=== PATIENT | female | born 1955 | race Caucasian/White ===

== ENCOUNTER 2017-06-09 11:34 | Emergency (ER) | payer MEDICARE, OTHER ==
--- NOTE | 2017-06-09 12:08 | UC ---
Back Pain HPI - HPI Summary HPI Summary: 62 YEAR OLD FEMALE PRESENTS WITH COMPLAINS OF LEFT LOWER BACK PAIN AFTER RIDING IN A TRUCK. - History of Current Complaint Chief Complaint: UCBackPain Stated Complaint: LOWER BACK PAIN Time Seen by Provider: 06/09/17 12:04 Hx Obtained From: Patient Onset/Duration: Lasting Days Severity Initially: Moderate Severity Currently: Moderate Pain Scale Used: 0-10 Numeric - 6 - Allergies/Home Medications Allergies/Adverse Reactions: Allergies Allergy/AdvReac Type Severity Reaction Status Date / Time Albuterol Allergy racing Verified 06/09/17 11:55 herat and lock jaw Codeine Allergy Nausea And Verified 06/09/17 11:54 Vomiting Sulfamethoxazole Allergy Nausea Verified 06/09/17 11:54 w/Trimethoprim [From Bactrim] Home Medications: Home Medications Canagliflozin (NF) [Invokana (NF)] 100 mg PO BID 06/09/17 [History Confirmed 09/25] Insulin Glargine [Toujeo Solostar] 50 units SUBCUT DAILY 06/09/17 [History Confirmed 06/09/17] PMH/Surg Hx/FS Hx/Imm Hx Previously Healthy: Yes - Surgical History Surgical History: Yes Surgery Procedure, Year, and Place: CHOLECYSTECTOMY, JAMES, SCAR TISSUE REMOVAL - Family History Known Family History: Positive: Diabetes - Social History Alcohol Use: None Substance Use Type: None Smoking Status (MU): Never Smoked Tobacco - Immunization History Most Recent Influenza Vaccination: 2016 Most Recent Tetanus Shot: unk Most Recent Pneumonia Vaccination: 2016 Review of Systems Constitutional: Negative Skin: Negative Eyes: Negative ENT: Negative Respiratory: Negative Cardiovascular: Negative Gastrointestinal: Negative Genitourinary: Negative Motor: Negative Neurovascular: Negative Musculoskeletal: Other: - LOW BACK PAIN Neurological: Negative Psychological: Negative Is Patient Immunocompromised?: No All Other Systems Reviewed And Are Negative: No Physical Exam Triage Information Reviewed: Yes Vital Signs Reviewed: Yes Eye Exam: Normal ENT Exam: Normal Dental Exam: Normal Neck exam: Normal Neck: Positive: 1 Respiratory Exam: Normal Cardiovascular Exam: Normal Abdominal Exam: Normal Musculoskeletal: Positive: Other: - LOW BACK PAIN LEFT SIDED Neurological Exam: Normal Psychological Exam: Normal Skin Exam: Normal Back Pain Course/Dx - Differential Dx/Diagnosis Provider Diagnoses: LEFT SIDED LOWER BACK PAIN Discharge - Discharge Plan Condition: Stable Disposition: HOME Prescriptions: Methocarbamol TAB* [Robaxin 500 MG TAB*] 500 mg PO TID PRN #30 tab PRN Reason: Spasms - Back Patient Education Materials: Sacroiliitis (ED) Referrals: Long Calderón MD [Primary Care Provider] -
[2017-06-09 12:16] VITALS: BP 113/68
== END 2017-06-09 12:10 | disposition home or self-care (01) ==
LOC: UCEAST 11:34
DX: M54.5 Low back pain (principal); Z88.6 Allergy status to analgesic agent; Z88.2 Allergy status to sulfonamides; Z79.4 Long term (current) use of insulin
CPT/HCPCS: 99212; G0463

== ENCOUNTER 2018-03-12 00:10 | Emergency (ER) | payer MEDICARE, OTHER ==
--- OUTSIDE RECORDS SUMMARY | 2018-03-12 00:25 | XMS REPORT ---
:1955 External Reference #:[id number] Author Organization [employer] Address [address] [place] [address] Phone [phone] Care Team Providers Name Role Phone Long Calderón MD Primary Care Physician Unavailable Payers Type Date Identification Numbers Payment Provider Subscriber Medicare Primary Effective: Policy Number: Medicare Ayanna Marquezn 1997 [id number] PayID: [id number] [address] [place] [address] [facility] Policy Number: [id number] [facility] Ayanna Marquezn Group Number: [id number] [address] PayID: [id number] [place] [address] [facility] Effective: Policy Number: [facility] Bari Marquezcris HOGAN 2008 [id number] Expires: 2015 Group Number: [id number] [address] PayID: [id number] [place] [address] Problems Date Description Provider Status Onset: 12/05/2012 Granulomatosis with polyangiitis Ricardo Thompson M.D. Active Onset: 12/05/2012 Chronic pain syndrome Ricardo Thompson M.D. Active Onset: 05/05/2013 Spinal stenosis of lumbar region Ricardo Thompson M.D. 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 Active Onset: 06/22/2013 Cardiac pacemaker in situ Gin Alvarado M.D. Active Onset: 06/22/2013 Difficulty breathing Gin Alvarado M.D. Active Onset: 06/22/2013 Chest pain Gin Alvarado M.D. Active Onset: 06/22/2013 Eruption Gin Alvarado M.D. Active Onset: 07/22/2015 Chronic atrial fibrillation Gin Alvarado M.D. Active Onset: 07/22/2015 Obstructive sleep apnea syndrome Gin Alvarado M.D. Active Onset: 03/02/2016 Complete atrioventricular block Gin Alvarado M.D. Active Onset: 09/20/2016 Burn of foot Charles Bosch M.D. Active Onset: 09/20/2016 Varicose veins of lower extremity Charles Bosch M.D. Active Family History Date Family Member(s) Problem(s) Comments General Coronary Artery Disease (CAD) Brother 45 yo [place], Mother hx CAD, DM General No Current Problems Social History Type Date Description Comments Marital Status Lives With Alone Occupation Disabled Cigarette Use Never Smoked Cigarettes ETOH Use Denies alcohol use Smoking Patient has never smoked Recreational Drug Use Denies Drug Use Daily Caffeine Does Not Consume Caffeine Exercise Type/Frequency Exercises regularly weights with upper body and leg exercises in chair every other day. walking in mobile home durieng bad weather. General Hx Text Allergies, Adverse Reactions, Alerts Date Description Reaction Status Severity Comments 04/02/2011 Bactrim active 04/02/2011 Codeine active 04/02/2011 Albuterol active 04/02/2011 Hydrocodone active 06/19/2013 Sulfa Antibiotics active 06/19/2013 Metformin Diarrhea active 07/22/2015 Lyrica "spacey" active per patient Medications Medication Date Status Form Strength Qnty SIG Indications Ordering Provider Prednisone 02/25 Active Tablets 1mg 1000t take 4 M31.30 abs tabs every Yoko, other day M.D. alternatin g with 5mg every other day Compression 02/25 Active Misc 2unit please use Lennox Stockings /2017 s daily as Yoko, needed for M.D. leg/foot swelling Folic Acid 12/25 Active Tablets 1mg 90tab take one M31.30 s capsule/ta Yoko, blet daily M.D. by mouth Compression 05/07 Active Misc 2unit please use M31.30 s daily as Yoko, needed for M.D. edema/ venous stasis changes Lisinopril 04/13 Active Tablets 5mg 30tab 1 po q bid Gin antonio Alvarado M.D. Furosemide 11/17 Active Tablets 40 1 daily ( taken Pili Thompson along with Potassium) Atenolol Active Tablets 25mg 180ta 1 tab by Gin / bs mouth Iola, twice a M.D. day Buspirone HCL Active Tablets 10mg 60tab 2 tabs po Unknown /0000 s hs Warfarin Sodium Active Tablets 4mg 1 tablet Shallish, alternate MD Long days 09/10 tablet as directed Klor-Con M20 Active Tablets ER 20Meq 30tab 2 tablet Unknown /0000 s po daily ( taken along with Furosemide ) Gabapentin Active Capsules 300mg 1 cap po Pesesky, bid Geno neuropathy M., N.P. Humalog Active Solution 100Unit/M before Pesesky, L meals on Geno sliding M., N.P. scale Invokana Active Tablets 300mg 1 by mouth Unknown 0000 every day Tylenol Active Tablets 325mg take 1-2 Unknown 0000 as needed every 4 hours Victoza Active Solution 18mg/3ML inject 1.2 Unknown 0000 Pen-Inject mg daily in the morning Methotrexate 12/25 Hx Tablets 2.5mg 14tab take 3 M3.30 s capsules/t Yoko, - ablets by M.D. 02/25 mouth once weekly Prednisone 10/11 Hx Tablets 5mg 1 by mouth M31.30 every day Yoko, - M.D. 02/25 [id number] 05/28 Hx Chewtabs 1mg 90uni take one R20.8 ts capsule/ta Yoko, - blet daily M.D. 08/11 sublingual ly Prednisone 05/28 Hx Tablets 1mg 180ta take 5 mg M31.30 bs daily Yoko, - M.D. 10/11 Losartan 10/05 Hx Tablets 25mg 90tab 1 po qd 786.2 Gin Lexx Crook M.D. 04/13 Neurontin 05/25 Hx Capsules 300mg 60cap 1 po bid Lexx Lui M.D. 10/04 Lisinopril 07/01 Hx Tablets 5mg 30tab 1 po qd 786.2 Gin Lexx Crook M.D. 10/05 Carvedilol 06/18 Hx Tablets 12.5mg 60tab 1 po bid Gin Lexx Crook M.D. 12/05 Prednisone 04/02 Hx Tablets 1mg 120ta 5 po qd renato Thompson M.D. - 07/21 Prednisone 11/17 Hx Tablets 5mg 30tab 1 by mouth s every day Pili Thompson - 04/02 Atenolol 11/17 Hx Tablets 25mg 1 three times a Pili Thompson - day 04/02 Premarin 11/17 Hx Tablets 0.9mg 1 every day(liza Thompson M.D. - t no 04/01 longer on) Lisinopril 11/17 Hx Tablets 2.5mg 180ta every day renato Thompson M.D. - 04/01 Omeprazole 11/[address] 20mg bid ( Stop taking per Pili Thompson - patient ) 04/01 Klor-Con M20 11/17 Hx Tablets ER 20Meq every day Pili Thompson - 07/21 Metoclopramide 11/17 Hx Tablets 10mg 1/2 prn Pili Thompson - 12/05 Warfarin Sodium 11/17 Hx Tablets 4mg Pili Thompson - 01/20 Humulin N 11/17 Hx Suspension 100Unit/M L Pili Thompson - 01/21 Magnesium Oxide 11/17 Hx Tablets 400mg Ricardo Pili Thompson - 04/01 Cyclobenzaprine 11/17 Hx Tablets 5mg 60tab 1 p.o bid antonio Thompson M.D. - 06/22 Metformin HCL Hx Tablets 500mg 60tab 1 po qd Unknown /0000 s - 09/09 Colcrys Hx Tablets 0.6mg 20tab take 2 Unknown /0000 s tabs first - now, and 06/22 then 1 tab /2012 one hour after the 2, and then one tab daily until symptoms resolve Victoza Hx Sopn 18mg/3ML 3pens inject 1.8 Unknown /0000 mg sc once - per day ( 07/[address]Christi steffen Rodriguez,[facility] MOUNTERRosales bailon)(no longer taking) Prednisone Hx Tablets 5mg 1 tablet M31.30 Shallish, /0000 po daily MD Long - Am 05/28 Novolin N 00 Hx Suspension 100Unit/M 38 in am, Unknown /0000 L 38 in p.m. - 07/15 Invokana Hx Tablets 100mg take 1 tab Shallish, /0000 in am MD Long - 11/26 Toujeo Solostar Hx Solution 300Unit/M 66 units Shallish, /0000 Pen-Inject L daily Am MD Long - (if BS 12/25 200,takes humalog) Methocarbamol Hx Tablets 500mg 1 three Unknown /0000 times a - day as 07/10 Vital Signs Date Vital Result Comment 02/25/2018 Height 67.50 inches 5'7.50" Weight 227.00 lb Heart Rate 82 /min BP Systolic 122 mmHg BP Diastolic 82 mmHg Pain Level 0 O2 % BldC Oximetry 97 % BMI (Body Mass Index) 35.0 kg/m2 12/25/2017 Height 67.50 inches 5'7.50" Weight 239.00 lb Heart Rate 68 /min BP Systolic Sitting 122 mmHg BP Diastolic Sitting 84 mmHg Respiratory Rate 14 /min Pain Level 0 BMI (Body Mass Index) 36.9 kg/m2 12/02/2017 Height 67.50 inches 5'7.50" Weight 244.00 lb Heart Rate 71 /min full minute apical BP Systolic Sitting 105 mmHg BP Diastolic Sitting 73 mmHg Respiratory Rate 16 /min Pain Level 3 O2 % BldC Oximetry 99 % ra BMI (Body Mass Index) 37.6 kg/m2 10/11/2017 Height 67.50 inches 5'7.50" Weight 242.00 lb w/ shoes Heart Rate 58 /min hard to palpate, unable to ausculatate at chest. BP Systolic Sitting 104 mmHg lue large cuff BP Diastolic Sitting 68 mmHg lue large cuff Respiratory Rate 22 /min BMI (Body Mass Index) 37.3 kg/m2 Ejection Fraction 55-60% echo 07/08/17 07/23/2017 Height 67.50 inches 5'7.50" Weight 233.50 lb with shoes Heart Rate 64 /min BP Systolic Sitting 112 mmHg Rue reg cuff BP Diastolic Sitting 76 mmHg Rue reg cuff BP Systolic Standing 114 mmHg Rue reg cuff BP Diastolic Standing 68 mmHg Rue reg cuff Respiratory Rate 18 /min BMI (Body Mass Index) 36.0 kg/m2 Ejection Fraction 55-60% 07/08/2017-echo 07/16/2017 Height 67.50 inches 5'7.50" Weight 237.75 lb with shoes Heart Rate 62 /min BP Systolic Sitting 94 mmHg Rue reg cuff BP Diastolic Sitting 70 mmHg Rue reg cuff BP Systolic Standing 100 mmHg Rue reg cuff BP Diastolic Standing 70 mmHg Rue reg cuff Respiratory Rate 16 /min O2 % BldC Oximetry 99 % at room air HR flucuate 60-41 bpms BMI (Body Mass Index) 36.7 kg/m2 Ejection Fraction 55-60% date 07/08/17 ECHO 06/11/2017 Height 67.50 inches 5'7.50" Weight 235.00 lb no shoes Heart Rate 64 /min BP Systolic Sitting 112 mmHg Rue reg cuff BP Diastolic Sitting 70 mmHg Rue reg cuff BP Systolic Standing 116 mmHg Rue reg cuff BP Diastolic Standing 74 mmHg Rue reg cuff Respiratory Rate 17 /min BMI (Body Mass Index) 36.3 kg/m2 Ejection Fraction 55-60% 02/13/2016-echo 10/17/2016 Height 67.50 inches 5'7.50" Weight 231.00 lb without shoes Heart Rate 62 /min BP Systolic Sitting 100 mmHg Lue lg cuff BP Diastolic Sitting 70 mmHg Lue lg cuff BP Systolic Standing 108 mmHg Lue lg cuff BP Diastolic Standing 70 mmHg Lue lg cuff Respiratory Rate 17 /min BMI (Body Mass Index) 35.6 kg/m2 09/20/2016 Height 66.25 inches 5'6.25" Weight 233.00 lb w/ shoes Heart Rate 70 /min irreg BP Systolic Sitting 120 mmHg Rue, reg cuff BP Diastolic Sitting 76 mmHg Rue, reg cuff Respiratory Rate 16 /min BMI (Body Mass Index) 37.3 kg/m2 Ejection Fraction 55-60% as of 02/13/16 echo 05/28/2016 Height 66.25 inches 5'6.25" Weight 235.00 lb Heart Rate 68 /min BP Systolic Sitting 114 mmHg BP Diastolic Sitting 70 mmHg Respiratory Rate 14 /min Body Temperature 97.7 F Pain Level 0 BMI (Body Mass Index) 37.6 kg/m2 05/07/2016 Height 66.25 inches 5'6.25" Weight 235.38 lb Heart Rate 72 /min BP Systolic Sitting 100 mmHg BP Diastolic Sitting 70 mmHg Respiratory Rate 14 /min Body Temperature 97.3 F Pain Level 0 BMI (Body Mass Index) 37.7 kg/m2 04/02/2016 Height 66.25 inches 5'6.25" Weight 233.00 lb with lite shoes Heart Rate 60 /min BP Systolic Sitting 100 mmHg Ra reg cuff BP Diastolic Sitting 64 mmHg Ra reg cuff BP Systolic Standing 108 mmHg Ra reg cuff BP Diastolic Standing 70 mmHg Ra reg cuff Respiratory Rate 16 /min BMI (Body Mass Index) 37.3 kg/m2 Ejection Fraction 55-60% date 02/13/16 ECHO 03/02/2016 Height 66.25 inches 5'6.25" Weight 231.00 lb with light shoes Heart Rate 70 /min BP Systolic Sitting 100 mmHg Ra lg cuff BP Diastolic Sitting 70 mmHg Ra lg cuff BP Systolic Standing 110 mmHg Ra lg cuff BP Diastolic Standing 70 mmHg Ra lg cuff Respiratory Rate 15 /min BMI (Body Mass Index) 37.0 kg/m2 Ejection Fraction 55-60% date 02/13/16 ECHO 07/22/2015 Height 66.25 inches 5'6.25" Weight 240.00 lb with shoes Heart Rate 62 /min BP Systolic Sitting 110 mmHg LA lg cuff BP Diastolic Sitting 70 mmHg LA lg cuff BP Systolic Standing 104 mmHg LA lg cuff BP Diastolic Standing 70 mmHg LA lg cuff Respiratory Rate 16 /min BMI (Body Mass Index) 38.4 kg/m2 Ejection Fraction 55-60% date 12/17/12 ECHO 01/21/2015 Height 66.25 inches 5'6.25" Weight 239.31 lb with shoes Heart Rate 62 /min BP Systolic Sitting 124 mmHg LA lg cuff BP Diastolic Sitting 80 mmHg LA lg cuff BP Systolic Standing 126 mmHg LA lg cuff BP Diastolic Standing 80 mmHg LA lg cuff Respiratory Rate 16 /min BMI (Body Mass Index) 38.3 kg/m2 Ejection Fraction 50-55% date 12/17/12 06/01/2014 Height 66.25 inches 5'6.25" Weight 250.00 lb with shoes Heart Rate 62 /min BP Systolic Sitting 116 mmHg LA, Lg cuff BP Diastolic Sitting 78 mmHg LA, Lg cuff BP Systolic Standing 114 mmHg LA BP Diastolic Standing 72 mmHg LA Respiratory Rate 16 /min BMI (Body Mass Index) 40.0 kg/m2 04/14/2014 Height 66.25 inches 5'6.25" Weight 245.00 lb Heart Rate 64 /min BP Systolic Sitting 126 mmHg BP Diastolic Sitting 70 mmHg Respiratory Rate 16 /min BMI (Body Mass Index) 39.2 kg/m2 10/05/2013 Height 66.25 inches 5'6.25" Weight 239.00 lb no shoes Heart Rate 66 /min BP Systolic Sitting 134 mmHg Rt arm, Lg cuff BP Diastolic Sitting 80 mmHg Rt arm, Lg cuff BP Systolic Standing 130 mmHg BP Diastolic Standing 80 mmHg Respiratory Rate 18 /min BMI (Body Mass Index) 38.3 kg/m2 06/22/2013 Height 66 inches 5'6" Weight 227.00 lb Heart Rate 65 /min BP Systolic Sitting 116 mmHg Rt arm, Lrg cuff BP Diastolic Sitting 70 mmHg Rt arm, Lrg cuff BP Systolic Standing 114 mmHg BP Diastolic Standing 74 mmHg Respiratory Rate 16 /min BMI (Body Mass Index) 36.6 kg/m2 05/25/2013 Height 67 inches 5'7" Weight 235.00 lb Heart Rate 64 /min BP Systolic 139 mmHg BP Diastolic 73 mmHg BMI (Body Mass Index) 36.8 kg/m2 05/05/2013 Height 242 inches 20'2" Weight 243.00 lb Heart Rate 68 /min BP Systolic Sitting 110 mmHg BP Diastolic Sitting 70 mmHg BMI (Body Mass Index) 2.9 kg/m2 04/01/2013 Height 242 inches 20'2" Weight 258.00 lb Heart Rate 84 /min BP Systolic Sitting 122 mmHg BP Diastolic Sitting 70 mmHg BMI (Body Mass Index) 3.1 kg/m2 12/05/2012 Height 242 inches Weight 65.00 lb Heart Rate 68 /min BP Systolic Sitting 121 mmHg BP Diastolic Sitting 64 mmHg BMI (Body Mass Index) 0.8 kg/m2 08/20/2012 Weight 245.00 lb Heart Rate 70 /min BP Systolic 130 mmHg BP Diastolic 70 mmHg Respiratory Rate 18 /min 04/02/2011 Height 67 inches 5'7" Weight 238.00 lb Heart Rate 78 /min BP Systolic 100 mmHg BP Diastolic 70 mmHg BMI (Body Mass Index) 37.3 kg/m2 11/17/2010 Height 67 inches 5'7" Weight 244.00 lb BMI (Body Mass Index) 38.2 kg/m2 Results Test Date Test Result H/L Range Note Protein Electrophoresis 01/15/2018 Total Protein(Pep) 7.4 g/dL 6.3 - 7.9 Albumin 2.9 g/dL 3.4-4.7 Alpha-1 Globulin 0.2 g/dL 0.1-0.3 Alpha-2 Globulin 1.4 g/dL 0.6-1.0 Beta Globulin 1.0 g/dL 0.7-1.2 Gamma Globulin 1.9 g/dL 0.6-1.6 Albumin/Globulin Ratio 0.63 Impression See Comment 1 Laboratory test finding 01/15/2018 C Reactive Protein 4.50 mg/L < 5.00 2 Erythrocyte Sed Rate 56 mm/Hr High 0-30 3 Myeloperoxidase AB <0.2 U 4 Proteinase 3 0.3 U 5 Comp Metabolic Panel 01/15/2018 Sodium 141 mmol/L 139-145 Potassium 3.9 mmol/L 3.5-5.0 Chloride 107 mmol/L 101-111 Co2 Carbon Dioxide 25 mmol/L 22-32 Anion Gap 9 mmol/L 2-11 Glucose 191 mg/dL High 70-100 Blood Urea Nitrogen 16 mg/dL 6-24 Creatinine 0.70 mg/dL 0.51-0.95 BUN/Creatinine Ratio 22.9 High 8-20 Calcium 9.3 mg/dL 8.6-10.3 Total Protein 7.1 g/dL 6.4-8.9 Albumin 3.5 g/dL 3.2-5.2 Globulin 3.6 g/dL 2-4 Albumin/Globulin Ratio 1.0 1-3 Total Bilirubin 0.40 mg/dL 0.2-1.0 Alkaline Phosphatase 65 U/L 34-104 Alt 15 U/L 7-52 Ast 26 U/L 13-39 Egfr Non- 84.5 >60 Egfr 108.7 >60 6 CBC Auto Diff 01/15/2018 White Blood Count 7.7 10^3/uL 3.5-10.8 Red Blood Count 4.53 10^6/uL 4.0-5.4 Hemoglobin 12.9 g/dL 12.0-16.0 Hematocrit 39 % 35-47 Mean Corpuscular Volume 86 fL 80-97 Mean Corpuscular Hemoglobin 29 pg 27-31 Mean Corpuscular HGB Conc 33 g/dL 31-36 Red Cell Distribution Width 14 % 10.5-15 Platelet Count 348 10^3/uL 150-450 Mean Platelet Volume 8.1 um3 7.4-10.4 Abs Neutrophils 3.8 10^3/uL 1.5-7.7 Abs Lymphocytes 3.1 10^3/uL 1.0-4.8 Abs Monocytes 0.6 10^3/uL 0-0.8 Abs Eosinophils 0.1 10^3/uL 0-0.6 Abs Basophils 0 10^3/uL 0-0.2 Abs Nucleated RBC 0 10^3/uL Granulocyte % 50.1 % 38-83 Lymphocyte % 40.4 % 25-47 Monocyte % 7.8 % High 0-7 Eosinophil % 1.2 % 0-6 Basophil % 0.5 % 0-2 Nucleated Red Blood Cells % 0.1 Urine Culture And Sensitivities 12/10/2017 Urine Culture SEE RESULT BELOW 7 Urinalysis Profile 12/10/2017 Urine Color Yellow Urine Appearance Clear Urine Specific Cunningham 1.023 1.010-1.030 Urine pH 5.0 5-9 Urine Urobilinogen Negative Negative Urine Ketones Negative Negative Urine Protein Negative Negative Urine Leukocytes Trace Negative Urine Blood Negative Negative Urine Nitrite Negative Negative Urine Bilirubin Negative Negative Urine Glucose 3+(>=500 mg/dL) Negative Urine White Blood Cell Trace(0-5/hpf) Absent Urine Red Blood Cell Trace(0-2/hpf) Absent Urine Bacteria Absent Absent Urine Squamous Epithelial Cell Present Absent Comp Metabolic Panel 12/10/2017 Sodium 139 mmol/L 139-145 Potassium 4.5 mmol/L 3.5-5.0 Chloride 103 mmol/L 101-111 Co2 Carbon Dioxide 26 mmol/L 22-32 Anion Gap 10 mmol/L 2-11 Glucose 249 mg/dL High 70-100 Blood Urea Nitrogen 30 mg/dL High 6-24 Creatinine 0.90 mg/dL 0.51-0.95 BUN/Creatinine Ratio 33.3 High 8-20 Calcium 9.6 mg/dL 8.6-10.3 Total Protein 7.1 g/dL 6.4-8.9 Albumin 3.7 g/dL 3.2-5.2 Globulin 3.4 g/dL 2-4 Albumin/Globulin Ratio 1.1 1-3 Total Bilirubin 0.40 mg/dL 0.2-1.0 Alkaline Phosphatase 68 U/L 34-104 Alt 19 U/L 7-52 Ast 26 U/L 13-39 Egfr Non- 63.4 >60 Egfr 81.6 >60 8 Laboratory test finding 12/10/2017 Creatine Kinase(CK) 78 U/L 10-223 TSH (Thyroid Stim Horm) 2.10 mcIU/mL 0.34-5.60 C Reactive Protein 11.27 mg/L High < 5.00 9 CBC Auto Diff 12/10/2017 White Blood Count 7.5 10^3/uL 3.5-10.8 Red Blood Count 4.62 10^6/uL 4.0-5.4 Hemoglobin 13.3 g/dL 12.0-16.0 Hematocrit 40 % 35-47 Mean Corpuscular Volume 86 fL 80-97 Mean Corpuscular Hemoglobin 29 pg 27-31 Mean Corpuscular HGB Conc 33 g/dL 31-36 Red Cell Distribution Width 15 % 10.5-15 Platelet Count 278 10^3/uL 150-450 Mean Platelet Volume 8.3 um3 7.4-10.4 Abs Neutrophils 3.9 10^3/uL 1.5-7.7 Abs Lymphocytes 2.7 10^3/uL 1.0-4.8 Abs Monocytes 0.6 10^3/uL 0-0.8 Abs Eosinophils 0.1 10^3/uL 0-0.6 Abs Basophils 0.1 10^3/uL 0-0.2 Abs Nucleated RBC 0 10^3/uL Granulocyte % 52.3 % 38-83 Lymphocyte % 36.3 % 25-47 Monocyte % 8.7 % High 0-7 Eosinophil % 1.7 % 0-6 Basophil % 1.0 % 0-2 Nucleated Red Blood Cells % 0.2 Laboratory test finding 12/10/2017 Erythrocyte Sed Rate 55 mm/Hr High 0- 30 Anca AB Ser If 12/10/2017 C-Anca Negative Negative P-Anca Positive Negative 10 Laboratory test finding 12/10/2017 Anti Double Stranded Dna <12.3 IU/mL 11 AB CBC Auto Diff 07/25/2017 White Blood Count 8.9 10^3/uL 3.5-10.8 Red Blood Count 4.99 10^6/uL 4.0-5.4 Hemoglobin 14.3 g/dL 12.0-16.0 Hematocrit 43 % 35-47 Mean Corpuscular Volume 87 fL 80-97 Mean Corpuscular Hemoglobin 29 pg 27-31 Mean Corpuscular HGB Conc 33 g/dL 31-36 Red Cell Distribution Width 14 % 10.5-15 Platelet Count 310 10^3/uL 150-450 Mean Platelet Volume 8 um3 7.4-10.4 Abs Neutrophils 5.8 10^3/uL 1.5-7.7 Abs Lymphocytes 2.4 10^3/uL 1.0-4.8 Abs Monocytes 0.5 10^3/uL 0-0.8 Abs Eosinophils 0.2 10^3/uL 0-0.6 Abs Basophils 0.1 10^3/uL 0-0.2 Abs Nucleated RBC 0 10^3/uL Granulocyte % 65.1 % 38-83 Lymphocyte % 26.4 % 25-47 Monocyte % 5.5 % 1-9 Eosinophil % 1.9 % 0-6 Basophil % 1.1 % 0-2 Nucleated Red Blood Cells % 0 Laboratory test finding 07/25/2017 B-Type Natriuretic 153 pg/mL High 12 Peptide BNP Basic Metabolic Panel 07/25/2017 Sodium 139 mmol/L 133-145 Potassium 4.9 mmol/L 3.5-5.0 Chloride 104 mmol/L 101-111 Co2 Carbon Dioxide 28 mmol/L 22-32 Anion Gap 7 mmol/L 2-11 Glucose 151 mg/dL High 70-100 Blood Urea Nitrogen 23 mg/dL 6-24 Creatinine 0.69 mg/dL 0.51-0.95 BUN/Creatinine Ratio 33.3 High 8-20 Calcium 10.1 mg/dL 8.6-10.3 Egfr Non- 86.2 >60 Egfr 110.9 >60 13 Laboratory test finding 07/25/2017 Magnesium 2.0 mg/dL 1.9-2.7 Laboratory test finding 07/23/2017 B-Type Natriuretic Peptide <pending> BNP Laboratory test finding 07/23/2017 Magnesium <pending> TSH (Thyroid Stim Horm) <pending> Laboratory test 07/10/2017 Surgical Pathology SEE RESULT BELOW 14 finding Laboratory test 07/10/2017 Point of Care 173 mg/dL High 70-100 15 finding Glucose Laboratory test 10/29/2016 Apligraf SEE RESULTS BELO 16, 17 finding <SEE NOTE> Laboratory test 05/07/2016 C Reactive Protein 4.41 mg/L < 5.00 18 finding Erythrocyte Sed Rate 39 mm/Hr High 0-30 Urine Culture And 05/07/2016 Urine Culture SEE RESULT BELOW 19 Sensitivities Anca AB Ser If 05/07/2016 C-Anca Negative Negative P-Anca Positive Negative 20 Comp Metabolic Panel 05/07/2016 Sodium 136 mmol/L 133-145 Potassium 4.4 mmol/L 3.5-5.0 Chloride 102 mmol/L 101-111 Co2 Carbon Dioxide 25 mmol/L 22-32 Anion Gap 9 mmol/L 2-11 Glucose 300 mg/dL High 70-100 Blood Urea Nitrogen 25 mg/dL High 6-24 Creatinine 0.70 mg/dL 0.51-0.95 BUN/Creatinine Ratio 35.7 High 8-20 Calcium 9.6 mg/dL 8.6-10.3 Total Protein 7.6 g/dL 6.4-8.9 Albumin 3.9 g/dL 3.2-5.2 Globulin 3.7 g/dL 2-4 Albumin/Globulin Ratio 1.1 1-3 Total Bilirubin 0.70 mg/dL 0.2-1.0 Alkaline Phosphatase 48 U/L 34-104 Alt 30 U/L 7-52 Ast 44 U/L High 13-39 Egfr Non- 85.1 >60 Egfr 109.4 >60 21 CBC Auto Diff 05/07/2016 White Blood Count 7.8 10^3/uL 3.5-10.8 Red Blood Count 4.59 10^6/uL 4.0-5.4 Hemoglobin 13.2 g/dL 12.0-16.0 Hematocrit 40 % 35-47 Mean Corpuscular Volume 87 fL 80-97 Mean Corpuscular Hemoglobin 29 pg 27-31 Mean Corpuscular HGB Conc 33 g/dL 31-36 Red Cell Distribution Width 14 % 10.5-15 Platelet Count 282 10^3/uL 150-450 Mean Platelet Volume 9 um3 7.4-10.4 Abs Neutrophils 4.5 10^3/uL 1.5-7.7 Abs Lymphocytes 2.5 10^3/uL 1.0-4.8 Abs Monocytes 0.7 10^3/uL 0-0.8 Abs Eosinophils 0.1 10^3/uL 0-0.6 Abs Basophils 0.1 10^3/uL 0-0.2 Abs Nucleated RBC 0.01 10^3/uL Granulocyte % 57.0 % 38-83 Lymphocyte % 31.7 % 25-47 Monocyte % 8.6 % 1-9 Eosinophil % 1.7 % 0-6 Basophil % 1.0 % 0-2 Nucleated Red Blood Cells % 0.2 Laboratory test finding 05/07/2016 Creatine Kinase(CK) 97 U/L 10-223 Free Cortisol Serum 0.11 g/dL 22 Vitamin B12 And Folate Serum 05/07/2016 Vitamin B12 222 pg/mL 180-914 23 Folic Acid (Folate) > 20.00 ng/mL >3.99 Vitamin D 1,25 And Vitamin 05/07/2016 Vitamin D, 1,25 Dihydroxy 46 pg/mL 18-78 24 D,2 Urinalysis Profile 05/07/2016 Urine Color Yellow Urine Appearance Cloudy Urine Specific Cunningham 1.023 1.010-1.030 Urine pH 5.0 5-9 Urine Urobilinogen Negative Negative Urine Ketones Negative Negative Urine Protein Negative Negative Urine Leukocytes 3+ Negative Urine Blood Negative Negative Urine Nitrite Negative Negative Urine Bilirubin Negative Negative Urine Glucose 3+(>=500 mg/dL) Negative Urine White Blood Cell Trace(0-5/hpf) Absent Urine Red Blood Cell Trace(0-2/hpf) Absent Urine Bacteria Absent Absent Urine Squamous Epithelial Cell Present Absent Order 03/02/2016 EKG <pending> Urinalysis 04/02/2013 Urine Color Yellow Urine Appearance Clear Urine Specific Cunningham 1.031 High 1.010-1.030 Urine Esterase Negative Negative Urine Nitrate Negative Negative Urine Urobilinogen Negative E.U./dL Negative Urine Protein Trace mg/dL Negative Urine pH 6.0 5-9 Urine Blood Trace Negative Urine Ketones 1+ mg/dL Negative Urine Bilirubin Negative Negative Urine Glucose Negative mg/dL Negative Neutrophil Cytoplasmic AB 04/02/2013 C-Anca Negative Negative P Anca Negative Negative Anca Reviewed By MD Ajit Jacobs <SEE NOTE> 25 Urine Microscopic 04/02/2013 Urine WBC 1+ (<10 /hpf) None Seen Urine RBC 1+ (<3 /hpf) None Seen Urine Mucus Present /lpf Absent Urine Epithelial Cells 2+ Squamous /hpf None Seen Bacteria Urine 1+ None Seen Anca Panel For Vasculitis 04/02/2013 Myeloperoxidase AB <0.2 U 26 Proteinase 3 AB <0.2 U 27 CBC With Manual Diff 04/02/2013 White Blood Count 7.2 10^3/uL 4.8-10.8 Red Blood Count 4.17 10^6/uL 4.0-5.4 Hemoglobin 12.2 g/dL 12.0-16.0 Hematocrit 37 % 35-47 Mean Corpuscular Volume 89 fL 80-97 Mean Corpuscular Hemoglobin 29 pg 27-31 Mean Corpuscular HGB Conc 33 g/dL 31-36 Red Cell Distribution Width 14 % 10.5-15 Platelet Count 248 10^3/uL 150-450 Mean Platelet Volume 9 um3 7.4-10.4 Abs Neutrophils 3.9 10^3/uL 1.5-7.7 Abs Lymphocytes 2.5 10^3/uL 1.0-4.8 Abs Monocytes 0.6 10^3/uL 0-0.8 Abs Eosinophils 0.1 10^3/uL 0-0.6 Abs Basophils 0.1 10^3/uL 0-0.2 Abs Nucleated RBC 0.01 10^3/uL Neutrophil % 54 % 38-83 Lymphocytes % 42 % 25-47 Monocytes % 4 % 0-13 RBC Morphology Normal Normal Comp Metabolic Panel 04/02/2013 Sodium 139 mmol/L 133-145 Potassium 4.0 mmol/L 3.5-5.0 Chloride 104 mmol/L 101-111 Co2 Carbon Dioxide 27.0 mmol/L 22-32 Anion Gap 8.0 mmol/L 2-11 Glucose 211 mg/dL High 70-100 Blood Urea Nitrogen 17 mg/dL 6-24 Creatinine 0.60 mg/dL 0.50-1.40 BUN/Creatinine Ratio 28.3 High 8-20 Calcium 9.2 mg/dL 8.1-9.9 Total Protein 6.6 g/dL 6.2-8.1 Albumin 3.2 g/dL Low 3.6-5.4 Globulin 3.4 g/dL 2-4 Albumin/Globulin Ratio 0.9 Low 1-3 Total Bilirubin 0.9 mg/dL 0.4-1.5 Alkaline Phosphatase 48 U/L 30-110 Alt 18 U/L 14-54 Ast 44 U/L High 12-42 Egfr Non- 102.7 >60 Egfr 132.1 >60 28 Laboratory test finding 04/02/2013 C Reactive Protein 1.3 mg/dL High Less than 0.5 Erythrocyte Sed Rate 48 mm/Hr High 0-30 Urinalysis 01/05/2013 Urine Color Yellow Urine Appearance Clear Urine Specific Cunningham 1.023 1.010-1.030 Urine Esterase Trace Negative Urine Nitrate Negative Negative Urine Urobilinogen Negative E.U./dL Negative Urine Protein Negative mg/dL Negative Urine pH 5.5 5-9 Urine Blood Negative Negative Urine Ketones Negative mg/dL Negative Urine Bilirubin Negative Negative Urine Glucose Trace mg/dL Negative Comp Metabolic Panel 01/05/2013 Sodium 138 mmol/L 133-145 Potassium 4.2 mmol/L 3.5-5.0 Chloride 101 mmol/L 101-111 Co2 Carbon Dioxide 29.0 mmol/L 22-32 Anion Gap 8.0 mmol/L 2-11 Glucose 213 mg/dL High 70-100 Blood Urea Nitrogen 11 mg/dL 6-24 Creatinine 0.70 mg/dL 0.50-1.40 BUN/Creatinine Ratio 15.7 8-20 Calcium 9.2 mg/dL 8.1-9.9 Total Protein 7.0 g/dL 6.2-8.1 Albumin 3.4 g/dL Low 3.6-5.4 Globulin 3.6 g/dL 2-4 Albumin/Globulin Ratio 0.9 Low 1-3 Total Bilirubin 0.7 mg/dL 0.4-1.5 Alkaline Phosphatase 50 U/L 30-110 Alt 21 U/L 14-54 Ast 48 U/L High 12-42 Egfr Non- 86.2 >60 Egfr 110.9 >60 29 Neutrophil Cytoplasmic AB 01/05/2013 C-Anca Negative Negative P Anca Negative Negative Anca Reviewed By MD Ajit Jacobs <SEE NOTE> 30 Laboratory test finding 01/05/2013 Erythrocyte Sed Rate 48 mm/Hr High 0- 30 C Reactive Protein 1.2 mg/dL High Less than 0.5 CBC With Manual Diff 01/05/2013 White Blood Count 9.3 10^3/uL 4.8-10.8 Red Blood Count 4.36 10^6/uL 4.0-5.4 Hemoglobin 12.8 g/dL 12.0-16.0 Hematocrit 40 % 35-47 Mean Corpuscular Volume 91 fL 80-97 Mean Corpuscular Hemoglobin 29 pg 27-31 Mean Corpuscular HGB Conc 32 g/dL 31-36 Red Cell Distribution Width 16 % High 10.5-15 Platelet Count 261 10^3/uL 150-450 Mean Platelet Volume 9 um3 7.4-10.4 Abs Neutrophils 5.4 10^3/uL 1.5-7.7 Abs Lymphocytes 2.9 10^3/uL 1.0-4.8 Abs Monocytes 0.8 10^3/uL 0-0.8 Abs Eosinophils 0.1 10^3/uL 0-0.6 Abs Basophils 0.1 10^3/uL 0-0.2 Abs Nucleated RBC 0 10^3/uL Neutrophil % 60 % 38-83 Lymphocytes % 35 % 25-47 Monocytes % 3 % 0-13 Eosinophils % 1 % 0-6 Basophil % 1 % 0-2 [place] Cells 1+ Laboratory test finding 01/05/2013 Creatine Kinase 65 U/L 0-200 TSH (Thyroid Stimulating Horm) 1.30 miu/mL 0.34-5.60 Free T4 1.09 ng/mL 0.61-1.24 Vitamin B12 227 pg/mL 180-914 Urine Microscopic 01/05/2013 Urine WBC 1+ (<10 /hpf) None Seen Urine RBC None Seen None Seen Urine Mucus Present /lpf Absent Urine Epithelial Cells 3+ Squamous /hpf None Seen Bacteria Urine 2+ None Seen Basic Metabolic Panel 06/16/2012 Sodium 136 mmol/L 133-145 Potassium 4.3 mmol/L 3.5-5.0 Chloride 99 mmol/L Low 101-111 Co2 Carbon Dioxide 29.0 mmol/L 22-32 Anion Gap 8.0 mmol/L 2-11 Glucose 203 mg/dL High 70-100 Blood Urea Nitrogen 18 mg/dL 6-24 Creatinine 0.60 mg/dL 0.50-1.40 BUN/Creatinine Ratio 30.0 High 8-20 Calcium 9.2 mg/dL 8.1-9.9 Egfr Non- 103.0 >60 Egfr 132.5 >60 31 Laboratory test finding 06/16/2012 B Type Natriuretic 153.0 pg/mL High 0- 100 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 The National Kidney Disease Education Program (NKDEP) does not endorse the use of the MDRD equation for patients that are not between the ages of 18 and 70, are , have extremes of body size, muscle mass, or nutritional status, or are non- or non-. According to the National Kidney Foundation, irrespective of diagnosis, the stage of the disease is based on the level of kidney function: Stage Description GFR(mL/min/1.73 m(2)) 1 Kidney damage with normal or decreased GFR 90 2 Kidney damage with mild decrease in GFR 60-89 3 Moderate decrease in GFR 30-59 4 Severe decrease in GFR 15-29 5 Kidney failure <15 (or dialysis) 7 SEE RESULT BELOW Name: AYANNA MOHAMUD : [address]: Lennox Babcock MD Acct: [id number] Unit: [id number] AGE: 62 Location: LAB Re12/10/17 SEX: F Status: REG REF SPEC: [id number] [place]HEL[place]: 12/10/17-[address]: Lennox Babcock MD REQ: [id number] RECD: 12/10/17 STATUS: COMP _ SOURCE: URINE SPDESC: ORDERED: Urine Culture Procedure Result Reported Site Urine Culture Final 12/11/17- 1338 ML Organism 1 AEROCOCCUS URINAE [place] Count 75-100,000 (Many) CFU/ML Aerococcus isolates are too fastidious for routine susceptibility studies. Aerococcus are usually susceptible to penicillin, amoxicillin, piperacillin, cefipime, rifampin and vancomycin. Moderate to good activity occurs with the quinolones, tetracyclines and erythromycin. (Koneman's Color Mcalester and Textbook of Diagnostic Microbiology 6th Ed. 2006, p. 705-6.) * - [facility] . END OF REPORT DEPARTMENT OF PATHOLOGY, [address] [place] [address] Ajit Lamb M.D. Director [facility] # [id number] 8 Because ethnic data is not always readily available, this report includes an eGFR for both -Americans and non- Americans. The National Kidney Disease Education Program (NKDEP) does not endorse the use of the MDRD equation for patients that are not between the ages of 18 and 70, are , have extremes of body size, muscle mass, or nutritional status, or are non- or non-. According to the National Kidney Foundation, irrespective of diagnosis, the stage of the disease is based on the level of kidney function: Stage Description GFR(mL/min/1.73 m(2)) 1 Kidney damage with normal or decreased GFR 90 2 Kidney damage with mild decrease in GFR 60-89 3 Moderate decrease in GFR 30-59 4 Severe decrease in GFR 15-29 5 Kidney failure <15 (or dialysis) 9 Acute inflammation: >10.00 10 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 Suggest further testing for anti-myeloperoxidase (anti-MPO) antibodies, if clinically indicated. ADDITIONAL INFORMATION This test was developed and its performance characteristics determined by [facility] in a manner consistent with CLIA requirements. This test has not been cleared or approved by the U.S. Food and Drug Administration. Test Performed by: [facility] - [place] [id number] 11 REFERENCE VALUE <30.0 (Negative) Test Performed by: [facility] - [address] [address] 12 >100 to <200 pg/mL: likely compensated congestive heart failure (CHF) 200 to 400 pg/mL: likely moderate CHF >400 pg/mL: likely moderate to severe CHF 13 Because ethnic data is not always readily available, this report includes an eGFR for both -Americans and non- Americans. The National Kidney Disease Education Program (NKDEP) does not endorse the use of the MDRD equation for patients that are not between the ages of 18 and 70, are , have extremes of body size, muscle mass, or nutritional status, or are non- or non-. According to the National Kidney Foundation, irrespective of diagnosis, the stage of the disease is based on the level of kidney function: Stage Description GFR(mL/min/1.73 m(2)) 1 Kidney damage with normal or decreased GFR 90 2 Kidney damage with mild decrease in GFR 60-89 3 Moderate decrease in GFR 30-59 4 Severe decrease in GFR 15-29 5 Kidney failure <15 (or dialysis) 14 SEE RESULT BELOW Name: CADEAYANNA : [address]: Gin Alvarado MD Acct: [id number] Unit: [id number] AGE: 62 Location: [facility] Re07/10/17 SEX: F Status: REG REF SPEC: [id number] CHEL[place]: 07/10/17-[address]: Gin Alvarado MD REQ: [id number] RECD: 07/10/17 STATUS: SOUT _ ORDERED: LEVEL 1 FINAL DIAGNOSIS Pacemaker generator, removal: Foreign body (pacemaker generator) (Gross diagnosis). PRE-OPERATIVE DIAGNOSIS Pacemaker generator end of life GROSS DESCRIPTION The specimen is received fresh with no source identified and a requisition labeled, Pacemaker Generator, and consists of a 5.0 x 4.5 x 0.7 cm silver metallic medical record administrator. The following inscription is identified: [employer] MRI SureScan SN [id number] OAE-DDDR CH. Per established hospital medical staff protocol, no tissue is submitted. Gross only. Signed (signature on file) Briseyda Conley MD 11/23 0828 END OF REPORT * ML=Testing performed at Main Lab DEPARTMENT OF PATHOLOGY, [address] [place] [address] Ajit Lamb M.D. Director [facility] # [id number] Principal Biostatistician: [id number] FU 17 SEE RESULTS BELOW [id number] APLIGRAF TRANSFUSED 10/30/16 0930 18 Acute inflammation: >10.00 19 SEE RESULT BELOW Name: AYANNA MOHAMUD : [address]: Lennox Babcock MD Acct: [id number] Unit: [id number] AGE: 61 Location: LAB Re05/07/16 SEX: F Status: REG REF SPEC: [id number] [place]: 05/07/16-1250 [facility] DR: Lennox Babcock MD REQ: [id number] RECD: 05/07/16-3224 STATUS: COMP _ SOURCE: URINE SPDESC: ORDERED: Urine Culture Procedure Result Reported Site Urine Culture Final 05/08/16- 1618 ML No growth of clinically significant organisms * ML - MAIN LAB ([facility]) . END OF REPORT * ML=Testing performed at Main Lab DEPARTMENT OF PATHOLOGY, [address] [place] [address] Ajit Lamb M.D. Director [facility] # [id number] 20 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 Suggest further testing for anti-myeloperoxidase (anti-MPO) antibodies, if clinically indicated. Test Performed by: [place] [address] Nurse Special: Jaspreet Sanchez II, M.D., Ph.D. 21 Because ethnic data is not always readily available, this report includes an eGFR for both -Americans and non- Americans. The National Kidney Disease Education Program (NKDEP) does not endorse the use of the MDRD equation for patients that are not between the ages of 18 and 70, are , have extremes of body size, muscle mass, or nutritional status, or are non- or non-. According to the National Kidney Foundation, irrespective of diagnosis, the stage of the disease is based on the level of kidney function: Stage Description GFR(mL/min/1.73 m(2)) 1 Kidney damage with normal or decreased GFR 90 2 Kidney damage with mild decrease in GFR 60-89 3 Moderate decrease in GFR 30-59 4 Severe decrease in GFR 15-29 5 Kidney failure <15 (or dialysis) 22 Adult Reference Ranges for Cortisol, Free, LC/MS/MS: 8:00 - 10:00 AM 0.07-0.93 mcg/dL 4:00 - 6:00 PM 0.04-0.45 mcg/dL 10:00 - 11:00 PM 0.04-0.35 mcg/dL This test was developed and its analytical performance characteristics have been determined by [facility] [place]. It has not been cleared or approved by FDA. This assay has been validated pursuant to the CLIA regulations and is used for clinical purposes. Test Performed by: [facility] [address] [place] [address] 23 Normal Range 180 to 914 Indeterminate Range 145 to 180 Deficient Range <145 24 Test Performed by: [place] [address] Nurse Special: Jaspreet Sanchez II, M.D., Ph.D. 25 Ajit Lamb 26 -- REFERENCE VALUE -- <0.4 (Negative) 27 -- REFERENCE VALUE -- <0.4 (Negative) Test Performed by: [place] [address] Nurse Special: Brandon Perez III, M.D. 28 Because ethnic data is not always readily available, this report includes an eGFR for both -Americans and non- Americans. The National Kidney Disease Education Program (NKDEP) does not endorse the use of the MDRD equation for patients that are not between the ages of 18 and 70, are , have extremes of body size, muscle mass, or nutritional status, or are non- or non-. According to the National Kidney Foundation, irrespective of diagnosis, the stage of the disease is based on the level of kidney function: Stage Description GFR(mL/min/1.73 m(2)) 1 Kidney damage with normal or decreased GFR 90 2 Kidney damage with mild decrease in GFR 60-89 3 Moderate decrease in GFR 30-59 4 Severe decrease in GFR 15-29 5 Kidney failure <15 (or dialysis) 29 Because ethnic data is not always readily available, this report includes an eGFR for both -Americans and non- Americans. The National Kidney Disease Education Program (NKDEP) does not endorse the use of the MDRD equation for patients that are not between the ages of 18 and 70, are , have extremes of body size, muscle mass, or nutritional status, or are non- or non-. According to the National Kidney Foundation, irrespective of diagnosis, the stage of the disease is based on the level of kidney function: Stage Description GFR(mL/min/1.73 m(2)) 1 Kidney damage with normal or decreased GFR 90 2 Kidney damage with mild decrease in GFR 60-89 3 Moderate decrease in GFR 30-59 4 Severe decrease in GFR 15-29 5 Kidney failure <15 (or dialysis) 30 Ajit Lamb 31 Because ethnic data is not always readily available, this report includes an eGFR for both -Americans and non- Americans. The National Kidney Disease Education Program (NKDEP) does not endorse the use of the MDRD equation for patients that are not between the ages of 18 and 70, are , have extremes of body size, muscle mass, or nutritional status, or are non- or non-. According to the National Kidney Foundation, irrespective of diagnosis, the stage of the disease is based on the level of kidney function: Stage Description GFR(mL/min/1.73 m(2)) 1 Kidney damage with normal or decreased GFR 90 2 Kidney damage with mild decrease in GFR 60-89 3 Moderate decrease in GFR 30-59 4 Severe decrease in GFR 15-29 5 Kidney failure <15 (or dialysis) Procedures Date CPT Code Description Status 11/26/2017 83849 Pace Maker Eval W/Iterative Adjment Dual Lead Completed 11/26/2017 13496 Pace Maker Eval W/Iterative Adjment Dual Lead Completed 10/21/2017 45685 Pace Maker Eval W/Iterative Adjment Dual Lead Completed 10/21/2017 82902 Pace Maker Eval W/Iterative Adjment Dual Lead Completed 10/11/2017 09732 EKG Tracing & Interpretation Completed 08/29/2017 23956 Pace Maker Eval W/Iterative Adjment Dual Lead Completed 08/29/2017 01845 Pace Maker Eval W/Iterative Adjment Dual Lead Completed 07/23/2017 95064 Pace Maker Eval W/Iterative Adjment Dual Lead Completed 07/23/2017 33138 Pace Maker Eval W/Iterative Adjment Dual Lead Completed 07/16/2017 57463 Pace Maker Eval W/Iterative Adjment Dual Lead Completed 07/16/2017 02932 Pace Maker Eval W/Iterative Adjment Dual Lead Completed 07/10/2017 05388 Removal With Replacement Dual Lead System Pulse Completed Generator 07/08/2017 90273 EKG, Interpretation Only Completed 07/08/2017 76346 Stress Test Supervsn W/Out I/R Completed 07/08/2017 04168 Treadmill Interp/Report Only Completed 07/08/2017 10405 ECHO Transthorasic Realtime 2D W Doppler & Color Flow Completed Hosp 07/03/2017 06444 Pace Maker Eval W/Iterative Adjment Dual Lead Completed 07/03/2017 58753 Pace Maker Eval W/Iterative Adjment Dual Lead Completed 05/10/2017 33832 Pace Maker Eval W/Iterative Adjment Dual Lead Completed 04/09/2017 89062 Pace Maker Eval W/Iterative Adjment Dual Lead Completed 01/15/2017 07979 Interrogation Device Eval In Person W/ Completed Analysis,Single,Dual,Mul 11/13/2016 22888 Removal Devitalization Tissue Wound Less Than Equal 20 Completed Square CM 10/30/2016 00941 Application Skin Graft Face,Scalp,Eyelids,Mouth, Neck Completed Up To 100CM 10/23/2016 63821 Burn Treatment W/O Anes Small Completed 10/17/2016 71885 Pace Maker Eval W/Iterative Adjment Dual Lead Completed 10/16/2016 71088 Burn Treatment W/O Anes Small Completed 10/09/2016 13040 Burn Treatment W/O Anes Small Completed 09/25/2016 55116 Burn Treatment W/O Anes Small Completed 09/19/2016 37284 Debridement Skin,& sq Tissue Completed 03/09/2016 57682 Interrogation Device Eval In Person W/ Completed Analysis,Single,Dual,Mul 03/02/2016 68822 Interrogation Device Eval In Person W/ Completed Analysis,Single,Dual,Mul 02/13/2016 44325 ECHO Transthoracic, Real-Time 2D With Doppler And Color Completed Flow 02/13/2016 27533 Pace Maker Eval W/Iterative Adjment Dual Lead Completed 07/14/2015 99170 Pace Maker Eval W/Iterative Adjment Dual Lead Completed 12/23/2014 35696 Mobile Cardiovascular Telemetry Over 24 HR Up To 30 Completed Days 12/14/2014 72191 Pace Maker Eval W/Iterative Adjment Dual Lead Completed 06/01/2014 57553 Interrogation Device Eval In Person W/DR Completed Analysis,Single,Dual,Mul 03/24/2014 94462 Pace Maker Eval W/Iterative Adjment Dual Lead Completed 08/21/2013 28227 Pace Maker Eval W/Iterative Adjment Dual Lead Completed 06/25/2013 72877 Pace Maker Eval W/Iterative Adjustment Single Lead Completed 06/22/2013 98736 Pace Maker Eval W/Iterative Adjment Dual Lead Completed 05/25/2013 76201 Rad Exam; Foot Comp Completed 05/25/2013 96654 Rad Exam; Ankle Comp Completed 05/04/2013 94690 Pace Maker Eval W/Iterative Adjment Dual Lead Completed 12/17/2012 58753 ECHO Transthoracic, Real-Time 2D With Doppler And Color Completed Flow 10/02/2012 23850 Nerve Conduction 05-06 Studies Completed 10/02/2012 88104 Needle Electromyography Complete, Five Or More Muscles Completed Studied 07/14/2012 41958 Pace Maker Eval W/Iterative Adjment Dual Lead Completed 06/27/2012 98827 EKG Tracing & Interpretation Completed Encounters Type Date Location Provider CPT E/M Dx Office Visit 12/25/2017 [facility] Lennox Babcock M.D. 68573 M31.30 4:20p Of [facility] Z79.52 E13.42 R53.1 Office Visit 12/02/2017 3:20p [facility] Lennox Babcock 73194 M31.30 Of Jerry Arriaza.Sabiha Z79.52 E13.42 R53.1 Office Visit 10/11/2017 11:20a [facility] Gin Alvarado M.D. 89725 I48.2 [facility] AT [facility] Z95.0 R06.02 I44.2 Office Visit 07/23/2017 1:30p [facility] Of [facility] JOSÉ Hackett 50088 I48.2 R06.02 Z95.0 Office Visit 07/16/2017 3:00p [facility] Of [facility] JOSÉ Hackett 06968 Z95.0 I48.2 R06.02 Office Visit 07/08/2017 3:04p [facility] Of Jesus Toscano, 22273 R07.9 [facility] Pili R06.02 Z95.0 Office Visit 07/08/2017 7:34[facility] [place] [address] I48.2 Assoc,pc Hospitalists Pili E11.9 R07.9 Z95.0 Office Visit 06/11/2017 9:00a [facility] Gin Alvarado M.D. 56801 I48.2 [facility] Z95.0 Office Visit 11/27/2016 10:36a [facility] [place] Elena, 43424 E11.621 AT [facility] M.DAlyssa L97.512 Office Visit 11/06/2016 4:18p [facility] [place] Elena, 66281 E11.621 AT [facility] M.DAlyssa T25.321A L97.512 X19.xxxA Office Visit 10/17/2016 10:00a [facility] Of [facility] JOSÉ Hackett 57749 Z95.0 I48.2 R42 Office Visit 09/20/2016 1:30p [facility] Chalres Bosch, 98713 T25.021A Medicine Of [facility] Pili I83.93 Office Visit 09/12/2016 10:00a [place] [address] E11.621 AT [facility] T25.321A L97.512 Office Visit 09/06/2016 2:13p [facility], Maegan Nathaniel, 18409 E11.42 Hospitalists Pili L03.115 T25.021A Office Visit 09/06/2016 7:00a [facility] Leandro De Santiago, 27120 T25.121D Of [facility] Pili X19.xxxD T25.121D L03.115 E11.40 X19.xxxD E11.40 Office Visit 05/28/2016 9:20a [facility] Lennox Babcock 32896 M31.30 Of Jerry Alejandre Z79.52 R53.1 R20.8 Office Visit 05/07/2016 11:00a [facility] Lennox Babcock 47034 M31.30 Of Jerry Alejandre Z79.52 R53.1 R20.8 Z79.4 E11.42 Office Visit 04/02/2016 10:30a [facility] JOSÉ Hackett 31502RFX Z95.0 I48.2 R06.02 Office Visit 03/02/2016 9:45a [facility] Of Gin Alvarado M.D. 41474 I48.2 Mainframe Systems Engineer Z95.0 I44.2 R06.02 M25.511 M31.30 Office Visit 07/22/2015 10:30a [facility] Of Gin Alvarado M.D. 78502 Z95.0 Mainframe Systems Engineer I48.2 R06.02 R61 G47.33 Office Visit 01/21/2015 11:00a [facility] Of Gin Alvarado M.D. 16683 780.4 Mainframe Systems Engineer V45.01 427.31 Office Visit 06/01/2014 11:15a [facility] Of Gin Alvarado M.D. 57022 427.31 Mainframe Systems Engineer V45.01 786.59 Office Visit 04/14/2014 9:00a [facility] Of Gin Alvarado M.D. 96725 427.31 Mainframe Systems Engineer V45.01 786.59 Office Visit 10/05/2013 8:45a [facility] Of Gin Alvarado M.D. 73601 427.31 Mainframe Systems Engineer V45.01 446.4 786.2 Office Visit 06/22/2013 10:15a [facility] Of Gin Alvarado M.D. 08061 427.31 Mainframe Systems Engineer V45.01 786.09 786.59 782.1 Office Visit 05/25/2013 11:00a [facility] Of Walter Farooq, 68011 250.60 [facility] Pili 719.47 713.5 Office Visit 05/05/2013 11:40a [facility] Ricardo Thompson M.D. 53255 446.4 Of Mainframe Systems Engineer 338.4 724.02 250.60 Office Visit 04/01/2013 2:00p [facility] Of JOS Reid 69658 446.4 Mainframe Systems Engineer 338.4 V58.69 354.0 250.60 453.6 Office Visit 01/01/2013 11:30a [facility] Lizette Prado M.D. 10094 250.60 Services Of Mainframe Systems Engineer 357.2 724.02 728.87 Office Visit 12/05/2012 2:20p [facility] Ricardo Thompson M.D. 49441 446.4 Of Mainframe Systems Engineer 338.4 Office Visit 12/02/2012 10:45a [facility] Of Gin Alvarado M.D. 06903 786.09 [facility] 786.59 787.02 401.9 Office Visit 10/02/2012 1:00p [facility] Kadie Prado M.D. 39913 250.60 Services Of [facility] 357.2 724.02 446.4 Office Visit 08/20/2012 9:00a [facility] Kadie Prado M.D. 52873 356.9 Services Of Mainframe Systems Engineer 724.02 Office Visit 08/06/2012 9:45a [facility] Of Gin Alvarado M.D. 70473 427.31 [facility] 786.09 Office Visit 06/27/2012 12:00p [facility] Of Gin Alvarado M.D. 80547 427.31 Mainframe Systems Engineer AT [facility] 786.05 Office Visit 08/10/2011 8:45a [facility] [place] 51987 354.0 Of Brayden Rolon M.D. Office Visit 04/16/2011 10:30a [facility] [place] 64064 354.0 Of Brayden Rolon M.D. Office Visit 04/02/2011 10:00a [facility] Ricardo Thompson M.D. 15142 446.4 Of [facility] 580.81 786.2 Office Visit 11/17/2010 10:00a [facility] Ricardo Thompson M.D. 22526 090.0 Of [facility] 583.9 V58.69 Office Visit 09/14/2009 12:15a [facility] Sol Fishman, 37537 427.31 Assoc, Hospitalists [facility] Office Visit 06/05/2009 2:15a [facility] Chelo Hernadez, 86528 530.81 [facility]oc, [facility] 786.50 790.99 427.31 Office Visit 06/04/2009 12:45a [facility] Lewis Nguyen, 29655 786.50 Assoc, Hospitalists [facility] Hospitalist 530.10 446.4 Plan of Care Future Appointment(s):05/28/2018 8:20 am - Lennox Yoko, M.D. at [facility] Of [facility]02/25/2018 - Lennox Babcock M.D.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New Medication:Prednisone 1 mgZ79.52 flat ironer (current ) use of systemic zcchzgeuQ21.42 Oth diabetes mellitus with diabetic polyneuropathyComments:I discussed with the patient that people with neuropathy do not always feel pain when there is a wound or injury on the foot. As a result , daily foot care is necessary to monitor for changes in the skin (such as cracks or wounds), which can increase the risk of infection. Also I advised: Avoid activities that can injure the feet Some activities increase the risk of foot injury and are not recommended, including walking barefoot, using a heating pad or hot water bottle on the feet, and stepping intothe bathtub before testing the temperature with the hand.Use care when trimming the nails Trim thetoe nails along the shape of the toe (rounded, not straight across) and file the nails to remove anysharp edges (figure 1). Never cut (or allow a manicurist to cut) the cuticles. Do not pop blisters, try to free ingrown toenails, or otherwise break the skin on the feet. See a healthcare provider or solar sales manager for even minor procedures.Wash and check the feet daily Use lukewarm water and mild soap to clean the feet. Gently pat feet dry and apply a moisturizing cream or lotion.Check the entire surface of both feet for skin breaks, blisters, swelling, or redness, including between and underneath the toes where damage may be hidden. Use a mirror or ask a family member or caregiver to help if it is difficult to see the entire foot. The patient expressed understanding.R53.1 WeaknessNew Therapy:Physical TherapyComments:I discussed with the patient that studies show that strong hip and quadriceps muscle reduce pain andimprove function. Specifically, I advised patient to sit up straight in a chair, and to slightly kick the left foot back a few inches underneath the chair, keeping toes on the floor for support. Lift the right foot off the floor, keeping the knee bent at a 90-degree angle. Hold your right leg in the air for five seconds, and then slowly lower it back to the ground. Repeat 10 times. Alternate to the left leg and repeat 10 times. 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
[2018-03-12] MEDS ORDERED: Clindamycin CAP* 150 MG PO ONE (03:23)
--- NOTE | 2018-03-12 03:25 | ED ---
Laceration/Wound HPI - HPI Summary HPI Summary: Complains of laceration to right great toe after stubbing it on carpet. History of DM with decreased sensation in bilateral feet. No anti-coag. Last tetanus shot one year ago. Bleeding controlled - History of Current Complaint Stated Complaint: BIG TOE LAC Time Seen by Provider: 03/12/18 01:00 Hx Obtained From: Patient Aggravating: Movement Current Severity: None Pain Intensity: 0 Pain Scale Used: 0-10 Numeric Associated Signs & Symptoms: Negative - Additional Pertinent History Primary Care Physician: [id number] - Allergy/Home Medications Allergies/Adverse Reactions: Allergies Allergy/AdvReac Type Severity Reaction Status Date / Time MS Albuterol [Albuterol] Allergy racing Verified 03/12/18 00:19 herat and lock jaw MS Codeine [Codeine] Allergy Nausea And Verified 03/12/18 00:19 Vomiting MS Hydrocodone [Hydrocodone] Allergy GI Upset Verified 03/12/18 00:19 MS Metformin [Metformin] Allergy Nausea Verified 03/12/18 00:19 MS Pregabalin [From Lyrica] Allergy Altered Verified 03/12/18 00:19 Mental Status MS Sulfa Antibiotics Allergy Nausea Verified 03/12/18 00:19 [Sulfa Antibiotics] MS Sulfamethoxazole Allergy Nausea Verified 03/12/18 00:19 w/Trimethoprim [From Bactrim] PMH/Surg Hx/FS Hx/Imm Hx Endocrine/Hematology History: Reports: Hx Anticoagulant Therapy, Hx Diabetes Cardiovascular History: Reports: Hx Angina, Hx Embolism, Hx Hypercholesterolemia , Hx Hypertension, Hx Pacemaker/ICD - put in 2010 Denies: Hx Coronary Artery Disease, Hx Myocardial Infarction, Hx Valvular Heart Disease Respiratory History: Reports: Other Respiratory Problems/Disorders - wegeners granulomatosis Denies: Hx Asthma, Hx Chronic Obstructive Pulmonary Disease (COPD) GI History: Reports: Hx Gall Bladder Disease, Hx Gastroesophageal Reflux Disease Musculoskeletal History: Reports: Hx Arthritis, Hx Back Problems Sensory History: Reports: Hx Contacts or Glasses Denies: Hx Cataracts, Hx Hearing Aid, Hx Hearing Problem, Other Sensory Impairments Opthamlomology History: Reports: Hx Contacts or Glasses Denies: Hx Cataracts, Other Sensory Impairments Psychiatric History: Reports: Hx Anxiety, Hx Depression - Cancer History Cancer Type, 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 - Surgical History Surgery Procedure, Year, and Place: CHOLECYSTECTOMY, JAMES, SCAR TISSUE REMOVAL - Immunization History Date of Influenza Vaccine: 07/04/2017 Infectious Disease History: No Infectious Disease History: Reports: Hx Shingles Denies: Hx Clostridium Difficile, Hx Hepatitis, Hx Human Immunodeficiency Virus (HIV), Hx of Known/Suspected MRSA, Hx Tuberculosis, Hx Known/Suspected VRE , Hx Known/Suspected VRSA, History Other Infectious Disease, Traveled Outside the [place] in Last 30 Days - Family History Known Family History: Positive: Diabetes - Social History Alcohol Use: None Hx Substance Use: No Substance Use Type: Reports: None Hx Tobacco Use: No Smoking Status (MU): Never Smoked Tobacco Have You Smoked in the Last Year: No Review of Systems Constitutional: Negative Eyes: Negative ENT: Negative Cardiovascular: Negative Respiratory: Negative Gastrointestinal: Negative Genitourinary: Negative Musculoskeletal: Other Skin: Negative Neurological: Negative Psychological: Normal All Other Systems Reviewed And Are Negative: Yes Physical Exam - Summary Physical Exam Summary: Laceration on dorsal surface at base of great right toe extending medially. Patient has history of DM related dysfunction and bilateral feet. States she cannot flex or extend at baseline on toes of right foot. Sensation intact distal to laceration. Triage Information Reviewed: Yes Vital Signs On Initial Exam: Initial Vitals Temp Pulse Resp BP Pulse Ox 98.4 F 66 20 125/74 96 03/12/18 00:10 03/12/18 00:03/12/18 00:03/12/18 00:03/12/18 00:10 Vital Signs Reviewed: Yes Appearance: Positive: Well-Appearing Skin: Positive: Warm Head/Face: Positive: Normal Head/Face Inspection Eyes: Positive: Normal Neck: Positive: Supple Respiratory/Lung Sounds: Positive: Clear to Auscultation Cardiovascular: Positive: Normal Abdomen Description: Positive: Nontender Musculoskeletal: Positive: Normal Neurological: Positive: Normal Psychiatric: Positive: Normal AVPU Assessment: Alert - [place] Coma Scale Best Eye Response: 4 - Spontaneous Best Motor Response: 6 - Obeys Commands Best Verbal Response: 5 - Oriented Coma Scale Total: 15 Procedures - Laceration/Wound Repair 1 Location: lower extremity Description: Linear Anesthesia: Digital, 1.0% Length, Depth and Shape: 5cm x 1cm Betadine Prep?: No - hibiclens Laceration/Wound Explored: clean Debridement: minimal Number of Sutures: 5 - 4.0 ethilon Layer Closure?: No Diagnostics - Vital Signs Vital Signs Temp Pulse Resp BP Pulse Ox 03/12/18 00:10 98.4 F 66 20 125/74 96 - Laboratory Lab Statement: Any lab studies that have been ordered have been reviewed, and results considered in the medical decision making process. Laceration Repair Course/Dx - Course Course Of Treatment: Complains of laceration to right great toe after stubbing it on carpet. History of DM with decreased sensation in bilateral feet. No anti-coag. Last tetanus shot one year ago. Bleeding controlled. Laceration on dorsal surface at base of great right toe extending medially. Patient has history of DM related dysfunction and bilateral feet. States she cannot flex or extend at baseline on toes of right foot. Sensation intact distal to laceration. 5 sutures widely spaced as laceration is over joint of the great toe. X-ray negative for fracture. Rx for clindamycin 300 MG by mouth 3 times a day 10 days. Follow-up with primary care. - Clinical Impression Provider Diagnoses: Laceration Discharge - Sign-Out/Discharge Documenting (check all that apply): Discharge/Admit/Transfer - Discharge Plan Condition: Stable Disposition: HOME Prescriptions: Clindamycin Cap(NF) [Clindamycin Cap 300 mg Cap(NF)] 300 mg PO TID 10 Days #30 cap Patient Education Materials: Care For Your Stitches (ED), Laceration (ED) Referrals: Long Calderón MD [Primary Care Provider] - Additional Instructions: Keep wound clean. Wash with warm running water and soap. Do not submerge underwater as in swimming. Keep toe protected when not washing. Sutures out in 10 days. Take antibiotics as directed. Follow-up with primary care. Return to the ED for any new or worsening symptoms - Billing Disposition and Condition Condition: STABLE Disposition: Home
[2018-03-12 04:20] VITALS: BP 108/68
--- NOTE | 2018-03-12 07:32 | RAD ---
INDICATION: Right great toe laceration COMPARISON: None TECHNIQUE: AP, lateral, and oblique views were obtained. FINDINGS: There is laceration about the great toe near the interphalangeal joint. There is no foreign body. There is underlying osteoarthritic change with a mild hallux valgus deformity. IMPRESSION: LACERATION. NO FRACTURE OR FOREIGN BODY.
== END 2018-03-12 03:36 | disposition home or self-care (01) ==
LOC: ED 00:10
DX: S91.111A Laceration without foreign body of right great toe without damage to nail, initial encounter (principal); E13.69 Other specified diabetes mellitus with other specified complication; R20.8 Other disturbances of skin sensation; W22.8XXA Striking against or struck by other objects, initial encounter; Y92.9 Unspecified place or not applicable; E78.00 Pure hypercholesterolemia, unspecified; Z79.01 Long term (current) use of anticoagulants; I10 Essential (primary) hypertension; Z95.810 Presence of automatic (implantable) cardiac defibrillator; K21.9 Gastro-esophageal reflux disease without esophagitis; M31.30 Wegener's granulomatosis without renal involvement
CPT/HCPCS: 12002; 99282

== ENCOUNTER 2018-03-16 12:29 | Emergency (ER) | payer MEDICARE, OTHER ==
[2018-03-16 13:19] LABS: ABS Basophils 0.1 10^3/ul (0-0.2); ABS Eosinophils 0.1 10^3/ul (0-0.6); ABS Lymphocytes 2.4 10^3/ul (1.0-4.8); ABS Monocytes 0.7 10^3/ul (0-0.8); ABS Neutrophils 4.3 10^3/ul (1.5-7.7); ABS Nucleated RBC 0 10^3/ul; Eosinophil % 1.3 % (0-6); Hematocrit 43 % (35-47); Hemoglobin 14.5 g/dl (12.0-16.0); Lymphocyte % 31.8 % (25-47); Mean Corpuscular HGB Conc 34 g/dl (31-36); Mean Corpuscular Hemoglobin 30 pg (27-31); Mean Corpuscular Volume 88 fL (80-97); Mean Platelet Volume 8.3 um3 (7.4-10.4); Nucleated Red Blood Cells % 0.1; Platelet Count 298 10^3/ul (150-450); Red Blood Count 4.85 10^6/ul (4.00-5.40); Red Cell Distribution Width 15 % (10.5-15); White Blood Count 7.6 10^3/ul (3.5-10.8)
[2018-03-16 13:33] LABS: EGFR Non-African American 70.4 (>60)
--- NOTE | 2018-03-16 13:49 | RAD ---
INDICATION: Right great toe infection. COMPARISON: Comparison is made with a prior study from March 12, 2018. TECHNIQUE: 3 views of the right great toe were obtained. FINDINGS: There is diffuse soft tissue swelling. There is an oblique fracture through the medial base of the distal phalanx which is nondisplaced. No erosive change or periosteal reaction is seen. There is mild osteoarthritic change in the metatarsophalangeal and interphalangeal joints. IMPRESSION: 1. NONDISPLACED FRACTURE AT THE BASE OF THE DISTAL PHALANX. 2. NO SPECIFIC EVIDENCE FOR OSTEOMYELITIS. IF THERE IS A HIGH CLINICAL INDEX OF SUSPICION FOR OSTEOMYELITIS RECOMMEND A THREE-PHASE BONE SCAN OR MRI OF THE FOOT WITHOUT CONTRAST.
[2018-03-16] MEDS ORDERED: Amoxicillin/Clavulanate TAB* 875 MG PO ONE (14:32)
[2018-03-16 14:55] VITALS: BP 117/74
--- NOTE | 2018-03-16 15:28 | ED ---
Lower Extremity - HPI Summary HPI Summary: Pt. is a 63 y.o female who presents to the ER for re-examination of right foot injury that occurred 4 days ago. Pt. struck her right great toe 4 days ago and sustained a laceration. She was seen in the ER that day and xray and sutures placed. She was placed on Clindamycin. Pt. states that she stopped clindamycin yesterday because it was upsetting her stomach. She presents to the ER today because toe has become red and more painful x 1 day. Denies fever/chills, vomiting. Is a diabetic. Symptoms are mild-moderate in severity. Walking and touching foot makes symptoms worse. Rest makes symptoms better. - History of Current Complaint Chief Complaint: EDExtremityLower Stated Complaint: RT TOE POSS INFECTION-SENT F/[facility] Time Seen by Provider: 03/16/18 12:49 Hx Obtained From: Patient, Family/Video Journalist Pain Intensity: 4 Pain Scale Used: 0-10 Numeric - Allergies/Home Medications Allergies/Adverse Reactions: Allergies Allergy/AdvReac Type Severity Reaction Status Date / Time MS Albuterol [Albuterol] Allergy racing Verified 03/12/18 00:19 herat and lock jaw MS Codeine [Codeine] Allergy Nausea And Verified 03/12/18 00:19 Vomiting MS Hydrocodone [Hydrocodone] Allergy GI Upset Verified 03/12/18 00:19 MS Metformin [Metformin] Allergy Nausea Verified 03/12/18 00:19 MS Pregabalin [From Lyrica] Allergy Altered Verified 03/12/18 00:19 Mental Status MS Sulfa Antibiotics Allergy Nausea Verified 03/12/18 00:19 [Sulfa Antibiotics] MS Sulfamethoxazole Allergy Nausea Verified 03/12/18 00:19 w/Trimethoprim [From Bactrim] PMH/Surg Hx/FS Hx/Imm Hx Previously Healthy: Yes Endocrine/Hematology History: Reports: Hx Anticoagulant Therapy, Hx Diabetes Cardiovascular History: Reports: Hx Angina, Hx Embolism, Hx Hypercholesterolemia , Hx Hypertension, Hx Pacemaker/ICD - put in 2010 Denies: Hx Coronary Artery Disease, Hx Myocardial Infarction, Hx Valvular Heart Disease Respiratory History: Reports: Other Respiratory Problems/Disorders - wegeners granulomatosis Denies: Hx Asthma, Hx Chronic Obstructive Pulmonary Disease (COPD) GI History: Reports: Hx Gall Bladder Disease, Hx Gastroesophageal Reflux Disease Musculoskeletal History: Reports: Hx Arthritis, Hx Back Problems Sensory History: Reports: Hx Contacts or Glasses Denies: Hx Cataracts, Hx Hearing Aid, Hx Hearing Problem, Other Sensory Impairments Opthamlomology History: Reports: Hx Contacts or Glasses Denies: Hx Cataracts, Other Sensory Impairments Psychiatric History: Reports: Hx Anxiety, Hx Depression - Cancer History Cancer Type, 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 - Surgical History Surgery Procedure, Year, and Place: CHOLECYSTECTOMY, JAMES, SCAR TISSUE REMOVAL - Immunization History Date of Influenza Vaccine: 07/04/2017 Infectious Disease History: No Infectious Disease History: Reports: Hx Shingles Denies: Hx Clostridium Difficile, Hx Hepatitis, Hx Human Immunodeficiency Virus (HIV), Hx of Known/Suspected MRSA, Hx Tuberculosis, Hx Known/Suspected VRE , Hx Known/Suspected VRSA, History Other Infectious Disease, Traveled Outside the [place] in Last 30 Days - Family History Known Family History: Positive: Diabetes - Social History Alcohol Use: None Hx Substance Use: No Substance Use Type: Reports: None Hx Tobacco Use: No Smoking Status (MU): Never Smoked Tobacco Have You Smoked in the Last Year: No Review of Systems Constitutional: Negative Negative: Fever, Chills Negative: Vomiting, Nausea Positive: Other - Redness and pain to right great toe All Other Systems Reviewed And Are Negative: Yes Physical Exam Triage Information Reviewed: Yes Vital Signs On Initial Exam: Initial Vitals Temp Pulse Resp BP Pulse Ox 97.5 F 82 17 121/71 99 03/16/18 12:32 03/16/18 12:32 03/16/18 12:32 03/16/18 12:32 03/16/18 12:32 Vital Signs Reviewed: Yes Appearance: Positive: Well-Appearing - Pt. lying in bed in NAD. Daughter present. Skin: Positive: Warm, Dry Head/Face: Positive: Normal Head/Face Inspection Eyes: Positive: Normal Neck: Positive: Supple Musculoskeletal: Positive: Other - Sutures noted to a healing laceration to the distal right great toe. No drainage from wound. Erythema and ecchymosis noted distally of the wound. Erythema does not extend to foot. No lymphangitis. Neurological: Positive: Normal, CN Intact II-III Psychiatric: Positive: Affect/Mood Appropriate Diagnostics - Vital Signs Vital Signs Temp Pulse Resp BP Pulse Ox 03/16/18 14:54 97.4 F 61 17 117/74 98 03/16/18 12:32 97.5 F 82 17 121/71 99 - Laboratory Lab Results: Lab Results 03/16/18 03/16/18 03/16/18 Range/Units 13:07 13:08 13:08 WBC 7.6 (3.5-10.8) 10^3/ul RBC 4.85 (4.00-5.40) 10^6/ul Hgb 14.5 (12.0-16.0) g/dl Hct 43 (35-47) % MCV 88 (80-97) fL MCH 30 (27-31) pg MCHC 34 (31-36) g/dl RDW 15 (10.5-15) % Plt Count 298 (150-450) 10^3/ul MPV 8.3 (7.4-10.4) um3 Neut % (Auto) 57.1 (38-83) % Lymph % (Auto) 31.8 (25-47) % Powell % (Auto) 8.9 H (0-7) % Eos % (Auto) 1.3 (0-6) % Baso % (Auto) 0.9 (0-2) % Absolute Neuts (auto) 4.3 (1.5-7.7) 10^3/ul Absolute Lymphs (auto) 2.4 (1.0-4.8) 10^3/ul Absolute Monos (auto) 0.7 (0-0.8) 10^3/ul Absolute Eos (auto) 0.1 (0-0.6) 10^3/ul Absolute Basos (auto) 0.1 (0-0.2) 10^3/ul Absolute Nucleated RBC 0 10^3/ul Nucleated RBC % 0.1 Sodium 138 (135-145) mmol/L Potassium 3.8 (3.5-5.0) mmol/L Chloride 100 L (101-111) mmol/L Carbon Dioxide 28 (22-32) mmol/L Anion Gap 10 (2-11) mmol/L BUN 18 (6-24) mg/dL Creatinine 0.82 (0.51-0.95) mg/dL Est GFR ( Amer) 85.2 (>60) Est GFR (Non-Af Amer) 70.4 (>60) BUN/Creatinine Ratio 22.0 H (8-20) Glucose 203 H (70-100) mg/dL Lactic Acid 1.8 (0.5-2.0) mmol/L Calcium 9.6 (8.6-10.3) mg/dL Result Diagrams: 03/16/18 13:08 03/16/18 13:07 Lab Statement: Any lab studies that have been ordered have been reviewed, and results considered in the medical decision making process. Lower Extremity Course/Dx - Course Course Of Treatment: Pt. presenting for redness and increased pain to sutured wound and toe. She is afebrile. Redness is fairily minimal and is localized to the distal toe. No purulent drainage from sutured wound. Labs were ordered in triage and are unremarkable other than elevate glucose. Repeat foot xray today shows a nondisplaced fracture at the base of the distal first phalanx. Case discussed with Dr. Hobbs who recommends leaving sutures in place and switching antix to augmentiin. Results and plan discussed with pt. and daughter. Post op shoe placed for comfort. Advised to d/c clindamycin. To elevate and ice intermittently. Continue wound care and suture removal as directed. To call her boat tester tomorrow for a close f.u apt. Pt. will return to ER for fever, increased pain, redness, swelling, N/V, or if concerned. Pt. and daughter understand and agree with plan. - Diagnoses Differential Diagnosis/HQI/PQRI: Positive: Cellulitis, Contusion, Fracture ( Closed), Sprain Provider Diagnoses: Toe fracture, Cellulitis Discharge - Sign-Out/Discharge Documenting (check all that apply): Discharge/Admit/Transfer - Discharge Plan Condition: Good Disposition: HOME Prescriptions: Amoxicillin/Clavulanate TAB* [Augmentin TAB 875*] 875 mg PO BID #20 tab Patient Education Materials: Toe Fracture (ED), Cellulitis (ED) Referrals: Long Calderón MD [Primary Care Provider] - Maximo Patel DPM [Doctor of Podiatric Medicine] - Additional Instructions: Call your boat tester tomorrow to schedule a close follow up appointment Suture removal as directed Stop Clindamycin Take Augmentin as directed Elevate and ice foot Tylenol for pain as directed Return to ER for increased redness, swelling, pain, fever, or if concerned - Billing Disposition and Condition Condition: GOOD Disposition: Home
== END 2018-03-16 14:54 | disposition home or self-care (01) ==
LOC: ED 12:29
DX: S92.401D Displaced unspecified fracture of right great toe, subsequent encounter for fracture with routine healing (principal); W22.8XXD Striking against or struck by other objects, subsequent encounter; Z79.01 Long term (current) use of anticoagulants; E11.9 Type 2 diabetes mellitus without complications; I10 Essential (primary) hypertension; Z87.19 Personal history of other diseases of the digestive system
CPT/HCPCS: 36415; 80048; 83605; 85025; 87040; 99281; A9270-GY

== ENCOUNTER 2018-05-27 18:01 | Emergency (ER) | payer MEDICARE, OTHER ==
[2018-05-27] MEDS ORDERED: Tetan/Diph/Pertus SYR(Tdap)* 0.5 ML SYR(BOOSTRIX) use SYR IM ONE (18:55)
[2018-05-27] MEDS ORDERED: ceFAZolin 1 GM in Dextrose (*) 1 GM/50 ML BAG IVPB ONE (18:55)
[2018-05-27] MEDS ORDERED: Lidocaine 1%* 5 ML VIAL INJ ONE (18:55)
--- NOTE | 2018-05-27 19:13 | ED ---
Lower Extremity - HPI Summary HPI Summary: 63-year-old female presents with left toe laceration today. She states that she stubbed her toe earlier today in the afternoon. She admits to her neuropathy so she did feel it. She states that this happened on the other foot couple weeks ago. She has been blind the wound clinic for the other foot is infected. She does not currently on antibiotics. She does not know when her last tetanus was. He states the area continues to bleed. She has no pain. States she had an [facility] which showed that she had fractured to the area so she was sent here. She is diabetic. - History of Current Complaint Chief Complaint: EDExtremityLower Stated Complaint: LT BIG TOE INJURY Time Seen by Provider: 05/27/18 18:43 Pain Intensity: 0 - Allergies/Home Medications Allergies/Adverse Reactions: Allergies Allergy/AdvReac Type Severity Reaction Status Date / Time MS Albuterol [Albuterol] Allergy racing Verified 03/12/18 00:19 herat and lock jaw MS Codeine [Codeine] Allergy Nausea And Verified 03/12/18 00:19 Vomiting MS Hydrocodone [Hydrocodone] Allergy GI Upset Verified 03/12/18 00:19 MS Metformin [Metformin] Allergy Nausea Verified 03/12/18 00:19 MS Pregabalin [From Lyrica] Allergy Altered Verified 03/12/18 00:19 Mental Status MS Sulfa Antibiotics Allergy Nausea Verified 03/12/18 00:19 [Sulfa Antibiotics] MS Sulfamethoxazole Allergy Nausea Verified 03/12/18 00:19 w/Trimethoprim [From Bactrim] PMH/Surg Hx/FS Hx/Imm Hx Endocrine/Hematology History: Reports: Hx Anticoagulant Therapy, Hx Diabetes Cardiovascular History: Reports: Hx Angina, Hx Embolism, Hx Hypercholesterolemia , Hx Hypertension, Hx Pacemaker/ICD - put in 2010 Denies: Hx Coronary Artery Disease, Hx Myocardial Infarction, Hx Valvular Heart Disease Respiratory History: Reports: Other Respiratory Problems/Disorders - wegeners granulomatosis Denies: Hx Asthma, Hx Chronic Obstructive Pulmonary Disease (COPD) GI History: Reports: Hx Gall Bladder Disease, Hx Gastroesophageal Reflux Disease Musculoskeletal History: Reports: Hx Arthritis, Hx Back Problems Sensory History: Reports: Hx Contacts or Glasses Denies: Hx Cataracts, Hx Hearing Aid, Hx Hearing Problem, Other Sensory Impairments Opthamlomology History: Reports: Hx Contacts or Glasses Denies: Hx Cataracts, Other Sensory Impairments Psychiatric History: Reports: Hx Anxiety, Hx Depression - Cancer History Cancer Type, 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 - Surgical History Surgery Procedure, Year, and Place: CHOLECYSTECTOMY, JAMES, SCAR TISSUE REMOVAL - Immunization History Date of Influenza Vaccine: 07/04/2017 Infectious Disease History: No Infectious Disease History: Reports: Hx Shingles Denies: Hx Clostridium Difficile, Hx Hepatitis, Hx Human Immunodeficiency Virus (HIV), Hx of Known/Suspected MRSA, Hx Tuberculosis, Hx Known/Suspected VRE , Hx Known/Suspected VRSA, History Other Infectious Disease, Traveled Outside the [place] in Last 30 Days - Family History Known Family History: Positive: Diabetes - Social History Alcohol Use: None Hx Substance Use: No Substance Use Type: Reports: None Hx Tobacco Use: No Smoking Status (MU): Never Smoked Tobacco Have You Smoked in the Last Year: No Review of Systems Negative: Fever Negative: Chest Pain Negative: Shortness Of Breath Positive: Other - laceration left great toe All Other Systems Reviewed And Are Negative: Yes Physical Exam Triage Information Reviewed: Yes Vital Signs On Initial Exam: Initial Vitals Temp Pulse Resp BP Pulse Ox 97.8 F 69 18 119/66 100 05/27/18 18:11 05/27/18 18:11 05/27/18 18:11 05/27/18 18:11 05/27/18 18:11 Vital Signs Reviewed: Yes Appearance: Positive: Well-Appearing Skin: Positive: Warm, Dry, Other - 3cm by 1/2cm laceration of left great toe through nailbed Head/Face: Positive: Normal Head/Face Inspection Eyes: Positive: Normal, Conjunctiva Clear ENT: Positive: Pharynx normal Respiratory/Lung Sounds: Positive: Clear to Auscultation, Breath Sounds Present Cardiovascular: Positive: Normal, RRR Musculoskeletal: Positive: Limited @ - distal phalanx left thumb, Other - no sensation at baseline, good pulses Neurological: Positive: Normal Psychiatric: Positive: Normal Procedures - Laceration/Wound Repair 1 Location: Other - left great toe Description: Linear Anesthesia: Digital, 1.0% Length, Depth and Shape: 3cm by 1/4cm Irrigated w/ Saline (ccs): 500 Laceration/Wound Explored: no foreign body removed Closure: Single Layer Suture Type: Prolene, Chromic Number of Sutures: 8 - 3 absorable in nailbed, 5 nonabsorable Layer Closure?: No Sterile Dressing Applied?: Yes - telfa, coband, post op shoe Diagnostics - Vital Signs Vital Signs Temp Pulse Resp BP Pulse Ox 05/27/18 18:11 97.8 F 69 18 119/66 100 - Laboratory Lab Statement: Any lab studies that have been ordered have been reviewed, and results considered in the medical decision making process. - Radiology toe Xray Interpretation: Positive (See Comments) - distal phalanx fracture Radiology Interpretation Completed By: ED Physician Lower Extremity Course/Dx - Course Course Of Treatment: 63-year-old female presents with left toe laceration today. She states that she stubbed her toe earlier today in the afternoon. She admits to her neuropathy so she did feel it. She states that this happened on the other foot couple weeks ago. She has been blind the wound clinic for the other foot is infected. She does not currently on antibiotics. She does not know when her last tetanus was. He states the area continues to bleed. She has no pain. States she had an [facility] which showed that she had fractured to the area so she was sent here. She is diabetic. On exam has a 3 cm laceration below Nalbandian left great toe. Capillary refill less than 2 seconds no sensation in baseline. X-ray shows a pressure of the distal phalanx. Cleaned extensively and a dose of Ancef. placed 8 sutures with three absorbable in the nailbed. Gave postop shoe to keep on aera. Told to Follow- Up with Podiatry or Orthopedic. To Follow-Up with the wound Clinic about the Laceration. patient Patient on Keflex. Patient Understands Agrees with Plan. - Diagnoses Differential Diagnosis/HQI/PQRI: Positive: Contusion, Fracture (Open), Other - laceration Provider Diagnoses: Laceration of left great toe, Open fracture of distal phalanx Discharge - Sign-Out/Discharge Documenting (check all that apply): Patient Departure - Discharge Plan Condition: Good Disposition: HOME Prescriptions: Cephalexin CAP* [Keflex CAP*] 500 mg PO TID #29 cap Patient Education Materials: Care For Your Stitches (ED), Toe Fracture (ED) Referrals: Long Calderón MD [Primary Care Provider] - Walter Doll MD [Medical Doctor] - Additional Instructions: Keep area in shoe, change dressing once a day Keep area clean and dry for 24 hours Take Tylenol or ibuprofen for pain every 6 hours Return to ED or primary for suture removal in 10 days Follow up with ortho or podiatry take keflex three times a day for 10 days Return to ED if develop signs of infection such as fever, spreading redness, or pus formation - Billing Disposition and Condition Condition: GOOD Disposition: Home
[2018-05-27 20:45] VITALS: BP 103/59
--- NOTE | 2018-05-28 07:36 | RAD ---
INDICATION: Left great toe injury TECHNIQUE: 3 views of the left great toe were obtained. FINDINGS: There is a horizontally oriented fracture at the proximal pole of the left great toe distal phalanx. The patient appears to be status post amputation of most of the left second toe. Remaining visualized bones are otherwise intact and appropriately aligned. Incidentally noted is coarse atherosclerotic calcification of the arteries overlying the medial forefoot. IMPRESSION: 1. Nondisplaced horizontally oriented fracture of the proximal metaphysis of the left great toe distal phalanx. 2. Incidentally noted is calcified vasculopathy of the left foot. Please correlate to signs or symptoms of lower extremity arterial insufficiency. R0
== END 2018-05-27 20:44 | disposition home or self-care (01) ==
LOC: ED 18:01
DX: S92.912B Unspecified fracture of left toe(s), initial encounter for open fracture (principal); S01.512A Laceration without foreign body of oral cavity, initial encounter; W22.8XXA Striking against or struck by other objects, initial encounter; Y92.9 Unspecified place or not applicable; E11.9 Type 2 diabetes mellitus without complications; Z79.01 Long term (current) use of anticoagulants
CPT/HCPCS: 90715; 99282; J0690

== ENCOUNTER 2018-10-17 18:11 | Emergency (ER) | payer MEDICARE, OTHER ==
--- NOTE | 2018-10-17 20:33 | ED ---
Lower Extremity - HPI Summary HPI Summary: This patient is a 63 year old female presenting to [facility] accompanied by daughter with a chief complaint of toe injury since 2 hours ago. Patient states that she stubbed her left big toe and broke it. In the ED, patient's left first toe presents with a wide laceration. Patient states that she is a diabetic and has neuropathy, which is why she cannot feel anything on her left foot. The pain is rated 0/10 in severity. Symptoms aggravated by nothing. Symptoms alleviated by nothing. Patient denies any other medical complaints at this time. - History of Current Complaint Chief Complaint: EDExtremityLower Stated Complaint: LEFT FOOT INJURY Time Seen by Provider: 10/17/18 20:26 Hx Obtained From: Patient Mechanism Of Injury: Blunt Trauma Onset/Duration: Still Present Severity Currently: Moderate Pain Intensity: 0 Pain Scale Used: 0-10 Numeric Timing: Constant Location: Is Discrete @ - left first toe Associated Signs And Symptoms: Negative: Fever Aggravating Factor(s): Nothing Alleviating Factor(s): Nothing - Allergies/Home Medications Allergies/Adverse Reactions: Allergies Allergy/AdvReac Type Severity Reaction Status Date / Time albuterol Allergy See Comment Verified 10/17/18 20:41 codeine Allergy GI Upset Verified 10/17/18 20:41 hydrocodone Allergy GI Upset Verified 10/17/18 20:41 metformin Allergy Nausea Verified 10/17/18 20:41 pregabalin [From Lyrica] Allergy Altered Verified 10/17/18 20:41 Mental Status Sulfa (Sulfonamide Allergy Nausea Verified 10/17/18 20:41 Antibiotics) sulfamethoxazole Allergy Nausea Verified 10/17/18 20:41 [From Bactrim] trimethoprim [From Bactrim] Allergy Nausea Verified 10/17/18 20:41 Home Medications: Home Medications Insulin NPH Hum/Reg Insulin Hm [Humulin 70/30 Kwikpen] 30 units SUBCUT DAILY 04/27 [History Confirmed 10/17/18] Victoza 3-Rodolfo 1.8 units SUBCUT DAILY 10/17/18 [History Confirmed 10/17/18] PMH/Surg Hx/FS Hx/Imm Hx Previously Healthy: No Endocrine/Hematology History: Reports: Hx Anticoagulant Therapy, Hx Diabetes Cardiovascular History: Reports: Hx Angina, Hx Embolism, Hx Hypercholesterolemia , Hx Hypertension, Hx Pacemaker/ICD - put in 2010 Denies: Hx Coronary Artery Disease, Hx Myocardial Infarction, Hx Valvular Heart Disease Respiratory History: Reports: Other Respiratory Problems/Disorders - wegeners granulomatosis Denies: Hx Asthma, Hx Chronic Obstructive Pulmonary Disease (COPD) GI History: Reports: Hx Gall Bladder Disease, Hx Gastroesophageal Reflux Disease Musculoskeletal History: Reports: Hx Arthritis, Hx Back Problems Sensory History: Reports: Hx Contacts or Glasses Denies: Hx Cataracts, Hx Hearing Aid, Hx Hearing Problem, Other Sensory Impairments Opthamlomology History: Reports: Hx Contacts or Glasses Denies: Hx Cataracts, Other Sensory Impairments Psychiatric History: Reports: Hx Anxiety, Hx Depression - Cancer History Cancer Type, 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 - Surgical History Surgery Procedure, Year, and Place: CHOLECYSTECTOMY, JAMES, SCAR TISSUE REMOVAL - Immunization History Date of Influenza Vaccine: 07/04/2017 Infectious Disease History: No Infectious Disease History: Reports: Hx Shingles Denies: Hx Clostridium Difficile, Hx Hepatitis, Hx Human Immunodeficiency Virus (HIV), Hx of Known/Suspected MRSA, Hx Tuberculosis, Hx Known/Suspected VRE , Hx Known/Suspected VRSA, History Other Infectious Disease, Traveled Outside the [place] in Last 30 Days - Family History Known Family History: Positive: Diabetes - Social History Occupation: Retired Alcohol Use: None Hx Substance Use: No Substance Use Type: Reports: None Hx Tobacco Use: No Smoking Status (MU): Never Smoked Tobacco Have You Smoked in the Last Year: No Review of Systems Negative: Fever Positive: Other - laceration to left first toe, Neurological: Other - neuropathy All Other Systems Reviewed And Are Negative: Yes Physical Exam - Summary Physical Exam Summary: VITAL SIGNS: Reviewed. GENERAL: Patient is a well-developed and nourished female who is lying comfortable in the stretcher. Patient is not in any acute respiratory distress. HEAD AND FACE: No signs of trauma. No ecchymosis, hematomas or skull depressions. No sinus tenderness. EYES: PERRLA, EOMI x 2, No injected conjunctiva, no nystagmus. EARS: Hearing grossly intact. Ear canals and tympanic membranes are within normal limits. MOUTH: Oropharynx within normal limits. NECK: Supple, trachea is midline, no adenopathy, no JVD, no carotid bruit, no c- spine tenderness, neck with full ROM. CHEST: Symmetric, no tenderness at palpation LUNGS: Clear to auscultation bilaterally. No wheezing or crackles. CVS: Regular rate and rhythm, S1 and S2 present, no murmurs or gallops appreciated. ABDOMEN: Soft, non-tender. No signs of distention. No rebound no guarding, and no masses palpated. Bowel sounds are normal. EXTREMITIES: 3cm laceration transversal over the distal left first toe just proximal to the nail fold. Left 2nd toe amputated NEURO: Alert and oriented x 3. Speech is normal and follows commands. Anesthesia of the left foot due to hx of neuropathy SKIN: Dry and warm Triage Information Reviewed: Yes Vital Signs On Initial Exam: Initial Vitals Temp Pulse Resp BP Pulse Ox 97.8 F 63 18 132/83 96 10/17/18 18:22 10/17/18 18:22 10/17/18 18:22 10/17/18 18:22 10/17/18 18:22 Vital Signs Reviewed: Yes Procedures - Splinting Left Lower Extremity Location: Left 1st toe Splint: volar - Laceration/Wound Repair 1 Location: lower extremity - left 1st toe Description: Linear Length, Depth and Shape: 3cm laceration transversal over the distal left first toe just proximal to the nail fold Betadine Prep?: No Irrigated w/ Saline (ccs): 200 Laceration/Wound Explored: clean Closure: Single Layer Suture Type: Prolene Number of Sutures: 6 Sterile Dressing Applied?: Yes Diagnostics - Vital Signs Vital Signs Temp Pulse Resp BP Pulse Ox 10/17/18 18:22 97.8 F 63 18 132/83 96 - Laboratory Lab Statement: Any lab studies that have been ordered have been reviewed, and results considered in the medical decision making process. - Radiology Foot XR Radiology Interpretation Completed By: ED Physician Summary of Radiographic Findings: Foot XR reveals Nondisplaced fracture of the proximal first distal phalanx. Lower Extremity Course/Dx - Course Course Of Treatment: This patient is a 63 year old female presenting to [facility] accompanied by daughter with a chief complaint of toe injury since 2 hours ago. Patient states that she stubbed her left big toe and broke it. Foot XR reveals Nondisplaced fracture of the proximal first distal phalanx. Laceration repaired. Volar splint was applied. We were not able to do body taping because she had her second toe amputated. In the ED course the patient was given Keflex. The pt is hemodynamically stable, alert and oriented x3. Patient will be discharged with a dx of open fracture of the first toe, laceration of the first toe, neuropathy. Patient is advised to follow up with Orthopedist and Wound Care on Saturday. The patient is agreeable with this plan. - Diagnoses Provider Diagnoses: Open fracture of toe, Laceration of toe of left foot, Neuropathy Discharge - Sign-Out/Discharge Documenting (check all that apply): Patient Departure Patient Received Moderate/Deep Sedation with Procedure: No - Discharge Plan Condition: Stable Disposition: HOME Patient Education Materials: Toe Fracture (ED) Referrals: Long Calderón MD [Primary Care Provider] - 2 Days Zain Hewitt MD [Medical Doctor] - 10/20/18 Additional Instructions: Return to the ED after any new or worsening symptoms. - Attestation Statements Document Initiated by Renuibe: Yes Documenting Scribe: Joana Kohli Provider For Whom Scribe is Documenting (Include Credential): Albin Herrera MD Scribe Attestation: Joana Durham scribed for Albin Herrera MD on 10/17/18 at 2212. Status of Scribe Document: Ready
[2018-10-17] MEDS ORDERED: Cephalexin CAP* 500 MG PO ONE (20:41)
[2018-10-17 21:37] VITALS: BP 118/67
== END 2018-10-17 23:10 | disposition home or self-care (01) ==
LOC: ED 18:11
DX: S92.402B Displaced unspecified fracture of left great toe, initial encounter for open fracture (principal); W22.8XXA Striking against or struck by other objects, initial encounter; Y92.9 Unspecified place or not applicable; Z88.2 Allergy status to sulfonamides; Z79.01 Long term (current) use of anticoagulants; I10 Essential (primary) hypertension; E11.9 Type 2 diabetes mellitus without complications; Z95.0 Presence of cardiac pacemaker
CPT/HCPCS: 12002; 99282; A9270-GY

== ENCOUNTER 2018-11-27 14:31 | Emergency (ER) | payer MEDICARE, OTHER ==
--- OUTSIDE RECORDS SUMMARY | 2018-11-27 14:51 | XMS REPORT | Continuity of Care Document ---
:1955 External Reference #:[id number] Author Name Fransisca Coto Care Team Providers Name Role Phone Long Calderón MD Primary Care Physician Unavailable Payers Date Identification Numbers Payment Provider Subscriber Policy Number: [id number] Medicare Ayanna Mohamud PayID: [id number] [address] [place] [address] Effective: 1997 Policy Number: [id number] Medicare Ayanna Mohamud Expires: 2018 PayID: [id number] [address] [place] [address] Policy Number: [id number] [facility] Ayanna Marquezn Group Number: [id number] [address] PayID: [id number] MYA Hodge [id number] Effective: 2008 Policy Number: [id number] [facility] Bari Mohamud Expires: 2015 Group Number: [id number] [address] PayID: [id number] MYA Hodge [id number] Advance Directives Description No Information Available Problems Date Description Provider Status Onset: 12/05/2012 Granulomatosis with polyangiitis Ricardo Thompson M.D. Active Onset: 12/05/2012 Chronic pain syndrome Ricardo Thompson M.D. Active Onset: 05/05/2013 Spinal stenosis of lumbar region Ricardo Thompson M.D. Active Onset: 05/05/2013 Nervous system disorder due to Ricardo Thompson M.D. Active diabetes mellitus Onset: [...] of lower extremity Charles Bosch M.D. Active Onset: 06/02/2018 Open fracture of phalanx of foot Jemal Condon MD Active Family History Date Family Member(s) Observation Comments General Coronary Artery Disease (CAD) Brother 45 yo [place], Mother hx CAD, DM General No Current Problems Social History Type Date Description Comments Sex Unknown Marital Status Lives With Alone Occupation Disabled Tobacco Use Start: Unknown Never Smoked Cigarettes Smoking Status Reviewed: 11/04/18 Never Smoked Cigarettes ETOH Use Denies alcohol use Tobacco Use Start: Unknown Patient has never smoked Recreational Drug Use Denies Drug Use Exercise Type/Frequency Exercises regularly weights with upper body and leg exercises in chair every other day. walking in mobile home durieng bad weather. Allergies, Adverse Reactions, Alerts Date Description Reaction Status Severity Comments 04/02/2011 Bactrim Active 04/02/2011 Codeine Active 04/02/2011 Albuterol Active 04/02/2011 Hydrocodone Active 06/19/2013 Sulfa Antibiotics Active 06/19/2013 Metformin Diarrhea Active 07/22/2015 Lyrica "spacey" Active per patient Medications Medication Date Status Form Strength Qnty SIG Indications Ordering Provider Prednisone 02/25 Active Tablets 1mg 1000t take 5 mg M31.30 /2017 abs daily or Yoko, as M.D. directed Compression 02/25 Active Misc 2unit please use Lennox Stockings /2017 s daily as Yoko, needed for M.D. leg/foot swelling Compression 05/07 Active Misc 2unit please use M31.30 Lennox Stockings /2015 s daily as Yoko, needed for M.D. edema/ venous stasis changes Lisinopril 04/13 Active Tablets 5mg 30tab 1 po q bid antonio Alvarado M.D. Furosemide 11/17 Active Tablets 40 1 daily ( taken Pili Thompson along with Potassium) Atenolol Active Tablets 25mg 180ta 1 tab by Gin bs mouth [place], twice a M.D. day Buspirone HCL Active Tablets 10mg 60tab 2 tabs po Unknown s hs Warfarin Sodium Active Tablets 4mg 1 tablet Shallish, alternate LnogMD emeli days 09/10 tablet as directed Klor-Con M20 Active Tablets ER 20Meq 30tab 1 tablet s po daily Gabapentin Active Capsules 300mg 1 cap po [place], daily Geno M., N.P. Humalog Active Solution 100Unit/M before [place], L meals on Geno sliding M., N.P. scale Invokana Active Tablets 300mg 1 by mouth Unknown every day Tylenol Active Tablets 325mg take 1-2 as needed every 4 hours Victoza Active Solution 18mg/3ML inject 1.2 Pen-Inject mg daily in the morning Keflex 10/27 Hx Capsules 500mg 28cap 1 by mouth S92.422D s 4 times a Roseanna, - day for 7 Cephalexin 07/21 Hx Tablets 250mg 30tab 1 tab S92.412B s every six Roseanna, - hours 07/31 Keflex 06/05 Hx Capsules 500mg 20cap 1 tab by Jemal s mouth four Roseanna, - times a Methotrexate 12/25 Hx Tablets 2.5mg 14tab take 3 M310.08 s capsules/t Yoko, - ablets by Pili 02/25 mouth weekly Folic Acid 12/25 Hx Tablets 1mg 90tab take one M31.30 s capsule/ta Yoko, - blet daily M.D. 04/17 by mouth Prednisone 10/11 Hx Tablets 5mg 1 by mouth M31.30 every day Lexx Babcock M.D. 02/25 [id number] 05/28 Hx Chewtabs 1mg 90uni take one R20.8 ts capsule/ta Yoko, - blet daily M.D. 08/11 sublingual ly Prednisone 05/28 Hx Tablets 1mg 180ta take 5 mg M31.30 bs daily Lexx Babcock M.D. 10/11 Losartan 10/05 Hx Tablets 25mg 90tab 1 po qd 786.2 Gin Lexx Crook M.D. 04/13 Neurontin 05/25 Hx Capsules 300mg 60cap 1 po bid Lexx Lui M.D. 10/04 Lisinopril 07/01 Hx Tablets 5mg 30tab 1 po qd 786.2 Gin Lexx Crook M.D. 10/05 Carvedilol 06/18 Hx Tablets 12.5mg 60tab 1 po bid Lexx Crook M.D. 12/05 Prednisone 04/02 Hx Tablets 1mg 120ta 5 po qd renato Thompson M.D. - 07/21 Prednisone 11/17 Hx Tablets 5mg 30tab 1 by mouth s every day Pili Thompson - 04/02 Atenolol 11/17 Hx Tablets 25mg 1 three times a Pili Thompson - day 04/02 Premarin 11/17 Hx Tablets 0.9mg 1 every day(liza Thompson M.D. - t no 04/01 longer on Lisinopril 11/17 Hx Tablets 2.5mg 180ta every day renato Thompson M.D. - 04/01 Omeprazole 11/[address] 20mg bid ( Stop taking per Pili Thompson - patient ) 04/01 Klor-Con M20 11/17 Hx Tablets ER 20Meq every day Pili Thompson - 07/21 Metoclopramide 11/17 Hx Tablets 10mg 1/2 prn Ricardo Pili Thompson - 12/05 Warfarin Sodium 11/17 Hx Tablets 4mg Pili Thompson - 01/20 Humulin N 11/17 Hx Suspension 100Unit/M L Pili Thompson - 01/21 Magnesium Oxide 11/17 Hx Tablets 400mg Ricardo 400 Pili Thompson - 04/01 Cyclobenzaprine 11/17 Hx Tablets 5mg 60tab 1 p.o bid Ricardo s Pili Thompson - 06/22 Metformin HCL Hx Tablets 500mg [...] per day ( 07/[address]Christi steffen Rodriguez,[facility])(no longer taking) Prednisone Hx Tablets 5mg 1 tablet M31.30 Shallish, /0000 po daily MD Long - Am 05/28 Novolin N Hx Suspension 100Unit/M 38 in am, Unknown [...] /0000 times a - day as 07/10 Immunizations Description No Information Available Vital Signs Date Vital Result Comment 11/04/2018 12:56pm Height 67 inches 5'7" Weight 210.00 lb BP Systolic 122 mmHg BP Diastolic 70 mmHg Respiratory Rate 20 /min Body Temperature 97.5 F Pain Level 0 BMI (Body Mass Index) 32.9 kg/m2 10/27/2018 11:31am Height 67 inches 5'7" Weight 210.00 lb BP Systolic 114 mmHg BP Diastolic 68 mmHg Body Temperature 97.7 F BMI (Body Mass Index) 32.9 kg/m2 10/20/2018 1:20pm Height 67.5 inches 5'7.50" Weight 210.00 lb Heart Rate 86 /min BP Systolic Sitting 128 mmHg BP Diastolic Sitting 84 mmHg BMI (Body Mass Index) 32.4 kg/m2 07/21/2018 11:00am Height 67.5 inches 5'7.50" Weight 212.00 lb BP Systolic 124 mmHg BP Diastolic 76 mmHg Respiratory Rate 18 /min Pain Level 0 BMI (Body Mass Index) 32.7 kg/m2 07/18/2018 10:27am Height 67.50 inches 5'7.50" Weight 214.00 lb Heart Rate 74 /min BP Systolic Sitting 112 mmHg Lue reg cuff BP Diastolic Sitting 74 mmHg Lue reg cuff BP Systolic Standing 118 mmHg Lue BP Diastolic Standing 74 mmHg Lue Respiratory Rate 16 /min BMI (Body Mass Index) 33.0 kg/m2 Ejection Fraction 55-60% as of 07/08/17 echo 06/16/2018 1:13pm Height 67.50 inches 5'7.50" Weight 212.00 lb Heart Rate 90 /min BP Systolic 128 mmHg BP Diastolic 64 mmHg Respiratory Rate 18 /min Body Temperature 97.7 F Pain Level 0 BMI (Body Mass Index) 32.7 kg/m2 06/09/2018 12:55pm Height 67.50 inches 5'7.50" Weight 217.00 lb Heart Rate 76 /min Respiratory Rate 16 /min Body Temperature 96.5 F Pain Level 0 BMI (Body Mass Index) 33.5 kg/m2 06/04/2018 1:06pm Heart Rate 80 /min Respiratory Rate 12 /min Body Temperature 97.5 F Pain Level 2 06/02/2018 1:16pm Height 67.50 inches 5'7.50" Weight 217.00 lb Heart Rate 60 /min Respiratory Rate 16 /min Body Temperature 95.8 F Pain Level 0 BMI (Body Mass Index) 33.5 kg/m2 02/25/2018 8:50am Height 67.50 inches 5'7.50" Weight 227.00 lb Heart Rate 82 /min BP Systolic 122 mmHg BP Diastolic 82 mmHg Pain Level 0 O2 % BldC Oximetry 97 % BMI (Body Mass Index) 35.0 kg/m2 12/25/2017 4:54pm Height 67.50 inches 5'7.50" Weight 239.00 lb Heart Rate 68 /min BP Systolic Sitting 122 mmHg BP Diastolic Sitting 84 mmHg Respiratory Rate 14 /min Pain Level 0 BMI (Body Mass Index) 36.9 kg/m2 12/02/2017 3:34pm Height 67.50 inches 5'7.50" Weight 244.00 lb Heart Rate 71 /min full minute apical BP Systolic Sitting 105 mmHg BP Diastolic Sitting 73 mmHg Respiratory Rate 16 /min Pain Level 3 O2 % BldC Oximetry 99 % ra BMI (Body Mass Index) 37.6 kg/m2 10/11/2017 11:13am Height 67.50 inches 5'7.50" Weight 242.00 lb w/ shoes Heart Rate 58 /min hard to palpate, unable to ausculatate at chest. BP Systolic Sitting 104 mmHg lue large cuff BP Diastolic Sitting 68 mmHg lue large cuff Respiratory Rate 22 /min BMI (Body Mass Index) 37.3 kg/m2 Ejection Fraction 55-60% echo 07/08/17 07/23/2017 1:11pm Height 67.50 inches 5'7.50" Weight 233.50 lb with shoes Heart Rate 64 /min BP Systolic Sitting 112 mmHg Rue reg cuff BP Diastolic Sitting 76 mmHg Rue reg cuff BP Systolic Standing 114 mmHg Rue reg cuff BP Diastolic Standing 68 mmHg Rue reg cuff Respiratory Rate 18 /min BMI (Body Mass Index) 36.0 kg/m2 Ejection Fraction 55-60% 07/08/2017-echo 07/16/2017 2:41pm Height 67.50 inches 5'7.50" Weight 237.75 lb [...] Ejection Fraction 55-60% date 07/08/17 ECHO 06/11/2017 9:09am Height 67.50 inches 5'7.50" Weight 235.00 lb no shoes Heart Rate 64 /min BP Systolic Sitting 112 mmHg Rue reg cuff BP Diastolic Sitting 70 mmHg Rue reg cuff BP Systolic Standing 116 mmHg Rue reg cuff BP Diastolic Standing 74 mmHg Rue reg cuff Respiratory Rate 17 /min BMI (Body Mass Index) 36.3 kg/m2 Ejection Fraction 55-60% 02/13/2016-echo 10/17/2016 9:42am Height 67.50 inches 5'7.50" Weight 231.00 lb without shoes Heart Rate 62 /min BP Systolic Sitting 100 mmHg Lue lg cuff BP Diastolic Sitting 70 mmHg Lue lg cuff BP Systolic Standing 108 mmHg Lue lg cuff BP Diastolic Standing 70 mmHg Lue lg cuff Respiratory Rate 17 /min BMI (Body Mass Index) 35.6 kg/m2 09/20/2016 12:50pm Height 66.25 inches 5'6.25" Weight 233.00 lb w/ shoes Heart Rate 70 /min irreg BP Systolic Sitting 120 mmHg Rue, reg cuff BP Diastolic Sitting 76 mmHg Rue, reg cuff Respiratory Rate 16 /min BMI (Body Mass Index) 37.3 kg/m2 Ejection Fraction 55-60% as of 02/13/16 echo 05/28/2016 9:26am Height 66.25 inches 5'6.25" Weight 235.00 lb Heart Rate 68 /min BP Systolic Sitting 114 mmHg BP Diastolic Sitting 70 mmHg Respiratory Rate 14 /min Body Temperature 97.7 F Pain Level 0 BMI (Body Mass Index) 37.6 kg/m2 05/07/2016 11:14am Height 66.25 inches 5'6.25" Weight 235.38 lb Heart Rate 72 /min BP Systolic Sitting 100 mmHg BP Diastolic Sitting 70 mmHg Respiratory Rate 14 /min Body Temperature 97.3 F Pain Level 0 BMI (Body Mass Index) 37.7 kg/m2 04/02/2016 10:12am Height 66.25 inches 5'6.25" Weight 233.00 lb with lite shoes Heart Rate 60 /min BP Systolic Sitting 100 mmHg Ra reg cuff BP Diastolic Sitting 64 mmHg Ra reg cuff BP Systolic Standing 108 mmHg Ra reg cuff BP Diastolic Standing 70 mmHg Ra reg cuff Respiratory Rate 16 /min BMI (Body Mass Index) 37.3 kg/m2 Ejection Fraction 55-60% date 02/13/16 ECHO 03/02/2016 9:33am Height 66.25 inches 5'6.25" Weight 231.00 lb with light shoes Heart Rate 70 /min BP Systolic Sitting 100 mmHg Ra lg cuff BP Diastolic Sitting 70 mmHg Ra lg cuff BP Systolic Standing 110 mmHg Ra lg cuff BP Diastolic Standing 70 mmHg Ra lg cuff Respiratory Rate 15 /min BMI (Body Mass Index) 37.0 kg/m2 Ejection Fraction 55-60% date 02/13/16 ECHO 07/22/2015 10:50am Height 66.25 inches 5'6.25" Weight 240.00 lb with shoes Heart Rate 62 /min BP Systolic Sitting 110 mmHg LA lg cuff BP Diastolic Sitting 70 mmHg LA lg cuff BP Systolic Standing 104 mmHg LA lg cuff BP Diastolic Standing 70 mmHg LA lg cuff Respiratory Rate 16 /min BMI (Body Mass Index) 38.4 kg/m2 Ejection Fraction 55-60% date 12/17/12 ECHO 01/21/2015 11:01am Height 66.25 inches 5'6.25" Weight 239.31 lb with shoes Heart Rate 62 /min BP Systolic Sitting 124 mmHg LA lg cuff BP Diastolic Sitting 80 mmHg LA lg cuff BP Systolic Standing 126 mmHg LA lg cuff BP Diastolic Standing 80 mmHg LA lg cuff Respiratory Rate 16 /min BMI (Body Mass Index) 38.3 kg/m2 Ejection Fraction 50-55% date 12/17/12 06/01/2014 11:10am Height 66.25 inches 5'6.25" Weight 250.00 lb with shoes Heart Rate 62 /min BP Systolic Sitting 116 mmHg LA, Lg cuff BP Diastolic Sitting 78 mmHg LA, Lg cuff BP Systolic Standing 114 mmHg LA BP Diastolic Standing 72 mmHg LA Respiratory Rate 16 /min BMI (Body Mass Index) 40.0 kg/m2 04/14/2014 9:02am Height 66.25 inches 5'6.25" Weight 245.00 lb Heart Rate 64 /min BP Systolic Sitting 126 mmHg BP Diastolic Sitting 70 mmHg Respiratory Rate 16 /min BMI (Body Mass Index) 39.2 kg/m2 10/05/2013 8:59am Height 66.25 inches 5'6.25" Weight 239.00 lb no shoes Heart Rate 66 /min BP Systolic Sitting 134 mmHg Rt arm, Lg cuff BP Diastolic Sitting 80 mmHg Rt arm, Lg cuff BP Systolic Standing 130 mmHg BP Diastolic Standing 80 mmHg Respiratory Rate 18 /min BMI (Body Mass Index) 38.3 kg/m2 06/22/2013 10:27am Height 66 inches 5'6" Weight 227.00 lb Heart Rate 65 /min BP Systolic Sitting 116 mmHg Rt arm, Lrg cuff BP Diastolic Sitting 70 mmHg Rt arm, Lrg cuff BP Systolic Standing 114 mmHg BP Diastolic Standing 74 mmHg Respiratory Rate 16 /min BMI (Body Mass Index) 36.6 kg/m2 05/25/2013 11:30am Height 67 inches 5'7" Weight 235.00 lb Heart Rate 64 /min BP Systolic 139 mmHg BP Diastolic 73 mmHg BMI (Body Mass Index) 36.8 kg/m2 05/05/2013 11:41am Height 242 inches 20'2" Weight 243.00 lb Heart Rate 68 /min BP Systolic Sitting 110 mmHg BP Diastolic Sitting 70 mmHg BMI (Body Mass Index) 2.9 kg/m2 04/01/2013 2:10pm Height 242 inches 20'2" Weight 258.00 lb Heart Rate 84 /min BP Systolic Sitting 122 mmHg BP Diastolic Sitting 70 mmHg BMI (Body Mass Index) 3.1 kg/m2 12/05/2012 2:26pm Height 242 inches Weight 65.00 lb Heart Rate 68 /min BP Systolic Sitting 121 mmHg BP Diastolic Sitting 64 mmHg BMI (Body Mass Index) 0.8 kg/m2 08/20/2012 9:09am Weight 245.00 lb Heart Rate 70 /min BP Systolic 130 mmHg BP Diastolic 70 mmHg Respiratory Rate 18 /min 04/02/2011 10:01am Height 67 inches 5'7" Weight 238.00 lb Heart Rate 78 /min BP Systolic 100 mmHg BP Diastolic 70 mmHg BMI (Body Mass Index) 37.3 kg/m2 11/17/2010 9:57am Height 67 inches 5'7" Weight 244.00 lb BMI (Body Mass Index) 38.2 kg/m2 Results Test Date Facility Test Result H/L Range Note Laboratory test 01/15/2018 [facility] C Reactive 4.50 mg/L N < 5.00 [address] [place] [address] [phone] Erythrocyte Sed Rate 56 mm/Hr High 0-30 2 Myeloperoxidase AB <0.2 U 3 Proteinase 3 0.3 U 4 CBC Auto Diff 01/15/2018 [facility] White Blood 7.7 10^3/uL N 3.5-10.[address] [place] [address] [phone] Red Blood Count 4.53 10^6/uL N 4.0-5.4 Hemoglobin 12.9 g/dL N 12.0-16.0 Hematocrit 39 % N 35-47 Mean Corpuscular Volume 86 fL N 80-97 Mean Corpuscular Hemoglobin 29 pg N 27-31 Mean Corpuscular HGB Conc 33 g/dL N 31-36 Red Cell Distribution Width 14 % N 10.5-15 Platelet Count 348 10^3/uL N 150-450 Mean Platelet Volume 8.1 um3 N 7.4-10.4 Abs Neutrophils 3.8 10^3/uL N 1.5-7.7 Abs Lymphocytes 3.1 10^3/uL N 1.0-4.8 Abs Monocytes 0.6 10^3/uL N 0-0.8 Abs Eosinophils 0.1 10^3/uL N 0-0.6 Abs Basophils 0 10^3/uL N 0-0.2 Abs Nucleated RBC 0 10^3/uL Granulocyte % 50.1 % N 38-83 Lymphocyte % 40.4 % N 25-47 Monocyte % 7.8 % High 0-7 Eosinophil % 1.2 % N 0-6 Basophil % 0.5 % N 0-2 Nucleated Red Blood Cells % 0.1 Comp Metabolic Panel 01/15/2018 [facility] Sodium 141 mmol/L N 139-[address] [place] [address] [phone] Potassium 3.9 mmol/L N 3.5-5.0 Chloride 107 mmol/L N 101-111 Co2 Carbon Dioxide 25 mmol/L N 22-32 Anion Gap 9 mmol/L N 2-11 Glucose 191 mg/dL High 70-100 Blood Urea Nitrogen 16 mg/dL N 6-24 Creatinine 0.70 mg/dL N 0.51-0.95 BUN/Creatinine Ratio 22.9 High 8-20 Calcium 9.3 mg/dL N 8.6-10.3 Total Protein 7.1 g/dL N 6.4-8.9 Albumin 3.5 g/dL N 3.2-5.2 Globulin 3.6 g/dL N 2-4 Albumin/Globulin Ratio 1.0 N 1-3 Total Bilirubin 0.40 mg/dL N 0.2-1.0 Alkaline Phosphatase 65 U/L N 34-104 Alt 15 U/L N 7-52 Ast 26 U/L N 13-39 Egfr Non- 84.5 >60 Egfr 108.7 >60 5 Protein 01/15/2018 [facility] Total 7.4 g/dL 6.3 - Electrophoresis [address] Protein(Pep) 7.9 [place], [place] [id number] [phone] Albumin 2.9 g/dL Abnormal 3.4-4.7 Alpha-1 Globulin 0.2 g/dL 0.1-0.3 Alpha-2 Globulin 1.4 g/dL Abnormal 0.6-1.0 Beta Globulin 1.0 g/dL 0.7-1.2 Gamma Globulin 1.9 g/dL Abnormal 0.6-1.6 Albumin/Globulin Ratio 0.63 Impression See Comment 6 Comp Metabolic Panel 12/10/2017 [facility] Sodium 139 mmol/L N 139-[address] [place] [address] [phone] Potassium 4.5 mmol/L N 3.5-5.0 Chloride 103 mmol/L N 101-111 Co2 Carbon Dioxide 26 mmol/L N 22-32 Anion Gap 10 mmol/L N 2-11 Glucose 249 mg/dL High 70-100 Blood Urea Nitrogen 30 mg/dL High 6-24 Creatinine 0.90 mg/dL N 0.51-0.95 BUN/Creatinine Ratio 33.3 High 8-20 Calcium 9.6 mg/dL N 8.6-10.3 Total Protein 7.1 g/dL N 6.4-8.9 Albumin 3.7 g/dL N 3.2-5.2 Globulin 3.4 g/dL N 2-4 Albumin/Globulin Ratio 1.1 N 1-3 Total Bilirubin 0.40 mg/dL N 0.2-1.0 Alkaline Phosphatase 68 U/L N 34-104 Alt 19 U/L N 7-52 Ast 26 U/L N 13-39 Egfr Non- 63.4 >60 Egfr 81.6 >60 7 Laboratory test 12/10/2017 [facility] Creatine 78 U/L N 10- [address] Kinase(CK) [place] [address] [phone] TSH (Thyroid Stim Horm) 2.10 mcIU/mL N 0.34-5.60 C Reactive Protein 11.27 mg/L High < 5.00 8 Urine Culture And 12/10/2017 [facility] Urine Culture SEE RESULT [address] [place] [address] [phone] CBC Auto Diff 12/10/2017 [facility] White Blood 7.5 10^3/uL N 3.5-[address] Count .8 [place] [address] [phone] Red Blood Count 4.62 10^6/uL N 4.0-5.4 Hemoglobin 13.3 g/dL N 12.0-16.0 Hematocrit 40 % N 35-47 Mean Corpuscular Volume 86 fL N 80-97 Mean Corpuscular Hemoglobin 29 pg N 27-31 Mean Corpuscular HGB Conc 33 g/dL N 31-36 Red Cell Distribution Width 15 % N 10.5-15 Platelet Count 278 10^3/uL N 150-450 Mean Platelet Volume 8.3 um3 N 7.4-10.4 Abs Neutrophils 3.9 10^3/uL N 1.5-7.7 Abs Lymphocytes 2.7 10^3/uL N 1.0-4.8 Abs Monocytes 0.6 10^3/uL N 0-0.8 Abs Eosinophils 0.1 10^3/uL N 0-0.6 Abs Basophils 0.1 10^3/uL N 0-0.2 Abs Nucleated RBC 0 10^3/uL Granulocyte % 52.3 % N 38-83 Lymphocyte % 36.3 % N 25-47 Monocyte % 8.7 % High 0-7 Eosinophil % 1.7 % N 0-6 Basophil % 1.0 % N 0-2 Nucleated Red Blood Cells % 0.2 Laboratory test 12/10/2017 [facility] Erythrocyte Sed 55 mm/Hr High 0-[address] [place] [address] [phone] Anca AB Ser If 12/10/2017 [facility] C-Anca Negative Negative [address] [place] [address] [phone] P-Anca Positive Abnormal Negative 10 Laboratory test 12/10/2017 [facility] Anti Double <12.3 IU/mL [address] [place] [address] [phone] Urinalysis Profile 12/10/2017 [facility] Urine Color Yellow [address] [place] [address] [phone] Urine Appearance Clear Urine Specific [place] 1.023 N 1.010-1.030 Urine pH 5.0 N 5-9 Urine Urobilinogen Negative Negative Urine Ketones Negative Negative Urine Protein Negative Negative Urine Leukocytes Trace Abnormal Negative Urine Blood Negative Negative Urine Nitrite Negative Negative Urine Bilirubin Negative Negative Urine Glucose 3+(>=500 mg/dL) Abnormal Negative Urine White Blood Cell Trace(0-5/hpf) Absent Urine Red Blood Cell Trace(0-2/hpf) Absent Urine Bacteria Absent Absent Urine Squamous Epithelial Cell Present Abnormal Absent Laboratory test 07/25/2017 [facility] Magnesium 2.0 mg/dL N 1.9-2.7 finding [address] [place] [address] [phone] Basic Metabolic 07/25/2017 [facility] Sodium 139 mmol/L N 133- 145 Panel [address] [place] [address] [phone] Potassium 4.9 mmol/L N 3.5-5.0 Chloride 104 mmol/L N 101-111 Co2 Carbon Dioxide 28 mmol/L N 22-32 Anion Gap 7 mmol/L N 2-11 Glucose 151 mg/dL High 70-100 Blood Urea Nitrogen 23 mg/dL N 6-24 Creatinine 0.69 mg/dL N 0.51-0.95 BUN/Creatinine Ratio 33.3 High 8-20 Calcium 10.1 mg/dL N 8.6-10.3 Egfr Non- 86.2 >60 Egfr 110.9 >60 12 Laboratory test 07/25/2017 [facility] B-Type 153 pg/mL High 13 finding [address] [facility] [place] [address] Peptide BNP [phone] CBC Auto Diff 07/25/2017 [facility] White Blood 8.9 N 3.5-[address] Count 10^3/uL 0.8 [place] [address] [phone] Red Blood Count 4.99 10^6/uL N 4.0-5.4 Hemoglobin 14.3 g/dL N 12.0-16.0 Hematocrit 43 % N 35-47 Mean Corpuscular Volume 87 fL N 80-97 Mean Corpuscular Hemoglobin 29 pg N 27-31 Mean Corpuscular HGB Conc 33 g/dL N 31-36 Red Cell Distribution Width 14 % N 10.5-15 Platelet Count 310 10^3/uL N 150-450 Mean Platelet Volume 8 um3 N 7.4-10.4 Abs Neutrophils 5.8 10^3/uL N 1.5-7.7 Abs Lymphocytes 2.4 10^3/uL N 1.0-4.8 Abs Monocytes 0.5 10^3/uL N 0-0.8 Abs Eosinophils 0.2 10^3/uL N 0-0.6 Abs Basophils 0.1 10^3/uL N 0-0.2 Abs Nucleated RBC 0 10^3/uL Granulocyte % 65.1 % N 38-83 Lymphocyte % 26.4 % N 25-47 Monocyte % 5.5 % N 1-9 Eosinophil % 1.9 % N 0-6 Basophil % 1.1 % N 0-2 Nucleated Red Blood Cells % 0 Laboratory test 07/23/2017 [facility] B-Type Natriuretic < pending> finding [address] [place] [address] [phone] Laboratory test 07/23/2017 [facility] Magnesium <pending> finding [address] [place] [address] [phone] TSH (Thyroid Stim Horm) <pending> Laboratory test 07/10/2017 [facility] Surgical SEE RESULT [address] [place] [address] [phone] Laboratory test 07/10/2017 [facility] Point of Care 173 mg/dL High 70-1 [address] Glucose 00 [place] [address] [phone] Laboratory test 10/29/2016 [facility] Apligraf SEE RESULTS 16, [address] BELO <[place] [address] NOTE> [phone] Laboratory test 05/07/2016 [facility] C Reactive 4.41 mg/L N < [address] Protein 5.00 [place] [address] [phone] Erythrocyte Sed Rate 39 mm/Hr High 0-30 Anca AB Ser If 05/07/2016 [facility] C-Anca Negative N Negative [address] [place] [address] [phone] P-Anca Positive N Negative 19 Comp Metabolic Panel 05/07/2016 [facility] Sodium 136 mmol/L N 133-145 [address] [place] [address] [phone] Potassium 4.4 mmol/L N 3.5-5.0 Chloride 102 mmol/L N 101-111 Co2 Carbon Dioxide 25 mmol/L N 22-32 Anion Gap 9 mmol/L N 2-11 Glucose 300 mg/dL High 70-100 Blood Urea Nitrogen 25 mg/dL High 6-24 Creatinine 0.70 mg/dL N 0.51-0.95 BUN/Creatinine Ratio 35.7 High 8-20 Calcium 9.6 mg/dL N 8.6-10.3 Total Protein 7.6 g/dL N 6.4-8.9 Albumin 3.9 g/dL N 3.2-5.2 Globulin 3.7 g/dL N 2-4 Albumin/Globulin Ratio 1.1 N 1-3 Total Bilirubin 0.70 mg/dL N 0.2-1.0 Alkaline Phosphatase 48 U/L N 34-104 Alt 30 U/L N 7-52 Ast 44 U/L High 13-39 Egfr Non- 85.1 N >60 Egfr 109.4 N >60 20 CBC Auto Diff 05/07/2016 [facility] White Blood 7.8 10^3/uL N 3.5-10.[address] [place] [address] [phone] Red Blood Count 4.59 10^6/uL N 4.0-5.4 Hemoglobin 13.2 g/dL N 12.0-16.0 Hematocrit 40 % N 35-47 Mean Corpuscular Volume 87 fL N 80-97 Mean Corpuscular Hemoglobin 29 pg N 27-31 Mean Corpuscular HGB Conc 33 g/dL N 31-36 Red Cell Distribution Width 14 % N 10.5-15 Platelet Count 282 10^3/uL N 150-450 Mean Platelet Volume 9 um3 N 7.4-10.4 Abs Neutrophils 4.5 10^3/uL N 1.5-7.7 Abs Lymphocytes 2.5 10^3/uL N 1.0-4.8 Abs Monocytes 0.7 10^3/uL N 0-0.8 Abs Eosinophils 0.1 10^3/uL N 0-0.6 Abs Basophils 0.1 10^3/uL N 0-0.2 Abs Nucleated RBC 0.01 10^3/uL N Granulocyte % 57.0 % N 38-83 Lymphocyte % 31.7 % N 25-47 Monocyte % 8.6 % N 1-9 Eosinophil % 1.7 % N 0-6 Basophil % 1.0 % N 0-2 Nucleated Red Blood Cells % 0.2 N Laboratory test 05/07/2016 [facility] Creatine 97 U/L N 10- [address] Kinase(CK) [place] [address] [phone] Free Cortisol Serum 0.11 g/dL N 21 Vitamin B12 And 05/07/2016 [facility] Vitamin B12 222 pg/mL N 180-914 22 Folate Serum [address] [place] [address] [phone] Folic Acid (Folate) > 20.00 ng/mL N >3.99 Urine Culture And 05/07/2016 [facility] Urine Culture SEE RESULT [address] [place] [address] [phone] Urinalysis Profile 05/07/2016 [facility] Urine Color Yellow N [address] [place] [address] [phone] Urine Appearance Cloudy N Urine Specific [place] 1.023 N 1.010-1.030 Urine pH 5.0 N 5-9 Urine Urobilinogen Negative N Negative Urine Ketones Negative N Negative Urine Protein Negative N Negative Urine Leukocytes 3+ Abnormal Negative Urine Blood Negative N Negative Urine Nitrite Negative N Negative Urine Bilirubin Negative N Negative Urine Glucose 3+(>=500 mg/dL) Abnormal Negative Urine White Blood Cell Trace(0-5/hpf) N Absent Urine Red Blood Cell Trace(0-2/hpf) N Absent Urine Bacteria Absent N Absent Urine Squamous Epithelial Cell Present Abnormal Absent Vitamin D 1,25 05/07/2016 [facility] Vitamin D, 46 pg/mL N 18- 78 24 And Vitamin D,[address] 1,25 [place] [address] [phone] Order 03/02/2016 [facility] EKG <pending> [address] [place] [address] [phone] Neutrophil 04/02/2013 [facility] C-Anca Negative Negative Cytoplasmic AB [address] [place] [address] [phone] P Anca Negative Negative Anca Reviewed By MD Ajit Jacobs <SEE NOTE> 25 Anca Panel For 04/02/2013 [facility] Myeloperoxidase AB <0.2 U [address] [place] [address] [phone] Proteinase 3 AB <0.2 U 27 CBC With 04/02/2013 [facility] White Blood 7.2 10^3/uL 4.8- 10.[address] [place] [address] [phone] Red Blood Count 4.17 10^6/uL 4.0-5.4 Hemoglobin [...] Morphology Normal Normal Comp Metabolic Panel 04/02/2013 [facility] Sodium 139 mmol/L 133-[address] [place] [address] [phone] Potassium 4.0 mmol/L 3.5-5.0 Chloride 104 mmol/L [...] >60 Egfr 132.1 >60 28 Laboratory test 04/02/2013 [facility] C Reactive 1.3 mg/dL High Less than finding [address] Protein 0.5 [place] [address] [phone] Erythrocyte Sed Rate 48 mm/Hr High 0-30 Urinalysis 04/02/2013 [facility] Urine Color Yellow [address] [place] [address] [phone] Urine Appearance Clear Urine Specific [place] 1.031 High 1.010-1.030 Urine Esterase Negative Negative Urine Nitrate Negative Negative Urine Urobilinogen Negative E.U./dL Negative Urine Protein Trace mg/dL Abnormal Negative Urine pH 6.0 5-9 Urine Blood Trace Abnormal Negative Urine Ketones 1+ mg/dL Abnormal Negative Urine Bilirubin Negative Negative Urine Glucose Negative mg/dL Negative Urine Microscopic 04/02/2013 [facility] Urine WBC 1+ (<10 None Seen [address] /hpf) [place] [address] [phone] Urine RBC 1+ (<3 /hpf) None Seen Urine Mucus Present /lpf Absent Urine Epithelial Cells 2+ Squamous /hpf None Seen Bacteria Urine 1+ None Seen Urine Microscopic 01/05/2013 [facility] Urine WBC 1+ (<10 None Seen [address] /hpf) [place] [address] [phone] Urine RBC None Seen None Seen Urine Mucus Present /lpf Absent Urine Epithelial Cells 3+ Squamous /hpf None Seen Bacteria Urine 2+ None Seen Laboratory test 01/05/2013 [facility] Creatine Kinase 65 U/L 0-[address] [place] [address] [phone] TSH (Thyroid Stimulating Horm) 1.30 miu/mL 0.34-5.60 Free T4 1.09 ng/mL 0.61-1.24 Vitamin B12 227 pg/mL 180-914 Urinalysis 01/05/2013 [facility] Urine Color Yellow [address] [place] [address] [phone] Urine Appearance Clear Urine Specific [place] 1.023 1.010-1.030 Urine Esterase Trace Abnormal Negative Urine Nitrate Negative Negative Urine Urobilinogen Negative E.U./dL Negative Urine Protein Negative mg/dL Negative Urine pH 5.5 5-9 Urine Blood Negative Negative Urine Ketones Negative mg/dL Negative Urine Bilirubin Negative Negative Urine Glucose Trace mg/dL Abnormal Negative Comp Metabolic Panel 01/05/2013 [facility] Sodium 138 mmol/L 133-145 [place] [address] [phone] Potassium 4.2 mmol/L 3.5-5.0 Chloride 101 mmol/L [...] >60 Egfr 110.9 >60 29 Neutrophil Cytoplasmic 01/05/2013 [facility] C-Anca Negative Negative AB [address] [place] [address] [phone] P Anca Negative Negative Anca Reviewed By MD Ajit Jacobs <SEE NOTE> 30 Laboratory test 01/05/2013 [facility] Erythrocyte Sed 48 mm/Hr High 0-30 finding [address] [place] [address] [phone] C Reactive Protein 1.2 mg/dL High Less than 0.5 CBC With 01/05/2013 [facility] White Blood 9.3 10^3/uL 4.8- 10.8 Manual Diff [address] [place] [address] [phone] Red Blood Count 4.36 10^6/uL 4.0-5.4 Hemoglobin [...] % 0-6 Basophil % 1 % 0-2 Ashley Cells 1+ Laboratory test 06/16/2012 [facility] B Type 153.0 High 0-[address] Natriuretic pg/[place] [address] Peptide [phone] Basic Metabolic 06/16/2012 [facility] Sodium 136 133-[address] mmol/L [place], [place] [address] [phone] Potassium 4.3 mmol/L 3.5-5.0 Chloride 99 mmol/L Low 101-111 Co2 Carbon Dioxide 29.0 mmol/L 22-32 Anion Gap 8.0 mmol/L 2-11 Glucose 203 mg/dL High 70-100 Blood Urea Nitrogen 18 mg/dL 6-24 Creatinine 0.60 mg/dL 0.50-1.40 BUN/Creatinine Ratio 30.0 High 8-20 Calcium 9.2 mg/dL 8.1-9.9 Egfr Non- 103.0 >60 Egfr 132.5 >60 31 1 Acute inflammation: >10.00 2 Please check labs 1 week before follow up 3 REFERENCE VALUE <0.4 (Negative) Test Performed by: [facility] [address] [place] [address] 4 REFERENCE VALUE <0.4 (Negative) Test Performed by: [address] [address] 5 Because ethnic data is not always readily [...] 15-29 5 Kidney failure <15 (or dialysis) 6 RESULT: Polyclonal hypergammaglobulinemia Test Performed by: [address] [address] 7 Because ethnic data is not always readily [...] 15-29 5 Kidney failure <15 (or dialysis) 8 Acute inflammation: >10.00 9 SEE RESULT BELOW Name: AYANNA MOHAMUD : [address]: Lennox Babcock MD Acct: [id number] Unit: [id number] AGE: 62 Location: LAB Re12/10/17 SEX: F Status: REG REF SPEC: [id number] [place]: 12/10/17-[address] [facility] [address]: Lennox Babcock MD REQ: [id number] RECD: 12/10/17 STATUS: COMP _ SOURCE: URINE SPDESC: ORDERED: Urine Culture Procedure Result Reported Site Urine Culture Final 12/11/17- 1338 ML Organism 1 AEROCOCCUS URINAE [place] Count 75-100,000 (Many) CFU/ML Aerococcus isolates are too fastidious for routine susceptibility studies. Aerococcus are usually susceptible to penicillin, amoxicillin, piperacillin, cefipime, rifampin and vancomycin. Moderate to good activity occurs with the quinolones, tetracyclines and erythromycin. (Melecio's Color [place] and Textbook of Diagnostic Microbiology 6th Ed. 2006, p. 705-6.) * - Main Lab . END OF REPORT DEPARTMENT OF PATHOLOGY, [address] [place] [address] Ajit Lamb M.D. Director [facility] # [id number] 10 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 Suggest further testing for anti-myeloperoxidase (anti-MPO) antibodies, if clinically indicated. ADDITIONAL INFORMATION This test was developed and its performance characteristics determined by [facility] in a manner consistent with CLIA requirements. This test has not been cleared or approved by the U.S. Food and Drug Administration. Test Performed by: [facility] - [address] [address] 11 REFERENCE VALUE <30.0 (Negative) Test Performed by: [address] [address] 12 Because ethnic data is not always readily [...] 15-29 5 Kidney failure <15 (or dialysis) 13 >100 to <200 pg/mL: likely compensated congestive heart failure (CHF) 200 to 400 pg/mL: likely moderate CHF >400 pg/mL: likely moderate to severe CHF 14 SEE RESULT BELOW Name: AYANNA MOHAMUD : [address]: Gin Alvarado MD Acct: [id number] Unit: [id number] AGE: 62 Location: [facility] Re07/10/17 SEX: F Status: REG REF SPEC: [id number] [place]: 07/10/[address] [facility] [address]: Gin Alvarado MD REQ: [id number] RECD: 07/10/174 STATUS: SOUT _ ORDERED: LEVEL 1 FINAL DIAGNOSIS Pacemaker generator, removal: Foreign body (pacemaker generator) (Gross diagnosis). PRE-OPERATIVE DIAGNOSIS Pacemaker generator end of life GROSS DESCRIPTION The specimen is received fresh with no source identified and a requisition labeled, Pacemaker Generator, and consists of a 5.0 x 4.5 x 0.7 cm silver metallic medical reviewer. The following inscription is identified: Profind Revo MRI SureScan SN [id number] OAE-DDDR CH. Per established hospital medical staff protocol, no tissue is submitted. Gross only. Signed (signature on file) Briseyda Conley MD 11/23 0828 END OF REPORT * ML=Testing performed at Main Lab DEPARTMENT OF PATHOLOGY, [address] [place] [address] Ajit Lamb M.D. Director [facility] # [id number] 15 Religion Teacher: [id number] FU 17 SEE RESULTS BELOW [id number] APLIGRAF TRANSFUSED 10/30/16 0930 18 Acute inflammation: >10.00 19 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 Suggest further testing for anti-myeloperoxidase (anti-MPO) antibodies, if clinically indicated. Test Performed by: [place] [address] Grinding Mill Operator: Jaspreet Sanchez II, M.D., Ph.D. 20 Because ethnic data is not always readily [...] 15-29 5 Kidney failure <15 (or dialysis) 21 Adult Reference Ranges for Cortisol, Free, LC/MS/MS: 8:00 - 10:00 AM 0.07-0.93 mcg/dL 4:00 - 6:00 PM 0.04-0.45 mcg/dL 10:00 - 11:00 PM 0.04-0.35 mcg/dL This test was developed and its analytical performance characteristics have been determined by [facility]. It has not been cleared or approved by FDA. This assay has been validated pursuant to the CLIA regulations and is used for clinical purposes. Test Performed by: [facility] [address] [facility] [place] [address] 22 Normal Range 180 to 914 Indeterminate Range 145 to 180 Deficient Range <145 23 SEE RESULT BELOW Name: AYANNA MOHAMUD : [address]: Lennox Babcock MD Acct: [id number] Unit: [id number] AGE: 61 Location: LAB Re05/07/16 SEX: F Status: REG REF SPEC: [id number] [place]: 05/07/16-[address]: Lennox Babcock MD REQ: [id number] RECD: 05/07/16-1303 STATUS: COMP _ SOURCE: URINE SPDESC: ORDERED: Urine Culture Procedure Result Reported Site Urine Culture Final 05/08/16- 1618 ML No growth of clinically significant organisms * ML - MAIN LAB ([facility]) . END OF REPORT * ML=Testing performed at Main Lab DEPARTMENT OF PATHOLOGY, [address] [place] [address] Ajit Lamb M.D. Director [facility] # [id number] 24 Test Performed by: [facility] [place] [id number] [employer] Operator: Jaspreet Sanchez II, M.D., Ph.D. 25 Ajit Lamb 26 -- REFERENCE VALUE -- <0.4 (Negative) 27 -- REFERENCE VALUE -- <0.4 (Negative) Test Performed by: [facility] [address] [place] [address] Grinding Mill Operator: Brandon Perez III, M.D. 28 Because ethnic [...] Kidney failure <15 (or dialysis) Procedures Date Code Description Status 07/18/2018 09159 EKG Tracing & Interpretation Completed 07/10/2018 54658 Removal Devitalization Tissue Wound Less Than Equal 20 Completed Square CM 06/19/2018 14808 Application Skin Substitute Graft Trunk,Arms Lets Up To Completed 100 SQ CM 06/12/2018 07852 Pace Maker Eval W/Iterative Adjment Dual Lead Completed 06/12/2018 86188 Pace Maker Eval W/Iterative Adjment Dual Lead Completed 06/05/2018 70338 Removal Devitalization Tissue Wound Less Than Equal 20 Completed Square CM 05/29/2018 16022 Removal Devitalization Tissue Wound Less Than Equal 20 Completed Square CM 05/15/2018 21843 Removal Devitalization Tissue Wound Less Than Equal 20 Completed Square CM 04/29/2018 38231 Removal Devitalization Tissue Wound Less Than Equal 20 Completed Square CM 04/22/2018 14621 Removal Devitalization Tissue Wound Less Than Equal 20 Completed Square CM 04/15/2018 33284 Removal Devitalization Tissue Wound Less Than Equal 20 Completed Square CM 11/26/2017 37492 Pace Maker Eval W/Iterative Adjment Dual Lead Completed 11/26/2017 55271 Pace Maker Eval W/Iterative Adjment Dual Lead Completed 10/21/2017 36084 Pace Maker Eval W/Iterative Adjment Dual Lead Completed 10/21/2017 78361 Pace Maker Eval W/Iterative Adjment Dual Lead Completed 10/11/2017 46479 EKG Tracing & Interpretation Completed 08/29/2017 72702 Pace Maker Eval W/Iterative Adjment Dual Lead Completed 08/29/2017 52711 Pace Maker Eval W/Iterative Adjment Dual Lead Completed 07/23/2017 38975 Pace Maker Eval W/Iterative Adjment Dual Lead Completed 07/23/2017 68352 Pace Maker Eval W/Iterative Adjment Dual Lead Completed 07/16/2017 87072 Pace Maker Eval W/Iterative Adjment Dual Lead Completed 07/16/2017 90030 Pace Maker Eval W/Iterative Adjment Dual Lead Completed 07/10/2017 17463 Removal With Replacement Dual Lead System Pulse Generator Completed 07/08/2017 48312 ECHO Transthorasic Realtime 2D W Doppler & Color Flow Hosp Completed 07/08/2017 39363 Treadmill Interp/Report Only Completed 07/08/2017 36285 Stress Test Supervsn W/Out I/R Completed 07/08/2017 48556 EKG, Interpretation Only Completed 07/03/2017 81072 Pace Maker Eval W/Iterative Adjment Dual Lead Completed 07/03/2017 62748 Pace Maker Eval W/Iterative Adjment Dual Lead Completed 05/10/2017 75642 Pace Maker Eval W/Iterative Adjment Dual Lead Completed 04/09/2017 93351 Pace Maker Eval W/Iterative Adjment Dual Lead Completed 01/15/2017 48629 Interrogation Device Eval In Person W/DR Completed Analysis,Single,Dual,Mul 11/13/2016 39426 Removal Devitalization Tissue Wound Less Than Equal 20 Completed Square CM 10/30/2016 46346 Application Skin Graft Face,Scalp,Eyelids,Mouth, Neck Up Completed To 100CM 10/23/2016 13965 Burn Treatment W/O Anes Small Completed 10/17/2016 22543 Pace Maker Eval W/Iterative Adjment Dual Lead Completed 10/16/2016 20558 Burn Treatment W/O Anes Small Completed 10/09/2016 96280 Burn Treatment W/O Anes Small Completed 09/25/2016 60265 Burn Treatment W/O Anes Small Completed 09/19/2016 89894 Debridement Skin,& sq Tissue Completed 03/09/2016 74761 Interrogation Device Eval In Person W/DR Completed Analysis,Single,Dual,Mul 03/02/2016 99373 Interrogation Device Eval In Person W/DR Completed Analysis,Single,Dual,Mul 02/13/2016 81386 ECHO Transthoracic, Real-Time 2D With Doppler And Color Completed Flow 02/13/2016 59273 Pace Maker Eval W/Iterative Adjment Dual Lead Completed 07/14/2015 03161 Pace Maker Eval W/Iterative Adjment Dual Lead Completed 12/23/2014 91949 Mobile Cardiovascular Telemetry Over 24 HR Up To 30 Days Completed 12/14/2014 08064 Pace Maker Eval W/Iterative Adjment Dual Lead Completed 06/01/2014 48200 Interrogation Device Eval In Person W/ Completed Analysis,Single,Dual,Mul 03/24/2014 48196 Pace Maker Eval W/Iterative Adjment Dual Lead Completed 08/21/2013 03486 Pace Maker Eval W/Iterative Adjment Dual Lead Completed 06/25/2013 37807 Pace Maker Eval W/Iterative Adjustment Single Lead Completed 06/22/2013 74524 Pace Maker Eval W/Iterative Adjment Dual Lead Completed 05/25/2013 57088 Rad Exam; Foot Comp Completed 05/25/2013 57764 Rad Exam; Ankle Comp Completed 05/04/2013 74502 Pace Maker Eval W/Iterative Adjment Dual Lead Completed 12/17/2012 88813 ECHO Transthoracic, Real-Time 2D With Doppler And Color Completed Flow 10/02/2012 60554 Nerve Conduction 05-06 Studies Completed 10/02/2012 63396 Needle Electromyography Complete, Five Or More Muscles Completed Studied 07/14/2012 90781 Pace Maker Eval W/Iterative Adjment Dual Lead Completed 06/27/2012 45778 EKG Tracing & Interpretation Completed Encounters Type Date Location Provider Dx Diagnosis Office Visit 07/24/2018 [facility] [place] Elena, E11.622 Type 2 diabetes 11:00a AT [facility] MMajor mellitus with other skin ulcer L97.821 Non-prs chr ulcer oth prt l low leg limited to brkdwn skin E11.40 Type 2 diabetes mellitus with diabetic neuropathy, unsp I10 Essential (primary) hypertension Office Visit 07/21/2018 11:00a Orthopedic Jemal Condon, Z79.4 halfway Services Of (current) use of C.M.A. insulin E11.40 Type 2 diabetes mellitus with diabetic neuropathy, unsp S92.422D Disp fx of dist phalanx of l great toe, 7thD S90.421A Blister (nonthermal), right great toe, initial encounter L53.9 Erythematous condition, unspecified Office Visit 07/18/2018 10:40a [facility] Gin Alvarado, I48.2 Chronic atrial Of V/[place] Signal Officer AT [facility] MMajor fibrillation I44.2 Atrioventricular block, complete Z95.0 Presence of cardiac pacemaker E11.8 Type 2 diabetes mellitus with unspecified complications C88.0 Waldenstrom macroglobulinemia Office Visit 07/03/2018 11:00a Wound Care [place] Jonas L97.821 Non-prs chr Center AT [facility] Pili Elena ulcer oth prt l low leg limited to brkdwn skin E11.622 Type 2 diabetes mellitus with other skin ulcer E11.621 Type 2 diabetes mellitus with foot ulcer E11.40 Type 2 diabetes mellitus with diabetic neuropathy, unsp Office Visit 06/16/2018 1:30p Linda Condon, S92.425D Nondisp fx of Services Of dist phalanx of C.M.A. l great toe, 7thD Office Visit 06/09/2018 1:00p Linda Condon, W18.49xA Oth slipping, Services Of tripping and C.M.A. stumbling w/o falling, init S92.425B Nondisp fx of dist phalanx of l great toe, init for opn fx Office Visit 06/04/2018 1:15p Linda Condon, S92.425B Nondisp fx of Services Of dist phalanx C.M.A. of l great toe, init for opn fx W18.49xA Oth slipping, tripping and stumbling w/o falling, init Office Visit 06/02/2018 1:00p Linda Condon S92.412B Disp fx of Services Of prox phalanx C.M.A. of left great toe, init for opn fx Office Visit 04/15/2018 8:00a W[facility] [place] BlancaAlyssa E11.621 Type 2 AT [facility] Pili Elena diabetes mellitus with foot ulcer E11.622 Type 2 diabetes mellitus with other skin ulcer L97.511 Non-prs chronic ulcer oth prt r foot limited to brkdwn skin L97.821 Non-prs chr ulcer oth prt l low leg limited to brkdwn skin Office Visit 02/25/2018 Rheumatology Lennox M31.30 Erickson's 8:40a Services Of Jerry Babcock M.D. granulomatosis without renal involvement Z79.52 adjunct faculty for medical terminology (current) use of systemic steroids E13.42 Oth diabetes mellitus with diabetic polyneuropathy R53.1 Weakness I83.891 Varicose veins of r low extrem with other complications Office Visit 12/25/2017 Rheumatology Lennox Stokes1.30 [facility]kson's 4:20p Services Of Jerry Babcock M.D. granulomatosis without renal involvement Z79.52 adjunct faculty for medical terminology (current) use of systemic steroids E13.42 Oth diabetes mellitus with diabetic polyneuropathy R53.1 Weakness Office Visit 12/02/2017 Rheumatology Lennox Stkoes1.30 Erickson's 3:20p Services Of Jerry Babcock M.D. granulomatosis without renal involvement Z79.52 adjunct faculty for medical terminology (current) use of systemic steroids E13.42 Oth diabetes mellitus with diabetic polyneuropathy R53.1 Weakness Office Visit 10/11/2017 11:20a [facility] Gin Alvarado I48.2 Chronic atrial Of [facility] AT [facility] MAlyssaD. fibrillation Z95.0 Presence of cardiac pacemaker R06.02 Shortness of breath I44.2 Atrioventricular block, complete Office Visit 07/23/2017 1:30p [facility] Renata Cano I48.2 Chronic atrial Of [facility] [place] fibrillation R06.02 Shortness of breath Z95.0 Presence of cardiac pacemaker Office Visit 07/16/2017 3:00p [facility] JOSÉ Hackett Z95.0 Presence of Of [facility] cardiac pacemaker I48.2 Chronic atrial fibrillation R06.02 Shortness of breath Office Visit 07/08/2017 3:04p [facility] Jesus Landis R07.9 Chest pain, Of Jerry Toscano M.D. unspecified R06.02 Shortness of breath Z95.0 Presence of cardiac pacemaker Office Visit 07/08/2017 [facility] Nikolai Kirk I48.2 Chronic atrial 7:34a sarah Tim II, M.D. fibrillation Hospitalists E11.9 Type 2 diabetes mellitus without complications R07.9 Chest pain, unspecified Z95.0 Presence of cardiac pacemaker Office Visit 06/11/2017 9:00a [facility] Gin Alvarado, I48.2 Chronic atrial Of Jerry Alejandre fibrillation Z95.0 Presence of cardiac pacemaker Office Visit 11/27/2016 10:36a Wound Care [place] Jonas E11.621 Type 2 diabetes Center AT [facility] Pili Elena mellitus with foot ulcer L97.512 Non-prs chronic ulcer oth prt right foot w fat layer exposed Office Visit 11/06/2016 4:18p Wound Care Tapan Jonas E11.621 Type 2 diabetes Center AT [facility] Pili Elena mellitus with foot ulcer T25.321A Burn of third degree of right foot, initial encounter L97.512 Non-prs chronic ulcer oth prt right foot w fat layer exposed X19.xxxA Contact with other heat and hot substances, init encntr Office Visit 10/17/2016 10:00a [facility] JOSÉ Hackett Z95.0 Presence of Of [facility] cardiac pacemaker I48.2 Chronic atrial fibrillation R42 Dizziness and giddiness Office Visit 09/20/2016 1:30p [facility] Charles Palomino T25.021A Burn of Medicine Of [facility] Pili Bosch unspecified degree of right foot, initial encounter I83.93 Asymptomatic varicose veins of bilateral lower extremities Office Visit 09/12/2016 10:00a Wound Care Catarino Cazares E11.621 Type 2 diabetes Center AT [facility] MD Marlene mellitus with foot ulcer T25.321A Burn of third degree of right foot, initial encounter L97.512 Non-prs chronic ulcer oth prt right foot w fat layer exposed Office Visit 09/06/2016 [facility] Maegan E11.42 Type 2 diabetes 2:13p sarah Tim M.D. mellitus with Hospitalists diabetic polyneuropathy L03.115 Cellulitis of right lower limb T25.021A Burn of unspecified degree of right foot, initial encounter Office Visit 09/06/2016 7:00a Surgical Leandro Smith T25.121D Burn of first [facility] Of Jerry De Santiago M.D. degree of right foot, subsequent encounter X19.xxxD Contact with other heat and hot substances, subs encntr T25.121D Burn of first degree of right foot, subsequent encounter L03.115 Cellulitis of right lower limb E11.40 Type 2 diabetes mellitus with diabetic neuropathy, unsp X19.xxxD Contact with other heat and hot substances, subs encntr E11.40 Type 2 diabetes mellitus with diabetic neuropathy, unsp Office Visit 05/28/2016 Rheumatology Lennox M31.30 [facility]on's 9:20a Services Of Jerry Babcock M.D. granulomatosis without renal involvement Z79.52 halfway (current) use of systemic steroids R53.1 Weakness R20.8 Other disturbances of skin sensation Office Visit 05/07/2016 Rheumatology Lennox M31.30 [facility] 11:00a Services Of Jerry Babcock M.D. granulomatosis without renal involvement Z79.52 adjunct faculty for medical terminology (current) use of systemic steroids R53.1 Weakness R20.8 Other disturbances of skin sensation Z79.4 halfway (current) use of insulin E11.42 Type 2 diabetes mellitus with diabetic polyneuropathy Office Visit 04/02/2016 10:30a [facility] JOSÉ Hackett Z95.0 Presence of Of [facility] cardiac pacemaker I48.2 Chronic atrial fibrillation R06.02 Shortness of breath Office Visit 03/02/2016 9:45a [facility] Gin Alvarado I48.2 Chronic atrial Of Jerry M.DAlyssa fibrillation Z95.0 Presence of cardiac pacemaker I44.2 Atrioventricular block, complete R06.02 Shortness of breath M25.511 Pain in right shoulder 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 Office Visit 07/22/2015 10:30a [facility] Gin Alvarado Z95.0 Presence of Of V[employer] Signal Officer M.D. cardiac pacemaker I48.2 Chronic atrial fibrillation R06.02 Shortness of breath R61 Generalized hyperhidrosis G47.33 Obstructive sleep apnea (adult) (pediatric) Office Visit 01/21/2015 11:00a [facility] Gin Alvarado, 780.4 Dizziness & Of V/[employer] Signal Officer M.D. Giddiness V45.01 Cardiac Pacemaker In Situ Postsurgical 427.31 Atrial Fibrillation Office Visit 06/01/2014 11:15a [place] Gin Alvarado, 427.31 Atrial Cardiology Of M.D. Fibrillation [facility] V45.01 Cardiac Pacemaker In Situ Postsurgical 786.59 Pain Chest Other Office Visit 04/14/2014 9:00a [place] Gin Alvarado 427.31 Atrial Cardiology Of M.D. Fibrillation [facility] V45.01 Cardiac Pacemaker In Situ Postsurgical 786.59 Pain Chest Other Office Visit 10/05/2013 8:45a [place] Gin Alvarado 427.31 Atrial Cardiology Of M.D. Fibrillation [facility] V45.01 Cardiac Pacemaker In Situ Postsurgical 446.4 [place] Granulomatosis 786.2 Cough Office Visit 06/22/2013 10:15a [place] Alvarado, 427.31 Atrial Cardiology Of M.D. Fibrillation [facility] V45.01 Cardiac Pacemaker In Situ Postsurgical 786.09 Dyspnea & Respiratory Abnormalities Other 786.59 Pain Chest Other 782.1 Rash & Other Nonspec Skin Eruption Office Visit 05/25/2013 Orthopedic Walter 250.60 Diabetes W/ 11:00a Services Of Pili Farooq Neurological C.M.A. Manifestations Type II Controlled 719.47 Pain Joint Ankle & Foot 713.5 Arthropathy W/ Neurological Disorders Office Visit 05/05/2013 Rheumatology Ricardo Thompson, 446.4 [place] 11:40a Services Of [facility] Pili Granulomatosis 338.4 Chronic Pain Syndrome 724.02 Spinal Stenosis, Lumbar Region, W/O Neurogenic Claudication 250.60 Diabetes W/ Neurological Manifestations Type II Controlled Office Visit 04/01/2013 Rheumatology Zsofia 446.4 [place] 2:00p Services Of [facility] JOS Blakely Granulomatosis 338.4 Chronic Pain Syndrome V58.69 Medications Correction (Current) Use Encounter 354.0 Carpal Tunnel Syndrome 250.60 Diabetes W/ Neurological Manifestations Type II Controlled 453.6 Venous Embolism&Thrombosis,Superficial Vessels Lower Extremi Office Visit 01/01/2013 Fidel Prado, 250.60 Diabetes W/ 11:30a Neurologic Pili Neurological Services Of [facility] Manifestations Type II Controlled 357.2 Polyneuropathy In Diabetes 724.02 Spinal Stenosis, Lumbar Region, W/O Neurogenic Claudication 728.87 Muscle Weakness Generalized Office Visit 12/05/2012 Rheumatology Ricardo Thompson, 446.4 [place] 2:20p Services Of Jerry Alejandre Granulomatosis 338.4 Chronic Pain Syndrome Office Visit 12/02/2012 Mauro Alvarado, 786.09 Dyspnea & 10:45a Cardiology Of M.D. Respiratory V/Stol Landing Signal Officer Abnormalities Other 786.59 Pain Chest Other 787.02 Nausea Alone 401.9 Hypertension Unspec Office Visit 10/02/2012 [place] Kadie Prado, 250.60 Diabetes W/ 1:00p Neurologic M.D. Neurological Services Of [facility] Manifestations Type II Controlled 357.2 Polyneuropathy In Diabetes 724.02 Spinal Stenosis, Lumbar Region, W/O Neurogenic Claudication 446.4 We[place]ers Granulomatosis Office Visit 08/20/2012 9:00a [place] Neurologic Kadie Prado, 356.9 Neuropathy Services Of V/Stol Landing Signal Officer Pili Peripheral Hereditary Idiopathic Unspec 724.02 Spinal Stenosis, Lumbar Region, W/O Neurogenic Claudication Office Visit 08/06/2012 9:45a Mauro Alvarado, 427.31 Atrial Cardiology Of M.D. Fibrillation [facility] 786.09 Dyspnea & Respiratory Abnormalities Other Office Visit 06/27/2012 12:00p Mauro Alvarado 427.31 Atrial Cardiology Of M.D. Fibrillation V/Stol Landing Signal Officer AT [facility] [place] 786.05 Shortness Of Breath Office 08/10/2011 Orthopedic Pricilla 354.0 Carpal Tunnel Visit 8:45a Services Of Pili Rolon Syndrome C.M.A. Office 04/16/2011 Orthopedic [place] 354.0 Carpal Tunnel Visit 10:30a Services Of Pili Rolon Syndrome C.M.A. 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 Fibrillation Hospitalists Office Visit 06/05/2009 [facility] Chelo 530.81 Esophageal Reflux 2:15a sarah Tim M.D. Hospitalists 786.50 Pain Chest Unspec 790.99 Blood Examination Other Nonspecific Findings 427.31 Atrial Fibrillation Office Visit 06/04/2009 12:45a [facility] Lewis Landis 786.50 Pain Chest Assoc,sarah Nguyen M.D. Unspec Hospitalists Hospitalist 530.10 Esophagitis Unspec 446.4 [place] Granulomatosis Plan of Treatment Future Appointment(s):12/02/2018 10:45 am - Jemal Condon MD at [facility] M..12/10/2018 6:00 am - Remote Device Checks at [place] [facility]11/04/2018 - Jemal Condon, MDS92.422D Displaced fracture of distal phalanx of left great toe, subsNew Xrays:Toe Left Great, Ordered: Follow up:Follow Up: 4 weeks
[2018-11-27] MEDS ORDERED: ceFAZolin 1 GM ADVAN(*) 1 GM in NS 0.9% 50 ML* 50 ML IVPB ONE (15:53)
--- NOTE | 2018-11-27 16:12 | ED ---
Lower Extremity - HPI Summary HPI Summary: Patient is a 63-year-old female who presents emergency department for injury to her right great toe that occurred just prior to arrival. Patient notes she has a history of diabetes and peripheral neuropathy. Patient states she tripped walking today and injured right great toe. Patient denies head injury, loss of consciousness, lightheadedness, dizziness. Patient states that she had laceration injury to same to a few years ago. Patient states she is currently following with Dr. Lyons ortho., for a similar injury on her left foot. Patient states that her distal great toe is "hanging off" which patient states this happened before. Symptoms are moderate in severity. No current modifying factors.. - History of Current Complaint Chief Complaint: EDExtremityLower Stated Complaint: RIGHT TOE INJURY PER PT Time Seen by Provider: 11/27/18 14:44 Hx Obtained From: Patient Pain Intensity: 0 - Allergies/Home Medications Allergies/Adverse Reactions: Allergies Allergy/AdvReac Type Severity Reaction Status Date / Time albuterol Allergy See Comment Verified 11/27/18 14:34 codeine Allergy GI Upset Verified 11/27/18 14:34 hydrocodone Allergy GI Upset Verified 11/27/18 14:34 metformin Allergy Nausea Verified 11/27/18 14:34 pregabalin [From Lyrica] Allergy Altered Verified 11/27/18 14:34 Mental Status Sulfa (Sulfonamide Allergy Nausea Verified 11/27/18 14:34 Antibiotics) sulfamethoxazole Allergy Nausea Verified 11/27/18 14:34 [From Bactrim] trimethoprim [From Bactrim] Allergy Nausea Verified 11/27/18 14:34 PMH/Surg Hx/FS Hx/Imm Hx Previously Healthy: Yes Endocrine/Hematology History: Reports: Hx Anticoagulant Therapy, Hx Diabetes Cardiovascular History: Reports: Hx Angina, Hx Embolism, Hx Hypercholesterolemia , Hx Hypertension, Hx Pacemaker/ICD - put in 2010 Denies: Hx Coronary Artery Disease, Hx Myocardial Infarction, Hx Valvular Heart Disease Respiratory History: Reports: Other Respiratory Problems/Disorders - wegeners granulomatosis Denies: Hx Asthma, Hx Chronic Obstructive Pulmonary Disease (COPD) GI History: Reports: Hx Gall Bladder Disease, Hx Gastroesophageal Reflux Disease Musculoskeletal History: Reports: Hx Arthritis, Hx Back Problems Sensory History: Reports: Hx Contacts or Glasses Denies: Hx Cataracts, Hx Hearing Aid, Hx Hearing Problem, Other Sensory Impairments Opthamlomology History: Reports: Hx Contacts or Glasses Denies: Hx Cataracts, Other Sensory Impairments Psychiatric History: Reports: Hx Anxiety, Hx Depression - Cancer History Cancer Type, 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 - Surgical History Surgery Procedure, Year, and Place: CHOLECYSTECTOMY, JAMES, SCAR TISSUE REMOVAL - Immunization History Date of Tetanus Vaccine: 2017 Date of Influenza Vaccine: 07/04/2017 Infectious Disease History: No Infectious Disease History: Reports: Hx Shingles Denies: Hx Clostridium Difficile, Hx Hepatitis, Hx Human Immunodeficiency Virus (HIV), Hx of Known/Suspected MRSA, Hx Tuberculosis, Hx Known/Suspected VRE , Hx Known/Suspected VRSA, History Other Infectious Disease, Traveled Outside the [place] in Last 30 Days - Family History Known Family History: Positive: Diabetes, Non-Contributory - Social History Occupation: Employed Full-time, Retired Alcohol Use: None Hx Substance Use: No Substance Use Type: Reports: None Hx Tobacco Use: No Smoking Status (MU): Never Smoked Tobacco Have You Smoked in the Last Year: No Review of Systems Positive: Other - injury right great toe All Other Systems Reviewed And Are Negative: Yes Physical Exam Triage Information Reviewed: Yes Vital Signs On Initial Exam: Initial Vitals Temp Pulse Resp BP Pulse Ox 98 F 79 18 115/78 97 11/27/18 14:34 11/27/18 14:34 11/27/18 14:34 11/27/18 14:34 11/27/18 14:34 Vital Signs Reviewed: Yes Appearance: Positive: Well-Appearing - Pt. sitting in chair in NAD. Daughter present. Skin: Positive: Warm, Dry Head/Face: Positive: Normal Head/Face Inspection Eyes: Positive: Normal, EOMI Neck: Positive: Supple Musculoskeletal: Positive: Other - 2 cm transverse laceration noted over the PIP joint of right great toe with bone exposed. Neurological: Positive: Normal, CN Intact II-III Psychiatric: Positive: Affect/Mood Appropriate Procedures - Laceration/Wound Repair 1 Location: lower extremity Description: Linear Length, Depth and Shape: 2cm Betadine Prep?: Yes Laceration/Wound Explored: clean Closure: Single Layer Suture Type: Nylon Number of Sutures: 4 Layer Closure?: No Sterile Dressing Applied?: Yes Diagnostics - Vital Signs Vital Signs Temp Pulse Resp BP Pulse Ox 11/27/18 14:34 98 F 79 18 115/78 97 - Laboratory Lab Statement: Any lab studies that have been ordered have been reviewed, and results considered in the medical decision making process. Lower Extremity Course/Dx - Course Course Of Treatment: Pt. presenting for likely open fracture of right great digit of foot. Pt. given a dose of IV ancef. Wound soaked in betadine. Foot xray read per radiolgoy: IMPRESSION: Medial angulation of the distal phalanx of the right great toe with suggestion. of a fracture at the proximal end of the right first toe distal phalanx. Wound was extensively irrigated and cleaned. Toe was reduced and loosely closed. Post op shoe placed. Advised pt. to call Dr. Lyons's office tomorrow for an apt. tomorrow. Keflex rx. To return to ER for fever, redness, swelling. Pt. and daughter understand and agree with plan. - Diagnoses Differential Diagnosis/HQI/PQRI: Positive: Dislocation, Sprain, Strain Provider Diagnoses: Open toe fracture, Open dislocation of toe joint Discharge - Sign-Out/Discharge Documenting (check all that apply): Patient Departure Patient Received Moderate/Deep Sedation with Procedure: No - Discharge Plan Condition: Improved Disposition: HOME Prescriptions: Cephalexin CAP* [Keflex CAP*] 500 mg PO QID 10 Days #40 cap Patient Education Materials: Care For Your Stitches (ED), Toe Fracture (ED) Referrals: Jemal Condon MD [Medical Doctor] - Additional Instructions: Call Dr. Lyons's office tomorrow morning for an appointment tomorrow Keep wound clean and dry Take antibiotics as directed Return to ER for fever, redness, swelling or drainage from wound - Billing Disposition and Condition Condition: IMPROVED Disposition: Home
[2018-11-27 17:33] VITALS: BP 108/63
== END 2018-11-27 17:32 | disposition home or self-care (01) ==
LOC: ED 14:31
DX: S92.401B Displaced unspecified fracture of right great toe, initial encounter for open fracture (principal); S93.104A Unspecified dislocation of right toe(s), initial encounter; W01.0XXA Fall on same level from slipping, tripping and stumbling without subsequent striking against object, initial encounter; Y92.9 Unspecified place or not applicable; Z88.2 Allergy status to sulfonamides; Z79.01 Long term (current) use of anticoagulants; E11.9 Type 2 diabetes mellitus without complications; Z88.6 Allergy status to analgesic agent; K21.9 Gastro-esophageal reflux disease without esophagitis
CPT/HCPCS: 12001; 96365; 99283; J0690

== ENCOUNTER 2018-11-29 19:54 | Inpatient (IN) | payer MEDICARE, OTHER ==
--- NOTE | 2018-11-29 20:48 | ED ---
Lower Extremity - HPI Summary HPI Summary: This patient is a 63 year old F presenting to [facility] from Urgent Care accompanied by family with a chief complaint of a red, swollen, and draining right great toe wound since this afternoon. Patient reports a recent injury to the right toe on 11/27/18 resulting in an open fracture of the distal phalanx. Patient denies pain due to neuropathy secondary to DM. Denies fever. Patient has been taking Keflex at home. - History of Current Complaint Chief Complaint: EDExtremityLower Stated Complaint: WELL NOW THINKS BONE IS INFECTED PER PT Time Seen by Provider: 11/29/18 20:42 Hx Obtained From: Patient Mechanism Of Injury: Other - previous fracture Onset/Duration: Hours Pain Intensity: 0 Pain Scale Used: 0-10 Numeric Timing: Lasting Hours Location: Is Discrete @ - right great toe Associated Signs And Symptoms: Positive: Swelling, Redness Alleviating Factor(s): Nothing Related History: Other - recent injury, neuropathy, DM, at home abx - Allergies/Home Medications Allergies/Adverse Reactions: Allergies Allergy/AdvReac Type Severity Reaction Status Date / Time albuterol Allergy See Comment Verified 11/29/18 20:00 codeine Allergy GI Upset Verified 11/29/18 20:00 hydrocodone Allergy GI Upset Verified 11/29/18 20:00 metformin Allergy Nausea Verified 11/29/18 20:00 pregabalin [From Lyrica] Allergy Altered Verified 11/29/18 20:00 Mental Status Sulfa (Sulfonamide Allergy Nausea Verified 11/29/18 20:00 Antibiotics) sulfamethoxazole Allergy Nausea Verified 11/29/18 20:00 [From Bactrim] trimethoprim [From Bactrim] Allergy Nausea Verified 11/29/18 20:00 PMH/Surg Hx/FS Hx/Imm Hx Endocrine/Hematology History: Reports: Hx Anticoagulant Therapy, Hx Diabetes Cardiovascular History: Reports: Hx Angina, Hx Embolism, Hx Hypercholesterolemia , Hx Hypertension, Hx Pacemaker/ICD - put in 2010 Denies: Hx Coronary Artery Disease, Hx Myocardial Infarction, Hx Valvular Heart Disease Respiratory History: Reports: Other Respiratory Problems/Disorders - wegeners granulomatosis Denies: Hx Asthma, Hx Chronic Obstructive Pulmonary Disease (COPD) GI History: Reports: Hx Gall Bladder Disease, Hx Gastroesophageal Reflux Disease Musculoskeletal History: Reports: Hx Arthritis, Hx Back Problems Sensory History: Reports: Hx Contacts or Glasses Denies: Hx Cataracts, Hx Hearing Aid, Hx Hearing Problem, Other Sensory Impairments Opthamlomology History: Reports: Hx Contacts or Glasses Denies: Hx Cataracts, Other Sensory Impairments Psychiatric History: Reports: Hx Anxiety, Hx Depression - Cancer History Cancer Type, 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 - Surgical History Surgery Procedure, Year, and Place: CHOLECYSTECTOMY, JAMES, SCAR TISSUE REMOVAL - Immunization History Date of Tetanus Vaccine: 2017 Date of Influenza Vaccine: 07/04/2017 Infectious Disease History: Yes Infectious Disease History: Reports: Hx Shingles Denies: Hx Clostridium Difficile, Hx Hepatitis, Hx Human Immunodeficiency Virus (HIV), Hx of Known/Suspected MRSA, Hx Tuberculosis, Hx Known/Suspected VRE , Hx Known/Suspected VRSA, History Other Infectious Disease, Traveled Outside the [place] in Last 30 Days - Family History Known Family History: Positive: Diabetes - Social History Alcohol Use: None Hx Substance Use: No Substance Use Type: Reports: None Hx Tobacco Use: No Smoking Status (MU): Never Smoked Tobacco Have You Smoked in the Last Year: No Review of Systems Negative: Fever Positive: Other - redness and swelling at wound great R toe All Other Systems Reviewed And Are Negative: Yes Physical Exam - Summary Physical Exam Summary: Appearance: Well-appearing, Well-nourished, lying in bed comfortably Skin: Warm, dry, no obvious rash Eyes: sclera anicteric, no conjunctival pallor ENT: mucous membranes moist, pharynx appears normal Neck: Supple, nontender Respiratory: Clear to auscultation, no signs of respiratory distress Cardiovascular: Normal S1, S2. No murmurs. Normal distal pulses in tibial and radial bilaterally. Abdomen: Soft, nontender, normal active bowel sounds present Musculoskeletal: Strength/ROM Intact Right great toe diffusely erythematous and warm. Suture line looks clean and dry but patient family states its been draining Neurological: A&Ox3, awake and alert, mentation is normal, speech is fluent and appropriate Psychiatric: affect is normal, does not appear anxious or depressed Triage Information Reviewed: Yes Vital Signs On Initial Exam: Initial Vitals Temp Pulse Resp BP Pulse Ox 98.4 F 76 16 118/82 96 11/29/18 19:57 11/29/18 19:57 11/29/18 19:57 11/29/18 19:57 11/29/18 19:57 Vital Signs Reviewed: Yes Diagnostics - Vital Signs Vital Signs Temp Pulse Resp BP Pulse Ox 11/29/18 19:57 98.4 F 76 16 118/82 96 - Laboratory Result Diagrams: 11/29/18 20:47 11/29/18 20:47 Lab Statement: Any lab studies that have been ordered have been reviewed, and results considered in the medical decision making process. - Radiology R Toe XR Radiology Interpretation Completed By: ED Physician Summary of Radiographic Findings: No definite fracture. Lower Extremity Course/Dx - Course Course Of Treatment: 63 year old F presenting with a red, swollen, and draining right great toe wound since this afternoon. Patient reports a recent injury to the right toe on 11/27/18 resulting in an open fracture of the distal phalanx and has been taking oral abx for the past three days. Great right toe is diffusely erythematous and warm. Suture line looks clean and dry but patient family states its been draining Bloodwork obatined revealing: blood glucose 213 , RBC 5.04, Hct 43, BUN/creatinine 22.2, C-Reactive 13.04, Globulin 4.2. No definite fracture of the great right toe; previous reports of fracture reviewed. Case discussed with Dr. Constantino, ortho, who recommends suture removal and coverage to allow for drainage. Sutures are removed and wound is covered with dressing. Case discussed with shyla Mary, who agrees to admission. - Diagnoses Provider Diagnoses: Osteomyelitis of toe of right foot - Physician Notifications Discussed Care Of Patient With: Mya Constantino - orthopedics Time Discussed With Above Provider: 20:56 Instructed by Provider To: Other - remove sutures to allow for draining and cover. Patient is admitted by Dr. Nguyen, hospitalist. Discharge - Sign-Out/Discharge Documenting (check all that apply): Patient Departure - admit Patient Received Moderate/Deep Sedation with Procedure: No - Discharge Plan Condition: Fair Disposition: ADMITTED TO [facility] Referrals: Long Calderón MD [Primary Care Provider] - - Billing Disposition and Condition Condition: FAIR Disposition: Admitted to [facility] - Attestation Statements Document Initiated by Scribe: Yes Documenting Scribe: Sera Mitchell Provider For Whom Scribe is Documenting (Include Credential): Leonardo Portillo MD Scribe Attestation: Sera Durham, scribed for Leonardo Portillo MD on 11/29/18 at 2332. Scribe Documentation Reviewed: Yes Provider Attestation: The documentation as recorded by the scribe, Sera Mitchell accurately reflects the service I personally performed and the decisions made by me, Leonardo Portillo MD Status of Scribe Document: Viewed
[2018-11-29 20:53] LABS: ABS Basophils 0.1 10^3/ul (0-0.2); ABS Eosinophils 0.1 10^3/ul (0-0.6); ABS Lymphocytes 3.5 10^3/ul (1.0-4.8); ABS Monocytes 0.7 10^3/ul (0-0.8); ABS Neutrophils 4.7 10^3/ul (1.5-7.7); ABS Nucleated RBC 0 10^3/ul; Eosinophil % 1.3 %; Hematocrit 43 % (33-41); Hemoglobin 14.1 g/dL (12.0-16.0); Lymphocyte % 38.4 %; Mean Corpuscular HGB Conc 33 g/dL (31-36); Mean Corpuscular Hemoglobin 28 pg (27-31); Mean Corpuscular Volume 85 fL (80-97); Mean Platelet Volume 7.6 fL (7.4-10.4); Nucleated Red Blood Cells % 0.1; Platelet Count 301 10^3/uL (150-450); Red Blood Count 5.04 10^6 /uL (3.70-4.87); Red Cell Distribution Width 15 % (10.5-15); White Blood Count 9.1 10^3/uL (3.5-10.8)
[2018-11-29 21:10] LABS: BUN/Creatinine Ratio 22.2 (8-20); C Reactive Protein 13.04 mg/L (<8.01); Calcium 9.7 mg/dL (8.6-10.3); EGFR African American 86.4 (>60); EGFR Non-African American 71.4 (>60); Globulin 4.2 g/dL (2-4); Potassium 3.8 mmol/L (3.5-5.0); Total Bilirubin 0.5 mg/dL (0.2-1.0); Total Protein 8.2 g/dL (6.4-8.9)
[2018-11-29 22:13] LABS: Urine Appearance Clear; Urine Bacteria Absent (Absent); Urine Bilirubin Negative (Negative); Urine Blood 1+ (Negative); Urine Color Straw; Urine Glucose 3+(>=500 mg/dL) (Negative); Urine Ketones Negative (Negative); Urine Nitrite Negative (Negative); Urine Protein Negative (Negative); Urine Red Blood Cell Trace(0-2/hpf) (Absent); Urine Specific Gravity 1.008 (1.010-1.030); Urine Urobilinogen Negative (Negative); Urine White Blood Cell Absent (Absent)
--- NOTE | 2018-11-29 23:26 | ADMNOTE ---
Subjective Date of Service: 11/29/18 Interval History: HISTORY AND PHYSICAL PCP: Kaitlynn CC: RT great toe drainage HPI: Patient is 63 year old woman with history of type 2 diabetes, and peripheral neuropathy. Two days ago she tripped while walking with her walker, and had open fracture of RT great toe. She was seen in the ER, had the fracture reduced and the wound closed. She saw Dr. Lyons for follow-up. This morning the toe looked to be healing well, but this evening purulent drainage was noted. She returned to the ER for evaluation. The patient had a similar injury to the LT great toe about 2 months ago, and continues to see Dr. Lyons for follow-up of that also. 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, 2 children, daughter Timo is HCP, never smoker, no alcohol/drug use Past Medical History: Findings - pacemaker for tachy/arron, type 2 diabetes w/ gastroparesis and peripheral neuropathy, atrial fibrillation s/p ablation, h/o PE, hypertension, granulomatous polyangiitis, CHF; PSH: pacemaker and generator change, cholecystectomy, hysterectomy, L 2nd toe amp, AV node ablation Review of Systems - Measurements Intake and Output: Intake and Output Last 24 Hours 11/27/18 11/28/18 11/29/18 11/30/18 06:59 06:59 06:59 06:59 Weight 97.069 kg - Review of Systems Constitutional Symptoms: Negative: Fever Dermatology: Positive: Normal HEENT: Positive: Normal Eyes: Positive: Normal Thyroid: Positive: Normal Pulmonary: Positive: Normal Cardiology: Positive: Normal Gastroenterology: Positive: Normal Genital - Urinary: Positive: Normal Genitourinay - Female: Positive: Menopause Musculoskeletal: Negative: Joint Pain Endocrinology: Positive: Diabetes Mellitus Neurology: Positive: Numbness\Paresthesiae Psychiatry: Positive: Normal Objective Active Medications: Home Medications: Atenolol (Tenormin Tab*) 25 mg PO BID CLAUDIA Buspirone HCl (Buspar Tab*) 20 mg PO QPM CLAUDIA Canagliflozin (Invokana (Nf)) 300 mg PO DAILY CLAUDIA Furosemide (Lasix Tab*) 40 mg PO DAILY CLAUDIA Gabapentin (Neurontin Cap(*)) 300 mg PO TID CLAUDIA Keflex 500 mg PO QID Insulin Glargine (Toujeo Solostar Pen (Nf)) 42 unit SUBCUT BEDTIME CLAUDIA Lisinopril (Prinivil Tab*) 5 mg PO BID CLAUDIA Non-Formulary Medication (Victoza 3-Rodolfo) 1.8 units SUBCUT DAILY CLAUDIA Potassium Chloride (Klor Con Er Tab*) 40 meq PO DAILY CLAUDIA Prednisone (Deltasone Tab*) 5 mg PO DAILY CLAUDIA Warfarin Sodium (Coumadin Tab(*)) 2 mg PO EVERY OTHER DAY CLAUDIA; Protocol Warfarin Sodium (Coumadin Tab(*)) 4 mg PO EVERY OTHER DAY CLAUDIA; Protocol Vital Signs - 8 hr 11/29/18 19:57 Temperature 36.9 C Pulse Rate 76 Respiratory 16 Rate Blood Pressure 118/82 (mmHg) O2 Sat by Pulse 96 Oximetry Oxygen Devices in Use Now: None Appearance: alert, no distress Eyes: No Scleral Icterus Ears/Nose/Mouth/Throat: NL Teeth, Lips, Gums Neck: NL Appearance and Movements; NL JVP Respiratory: Symmetrical Chest Expansion and Respiratory Effort, Clear to Auscultation Cardiovascular: NL Sounds; No Murmurs; No JVD, RRR Abdominal: NL Sounds; No Tenderness; No Distention Lymphatic: No Cervical Adenopathy Extremities: No Edema Skin: - - RT great toe w/ 2 cm laceration dorsal, open, LT great toe erythematous, no open areas, LT 2nd toe amputated Neurological: Alert and Oriented x 3 Lines/Tubes/Other Access: Clean, Dry and Intact Peripheral IV Result Diagrams: 11/29/18 20:47 11/29/18 20:47 Diagnostic Imaging: RT great toe: fracture distal phalanx, proximal, lateral Assess/Plan/Problems-Billing Assessment: 63 year old w/ open fracture and contiguous infection of RT great toe, distal phalanx, who failed outpatient treatment - Patient Problems (1) Open fracture of right great toe with delayed healing Current Visit: Yes Status: Acute Priority: High Code(s): S92.401G - DISPLACED UNSP FX RIGHT GREAT TOE, SUBS FOR FX W DELAY HEAL SNOMED Code(s): 126713471 Comment: -Patient has not responded well to outpatient management, now requires admission for IV antibiotics and surgical consultation. -Started on IV cefazolin. -Dr. Constantino aware, she will ask Dr. Lyons to consult. -Patient is as risk of toe amputation if infection not controlled. (2) Type 2 diabetes mellitus with neurologic complication, with long-term current use of insulin Current Visit: Yes Status: Acute Priority: Medium Code(s): E11.49 - TYPE 2 DIABETES W OTH DIABETIC NEUROLOGICAL COMPLICATION; Z79.4 - RETIREMENT (CURRENT ) USE OF INSULIN SNOMED Code(s): 43598150 Comment: -Diabetes will require continued present doses of insulin, with sliding scale coverage. -Will check A1c for overall control. (3) Wegeners granulomatosis Current Visit: Yes Status: Acute Priority: Medium Code(s): M31.30 - LEANN'S GRANULOMATOSIS WITHOUT RENAL INVOLVEMENT SNOMED Code(s): 560001750 Comment: -Patient is immunosuppressed and may have poor wound healing due to steroid use and underlying disease. (4) History of pulmonary embolism Current Visit: Yes Status: Acute Priority: Low Code(s): Z86.711 - PERSONAL HISTORY OF PULMONARY EMBOLISM SNOMED Code(s): 312114530 Comment: -Will have SCDs and continued warfarin for DVT/PE prophylaxis Status and Disposition: inpatient
[2018-11-30] MEDS ORDERED: busPIRone TAB* 10 MG PO SCH (01:30)
[2018-11-30] MEDS: busPIRone TAB* 10 MG PO SCH ×2 (01:36→23:11)
[2018-11-30] MEDS: Atenolol TAB* 25 MG PO SCH ×3 (01:37→23:10)
[2018-11-30] MEDS: Gabapentin CAP(*) 300 MG PO SCH ×4 (01:37→23:10)
[2018-11-30] MEDS: Lisinopril TAB* 5 MG PO SCH ×3 (01:37→23:10)
[2018-11-30] MEDS: ceFAZolin 1 GM in Dextrose (*) 1 GM/50 ML BAG IVPB SCH ×2 (01:55→07:56)
[2018-11-30 05:41] LABS: INR 1.99 (0.77-1.02)
[2018-11-30] MEDS ORDERED: Vancomycin(*) 1,500 MG in NS 0.9% 250 ML* 250 ML IVPB ONE (08:30)
[2018-11-30] MEDS ORDERED: PAK SUBCUT SCH (09:00)
[2018-11-30] MEDS ORDERED: VICTOZA SUBCUT SCH (09:00)
[2018-11-30] MEDS ORDERED: CANAGLIFLOZIN 100 MG PO SCH (09:00)
[2018-11-30] MEDS ORDERED: Furosemide TAB* 40 MG PO SCH (09:00)
[2018-11-30] MEDS: Potassium Chlor TAB* 20 MEQ TAB.ER PO SCH (09:25)
[2018-11-30] MEDS: predniSONE TAB* 5 MG PO SCH (09:25)
[2018-11-30] MEDS: Acetaminophen TAB* 325 MG PO PRN (09:25)
[2018-11-30] MEDS: Cefepime 1 GM in Dextrose(*) 1 GM/50 ML BAG IV SCH ×2 (09:25→20:01)
--- NOTE | 2018-11-30 09:53 | PN ---
Subjective Date of Service: 11/30/18 Interval History: HOSPITALIST PROGRESS NOTE Patient seen and examined at bedside. Care reviewed and d/w Dori Sauceda RN. She offers no complaints at this time. Denies pain, but has no sensation on her feet. Family History: Unchanged from Admission Social History: Unchanged from Admission Past Medical History: Unchanged from Admission Objective Active Medications: Acetaminophen (Tylenol Tab*) 650 mg PO Q6H PRN PRN Reason: pain/fever Last Admin: 11/30/18 09:25 Dose: 650 mg Atenolol (Tenormin Tab*) 25 mg PO 0900,2300 [facility] Last Admin: 11/30/18 09:33 Dose: 25 mg Buspirone HCl (Buspar Tab*) 20 mg PO 2300 [facility] Last Admin: 11/30/18 01:36 Dose: 20 mg Canagliflozin (Invokana (Nf)) 300 mg PO DAILY [facility] Last Admin: 11/30/18 09:28 Dose: Not Given Furosemide (Lasix Tab*) 40 mg PO DAILY [facility] Last Admin: 11/30/18 09:24 Dose: 40 mg Gabapentin (Neurontin Cap(*)) 300 mg PO 0900,1400,2300 [facility] Last Admin: 11/30/18 09:27 Dose: Not Given Cefepime HCl (Maxipime 1 Gm In Dextrose Duplex (*)) 1 gm in 50 mls @ 100 mls/ hr IV Q12H [facility] Last Admin: 11/30/18 09:25 Dose: 100 mls/hr Vancomycin HCl 1,500 mg/ (Sodium Chloride) 250 mls @ 166.667 mls/hr IVPB ONCE ONE Stop: 11/30/18 09:59 Vancomycin HCl / Sodium (Chloride) 250 mls @ 166.667 mls/hr IVPB .CONTINUE PROTOCOL [facility]; Protocol Insulin Glargine (Lantus(*)) 33.6 units SUBCUT BEDTIME [facility] Lisinopril (Prinivil Tab*) 5 mg PO 0900,2300 [facility] Last Admin: 11/30/18 09:32 Dose: 5 mg (Victoza 3-Rodolfo 1.8 (Mg)) 0 units SUBCUT DAILY [facility] Last Admin: 11/30/18 09:29 Dose: Not Given Potassium Chloride (Klor Con Er Tab*) 40 meq PO DAILY [facility] Last Admin: 11/30/18 09:25 Dose: 40 meq Prednisone (Deltasone Tab*) 5 mg PO DAILY [facility] Last Admin: 11/30/18 09:25 Dose: 5 mg Warfarin Sodium (Coumadin Tab(*)) 2 mg PO EVERY OTHER DAY@1700 [facility]; Protocol Warfarin Sodium (Coumadin Tab(*)) 4 mg PO EVERY OTHER DAY@1700 [facility]; Protocol Vital Signs - 8 hr 11/30/18 11/30/18 11/30/18 03:16 03:20 05:50 Temperature 98.1 F Pulse Rate 72 63 Respiratory 18 18 Rate Blood Pressure 94/48 111/66 (mmHg) O2 Sat by Pulse 96 97 Oximetry 11/30/18 07:47 Temperature 97.7 F Pulse Rate 62 Respiratory 14 Rate Blood Pressure 94/51 (mmHg) O2 Sat by Pulse 98 Oximetry Oxygen Devices in Use Now: None Appearance: Elderly lady lying in bed in NAD. Eyes: No Scleral Icterus Ears/Nose/Mouth/Throat: Mucous Membranes Moist Neck: Trachea Midline Respiratory: Symmetrical Chest Expansion and Respiratory Effort, Clear to Auscultation Cardiovascular: RRR - Normal S1 and S2 Extremities: - - Right hallux CDI with no erythema spreading to dorsum of the foot. Old burn scar on the dorsum. Neurological: Alert and Oriented x 3, NL Muscle Strength and Tone Result Diagrams: 11/29/18 20:47 11/29/18 20:47 Diagnostic Imaging: RT great toe: fracture distal phalanx, proximal, lateral Assess/Plan/Problems-Billing Assessment: 63 yo F with PMH of type 2 DM with diabetic gastroparesis and peripheral neuropathy, tachy arron syndrome s/p pacer, Afib s/p ablation, PE, HTN, granulomatous polyangiitis, diastolic CHF, who presented to ED after a fall with right hallux open fracture, now with infection. - Patient Problems (1) Open fracture of right great toe with delayed healing Comment: - Patient has not responded well to outpatient management, now requires admission for IV antibiotics and surgical consultation. - Will broaden antibiotic coverage with Vanco/Cefepime for now. - Awaiting Ortho evaluation. (2) Type 2 diabetes mellitus with neurologic complication, with long-term current use of insulin Comment: - Continue FS ACHS, long acting insulin and Lispro SS. (3) Wegeners granulomatosis Comment: - Continue prednisone. (4) History of pulmonary embolism Comment: - Continue Warfarin. (5) Afib Comment: - Continue Atenolol and Warfarin. (6) Diastolic CHF Comment: - Last EF 55-60% in 06/25. - Stable. - Continue Atenolol and Furosemide. (7) DVT prophylaxis Comment: - Warfarin. (8) Full code status Status and Disposition: Inpatient.
[2018-11-30] MEDS ORDERED: Vancomycin per Pharmacy* NOTE FOLLOW UP PRN (13:37)
[2018-11-30] MEDS ORDERED: Dextrose 50% Syringe 50 ML* 25 GM/50 ML SYRINGE IV PUSH PRN (13:57)
--- NOTE | 2018-11-30 14:16 | CONS ---
ORTHOPEDIC CONSULT NOTE: DATE OF CONSULT: 11/30/18 Thank you for this orthopedic consultation. CHIEF COMPLAINT: Right great toe pain and drainage. HISTORY OF PRESENT ILLNESS: Ms. Leon is a 63-year-old diabetic female with peripheral neuropathy. On 11/27/18, she tripped and developed an open distal phalanx fracture of the right great toe with a laceration dorsally. She had the wound washed and closed in the emergency room. She saw Dr. Condon for a followup and was told that everything was healing well. On 11/29/18, she developed purulent drainage and increased erythema in the great toe. She came to the emergency room and was admitted for infection. She has been on IV cefazolin and does believe that the erythema and drainage have significantly improved. The emergency room doctor removed the sutures that were there. The patient reports she has poor sensation in that toe, therefore minimal pain. PAST MEDICAL HISTORY: Erickson's granulomatosis, history of pulmonary embolism, blood clots, diabetes with peripheral neuropathy, recent open right great toe fracture, hypertension, atrial fibrillation, as well as tachy-arron syndrome. PAST SURGICAL HISTORY: Pacemaker placement for tachy-arron syndrome, ablation for AFib, cholecystectomy, hysterectomy, left second toe amp, AV node ablation. HOME MEDICATIONS: 1. Atenolol 25 mg p.o. b.i.d. 2. Buspirone 20 mg p.o. q.p.m. 3. Invokana 300 mg p.o. daily. 4. Lasix 40 mg p.o. daily. 5. Gabapentin 300 mg p.o. t.i.d. 6. Keflex 500 mg p.o. q.i.d. 7. Insulin pen 42 units subcutaneously at bedtime. 8. Lisinopril 5 mg p.o. b.i.d. 9. Potassium chloride 40 mEq p.o. daily. 10. Prednisone 5 mg p.o. daily. 11. Coumadin 2 or 4 mg every other day. ALLERGIES: No known drug allergies. FAMILY HISTORY: Maternal, diabetes, heart disease, COPD; paternal, COPD. 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 She has 2 children. Her daughter, Meagan, is her healthcare proxy. She is . No tobacco, alcohol, or recreational drug use. Normally ambulates independently. REVIEW OF SYSTEMS: 14 systems reviewed with the patient today. Positive for right great toe laceration and drainage. Right great toe erythema. Negative for fevers, chills, chest pain, shortness of breath. Otherwise, the patient reports review of systems is negative or not relevant. PHYSICAL EXAM: General: The patient is a well-nourished female, in no apparent distress. Alert and oriented x3. Pleasant mood and appropriate affect. Vitals: Temperature 97.7, heart rate 62, blood pressure 94/51. HEENT: Atraumatic and normocephalic. Pupils equal and reactive to light. Chest: Unlabored breathing. Right Lower Extremity: The patient's skin has an open wound along the dorsal right great toe. This appears to be a skin tear along the dorsal great toe. There is no obvious drainage at this time. No obvious purulence from the MCP joint distally. There is erythema of the right great toe with some swelling. She has decreased sensation here, decreased sensation densely in a stocking distribution. 1+ DP pulse palpable. She can dorsiflex and plantarflex. EHL and FHL are intact. Otherwise, no open wounds or palpable lymph nodes along the lower extremity. DIAGNOSTIC STUDIES/LAB DATA: Radiographs: Multiple x-rays are reviewed, which show no obvious osteomyelitis. A small lateral fracture along the proximal phalanx of the great toe. Labs: White blood cell is 9.1, hematocrit is 43, platelets 301. INR is 1.99. Sodium 137, potassium 3.8, BUN and creatinine 18 and 0.81, glucose 213, C- reactive protein 13, alk phos 55. Urine positive for hyaline cast, glucose, blood. ASSESSMENT AND PLAN: Ms. Leon is a 63-year-old female with diabetes and peripheral neuropathy. Three days ago, she fractured the right great toe proximal phalanx and had a laceration in this region. The wound was closed and she did develop erythema with some purulent drainage. She has been admitted for under 24 hours. She feels the IV antibiotics have helped her significantly. At this time, I would not recommend any surgical intervention. She should continue the IV antibiotic for another 24 to 48 hours in my opinion. I have course deferred to the hospitalist group. I will alert Dr. Condon as this is his patient. Dr. Condon or Dr. Farooq, one of our foot and ankle specialists, will follow up on the patient tomorrow. Otherwise, she can follow up in clinic with Dr. Condon. She should have dressing changes as needed. I would recommend the postop shoe on at all times because this will hold the toe up and reapproximate the skin edges of the laceration. She can be weightbearing as tolerated. [id number]/[facility] #: [id number] EDGAR
[2018-11-30] MEDS ORDERED: Loperamide CAP* 2 MG PO PRN (15:40)
[2018-11-30] MEDS ORDERED: Warfarin TAB(*) 4 MG PO SCH (17:00)
[2018-11-30] MEDS: Insulin LISPRO* 1 UNITS UNIT SUBCUT SCH ×2 (17:28→21:14)
[2018-11-30] MEDS: Vancomycin(*) 1,000 MG in NS 0.9% 250 ML* 250 ML IVPB SCH (17:30)
[2018-11-30] MEDS: Insulin GLARGINE(*) 1 UNITS UNIT SUBCUT SCH (21:14)
[2018-12-01] MEDS: Vancomycin(*) 1,000 MG in NS 0.9% 250 ML* 250 ML IVPB SCH ×3 (02:29→21:57)
[2018-12-01] MEDS: Acetaminophen TAB* 325 MG PO PRN (02:32)
[2018-12-01 05:47] LABS: INR 1.54 (0.77-1.02)
[2018-12-01] MEDS: Insulin LISPRO* 1 UNITS UNIT SUBCUT SCH ×4 (08:48→21:06)
[2018-12-01] MEDS: Potassium Chlor TAB* 20 MEQ TAB.ER PO SCH ×2 (08:49→08:55)
[2018-12-01] MEDS: Furosemide TAB* 40 MG PO SCH (08:50)
[2018-12-01] MEDS: Lisinopril TAB* 5 MG PO SCH ×2 (08:50→23:11)
[2018-12-01] MEDS: predniSONE TAB* 5 MG PO SCH (08:50)
[2018-12-01] MEDS: Atenolol TAB* 25 MG PO SCH ×2 (08:50→23:10)
[2018-12-01] MEDS: Cefepime 1 GM in Dextrose(*) 1 GM/50 ML BAG IV SCH ×2 (08:52→20:42)
[2018-12-01] MEDS ORDERED: PTO - Liraglutide (NF) 18 MG/3 ML SUBCUT SCH (09:00)
[2018-12-01] MEDS: Gabapentin CAP(*) 300 MG PO SCH ×3 (09:02→23:20)
[2018-12-01] MEDS ORDERED: Vancomycin Trough Check NOTE FOLLOW UP ONE (09:30)
--- NOTE | 2018-12-01 13:19 | PN ---
PROGRESS NOTE: DATE OF SERVICE: 12/01/18 Ayanna is a very pleasant 63-year-old lady with some type 2 diabetes and peripheral neuropathy. She has had trouble with both big toes. She had an open fracture of the left, which has not been healing. It has been closed and noninfected, followed by my colleague. And 4 days ago she stubbed her right toe , had an open injury through the IP joint and was seen in the emergency room with an irrigation and closure. Then 2 days ago, she re-presented to the ER with some purulence and the stitches evidently were removed. She has been in the hospital for 48 hours and some IV antibiotics. Ayanna has family history, social history, medication history well outlined in the chart. She is comfortable in bed, no significant pain. She does not appear to be in any distress. She is afebrile. CRP has been non-impressive. The foot itself is warm with some decreased sensation generally. She has a transverse laceration at the IP joint, right great toe. There is no purulent drainage. No erythema. It is somewhat unstable; if I flex through this wound, it would open. Stitches have been removed. I am going to apply a Betadine dressing to this wound and I would think that we should observe it for another day or 2 before deciding whether she needs to have further surgical intervention. 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 [id number]/[facility] #: [id number] EDGAR
--- NOTE | 2018-12-01 14:09 | CONS ---
CONSULTATION REPORT: DATE OF ADMISSION: 11/29/18 DATE OF CONSULTATION: 12/01/18 PRIMARY CARE PROVIDER: Dr. Long Calderón. CONSULTING SERVICE: Infectious Disease. ATTENDING PROVIDER: Dr. Juan David Reynoso * (dictated by Tennille Hermosillo NP). REASON FOR CONSULTATION: Open toe fracture with infection. IMPRESSION: 1. Open right first toe fracture with associated cellulitis at the site of the open toe fracture. There is erythema. She has been afebrile. No leukocytosis on admitting labs. She was on cephalexin outpatient and since being hospitalized has been on cefepime and vancomycin. There does not really appear to be anything to culture at this time. Orthopedics has seen the patient in consultation with plans for one of the foot specialists to see the patient later today to determine if this requires surgery or not. She had her last tetanus shot on 05/27/18. 2. Recurrent fractures. This is the third time the patient has fractured toe. She is on chronic steroids, putting her at risk for decreased bone density and osteoporosis. 3. Erickson granulomatosis, on chronic steroid therapy. 4. Diabetes mellitus with peripheral neuropathy and gastroparesis. Hemoglobin A1c 9.1. 5. Hypertension. 6. Up to date tetanus vaccine. PLAN/RECOMMENDATIONS: Continue cefepime and vancomycin at this time for gram- negative and gram-positive coverage. We will hold off on anaerobic coverage for now. Vancomycin trough should be 10 to 15. Continue to follow labs. When she is discharged, Dr. Babcock or Dr. Calderón should consider working her up for possible osteoporosis in the setting of multiple fractures. HISTORY OF PRESENT ILLNESS: Ms. Leon is a 63-year-old female with past medical history significant for Erickson granulomatosis; PE; DVT; diabetes mellitus with gastroparesis; peripheral neuropathy; hypertension; atrial fibrillation; tachybrady syndrome, status post pacemaker placement, who states that while ambulating with her walker, she tripped resulting in an open fracture of her right great toe. She was seen in the emergency room on 11/27/18, when she had the fracture reduced and loosely closed and placed in a postop shoe. It was recommended that she call Dr. Condon's office for an appointment and she was placed on Keflex. She saw Dr. Condon in followup and the wound was felt to be healing well, but in the evening she developed purulent drainage and returned to emergency room for further evaluation. It is to note that she has previously fractured her left toe and previously fractured the right first toe in the past. Due to concern for failure of outpatient antibiotics, she was admitted to the hospital by hospitalist service. She denies fevers, chills, fatigue, shortness of breath, joint pain, muscle pain, rash, diarrhea, constipation, urinary symptoms such as urgency, frequency, dysuria. She denies recent travel. PAST MEDICAL HISTORY: 1. Erickson granulomatosis. 2. Pulmonary embolism. 3. DVT. 4. Diabetes mellitus with neuropathy and gastroparesis. 5. Hypertension. 6. Atrial fibrillation. 7. Tachybrady syndrome. PAST SURGICAL HISTORY: 1. Status post pacemaker insertion. 2. Status post cholecystectomy. 3. Status post hysterectomy. 4. Status post left second toe amputation. 5. Status post AV node ablation. MEDICATIONS: Home medications include: 1. Atenolol 25 mg by mouth twice daily. 2. Furosemide 40 mg by mouth daily. 3. Cephalexin 500 mg by mouth 4 times daily. 4. Invokana 300 mg by mouth daily. 5. Gabapentin 300 mg by mouth 3 times daily. 6. Toujeo SoloStar insulin 42 units subcutaneously at bedtime. 7. Lisinopril 5 mg by mouth twice daily. 8. Regular insulin 1 unit subcutaneously daily as per the sliding scale as needed. 9. Warfarin 2 mg by mouth every other day. 10. Victoza 1.8 units subcutaneously. 11. Potassium chloride 40 mEq by mouth daily. 12. Bupropion 20 mg by mouth every evening. 13. Warfarin 4 mg by mouth every other day. 14. Prednisone 5 mg by mouth daily. Hospital medications: 1. Acetaminophen 650 mg by mouth every 6 hours as needed for fever or pain. 2. Atenolol 25 mg by mouth twice daily. 3. Bupropion 20 mg by mouth daily. 4. Cefepime 1 g IV every 12 hours. 5. Dextrose 12.5 g IV push for fingersticks less than 60 as needed. 6. Furosemide 40 mg by mouth daily. 7. Gabapentin 300 mg by mouth 3 times daily. 8. Lantus insulin 33.6 units subcutaneously at bedtime. 9. Lispro sliding scale subcutaneously with meals and at bedtime. 10. Lisinopril 5 mg by mouth twice daily. 11. Loperamide 2 mg by mouth as needed for loose stools. 12. Potassium chloride 40 mEq by mouth daily. 13. Prednisone 5 mg by mouth daily. 14. Vancomycin 1000 mg IV every 8 hours. 15. Warfarin 2 mg by mouth every other day. 16. Warfarin 4 mg by mouth every other day. ALLERGIES: Albuterol, Lyrica, codeine, hydrocodone, metformin, and Bactrim cause nausea. FAMILY HISTORY: Mother and father with history of coronary artery disease. Father passed at age 44 from an AK. Mother with a history of diabetes mellitus. No family history of cancer. SOCIAL HISTORY: Denies alcohol, tobacco, or recreational drug use. REVIEW OF SYSTEMS: I performed a 10-point review of systems. All the pertinent positives and negatives are mentioned in the history of present illness. The remaining review of systems are negative. PHYSICAL EXAMINATION: Vital Signs: Temperature 97.4, heart rate 60, respiratory rate 16, O2 sat 97% on room air, blood pressure 116/69. General Appearance: Alert, pleasant, appears to be in no acute distress. Head: Normocephalic, atraumatic. ENT: Pupils equal, reactive to light. Extraocular movements are intact. Mucous membranes intact. Neck: Supple. No lymphadenopathy noted. Neurological: Cranial nerves II through XII are grossly intact. Cardiac: Regular rate and rhythm. S1, S2 present. No murmurs, rubs, or gallops heard. Respiratory: No accessory muscle use. Lungs are clear to auscultation bilateral. Abdomen: Bowel sounds present. Abdomen soft, nontender, nondistended. Extremities: No lower extremity edema. DP, PT pulses are 1+ and symmetric. Musculoskeletal: No clubbing or cyanosis noted. Exhibits good strength in all extremities. Psychological: Calm and cooperative. Skin: The right great toe has erythema at approximately 2 cm laceration without drainage at this time. DIAGNOSTIC STUDIES/LABORATORY DATA: From 11/29/18, sodium 137, potassium 3.8, chloride 101, CO2 26, BUN 18, creatinine 0.81, glucose 213. White blood cell count 9.1, hemoglobin 14.1, hematocrit 43, platelet count 301. Hemoglobin A1c 9.1. CRP 13.04. Please see impression and recommendations outlined above. Thank you for asking us to see Ms. Leon in consultation. We will continue to follow along. Plan has been discussed with Dr. Maegan Rosa with the hospital medicine team. TIME SPENT: Time spent for this consultation was approximately 45 minutes, greater than half of that was spent with the patient discussing medications, past medical history, the events leading to her arrival today, and performing a physical examination. The case has been discussed with the attending, Dr. Reynoso, who agrees with the plan of care. Reviewed by TENNILLE HERMOSILLO, JOS-C 12/02/182011 [id number]/[facility] #: [id number] Seen, examined, discussed with Deidra Hermosillo CATERING DRIVER I agree with her full note above. Impression/Recommendations: 1. Right toe fracture, open, complicated by cellulitis, continue vancomycin goal trough 10-15. Orthopedics evaluation pending. 2. Diabetes with neuropathy 3. Chronic corticosteroid use with multiple fractures, along with foot imaging suggests decreased bone density MTDD
--- NOTE | 2018-12-01 16:25 | PN ---
Subjective Date of Service: 12/01/18 Interval History: HOSPITALIST PROGRESS NOTE Patient seen and examined at bedside. Care reviewed and d/w Dori Sauceda RN. She feels better today. Toe erythema is much improved, no drainage. Family History: Unchanged from Admission Social History: Unchanged from Admission Past Medical History: Unchanged from Admission Objective Active Medications: Acetaminophen (Tylenol Tab*) 650 mg PO Q6H PRN PRN Reason: pain/fever Last Admin: 12/01/18 02:32 Dose: 650 mg Atenolol (Tenormin Tab*) 25 mg PO 0900,2300 [facility] Last Admin: 12/01/18 08:50 Dose: 25 mg Buspirone HCl (Buspar Tab*) 20 mg PO 2300 [facility] Last Admin: 11/30/18 23:11 Dose: 20 mg Dextrose (D50w Syringe 50 Ml*) 12.5 gm IV PUSH .FOR FS < 60 - SS PRN PRN Reason: FS < 60 Furosemide (Lasix Tab*) 40 mg PO DAILY [facility] Last Admin: 12/01/18 08:50 Dose: 40 mg Gabapentin (Neurontin Cap(*)) 300 mg PO 0900,1400,2300 [facility] Last Admin: 12/01/18 14:29 Dose: 300 mg Cefepime HCl (Maxipime 1 Gm In Dextrose Duplex (*)) 1 gm in 50 mls @ 100 mls/ hr IV Q12H [facility] Last Admin: 12/01/18 08:52 Dose: 100 mls/hr Vancomycin HCl 1,000 mg/ (Sodium Chloride) 250 mls @ 166.667 mls/hr IVPB Q12H [facility] Insulin Glargine (Lantus(*)) 33.6 units SUBCUT BEDTIME [facility] Last Admin: 11/30/18 21:14 Dose: 33 units Insulin Human Lispro (Humalog*) 0 units SUBCUT ACHS [facility]; Protocol Last Admin: 12/01/18 12:43 Dose: 4 units Lisinopril (Prinivil Tab*) 5 mg PO 0900,2300 [facility] Last Admin: 12/01/18 08:50 Dose: 5 mg Loperamide HCl (Imodium Cap*) 2 mg PO .SEE DIRECTIONS PRN PRN Reason: DIARRHEA Pharmacy Consult (Vancomycin Per Pharmacy*) 1 note FOLLOW UP . PRN PRN Reason: PER PROTOCOL Pharmacy Profile Note (Vancomycin Trough Check) 1 note FOLLOW UP ONCE ONE Stop: 12/03/18 09:31 Potassium Chloride (Klor Con Er Tab*) 40 meq PO DAILY [facility] Last Admin: 12/01/18 08:55 Dose: Not Given Prednisone (Deltasone Tab*) 5 mg PO DAILY [facility] Last Admin: 12/01/18 08:50 Dose: 5 mg Warfarin Sodium (Coumadin Tab(*)) 2 mg PO EVERY OTHER DAY@1700 [facility]; Protocol Warfarin Sodium (Coumadin Tab(*)) 4 mg PO EVERY OTHER DAY@1700 [facility]; Protocol Last Admin: 11/30/18 17:28 Dose: 4 mg Vital Signs - 8 hr 12/01/18 12/01/18 12/01/18 09:02 11:40 12:38 Temperature 97.2 F Pulse Rate 61 Respiratory 16 16 16 Rate Blood Pressure 100/56 (mmHg) O2 Sat by Pulse 100 Oximetry 12/01/18 14:29 Temperature Pulse Rate Respiratory 16 Rate Blood Pressure (mmHg) O2 Sat by Pulse Oximetry Oxygen Devices in Use Now: None Appearance: Pleasant lady sitting up in bed in NAD. Eyes: No Scleral Icterus Ears/Nose/Mouth/Throat: Mucous Membranes Moist Neck: Trachea Midline Extremities: - - Right hallux erythema is much improved, no discharge Neurological: Alert and Oriented x 3, NL Muscle Strength and Tone Result Diagrams: 11/29/18 20:47 11/29/18 20:47 Diagnostic Imaging: RT great toe: fracture distal phalanx, proximal, lateral Assess/Plan/Problems-Billing Assessment: 63 yo F with PMH of type 2 DM with diabetic gastroparesis and peripheral neuropathy, tachy arron syndrome s/p pacer, Afib s/p ablation, PE, HTN, granulomatous polyangiitis, diastolic CHF, who presented to ED after a fall with right hallux open fracture, now with infection. - Patient Problems (1) Open fracture of right great toe with delayed healing Comment: - Responding well. - Continue Vanco/Cefepime for 24h more. - Ortho evaluation appreciated - no plan for surgery at this time. (2) Type 2 diabetes mellitus with neurologic complication, with long-term current use of insulin Comment: - Continue FS ACHS, long acting insulin and Lispro SS. (3) Wegeners granulomatosis Comment: - Continue prednisone. (4) History of pulmonary embolism Comment: - Continue Warfarin. (5) Afib Comment: - Continue Atenolol and Warfarin. (6) Diastolic CHF Comment: - Last EF 55-60% in 06/25. - Stable. - Continue Atenolol and Furosemide. (7) DVT prophylaxis Comment: - Warfarin. - One dose Lovenox tonight as INR is subtherapeutic. (8) Full code status Status and Disposition: Inpatient.
[2018-12-01] MEDS ORDERED: Enoxaparin(*) 40 MG/0.4 ML SYR SUBCUT ONE (17:00)
[2018-12-01] MEDS ORDERED: Warfarin TAB(*) 2 MG PO SCH (17:00)
[2018-12-01] MEDS: Warfarin TAB(*) 5 MG PO SCH (17:30)
[2018-12-01] MEDS: Insulin GLARGINE(*) 1 UNITS UNIT SUBCUT SCH (21:06)
[2018-12-01] MEDS: busPIRone TAB* 10 MG PO SCH (23:21)
[2018-12-02] MEDS: Acetaminophen TAB* 325 MG PO PRN ×2 (05:34→18:32)
[2018-12-02 05:47] LABS: INR 1.66 (0.77-1.02)
--- NOTE | 2018-12-02 08:55 | PN ---
Subjective Date of Service: 12/02/18 Interval History: HOSPITALIST PROGRESS NOTE Patient seen and examined at bedside. Care reviewed and d/w Lois Castro RN. She offers no new complaints. Family History: Unchanged from Admission Social History: Unchanged from Admission Past Medical History: Unchanged from Admission Objective Active Medications: Acetaminophen (Tylenol Tab*) 650 mg PO Q6H PRN PRN Reason: pain/fever Last Admin: 12/02/18 05:34 Dose: 650 mg Atenolol (Tenormin Tab*) 25 mg PO 0900,2300 [facility] Last Admin: 12/01/18 23:10 Dose: Not Given Buspirone HCl (Buspar Tab*) 20 mg PO 2300 [facility] Last Admin: 12/01/18 23:21 Dose: 20 mg Dextrose (D50w Syringe 50 Ml*) 12.5 gm IV PUSH .FOR FS < 60 - SS PRN PRN Reason: FS < 60 Furosemide (Lasix Tab*) 40 mg PO DAILY [facility] Last Admin: 12/01/18 08:50 Dose: 40 mg Gabapentin (Neurontin Cap(*)) 300 mg PO 0900,1400,2300 [facility] Last Admin: 12/01/18 23:20 Dose: 300 mg Cefepime HCl (Maxipime 1 Gm In Dextrose Duplex (*)) 1 gm in 50 mls @ 100 mls/ hr IV Q12H [facility] Last Admin: 12/01/18 20:42 Dose: 100 mls/hr Vancomycin HCl 1,000 mg/ (Sodium Chloride) 250 mls @ 166.667 mls/hr IVPB Q12H [facility] Last Admin: 12/01/18 21:57 Dose: 166.667 mls/hr Insulin Glargine (Lantus(*)) 33.6 units SUBCUT BEDTIME [facility] Last Admin: 12/01/18 21:06 Dose: 33 units Insulin Human Lispro (Humalog*) 0 units SUBCUT ACHS CLAUD[facility]; Protocol Last Admin: 12/01/18 21:06 Dose: 3 units Lisinopril (Prinivil Tab*) 5 mg PO 0900,2300 [facility] Last Admin: 12/01/18 23:11 Dose: Not Given Loperamide HCl (Imodium Cap*) 2 mg PO .SEE DIRECTIONS PRN PRN Reason: DIARRHEA Pharmacy Consult (Vancomycin Per Pharmacy*) 1 note FOLLOW UP . PRN PRN Reason: PER PROTOCOL Pharmacy Profile Note (Vancomycin Trough Check) 1 note FOLLOW UP ONCE ONE Stop: 12/03/18 09:31 Potassium Chloride (Klor Con Er Tab*) 40 meq PO DAILY [facility] Last Admin: 12/01/18 08:55 Dose: Not Given Prednisone (Deltasone Tab*) 5 mg PO DAILY [facility] Last Admin: 12/01/18 08:50 Dose: 5 mg Warfarin Sodium (Coumadin Tab(*)) 5 mg PO DAILY@1700 [facility]; Protocol Last Admin: 12/01/18 17:30 Dose: 5 mg Vital Signs - 8 hr 12/02/18 12/02/18 12/02/18 01:30 03:01 08:00 Temperature 97.4 F Pulse Rate 63 Respiratory 16 16 16 Rate Blood Pressure 109/71 (mmHg) O2 Sat by Pulse 97 Oximetry Oxygen Devices in Use Now: None Appearance: Pleasant lady sitting up in a recliner in NAD. Eyes: No Scleral Icterus Ears/Nose/Mouth/Throat: Mucous Membranes Moist Neck: Trachea Midline Extremities: - - CDI to right foot Neurological: Alert and Oriented x 3, NL Muscle Strength and Tone Result Diagrams: 11/29/18 20:47 11/29/18 20:47 Assess/Plan/Problems-Billing Assessment: 63 yo F with PMH of type 2 DM with diabetic gastroparesis and peripheral neuropathy, tachy arron syndrome s/p pacer, Afib s/p ablation, PE, HTN, granulomatous polyangiitis, diastolic CHF, who presented to ED after a fall with right hallux open fracture, now with infection. - Patient Problems (1) Open fracture of right great toe with delayed healing Comment: - Responding well. - Continue Vanco/Cefepime. - Ortho still deciding about surgical plan - may or may not need wash out depending on Ortho opinion. - Will need her probable osteoporosis addressed as outpatient by her PCP or Rheum. (2) Type 2 diabetes mellitus with neurologic complication, with long-term current use of insulin Comment: - Continue FS ACHS, long acting insulin and Lispro SS. Patient has her Invokana and Victoza - will resume. - A1c 9.1%. (3) Wegeners granulomatosis Comment: - Continue prednisone. (4) History of pulmonary embolism Comment: - Continue Warfarin. (5) Afib Comment: - Continue Atenolol and Warfarin. (6) Diastolic CHF Comment: - Last EF 55-60% in 06/25. - Stable. - Continue Atenolol and Furosemide. (7) DVT prophylaxis Comment: - Warfarin. - Lovenox until INR is subtherapeutic. (8) Full code status Status and Disposition: Inpatient.
[2018-12-02] MEDS: Furosemide TAB* 40 MG PO SCH (09:19)
[2018-12-02] MEDS: Lisinopril TAB* 5 MG PO SCH ×2 (09:19→23:47)
[2018-12-02] MEDS: Atenolol TAB* 25 MG PO SCH ×2 (09:19→23:47)
[2018-12-02] MEDS: Insulin LISPRO* 1 UNITS UNIT SUBCUT SCH ×4 (09:56→21:39)
[2018-12-02] MEDS: predniSONE TAB* 5 MG PO SCH (09:59)
[2018-12-02] MEDS: Gabapentin CAP(*) 300 MG PO SCH ×3 (10:01→23:45)
[2018-12-02] MEDS: Potassium Chlor TAB* 20 MEQ TAB.ER PO SCH (10:02)
[2018-12-02] MEDS ORDERED: Dextrose 50% Syringe 50 ML* 25 GM/50 ML SYRINGE IV PUSH PRN (10:22)
[2018-12-02] MEDS: Cefepime 1 GM in Dextrose(*) 1 GM/50 ML BAG IV SCH ×2 (11:16→20:51)
[2018-12-02] MEDS ORDERED: Insulin LISPRO* 1 UNITS UNIT SUBCUT SCH (11:30)
[2018-12-02] MEDS: Vancomycin(*) 1,000 MG in NS 0.9% 250 ML* 250 ML IVPB SCH ×2 (12:14→21:43)
[2018-12-02] MEDS: LIRAGLUTIDE 18 MG/3 ML SUBCUT SCH (13:22)
[2018-12-02] MEDS: CANAGLIFLOZIN 300 MG PO SCH (13:24)
[2018-12-02] MEDS: Warfarin TAB(*) 5 MG PO SCH (17:03)
--- NOTE | 2018-12-02 19:50 | PN ---
Progress Note - Progress Note Date of Service: 12/02/18 SOAP: Subjective: Pt. reports she thinks her great toe is improving. Objective: Vital Signs: Temp Pulse Resp BP Pulse Ox 98.2 F 60 16 101/55 96 12/02/18 15:29 12/02/18 15:29 12/02/18 17:21 12/02/18 15:29 12/02/18 15:29 Laboratory Results - last 24 hr 12/01/18 12/02/18 12/02/18 20:47 05:32 07:47 INR (Anticoag Therapy) 1.66 H POC Glucose (mg/dL) 278 H 189 H 12/02/18 12/02/18 11:21 17:04 INR (Anticoag Therapy) POC Glucose (mg/dL) 264 H 178 H L great toe - dorsal wound healing, min ss drainage. erythema and swelling mildly improved. Assessment: 63 yo diabetic neuropathy, infected L great toe with question of open fracture. Plan: IV abx Minimal improvement, although I do not see any fluid collection to wash out. Will discuss with Dr. Lyons.
[2018-12-02] MEDS: Enoxaparin(*) 40 MG/0.4 ML SYR SUBCUT SCH (20:51)
[2018-12-02] MEDS: Insulin GLARGINE(*) 1 UNITS UNIT SUBCUT SCH (21:37)
[2018-12-02] MEDS: busPIRone TAB* 10 MG PO SCH (23:45)
[2018-12-03] MEDS: Acetaminophen TAB* 325 MG PO PRN ×3 (00:49→22:20)
[2018-12-03 05:46] LABS: ABS Basophils 0.1 10^3/ul (0-0.2); ABS Eosinophils 0.1 10^3/ul (0-0.6); ABS Lymphocytes 2.9 10^3/ul (1.0-4.8); ABS Monocytes 0.7 10^3/ul (0-0.8); ABS Neutrophils 2.9 10^3/ul (1.5-7.7); ABS Nucleated RBC 0 10^3/ul; Eosinophil % 2.2 %; Hematocrit 36 % (33-41); Hemoglobin 12.1 g/dL (12.0-16.0); Lymphocyte % 43.2 %; Mean Corpuscular HGB Conc 34 g/dL (31-36); Mean Corpuscular Hemoglobin 29 pg (27-31); Mean Corpuscular Volume 85 fL (80-97); Mean Platelet Volume 7.5 fL (7.4-10.4); Nucleated Red Blood Cells % 0.1; Platelet Count 254 10^3/uL (150-450); Red Blood Count 4.22 10^6 /uL (3.70-4.87); Red Cell Distribution Width 16 % (10.5-15); White Blood Count 6.7 10^3/uL (3.5-10.8)
[2018-12-03 05:50] LABS: INR 2.04 (0.77-1.02)
[2018-12-03 06:07] LABS: BUN/Creatinine Ratio 31.9 (8-20); Calcium 8.9 mg/dL (8.6-10.3); EGFR Non-African American 85.9 (>60); Potassium 3.8 mmol/L (3.5-5.0)
[2018-12-03] MEDS: Lisinopril TAB* 5 MG PO SCH ×3 (07:55→23:40)
[2018-12-03] MEDS: Furosemide TAB* 40 MG PO SCH (07:55)
[2018-12-03] MEDS: Atenolol TAB* 25 MG PO SCH ×3 (07:55→23:39)
[2018-12-03] MEDS: Cefepime 1 GM in Dextrose(*) 1 GM/50 ML BAG IV SCH (08:41)
[2018-12-03] MEDS: Insulin LISPRO* 1 UNITS UNIT SUBCUT SCH ×4 (09:21→22:21)
[2018-12-03] MEDS: LIRAGLUTIDE 18 MG/3 ML SUBCUT SCH (09:22)
[2018-12-03] MEDS: CANAGLIFLOZIN 300 MG PO SCH (09:22)
[2018-12-03] MEDS: predniSONE TAB* 5 MG PO SCH (09:22)
[2018-12-03] MEDS: Potassium Chlor TAB* 20 MEQ TAB.ER PO SCH (09:24)
[2018-12-03] MEDS ORDERED: Vancomycin Trough Check NOTE FOLLOW UP ONE (09:30)
[2018-12-03] MEDS: Gabapentin CAP(*) 300 MG PO SCH ×3 (09:35→23:39)
[2018-12-03] MEDS: Vancomycin(*) 1,000 MG in NS 0.9% 250 ML* 250 ML IVPB SCH (10:21)
--- NOTE | 2018-12-03 12:13 | PN ---
Subjective Date of Service: 12/03/18 Interval History: Received call from RN that patient needs bowel medication and she has not had a BM recently. Discussed patient with JOSÉ Will who states patient is okay for discharge from ortho standpoint with a follow up in one week with Dr Cardenas. He is familiar with patient. MELANIE Abreu states dressing was changed this morning by Dr Bansal. Order given to give beta johnson and jolanta now as beta johnson has been held for several days and BP is now 130s Denies pain. Family History: Unchanged from Admission Social History: Unchanged from Admission Past Medical History: Unchanged from Admission Objective Active Medications: Acetaminophen (Tylenol Tab*) 650 mg PO Q6H PRN PRN Reason: pain/fever Last Admin: 12/03/18 07:00 Dose: 650 mg Atenolol (Tenormin Tab*) 25 mg PO 0900,2300 REPLACED BY [facility] Last Admin: 12/03/18 07:55 Dose: Not Given Buspirone HCl (Buspar Tab*) 20 mg PO 2300 REPLACED BY [facility] Last Admin: 12/02/18 23:45 Dose: 20 mg Canagliflozin (Invokana (Nf)) 300 mg PO DAILY REPLACED BY [facility] Last Admin: 12/03/18 09:22 Dose: 300 mg Dextrose (D50w Syringe 50 Ml*) 12.5 gm IV PUSH .FOR FS < 60 - SS PRN PRN Reason: FS < 60 Enoxaparin Sodium (Lovenox(*)) 40 mg SUBCUT BEDTIME REPLACED BY [facility] Last Admin: 12/02/18 20:51 Dose: 40 mg Furosemide (Lasix Tab*) 40 mg PO DAILY REPLACED BY [facility] Last Admin: 12/03/18 07:55 Dose: Not Given Gabapentin (Neurontin Cap(*)) 300 mg PO 0900,1400,2300 REPLACED BY [facility] Last Admin: 12/03/18 09:35 Dose: 300 mg Heparin Sodium (Porcine) (Heparin Flush Picc/Ml/Cvc(*)) 1 - 3 ml FLUSH 0600, 1800 [facility]; Protocol Last Admin: 12/03/18 05:15 Dose: 1 ml Cefepime HCl (Maxipime 1 Gm In Dextrose Duplex (*)) 1 gm in 50 mls @ 100 mls/ hr IV Q12H REPLACED BY [facility] Last Admin: 12/03/18 08:41 Dose: 100 mls/hr Vancomycin HCl 1,000 mg/ (Sodium Chloride) 250 mls @ 166.667 mls/hr IVPB Q12H REPLACED BY [facility] Last Admin: 12/03/18 10:21 Dose: 166.667 mls/hr Insulin Glargine (Lantus(*)) 33.6 units SUBCUT BEDTIME REPLACED BY [facility] Last Admin: 12/02/18 21:37 Dose: 33 units Insulin Human Lispro (Humalog*) 0 units SUBCUT ACHS REPLACED BY [facility]; Protocol Last Admin: 12/03/18 09:21 Dose: 1 units Liraglutide (Victoza (Nf)) 1.8 mg SUBCUT DAILY REPLACED BY [facility] Last Admin: 12/03/18 09:22 Dose: 1.8 mg Lisinopril (Prinivil Tab*) 5 mg PO 0900,2300 REPLACED BY [facility] Last Admin: 12/03/18 07:55 Dose: Not Given Loperamide HCl (Imodium Cap*) 2 mg PO .SEE DIRECTIONS PRN PRN Reason: DIARRHEA Pharmacy Consult (Vancomycin Per Pharmacy*) 1 note FOLLOW UP . PRN PRN Reason: PER PROTOCOL Pharmacy Profile Note (Vancomycin Trough Check) 1 note FOLLOW UP 929 ONE Stop: 12/05/18 09:31 Potassium Chloride (Klor Con Er Tab*) 40 meq PO DAILY REPLACED BY [facility] Last Admin: 12/03/18 09:24 Dose: Not Given Prednisone (Deltasone Tab*) 5 mg PO DAILY REPLACED BY [facility] Last Admin: 12/03/18 09:22 Dose: 5 mg Warfarin Sodium (Coumadin Tab(*)) 5 mg PO DAILY@1700 REPLACED BY [facility]; Protocol Last Admin: 12/02/18 17:03 Dose: 5 mg Vital Signs - 8 hr 12/03/18 12/03/18 12/03/18 07:00 07:15 08:45 Temperature 97.7 F 97.7 F Pulse Rate 62 62 Respiratory 16 16 16 Rate Blood Pressure 108/63 108/63 (mmHg) O2 Sat by Pulse 99 99 Oximetry 12/03/18 12/03/18 09:35 11:34 Temperature 97.5 F Pulse Rate 68 Respiratory 16 16 Rate Blood Pressure 131/61 (mmHg) O2 Sat by Pulse Oximetry Oxygen Devices in Use Now: None Appearance: Comfortable, NAD Eyes: No Scleral Icterus Ears/Nose/Mouth/Throat: Clear Oropharnyx, Mucous Membranes Moist Neck: NL Appearance and Movements; NL JVP Respiratory: Symmetrical Chest Expansion and Respiratory Effort, Clear to Auscultation Cardiovascular: NL Sounds; No Murmurs; No JVD, RRR, No Edema Abdominal: NL Sounds; No Tenderness; No Distention Lymphatic: No Cervical Adenopathy Extremities: No Clubbing, Cyanosis Skin: - - Dressing to right LE CDI Neurological: Alert and Oriented x 3, NL Muscle Strength and Tone Nutrition: Taking PO's Result Diagrams: 12/03/18 05:32 12/03/18 05:32 Additional Lab and Data: Laboratory Results - last 24 hr 12/02/18 12/03/18 12/03/18 20:58 05:32 05:32 WBC 6.7 RBC 4.22 Hgb 12.1 Hct 36 MCV 85 MCH 29 MCHC 34 RDW 16 H Plt Count 254 MPV 7.5 Neut % (Auto) 43.0 Lymph % (Auto) 43.2 [place] % (Auto) 10.6 Eos % (Auto) 2.2 Baso % (Auto) 1.0 Absolute Neuts (auto) 2.9 Absolute Lymphs (auto) 2.9 Absolute Monos (auto) 0.7 Absolute Eos (auto) 0.1 Absolute Basos (auto) 0.1 Absolute Nucleated RBC 0 Nucleated RBC % 0.1 INR (Anticoag Therapy) 2.04 H Sodium Potassium Chloride Carbon Dioxide Anion Gap BUN Creatinine Est GFR ( Amer) Est GFR (Non-Af Amer) BUN/Creatinine Ratio Glucose POC Glucose (mg/dL) 230 H Calcium Vancomycin Trough 12/03/18 12/03/18 12/03/18 05:32 09:30 11:44 WBC RBC Hgb Hct MCV MCH MCHC RDW Plt Count MPV Neut % (Auto) Lymph % (Auto) [place] % (Auto) Eos % (Auto) Baso % (Auto) Absolute Neuts (auto) Absolute Lymphs (auto) Absolute Monos (auto) Absolute Eos (auto) Absolute Basos (auto) Absolute Nucleated RBC Nucleated RBC % INR (Anticoag Therapy) Sodium 139 Potassium 3.8 Chloride 105 Carbon Dioxide 27 Anion Gap 7 BUN 22 Creatinine 0.69 Est GFR ( Amer) 104.0 Est GFR (Non-Af Amer) 85.9 BUN/Creatinine Ratio 31.9 H Glucose 172 H POC Glucose (mg/dL) 145 H Calcium 8.9 Vancomycin Trough 16.3 12/03/18 16:27 WBC RBC Hgb Hct MCV MCH MCHC RDW Plt Count MPV Neut % (Auto) Lymph % (Auto) [place] % (Auto) Eos % (Auto) Baso % (Auto) Absolute Neuts (auto) Absolute Lymphs (auto) Absolute Monos (auto) Absolute Eos (auto) Absolute Basos (auto) Absolute Nucleated RBC Nucleated RBC % INR (Anticoag Therapy) Sodium Potassium Chloride Carbon Dioxide Anion Gap BUN Creatinine Est GFR ( Amer) Est GFR (Non-Af Amer) BUN/Creatinine Ratio Glucose POC Glucose (mg/dL) 223 H Calcium Vancomycin Trough Microbiology and Other Data: . Diagnostic Imaging: RT great toe: fracture distal phalanx, proximal, lateral Assess/Plan/Problems-Billing Assessment: 63 yo F with PMH of type 2 DM with diabetic gastroparesis and peripheral neuropathy, tachy arron syndrome s/p pacer, Afib s/p ablation, PE, HTN, granulomatous polyangiitis, diastolic CHF, who presented to ED after a fall with right hallux open fracture, now with infection. - Patient Problems (1) Open fracture of right great toe with delayed healing Comment: - Responding well. - Has been on Vanco/Cefepime. Will transition to Doxycycline PO in prep for d/ c. Will need 2 wk course of abx and follow up with Dr Reynoso as outpatient - Ortho states she is ready for discharge. Plan follow up in one week with Dr Lyons. - Will need her probable osteoporosis addressed as outpatient by her PCP or Rheum. (2) Afib Comment: - Continue Atenolol and Warfarin. (3) Diastolic CHF Comment: - Last EF 55-60% in 06/25. - Stable. - Continue Atenolol and Furosemide. (4) History of pulmonary embolism Comment: - Continue Warfarin. (5) Type 2 diabetes mellitus with neurologic complication, with long-term current use of insulin Comment: - Continue FS ACHS, long acting insulin and Lispro SS. Patient has her Invokana and Victoza - will resume. - A1c 9.1%. (6) Wegeners granulomatosis Comment: - Continue prednisone. (7) DVT prophylaxis Comment: - Warfarin. - Lovenox until INR is subtherapeutic. (8) Full code status Status and Disposition: Inpatient. Attending: Sapna Montez
[2018-12-03] MEDS ORDERED: Senna TAB PO PRN (12:18)
[2018-12-03] MEDS: Docusate CAP* 100 MG PO SCH ×2 (13:34→22:06)
--- NOTE | 2018-12-03 15:58 | PN ---
Progress Note - Progress Note Date of Service: 12/03/18 SOAP: Subjective: []Pt seen at bedside. Denies fever or chills. She lacks sensation in her feet, so she has no pain to report. Objective: General: Well appearing, NAD L great toe - there is a healing wound on the dorsum of her left great toe with mild erythema and without drainage. Assessment: 63 yo diabetic neuropathy, infected L great toe with question of open fracture. Plan: IV abx, transition to doxycycline tomorrow Seen by Dr Zamora today as well, confirms DC to home tomorrow and F/U with him next week Vital Signs Temp 98.2 F 12/03/18 15:17 Pulse 59 12/03/18 15:17 Resp 16 12/03/18 15:17 BP 104/54 12/03/18 15:17 Pulse Ox 96 12/03/18 15:17 Intake & Output 12/02/18 12/03/18 12/03/18 18:59 06:59 18:59 Intake Total 925 1250 1140 Output Total 850 1450 500 Balance 75 -200 640 Intake: IV Fluids 290 ABX - VANCOMYCIN 270 ns 20 IVPB 385 560 ABX - CEFEPIME 105 ABX - VANCOMYCIN 280 560 Oral 540 960 580 Output: Urine 850 1450 500 Laboratory Last Values WBC 6.7 10^3/uL (3.5-10.8) 12/03/18 05:32 RBC 4.22 10^6 /uL (3.70-4.87) 12/03/18 05:32 Hgb 12.1 g/dL (12.0-16.0) 12/03/18 05:32 Hct 36 % (33-41) 12/03/18 05:32 MCV 85 fL (80-97) 12/03/18 05:32 MCH 29 pg (27-31) 12/03/18 05:32 MCHC 34 g/dL (31-36) 12/03/18 05:32 RDW 16 % (10.5-15) H 12/03/18 05:32 Plt Count 254 10^3/uL (150-450) 12/03/18 05:32 MPV 7.5 fL (7.4-10.4) 12/03/18 05:32 Neut % (Auto) 43.0 % 12/03/18 05:32 Lymph % (Auto) 43.2 % 12/03/18 05:32 [place] % (Auto) 10.6 % 12/03/18 05:32 Eos % (Auto) 2.2 % 12/03/18 05:32 Baso % (Auto) 1.0 % 12/03/18 05:32 Absolute Neuts (auto) 2.9 10^3/ul (1.5-7.7) 12/03/18 05:32 Absolute Lymphs (auto) 2.9 10^3/ul (1.0-4.8) 12/03/18 05:32 Absolute Monos (auto) 0.7 10^3/ul (0-0.8) 12/03/18 05:32 Absolute Eos (auto) 0.1 10^3/ul (0-0.6) 12/03/18 05:32 Absolute Basos (auto) 0.1 10^3/ul (0-0.2) 12/03/18 05:32 Absolute Nucleated RBC 0 10^3/ul 12/03/18 05:32 Nucleated RBC % 0.1 12/03/18 05:32 INR (Anticoag Therapy) 2.04 (0.77-1.02) H 12/03/18 05:32 Sodium 139 mmol/L (135-145) 12/03/18 05:32 Potassium 3.8 mmol/L (3.5-5.0) 12/03/18 05:32 Chloride 105 mmol/L (101-111) 12/03/18 05:32 Carbon Dioxide 27 mmol/L (22-32) 12/03/18 05:32 Anion Gap 7 mmol/L (2-11) 12/03/18 05:32 BUN 22 mg/dL (6-24) 12/03/18 05:32 Creatinine 0.69 mg/dL (0.51-0.95) 12/03/18 05:32 Est GFR ( Amer) 104.0 (>60) 12/03/18 05:32 Est GFR (Non-Af Amer) 85.9 (>60) 12/03/18 05:32 BUN/Creatinine Ratio 31.9 (8-20) H 12/03/18 05:32 Glucose 172 mg/dL (70-100) H 12/03/18 05:32 POC Glucose (mg/dL) 145 mg/dL (70-100) H 12/03/18 11:44 Hemoglobin A1c 9.1 % (4.0-5.6) H 11/30/18 05:19 Lactic Acid 1.9 mmol/L (0.5-2.0) 11/29/18 20:47 Calcium 8.9 mg/dL (8.6-10.3) 12/03/18 05:32 Total Bilirubin 0.50 mg/dL (0.2-1.0) 11/29/18 20:47 AST 25 U/L (13-39) 11/29/18 20:47 ALT 17 U/L (7-52) 11/29/18 20:47 Alkaline Phosphatase 55 U/L (34-104) 11/29/18 20:47 C-Reactive Protein 13.04 mg/L (<8.01) H 11/29/18 20:47 Total Protein 8.2 g/dL (6.4-8.9) 11/29/18 20:47 Albumin 4.0 g/dL (3.2-5.2) 11/29/18 20:47 Globulin 4.2 g/dL (2-4) H 11/29/18 20:47 Albumin/Globulin Ratio 1.0 (1-3) 11/29/18 20:47 Urine Color Straw 11/29/18 22:02 Urine Appearance Clear 11/29/18 22:02 Urine pH 5.0 (5-9) 11/29/18 22:02 Ur Specific [place] 1.008 (1.010-1.030) L 11/29/18 22:02 Urine Protein Negative (Negative) 11/29/18 22:02 Urine Ketones Negative (Negative) 11/29/18 22:02 Urine Blood 1+ (Negative) A 11/29/18 22:02 Urine Nitrate Negative (Negative) 11/29/18 22:02 Urine Bilirubin Negative (Negative) 11/29/18 22:02 Urine Urobilinogen Negative (Negative) 11/29/18 22:02 Ur Leukocyte Esterase Negative (Negative) 11/29/18 22:02 Urine WBC (Auto) Absent (Absent) 11/29/18 22:02 Urine RBC (Auto) Trace(0-2/hpf) (Absent) 11/29/18 22:02 Urine Bacteria Absent (Absent) 11/29/18 22:02 Hyaline Casts Present (Absent) A 11/29/18 22:02 Urine Glucose 3+(>=500 mg/dl) (Negative) A 11/29/18 22:02 Vancomycin Trough 16.3 mcg/mL 12/03/18 09:30
[2018-12-03] MEDS ORDERED: Warfarin TAB(*) 2 MG PO ONE (17:00)
[2018-12-03] MEDS ORDERED: Magnesium Hydroxide LIQ* 30 ML UDC PO PRN (17:55)
[2018-12-03] MEDS: Enoxaparin(*) 40 MG/0.4 ML SYR SUBCUT SCH (22:06)
[2018-12-03] MEDS: DOXYcycline CAP(*) 100 MG PO SCH (22:06)
[2018-12-03] MEDS: Insulin GLARGINE(*) 1 UNITS UNIT SUBCUT SCH (22:20)
[2018-12-03] MEDS: busPIRone TAB* 10 MG PO SCH (23:39)
[2018-12-04 05:27] LABS: Hematocrit 36 % (33-41); Mean Platelet Volume 7.6 fL (7.4-10.4); Platelet Count 258 10^3/uL (150-450)
[2018-12-04 05:35] LABS: INR 2.26 (0.77-1.02)
[2018-12-04 07:38] VITALS: BP 103/59
[2018-12-04] MEDS: Insulin LISPRO* 1 UNITS UNIT SUBCUT SCH ×2 (08:27→11:41)
[2018-12-04] MEDS: Furosemide TAB* 40 MG PO SCH (08:34)
[2018-12-04] MEDS: Docusate CAP* 100 MG PO SCH (08:34)
[2018-12-04] MEDS: DOXYcycline CAP(*) 100 MG PO SCH (08:34)
[2018-12-04] MEDS: Acetaminophen TAB* 325 MG PO PRN (08:34)
[2018-12-04] MEDS: Potassium Chlor TAB* 20 MEQ TAB.ER PO SCH (08:34)
[2018-12-04] MEDS: predniSONE TAB* 5 MG PO SCH (08:34)
[2018-12-04] MEDS: LIRAGLUTIDE 18 MG/3 ML SUBCUT SCH (08:36)
[2018-12-04] MEDS: CANAGLIFLOZIN 300 MG PO SCH (08:36)
[2018-12-04] MEDS: Atenolol TAB* 25 MG PO SCH (08:50)
[2018-12-04] MEDS: Lisinopril TAB* 5 MG PO SCH (08:50)
[2018-12-04] MEDS: Gabapentin CAP(*) 300 MG PO SCH (08:52)
--- NOTE | 2018-12-04 14:18 | DS ---
CC: Dr. Calderón. * DISCHARGE SUMMARY: DATE OF ADMISSION: 11/29/18 DATE OF DISCHARGE: 12/04/18 PRIMARY CARE PROVIDER: Dr. Calderón. PROVIDERS IN CONSULTATION: Dr. Condon and Dr. Juan David Reynoso. ATTENDING PHYSICIAN: Dr. Fishman * (dictated by Alison Padilla NP) PRIMARY DIAGNOSIS: Open fracture of right grate toe with delayed healing. SECONDARY DIAGNOSES: 1. Type 2 diabetes. 2. Erickson's granulomatosis. 3. History of pulmonary embolism. 4. Pacemaker for tachy-arron. 5. Gastroparesis. 6. Peripheral neuropathy. 7. Atrial fibrillation, status post ablation. 8. Congestive heart failure. CONSULTATION ON HOSPITAL: 1. Dr. Condon, Orthopedics. 2. Dr. Juan David Reynoso, Infectious Diseases. PROCEDURES WHILE IN THE HOSPITAL: No procedures. STUDIES WHILE IN THE HOSPITAL: Right toe x-ray: Impression: Soft tissue swelling. The previously identified fracture is still present in the lateral aspect of the proximal phalanx of the first digit. DISCHARGE MEDICATIONS: Continued home medications: 1. Coumadin 2 mg every other day. 2. Coumadin 4 mg every other day. 3. Atenolol 25 mg p.o. b.i.d. 4. Lasix 40 mg p.o. daily. 5. Invokana 300 mg p.o. daily. 6. Gabapentin 300 mg t.i.d. 7. Toujeo SoloStar pen 42 units subcu at bedtime. 8. Lisinopril 5 mg p.o. b.i.d. 9. Regular insulin sliding scale. 10. Victoza 1.8 units subcu daily. 11. Potassium 40 mEq p.o. daily. 12. BuSpar 20 mg p.o. q.p.m. 13. Prednisone 5 mg daily. New home medications: 1. Doxycycline 100 mg p.o. b.i.d. x14 days Discontinued home medications: 1. Keflex 500 mg p.o. q.i.d. HISTORY OF PRESENT ILLNESS/HOSPITAL COURSE: Ms. Leon, a 60-year-old woman with a past medical history significant for type 2 diabetes and peripheral neuropathy. She presented to the emergency room on 11/29/18 after reporting that she tripped 2 days ago while walking with her walker and had an open fracture of her right greater toe. Please see history and physical dictated by Dr. Lewis Nguyen for further details of the events leading up to her presentation in the emergency department. But in short, while in the emergency department the patient's fracture was reduced and wound was closed. She saw Dr. Condon in followup. On the morning of 11/29/18, she noticed purulent drainage, therefore presented to the emergency department. While in the emergency department, it was determined that patient required admission and she did not respond to outpatient management. The patient was admitted for IV antibiotics and surgical consult. The patient was seen by Dr. Condon and Dr. Constantino in consultation. Dr. Condon is familiar with patient as he saw her as an outpatient. It was determined that the patient could be treated with antibiotics and planned for surgery at a later date. While admitted, the patient was also consulted by Dr. Reynoso from Infectious Diseases, given recurrent infection and failure of outpatient treatment. The patient was initially started on vancomycin and cefepime. At the request of Dr. Reynoso, patient was transitioned to doxycycline p.o. before discharge. The patient should continue 2 weeks of antibiotics and to follow up with Dr. Condon. In addition, given patient's history of AFib and pulmonary embolism, the patient was bridged with Lovenox until INR was therapeutic . Ms. Leon is stable for discharge home. REVIEW OF SYSTEMS: The patient denies pain in lower extremities. The patient denies calf pain, cramping, and weakness. The patient reports numbness in bilateral feet, which is baseline for her due to neuropathy. The patient denies chest pain, shortness of breath, palpitations, nausea, vomiting, diarrhea , fever, chills. A 14-point review of systems was completed and all others were negative. PHYSICAL EXAMINATION: General: Ms. Leon is a 63-year-old female who is sitting in bed, appears in no acute distress, appears stated age. Vital Signs: Temp 97.5, HR 60, RR 18, O2 saturation 98%, BP 103/59. HEENT: EOMS intact. PERRLA. Oral mucosa is moist without lesion. Posterior pharynx is clear. Neck : Supple. No lymphadenopathy. Respiratory: Lungs are clear to auscultation. Good aeration. No wheezes, rales, or rhonchi. Cardiac: S1 and S2 present. Regular rate and rhythm. No murmurs, rubs, or gallops. Abdomen: Soft and nontender. Bowel sounds x4. Extremities: No clubbing or cyanosis. No edema. No pain or deformities. Skin: The patient's right great toe was unwrapped and visualized by this proposal lead writer. Scant amount of edema. No redness. No drainage. The patient reports it appears "much better" than from admission. Remainder of the skin is clean, dry, and intact. Neuro: No focal deficits or weakness. Neuro exam is grossly intact. LABORATORY DATA: WBC 6.7, hemoglobin 12.1, hematocrit 36, platelet 254. Sodium 139, potassium 3.8, chloride 104, carbon dioxide 27, BUN 22, creatinine 0.69, glucose of 172. DISCHARGE PLAN/FOLLOWUP: 1. Open fracture of right grate toe with delayed healing: As mentioned above, the patient's right great toe is responding well to antibiotics and has improved. The patient will continue doxycycline p.o. b.i.d. for 14 days per recommendation of Dr. Reynoso. The patient does not need to follow up with the Dr. Reynoso as an outpatient. The patient needs to follow up with Ortho in 1 week. At the time, Dr. Condon will assess for improvement and plan surgery accordingly. 2. Probable osteoporosis: There was some concern for osteoporosis. I will encourage patient to follow up with her primary care provider or her brake adjuster for further workup of this. 3. AFib: The patient should continue her atenolol and warfarin. The patient should have her INR checked in the next 3 days given she is on antibiotics. 4. Systolic heart failure: Stable. The patient to continue atenolol and furosemide. 5. History of pulmonary embolism: The patient should continue her warfarin. As mentioned above, the patient to have her INR checked in 3 days given she will be on antibiotics. 6. Type 2 diabetes: The patient should continue her home medication as same. A1c was 9.1%. The patient to follow up with her primary care. 7. Erickson's granulomatosis: The patient should continue her prednisone. As mentioned above, given her long-term prednisone use, the patient should follow up with her primary care brake adjuster regarding osteoporosis screening. 8. Pacemaker for tachy-arron: The patient should follow up with her associate professor of law as recommended. The patient should continue her metoprolol and warfarin. 9. Hypertension: The patient should continue her medications as same. 10. Followup: As mentioned above, the patient should follow up with Dr. Condon in 1 week. The patient should also follow up with her primary care provider early next week for followup and INR check. 11. Education: The patient was educated on signs and symptoms of new and worsening condition and when to call her primary care provider and/or present to the emergency department. The patient started understanding. This is a summarized report of a complex medical history and hospital stay. For further details, please see the entire medical record. TIME SPENT: Approximately 60 minutes was spent on this discharge, greater than half the time was spent face to face with the patient discussing discharge plans and instructions. PLAN: This plan was also discussed with my attending, Dr. Fishman, who agrees with my plan. ALISON PADILLA, JOSHUA [id number]/CPS #: [id number] EDGAR
[2018-12-05] MEDS ORDERED: Vancomycin Trough Check NOTE FOLLOW UP ONE (09:30)
== END 2018-12-04 11:43 | disposition home or self-care (01) | DRG 563 ==
LOC: ED 19:54 → SSU 22:59
PROVIDERS: ADMIT Internal Medicine; ATTEND Internal Medicine
PROC: 05HY33Z Insertion of Infusion Device into Upper Vein, Percutaneous Approach (ICD-10-PCS; principal; 2018-12-02)
DX: S92.411B Displaced fracture of proximal phalanx of right great toe, initial encounter for open fracture (principal); M31.30 Wegener's granulomatosis without renal involvement; I50.30 Unspecified diastolic (congestive) heart failure; M30.0 Polyarteritis nodosa; E11.42 Type 2 diabetes mellitus with diabetic polyneuropathy; E11.43 Type 2 diabetes mellitus with diabetic autonomic (poly)neuropathy; I49.5 Sick sinus syndrome; I11.0 Hypertensive heart disease with heart failure; K31.84 Gastroparesis; I48.91 Unspecified atrial fibrillation; L03.031 Cellulitis of right toe; M81.0 Age-related osteoporosis without current pathological fracture; W18.09XA Striking against other object with subsequent fall, initial encounter; X58.XXXD Exposure to other specified factors, subsequent encounter; Z95.0 Presence of cardiac pacemaker; Y92.009 Unspecified place in unspecified non-institutional (private) residence as the place of occurrence of the external cause; Z86.711 Personal history of pulmonary embolism; Z83.3 Family history of diabetes mellitus; Z82.49 Family history of ischemic heart disease and other diseases of the circulatory system; Z82.5 Family history of asthma and other chronic lower respiratory diseases; Z79.01 Long term (current) use of anticoagulants; Z79.4 Long term (current) use of insulin; Z79.52 Long term (current) use of systemic steroids; Z79.899 Other long term (current) drug therapy; S92.402G Displaced unspecified fracture of left great toe, subsequent encounter for fracture with delayed healing; Z87.81 Personal history of (healed) traumatic fracture
CPT/HCPCS: 36415; 80048; 80053; 80202; 81003; 81015; 83036; 83605; 85014; 85018; 85025; 85049; 85610; 86140; 99284; A9270-GY; J0690; J0692; J1650; J3370; J7512

== ENCOUNTER 2019-01-15 08:50 | Day surgery (SDC) | payer MEDICARE, OTHER ==
[~2019-01-15 08:50] MED LIST: Buffered Lidocaine 1% SYRIN* 1 ML/SYRINGE INTRADERM ONE; ceFAZolin 2 GM PREMIX in ORs 2 GM/50 ML BAG IVPB ONE
[2019-01-15] MEDS: Lactated Ringers 1000 ML Bag* 1,000 ML IV SCH ×2 (09:49→13:04)
[2019-01-15 10:03] LABS: INR 2.61 (0.82-1.09)
[2019-01-15] MEDS ORDERED: Propofol* 10 MG/ML 20 ML BTL ONE ×2 (10:36→10:40)
[2019-01-15] MEDS ORDERED: Lidocaine 2% PF * 5 ML VIAL ONE (10:37)
[2019-01-15] MEDS ORDERED: Neostigmine Methylsulfate* 1 MG/ML 10 ML VIAL (1 mg/ml) ONE (10:43)
[2019-01-15] MEDS ORDERED: Glycopyrrolate IV* 0.2 MG/ML 1 ML VIAL ONE (10:43)
[2019-01-15] MEDS ORDERED: Bupivacaine 0.5%* 50 ML VIAL ONE (11:23)
[2019-01-15] MEDS ORDERED: Metoclopramide IV* 5 MG/ML 2 ML VIAL ONE (11:24)
[2019-01-15] MEDS ORDERED: Ondansetron INJ* 2 MG/ML VIAL ONE (11:24)
[2019-01-15] MEDS ORDERED: Midazolam* 1 MG/ML 2 ML VIAL (2 MG) ONE (11:24)
[2019-01-15] MEDS ORDERED: Phenylephrine 10 MG/ML VIAL* 1 ML VIAL ONE (12:01)
[2019-01-15] MEDS ORDERED: Acetaminophen TAB* 325 MG PO PRN (12:15)
[2019-01-15] MEDS ORDERED: Naloxone* 0.4 MG/ML 1 ML VIAL IV PRN (12:15)
[2019-01-15] MEDS ORDERED: fentaNYL* 50 MCG/ML 2 ML VIAL (100 MCG VIAL) IV PRN (12:15)
[2019-01-15] MEDS ORDERED: oxyCODONE TAB* 5 MG TAB PO PRN (12:15)
[2019-01-15] MEDS ORDERED: DiMENhydriNATE IV* 50 MG/ML VIAL IV PUSH PRN (12:15)
[2019-01-15] MEDS ORDERED: Phenylephrine 40 MCG/ML SYRINGE ONE (12:47)
[2019-01-15] MEDS ORDERED: Acetaminophen IV 1GM/100ML * 100 ML ONE (13:06)
--- NOTE | 2019-01-15 13:08 | OP ---
Operative Report - Blank - Operative Report Date of Operation: 01/15/19 Note: PATIENT: Ayanna Leon DATE OF : 1955 DATE OF SURGERY: 01/15/2019 SURGEON: Jemal Condon MD CNA PCT: JOSÉ Izquierdo, whos assistance was necessary for positioning, retraction, help with instrumentation, and closure. ANESTHESIOLOGIST: Dr. Fall PREOPERATIVE DIAGNOSIS: Right hallux recurrent injuries and flexion deformity at the IP joint. Right knee mass, likely ganglion cyst. POSTOPERATIVE DIAGNOSIS: Right hallux recurrent injuries and flexion deformity at the IP joint. Right knee ganglion cyst. OPERATION: 1. 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 Right knee ganglion cyst excision. ANESTHESIA: MAC IMPLANTS: none TOURNIQUET TIME: Less than 1 hour with a well-padded thigh tourniquet at 250 mmHg SPECIMENS: Toe to pathology. Ganglion cyst to pathology. ESTIMATED BLOOD LOSS: minimal COMPLICATIONS: none STATUS: Stable from the operating room to the recovery room and then home. INDICATIONS FOR PROCEDURE: Ayanna has had persistent problems with her right hallux. She has severe neuropathy and continues to get injuries to the right hallux, with lacerations, infection, and a persistent IP joint flexion deformity. She feels she has failed extensive nonoperative treatment. We had discussed an IP fusion versus partial hallux amputation. Additionally, she has a painful mass in her right knee, which is likely a ganglion cyst. Both operative and nonoperative treatment alternatives were reviewed. Further, the nature and risks of surgery were reviewed in careful detail. Our discussions regarding the risks of surgery included, but were not limited to, infection, wound problems, nerve injury, neuroma, RSD, persistent symptoms, blood clot, failure of the surgery, need for further amputation or surgery, recurrence of the mass, and even the remote chance of catastrophic complication, including loss of limb. DESCRIPTION OF PROCEDURE: The patient was seen in the preoperative holding unit and informed written consent was obtained. The appropriate extremity was marked. The patient was then brought to the operating room and carefully positioned on the operating room table. Anesthesia was induced. All bony prominences were padded with great care. A chlorhexidine based pre-scrub was performed followed by a chloraprep prep and drape in standard sterile fashion. A surgical safety pause was then conducted in which we confirmed the appropriate patient, extremity, planned procedure, availability of equipment, indication and administration of prophylactic antibiotics, and DVT prophylaxis in the form of a compression boot on the non-surgical extremity. I began with an exsanguination of the limb and inflated tourniquet. I then made an incision to remove the distal aspect of the right great toe. I maintained enough soft-tissue length for closure. The phalanges were dissected out and the toe was amputated at the level of the IP joint. The toe was then sent to pathology. We then irrigated copiously. We closed with 3-0 monocryl and then 3-0 nylon. I then turned my attention to the right knee. In any longitudinal incision overlying the medial knee cyst. It was along the pes anserinus tendons. I carefully dissected down, and use electrocautery for hemostasis. The carefully dissected out the cyst and amputated at its stalk. I used electrocautery at the stalk. The cyst was then sent to pathology. It measured approximately 5cm in diameter. Hemostasis was obtained, and the wound was copiously irrigated. It was closed in a layered fashion with 3-0 Monocryl and 3-0 nylon. A sterile compression dressing was then applied. The patient was then awakened from anesthesia and transferred to the recovery room in stable condition. There were no complications. All needle and sponge counts were correct at the end of the case. ATTESTATION: I attest I was present and scrubbed and performed the critical portions of the procedure myself. POSTOPERATIVE PLAN: The patient may be heel weight-bearing in a post-operative shoe and will follow up will be in 1 week for a wound check.
[2019-01-15 14:46] VITALS: BP 103/67
== END 2019-01-15 14:48 | disposition home or self-care (01) ==
LOC: OR 08:50
PROVIDERS: ATTEND Orthopaedic Surgery
DX: M20.5X1 Other deformities of toe(s) (acquired), right foot (principal); M67.461 Ganglion, right knee; E11.40 Type 2 diabetes mellitus with diabetic neuropathy, unspecified; Z79.4 Long term (current) use of insulin; I48.91 Unspecified atrial fibrillation; Z86.711 Personal history of pulmonary embolism; Z79.01 Long term (current) use of anticoagulants; Z95.0 Presence of cardiac pacemaker; M19.90 Unspecified osteoarthritis, unspecified site; I10 Essential (primary) hypertension; F41.8 Other specified anxiety disorders
CPT/HCPCS: 36415; 85610; 88304; 88305; 88311; J0690; J2250; J2405; J2704; J2710; J2765; J3490

== ENCOUNTER 2019-02-20 15:42 | Emergency (ER) | payer MEDICARE, OTHER ==
--- OUTSIDE RECORDS SUMMARY | 2019-02-20 16:28 | XMS REPORT | Continuity of Care Document ---
:1955 External Reference #:[id number] Author Name Renata Maloney Care Team Providers Name Role Phone Long Calderón MD Primary Care Physician Unavailable Payers Date Identification Numbers Payment Provider Subscriber Policy Number: [id number] Medicare Ayanna Mohamud PayID: [id number] [address] [place] [address] Effective: 1997 Policy Number: [id number] Medicare Ayanna Radha Mohamud Expires: 2018 PayID: [id number] [address] [place] [address] Policy Number: [id number] [facility] Ayanna Marquezn Group Number: [id number] [address] PayID: [id number] MYA Hodge [id number] Effective: 2008 Policy Number: [id number] [facility] Bari Mohamud Expires: 2015 Group Number: [id number] [address] PayID: [id number] MYA Hodge [id number] Problems Active Problems Provider Date Granulomatosis with polyangiitis Ricardo Thompson M.D. Onset: 12/05/2012 Chronic pain syndrome Ricardo Thompson M.D. Onset: 12/05/2012 Spinal stenosis of lumbar region Ricardo Thompson M.D. Onset: 05/05/2013 Nervous system disorder due to diabetes Ricardo Thompson M.D. Onset: 05/05/2013 mellitus Atrial fibrillation Gin Alvarado M.D. Onset: 06/22/2013 Cardiac pacemaker in situ Gin Alvarado M.D. Onset: 06/22/2013 Difficulty breathing Gin Alvarado M.D. Onset: 06/22/2013 Chest pain Gin Alvarado M.D. Onset: 06/22/2013 Eruption Gin Alvarado M.D. Onset: 06/22/2013 Chronic atrial fibrillation Gin Alvarado M.D. Onset: 07/22/2015 Obstructive sleep apnea syndrome Gin Alvarado M.D. Onset: 07/22/2015 Complete atrioventricular block Gin Alvarado M.D. Onset: 03/02/2016 Burn of foot Charles Bosch M.D. Onset: 09/20/2016 Varicose veins of lower extremity Charles Bosch M.D. Onset: 09/20/2016 Open fracture of phalanx of foot Jemal Condon MD Onset: 06/02/2018 Late effect of open wound of extremities Jemal Condon MD Onset: 12/16/2018 without tendon injury Ganglion of knee Jemal Condon MD Onset: 12/16/2018 Type 2 diabetes mellitus with diabetic Jemal Condon MD Onset: 12/16/2018 polyneuropathy Acquired deformity of toe Jemal Condon MD Onset: 01/15/2019 Family History Date Family Member(s) Observation Comments General Coronary Artery Disease (CAD) Brother 45 yo [place], Mother hx CAD, DM General No Current Problems Father Chronic Obstructive Pulmonary Disease (COPD) Mother Heart Disease Mother Diabetes Social History Type Date Description Comments Sex Unknown Marital Status Lives With Alone Occupation Disabled Tobacco Use Start: Unknown Never Smoked Cigarettes Smoking Status Reviewed: 01/28/19 Never Smoked Cigarettes ETOH Use Denies alcohol use Tobacco Use Start: Unknown Patient has never smoked Recreational Drug Use Denies Drug Use Exercise Type/Frequency Exercises regularly weights with upper body and leg exercises in chair every other day. walking in mobile home durieng bad weather. Allergies, Adverse Reactions, Alerts Active Allergies Reaction Severity Comments Date Bactrim 04/02/2011 Codeine 04/02/2011 Albuterol 04/02/2011 Hydrocodone 04/02/2011 Sulfa Antibiotics 06/19/2013 Metformin Diarrhea 06/19/2013 Lyrica "spacey" per patient 07/22/2015 Medications Active Medications SIG Qnty Indications Ordering Provider Date Cephalexin 1 tab every six 40tabs M20.5x1 Jeaml Condon MD 01/20/2019 250mg hours Tablets Tramadol HCL 1 tablets every 6 15tabs Omar F 01/16/2019 50mg hours as needed MD Donovan Tablets Doxycycline Hyclate 1 tab every 12 14tabs Jemal Condon MD 01/15/2019 hours for 7 days 100mg Tablets Aspirin Ec 1 by mouth every 30tabs Jemal Condon MD 01/15/2019 325mg day until post op Tablets DR visit Prednisone take 5 mg daily 1000tabs M31.30 Lennox Babcock, 02/25/2018 1mg or as directed M.D. Tablets Compression please use daily 2units Lennox Babcock, 02/25/2018 Stockings as needed for M.D. Misc leg/foot swelling Lisinopril 1 tab by mouth 30tabs Gin Alvarado, 04/13/2014 5mg daily M.D. Tablets Furosemide 1 daily ( taken Ricardo Thompson, 11/17/2010 40 along with M.D. Tablets Potassium) Xopenex 1 unit, nebl, Unknown 1.25mg/3ML every 6 hours as Nebulizer needed for sob Flonase Allergy 2 puffs each nare Unknown Relief every in the 50mcg/Act morning Suspension Toujeo Solostar 50 u @hs daily Unknown 300Unit/ML Solution Pen-Inject Victoza inject 1.2 mg Unknown 18mg/3ML daily in the Solution Pen-Inject morning Tylenol take 1-2 as Unknown 325mg needed every 4 Tablets hours Invokana 1 by mouth every Unknown 300mg day Tablets Humalog before meals on , 100Unit/ML sliding scale has Geno Perrin, Solution needed N.P. Gabapentin 1 cap po bid Pesesky, 300mg Geno Perrin, Capsules N.P. Klor-Con M20 1 tablet po daily 30tabs Unknown 20Meq Tablets ER Warfarin Sodium 1 tablet Shallish, Long, 4mg alternate days MD Tablets 1/2 tablet as directed Buspirone HCL 2 tabs po hs 60tabs Unknown 15mg Tablets Atenolol 1 tab by mouth 180tabs Gin Alvarado, 25mg twice a day M.D. Tablets History Medications Oxycodone HCL 1 tab every 4 20tabs Jemal Condon, 01/15/2019 - 5mg Tablets hours as needed 01/16/2019 for pain Keflex 1 by mouth 4 times 28caps S92.42 Jemal Cnodon, 10/27/2018 - 500mg Capsules a day for 7 days 2D 11/03/2018 Cephalexin 1 tab every six 30tabs S92.41 Jemal Condon, 07/21/2018 - 250mg Tablets hours 2B 07/31/2018 Keflex 1 tab by mouth 20caps Jemal Condon, 06/05/2018 - 500mg Capsules four times a day 04/17/2018 Methotrexate take 3 14tabs M31.30 Lennox Babcock, 12/25/2017 - 2.5mg capsules/tablets M.D. 02/25/2018 Tablets by mouth once weekly Folic Acid take one 90tabs M31.30 Lennox Babcock, 12/25/2017 - 1mg Tablets capsule/tablet M.D. 04/17/2018 daily by mouth Prednisone 1 by mouth every M31.30 Lennox Babcock, 10/11/2017 - 5mg Tablets day M.D. 02/25/2018 M84-Wdhkvl take one 90units R20.8 Lennox Babcock, 05/28/2016 - 1mg Chewtabs capsule/tablet M.D. 08/11/2016 daily sublingually Prednisone take 5 mg daily 180tabs M31.30 Lennox Babcock, 05/28/2016 - 1mg Tablets M.D. 10/11/2017 Compression Stockings please use daily 2units M31.30 Lennox Babcock, 2015 - as needed for M.D. 01/06/2019 Misc edema/ venous stasis changes Losartan Potassium 1 po qd 90tabs 786.2 Gin Alvarado, 10/05/2013 - 25mg M.D. 04/13/2014 Tablets Neurontin 1 po bid 60caps Walter Farooq, 05/25/2013 - 300mg Capsules M.D. 10/04/2013 Lisinopril 1 po qd 30tabs 786.2 Gin Alvarado, 07/01/2012 - 5mg Tablets M.D. 10/05/2013 Carvedilol 1 po bid 60tabs Gin Drewer, 06/18/2012 - 12.5mg Tablets M.D. 12/05/2012 Prednisone 5 po qd 120tabs Ricardo Thompson, 04/02/2011 - 1mg Tablets M.D. 07/21/2015 Cyclobenzaprine HCL 1 p.o bid 60tabs Ricardo Thompson, 11/17/2010 - 5mg M.D. 06/22/2013 Tablets Magnesium Oxide 400 Ricardo Thompson, 11/17/2010 - 400mg M.D. 04/01/2011 Tablets Humulin N Ricardo Thompson, 11/17/2010 - 100Unit/ML M.D. 01/21/2015 Suspension Warfarin Sodium Ricardo Thompson, 11/17/2010 - 4mg M.D. 01/20/2015 Tablets Metoclopramide HCL 1/2 prn Ricardo Thompson, 11/17/2010 - 10mg M.D. 12/05/2012 Tablets Klor-Con M20 every day Ricardo Thompson, 11/17/2010 - 20Meq M.D. 07/21/2015 Tablets ER Omeprazole bid ( Stop taking Ricardo Thompson, 11/17/2010 - 20mg Capsules per patient ) M.D. 04/01/2016 Lisinopril every day 180tabs Ricardo Thompson, 11/17/2010 - 2.5mg Tablets M.D. 04/01/2011 Premarin 1 every Ricardo [facility], 11/17/2010 - 0.9mg Tablets day(patient no M.D. 04/01/2016 longer on) Atenolol 1 three times a Ricardo Thompson, 11/17/2010 - 25mg Tablets day M.D. 04/02/2011 Prednisone 1 by mouth every 30tabs Ricardo Thompson, 11/17/2010 - 5mg Tablets day M.D. 04/02/2011 Mometasone Furoate nasal spray Unknown - 0.1% 01/05/2019 Solution Creon 2 with each meal Unknown - [id number] Caps 01/05/2019 Part Humulin N use 20 units twice Unknown - 100Unit/ML daily 01/05/2019 Suspension Doxycycline Hyclate 1 by mouth twice a Unknown - 100mg day 01/05/2019 Tablets Novolin R Relion sliding scale Unknown - through yuridia 01/05/2019 100Unit/ML Solution Methocarbamol 1 three times a Unknown - 500mg day as needed 07/10/2017 Tablets Toujeo Solostar 66 units daily Am Long Calderón, - (if BS over MD 12/25/2017 300Unit/ML Solution 200,takes humalog) Pen-Inject Invokana take 1 tab in am Long Calderón, - 100mg Tablets 11/26/2017 Novolin N 38 in am, 38 in Unknown - 100Unit/ML p.m. 07/15/2017 Suspension Prednisone 1 tablet po daily M31.30 Long Calderón, - 5mg Tablets Am 05/28/2016 Victoza inject 1.8 mg sc 3pens Unknown - 18mg/3ML Sopn once per day ( med 07/15/[address]Christine Rodriguez,[facility])(no longer taking) Colcrys take 2 tabs first 20tabs Unknown - 0.6mg Tablets now, and then 1 06/22/2013 tab one hour after the 2, and then one tab daily until symptoms resolve Metformin HCL 1 po qd 60tabs Unknown - 500mg 09/09/2013 Tablets Vital Signs Date Vital Result Comment 01/28/2019 1:13pm Height 67 inches 5'7" Weight 218.00 lb BP Systolic 124 mmHg BP Diastolic 86 mmHg Body Temperature 97.8 F Pain Level 2 BMI (Body Mass Index) 34.1 kg/m2 01/23/2019 10:10am Height 67 inches 5'7" Weight 221.00 lb Heart Rate 72 /min Respiratory Rate 16 /min Body Temperature 95.1 F Pain Level 3 BMI (Body Mass Index) 34.6 kg/m2 01/20/2019 9:18am Height 67 inches 5'7" Weight 221.00 lb Heart Rate 74 /min Respiratory Rate 15 /min Body Temperature 96.9 F Pain Level 0 BMI (Body Mass Index) 34.6 kg/m2 01/06/2019 8:56am Height 67 inches 5'7" Weight 221.00 lb with shoes Heart Rate 70 /min BP Systolic Sitting 108 mmHg lue reg cuff BP Diastolic Sitting 64 mmHg lue reg cuff BP Systolic Standing 110 mmHg lue reg cuff BP Diastolic Standing 64 mmHg lue reg cuff Respiratory Rate 12 /min BMI (Body Mass Index) 34.6 kg/m2 Ejection Fraction 55-60% 01/06/2019 8:48am Height 67 inches 5'7" Weight 221.00 lb BMI (Body Mass Index) 34.6 kg/m2 12/30/2018 10:17am Height 67 inches 5'7" Weight 221.00 lb BP Systolic 128 mmHg BP Diastolic 78 mmHg Respiratory Rate 15 /min Body Temperature 94.5 F Pain Level 0 BMI (Body Mass Index) 34.6 kg/m2 12/16/2018 8:58am Height 67 inches 5'7" Weight 221.00 lb BP Systolic 128 mmHg BP Diastolic 78 mmHg Respiratory Rate 16 /min Body Temperature 94.6 F Pain Level 0 BMI (Body Mass Index) 34.6 kg/m2 12/09/2018 10:05am Height 67 inches 5'7" Weight 221.00 lb BP Systolic 128 mmHg BP Diastolic 80 mmHg Respiratory Rate 17 /min Body Temperature 95.3 F Pain Level 0 BMI (Body Mass Index) 34.6 kg/m2 11/04/2018 12:56pm Height 67 inches 5'7" Weight [...] Test Result H/L Range Note Laboratory test 01/15/2019 [facility] Surgical SEE RESULT [address] [place] [address] [phone] Laboratory test 01/15/2019 [facility] Point of Care 162 mg/dL High 70-[address] [place] [address] [phone] Inr/Protime 01/15/2019 [facility] Inr 2.61 High 0.82-1.[address] [place] [address] [phone] Laboratory test 01/15/2019 [facility] Point of Care 139 mg/dL High 70-[address] [place] [address] [phone] Laboratory test 01/15/2018 [facility] C Reactive 4.50 mg/L N < 5.00 [address] [place] [address] [phone] Erythrocyte Sed Rate 56 mm/Hr High 0-30 6 Myeloperoxidase AB <0.2 U 7 Proteinase 3 0.3 U 8 CBC Auto Diff 01/15/2018 [facility] White Blood 7.7 10^3/uL N 3.5-10.[address] [place] [address] [phone] Red Blood Count 4.53 10^6/uL N 4.0-5.4 [...] Cells % 0.1 Comp Metabolic Panel 01/15/2018 [facility] Sodium 141 mmol/L N 139-145 [address] [place] [address] [phone] Potassium 3.9 mmol/L N 3.5-5.0 Chloride 107 [...] Egfr Non- 84.5 >60 Egfr 108.7 >60 9 Protein 01/15/2018 [facility] Total 7.4 g/dL 6.3 - Electrophoresis [address] Protein(Pep) 7.9 [place] [address] [phone] Albumin 2.9 g/dL Abnormal 3.4-4.7 Alpha-1 Globulin 0.2 g/dL 0.1-0.3 Alpha-2 Globulin 1.4 g/dL Abnormal 0.6-1.0 Beta Globulin 1.0 g/dL 0.7-1.2 Gamma Globulin 1.9 g/dL Abnormal 0.6-1.6 Albumin/Globulin Ratio 0.63 Impression See Comment 10 Comp Metabolic Panel 12/10/2017 [facility] Sodium 139 mmol/L N 139-[address] [place] [address] [phone] Potassium 4.5 mmol/L N 3.5-5.0 Chloride 103 [...] Egfr Non- 63.4 >60 Egfr 81.6 >60 11 Laboratory test 12/10/2017 [facility] Creatine 78 U/L N 10- [address] Kinase(CK) [place] [address] [phone] TSH (Thyroid Stim Horm) 2.10 mcIU/mL N 0.34-5.60 C Reactive Protein 11.27 mg/L High < 5.00 12 CBC Auto Diff 12/10/2017 [facility] White Blood 7.5 10^3/uL N 3.5-10.[address] [place] [address] [phone] Red Blood Count 4.62 10^6/uL N 4.0-5.4 [...] Blood Cells % 0.2 Laboratory test 12/10/2017 [facility] Erythrocyte Sed 55 mm/Hr High 0-[address] [place] [address] [phone] Anca AB Ser If 12/10/2017 [facility] C-Anca [place] [address] [phone] P-Anca Positive Abnormal Negative 13 Laboratory test 12/10/2017 [facility] Anti Double <12.3 IU/mL [address] [place] [address] [phone] Urinalysis Profile 12/10/2017 [facility] Urine Color Yellow [address] [place] [address] [phone] Urine Appearance Clear Urine Specific [place] 1.023 N 1.010-1.030 Urine pH 5.0 N [...] Urine Squamous Epithelial Cell Present Abnormal Absent Urine Culture And 12/10/2017 [facility] Urine Culture SEE RESULT [address] [place] [address] [phone] CBC Auto Diff 07/25/2017 [facility] White Blood 8.9 10^3/uL N 3.5-[address] Count 0.8 [place] [address] [phone] Red Blood Count 4.99 10^6/uL N 4.0-5.4 [...] Red Blood Cells % 0 Laboratory test 07/25/2017 [facility] B-Type 153 pg/mL High [address] [place] [address] Peptide BNP [phone] Basic Metabolic 07/25/2017 [facility] Sodium 139 mmol/L N 133- [address] [place] [address] [phone] Potassium 4.9 mmol/L N 3.5-5.0 Chloride 104 mmol/L N 101-111 Co2 Carbon Dioxide 28 mmol/L N 22-32 Anion Gap 7 mmol/L N 2-11 Glucose 151 mg/dL High 70-100 Blood Urea Nitrogen 23 mg/dL N 6-24 Creatinine 0.69 mg/dL N 0.51-0.95 BUN/Creatinine Ratio 33.3 High 8-20 Calcium 10.1 mg/dL N 8.6-10.3 Egfr Non- 86.2 >60 Egfr 110.9 >60 17 Laboratory test 07/25/2017 [facility] Magnesium 2.0 mg/dL N 1.9-2.[address] [place] [address] [phone] Laboratory test 07/23/2017 [facility] Magnesium <pending> finding [address] [place] [address] [phone] TSH (Thyroid Stim Horm) <pending> Laboratory 07/23/2017 [facility] B-Type <pending> test finding [address] [place] [address] Peptide BNP [phone] Laboratory 07/10/2017 [facility] Surgical SEE RESULT [address] [place] [address] [phone] Laboratory 07/10/2017 [facility] Point of Care 173 mg/dL High 70-[address] Glucose 00 [place] [address] [phone] Laboratory 10/29/2016 [facility] Apligraf SEE RESULTS 20, test finding [address] BELO <SEE 21 [place] [address] NOTE> [phone] Laboratory 05/07/2016 [facility] C Reactive 4.41 mg/L N < [address] Protein 5.00 [place] [address] [phone] Erythrocyte Sed Rate 39 mm/Hr High 0-30 Anca AB Ser If 05/07/2016 [facility] C-Anca Negative N Negative [address] [place], [place] [address] [phone] P-Anca Positive N Negative 23 Comp Metabolic Panel 05/07/2016 [facility] Sodium 136 mmol/L N 133-[address] [place] [address] [phone] Potassium 4.4 mmol/L N 3.5-5.0 Chloride 102 [...] 85.1 N >60 Egfr 109.4 N >60 24 CBC Auto Diff 05/07/2016 [facility] White Blood 7.8 10^3/uL N 3.5-10.[address] [place] [address] [phone] Red Blood Count 4.59 10^6/uL N 4.0-5.4 [...] Cells % 0.2 N Laboratory test 05/07/2016 [facility] Creatine 97 U/L N 10- [address] Kinase(CK) [place] [address] [phone] Free Cortisol Serum 0.11 g/dL N 25 Vitamin B12 And 05/07/2016 [facility] Vitamin B12 222 pg/mL N 180-914 [address] [place] [address] [phone] Folic Acid (Folate) > 20.00 ng/mL N >3.99 Vitamin D 1,25 05/07/2016 [facility] Vitamin D, 1,25 46 pg/mL N 18-78 27 And Vitamin D,[address] [place] [address] [phone] Urinalysis 05/07/2016 [facility] Urine Color Yellow N Profile [address] [place] [address] [phone] Urine Appearance Cloudy N Urine Specific [place] 1.023 N 1.010-1.030 Urine pH 5.0 N [...] Urine Squamous Epithelial Cell Present Abnormal Absent Urine Culture And 05/07/2016 [facility] Urine Culture SEE RESULT [address] [place] [address] [phone] Order 03/02/2016 [facility] EKG <pending> [address] [place] [address] [phone] Urinalysis 04/02/2013 [facility] Urine Color Yellow [address] [place] [address] [phone] Urine Appearance Clear Urine Specific [place] 1.031 High 1.010-1.030 Urine Esterase Negative Negative Urine Nitrate Negative Negative Urine Urobilinogen Negative E.U./dL Negative Urine Protein Trace mg/dL Abnormal Negative Urine pH 6.0 5-9 Urine Blood Trace Abnormal Negative Urine Ketones 1+ mg/dL Abnormal Negative Urine Bilirubin Negative Negative Urine Glucose Negative mg/dL Negative Urine Microscopic 04/02/2013 [facility] Urine WBC 1+ (<10 None Seen [address] /hpf) [place] [address] [phone] Urine RBC 1+ (<3 /hpf) None Seen Urine Mucus Present /lpf Absent Urine Epithelial Cells 2+ Squamous /hpf None Seen Bacteria Urine 1+ None Seen Laboratory test 04/02/2013 [facility] C Reactive 1.3 mg/dL High Less than finding [address] Protein 0.5 [place] [address] [phone] Erythrocyte Sed Rate 48 mm/Hr High 0-30 Comp Metabolic Panel 04/02/2013 [facility] Sodium 139 mmol/L 133-[address] [place] [address] [phone] Potassium 4.0 mmol/L 3.5-5.0 Chloride 104 mmol/L [...] Egfr Non- 102.7 >60 Egfr 132.1 >60 29 CBC With 04/02/2013 [facility] White Blood 7.2 10^3/uL 4.8- 10.8 Manual Diff [address] [place] [address] [phone] Red Blood Count 4.17 10^6/uL 4.0-5.4 Hemoglobin [...] 4 % 0-13 RBC Morphology Normal Normal Anca Panel For 04/02/2013 [facility] Myeloperoxidase AB <0.2 U [address] [place] [address] [phone] Proteinase 3 AB <0.2 U 31 Neutrophil Cytoplasmic 04/02/2013 [facility] C-Anca Negative Negative AB [address] [place] [address] [phone] P Anca Negative Negative Anca Reviewed By MD Ajit Thorpeovsk <SEE NOTE> 32 CBC With 01/05/2013 [facility] White Blood 9.3 10^3/uL 4.8- 10.8 Manual Diff [address] [place] [address] [phone] Red Blood Count 4.36 10^6/uL 4.0-5.4 Hemoglobin [...] % 0-6 Basophil % 1 % 0-2 [place] Cells 1+ Laboratory test 01/05/2013 [facility] Erythrocyte Sed 48 mm/Hr High 0-[address] [place] [address] [phone] C Reactive Protein 1.2 mg/dL High Less than 0.5 Neutrophil Cytoplasmic 01/05/2013 [facility] C-Anca Negative Negative AB [address] [place] [address] [phone] P Anca Negative Negative Anca Reviewed By MD Ajit Jacobs <SEE NOTE> 33 Comp Metabolic Panel 01/05/2013 [facility] Sodium 138 mmol/L 133-145 [address] [place] [address] [phone] Potassium 4.2 mmol/L 3.5-5.0 Chloride 101 mmol/L [...] Egfr Non- 86.2 >60 Egfr 110.9 >60 34 Urinalysis 01/05/2013 [facility] Urine Color Yellow [address] [place] [address] [phone] Urine Appearance Clear Urine Specific [place] 1.023 1.010-1.030 Urine Esterase Trace Abnormal Negative Urine Nitrate Negative Negative Urine Urobilinogen Negative E.U./dL Negative Urine Protein Negative mg/dL Negative Urine pH 5.5 5-9 Urine Blood Negative Negative Urine Ketones Negative mg/dL Negative Urine Bilirubin Negative Negative Urine Glucose Trace mg/dL Abnormal Negative Laboratory test 01/05/2013 [facility] Creatine Kinase 65 U/L 0-[address] [place] [address] [phone] TSH (Thyroid Stimulating Horm) 1.30 miu/mL 0.34-5.60 Free T4 1.09 ng/mL 0.61-1.24 Vitamin B12 227 pg/mL 180-914 Urine Microscopic 01/05/2013 [facility] Urine WBC 1+ (<10 None Seen [address] /hpf) [place], [place] [address] [phone] Urine RBC None Seen None Seen Urine Mucus Present /lpf Absent Urine Epithelial Cells 3+ Squamous /hpf None Seen Bacteria Urine 2+ None Seen Laboratory test 06/16/2012 [facility] B Type 153.0 High 0-[address] Natriuretic pg/[place] [address] Peptide [phone] Basic Metabolic 06/16/2012 [facility] Sodium 136 133-[address] mmol/[place] [address] [phone] Potassium 4.3 mmol/L 3.5-5.0 Chloride 99 mmol/L Low 101-111 Co2 Carbon Dioxide 29.0 mmol/L 22-32 Anion Gap 8.0 mmol/L 2-11 Glucose 203 mg/dL High 70-100 Blood Urea Nitrogen 18 mg/dL 6-24 Creatinine 0.60 mg/dL 0.50-1.40 BUN/Creatinine Ratio 30.0 High 8-20 Calcium 9.2 mg/dL 8.1-9.9 Egfr Non- 103.0 >60 Egfr 132.5 >60 35 1 SEE RESULT BELOW Name: AYANNA MOHAMUD : [address]: Jemal Condon MD Acct: [id number] Unit: [id number] AGE: 64 Location: [place] Re01/15/19 SEX: F [place] [facility] [place] [id number] [place]HEL[place]: 01/15/19- SUBM DR: Jemal Condon MD REQ: [id number] RECD: 01/15/19 STATUS: SOUT _ ORDERED: Artemio, LEVEL 3, LEVEL 4 ADDENDUM Addendum: Sections of bone (1A) on part 1 demonstrate chronic osteomyelitis. Addendum Signed (signature on file) Ajit Lamb MD 1502 FINAL DIAGNOSIS 1. Right great toe, amputation: -- Acral skin with chronic stasis. -- Soft tissue margins of resection viable. -- Bone pending decal 2. Knee, right, excision: -- Ganglion cyst. PRE-OPERATIVE DIAGNOSIS Type 2 diabetes GROSS DESCRIPTION 1. The specimen is received in formalin labeled, Right Great Toe, and consists of a 3.5 x 2.9 x 1.9 cm disarticulated digit partially surfaced by a paniagua-white thickened unguis. The margin of resection appears viable. There are two probable surgical defects measuring 0.2 x 0.1 cm and 0.6 x 0.1 cm on either side of the unguis. The remaining skin is smooth to wrinkled to focally scaly paniagua-pink. The skin margin is inked and medical field representative sections CONTINUED ON NEXT PAGE DEPARTMENT OF PATHOLOGY, [address] [place] [address] Ajit Lamb M.D. Director [facility] # [id number] RUN DATE: 01/22/19 [facility] LAB LIVE PAGE 2 Patient: AYANNA MOHAMUD [id number] (Continued) GROSS DESCRIPTION (Continued) are submitted in cassettes A and B to include bone following decalcification in cassette A. 2. The specimen is received in formalin labeled, Right Knee Ganglion Cyst, and consists of a 5.0 x 3.4 x 1.0 cm paniagua-pink shaggy focally disrupted rubbery unilocular cyst containing paniagua-pink mucus. The specimen is serially sectioned and medical field representative sections are submitted in one cassette. Signed by and Reported on: Briseyda Conley MD 01/16/19 1341 END OF REPORT DEPARTMENT OF PATHOLOGY, [address] [place] [address] Ajit Lamb M.D. 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 Suggest further testing for anti-myeloperoxidase (anti-MPO) antibodies, if clinically indicated. ADDITIONAL INFORMATION This test was developed and its performance characteristics determined by [facility] in a manner consistent with CLIA requirements. This test has not been cleared or approved by the U.S. Food and Drug Administration. Test Performed by: [address] [address] 14 REFERENCE VALUE <30.0 (Negative) Test Performed by: [facility] [address] [place] [address] 15 SEE RESULT BELOW Name: AYANNA MOHAMUD : [address]: Lennox Babcock MD Acct: [id number] Unit: [id number] AGE: 62 Location: LAB Re12/10/17 SEX: F Status: REG REF SPEC: [id number] CHELSEA: 12/10/17-[address]: Lennox Babcock MD REQ: [id number] RECD: 12/10/17 STATUS: COMP _ SOURCE: URINE SPDESC: ORDERED: Urine Culture Procedure Result Reported Site Urine Culture Final 12/11/17- 1338 ML Organism 1 AEROCOCCUS URINAE [place] Count 75-100,000 (Many) CFU/ML Aerococcus isolates are too fastidious for routine susceptibility studies. Aerococcus are usually susceptible to penicillin, amoxicillin, piperacillin, cefipime, rifampin and vancomycin. Moderate to good activity occurs with the quinolones, tetracyclines and erythromycin. (Melecio's Color [place] and Textbook of Diagnostic Microbiology 6th Ed. 2006, p. 705-6.) * ML - Main Lab . END OF REPORT DEPARTMENT OF PATHOLOGY, [address] [place] [address] Ajit Lamb M.D. Director [facility] # [id number] 16 >100 to <200 pg/mL: likely compensated congestive heart failure (CHF) 200 to 400 pg/mL: likely moderate CHF >400 pg/mL: likely moderate to severe CHF 17 Because ethnic data is not always readily [...] 15-29 5 Kidney failure <15 (or dialysis) 18 SEE RESULT BELOW Name: AYANNA MOHAMUD : [address]: Gin Alvarado MD Acct: [id number] Unit: [id number] AGE: 62 Location: [facility] Re07/10/17 SEX: F Status: REG REF SPEC: [id number] CHELSEA: 07/10/17-1030 [facility] DR: Gin Alvarado MD REQ: [id number] RECD: 07/10/171144 STATUS: SOUT _ ORDERED: LEVEL 1 FINAL DIAGNOSIS Pacemaker generator, removal: Foreign body (pacemaker generator) (Gross diagnosis). PRE-OPERATIVE DIAGNOSIS Pacemaker generator end of life GROSS DESCRIPTION The specimen is received fresh with no source identified and a requisition labeled, Pacemaker Generator, and consists of a 5.0 x 4.5 x 0.7 cm silver metallic medical staff services manager. The following inscription is identified: eSighttronic Revo MRI SureScan SN [id number] OAE-DDDR CH. Per established hospital medical staff protocol, no tissue is submitted. Gross only. Signed (signature on file) Briseyda Conley MD 11/23 0828 END OF REPORT * ML=Testing performed at Main Lab DEPARTMENT OF PATHOLOGY, [address] [place] [address] Ajit Lamb M.D. 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 Suggest further testing for anti-myeloperoxidase (anti-MPO) antibodies, if clinically indicated. Test Performed by: [place] [address] Organ Pipe Voicer: Jaspreet Sanchez II, M.D., Ph.D. 24 Because ethnic data is not always readily [...] 15-29 5 Kidney failure <15 (or dialysis) 25 Adult Reference Ranges for Cortisol, Free, LC/MS/MS: 8:00 - 10:00 AM 0.07-0.93 mcg/dL 4:00 - 6:00 PM 0.04-0.45 mcg/dL 10:00 - 11:00 PM 0.04-0.35 mcg/dL This test was developed and its analytical performance characteristics have been determined by [facility]. It has not been cleared or approved by FDA. This assay has been validated pursuant to the CLIA regulations and is used for clinical purposes. Test Performed by: [facility] [address] [place] [address] 26 Normal Range 180 to 914 Indeterminate Range 145 to 180 Deficient Range <145 27 Test Performed by: [place] [address] Organ Pipe Voicer: Jaspreet Sanchez II, M.D., Ph.D. 28 SEE RESULT BELOW Name: AYANNA MOHAMUD : [address]: Lennox Babcock MD Acct: [id number] Unit: [id number] AGE: 61 Location: LAB Re05/07/16 SEX: F Status: REG REF SPEC: [id number] CHELSEA: 05/07/16-[address]: Lennox Babcock MD REQ: [id number] RECD: 05/07/167009 STATUS: COMP _ SOURCE: URINE SPDESC: ORDERED: Urine Culture Procedure Result Reported Site Urine Culture Final 05/08/16- 1618 ML No growth of clinically significant organisms * ML - MAIN LAB ([facility]) . END OF REPORT * ML=Testing performed at Main Lab DEPARTMENT OF PATHOLOGY, [address] [place] [address] Ajit Lamb M.D. Director [facility] # [id number] 29 Because ethnic data is not always [...] 5 Kidney failure <15 (or dialysis) 30 -- REFERENCE VALUE -- <0.4 (Negative) 31 -- REFERENCE VALUE -- <0.4 (Negative) Test Performed by: [address] [address] Organ Pipe Voicer: Brandon Perez III, M.D. 32 Ajit Lamb 33 Ajit Lamb 34 Because ethnic data is not always readily [...] 15-29 5 Kidney failure <15 (or dialysis) 35 Because ethnic data is not always readily [...] (or dialysis) Procedures Date Code Description Status 01/15/2019 63797 Amputation,Toe;Interphalangeal Joint Completed 01/15/2019 20864 Amputation,Toe;Interphalangeal Joint Completed 01/15/2019 25517 Excision Lesion Meniscus/Capsule Knee Completed 01/15/2019 67501 Excision Lesion Meniscus/Capsule Knee Completed 01/06/2019 99159 EKG Tracing & Interpretation Completed 12/18/2018 52156 Pacemaker Check Remote Up To 90Days Single,Dual,Multiple Completed Lead 12/18/2018 77856 Pacemaker Check Remote Up To 90Days Single,Dual,Multiple Completed Lead 12/18/2018 98496 Icd Eval Sing,Dual,Multi Lead Remote Recpt Transm Tech Rev Completed Tech S 12/18/2018 75510 Icd Eval Sing,Dual,Multi Lead Remote Recpt Transm Tech Rev Completed Tech S 07/18/2018 16715 EKG Tracing & Interpretation Completed 07/10/2018 43726 Removal Devitalization Tissue Wound Less Than Equal 20 Completed Square CM 06/19/2018 23999 Application Skin Substitute Graft Trunk,Arms Lets Up To Completed 100 SQ CM 06/12/2018 50872 Pace Maker Eval W/Iterative Adjment Dual Lead Completed 06/12/2018 55735 Pace Maker Eval W/Iterative Adjment Dual Lead Completed 06/05/2018 37674 Removal Devitalization Tissue Wound Less Than Equal 20 Completed Square CM 05/29/2018 64538 Removal Devitalization Tissue Wound Less Than Equal 20 Completed Square CM 05/15/2018 88098 Removal Devitalization Tissue Wound Less Than Equal 20 Completed Square CM 04/29/2018 23371 Removal Devitalization Tissue Wound Less Than Equal 20 Completed Square CM 04/22/2018 66617 Removal Devitalization Tissue Wound Less Than Equal 20 Completed Square CM 04/15/2018 14213 Removal Devitalization Tissue Wound Less Than Equal 20 Completed Square CM 11/26/2017 57406 Pace Maker Eval W/Iterative Adjment Dual Lead Completed 11/26/2017 53624 Pace Maker Eval W/Iterative Adjment Dual Lead Completed 10/21/2017 09548 Pace Maker Eval W/Iterative Adjment Dual Lead Completed 10/21/2017 12229 Pace Maker Eval W/Iterative Adjment Dual Lead Completed 10/11/2017 62045 EKG Tracing & Interpretation Completed 08/29/2017 56539 Pace Maker Eval W/Iterative Adjment Dual Lead Completed 08/29/2017 37807 Pace Maker Eval W/Iterative Adjment Dual Lead Completed 07/23/2017 68199 Pace Maker Eval W/Iterative Adjment Dual Lead Completed 07/23/2017 19592 Pace Maker Eval W/Iterative Adjment Dual Lead Completed 07/16/2017 00392 Pace Maker Eval W/Iterative Adjment Dual Lead Completed 07/16/2017 43235 Pace Maker Eval W/Iterative Adjment Dual Lead Completed 07/10/2017 53249 Removal With Replacement Dual Lead System Pulse Generator Completed 07/08/2017 09226 EKG, Interpretation Only Completed 07/08/2017 09203 Stress Test Supervsn W/Out I/R Completed 07/08/2017 61517 Treadmill Interp/Report Only Completed 07/08/2017 25196 ECHO Transthorasic Realtime 2D W Doppler & Color Flow Hosp Completed 07/03/2017 57274 Pace Maker Eval W/Iterative Adjment Dual Lead Completed 07/03/2017 31624 Pace Maker Eval W/Iterative Adjment Dual Lead Completed 05/10/2017 15673 Pace Maker Eval W/Iterative Adjment Dual Lead Completed 04/09/2017 29080 Pace Maker Eval W/Iterative Adjment Dual Lead Completed 01/15/2017 79873 Interrogation Device Eval In Person W/ Completed Analysis,Single,Dual,Mul 11/13/2016 72567 Removal Devitalization Tissue Wound Less Than Equal 20 Completed Square CM 10/30/2016 97651 Application Skin Graft Face,Scalp,Eyelids,Mouth, Neck Up Completed To 100CM 10/23/2016 96380 Burn Treatment W/O Anes Small Completed 10/17/2016 05771 Pace Maker Eval W/Iterative Adjment Dual Lead Completed 10/16/2016 26467 Burn Treatment W/O Anes Small Completed 10/09/2016 65133 Burn Treatment W/O Anes Small Completed 09/25/2016 69042 Burn Treatment W/O Anes Small Completed 09/19/2016 03156 Debridement Skin,& sq Tissue Completed 03/09/2016 20029 Interrogation Device Eval In Person W/DR Completed Analysis,Single,Dual,Mul 03/02/2016 12820 Interrogation Device Eval In Person W/ Completed Analysis,Single,Dual,Mul 02/13/2016 56565 Pace Maker Eval W/Iterative Adjment Dual Lead Completed 02/13/2016 65617 ECHO Transthoracic, Real-Time 2D With Doppler And Color Completed Flow 07/14/2015 31838 Pace Maker Eval W/Iterative Adjment Dual Lead Completed 12/23/2014 04885 Mobile Cardiovascular Telemetry Over 24 HR Up To 30 Days Completed 12/14/2014 23864 Pace Maker Eval W/Iterative Adjment Dual Lead Completed 06/01/2014 86650 Interrogation Device Eval In Person W/ Completed Analysis,Single,Dual,Mul 03/24/2014 64515 Pace Maker Eval W/Iterative Adjment Dual Lead Completed 08/21/2013 07071 Pace Maker Eval W/Iterative Adjment Dual Lead Completed 06/25/2013 88204 Pace Maker Eval W/Iterative Adjustment Single Lead Completed 06/22/2013 64866 Pace Maker Eval W/Iterative Adjment Dual Lead Completed 05/25/2013 11087 Rad Exam; Foot Comp Completed 05/25/2013 62789 Rad Exam; Ankle Comp Completed 05/04/2013 08563 Pace Maker Eval W/Iterative Adjment Dual Lead Completed 12/17/2012 37705 ECHO Transthoracic, Real-Time 2D With Doppler And Color Completed Flow 10/02/2012 06429 Nerve Conduction 05-06 Studies Completed 10/02/2012 07305 Needle Electromyography Complete, Five Or More Muscles Completed Studied 07/14/2012 79707 Pace Maker Eval W/Iterative Adjment Dual Lead Completed 06/27/2012 46696 EKG Tracing & Interpretation Completed Encounters Type Date Location Provider Dx Diagnosis Office Visit 01/06/2019 [facility] Tawny Mason, I48.2 Chronic atrial 9:00a Of Dispatcher Service Or Work N.P. fibrillation I49.5 Sick sinus syndrome Z95.0 Presence of cardiac pacemaker Office Visit 12/30/2018 10:15a [facility] Jemal Condon, Z79.4 ad terminal makeup operator Services Of (current) use of C.M.A. insulin E11.40 Type 2 diabetes mellitus with diabetic neuropathy, unsp S91.111D Lac w/o fb of right great toe w/o damage to nail, subs M67.461 Ganglion, right knee Office Visit 12/16/2018 9:00a [facility] Jemal Condon, S91.111D Lac w/o fb of Services Of right great C.M.A. toe w/o damage to nail, subs S91.112D Laceration w/o fb of left great toe w/o damage to nail, subs Z79.4 ad terminal makeup operator (current) use of insulin E11.40 Type 2 diabetes mellitus with diabetic neuropathy, unsp M67.461 Ganglion, right knee Office Visit 12/09/2018 10:00a [facility] Jemal Condon, Z79.4 ad terminal makeup operator Services Of (current) use of C.M.A. insulin E11.42 Type 2 diabetes mellitus with diabetic polyneuropathy S91.111S Lac w/o fb of right great toe w/o damage to nail, sequela S92.422D Disp fx of dist phalanx of l great toe, 7thD Office Visit 12/04/2018 [facility] S92.401G Displaced unsp 12:52p Assoc,sarah Barnett, DECORATOR STORE fx right great Hospitalists toe, subs for fx w delay heal Office Visit 12/03/2018 [facility] S92.401G Displaced unsp 12:52p Assocsarah NP fx right great Hospitalists toe, subs for fx w delay heal I48.91 Unspecified atrial fibrillation I50.30 Unspecified diastolic (congestive) heart failure E11.49 Type 2 diabetes w oth diabetic neurological complication 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 diabetic neuropathy, unsp L03.032 Cellulitis of left toe Office Visit 12/02/2018 1:03p Orth[facility] Mya Constantino S92.421D Disp fx of Services Of Ilene.MIesha Alejandre dist phalanx of r great toe, 7thD L03.031 Cellulitis of right toe Office Visit 12/02/2018 12:51p [facility] S92.401G Displaced unsp Assoc,sarah Armstrong M.D. 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 right great toe w/o damage to nail, init Office Visit 12/01/2018 12:51p [facility] S92.401G Displaced uns Asssarah vidal M.D. 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 Z79.4 ad terminal makeup operator (current) use of insulin Office Visit 11/30/2018 1:34p Orthopedic Mya Constantino S92.421A Disp fx of Services Of Brayden Alejandre distal phalanx of right great toe, init E11.42 Type 2 diabetes mellitus with diabetic polyneuropathy S91.111S Lac w/o fb of right great toe w/o damage to nail, sequela A49.9 Bacterial infection, unspecified Office Visit 11/29/2018 [facility] Lewis Landis S92.401G Displaced unsp 12:50p Assoc,sarah Nguyen M.D.,FACP fx right great Hospitalists toe, subs for fx w delay heal Z79.4 custodial (current) use of insulin E11.49 Type 2 diabetes w oth diabetic neurological complication 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 of l great toe, 7thD Office Visit 10/27/2018 11:30a Orthopedic Jemal Condon S92.422D Disp fx of Services Of dist phalanx C.M.A. of l great toe, 7thD Office Visit 10/20/2018 1:15p Orthopedic Jemal Condon, S92.422A Disp fx of Services Of distal phalanx C.M.A. of left great toe, init Office Visit 07/24/2018 11:00a [facility] Tapan Jonas E11.622 Type 2 AT [facility] Pili Elena diabetes mellitus with other skin ulcer L97.821 Non-prs chr ulcer oth prt l low leg limited to brkdwn skin E11.40 Type 2 diabetes mellitus with diabetic neuropathy, unsp I10 Essential (primary) hypertension Office Visit 07/21/2018 11:00a Orthopedic Jemal Condon, Z79.4 custodial Services Of (current) use of C.M.A. insulin E11.40 Type 2 diabetes mellitus with diabetic neuropathy, unsp S92.422D Disp fx of dist phalanx of l great toe, 7thD S90.421A Blister (nonthermal), right great toe, initial encounter L53.9 Erythematous condition, unspecified Office Visit 07/18/2018 10:40a [facility] Gin Alvarado, I48.2 Chronic atrial Of Dispatcher Service Or Work AT [facility] Pili fibrillation I44.2 Atrioventricular block, complete Z95.0 Presence of cardiac pacemaker E11.8 Type 2 diabetes mellitus with unspecified complications C88.0 Waldenstrom macroglobulinemia Office Visit 07/03/2018 11:00a Wound Care Tapan Jonas L97.821 Non-prs chr Center AT [facility] Andrea Elena. ulcer oth prt l low leg limited to brkdwn skin E11.622 Type 2 diabetes mellitus with other skin ulcer E11.621 Type 2 diabetes mellitus with foot ulcer E11.40 Type 2 diabetes mellitus with diabetic neuropathy, unsp Office Visit 06/16/2018 1:30p Orthopedic Jemal Condon, S92.425D Nondisp fx of Services Of dist phalanx of C.M.A. l great toe, 7thD Office Visit 06/09/2018 1:00p Orthopedic Jemal Condon, W18.49xA Oth slipping, Services Of tripping [...] falling, init Office Visit 06/02/2018 1:00p Linda Condon, S92.412B Disp fx of Services Of prox phalanx C.M.A. of left great toe, init for opn fx Office Visit 04/15/2018 8:00a [facility] BlancaAlyssa E11.621 Type 2 AT [facility] Pili Elena diabetes mellitus with foot ulcer E11.622 Type 2 diabetes mellitus with other skin ulcer L97.511 Non-prs chronic ulcer oth prt r foot limited to brkdwn skin L97.821 Non-prs chr ulcer oth prt l low leg limited to brkdwn skin Office Visit 02/25/2018 [facility] Lennox M31.30 Erickson's 8:40a Services Of Jerry Babcock M.D. granulomatosis without renal involvement Z79.52 custodial (current) use of systemic steroids E13.42 Oth diabetes mellitus with diabetic polyneuropathy R53.1 Weakness I83.891 Varicose veins of r low extrem with other complications Office Visit 12/25/2017 [facility] Lennox M31.30 Erickson's 4:20p Services Of Jerry Babcock M.D. granulomatosis without renal involvement Z79.52 ad terminal makeup operator (current) use of systemic steroids E13.42 Oth diabetes mellitus with diabetic polyneuropathy R53.1 Weakness Office Visit 12/02/2017 [facility]umat[facility] Lennox M31.30 Erickson's 3:20p Services Of Jerry Babcock M.D. granulomatosis without renal involvement Z79.52 custodial (current) use of systemic steroids E13.42 Oth diabetes mellitus with diabetic polyneuropathy R53.1 Weakness Office Visit 10/11/2017 11:20a [facility] Gin Alvarado I48.2 Chronic atrial Of Dispatcher Service Or Work AT [facility] MAlyssaDAlyssa fibrillation Z95.0 Presence of cardiac pacemaker R06.02 Shortness of breath I44.2 Atrioventricular block, complete Office Visit 07/23/2017 1:30p [facility] Renata Cano I48.2 Chronic atrial Of [facility] [place] fibrillation R06.02 Shortness of breath Z95.0 Presence of cardiac pacemaker Office Visit 07/16/2017 3:00p [facility] JOSÉ Hackett Z95.0 Presence of Of [facility] cardiac pacemaker I48.2 Chronic atrial fibrillation R06.02 Shortness of breath Office Visit 07/08/2017 3:04p [facility] Jesus Landis R07.9 Chest pain, Of Jerry Toscano M.D. unspecified R06.02 Shortness of breath Z95.0 Presence of cardiac pacemaker Office Visit 07/08/2017 [facility] Nikolai Kirk I48.2 Chronic atrial 7:34a sarah Tim II, M.D. fibrillation Hospitalists E11.9 Type 2 diabetes mellitus without complications R07.9 Chest pain, unspecified Z95.0 Presence of cardiac pacemaker Office Visit 06/11/2017 9:00a [facility] Gin Alvarado I48.2 Chronic atrial Of [facility] Pili fibrillation Z95.0 Presence of cardiac pacemaker Office Visit 11/27/2016 10:36a Wound Care Tapan Jonas E11.621 Type 2 diabetes Center AT [facility] Pili Elena mellitus with foot ulcer L97.512 Non-prs chronic ulcer oth prt right foot w fat layer exposed Office Visit 11/06/2016 4:18p Wound Care Tapan Jonas E11.621 Type 2 diabetes Center AT [facility] Pili Elena mellitus with foot ulcer T25.321A Burn of third degree of right foot, initial encounter L97.512 Non-prs chronic ulcer oth prt right foot w fat layer exposed X19.xxxA Contact with other heat and hot substances, init encntr Office Visit 10/17/2016 10:00a [facility] JOSÉ Hackett Z95.0 Presence of Of [facility] cardiac pacemaker I48.2 Chronic atrial fibrillation R42 Dizziness and giddiness Office Visit 09/20/2016 1:30p [facility] Charles Palomino T25.021A Burn of Medicine Of Jerry Bosch M.D. unspecified degree of right foot, initial encounter I83.93 Asymptomatic varicose veins of bilateral lower extremities Office Visit 09/12/2016 10:00a Wound Care Catarino Cazares E11.621 Type 2 diabetes Center AT [facility] MD Marlene mellitus with foot ulcer T25.321A Burn of third degree of right foot, initial encounter L97.512 Non-prs chronic ulcer oth prt right foot w fat layer exposed Office Visit 09/06/2016 [facility] E11.42 Type 2 diabetes 2:13p Assoc,sarah Armstrong M.D. mellitus with Hospitalists diabetic polyneuropathy L03.115 [...] Babcock M.D. granulomatosis without renal involvement Z79.52 custodial (current) use of systemic steroids R53.1 Weakness R20.8 Other disturbances of skin sensation Office Visit 05/07/2016 [facility] Lennox M31.30 Erickson's 11:00a Services Of Jerry Babcock M.D. granulomatosis without renal involvement Z79.52 custodial (current) use of systemic steroids R53.1 Weakness R20.8 Other disturbances of skin sensation Z79.4 ad terminal makeup operator (current) use of insulin E11.42 Type 2 diabetes mellitus with diabetic polyneuropathy Office Visit 04/02/2016 10:30a [facility] JOSÉ Hackett Z95.0 Presence of Of [facility] cardiac pacemaker I48.2 Chronic atrial fibrillation R06.02 Shortness of breath Office Visit 03/02/2016 9:45a [facility] Gin Alvarado I48.2 Chronic atrial Of Jerry M.D. 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 cardiac pacemaker I48.2 Chronic atrial fibrillation R06.02 Shortness of breath R61 Generalized hyperhidrosis G47.33 Obstructive sleep apnea (adult) (pediatric) Office Visit 01/21/2015 11:00a [facility] Gin Alvarado, 780.4 Dizziness & Of Dispatcher Service Or Work M.D. Giddiness V45.01 Cardiac Pacemaker In Situ Postsurgical 427.31 Atrial Fibrillation Office Visit 06/01/2014 11:15a [facility]in Alvarado 427.31 Atrial Cardiology Of M.D. Fibrillation Dispatcher Service Or Work V45.01 Cardiac Pacemaker In Situ Postsurgical 786.59 Pain Chest Other Office Visit 04/14/2014 9:00a [facility] Gin Alvarado 427.31 Atrial Cardiology Of M.D. Fibrillation Dispatcher Service Or Work V45.01 Cardiac Pacemaker In Situ Postsurgical 786.59 Pain Chest Other Office Visit 10/05/2013 8:45a [place], 427.31 Atrial Cardiology Of M.D. Fibrillation [facility] V45.01 Cardiac Pacemaker In Situ Postsurgical 446.4 [place] Granulomatosis 786.2 Cough Office Visit 06/22/2013 10:15a [place] Gin Alvarado, 427.31 Atrial Cardiology Of M.D. Fibrillation [facility] V45.01 Cardiac Pacemaker In Situ Postsurgical 786.09 [...] Ricardo Thompson, 446.4 [place] 11:40a Services Of [facility] M.D. Granulomatosis 338.4 Chronic Pain Syndrome 724.02 Spinal Stenosis, Lumbar Region, W/O Neurogenic Claudication 250.60 Diabetes W/ Neurological Manifestations Type II Controlled Office Visit 04/01/2013 Rheumatology Zsofidaniel 446.4 [place] 2:00p [facility] JOS Blakely Granulomatosis 338.4 Chronic Pain Syndrome V58.69 Medications Senior Living (Current) Use Encounter 354.0 Carpal Tunnel Syndrome 250.60 Diabetes W/ Neurological Manifestations Type II Controlled 453.6 Venous Embolism&Thrombosis,Superficial Vessels [place] Office [place] 01/01/2013 [place], 250.60 Diabetes W/ 11:30a Neurologic MMajor Neurological [facility] Manifestations Type II Controlled 357.2 Polyneuropathy In Diabetes 724.02 Spinal Stenosis, Lumbar Region, W/O Neurogenic Claudication 728.87 Muscle Weakness Generalized Office Visit 12/05/2012 Rheumatology Ricardo Thompson, 446.4 [place] 2:20p [facility] MAlyssaD. Granulomatosis 338.4 Chronic Pain Syndrome Office Visit 12/02/2012 Mauro Alvarado, 786.09 Dyspnea & 10:45a Cardiology Of M.D. Respiratory Dispatcher Service Or Work Abnormalities Other 786.59 Pain Chest Other 787.02 Nausea Alone 401.9 Hypertension Unspec Office Visit 10/02/2012 [place], 250.60 Diabetes W/ 1:00p Neurologic M.D. 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 Fibrillation [facility] 786.09 Dyspnea & Respiratory Abnormalities Other Office Visit 06/27/2012 12:00p [place] Gin Alvarado 427.31 Atrial Cardiology Of M.D. Fibrillation Dispatcher Service Or Work AT [facility] 786.05 Shortness Of Breath Office 08/10/2011 Orthopedic [place] 354.0 Carpal Tunnel Visit 8:45a Services Of Pili Rolon Syndrome C.M.A. Office 04/16/2011 Orthopedic [place] 354.0 Carpal Tunnel Visit 10:30a Services Of Pili Rolon Syndrome C.M.A. 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 Fibrillation Hospitalists Office Visit 06/05/2009 [facility] [place] 530.81 Esophageal Reflux 2:15a Assoc,sarah Hernadez M.D. Hospitalists 786.50 Pain Chest Unspec 790.99 Blood Examination Other Nonspecific Findings 427.31 Atrial Fibrillation Office Visit 06/04/2009 12:45a [facility] Lewis Landis 786.50 Pain Chest Assoc,sarah Nguyen M.D. 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 at [place] [facility]01/28/2019 - Jemal Condon, MDM20.5x1 Other deformities of toe( s) (acquired), right footFollow up:Follow Up: 1 weekM67.461 Ganglion, right knee
--- OUTSIDE RECORDS SUMMARY | 2019-02-20 16:28 | XMS REPORT | Continuity of Care Document ---
:1955 External Reference #:[id number] Author Name VandanaFransisca ortega Care Team Providers Name Role Phone Long Calderón MD Primary Care Physician Unavailable Payers Date Identification Numbers Payment Provider Subscriber Policy Number: [id number] Medicare Ayanna Radha Marquezn PayID: [id number] [address] [place] [address] Effective: 1997 Policy Number: [id number] Medicare Ayannatrey Marquezn Expires: 2018 PayID: [id number] [address] [place] [address] Policy Number: [id number] [facility] Ayanna J Cade Group Number: [id number] [address] PayID: [id number] MYA Hodge [phone] Effective: 2008 Policy Number: [id number] [facility] Bari Marquezcris HOGAN Expires: 2015 Group Number: [id number] [address] PayID: [id number] MYA Hodge [id number] Problems Active Problems Provider Date Granulomatosis with [...] Coronary Artery Disease (CAD) Brother 45 yo [place], Mother hx CAD, DM General No Current Problems Father Chronic Obstructive Pulmonary Disease (COPD) Mother Heart Disease Mother Diabetes Social History Type Date Description Comments Sex Unknown Marital Status Lives With Alone Occupation Disabled Tobacco Use Start: Unknown Never Smoked Cigarettes Smoking Status Reviewed: 02/06/19 Never Smoked Cigarettes ETOH Use Denies alcohol [...] Medications SIG Qnty Indications Ordering Provider Date Tramadol HCL 1 tablets every 6 15tabs [...] 20Meq Tablets ER Warfarin Sodium 1 tablet Long Calderón, 4mg alternate days MD Tablets 1/2 tablet as directed Buspirone HCL 2 tabs po hs 60tabs Unknown 15mg Tablets Atenolol 1 tab by mouth 180tabs Gincris Alvarado, 25mg twice a day M.D. Tablets History Medications Cephalexin 1 tab every six 40tabs M20.5x1 Jemal Roseanna, 01/20/2019 - 250mg hours 01/30/2019 Tablets Oxycodone HCL 1 tab every 4 20tabs Jemal Roseanna, 01/15/2019 - 5mg hours as needed MD 01/16/2019 Tablets for pain Keflex 1 by mouth 4 times 28caps S92.422D Jemal Roseanna, 10/27/2018 - 500mg Capsules a day for 7 days 11/03/2018 Cephalexin 1 tab every six 30tabs S92.412B Jemal Roseanna, 07/21/2018 - 250mg hours 07/31/2018 Tablets Keflex 1 tab by mouth 20caps Jemal Roseanna, 06/05/2018 - 500mg Capsules four times a day 04/17/2018 Methotrexate take 3 14tabs M31.30 Lennox Babcock, 12/25/2017 - 2.5mg capsules/tablets M.D. 02/25/2018 Tablets by mouth once weekly Folic Acid take one 90tabs M31.30 Lennox Babcock, 12/25/2017 - 1mg Tablets capsule/tablet M.D. 04/17/2018 daily by mouth Prednisone 1 by mouth every M31.30 Lennox Babcock, 10/11/2017 - 5mg Tablets day M.D. 02/25/2018 O50-Wnnlkw take one 90units R20.8 Lennox Babcock, 05/28/2016 [...] Tablets Neurontin 1 po bid 60caps Walter 05/25/2013 - 300mg Pili Farooq 10/04/2013 Capsules Lisinopril 1 po qd 30tabs 786.2 Gin Alvarado, 07/01/2012 - 5mg Tablets M.D. 10/05/2013 Carvedilol 1 po bid 60tabs Gin Jenny, 06/18/2012 - 12.5mg M.D. 12/05/2012 Tablets Prednisone 5 po qd 120tabs Ricardo Thompson, 04/02/2011 - 1mg Tablets M.D. 07/21/2015 Cyclobenzaprine HCL 1 p.o bid 60tabs Ricardo Thompson, 11/17/2010 - 5mg M.D. 06/22/2013 Tablets Magnesium Oxide 400 Ricardo Thompson, 11/17/2010 - M.D. 04/01/2011 400mg Tablets Humulin N Ricardo Thompson, 11/17/2010 - 100Unit/ML M.D. 01/21/2015 Suspension Warfarin Sodium Ricardo Thompson, 11/17/2010 - 4mg M.D. 01/20/2015 Tablets Metoclopramide HCL 1/2 prn Ricardo Thompson, 11/17/2010 - 10mg M.D. 12/05/2012 Tablets Klor-Con M20 every day Ricardo Thompson, 11/17/2010 - 20Meq M.D. 07/21/2015 Tablets ER Omeprazole bid ( Stop taking Ricardo Thompson, 11/17/2010 - 20mg per patient ) M.D. 04/01/2016 Capsules Lisinopril every day 180tabs Ricardo Thompson, 11/17/2010 - 2.5mg M.D. 04/01/2011 Tablets Premarin 1 every Ricardo Thompson, 11/17/2010 - 0.9mg Tablets day(patient no M.D. 04/01/2016 longer on) Atenolol 1 three times a Ricardo Thompson, 11/17/2010 - 25mg Tablets day M.D. 04/02/2011 Prednisone 1 by mouth every 30tabs Ricardo Thompson, 11/17/2010 - 5mg Tablets day M.D. 04/02/2011 Mometasone Furoate nasal spray Unknown - 0.1% 01/05/2019 Solution Creon 2 with each meal Unknown - [id number] Caps 01/05/2019 Part Humulin N use 20 units twice Unknown - 100Unit/ML daily 01/05/2019 Suspension Doxycycline Hyclate 1 by mouth twice a Unknown - day 01/05/2019 100mg Tablets Novolin R Relion sliding scale Unknown - through yuridia 01/05/2019 100Unit/ML Solution Methocarbamol 1 three times a Unknown - 500mg day as needed 07/10/2017 Tablets Toujeo Solostar 66 units daily Am Shallish, - (if BS over MD Long 12/25/2017 300Unit/ML Solution 200,takes humalog) Pen-Inject Invokana take 1 tab in am Shallish, - 100mg Tablets MD Long 11/26/2017 Novolin N 38 in am, 38 in Unknown - 100Unit/ML p.m. 07/15/2017 Suspension Prednisone 1 tablet po daily M31.30 [facility], - 5mg Tablets Am MD Long 05/28/2016 Victoza inject 1.8 mg sc 3pens Unknown - 18mg/3ML Sopn once per day ( med 07/15/[address]Christine Rodriguez,[facility] marcio hi)(no longer taking) Colcrys take 2 tabs first 20tabs Unknown - 0.6mg Tablets now, and then 1 06/22/2013 tab one hour after the 2, and then one tab daily until symptoms resolve Metformin HCL 1 po qd 60tabs Unknown - 500mg 09/09/2013 Tablets Vital Signs Date Vital Result Comment 02/06/2019 11:16am Height 67 inches 5'7" Heart Rate 74 /min BP Systolic 128 mmHg BP Diastolic 80 mmHg Respiratory Rate 16 /min Body Temperature 98.1 F Pain Level 0 01/28/2019 1:13pm Height 67 inches 5'7" Weight [...] Result H/L Range Note Laboratory test 01/15/2019 [facility] Surgical SEE RESULT [address] [place] [place] [address] [phone] Laboratory test 01/15/2019 [facility] Point of Care 162 mg/dL High 70-100 [address] [place] [address] [phone] Inr/Protime 01/15/2019 [facility] Inr 2.61 High 0.82-1.[address] [place] [address] [phone] Laboratory test 01/15/2019 [facility] Point of Care 139 mg/dL High 70-100 [address] [place] [address] [phone] Laboratory test 01/15/2018 [facility] C Reactive 4.50 mg/L N < 5.00 [address] [place] [address] [phone] Erythrocyte Sed Rate 56 mm/Hr High 0-30 6 Myeloperoxidase AB <0.2 U 7 Proteinase 3 0.3 U 8 CBC Auto Diff 01/15/2018 [facility] White Blood 7.7 10^3/uL N 3.5-10.[address] [place] [address] [phone] Red Blood Count 4.53 10^6/uL N 4.0-5.4 [...] Cells % 0.1 Comp Metabolic Panel 01/15/2018 [facility] Sodium 141 mmol/L N 139-[address] [place] [address] [phone] Potassium 3.9 mmol/L N 3.5-5.0 Chloride 107 [...] >60 Egfr 108.7 >60 9 Protein 01/15/2018 [facility] Total 7.4 g/dL 6.3 - Electrophoresis [address] Protein(Pep) 7.9 [place] [address] [phone] Albumin 2.9 g/dL Abnormal 3.4-4.7 Alpha-1 Globulin 0.2 g/dL 0.1-0.3 Alpha-2 Globulin 1.4 g/dL Abnormal 0.6-1.0 Beta Globulin 1.0 g/dL 0.7-1.2 Gamma Globulin 1.9 g/dL Abnormal 0.6-1.6 Albumin/Globulin Ratio 0.63 Impression See Comment 10 Comp Metabolic Panel 12/10/2017 [facility] Sodium 139 mmol/L N 139-[address] [place] [address] [phone] Potassium 4.5 mmol/L N 3.5-5.0 Chloride 103 [...] Egfr 81.6 >60 11 Laboratory test 12/10/2017 [facility] Creatine 78 U/L N 10- [address] Kinase(CK) [place] [address] [phone] TSH (Thyroid Stim Horm) 2.10 mcIU/mL N 0.34-5.60 C Reactive Protein 11.27 mg/L High < 5.00 12 CBC Auto Diff 12/10/2017 [facility] White Blood 7.5 10^3/uL N 3.5-10.[address] [place] [address] [phone] Red Blood Count 4.62 10^6/uL N 4.0-5.4 [...] Blood Cells % 0.2 Laboratory test 12/10/2017 [facility] Erythrocyte Sed 55 mm/Hr High 0-[address] [place] [address] [phone] Anca AB Ser If 12/10/2017 [facility] C-Anca Negative Negative [address] [place] [address] [phone] P-Anca Positive Abnormal Negative 13 Laboratory test 12/10/2017 [facility] Anti Double <12.3 IU/mL [address] [place] [address] [phone] Urinalysis Profile 12/10/2017 [facility] Urine Color Yellow [address] [place] [address] [phone] Urine Appearance Clear Urine Specific Albright 1.023 N 1.010-1.030 Urine pH 5.0 N [...] Present Abnormal Absent Urine Culture And 12/10/2017 [facility] Urine Culture SEE RESULT [address] [place] [address] [phone] CBC Auto Diff 07/25/2017 [facility] White Blood 8.9 10^3/uL N 3.5-[address] Count 0.8 [place] [address] [phone] Red Blood Count 4.99 10^6/uL N 4.0-5.4 [...] Blood Cells % 0 Laboratory test 07/25/2017 [facility] B-Type 153 pg/mL High [address] [place] [address] Peptide BNP [phone] Basic Metabolic 07/25/2017 [facility] Sodium 139 mmol/L N 133- [address] [place] [address] [phone] Potassium 4.9 mmol/L N 3.5-5.0 Chloride 104 mmol/L N 101-111 Co2 Carbon Dioxide 28 mmol/L N 22-32 Anion Gap 7 mmol/L N 2-11 Glucose 151 mg/dL High 70-100 Blood Urea Nitrogen 23 mg/dL N 6-24 Creatinine 0.69 mg/dL N 0.51-0.95 BUN/Creatinine Ratio 33.3 High 8-20 Calcium 10.1 mg/dL N 8.6-10.3 Egfr Non- 86.2 >60 Egfr 110.9 >60 17 Laboratory test 07/25/2017 [facility] Magnesium 2.0 mg/dL N 1.9-2.[address] [place] [address] [phone] Laboratory test 07/23/2017 [facility] Magnesium <pending> finding [address] [place] [address] [phone] TSH (Thyroid Stim Horm) <pending> Laboratory 07/23/2017 [facility] B-Type <pending> test finding [address] [place] [address] Peptide BNP [phone] Laboratory 07/10/2017 [facility] Surgical SEE RESULT 18 test finding [address] [place] [address] [phone] Laboratory 07/10/2017 [facility] Point of Care 173 mg/dL High 70-1 19 test finding [address] Glucose 00 [place] [address] [phone] Laboratory 10/29/2016 [facility] Apligraf SEE RESULTS 20, test finding [address] BELO <SEE 21 [place] [address] NOTE> [phone] Laboratory 05/07/2016 [facility] C Reactive 4.41 mg/L N < 22 test finding [address] Protein 5.00 [place] [address] [phone] Erythrocyte Sed Rate 39 mm/Hr High 0-30 Anca AB Ser If 05/07/2016 [facility] C-Anca Negative N Negative [address] [place] [address] [phone] P-Anca Positive N Negative 23 Comp Metabolic Panel 05/07/2016 [facility] Sodium 136 mmol/L N 133-[address] [place] [address] [phone] Potassium 4.4 mmol/L N 3.5-5.0 Chloride 102 [...] N >60 24 CBC Auto Diff 05/07/2016 [facility] White Blood 7.8 10^3/uL N 3.5-10.[address] [place] [address] [phone] Red Blood Count 4.59 10^6/uL N 4.0-5.4 [...] Cells % 0.2 N Laboratory test 05/07/2016 [facility] Creatine 97 U/L N 10- 223 finding [address] [facility] Kinase(CK) [place] [address] [phone] Free Cortisol Serum 0.11 g/dL N 25 Vitamin B12 And 05/07/2016 [facility] Vitamin B12 222 pg/mL N 180-914 [address] [place] [address] [phone] Folic Acid (Folate) > 20.00 ng/mL N >3.99 Vitamin D 1,25 05/07/2016 [facility] Vitamin D, 1,25 46 pg/mL N 18-78 27 And Vitamin D,[address] [place] [address] [phone] Urinalysis 05/07/2016 [facility] Urine Color Yellow N Profile [address] [place] [address] [phone] Urine Appearance Cloudy N Urine Specific Albright 1.023 N 1.010-1.030 Urine pH 5.0 N [...] Present Abnormal Absent Urine Culture And 05/07/2016 [facility] Urine Culture SEE RESULT [address] [place] [address] [phone] Order 03/02/2016 [facility] EKG <pending> [address] [place] [address] [phone] Urinalysis 04/02/2013 [facility] Urine Color Yellow [address] [place] [address] [phone] Urine Appearance Clear Urine Specific Albright 1.031 High 1.010-1.030 Urine Esterase Negative Negative Urine Nitrate Negative Negative Urine Urobilinogen Negative E.U./dL Negative Urine Protein Trace mg/dL Abnormal Negative Urine pH 6.0 5-9 Urine Blood Trace Abnormal Negative Urine Ketones 1+ mg/dL Abnormal Negative Urine Bilirubin Negative Negative Urine Glucose Negative mg/dL Negative Urine Microscopic 04/02/2013 [facility] Urine WBC 1+ (<10 None Seen [address] /hpf) [place] [address] [phone] Urine RBC 1+ (<3 /hpf) None Seen Urine Mucus Present /lpf Absent Urine Epithelial Cells 2+ Squamous /hpf None Seen Bacteria Urine 1+ None Seen Laboratory test 04/02/2013 [facility] C Reactive 1.3 mg/dL High Less than finding [address] Protein 0.5 [place] [address] [phone] Erythrocyte Sed Rate 48 mm/Hr High 0-30 Comp Metabolic Panel 04/02/2013 [facility] Sodium 139 mmol/L 133-[address] [place] [address] [phone] Potassium 4.0 mmol/L 3.5-5.0 Chloride 104 mmol/L [...] Egfr 132.1 >60 29 CBC With 04/02/2013 [facility] White Blood 7.2 10^3/uL 4.8- 10.8 Manual Diff [address] [place] [address] [phone] Red Blood Count 4.17 10^6/uL 4.0-5.4 Hemoglobin [...] Morphology Normal Normal Anca Panel For 04/02/2013 [facility] Myeloperoxidase AB <0.2 U [address] [place] [address] [phone] Proteinase 3 AB <0.2 U 31 Neutrophil Cytoplasmic 04/02/2013 [facility] C-Anca Negative Negative AB [address] [place] [address] [phone] P Anca Negative Negative Anca Reviewed By MD Ajit Thorpeovsk <SEE NOTE> 32 CBC With 01/05/2013 [facility] White Blood 9.3 10^3/uL 4.8- 10.8 Manual Diff [address] [place] [address] [phone] Red Blood Count 4.36 10^6/uL 4.0-5.4 Hemoglobin [...] % 0-6 Basophil % 1 % 0-2 Dundee Cells 1+ Laboratory test 01/05/2013 [facility] Erythrocyte Sed 48 mm/Hr High 0-[address] [place] [address] [phone] C Reactive Protein 1.2 mg/dL High Less than 0.5 Neutrophil Cytoplasmic 01/05/2013 [facility] C-Anca Negative Negative AB [address] [place] [address] [phone] P Anca Negative Negative Anca Reviewed By MD Ajit Jacobs <SEE NOTE> 33 Comp Metabolic Panel 01/05/2013 [facility] Sodium 138 mmol/L 133-145 [address] [place] [address] [phone] Potassium 4.2 mmol/L 3.5-5.0 Chloride 101 mmol/L [...] >60 Egfr 110.9 >60 34 Urinalysis 01/05/2013 [facility] Urine Color Yellow [address] [place] [address] [phone] Urine Appearance Clear Urine Specific Albright 1.023 1.010-1.030 Urine Esterase Trace Abnormal Negative Urine Nitrate Negative Negative Urine Urobilinogen Negative E.U./dL Negative Urine Protein Negative mg/dL Negative Urine pH 5.5 5-9 Urine Blood Negative Negative Urine Ketones Negative mg/dL Negative Urine Bilirubin Negative Negative Urine Glucose Trace mg/dL Abnormal Negative Laboratory test 01/05/2013 [facility] Creatine Kinase 65 U/L 0-[address] [place] [address] [phone] TSH (Thyroid Stimulating Horm) 1.30 miu/mL 0.34-5.60 Free T4 1.09 ng/mL 0.61-1.24 Vitamin B12 227 pg/mL 180-914 Urine Microscopic 01/05/2013 [facility] Urine WBC 1+ (<10 None Seen [address] /hpf) [place] [address] [phone] Urine RBC None Seen None Seen Urine Mucus Present /lpf Absent Urine Epithelial Cells 3+ Squamous /hpf None Seen Bacteria Urine 2+ None Seen Laboratory test 06/16/2012 [facility] B Type 153.0 High 0-[address] Natriuretic pg/[place] [address] Peptide [phone] Basic Metabolic 06/16/2012 [facility] Sodium 136 133-[address] mmol/[place] [address] [phone] Potassium 4.3 mmol/L 3.5-5.0 Chloride 99 mmol/L [...] [address]: Jemal Condon MD Acct: [id number] Unit: [id number] AGE: 64 Location: OR Re01/15/19 SEX: F Status: JE ASHBY SPEC: [id number] CHELSEA: 01/15/19- SUBM DR: Jemal Condon MD REQ: [id number] RECD: 01/15/19 STATUS: SOUT _ ORDERED: Decal, LEVEL 3, LEVEL 4 ADDENDUM Addendum: Sections [...] paniagua-pink. The skin margin is inked and textiles sales representative sections CONTINUED ON NEXT PAGE DEPARTMENT OF PATHOLOGY, [address] [place] [address] Ajit Lamb M.D. Director [place] # [id number] RUN DATE: 01/22/19 [facility] LAB LIVE PAGE 2 Patient: AYANNA MOHAMUD [id number] (Continued) GROSS DESCRIPTION (Continued) are submitted in cassettes A and B to include bone following decalcification in cassette A. 2. The specimen is received in formalin labeled, Right Knee Ganglion Cyst, and consists of a 5.0 x 3.4 x 1.0 cm paniagua-pink shaggy focally disrupted rubbery unilocular cyst containing paniagua-pink mucus. The specimen is serially sectioned and textiles sales representative sections are submitted in one cassette. Signed by and Reported on: Briseyda Conley MD 01/16/19 1341 END OF REPORT DEPARTMENT OF PATHOLOGY, [address] [place] [address] Ajit Lamb M.D. Director [facility] # [id number] Formulation Chemist: [id number] Standard intensity warfarin therapeutic range: 2.0-3.0 High intensity warfarin therapeutic range: 2.5-3.5 4 Formulation Chemist: [id number] 5 Acute inflammation: >10.00 6 Please check labs 1 week before follow up 7 REFERENCE VALUE <0.4 (Negative) Test Performed by: [address] [address] 8 REFERENCE VALUE <0.4 (Negative) Test Performed by: [address] [address] 9 Because ethnic data is not always [...] 10 RESULT: Polyclonal hypergammaglobulinemia Test Performed by: [address] [address] 11 Because ethnic data is not always [...] developed and its performance characteristics determined by [facility] in a manner consistent with CLIA requirements. This test has not been cleared or approved by the U.S. Food and Drug Administration. Test Performed by: [facility] [address] [place] [address] 14 REFERENCE VALUE <30.0 (Negative) Test Performed by: [facility] - [address] [address] 15 SEE RESULT BELOW Name: AYANNA MOHAMUD : [address]: Lennox Babcock MD Acct: [id number] Unit: [id number] AGE: 62 Location: LAB Re12/10/17 SEX: F Status: REG REF SPEC: [id number] CHELSEA: 12/10/17-5 [facility] [address]: Lennox Babcock MD REQ: [id number] RECD: 12/10/17 STATUS: COMP _ SOURCE: URINE SPDESC: ORDERED: Urine Culture Procedure Result Reported Site Urine Culture Final 12/11/17- 1338 ML Organism 1 AEROCOCCUS URINAE [place] Count 75-100,000 (Many) CFU/ML Aerococcus isolates are too fastidious for routine susceptibility studies. Aerococcus are usually susceptible to penicillin, amoxicillin, piperacillin, cefipime, rifampin and vancomycin. Moderate to good activity occurs with the quinolones, tetracyclines and erythromycin. (Melecio's Color [place] and Textbook of Diagnostic Microbiology 6th Ed. 2006, p. 705-6.) * ML - Main Lab . END OF REPORT DEPARTMENT OF PATHOLOGY, [address] [place] [address] Ajit Lamb M.D. Director [facility] # [id number] 16 >100 to <200 pg/mL: likely compensated [...] (or dialysis) 18 SEE RESULT BELOW Name: CADE,AYANNA : [address]: Gin Alvarado MD Acct: [id number] Unit: [id number] AGE: 62 Location: [facility] Re07/10/17 SEX: F Status: REG REF SPEC: [id number] CHELSEA: 07/10/17-10[address] [facility] [address]: Gin Alvarado MD REQ: [id number] RECD: 07/10/174 STATUS: SOUT _ ORDERED: LEVEL 1 FINAL DIAGNOSIS Pacemaker generator, removal: Foreign body (pacemaker generator) (Gross diagnosis). PRE-OPERATIVE DIAGNOSIS Pacemaker generator end of life GROSS DESCRIPTION The specimen is received fresh with no source identified and a requisition labeled, Pacemaker Generator, and consists of a 5.0 x 4.5 x 0.7 cm silver metallic medical pathologist. The following inscription is identified: [employer] MRI SureScabdelrahman SN [id number] . Per established hospital medical staff protocol, no tissue is submitted. Gross only. Signed (signature on file) Briseyda Conley MD 11/23 0828 END OF REPORT * ML=Testing performed at Main Lab DEPARTMENT OF PATHOLOGY, [address] [place] [address] Ajit Lamb M.D. 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 Suggest further testing for anti-myeloperoxidase (anti-MPO) antibodies, if clinically indicated. Test Performed by: [place] [address] Mental Health Associate: Jaspreet Sanchez II, M.D., Ph.D. 24 Because [...] analytical performance characteristics have been determined by [facility]. It has not been cleared or approved by FDA. This assay has been validated pursuant to the CLIA regulations and is used for clinical purposes. Test Performed by: [facility] [address] [place] [address] 26 Normal Range 180 to 914 Indeterminate Range 145 to 180 Deficient Range <145 27 Test Performed by: [place] [address] Mental Health Associate: Jaspreet Sanchez II, M.D., Ph.D. 28 SEE RESULT BELOW Name: AYANNA MOHAMUD : [address]: Lennox Babcock MD Acct: [id number] Unit: [id number] AGE: 61 Location: LAB Re05/07/16 SEX: F Status: REG REF SPEC: [id number] CHELSEA: 05/07/16-[address] [facility] [address]: Lennox Babcock MD REQ: [id number] RECD: 05/07/16 STATUS: COMP _ SOURCE: URINE SPDESC: ORDERED: Urine Culture Procedure Result Reported Site Urine Culture Final 05/08/16- 1618 ML No growth of clinically significant organisms * ML - MAIN LAB (PSC1) . END OF REPORT * ML=Testing performed at Main Lab DEPARTMENT OF PATHOLOGY, [address] [place] [address] Ajit Lamb M.D. Director [facility] # [id number] 29 Because ethnic data is not always [...] VALUE -- <0.4 (Negative) Test Performed by: [place] [id number] Mental Health Associate: Brandon Perez III, M.D. 32 Ajit Lamb [...] dialysis) Procedures Date Code Description Status 01/15/2019 31261 Amputation,Toe;Interphalangeal Joint Completed 01/15/2019 06034 Excision Lesion Meniscus/Capsule Knee Completed 01/15/2019 63374 Excision Lesion Meniscus/Capsule Knee Completed 01/06/2019 14479 EKG Tracing & Interpretation Completed 12/18/2018 25002 Icd Eval Sing,Dual,Multi Lead Remote Recpt Transm Tech Rev Completed Tech S 12/18/2018 53421 Icd Eval Sing,Dual,Multi Lead Remote Recpt Transm Tech Rev Completed Tech S 12/18/2018 89879 Pacemaker Check Remote Up To 90Days Single,Dual,Multiple Completed Lead 12/18/2018 72726 Pacemaker Check Remote Up To 90Days Single,Dual,Multiple Completed Lead 07/18/2018 93161 EKG Tracing & Interpretation Completed 07/10/2018 10550 Removal Devitalization Tissue Wound Less Than Equal 20 Completed Square CM 06/19/2018 38431 Application Skin Substitute Graft Trunk,Arms Lets Up To Completed 100 SQ CM 06/12/2018 87584 Pace Maker Eval W/Iterative Adjment Dual Lead Completed 06/12/2018 28132 Pace Maker Eval W/Iterative Adjment Dual Lead Completed 06/05/2018 05264 Removal Devitalization Tissue Wound Less Than Equal 20 Completed Square CM 05/29/2018 55448 Removal Devitalization Tissue Wound Less Than Equal 20 Completed Square CM 05/15/2018 88293 Removal Devitalization Tissue Wound Less Than Equal 20 Completed Square CM 04/29/2018 76653 Removal Devitalization Tissue Wound Less Than Equal 20 Completed Square CM 04/22/2018 47587 Removal Devitalization Tissue Wound Less Than Equal 20 Completed Square CM 04/15/2018 91810 Removal Devitalization Tissue Wound Less Than Equal 20 Completed Square CM 11/26/2017 50197 Pace Maker Eval W/Iterative Adjment Dual Lead Completed 11/26/2017 10022 Pace Maker Eval W/Iterative Adjment Dual Lead Completed 10/21/2017 37815 Pace Maker Eval W/Iterative Adjment Dual Lead Completed 10/21/2017 04995 Pace Maker Eval W/Iterative Adjment Dual Lead Completed 10/11/2017 95807 EKG Tracing & Interpretation Completed 08/29/2017 03872 Pace Maker Eval W/Iterative Adjment Dual Lead Completed 08/29/2017 77949 Pace Maker Eval W/Iterative Adjment Dual Lead Completed 07/23/2017 40685 Pace Maker Eval W/Iterative Adjment Dual Lead Completed 07/23/2017 70613 Pace Maker Eval W/Iterative Adjment Dual Lead Completed 07/16/2017 69466 Pace Maker Eval W/Iterative Adjment Dual Lead Completed 07/16/2017 25088 Pace Maker Eval W/Iterative Adjment Dual Lead Completed 07/10/2017 22001 Removal With Replacement Dual Lead System Pulse Generator Completed 07/08/2017 71170 EKG, Interpretation Only Completed 07/08/2017 53459 Stress Test Supervsn W/Out I/R Completed 07/08/2017 52466 Treadmill Interp/Report Only Completed 07/08/2017 69970 ECHO Transthorasic Realtime 2D W Doppler & Color Flow Hosp Completed 07/03/2017 69938 Pace Maker Eval W/Iterative Adjment Dual Lead Completed 07/03/2017 26651 Pace Maker Eval W/Iterative Adjment Dual Lead Completed 05/10/2017 08321 Pace Maker Eval W/Iterative Adjment Dual Lead Completed 04/09/2017 58618 Pace Maker Eval W/Iterative Adjment Dual Lead Completed 01/15/2017 57785 Interrogation Device Maritza In Person W/DR Completed Analysis,Single,Dual,Mul 11/13/2016 87855 Removal Devitalization Tissue Wound Less Than Equal 20 Completed Square CM 10/30/2016 85920 Application Skin Graft Face,Scalp,Eyelids,Mouth, Neck Up Completed To 100CM 10/23/2016 74887 Burn Treatment W/O Anes Small Completed 10/17/2016 56943 Pace Maker Eval W/Iterative Adjment Dual Lead Completed 10/16/2016 81850 Burn Treatment W/O Anes Small Completed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
--- OUTSIDE RECORDS SUMMARY | 2019-02-20 16:29 | XMS REPORT | Continuity of Care Document ---
:1955 External Reference #:[id number] Author Name VandanaFransisca ortega Care Team Providers Name Role Phone Long Calderón MD Primary Care Physician Unavailable Payers Date Identification Numbers Payment Provider Subscriber Policy Number: [id number] Medicare Ayanna Radha Marquezn PayID: [id number] [address] [place] [address] Effective: 1997 Policy Number: [id number] Medicare Ayanna Radha Marquezn Expires: 2018 PayID: [id number] [address] [place] [address] Policy Number: [id number] [facility] Ayanna J Carolyn Group Number: [id number] [address] PayID: [id number] MYA Hodge [phone] Effective: 2008 Policy Number: [id number] [facility] Bari Marquezcris HOGAN Expires: 2015 Group Number: [id number] [address] PayID: [id number] MYA Hodge [id number] Problems Active Problems Provider Date Granulomatosis with [...] Type 2 diabetes mellitus with diabetic Jemal Condno MD Onset: 12/16/2018 polyneuropathy Acquired deformity of toe Jemal Condon MD Onset: 01/15/2019 Family History Date Family Member(s) Observation Comments General Coronary Artery Disease (CAD) Brother 45 yo [place], Mother hx CAD, DM General No Current Problems Father Chronic Obstructive Pulmonary Disease (COPD) Mother Heart Disease Mother Diabetes Social History Type Date Description Comments Sex Unknown Marital Status Lives With Alone Occupation Disabled Tobacco Use Start: Unknown Never Smoked Cigarettes Smoking Status Reviewed: 01/23/19 Never Smoked Cigarettes ETOH Use Denies alcohol [...] 1 tab every six 40tabs M20.5x1 Jemal Condon MD 01/20/2019 250mg hours Tablets Tramadol [...] 300mg day Tablets Humalog before meals on Pesesky, 100Unit/ML sliding scale has Geno Perrin, Solution needed N.P. Gabapentin 1 cap po bid Pesesky, 300mg Geno Perrin, Capsules N.P. Klor-Con M20 1 tablet po daily 30tabs Unknown 20Meq Tablets ER Warfarin Sodium 1 tablet Long Calderón, 4mg alternate days MD Tablets 1/2 tablet as directed Buspirone HCL 2 tabs po hs 60tabs Unknown 15mg Tablets Atenolol 1 tab by mouth 180tabs Gin Alvarado 25mg twice a day M.D. Tablets History Medications Oxycodone HCL 1 tab every 4 20tabs Jemal Condon, 01/15/2019 - 5mg Tablets hours as needed 01/16/2019 for pain Keflex 1 by mouth 4 times 28caps S92.42 Jemal Condon, 10/27/2018 - 500mg Capsules a day for [...] 10/11/2017 - 5mg Tablets day M.D. 02/25/2018 K12-Eopjpn take one 90units R20.8 Lennox Babcock, 05/28/2016 [...] 10/05/2013 Carvedilol 1 po bid 60tabs Gin Vergarasher, 06/18/2012 - 12.5mg Tablets M.D. 12/05/2012 Prednisone [...] Tablets M.D. 04/01/2011 Premarin 1 every Ricardo [facility], 11/17/2010 - 0.9mg Tablets day(patient no M.D. 04/01/2016 longer on) Atenolol 1 three times a Ricardo Thompson, 11/17/2010 - 25mg Tablets day M.D. 04/02/2011 Prednisone 1 by mouth every 30tabs Ricardo Thompson, 11/17/2010 - 5mg Tablets day M.D. 04/02/2011 Mometasone Furoate nasal spray Unknown - 0.1% 01/05/2019 Solution Creon 2 with each meal Unknown - [id number] Caps 01/05/2019 Part Humulin N use 20 [...] Pen-Inject Invokana take 1 tab in am Lenora Calderónil, - 100mg Tablets 11/26/2017 Novolin N 38 in am, 38 in Unknown - 100Unit/ML p.m. 07/15/2017 Suspension Prednisone 1 tablet po daily M31.30 Long Calderón, - 5mg Tablets Am 05/28/2016 Victoza inject 1.8 mg sc 3pens Unknown - 18mg/3ML Sopn once per day ( med 07/15/[address]Christine Rodriguez,[facility])(no longer taking) Colcrys take 2 tabs first 20tabs Unknown - 0.6mg Tablets now, and then 1 06/22/2013 tab one hour after the 2, and then one tab daily until symptoms resolve Metformin HCL 1 po qd 60tabs Unknown - 500mg 09/09/2013 Tablets Vital Signs Date Vital Result Comment 01/23/2019 10:10am Height 67 inches 5'7" Weight [...] Result H/L Range Note Laboratory test 01/15/2019 [facility] Surgical SEE RESULT [address] [place] [address] [phone] Laboratory test 01/15/2019 [facility] Point of Care 162 mg/dL High 70-[address] [place] [address] [phone] Inr/Protime 01/15/2019 [facility] Inr 2.61 High 0.82-1.[address] [place] [address] [phone] Laboratory test 01/15/2019 [facility] Point of Care 139 mg/dL High 70-[address] [place] [address] [phone] Laboratory test 01/15/2018 [facility] C Reactive 4.50 mg/L N < 5.[address] [place] [address] [phone] Erythrocyte Sed Rate 56 mm/Hr High 0-30 6 Myeloperoxidase AB <0.2 U 7 Proteinase 3 0.3 U 8 CBC Auto Diff 01/15/2018 [facility] White Blood 7.7 10^3/uL N 3.5-10.[address] [place] [address] [phone] Red Blood Count 4.53 10^6/uL N 4.0-5.4 [...] Cells % 0.1 Comp Metabolic Panel 01/15/2018 [facility] Sodium 141 mmol/L N 139-[address] [place] [address] [phone] Potassium 3.9 mmol/L N 3.5-5.0 Chloride 107 [...] >60 Egfr 108.7 >60 9 Protein 01/15/2018 [facility] Total 7.4 g/dL 6.3 - Electrophoresis [address] Protein(Pep) 7.9 [place] [address] [phone] Albumin 2.9 g/dL Abnormal 3.4-4.7 Alpha-1 Globulin 0.2 g/dL 0.1-0.3 Alpha-2 Globulin 1.4 g/dL Abnormal 0.6-1.0 Beta Globulin 1.0 g/dL 0.7-1.2 Gamma Globulin 1.9 g/dL Abnormal 0.6-1.6 Albumin/Globulin Ratio 0.63 Impression See Comment 10 Comp Metabolic Panel 12/10/2017 [facility] Sodium 139 mmol/L N 139-[address] [place] [address] [phone] Potassium 4.5 mmol/L N 3.5-5.0 Chloride 103 [...] Egfr 81.6 >60 11 Laboratory test 12/10/2017 [facility] Creatine 78 U/L N 10- [address] Kinase(CK) [place] [address] [phone] TSH (Thyroid Stim Horm) 2.10 mcIU/mL N 0.34-5.60 C Reactive Protein 11.27 mg/L High < 5.00 12 CBC Auto Diff 12/10/2017 [facility] White Blood 7.5 10^3/uL N 3.5-10.[address] [place] [address] [phone] Red Blood Count 4.62 10^6/uL N 4.0-5.4 [...] Blood Cells % 0.2 Laboratory test 12/10/2017 [facility] Erythrocyte Sed 55 mm/Hr High 0-[address] [place] [address] [phone] Anca AB Ser If 12/10/2017 [facility] C-Anca Negative Negative [address] [place] [address] [phone] P-Anca Positive Abnormal Negative 13 Laboratory test 12/10/2017 [facility] Anti Double <12.3 IU/mL 14 finding [facility] [address] [address] [phone] Urinalysis Profile 12/10/2017 [facility] Urine Color Yellow [address] [place] [address] [phone] Urine Appearance Clear Urine Specific [place] 1.023 N 1.010-1.030 Urine pH 5.0 N [...] Present Abnormal Absent Urine Culture And 12/10/2017 [facility] Urine Culture SEE RESULT [address] BELOW [place], [place] [id number] [phone] CBC Auto Diff 07/25/2017 [facility] White Blood 8.9 10^3/uL N 3.5-[address] Count 0.8 [place] [address] [phone] Red Blood Count 4.99 10^6/uL N 4.0-5.4 [...] Blood Cells % 0 Laboratory test 07/25/2017 [facility] B-Type 153 pg/mL High [address] [place] [address] Peptide BNP [phone] Basic Metabolic 07/25/2017 [facility] Sodium 139 mmol/L N 133- [address] [place] [address] [phone] Potassium 4.9 mmol/L N 3.5-5.0 Chloride 104 mmol/L N 101-111 Co2 Carbon Dioxide 28 mmol/L N 22-32 Anion Gap 7 mmol/L N 2-11 Glucose 151 mg/dL High 70-100 Blood Urea Nitrogen 23 mg/dL N 6-24 Creatinine 0.69 mg/dL N 0.51-0.95 BUN/Creatinine Ratio 33.3 High 8-20 Calcium 10.1 mg/dL N 8.6-10.3 Egfr Non- 86.2 >60 Egfr 110.9 >60 17 Laboratory test 07/25/2017 [facility] Magnesium 2.0 mg/dL N 1.9-2.[address] [place] [address] [phone] Laboratory test 07/23/2017 [facility] Magnesium <pending> finding [address] [place] [address] [phone] TSH (Thyroid Stim Horm) <pending> Laboratory 07/23/2017 [facility] B-Type <pending> test finding [address] [place] [address] Peptide BNP [phone] Laboratory 07/10/2017 [facility] Surgical SEE RESULT [address] [place] [address] [phone] Laboratory 07/10/2017 [facility] Point of Care 173 mg/dL High 70-1 [address] Glucose 00 [place] [address] [phone] Laboratory 10/29/2016 [facility] Apligraf SEE RESULTS 20, test finding [address] BELO <SEE 21 [place] [address] NOTE> [phone] Laboratory 05/07/2016 [facility] C Reactive 4.41 mg/L N < [address] Protein 5.00 [place] [address] [phone] Erythrocyte Sed Rate 39 mm/Hr High 0-30 Anca AB Ser If 05/07/2016 [facility] C-Anca Negative N Negative [address] [place] [address] [phone] P-Anca Positive N Negative 23 Comp Metabolic Panel 05/07/2016 [facility] Sodium 136 mmol/L N 133-[address] [place] [address] [phone] Potassium 4.4 mmol/L N 3.5-5.0 Chloride 102 [...] N >60 24 CBC Auto Diff 05/07/2016 [facility] White Blood 7.8 10^3/uL N 3.5-10.[address] [place] [address] [phone] Red Blood Count 4.59 10^6/uL N 4.0-5.4 [...] Cells % 0.2 N Laboratory test 05/07/2016 [facility] Creatine 97 U/L N 10- [address] Kinase(CK) [place] [address] [phone] Free Cortisol Serum 0.11 g/dL N 25 Vitamin B12 And 05/07/2016 [facility] Vitamin B12 222 pg/mL N 180-914 26 Folate Serum [address] [place] [address] [phone] Folic Acid (Folate) > 20.00 ng/mL N >3.99 Vitamin D 1,25 05/07/2016 [facility] Vitamin D, 1,25 46 pg/mL N 18-78 27 And Vitamin D,[address] [address] [phone] Urinalysis 05/07/2016 [facility] Urine Color Yellow N Profile [address] [place] [address] [phone] Urine Appearance Cloudy N Urine Specific [place] 1.023 N 1.010-1.030 Urine pH 5.0 N [...] Present Abnormal Absent Urine Culture And 05/07/2016 [facility] Urine Culture SEE RESULT [address] [place] [address] [phone] Order 03/02/2016 [facility] EKG <pending> [address] [place] [address] [phone] Urinalysis 04/02/2013 [facility] Urine Color Yellow [address] [place] [address] [phone] Urine Appearance Clear Urine Specific [place] 1.031 High 1.010-1.030 Urine Esterase Negative Negative Urine Nitrate Negative Negative Urine Urobilinogen Negative E.U./dL Negative Urine Protein Trace mg/dL Abnormal Negative Urine pH 6.0 5-9 Urine Blood Trace Abnormal Negative Urine Ketones 1+ mg/dL Abnormal Negative Urine Bilirubin Negative Negative Urine Glucose Negative mg/dL Negative Urine Microscopic 04/02/2013 [facility] Urine WBC 1+ (<10 None Seen [address] /hpf) [place] [address] [phone] Urine RBC 1+ (<3 /hpf) None Seen Urine Mucus Present /lpf Absent Urine Epithelial Cells 2+ Squamous /hpf None Seen Bacteria Urine 1+ None Seen Laboratory test 04/02/2013 [facility] C Reactive 1.3 mg/dL High Less than finding [address] Protein 0.5 [place] [address] [phone] Erythrocyte Sed Rate 48 mm/Hr High 0-30 Comp Metabolic Panel 04/02/2013 [facility] Sodium 139 mmol/L 133-[address] [place] [address] [phone] Potassium 4.0 mmol/L 3.5-5.0 Chloride 104 mmol/L [...] Egfr 132.1 >60 29 CBC With 04/02/2013 [facility] White Blood 7.2 10^3/uL 4.8- 10.8 Manual Diff [address] [place] [address] [phone] Red Blood Count 4.17 10^6/uL 4.0-5.4 Hemoglobin [...] Morphology Normal Normal Anca Panel For 04/02/2013 [facility] Myeloperoxidase AB <0.2 U [address] [place] [address] [phone] Proteinase 3 AB <0.2 U 31 Neutrophil Cytoplasmic 04/02/2013 [facility] C-Anca Negative Negative AB [address] [place] [address] [phone] P Anca Negative Negative Anca Reviewed By MD Ajit Jacobs <SEE NOTE> 32 CBC With 01/05/2013 [facility] White Blood 9.3 10^3/uL 4.8- 10.8 Manual Diff [address] [place] [address] [phone] Red Blood Count 4.36 10^6/uL 4.0-5.4 Hemoglobin [...] % 0-6 Basophil % 1 % 0-2 [place] Cells 1+ Laboratory test 01/05/2013 [facility] Erythrocyte Sed 48 mm/Hr High 0-[address] [place] [address] [phone] C Reactive Protein 1.2 mg/dL High Less than 0.5 Neutrophil Cytoplasmic 01/05/2013 [facility] C-Anca Negative Negative AB [address] [place] [address] [phone] P Anca Negative Negative Anca Reviewed By MD Ajit Jacobs <SEE NOTE> 33 Comp Metabolic Panel 01/05/2013 [facility] Sodium 138 mmol/L 133-145 [address] [place] [address] [phone] Potassium 4.2 mmol/L 3.5-5.0 Chloride 101 mmol/L [...] >60 Egfr 110.9 >60 34 Urinalysis 01/05/2013 [facility] Urine Color Yellow [address] [place] [address] [phone] Urine Appearance Clear Urine Specific [place] 1.023 1.010-1.030 Urine Esterase Trace Abnormal Negative Urine Nitrate Negative Negative Urine Urobilinogen Negative E.U./dL Negative Urine Protein Negative mg/dL Negative Urine pH 5.5 5-9 Urine Blood Negative Negative Urine Ketones Negative mg/dL Negative Urine Bilirubin Negative Negative Urine Glucose Trace mg/dL Abnormal Negative Laboratory test 01/05/2013 [facility] Creatine Kinase 65 U/L 0-[address] [place] [address] [phone] TSH (Thyroid Stimulating Horm) 1.30 miu/mL 0.34-5.60 Free T4 1.09 ng/mL 0.61-1.24 Vitamin B12 227 pg/mL 180-914 Urine Microscopic 01/05/2013 [facility] Urine WBC 1+ (<10 None Seen [address] /hpf) [place], [place] [address] [phone] Urine RBC None Seen None Seen Urine Mucus Present /lpf Absent Urine Epithelial Cells 3+ Squamous /hpf None Seen Bacteria Urine 2+ None Seen Laboratory test 06/16/2012 [facility] B Type 153.0 High 0-[address] Natriuretic pg/[place] [address] Peptide [phone] Basic Metabolic 06/16/2012 [facility] Sodium 136 133-[address] mmol/[place] [address] [phone] Potassium 4.3 mmol/L 3.5-5.0 Chloride 99 mmol/L [...] [address]: Jemal Condon MD Acct: [id number] Unit: [id number] AGE: 64 Location: OR Re01/15/19 SEX: F Status[place] [facility]C: [id number] CHELSEA: 01/15/19- SUBM DR: Jemal Condon MD REQ: [id number] RECD: 01/15/19 STATUS: SOUT _ ORDERED: Decal, [...] paniagua-pink. The skin margin is inked and sales representative education courses sections CONTINUED ON NEXT PAGE DEPARTMENT OF PATHOLOGY, [address] [place] [address] Ajit Lamb M.D. Director [facility] # [id number] RUN DATE: 01/22/19 [facility] LAB LIVE PAGE 2 Patient: AYANNA MOHAMUD [id number] (Continued) GROSS DESCRIPTION (Continued) are submitted in cassettes A and B to include bone following decalcification in cassette A. 2. The specimen is received in formalin labeled, Right Knee Ganglion Cyst, and consists of a 5.0 x 3.4 x 1.0 cm paniagua-pink shaggy focally disrupted rubbery unilocular cyst containing paniagua-pink mucus. The specimen is serially sectioned and sales representative education courses sections are submitted in one cassette. Signed by and Reported on: Briseyda Conley MD 01/16/19 1341 END OF REPORT DEPARTMENT OF PATHOLOGY, [address] [place] [address] Ajit Lamb M.D. Director [facility] # [id number] 2 Dental Sales Representative: [id number] Standard intensity warfarin therapeutic range: 2.0-3.0 High intensity warfarin therapeutic range: 2.5-3.5 4 Dental Sales Representative: [id number] 5 Acute inflammation: >10.00 6 Please check labs 1 week before follow up 7 REFERENCE VALUE <0.4 (Negative) Test Performed by: [address] [address] 8 REFERENCE VALUE <0.4 (Negative) Test Performed by: [place] [address] 9 Because ethnic data is not always [...] 10 RESULT: Polyclonal hypergammaglobulinemia Test Performed by: [address] [address] 11 Because ethnic data is not always [...] developed and its performance characteristics determined by [facility] in a manner consistent with CLIA requirements. This test has not been cleared or approved by the U.S. Food and Drug Administration. Test Performed by: [facility] - [address] [address] 14 REFERENCE VALUE <30.0 (Negative) Test Performed by: [address] [address] 15 SEE RESULT BELOW Name: AYANNA MOHAMUD : [address]: Lennox Babcock MD Acct: [id number] Unit: [id number] AGE: 62 Location: LAB Re12/10/17 SEX: F Status: REG REF SPEC: [id number] CHELSEA: 12/10/17-[address]: Lennox Babcock MD REQ: [id number] RECD: 12/10/17 STATUS: COMP _ SOURCE: URINE SPDESC: ORDERED: Urine Culture Procedure Result Reported Site Urine Culture Final 12/11/17- 1338 ML Organism 1 AEROCOCCUS URINAE [place] Count 75-100,000 (Many) CFU/ML Aerococcus isolates are too fastidious for routine susceptibility studies. Aerococcus are usually susceptible to penicillin, amoxicillin, piperacillin, cefipime, rifampin and vancomycin. Moderate to good activity occurs with the quinolones, tetracyclines and erythromycin. (Melecio's Color [place]on and Textbook of Diagnostic Microbiology 6th Ed. 2006, p. 705-6.) * ML - Main Lab . END OF REPORT DEPARTMENT OF PATHOLOGY, [address] [place] [address] Ajit Lamb M.D. Director [facility] # [id number] 16 >100 to <200 pg/mL: likely compensated [...] [address]: Gin Alvarado MD Acct: [id number] Unit: [id number] AGE: 62 Location: [facility] Re07/10/17 SEX: F Status: REG REF SPEC: [id number] CHELSEA: 07/10/[address] [facility] [address]: Gin Alvarado MD REQ: [id number] RECD: 07/10/17 STATUS: SOUT _ ORDERED: LEVEL 1 FINAL DIAGNOSIS Pacemaker generator, removal: Foreign body (pacemaker generator) (Gross diagnosis). PRE-OPERATIVE DIAGNOSIS Pacemaker generator end of life GROSS DESCRIPTION The specimen is received fresh with no source identified and a requisition labeled, Pacemaker Generator, and consists of a 5.0 x 4.5 x 0.7 cm silver metallic emergency medical technician/driver. The following inscription is identified: [email or web address] Revo MRI SureScan SN [id number] OAE-DDDR . Per established hospital medical staff protocol, no tissue is submitted. Gross only. Signed (signature on file) Briseyda Conley MD 11/23 0828 END OF REPORT * ML=Testing performed at Main Lab DEPARTMENT OF PATHOLOGY, [address] [place] [address] Ajit Lamb M.D. 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 Suggest further testing for anti-myeloperoxidase (anti-MPO) antibodies, if clinically indicated. Test Performed by: [place] [address] Sanding Line Operator: Jaspreet Sanchez II, M.D., Ph.D. 24 Because [...] analytical performance characteristics have been determined by [facility]. It has not been cleared or approved by FDA. This assay has been validated pursuant to the CLIA regulations and is used for clinical purposes. Test Performed by: [facility] [address] [place] [address] 26 Normal Range 180 to 914 Indeterminate Range 145 to 180 Deficient Range <145 27 Test Performed by: [place] [address] Sanding Line Operator: Jaspreet Sanchez II, M.D., Ph.D. 28 SEE RESULT BELOW Name: AYANNA MOHAMUD : [address]: Lennox Babcock MD Acct: [id number] Unit: [id number] AGE: 61 Location: LAB Re05/07/16 SEX: F Status: REG REF SPEC: [id number] CHELSEA: 05/07/16-[address] [facility] [address]: Lennox Babcock MD REQ: [id number] RECD: 05/07/16-4054 STATUS: COMP _ SOURCE: URINE SPDESC: ORDERED: Urine Culture Procedure Result Reported Site Urine Culture Final 05/08/16- 1618 ML No growth of clinically significant organisms * ML - MAIN LAB ([facility]) . END OF REPORT * ML=Testing performed at Main Lab DEPARTMENT OF PATHOLOGY, [address] [place] [address] Ajit Lamb M.D. Director [facility] # [id number] 29 Because ethnic data is not always [...] VALUE -- <0.4 (Negative) Test Performed by: [facility] [address] [address] Sanding Line Operator: Brandon Perez III, M.D. 32 Ajit Lamb [...] dialysis) Procedures Date Code Description Status 01/15/2019 93456 Amputation,Toe;Interphalangeal Joint Completed 01/15/2019 32519 Amputation,Toe;Interphalangeal Joint Completed 01/15/2019 19057 Excision Lesion Meniscus/Capsule Knee Completed 01/15/2019 55843 Excision Lesion Meniscus/Capsule Knee Completed 01/06/2019 58546 EKG Tracing & Interpretation Completed 12/18/2018 41721 Pacemaker Check Remote Up To 90Days Single,Dual,Multiple Completed Lead 12/18/2018 19721 Pacemaker Check Remote Up To 90Days Single,Dual,Multiple Completed Lead 12/18/2018 85931 Icd Eval Sing,Dual,Multi Lead Remote Recpt Transm Tech Rev Completed Tech S 12/18/2018 98567 Icd Eval Sing,Dual,Multi Lead Remote Recpt Transm Tech Rev Completed Tech S 07/18/2018 71806 EKG Tracing & Interpretation Completed 07/10/2018 12642 Removal Devitalization Tissue Wound Less Than Equal 20 Completed Square CM 06/19/2018 15937 Application Skin Substitute Graft Trunk,Arms Lets Up To Completed 100 SQ CM 06/12/2018 26918 Pace Maker Eval W/Iterative Adjment Dual Lead Completed 06/12/2018 47902 Pace Maker Eval W/Iterative Adjment Dual Lead Completed 06/05/2018 09661 Removal Devitalization Tissue Wound Less Than Equal 20 Completed Square CM 05/29/2018 63907 Removal Devitalization Tissue Wound Less Than Equal 20 Completed Square CM 05/15/2018 42601 Removal Devitalization Tissue Wound Less Than Equal 20 Completed Square CM 04/29/2018 58812 Removal Devitalization Tissue Wound Less Than Equal 20 Completed Square CM 04/22/2018 41111 Removal Devitalization Tissue Wound Less Than Equal 20 Completed Square CM 04/15/2018 24076 Removal Devitalization Tissue Wound Less Than Equal 20 Completed Square CM 11/26/2017 13610 Pace Maker Eval W/Iterative Adjment Dual Lead Completed 11/26/2017 38518 Pace Maker Eval W/Iterative Adjment Dual Lead Completed 10/21/2017 20291 Pace Maker Eval W/Iterative Adjment Dual Lead Completed 10/21/2017 17040 Pace Maker Eval W/Iterative Adjment Dual Lead Completed 10/11/2017 97449 EKG Tracing & Interpretation Completed 08/29/2017 58421 Pace Maker Eval W/Iterative Adjment Dual Lead Completed 08/29/2017 58782 Pace Maker Eval W/Iterative Adjment Dual Lead Completed 07/23/2017 38972 Pace Maker Eval W/Iterative Adjment Dual Lead Completed 07/23/2017 78148 Pace Maker Eval W/Iterative Adjment Dual Lead Completed 07/16/2017 60319 Pace Maker Eval W/Iterative Adjment Dual Lead Completed 07/16/2017 92034 Pace Maker Eval W/Iterative Adjment Dual Lead Completed 07/10/2017 40594 Removal With Replacement Dual Lead System Pulse Generator Completed 07/08/2017 98146 EKG, Interpretation Only Completed 07/08/2017 15126 Stress Test Supervsn W/Out I/R Completed 07/08/2017 29181 Treadmill Interp/Report Only Completed 07/08/2017 53895 ECHO Transthorasic Realtime 2D W Doppler & Color Flow Hosp Completed 07/03/2017 25138 Pace Maker Eval W/Iterative Adjment Dual Lead Completed 07/03/2017 91754 Pace Maker Eval W/Iterative Adjment Dual Lead Completed 05/10/2017 67507 Pace Maker Eval W/Iterative Adjment Dual Lead Completed 04/09/2017 25659 Pace Maker Eval W/Iterative Adjment Dual Lead Completed 01/15/2017 13406 Interrogation Device Eval In Person W/ Completed Analysis,Single,Dual,Mul 11/13/2016 76697 Removal Devitalization Tissue Wound Less Than Equal 20 Completed Square CM 10/30/2016 00234 Application Skin Graft Face,Scalp,Eyelids,Mouth, Neck Up Completed To 100CM 10/23/2016 52498 Burn Treatment W/O Anes Small Completed 10/17/2016 83601 Pace Maker Eval W/Iterative Adjment Dual Lead Completed 10/16/2016 25727 Burn Treatment W/O Anes Small Completed 10/09/2016 03676 Burn Treatment W/O Anes Small Completed 09/25/2016 29772 Burn Treatment W/O Anes Small Completed 09/19/2016 64307 Debridement Skin,& sq Tissue Completed 03/09/2016 32438 Interrogation Device Eval In Person W/ Completed Analysis,Single,Dual,Mul 03/02/2016 00055 Interrogation Device Eval In Person W/ Completed Analysis,Single,Dual,Mul 02/13/2016 32801 Pace Maker Eval W/Iterative Adjment Dual Lead Completed 02/13/2016 29944 ECHO Transthoracic, Real-Time 2D With Doppler And Color Completed Flow 07/14/2015 02319 Pace Maker Eval W/Iterative Adjment Dual Lead Completed 12/23/2014 96492 Mobile Cardiovascular Telemetry Over 24 HR Up To 30 Days Completed 12/14/2014 69996 Pace Maker Eval W/Iterative Adjment Dual Lead Completed 06/01/2014 20806 Interrogation Device Eval In Person W/ Completed Analysis,Single,Dual,Mul 03/24/2014 46154 Pace Maker Eval W/Iterative Adjment Dual Lead Completed 08/21/2013 79301 Pace Maker Eval W/Iterative Adjment Dual Lead Completed 06/25/2013 35283 Pace Maker Eval W/Iterative Adjustment Single Lead Completed 06/22/2013 93088 Pace Maker Eval W/Iterative Adjment Dual Lead Completed 05/25/2013 75065 Rad Exam; Foot Comp Completed 05/25/2013 86283 Rad Exam; Ankle Comp Completed 05/04/2013 81525 Pace Maker Eval W/Iterative Adjment Dual Lead Completed 12/17/2012 97626 ECHO Transthoracic, Real-Time 2D With Doppler And Color Completed Flow 10/02/2012 52152 Nerve Conduction 05-06 Studies Completed 10/02/2012 20050 Needle Electromyography Complete, Five Or More Muscles Completed Studied 07/14/2012 61445 Pace Maker Eval W/Iterative Adjment Dual Lead Completed 06/27/2012 46016 EKG Tracing & Interpretation Completed Encounters Type Date Location Provider Dx Diagnosis Office Visit 01/06/2019 [facility] Tawny Mason, I48.2 Chronic atrial 9:00a Of [place] N.P. 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 insulin E11.40 Type 2 diabetes mellitus with diabetic neuropathy, unsp S91.111D Lac w/o fb of right great toe w/o damage to nail, subs M67.461 Ganglion, right knee Office Visit 12/16/2018 9:00a Orthopedic Jemal Condon S91.111D Lac w/o fb of Services Of MD right great C.M.A. toe w/o damage to nail, subs S91.112D Laceration w/o fb of left great toe w/o damage to nail, subs Z79.4 terminal operator (current) use of insulin E11.40 Type 2 diabetes mellitus with diabetic neuropathy, unsp M67.461 Ganglion, right knee Office Visit 12/09/2018 10:00a Orth[facility] Jemal Condon, Z79.4 care home Services Of (current) use of C.M.A. 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 GROWING SUPERVISOR fx right great Hospitalists toe, subs for fx w delay heal Office Visit 12/03/2018 [facility] S92.401G Displaced unsp 12:52p Assoc,sarah Barnett, MUSHROOM GROWING SUPERVISOR fx right great Hospitalists toe, subs for fx w delay heal I48.91 Unspecified atrial fibrillation I50.30 Unspecified diastolic (congestive) heart failure E11.49 Type 2 diabetes w oth diabetic neurological complication 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 Z79.4 care home (current) use of insulin Office Visit 12/03/2018 11:57a Orthopedic Nicolette Domingo, E11.40 Type 2 diabetes Services Of [place] mellitus with C.M.A. diabetic neuropathy, unsp L03.032 Cellulitis of left toe Office Visit 12/02/2018 1:03p Orthopedic Mya Constantino S92.421D Disp fx of Services Of C.MIesha Alejandre dist phalanx of r great toe, 7thD L03.031 Cellulitis of right toe Office Visit 12/02/2018 12:51p [facility] S92.401G Displaced unsp Assoc,sarah Armstrong M.D. 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 Z79.4 care home (current) use of insulin Office Visit 12/01/2018 12:57p Orthopedic Walter S91.111A Lac w/o fb of Services Of Brayden Farooq M.D. right great toe w/o damage to nail, init Office Visit 12/01/2018 12:51p [facility] Maegan S92.401G Displaced [facility] Assoc,sarah Armstrong M.D. 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 Z79.4 terminal operator (current) use of insulin Office Visit 12/01/2018 8:55a [facility] Juan David Landis S92.911B Unsp fracture Serjio Mondragon M.D. of right Diseases toe(s), init encntr for open fracture L03.031 Cellulitis of right toe E11.40 Type 2 diabetes mellitus with diabetic neuropathy, unsp 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 Z79.52 terminal operator (current) use of systemic steroids Office Visit 11/30/2018 12:51p [facility] Maegan S92.401G Displaced [facility] Assocsarah M.D. 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 Z79.4 terminal operator (current) use of insulin Office Visit 11/30/2018 1:34p Orthopedic Mya Constantino S92.421A Disp fx of Services Of Brayden Alejandre distal phalanx of right great toe, init E11.42 Type 2 diabetes mellitus with diabetic polyneuropathy S91.111S Lac w/o fb of right great toe w/o damage to nail, sequela A49.9 Bacterial infection, unspecified Office Visit 11/29/2018 [facility] D. S92.401G Displaced unsp 12:50p Assoc,sarah Nguyen M.D.,FACP fx right great Hospitalists toe, subs for fx w delay heal Z79.4 terminal operator (current) use of insulin E11.49 [...] Center Tapan Jonas E11.622 Type 2 AT [facility] [place]ili Elena diabetes mellitus with other skin ulcer L97.821 Non-prs chr ulcer oth prt l low leg limited to brkdwn skin E11.40 Type 2 diabetes mellitus with diabetic neuropathy, unsp I10 Essential (primary) hypertension Office Visit 07/21/2018 11:00a Orthopedic Jemal Condon, Z79.4 care home Services Of MD (current) use of C.M.A. insulin E11.40 Type 2 diabetes mellitus with diabetic neuropathy, unsp S92.422D Disp fx of dist phalanx of l great toe, 7thD S90.421A Blister (nonthermal), right great toe, initial encounter L53.9 Erythematous condition, unspecified Office Visit 07/18/2018 10:40a [facility] Gin Alvarado, I48.2 Chronic atrial Of [place] AT [facility] Pili fibrillation I44.2 Atrioventricular block, complete Z95.0 Presence of cardiac pacemaker E11.8 Type 2 diabetes mellitus with unspecified complications C88.0 Waldenstrom macroglobulinemia Office Visit 07/03/2018 11:00a Wound Care Tapan Jonas L97.821 Non-prs chr Center AT [facility] Andrea Elena. ulcer oth prt l low [...] Center [place]apan BlancaAlyssa E11.621 Type 2 AT [facility] Pili Elena diabetes mellitus with foot ulcer E11.622 Type 2 diabetes mellitus with other skin ulcer L97.511 Non-prs chronic ulcer oth prt r foot limited to brkdwn skin L97.821 Non-prs chr ulcer oth prt l low leg limited to brkdwn skin Office Visit 02/25/2018 [facility] [place] M31.30 Erickson's 8:40a Services Of Jerry Babcock M.D. granulomatosis without renal involvement Z79.52 terminal operator (current) use of systemic steroids E13.42 Oth diabetes mellitus with diabetic polyneuropathy R53.1 Weakness I83.891 Varicose veins of r low extrem with other complications Office Visit 12/25/2017 [facility] [place] M31.30 Erickson's 4:20p Services Of Jerry Babcock M.D. granulomatosis without renal involvement Z79.52 care home (current) use of systemic steroids E13.42 Oth diabetes mellitus with diabetic polyneuropathy R53.1 Weakness Office Visit 12/02/2017 [facility] [place] M31.30 Erickson's 3:20p Services Of [place] Pili Babcock granulomatosis without renal involvement Z79.52 care home (current) use of systemic steroids E13.42 Oth diabetes mellitus with diabetic polyneuropathy R53.1 Weakness Office Visit 10/11/2017 11:20a [facility] Gin Alvarado I48.2 Chronic atrial Of [place] AT [facility] MMajor fibrillation Z95.0 Presence of cardiac pacemaker R06.02 Shortness of breath I44.2 Atrioventricular block, complete Office Visit 07/23/2017 1:30p [facility] Renata Cano I48.2 Chronic atrial Of [place] fibrillation R06.02 Shortness of breath Z95.0 Presence of cardiac pacemaker Office Visit 07/16/2017 3:00p [facility] JOSÉ Hackett Z95.0 Presence of Of [facility] cardiac pacemaker I48.2 Chronic atrial fibrillation R06.02 Shortness of breath Office Visit 07/08/2017 3:04p [facility] Jesus Landis R07.9 Chest pain, Of Jerry Toscano M.D. unspecified R06.02 Shortness of breath Z95.0 Presence of cardiac pacemaker Office Visit 07/08/2017 [facility] Nikolai Kirk I48.2 Chronic atrial 7:34a Assocsarah II, M.D. fibrillation Hospitalists E11.9 Type 2 diabetes mellitus without complications R07.9 Chest pain, unspecified Z95.0 Presence of cardiac pacemaker Office Visit 06/11/2017 9:00a [facility] Gin Alvarado I48.2 Chronic atrial Of Jerry Alejandre fibrillation Z95.0 Presence of cardiac pacemaker Office Visit 11/27/2016 10:36a Wound Care Tapan Jonas E11.621 Type 2 diabetes Center AT [facility] Pili Elena mellitus with foot ulcer L97.512 Non-prs chronic ulcer oth prt right foot w fat layer exposed Office Visit 11/06/2016 4:18p Wound Care Tapan Jonas E11.621 Type 2 diabetes Center AT [facility] Pili Elena mellitus with foot ulcer T25.321A Burn of third degree of right foot, initial encounter L97.512 Non-prs chronic ulcer oth prt right foot w fat layer exposed X19.xxxA Contact with other heat and hot substances, init encntr Office Visit 10/17/2016 10:00a [facility] JOSÉ Hackett Z95.0 Presence of Of [facility] cardiac pacemaker I48.2 Chronic atrial fibrillation R42 Dizziness and giddiness Office Visit 09/20/2016 1:30p [facility] Charles Palomino T25.021A Burn of Medicine Of Jerry Bosch M.D. unspecified degree of right foot, initial encounter I83.93 Asymptomatic varicose veins of bilateral lower extremities Office Visit 09/12/2016 10:00a Wound Care Catarino Cazares E11.621 Type 2 diabetes Center AT [facility] MD Marlene mellitus with foot ulcer T25.321A Burn of third degree of right foot, initial encounter L97.512 Non-prs chronic ulcer oth prt right foot w fat layer exposed Office Visit 09/06/2016 [facility] E11.42 Type 2 diabetes 2:13p Assoc,sarah [...] Babcock M.D. granulomatosis without renal involvement Z79.52 care home (current) use of systemic steroids R53.1 Weakness R20.8 Other disturbances of skin sensation Office Visit 05/07/2016 [facility] [place] M31.30 Erickson's 11:00a Services Of Jerry Babcock M.D. granulomatosis without renal involvement Z79.52 care home (current) use of systemic steroids R53.1 Weakness R20.8 Other disturbances of skin sensation Z79.4 care home (current) use of insulin E11.42 Type 2 diabetes mellitus with diabetic polyneuropathy Office Visit 04/02/2016 10:30a [facility] JSOÉ Hackett Z95.0 Presence of Of [facility] cardiac pacemaker I48.2 Chronic atrial fibrillation R06.02 Shortness of breath Office Visit 03/02/2016 9:45a [facility] Gin Alvarado I48.2 Chronic atrial Of [place] M.D. fibrillation Z95.0 Presence of cardiac pacemaker I44.2 Atrioventricular block, complete R06.02 Shortness of breath M25.511 Pain in right shoulder 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 Office Visit 07/22/2015 10:30a [facility] Gin Alvarado, Z95.0 Presence of Of [facility] M.D. cardiac pacemaker I48.2 Chronic atrial fibrillation R06.02 Shortness of breath R61 Generalized hyperhidrosis G47.33 Obstructive sleep apnea (adult) (pediatric) Office Visit 01/21/2015 11:00a [facility] iGn Alvarado, 780.4 Dizziness & Of [place] M.D. Giddiness V45.01 Cardiac Pacemaker In Situ Postsurgical 427.31 Atrial Fibrillation Office Visit 06/01/2014 11:15a [facility] Gin Alvarado 427.31 Atrial Cardiology Of M.D. Fibrillation [place] V45.01 Cardiac Pacemaker In Situ Postsurgical 786.59 Pain Chest Other Office Visit 04/14/2014 9:00a [facility] Gin Alvarado 427.31 Atrial Cardiology Of M.D. Fibrillation [place] V45.01 Cardiac Pacemaker In Situ Postsurgical 786.59 Pain Chest Other Office Visit 10/05/2013 8:45a [facility] Gin Alvarado 427.31 Atrial Cardiology Of M.D. Fibrillation [place] V45.01 Cardiac Pacemaker In Situ Postsurgical 446.4 [place] Granulomatosis 786.2 Cough Office Visit 06/22/2013 10:15a Mauro Alvarado, 427.31 Atrial Cardiology Of M.DAlyssa Fibrillation [place] V45.01 Cardiac Pacemaker In Situ Postsurgical 786.09 [...] Ricardo Thompson, 446.4 [place] 11:40a Services Of [facility] M.D. Granulomatosis 338.4 Chronic Pain Syndrome 724.02 Spinal Stenosis, Lumbar Region, W/O Neurogenic Claudication 250.60 Diabetes W/ Neurological Manifestations Type II Controlled Office Visit 04/01/2013 Rheumatology Timaofidaniel 446.4 [place] 2:00p Services Of [facility] JOS Blakely Granulomatosis 338.4 Chronic Pain Syndrome V58.69 Medications Sports Instructor (Current) Use Encounter 354.0 Carpal Tunnel Syndrome 250.60 Diabetes W/ Neurological Manifestations Type II Controlled 453.6 Venous Embolism&Thrombosis,Superficial Vessels [place] Office Visit 01/01/2013 [place] Pr[place], 250.60 Diabetes W/ 11:30a Neurologic MMajor Neurological Services Of [facility] Manifestations Type II Controlled 357.2 Polyneuropathy In Diabetes 724.02 Spinal Stenosis, Lumbar Region, W/O Neurogenic Claudication 728.87 Muscle Weakness Generalized Office Visit 12/05/2012 Rheumatology Ricardo Thompson, 446.4 [place] 2:20p Services Of [facility] AydinDAlyssa Granulomatosis 338.4 Chronic Pain Syndrome Office Visit 12/02/2012 Mauro Alvarado, 786.09 Dyspnea & 10:45a Cardiology Of M.Sabiha Respiratory [place] Abnormalities Other 786.59 Pain Chest Other 787.02 Nausea Alone 401.9 Hypertension Unspec Office Visit 10/02/2012 [place] Prado, 250.60 Diabetes W/ 1:00p Neurologic M.DAlyssa Neurological Services Of [facility] Manifestations Type II Controlled 357.2 Polyneuropathy In Diabetes 724.02 Spinal Stenosis, Lumbar Region, W/O Neurogenic Claudication 446.4 [place] Granulomatosis Office Visit 08/20/2012 9:00a [place] Lizette Maldonadoan Jorgekiki, 356.9 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 Fibrillation [facility] 786.09 Dyspnea & Respiratory Abnormalities Other Office Visit 06/27/2012 12:00p [facility] Gin Alvarado, 427.31 Atrial Cardiology Of M.D. Fibrillation [facility] AT [facility] 786.05 Shortness Of Breath Office 08/10/2011 Orthopedic [place]illa 354.0 Carpal Tunnel Visit 8:45a Services Of Pili Rolon Syndrome C.M.A. Office 04/16/2011 [facility] [place] 354.0 Carpal Tunnel Visit 10:30a Services Of Pili Rolon Syndrome C.M.A. 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 Fibrillation Hospitalists Office Visit 06/05/2009 [facility] Chelo 530.81 Esophageal Reflux 2:15a Assocsarah M.D. Hospitalists 786.50 Pain Chest Unspec 790.99 Blood Examination Other Nonspecific Findings 427.31 Atrial Fibrillation Office Visit 06/04/2009 12:45a [facility] Lewis Landis 786.50 Pain Chest Assoc,sarah Nguyen M.D. 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 at [facility]01/23/2019 - Jemal Condon, MDM67.461 Ganglion, right kneeFollow up:Follow Up: [id number] Other deformities of toe(s) ( acquired), right foot
--- NOTE | 2019-02-20 17:41 | ED ---
Lower Extremity - HPI Summary HPI Summary: 64-year-old female presents with possible infection of her right foot. She states she had an amputation about a month ago. She states that she is following with Dr. Lyons who saw here a couple days ago and debrided the area. She states she is having some pus like drainage from the wound. No spreading redness. No fevers or chills. She has been soaking the area but when she soaks it makes the symptoms worse. She is currently on Keflex and just started yesterday. - History of Current Complaint Chief Complaint: EDExtremityLower Stated Complaint: POSS TOE INFECTION RT FOOT PER PT Time Seen by Provider: 02/20/19 16:54 Pain Intensity: 0 - Allergies/Home Medications Allergies/Adverse Reactions: Allergies Allergy/AdvReac Type Severity Reaction Status Date / Time albuterol Allergy Difficulty Verified 02/20/19 15:49 Swallowing latex Allergy Unknown Verified 02/20/19 15:49 Reaction Details pregabalin [From Lyrica] Allergy Altered Verified 02/20/19 15:49 Mental Status codeine AdvReac Intermediate GI Upset Verified 02/20/19 15:49 hydrocodone AdvReac Intermediate GI Upset Verified 02/20/19 15:49 metformin AdvReac Intermediate Nausea Verified 02/20/19 15:49 Sulfa (Sulfonamide AdvReac Intermediate Nausea Verified 02/20/19 15:49 Antibiotics) sulfamethoxazole AdvReac Intermediate Nausea Verified 02/20/19 15:49 [From Bactrim] trimethoprim [From Bactrim] AdvReac Intermediate Nausea Verified 02/20/19 15:49 PMH/Surg Hx/FS Hx/Imm Hx Endocrine/Hematology History: Reports: Hx Anticoagulant Therapy, Hx Diabetes - Tr WITH INSULIN Denies: Hx Thyroid Disease Comment Only: Hx Anemia - PT DOES TAKE COUMADIN DAILY, INSTRUCTED TO TAKE PRE -OP Cardiovascular History: Reports: Hx Angina - PACEMAKER, A-FIB, Hx Congestive Heart Failure - Hx OF, Hx Embolism, Hx Hypercholesterolemia, Hx Hypertension - ON DAILY MEDS, Hx Pacemaker/ICD - put in 2010, new battery 2016, Other Cardiovascular Problems/Disorders - FOLLOWED BY DR PARKER Denies: Hx Coronary Artery Disease, Hx Myocardial Infarction, Hx Valvular Heart Disease Respiratory History: Reports: Hx Pulmonary Embolism - EARLY , Hx Sleep Apnea - DOES NOT USE CPAP, Other Respiratory Problems/Disorders - wegeners granulomatosis Denies: Hx Asthma, Hx Chronic Obstructive Pulmonary Disease (COPD) GI History: Reports: Hx Gall Bladder Disease, Hx Gastroesophageal Reflux Disease - ON DAILY MEDS Musculoskeletal History: Reports: Hx Arthritis - FEET, HANDS, Hx Back Problems, Other Musculoskeletal History - SPINAL STENOSIS Sensory History: Reports: Hx Contacts or Glasses Denies: Hx Cataracts, Hx Hearing Aid, Hx Hearing Problem, Other Sensory Impairments Opthamlomology History: Reports: Hx Contacts or Glasses Denies: Hx Cataracts, Other Sensory Impairments Neurological History: Reports: Hx Nerve Disease, Other Neuro Impairments/ Disorders - neuropathy - hands and feet, spinal stenosis Psychiatric History: Reports: Hx Anxiety - ON DAILY MEDS, Hx Depression - Cancer History Cancer Type, 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 - Surgical History Surgery Procedure, Year, and Place: CHOLECYSTECTOMY, - 1972. SCAR TISSUE REMOVAL - gallbladder - 3 times, most recent ~1998. tubal ligation - 1978. hysterectomy -1994. pacemaker - 2010,. new battery 2016, [facility]. ankle surgery rt foot - [facility] - ~1974. toe amputated - ~2013, [facility] Hx Anesthesia Reactions: No - Immunization History Date of Tetanus Vaccine: 2018 Date of Influenza Vaccine: 07/04/2017 Infectious Disease History: No Infectious Disease History: Reports: Hx Shingles Denies: Hx Clostridium Difficile, Hx Hepatitis, Hx Human Immunodeficiency Virus (HIV), Hx of Known/Suspected MRSA, Hx Tuberculosis, Hx Known/Suspected VRE , Hx Known/Suspected VRSA, History Other Infectious Disease, Traveled Outside the [place] in Last 30 Days - Family History Known Family History: Positive: Diabetes, Non-Contributory - Social History Alcohol Use: None Hx Substance Use: No Substance Use Type: Reports: None Hx Tobacco Use: No Smoking Status (MU): Never Smoked Tobacco Have You Smoked in the Last Year: No Review of Systems Negative: Fever Negative: Chest Pain Negative: Shortness Of Breath Positive: Rash All Other Systems Reviewed And Are Negative: Yes Physical Exam Triage Information Reviewed: Yes Vital Signs On Initial Exam: Initial Vitals Temp Pulse Resp BP Pulse Ox 97.7 F 89 16 104/77 96 02/20/19 15:46 02/20/19 15:46 02/20/19 15:46 02/20/19 15:46 02/20/19 15:46 Vital Signs Reviewed: Yes Appearance: Positive: Well-Appearing Skin: Positive: Warm, Dry, Other - healing wound on right toe that minimial erythema and serous drainage Head/Face: Positive: Normal Head/Face Inspection Eyes: Positive: Normal, Conjunctiva Clear ENT: Positive: Pharynx normal Respiratory/Lung Sounds: Positive: Clear to Auscultation, Breath Sounds Present Cardiovascular: Positive: Normal, RRR Abdomen Description: Positive: Nontender, Soft Bowel Sounds: Positive: Present Musculoskeletal: Positive: Normal Neurological: Positive: Normal Psychiatric: Positive: Normal Diagnostics - Vital Signs Vital Signs Temp Pulse Resp BP Pulse Ox 02/20/19 17:00 61 97 02/20/19 16:51 83 96 02/20/19 16:50 87 125/80 95 02/20/19 15:46 97.7 F 89 16 104/77 96 - Laboratory Result Diagrams: 02/20/19 17:28 02/20/19 17:28 Lab Statement: Any lab studies that have been ordered have been reviewed, and results considered in the medical decision making process. - Radiology foot Radiology Interpretation Completed By: Radiologist Summary of Radiographic Findings: IMPRESSION: SOFT TISSUE SWELLING, NO SPECIFIC EVIDENCE FOR OSTEOMYELITIS. IF THERE IS A. HIGH CLINICAL INDEX OF SUSPICION FOR OSTEOMYELITIS CONSIDER AN MRI STUDY WITHOUT CONTRAST. OR A THREE-PHASE BONE SCAN. Lower Extremity Course/Dx - Course Course Of Treatment: 64-year-old female presents with possible infection of her right foot. She states she had an amputation about a month ago. She states that she is following with Dr. Lyons who saw here a couple days ago and debrided the area. She states she is having some pus like drainage from the wound. No spreading redness. No fevers or chills. She has been soaking the area but when she soaks it makes the symptoms worse. She is currently on Keflex and just started yesterday. On exam has healing wounds with some serous fluid present. Minimal erythema around. does not appear infected or cellulitis. Vital stable. X-ray shows soft tissue swelling. wbc normal. crp slightly elevated. Discussed appears just to be healing wound. Told to do warm soaks and continue Keflex. Will not not add anything at this time. patient understand and agrees with plan. - Diagnoses Differential Diagnosis/HQI/PQRI: Positive: Cellulitis, Osteomyelitis, Other - abscess Provider Diagnoses: Wound of right foot Discharge - Sign-Out/Discharge Documenting (check all that apply): Patient Departure Patient Received Moderate/Deep Sedation with Procedure: No - Discharge Plan Condition: Good Disposition: HOME Patient Education Materials: Acute Wounds (ED) Referrals: Long Calderón MD [Primary Care Provider] - Additional Instructions: continue antibiotics as prescribed Continue soaks of area Follow up with ortho Return to ED if develop spreading redness, fever or any new or worsening symptoms - Billing Disposition and Condition Condition: GOOD Disposition: Home
[2019-02-20 17:51] LABS: ABS Basophils 0.1 10^3/ul (0-0.2); ABS Eosinophils 0.1 10^3/ul (0-0.6); ABS Lymphocytes 3.3 10^3/ul (1.0-4.8); ABS Monocytes 0.7 10^3/ul (0-0.8); ABS Neutrophils 6.1 10^3/ul (1.5-7.7); Eosinophil % 0.5 %; Hematocrit 44 % (35-47); Hemoglobin 14.9 g/dL (12.0-16.0); Lymphocyte % 32.2 %; Mean Corpuscular HGB Conc 34 g/dL (31-36); Mean Corpuscular Hemoglobin 28 pg (27-31); Mean Corpuscular Volume 85 fL (80-97); Mean Platelet Volume 7.8 fL (7.4-10.4); Nucleated Red Blood Cells % 0.1; Platelet Count 344 10^3/uL (150-450); Red Blood Count 5.25 10^6 /uL (3.70-4.87); Red Cell Distribution Width 15 % (10-15); White Blood Count 10.4 10^3/uL (3.5-10.8)
[2019-02-20 18:09] LABS: Albumin 4.3 g/dL (3.2-5.2); Albumin/Globulin Ratio 0.9 (1-3); BUN/Creatinine Ratio 26.4 (8-20); C Reactive Protein 9.3 mg/L (<8.01); Calcium 10.6 mg/dL (8.6-10.3); EGFR African American 75.3 (>60); EGFR Non-African American 62.2 (>60); Globulin 4.6 g/dL (2-4); Potassium 4.6 mmol/L (3.5-5.0); Total Bilirubin 0.6 mg/dL (0.2-1.0); Total Protein 8.9 g/dL (6.4-8.9)
[2019-02-20 18:29] VITALS: BP 125/84
== END 2019-02-20 18:29 | disposition home or self-care (01) ==
LOC: ED 15:42
DX: S91.301A Unspecified open wound, right foot, initial encounter (principal); E11.9 Type 2 diabetes mellitus without complications; Z88.5 Allergy status to narcotic agent; Z88.2 Allergy status to sulfonamides; Z88.1 Allergy status to other antibiotic agents; Z91.040 Latex allergy status; Z79.4 Long term (current) use of insulin; Z79.01 Long term (current) use of anticoagulants
CPT/HCPCS: 36415; 80053; 83605; 85025; 86140; 87070; 87205; 87640; 87641; 99282

== ENCOUNTER 2019-05-09 17:06 | Inpatient (IN) | payer MEDICARE, OTHER ==
--- OUTSIDE RECORDS SUMMARY | 2019-05-09 17:18 | XMS REPORT | Continuity of Care Document ---
:1955 External Reference #:[id number] Author Name Gin Alvarado M.D. (transmitted by agent of provider Alena Dickinson) Address [address] [place] [address] Care Team Providers Name Role Phone Long Calderón MD - Family Medicine Care Team Information Scientific Illustrator Problems Active Problems Provider Date Granulomatosis with [...] of toe Jemal Condon MD Onset: 01/15/2019 Social History Type Date Description Comments Sex Unknown Tobacco Use Start: Unknown Never Smoked Cigarettes Smoking Status Reviewed: 04/24/19 Never Smoked Cigarettes ETOH Use Denies alcohol [...] Medications Active Medications SIG Qnty Indications Ordering Date Provider Medihomenominee use daily on 1.5ounces Jemal Condon, 02/27/2019 Wound/Burn wound Dressing Gel Prednisone take 5 mg daily 1000tabs M31.30 Lennox Babcock, 02/25/2018 1mg or as directed M.D. Tablets Compression please use daily 2units Lennox Babcock, 02/25/2018 Stockings as needed for M.D. Misc leg/foot swelling Lisinopril 1 tab by mouth 30tabs Gin Alvarado, 04/13/2014 5mg daily M.D. Tablets Furosemide 1 daily ( taken Ricardo Thompson, 11/17/2010 40 along with M.D. Tablets Potassium) Omeprazole 1 by mouth every Unknown 20mg day Capsules DR Randee Hernadez 75/25 inject 18 units Unknown Kwikpen in the morning and 12 units at (75-25)100Unit/ML night with meals Supn or as directed; mdd 50 Flonase Allergy 2 puffs each nare Unknown Relief every in the 50mcg/Act morning Suspension Victoza inject 1.2 mg Unknown 18mg/3ML daily [...] Atenolol 1 tab by mouth 180tabs Gin Alvardao, 25mg twice a day M.D. Tablets History Medications Keflex 1 tab by mouth kenny Condon MD 04/03/2019 - 500mg Capsules four times a 04/23/2019 day Keflex 1 tab by mouth 28shola Condon MD 02/19/2019 - 500mg Capsules four times a 03/03/2019 day Cephalexin 1 tab every six 40tabs M20.5x1 Jemal Condon MD 01/20/2019 - 250mg hours 01/30/2019 Tablets Tramadol HCL 1 tablets every 15tabs Omar F 01/16/2019 - 50mg 6 hours as MD Donovan 03/03/2019 Tablets needed Oxycodone HCL 1 tab every 4 20tabs Jemal Condon MD 01/15/2019 - 5mg hours as needed 01/16/2019 Tablets for pain Doxycycline Hyclate 1 tab every 12 14tabs Jemal Condon MD 01/15/2019 - hours for 7 02/17/2019 100mg Tablets days Aspirin Ec 1 by mouth 30tabs Jemal Condon MD 01/15/2019 - 325mg every day until 03/03/[address] post op visit Keflex 1 by mouth 4 28caps S92.422D Jemal Condon MD 10/27/2018 - 500mg Capsules times a day for 11/03/2018 7 days Immunizations Description No Information Available Vital Signs Date Vital Result Comment 04/24/2019 1:30pm Height 67 inches 5'7" Weight 226.00 lb Heart Rate 60 /min irregular BP Systolic Sitting 100 mmHg Lue reg cuff BP Diastolic Sitting 62 mmHg Lue reg cuff BP Systolic Standing 92 mmHg Lue reg cuff BP Diastolic Standing 58 mmHg Lue reg cuff Respiratory Rate 14 /min BMI (Body Mass Index) 35.4 kg/m2 Ejection Fraction 55-60% 04/24/2019 1:17pm Height 67 inches 5'7" Weight 226.00 lb Heart Rate 60 /min irregular pulse BP Systolic Sitting 100 mmHg reg cuff Rue BP Diastolic Sitting 62 mmHg reg cuff Rue BP Systolic Standing 92 mmHg reg cuff Rue BP Diastolic Standing 58 mmHg reg cuff Rue BMI (Body Mass Index) 35.4 kg/m2 Ejection Fraction 55-60% ECHO 07/08/2017 Results Test Date Facility Test Result H/L Range Note Laboratory test 01/15/2019 [facility] Surgical SEE RESULT [address] [place] [address] [phone] Laboratory test 01/15/2019 [facility] Point of Care 162 mg/dL High 70-100 [address] [place] [address] [phone] Inr/Protime 01/15/2019 [facility] Inr 2.61 High 0.82-1.[address] [place] [address] [phone] Laboratory test 01/15/2019 [facility] Care 139 mg/dL High 70-100 [address] [place] [address] [phone] 1 SEE RESULT BELOW Name: AYANNA MOHAMUD : [address]: Jemal Condon MD Acct: [id number] Unit: [id number] AGE: 64 Location: OR Re01/15/19 SEX: F Status: [facility] SPEC: [id number] CHELSEA: 01/15/19- SUBM DR: Jemal Condon MD REQ: [id number] RECD: 01/15/19 STATUS: SOUT _ ORDERED: Artemio, [...] paniagua-pink. The skin margin is inked and order entry representative sections CONTINUED ON NEXT PAGE DEPARTMENT OF PATHOLOGY, [address] [place] [address] Ajit Lamb M.D. Director [facility] # [id number] RUN DATE: 01/22/19 [facility] LAB LIVE PAGE 2 Patient: AYANNA MOHAMUD [id number] (Continued) GROSS DESCRIPTION (Continued) are submitted in cassettes A and B to include bone following decalcification in cassette A. 2. The specimen is received in formalin labeled, Right Knee Ganglion Cyst, and consists of a 5.0 x 3.4 x 1.0 cm paniagua-pink shaggy focally disrupted rubbery unilocular cyst containing paniagua-pink mucus. The specimen is serially sectioned and order entry representative sections are submitted in one cassette. Signed by and Reported on: Briseyda Conley MD 01/16/19 1341 END OF REPORT DEPARTMENT OF PATHOLOGY, [address] [place] [address] Ajit Lamb M.D. Director [facility] # [id number] 2 Marriage Counselor Minister: [id number] 3 Standard intensity warfarin therapeutic range: 2.0-3.0 High intensity warfarin therapeutic range: 2.5-3.5 4 Marriage Counselor Minister: [id number] Procedures Date Code Description Status 03/09/201906667 Aspiration &/Or Inj Of Ganglion Cyst(S) Any Location Completed 02/27/2019 Aspiration &/Or Inj Of Ganglion Cyst(S) Any Location Completed 01/15/2019 10446 Amputation,Toe;Interphalangeal Joint Completed 01/15/2019 56847 Excision Lesion Meniscus/Capsule Knee Completed 01/15/2019 07902 Excision Lesion Meniscus/Capsule Knee Completed 01/06/2019 11743 EKG Tracing & Interpretation Completed 12/18/2018 35925 Icd Eval Sing,Dual,Multi Lead Remote Recpt Transm Tech Rev Completed Tech S 12/18/2018 92565 Icd Eval Sing,Dual,Multi Lead Remote Recpt Transm Tech Rev Completed [employer] S 12/18/2018 07466 Pacemaker Check Remote Up To 90Days Single,Dual,Multiple Completed Lead 12/18/2018 17469 Pacemaker Check Remote Up To 90Days Single,Dual,Multiple Completed Lead Medical Devices Description No Information Available Encounters Type Date Location Provider Dx Diagnosis Office Visit 04/17/2019 Orthopedic Jemal Condon, Z47.81 Encounter for 2:15p Services Of Brayden REDMOND orthopedic aftercare following surgical amp Z89.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 I48.2 Chronic atrial Of Senior Bi Architect Marlon N.P. fibrillation I49.5 Sick sinus syndrome Z95.0 Presence of cardiac pacemaker Office Visit 12/30/2018 10:15a Orthopedic Jemal Condon, Z79.4 retirement Services Of (current) use of C.M.A. insulin [...] toe w/o damage to nail, subs Z79.4 manager long term care (current) use of insulin E11.40 Type 2 diabetes mellitus with diabetic neuropathy, unsp M67.461 Ganglion, right knee Office Visit 12/09/2018 10:00a Orthopedic Jemal Condon Z79.4 retirement Services Of (current) use of C.M.A. insulin E11.42 Type 2 diabetes mellitus with diabetic polyneuropathy S91.111S [place] w/o fb of right great toe w/o damage to nail, sequela S92.422D Disp fx of dist phalanx of l great toe, 7thD Office Visit 12/04/2018 [facility] S92.401G Displaced unsp 12:52p Assoc,pc Shortle, WIRE WEAVER HELPER fx right great Hospitalists toe, subs for fx w delay heal Office Visit 12/03/2018 [facility] S92.401G Displaced unsp 12:52p Assoc,pc [place], WIRE WEAVER HELPER fx right great Hospitalists toe, subs for fx w delay heal I48.91 Unspecified atrial fibrillation I50.30 Unspecified diastolic (congestive) heart failure E11.49 Type 2 diabetes w oth diabetic neurological complication 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 diabetic neuropathy, unsp L03.032 Cellulitis of left toe Office Visit 12/02/2018 1:03p Orthopedic Mya Dougie, S92.421D Disp fx of Services Of Brayden Aljeandre dist phalanx of r great toe, 7thD L03.031 Cellulitis of right toe Office Visit 12/02/2018 12:51p [facility] S92.401G Displaced unsp Assoc,sarah Armstrong M.D. 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 Z79.4 manager long term care (current) use of insulin Office Visit 12/01/2018 12:57p Orthopedic Walter S91.111A [place] w/o fb of Services Of Brayden Farooq M.D. right great toe w/o damage to nail, init Office Visit 12/01/2018 12:51p [facility] S92.401G Displaced uns Assoc,sarah Armstrong M.D. 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 Z79.4 manager long term care (current) use of insulin Office Visit 12/01/2018 8:55a [facility] Juan David Landis S92.911B Unsp fracture Serjio Mondragon M.D. of right Diseases toe(s), init encntr for open fracture L03.031 Cellulitis of right toe E11.40 Type 2 diabetes mellitus with diabetic neuropathy, unsp 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 Z79.52 manager long term care (current) use of systemic steroids Office Visit 11/30/2018 12:51p [facility] S92.401G Displaced unsp Asssarah vidal M.D. 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 Z79.4 manager long term care (current) use of insulin Office Visit 11/30/2018 1:34p Orthopedic Mya Constantino, S92.421A Disp fx of Services Of Brayden Alejandre distal phalanx of right great toe, init E11.42 Type 2 diabetes mellitus with diabetic polyneuropathy S91.111S Lac w/o fb of right great toe w/o damage to nail, sequela A49.9 Bacterial infection, unspecified [facility] Displaced unsp 12:50p Assoc,sarah Nguyen M.D.,FACP fx right great Hospitalists toe, subs for fx w delay heal Z79.4 retirement (current) use of insulin E11.49 Type 2 diabetes w oth diabetic neurological complication 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 Office Visit 11/04/2018 1:15p Orthopedic Jemal Condon S92.422D Disp fx of Services Of MD jessica lala C.M.AAlyssa of l great toe, 7thD Office Visit 10/27/2018 11:30a Orthopedic Jemal Condon S92.422D Disp fx of Services Of MD jessica lala C.M.AAlyssa of l great toe, 7thD Assessments Date Code Description Provider 04/24/2019 I48.2 Chronic atrial fibrillation Gin Alvarado M.D. 04/24/2019 Z95.0 Presence of cardiac pacemaker Gin Alvarado M.D. 04/24/2019 R06.02 Shortness of breath Gin Alvarado M.D. 04/17/2019 Z47.81 Encounter for orthopedic aftercare Jemal Condon MD following surgical amputation 04/17/2019 Z89.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 great toe Jemal Condon MD 04/17/2019 M67.461 Ganglion, right knee Jemal Condon MD 04/03/2019 Z47.81 Encounter for orthopedic aftercare Jemal Condon MD following surgical amputation 04/03/2019 Z89.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 great toe Jemal Condon MD 04/03/2019 M67.461 Ganglion, right knee Jemal Condon MD 03/24/2019 Z89.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 great toe Lupe Krissy, RPA-C 03/24/2019 Z47.81 Encounter for orthopedic aftercare [place], RPA-C following surgical amputa 03/24/2019 M67.461 Ganglion, right knee [place], RPA-C 03/09/2019 Z47.81 Encounter for orthopedic aftercare Jemal Condon MD following surgical amp 03/09/2019 Z89.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 great toe Jemal Condon MD 03/09/2019 M6Dana.461 Ganglion, right knee Jemal Condon MD 03/04/2019 Z47.81 Encounter for orthopedic aftercare Jemal Condon MD following surgical amp 03/04/2019 Z89.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 great toe Jemal Condon MD 03/04/2019 M67.461 Ganglion, right knee Jemal Condon MD 02/27/2019 M67.461 Ganglion, right knee Lupe [place], RPA-C 02/27/2019 Z89.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 great toe Lpue Krissy, RPA-C 02/27/2019 Z47.81 Encounter for orthopedic aftercare [place], RPA-C following surgical amputa 02/18/2019 M67.461 Ganglion, right knee Jemal Condon MD 02/18/2019 Z89.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 great toe Jemal Condon MD 02/18/2019 Z47.81 Encounter for orthopedic aftercare Jemal Condon MD following surgical amputa 02/13/2019 M67.461 Ganglion, right knee Lupe [place]issy, RPA-C 02/13/2019 Z89.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 great toe Lupe Krissy, RPA-C 02/13/2019 Z47.81 Encounter for orthopedic aftercare Lupe [place]issy, RPA-C following surgical amputa 02/06/2019 Rachna.461 Ganglion, right knee Jemal Condon MD 02/06/2019 Z89.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 great toe Jemal Condon MD 02/06/2019 Z47.81 Encounter for orthopedic aftercare Jemal Condon MD following surgical amp 01/28/2019 Rachna.461 Ganglion, right knee Jemal Condon MD 01/28/2019 Z89.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 great toe Jemal Condon MD 01/28/2019 Z47.81 Encounter for orthopedic aftercare Jemal Condon MD following surgical amp 01/23/2019 M67.461 Gely, right knee Jemal Condon MD 01/23/2019 M20.5x1 Other deformities of toe(s) Jemal Condon MD (acquired), right foot 01/20/2019 M67.461 Ganglion, right knee Jemal Condon MD 01/20/2019 M20.5x1 Other deformities of toe(s) Jemal Condon MD (acquired), right foot 01/15/2019 M20.5x1 Other deformities of toe(s) SAVAGE Izquierdo (acquired), right foot 01/15/2019 M20.5x1 Other deformities of toe(s) Jemal Condon MD (acquired), right foot 01/15/2019 M67.461 Ganglion, right knee Jemal Condon MD 01/15/2019 M86.671 Other chronic osteomyelitis, right Jemal Condon MD ankle and foot 01/15/2019 M67.461 Ganglion, right knee SAVAGE Izquierdo 01/06/2019 I48.2 Chronic atrial fibrillation Gin Alvarado M.D. 01/06/2019 I48.2 Chronic atrial fibrillation Tawny Mason N.P. 01/06/2019 I49.5 Sick sinus syndrome Tawny Mason N.P. 01/06/2019 Z95.0 Presence of cardiac pacemaker Tawny Mason, N.P. 01/05/2019 E11.40 Type 2 diabetes mellitus with Jemal Condon MD diabetic neuropathy, unspecifi 01/05/2019 Z79.4 retirement (current) use of insulin Jemal Condon MD 01/05/2019 S91.111D Laceration without foreign body of Jemal Condon MD right great toe without d 01/05/2019 M67.461 Gely, right knee Jemal Condon MD 12/30/2018 Z79.4 manager long term care (current) use of insulin Jemal Condon MD 12/30/2018 E11.40 Type 2 diabetes mellitus with Jemal Condon MD diabetic neuropathy, unspecifi 12/30/2018 S91.111D Laceration without foreign body of Jemal Condon MD right great toe without d 12/30/2018 M67.461 Ganglion, right knee Jemal Condon MD 12/18/2018 I48.2 Chronic atrial fibrillation Gin Alvarado M.D. 12/18/2018 I48.2 Chronic atrial fibrillation Remote Device Checks 12/18/2018 I49.5 Sick sinus syndrome Gin Alvarado M.D. 12/18/2018 I49.5 Sick sinus syndrome Remote Device Checks 12/18/2018 Z95.0 Presence of cardiac pacemaker Gin Alvarado M.D. 12/18/2018 Z95.0 Presence of cardiac pacemaker Remote Device Checks 12/16/2018 S91.111D Lac w/o fb of right great toe w/o Jemal Condon MD damage to nail, subs 12/16/2018 S91.112D Laceration w/o fb of left great toe Jemal Condon MD w/o damage to nail, subs 12/16/2018 Z79.4 manager long term care (current) use of insulin Jemal Condon MD 12/16/2018 E11.40 Type 2 diabetes mellitus with Jemal Condon MD diabetic neuropathy, unsp 12/16/2018 M67.461 Ganglion, right knee Jemal Condon MD 12/09/2018 Z79.4 manager long term care (current) use of insulin Jemal Condon MD 12/09/2018 E11.42 Type 2 diabetes mellitus with Jemal Condon MD diabetic polyneuropathy 12/09/2018 S91.111S Laceration without foreign body of Jemal Condon MD right great toe without d 12/09/2018 S92.422D Displaced fracture of distal phalanx Jemal Condon MD of left great toe, subs 12/04/2018 S92.401G Displaced unsp fx right great toe, Olive Barnett NP subs for fx w delay heal 12/03/2018 E11.40 Type 2 diabetes mellitus with JOSÉ Guerra diabetic neuropathy, unspecifi 12/03/2018 L03.032 Cellulitis of left toe JOSÉ Guerra 12/03/2018 S92.401G Displaced unsp fx right great toe, Olive Escotochan, WIRE WEAVER HELPER subs for fx w delay heal 12/03/2018 I48.91 Unspecified atrial fibrillation Olive Barnett, WIRE WEAVER HELPER 12/03/2018 I50.30 Unspecified diastolic (congestive) Olive Barnett, WIRE WEAVER HELPER heart failure 12/03/2018 E11.49 Type 2 diabetes w oth diabetic Olive Escotochan, WIRE WEAVER HELPER neurological complication 12/03/2018 M31.30 Erickson's granulomatosis without Olive Barnett, WIRE WEAVER HELPER renal involvement 12/03/2018 Z79.4 manager long term care (current) use of insulin Olive Escotochan, WIRE WEAVER HELPER 12/02/2018 S92.421D Disp fx of dist phalanx of r great Mya Constantino M.D. toe, 7thD 12/02/2018 S92.401G Displaced unsp fx right great toe, Maegan Armstrong M.D. subs for fx w delay heal 12/02/2018 L03.031 Cellulitis of right toe Mya Constantino M.D. 12/02/2018 E11.49 Type 2 diabetes w oth diabetic Maegan Armstrong M.D. neurological complication 12/02/2018 I48.91 Unspecified atrial fibrillation Maegan Armstrong M.D. 12/02/2018 I50.30 Unspecified diastolic (congestive) Maegan Armstrong M.D. heart failure 12/02/2018 M31.30 Erickson's granulomatosis without Maegan Armstrong M.D. renal involvement 12/02/2018 Z79.4 manager long term care (current) use of insulin Maegan Armstrong M.D. 12/01/2018 S92.911B Unsp fracture of right toe(s), init Juan David Mondragon M.D. encntr for open fracture 12/01/2018 S91.111A Lac w/o fb of right great toe w/o Walter Farooq M.D. damage to nail, init 12/01/2018 L03.031 Cellulitis of right toe Juan David Mondragon M.D. 12/01/2018 S92.401G Displaced unsp fx right great toe, Maegan Armstrong M.D. subs for fx w delay heal 12/01/2018 E11.40 Type 2 diabetes mellitus with Juan David Mondragon M.D. diabetic neuropathy, unsp 12/01/2018 E11.49 Type 2 diabetes w oth diabetic Maegan Armstrong M.D. neurological complication 12/01/2018 M31.30 Erickson's granulomatosis without Juan David Mondragon M.D. renal involvement 12/01/2018 I48.91 Unspecified atrial fibrillation Maegan Armstrong M.D. 12/01/2018 Z79.52 retirement (current) use of systemic Juan David Mondragon M.D. steroids 12/01/2018 I50.30 Unspecified diastolic (congestive) Maegan Armstrong M.D. heart failure 12/01/2018 M31.30 Erickson's granulomatosis without Maegan Armstrong M.D. renal involvement 12/01/2018 Z79.4 manager long term care (current) use of insulin Maegan Armstrong M.D. 11/30/2018 S92.401G Displaced unsp fx right great toe, Maegan Armstrong M.D. subs for fx w delay heal 11/30/2018 E11.49 Type 2 diabetes w oth diabetic Maegan Armstrong M.D. neurological complication 11/30/2018 S92.421A Disp fx of distal phalanx of right Mya Constantino M.D. great toe, init 11/30/2018 I48.91 Unspecified atrial fibrillation Maegan Armstrong M.D. 11/30/2018 I50.30 Unspecified diastolic (congestive) Maegan Armstrong M.D. heart failure 11/30/2018 E11.42 Type 2 diabetes mellitus with Mya Constantino M.D. diabetic polyneuropathy 11/30/2018 M31.30 Erickson's granulomatosis without Maegan Armstrong M.D. renal involvement 11/30/2018 Z79.4 manager long term care (current) use of insulin Maegan Armstrong M.D. 11/30/2018 S91.111S Laceration without foreign body of Mya Constantino M.D. right great toe without d 11/30/2018 A49.9 to nail, sequela Mya Constantino M.D. 11/29/2018 S92.401G Displaced unsp fx right great toe, Lewis Nguyen M.D.,FACP subs for fx w delay heal 11/29/2018 Z79.4 retirement (current) use of insulin Lewis Nguyen M.D., FACP 11/29/2018 E11.49 Type 2 diabetes w oth diabetic Lewis Nguyen M.D., FACP neurological complication 11/29/2018 M31.30 Erikcson's granulomatosis without Lewis Nguyen M.D., FACP renal involvement 11/04/2018 S92.422D Displaced fracture of distal phalanx Jemal Condon MD of left great toe, subs 10/27/2018 S92.422D Displaced fracture of distal phalanx Jemal Condon MD of left great toe, subs Plan of Treatment Future Appointment(s):05/08/2019 10:00 am - Tawny Mason, N.P. at [facility]05/08/2019 9:30 am - Ica Pacer Schedule at [facility]04/28/2019 10:00 am - Ica ECHO Schedule at [facility]2018 10:30 am - Jemal Condon MD at [facility]07/14/2019 9: 45 am - Gin Alvarado M.D. at [facility]04/24/2019 - Gin Alvarado M.D.I48.2 Chronic atrial fibrillationComments:s/p AVN ablation, 100% paced.Rates the same on recent interogations.Z95.0 Presence of cardiac pacemakerFollow up:PO with upcoming OV to see rates on new setting.R06.02 Shortness of breathNew Orders:Echocardiogram, Scheduled: 04/28/19Comments:I am not sure the etiology.Checking echo, trying new pacer settings.Lungs are clear.Follow up:after echo, MD or WIRE WEAVER HELPER Functional Status Description No Information Available Mental Status Description No Information Available Referrals Description No Information Available
--- OUTSIDE RECORDS SUMMARY | 2019-05-09 17:18 | XMS REPORT | Continuity of Care Document ---
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 Tablets [facility] Wound/Burn use daily on 1.5ounces Jemal Condon, 02/27/2019 Dressing wound Gel Prednisone take 5 mg daily 1000tabs M31.30 Lennox Babcock, 02/25/2018 1mg Tablets or as directed M.D. Compression Stockings please use daily 2units Lennox Babcock, 02/25/2018 as needed for M.D. Misc leg/foot swelling Furosemide 1 daily ( taken Ricardo Thompson, 11/17/2010 40 Tablets along with M.D. Potassium) Omeprazole 1 by mouth every Unknown 20mg day Capsules DR Jeff Mix 75/25 inject 18 units Unknown Kwikpen in the morning and 12 units at (75-25)100Unit/ML night with meals Supn or as directed; mdd 50 Flonase Allergy 2 puffs each Unknown Relief nare every in 50mcg/Act the morning Suspension Victoza inject 1.2 mg Unknown 18mg/3ML daily in the Solution Pen-Inject morning Tylenol take 1-2 as Unknown 325mg Tablets needed every 4 hours Invokana 1 by mouth every Unknown 300mg Tablets day Humalog before meals on , 100Unit/ML sliding scale Geno Perrin, Solution has needed N.P. Gabapentin 1 cap po bid Pesesky, 300mg Geno Perrin, Capsules N.P. Warfarin Sodium 1 tablet Shallish, Long, 4mg alternate days Tablets 1/2 tablet as directed Buspirone HCL 2 tabs po hs 60tabs Unknown 15mg Tablets Atenolol 1 tab by mouth 180tabs Gin Drewer, 25mg Tablets once a day . M.DAlyssa History Medications Keflex 1 tab by mouth 28shola Condon MD 04/03/2019 - 500mg Capsules four [...] - 325mg every day until 03/03/2019 Tablets post op visit Immunizations Description No Information Available Vital Signs Date Vital Result Comment 05/01/2019 10:32am Height 67 inches 5'7" Weight 224.00 lb BP Systolic 124 mmHg BP Diastolic 74 mmHg Body Temperature 97.8 F BMI (Body Mass Index) 35.1 kg/m2 04/24/2019 1:30pm Height 67 inches 5'7" Weight 226.00 lb Heart Rate 60 /min irregular BP Systolic Sitting 100 mmHg Lue reg cuff BP Diastolic Sitting 62 mmHg Lue reg cuff BP Systolic Standing 92 mmHg Lue reg cuff BP Diastolic Standing 58 mmHg Lue reg cuff Respiratory Rate 14 /min BMI (Body Mass Index) 35.4 kg/m2 Ejection Fraction 55-60% Results Test Date Facility Test Result H/L Range Note Laboratory test 01/15/2019 [facility] Surgical SEE RESULT [address] [place] [address] [phone] Laboratory test 01/15/2019 [facility] Point of Care 162 mg/dL High 70-[address] [place] [address] [phone] Inr/Protime 01/15/2019 [facility] Inr 2.61 High 0.82-1.[address] [place] [address] [phone] Laboratory test 01/15/2019 [facility] Point of Care 139 mg/dL High 70-[address] [place] [address] [phone] 1 SEE RESULT BELOW Name: CADE,AYANNA : [address]: Jemal Condon MD Acct: [id number] Unit: [id number] AGE: 64 Location: OR Re01/15/19 SEX: F Status: JE ASHBY SPEC: [id number] CHELSEA: 01/15/19- SUBM DR: Jemal Condon MD REQ: [id number] RECD: 01/15/19133 STATUS: SOUT _ ORDERED: Decal, LEVEL 3, LEVEL 4 ADDENDUM Addendum: Sections of bone (1A) on part 1 demonstrate chronic osteomyelitis. Addendum Signed (signature on file) jAit Lamb MD 1502 FINAL DIAGNOSIS 1. Right [...] paniagua-pink. The skin margin is inked and inside technical sales representative sections CONTINUED ON NEXT PAGE DEPARTMENT OF PATHOLOGY, [address] [place] [address] Ajit Lamb M.D. Director [facility] # [id number] RUN DATE: 01/22/19 [facility] LAB LIVE PAGE 2 Patient: AYANNA MOHAMUD [id number] (Continued) GROSS DESCRIPTION (Continued) are submitted in cassettes A and B to include bone following decalcification in cassette A. 2. The specimen is received in formalin labeled, Right Knee Ganglion Cyst, and consists of a 5.0 x 3.4 x 1.0 cm paniagua-pink shaggy focally disrupted rubbery unilocular cyst containing paniagua-pink mucus. The specimen is serially sectioned and inside technical sales representative sections are submitted in one cassette. Signed by and Reported on: Briseyda Conley MD 01/16/19 1341 END OF REPORT DEPARTMENT OF PATHOLOGY, [address] [place] [address] Ajit Lamb M.D. Director [facility] # [id number] 2 Data Warehouse Manager: [id number] Standard intensity warfarin therapeutic range: 2.0-3.0 High intensity warfarin therapeutic range: 2.5-3.5 4 Data Warehouse Manager: [id number] Procedures Date Code Description Status 04/28/2019 67783 ECHO Transthoracic, Real-Time 2D With Doppler And Color Completed Flow 03/09/2019 08922 Aspiration &/Or Inj Of Ganglion Cyst(S) Any Location Completed 02/27/2019 31346 Aspiration &/Or Inj Of Ganglion Cyst(S) Any Location Completed 01/15/2019 94319 Amputation,Toe;Interphalangeal Joint Completed 01/15/2019 05647 Excision Lesion Meniscus/Capsule Knee Completed 01/15/2019 29402 Excision Lesion Meniscus/Capsule Knee Completed 01/06/2019 29016 EKG Tracing & Interpretation Completed 12/18/2018 63427 Icd Eval Sing,Dual,Multi Lead Remote Recpt Transm Tech Rev Completed Tech S 12/18/2018 64642 Icd Eval Sing,Dual,Multi Lead Remote Recpt Transm Tech Rev Completed Tech S 12/18/2018 41975 Pacemaker Check Remote Up To 90Days Single,Dual,Multiple Completed Lead 12/18/2018 04734 Pacemaker Check Remote Up To 90Days Single,Dual,Multiple Completed Lead Medical Devices Description No Information Available Encounters Type Date Location Provider Dx Diagnosis Office Visit 04/24/2019 [facility] Gin Alvarado, I48.2 Chronic atrial 1:30p Of Sludge Filtration Attendant M.D. fibrillation Z95.0 Presence of cardiac pacemaker R06.02 Shortness of breath Office Visit 04/17/2019 2:15p Orthopedic Jemal Condon Z47.81 Encounter for Services Of orthopedic C.M.A. 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 insulin E11.42 Type 2 diabetes mellitus with diabetic polyneuropathy S91.111S Lac w/o fb of right great toe w/o damage to nail, sequela S92.422D Disp fx of dist phalanx of l great toe, 7thD Office Visit 12/04/2018 [facility] S92.401G Displaced unsp 12:52p Assoc,pc Shortle, POWERPLANT OPERATOR fx right great Hospitalists toe, subs for fx w delay heal Office Visit 12/03/2018 [facility] Nicolette Domingo, E11.40 Type 2 diabetes 11:57a Services Of Ilene.M.A. 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 fx [...] to nail, init Office Visit 12/01/2018 12:[facility]p [facility] S92.401G Displaced uns Assocsarah M.D. 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 Z79.4 retirement (current) use of insulin Office Visit 11/30/2018 1:34p Orthopedic May Dougie, S92.421A Disp fx of Services Of Brayden Alejandre distal phalanx of right great toe, init E11.42 Type 2 diabetes mellitus with diabetic polyneuropathy S91.111S Lac w/o fb of right great toe w/o damage to nail, sequela A49.9 Bacterial infection, unspecified [facility] S[facility].401G Displaced unsp 12:50p Assoc,sarah Nguyen M.D.,FACP fx right great Hospitalists toe, subs for fx w delay heal Z79.4 computer terminal operator (current) use of insulin E11.49 Type 2 diabetes w oth diabetic neurological complication 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 Office Visit 11/04/2018 1:15p Orthopedic Jemal Condon, S92.422D Disp fx of Services Of MD lopez phalanx C.M.AAlyssa of l great toe, 7thD Assessments Date Code Description Provider 05/01/2019 Z89.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 great toe Jemal Condon MD 05/01/2019 M67.461 Ganglion, right knee Jemal Condon MD 05/01/2019 L97.811 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 to breakdown of skin 04/28/2019 R06.02 Shortness of breath Ica ECHO Schedule 04/24/2019 I48.2 Chronic atrial fibrillation Gin Alvarado [...] 03/24/2019 Z47.81 Encounter for orthopedic aftercare Lupe Helendale, RPA-C following surgical amputa 03/24/2019 M67.461 Ganglion, right knee Lupe Helendale, RPA-C 03/09/2019 Z47.81 Encounter for orthopedic aftercare Jemal Condon MD following surgical amp 03/09/2019 Z89.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 great toe Jemal Condon MD 03/09/2019 M6Dana.461 Ganglion, right knee Jemal Condon MD 03/04/2019 Z47.81 Encounter for orthopedic aftercare Jemal Condon MD following surgical amp 03/04/2019 Z89.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 great espinoza Condon MD 03/04/2019 M67.461 Ganglion, right knee Jemal Condon MD 02/27/2019 M67.461 Ganglion, right knee Lupe Helendale, RPA-C 02/27/2019 Z89.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 great toe Lupe Krissy, RPA-C 02/27/2019 Z47.81 Encounter for orthopedic aftercare Lupe [place]end[place], RPA-C following surgical amputa 02/18/2019 M67.461 Ganglion, right knee Jemal Condon MD 02/18/2019 Z89.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 great toe Jemal Condon MD 02/18/2019 Z47.81 Encounter for orthopedic aftercare Jemal Condon MD following surgical amputa 02/13/2019 M67.461 Ganglion, right knee Lupe [place], RPA-C 02/13/2019 Z89.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 great toe Lupe Krissy, RPA-C 02/13/2019 Z47.81 Encounter for orthopedic aftercare Lupe [place]end[place], RPA-C following surgical amputa 02/06/2019 M67.461 Ganglion, right knee Jemal Condon MD 02/06/2019 Z89.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 great toe Jemal Condon MD 02/06/2019 Z47.81 Encounter for orthopedic aftercare Jemal Condon MD following surgical amp 01/28/2019 M67.461 Ganglion, right knee Jemal Condon MD 01/28/2019 Z89.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 great toe Jemal Condon MD 01/28/2019 Z47.81 Encounter for orthopedic aftercare Jemal Condon MD following surgical amp 01/23/2019 M67.461 Ganglion, right knee Jemal Condon MD 01/23/2019 M20.5x1 Other deformities of toe(s) Jemal Condon MD (acquired), right foot 01/20/2019 M67.461 Gely, right knee Jemal Condon MD 01/20/2019 M20.5x1 [...] M.D. 01/06/2019 I48.2 Chronic atrial fibrillation Tawny Mason, N.P. 01/06/2019 I49.5 Sick sinus syndrome Tawny Mason, N.P. 01/06/2019 Z95.0 Presence of cardiac pacemaker Tawny Mason, N.P. 01/05/2019 E11.40 Type 2 diabetes mellitus with Jemal Condon MD diabetic neuropathy, unspecifi 01/05/2019 Z79.4 retirement (current) use of insulin Jemal Condon MD 01/05/2019 S91.111D Laceration without foreign body of Jemal Condon MD right great toe without d 01/05/2019 M67.461 Ganglion, right knee Jemal Condon MD 12/30/2018 Z79.4 retirement (current) use of insulin Jemal [...] Device Checks 12/18/2018 I49.5 Sick sinus syndrome iGn Alvarado M.D. 12/18/2018 I49.5 Sick sinus syndrome [...] w/o damage to nail, subs 12/16/2018 Z79.4 retirement (current) use of insulin Jemal Condon MD 12/16/2018 E11.40 Type 2 diabetes mellitus with Jemal Condon MD diabetic neuropathy, unsp 12/16/2018 M67.461 Ganglion, right knee Jemal Condon MD 12/09/2018 Z79.4 computer terminal operator (current) use of insulin Jemal Condon MD [...] unsp fx right great toe, Olive Escotochan, POWERPLANT OPERATOR subs for fx w delay heal 12/03/2018 I48.91 Unspecified atrial fibrillation Olive Ericka, POWERPLANT OPERATOR 12/03/2018 I50.30 Unspecified diastolic (congestive) Olive Ericka, POWERPLANT OPERATOR heart failure 12/03/2018 E11.49 Type 2 diabetes w oth diabetic Olive Ericka, POWERPLANT OPERATOR neurological complication 12/03/2018 M31.30 Erickson's granulomatosis without Olive Ericka, POWERPLANT OPERATOR renal involvement 12/03/2018 Z79.4 retirement (current) use of insulin Olivetom Barnett, POWERPLANT OPERATOR 12/02/2018 S92.421D Disp fx of dist phalanx [...] Maegan Armstrong M.D. renal involvement 12/02/2018 Z79.4 computer terminal operator (current) use of insulin Maegan Armstrong M.D. [...] Maegan Armstrong M.D. renal involvement 12/01/2018 Z79.4 computer terminal operator (current) use of insulin Maegan Armstrong M.D. [...] Maegan Armstrong M.D. renal involvement 11/30/2018 Z79.4 computer terminal operator (current) use of insulin Maegan Armstrong M.D. [...] Nguyen M.D., FACP neurological complication 11/29/2018 M31.30 Erickson's granulomatosis without Lewis Nguyen M.D., FACP renal involvement 11/04/2018 S92.422D Displaced fracture of distal phalanx Jemal Condon MD of left great toe, subs Plan of Treatment Future Appointment(s):05/22/2019 10:15 am - [facility] 9:45 am - Gin Alvarado M.D. at [facility]05/01/2019 - Jemal Condon MDZ89.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 great toeM67.461 Ganglion, right kneeL97.811 Non-pressure chronic ulcer of other part of right lower leg limited to breakdown of skinFollow up:Follow Up: 3 weeks Functional Status Description No Information Available Mental Status Description No Information Available Referrals Description No Information Available
--- OUTSIDE RECORDS SUMMARY | 2019-05-09 17:18 | XMS REPORT | Summary of Care ---
:1955 Author Organization [facility] Address [address] [address] Care Team Providers Name Role Phone Long Calderón MD Primary Care Provider Reason for Visit Reason Comments Follow Up Diabetes Mellitus pt checking suagr 6x daily Encounter Details Date Type Department Care Team Description 04/14/2019 Office Visit Sandee Kang Dysuria (Primary Dx) Endocrinology-[facility] [address] [facility] [address] [address] [facility] [address] [address] [address] [place] [id number] [phone] Allergies Active Allergy Reactions Severity Noted Date Comments Albuterol 11/11/2008 Bactrim 11/11/2008 Lantus Swelling 03/31/2019 Codeine 11/11/2008 Hydrocodone Other 11/11/2008 Nausea vs. Low blood pressure Lyrica Other 12/01/2013 [place] funny Metformin GI Reaction 08/18/2012 documented as of this encounter (statuses as of 04/14/2019) Medications Medication Sig Dispensed Refills Start Date End Date Status lisinopril (PRINIVIL, Take 1 Tab by 0 Active ZESTRIL) 5 MG Oral Tab mouth DAILY. LASIX 40 MG Oral Tab Take 1 Tab by 0 Active mouth DAILY. potassium chloride Take 1 Tab by 0 Active (MICRO-K) 20 MEQ Oral mouth DAILY. Tab CR atenolol (TENORMIN) 25 Take 1 Tab by 0 Active MG Oral Tab mouth TWICE DAILY. warfarin (COUMADIN) 5 Take 4 mg by mouth 0 Active MG Oral Tab DAILY. Alternates 4 mg and 2 mg every other day predniSONE (DELTASONE) Take 5 mg by mouth 0 Active 1 MG Oral Tab DAILY. Omeprazole (PRILOSEC Take by mouth. 0 Active PO) Insulin Syringe-Needle 1 Each by Does not 500 Each 3 06/02/2015 Active U-100 (BD INSULIN apply route FIVE SYRINGE ULTRAFINE) 31G TIMES DAILY. X 5/16" 1 ML Does not apply MiscIndications: Type 2 diabetes mellitus with complication (HCC) Insulin Pen Needle 32G 1 Each by Does not 100 Each 3 06/02/2015 Active X 4 MM Does not apply apply route MiscIndications: Type DIRECTED. 2 diabetes mellitus with complication (HCC) Glucose Blood (TRUE 1 Each by In Vitro 0 Active METRIX BLOOD GLUCOSE route SIX TIMES TEST) In Vitro Strip DAILY. E11.9 test 6 times daily True Metrix test strips Insulin Lispro Inject 20 Units 0 Active (HUMALOG) 100 UNIT/ML beneath the skin Subcutaneous Solution THREE TIMES DAILY. Cartridge Sliding scale Canagliflozin Take 300 mg by 0 Active (INVOKANA) 100 MG Oral mouth DAILY. 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 diabetes mellitus with complication, with long-term current use of insulin (HCC) clotrimazole-betametha APPLY CREAM 45 Each 3 05/19/2018 Active sone (LOTRISONE) TOPICALLY TO 1-0.05 % Apply AFFECTED AREA externally NEEDED CreamIndications: Type 2 diabetes mellitus with complication (HCC) diclofenac (VOLTAREN) 4 g by Topical 1 Tube 3 11/25/2018 Active 1 % Transdermal Gel route FOUR TIMES DAILY. VICTOZA 18 MG/3ML INJECT 1.8 MG 9 Each 4 01/07/2019 Active Subcutaneous Solution BENEATH THE SKIN Pen-injector DAILY Insulin NPH, Human,, Inject 15 Units 15 mL 3 03/31/2019 Active Isophane, 100 UNIT/ML beneath the skin Subcutaneous TWICE DAILY. 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 documented as of this encounter Last Filed Vital Signs Vital Sign Reading Time Taken Comments Blood Pressure 116/58 04/14/2019 11:46 AM EDT Pulse 65 04/14/2019 11:46 AM EDT Temperature - - Respiratory Rate - - Oxygen Saturation - - Inhaled Oxygen Concentration - - Weight 99.8 kg (220 lb) 04/14/2019 11:46 AM EDT Height 173.7 cm (5' 8.4") 04/14/2019 11:46 AM EDT Body Mass Index 33.06 04/14/2019 11:46 AM EDT documented in this encounter Patient Instructions Patient InstructionsGeno Kang FNP - 04/14/2019 11:40 AM EDTSwitch to 75/25 mixed insulin Take 25 units with all three meals Call blood sugars Weekly [phone] signed by Geno Kang FNP at 04/14/2019 12:03 PM EDT documented in this encounter Progress Notes Geno Kang FNP - 04/14/2019 11:40 AM EDT NAME: Ayanna Leon : 1955 DATE: 04/14/2019 SUBJECTIVE: Ayanna Leon is a 64-y.o. female is here for a follow-up for her Diabetes Mellitus type 2 uncontrolled for >10 years. A1C remains elevated at 9.2. She has tried multiple insulins and had "intolerance" Toujeo, levemir and lantus cause distal edema . NPH gives her a severe headache. The only medications she has been able to tolerate are Humalog, Victoza, and Invokana She did not bring in blood sugars. She is disappointed in weight gain . She adheres to diet. Activity limited by Denies any episode of hypoglycemia requiring assistance. Is current on opthalmologic exam. History of retinopathy. Has distal neuropathy. Currently left foot booted due to fractured toe. Normal GFR despite erickson's on steroids. Current medications , allergies, and all history have been reviewed. Current Outpatient Medications Medication Sig atenolol (TENORMIN) 25 MG Oral Tab Take 1 Tab by mouth TWICE DAILY. Canagliflozin (INVOKANA) 100 MG Oral Tab Take 300 mg by mouth DAILY. clotrimazole-betamethasone (LOTRISONE) 1-0.05 % Apply externally Cream Apply to area as needed clotrimazole-betamethasone (LOTRISONE) 1-0.05 % Apply externally Cream APPLY CREAM TOPICALLYTO AFFECTED AREA NEEDED diclofenac (VOLTAREN) 1 % Transdermal Gel 4 g by Topical route FOUR TIMES DAILY. gabapentin (NEURONTIN) 300 MG Oral Cap Take 2 Caps by mouth FOUR TIMES DAILY. Glucose Blood (TRUE METRIX BLOOD GLUCOSE TEST) In Vitro Strip 1 Each by In Vitro route SIX TIMES DAILY. E11.9 test 6 times daily True Metrix test strips Insulin Lispro (HUMALOG) 100 UNIT/ML Subcutaneous Solution Cartridge Inject 20 Units beneath the skin THREE TIMES DAILY. Sliding scale Insulin NPH, Human,, Isophane, 100 UNIT/ML Subcutaneous Suspension Pen- injector Inject 15 Units beneath the skin TWICE DAILY. Dx E11.9 Insulin Pen Needle 32G X 4 MM Does not apply Misc 1 Each by Does not apply route DIRECTED. Insulin Syringe-Needle U-100 (BD INSULIN SYRINGE ULTRAFINE) 31G X 5/16" 1 ML Does not apply Misc 1 Each by Does not apply route FIVE TIMES DAILY. LASIX 40 MG Oral Tab Take 1 Tab by mouth DAILY. lisinopril (PRINIVIL, ZESTRIL) 5 MG Oral Tab Take 1 Tab by mouth DAILY. Omeprazole (PRILOSEC PO) Take by mouth. potassium chloride (MICRO-K) 20 MEQ Oral Tab CR Take 1 Tab by mouth DAILY. predniSONE (DELTASONE) 1 MG Oral Tab Take 5 mg by mouth DAILY. VICTOZA 18 MG/3ML Subcutaneous Solution Pen-injector INJECT 1.8 MG BENEATH THE SKIN DAILY warfarin (COUMADIN) 5 MG Oral Tab Take 4 mg by mouth DAILY. Alternates 4 mg and 2 mg every other day No current facility-administered medications for this visit. Allergies Allergen Reactions Albuterol Bactrim Basaglar Kwikpen [Lantus] Swelling Codeine Hydrocodone Other Nausea vs. Low blood pressure Lyrica Other [place] funny Metformin GI Reaction Past Medical History: Diagnosis Date Anxiety Atrial fibrillation (HCC) Diabetic gastroparesis (HCC) DM (diabetes mellitus) (HCC) dx 1993, insulin since Heart disease, unspecified Leukocytoclastic vasculitis Obesity Pulmonary embolism (HCC) Sarcoidosis Unspecified hypertensive heart disease Alex's disease Social History Socioeconomic History Marital status: Spouse name: Not on file Number of children: Not on file Years of education: Not on file Highest education level: Not on file Occupational History Not on file Social Needs Financial resource strain: Not on file Food insecurity: Worry: Not on file Inability: Not on file Transportation needs: Medical: Not on file Non-medical: Not on file Tobacco Use Smoking status: Never Smoker Smokeless tobacco: Never Used Substance and Sexual Activity Alcohol use: No Drug use: No Sexual activity: Not on file Lifestyle Physical activity: Days per week: Not on file Minutes per session: Not on file Stress: Not on file Relationships Social connections: Talks on phone: Not on file Gets together: Not on file Attends hinduism service: Not on file Active member of club or organization: Not on file Attends meetings of clubs or organizations: Not on file Relationship status: Not on file Intimate partner violence: Fear of current or ex partner: Not on file Emotionally abused: Not on file Physically abused: Not on file Forced sexual activity: Not on file Other Topics Concern Not on file Social History Narrative Patient is disabiled since 1993. Patient is and has 2 children. Denies coffee, tea or soda intake. Drinks juice, water and hot chocolate. Family History Problem Relation Age of Onset Heart Mother [place] at age 69 Diabetes Mother Heart Disease Mother Heart Brother MT at age 45 Diabetes Brother Heart Disease Brother Emphysema Father at age 78 OBJECTIVE: Blood pressure 116/58, pulse 65, height 5' 8.4" (1.737 m), weight 220 lb (99.8 kg). BP 116/58 | Pulse 65 | Ht 5' 8.4" (1.737 m) | Wt 220 lb ( 99.8 kg) | BMI 33.06 kg/m General: no distress. Eyes: conjunctiva pink Neck: no thyroid enlargement or nodules. Heart: regular rate and rhythm, no murmur. Lungs: Clear to auscultation. Abdomen: Bowel sounds present Left foot Diabetic foot exam booted post toe amputation Right foot diabetic exam Visual exam: normal Sensory: Filament test absent Pulse: Pedal pulse absent Extremities: No edema. Psych: Alert and oriented. Lab Results Component Value Date GLYCO 7.6 (H) 03/24/2014 Lab Results Component Value Date GLYCOPOCT 8.4 (A) 01/20/2015 GLYCOPOCT 9.4 (A) 12/02/2013 GLYCOPOCT 9.5 (A) 06/30/2013 ASSESSMENT and PLAN: 1. 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 Will try her on humalog mixed insulin Call me blood sugars weekly Consider U500 humalog 2. Hypertension Acceptable control 3. Neuropathy stable 5. Retinopathy Per ophthalmology No follow-ups on file. [facility] Section of Endocrinology 04/14/2019 13:12 1: 20 PM EDTdocumented in this encounter Plan of Treatment Date Type Specialty Care Team Description 06/01/2019 Office Visit Endocrinology Geno Kang FNP [address] [address] 10/22/2019 Office Visit Endocrinology Geno Kang FNP [address] [id number] Name Type Priority Associated Diagnoses Order Schedule URINE CULTURE (C&S) Lab Routine Dysuria 1 Occurrences starting 04/14/2019 until 10/11/2019 Health Maintenance Due Date Last Done Comments Diabetic Eye Exam 1955 MEDICARE ANNUAL WELLNESS 1955 VISIT PAP SMEAR 1955 PNEUMOCOCCAL 0-64 YRS (1 of 1961 1 - PPSV23) DEPRESSION SCREENING 1967 HIV SCREENING 1970 HEPATITIS C SCREENING 1995 MAMMOGRAM (SCREENING) 1995 COLONOSCOPY SCREENING 2005 ZOSTER IMMUNIZATION SERIES 2005 (1 of 2) HEMOGLOBIN A1C 02/25/2019 11/25/2018, 12/11/2017, 06/12/2017, Additional history exists INFLUENZA VACCINE (#1) 2019 FOOT EXAM 11/26/2019 11/25/2018, 11/25/2018, 09/04/2018, Additional history exists LIPID DISORDER SCREENING 11/26/2019 11/25/2018, 10/06/2015, 03/24/2014, Additional history exists HPV IMMUNIZATION SERIES Aged Out No longer eligible based on patient's age to complete this topic MENINGOCOCCAL VACCINE IMM Aged Out No longer eligible based on patient's age to complete this topic documented as of this encounter Results Not on filedocumented in this encounter Visit Diagnoses Diagnosis Dysuria - Primary documented in this encounter Insurance Payer Benefit Plan / Subscriber ID Effective Dates Phone Address Type Group MEDICARE MEDICARE PART A xxxxxxxxxxx 1997-Present Medicare & B CIGNA COMMERCIAL C[employer]NA [facility] xxxxxxxxxxx 2016-Present [employer] Guarantor Name Account Type Relation to Date of Phone Billing Patient Address Ayanna Leon Personal/Family 1955 [phone] [id number] ([address]) [address] [phone] [place] (Work) [id number] documented as of this encounter
--- OUTSIDE RECORDS SUMMARY | 2019-05-09 17:18 | XMS REPORT | Continuity of Care Document ---
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 Onset: 06/22/2013 Chronic atrial fibrillation Gin Alvaraod M.D. Onset: 07/22/2015 Obstructive sleep apnea syndrome [...] Unknown Never Smoked Cigarettes Smoking Status Reviewed: 04/17/19 Never Smoked Cigarettes ETOH Use Denies alcohol [...] Medications SIG Qnty Indications Ordering Date Provider Keflex 1 tab by mouth 28caps Jemal Condon, 04/03/2019 500mg four times a day Capsules [facility] use daily on 1.5ounces Jemal Condon, 02/27/2019 Wound/Burn wound MD Dressing Gel Prednisone take 5 mg daily 1000tabs M31.30 Lennox Babcock, 02/25/2018 1mg or as directed M.D. Tablets Compression please use daily 2units Lennox Babcock, 02/25/2018 Stockings as needed for M.D. Misc leg/foot swelling Lisinopril 1 tab by mouth 30tabs Gin Alvarado, 04/13/2014 5mg daily M.D. Tablets Furosemide 1 daily ( taken Ricardo Thompson, 11/17/2010 40 along with M.D. Tablets Potassium) Humalog Mix 75/25 inject 18 units Unknown Kwikpen [...] 1 cap po bid Pesesky, 300mg Geno Aydin, Capsules N.P. Klor-Con M20 1 tablet po daily 30tabs Unknown 20Meq Tablets ER Warfarin Sodium 1 tablet Shallsue Long, 4mg alternate days MD Tablets 1/2 tablet as directed Buspirone HCL 2 tabs po hs 60tabs Unknown 15mg Tablets Atenolol 1 tab by mouth 180tabs Gin Alvarado, 25mg twice a day M.D. Tablets History Medications Keflex 1 tab by mouth 28caps Jemal Condon MD 02/19/2019 - 500mg Capsules four [...] Available Vital Signs Date Vital Result Comment 04/17/2019 2:19pm Height 67 inches 5'7" Heart Rate 88 /min BP Systolic 126 mmHg BP Diastolic 90 mmHg Respiratory Rate 18 /min Body Temperature 98.9 F Pain Level 0 04/03/2019 10:36am Height 67 inches 5'7" Weight 215.00 lb BP Systolic 100 mmHg BP Diastolic 64 mmHg Body Temperature 97.7 F BMI (Body Mass Index) 33.7 kg/m2 Results Test Date Facility Test Result H/L Range Note Laboratory test 01/15/2019 [facility] Surgical SEE RESULT [address] [place] [address] [phone] Laboratory test 01/15/2019 [facility] Point of Care 162 mg/dL High 70-[address] [place] [address] [phone] Inr/Protime 01/15/2019 [facility] Inr 2.61 High 0.82-1.[address] [place] [address] [phone] Laboratory test 01/15/2019 [facility] Point of Care 139 mg/dL High 70-[address] [place] [address] [phone] 1 SEE RESULT BELOW Name: AYANNA MOHAMUD : [address]: Jemal Condon MD Acct: [id number] Unit: [id number] AGE: 64 Location: OR Re01/15/19 SEX: F Status: JE ASHBY SPEC: [id number] CHELSEA: 01/15/19- SUBM DR: Jemal Condon MD REQ: [id number] RECD: 01/15/191331 STATUS: SOUT _ ORDERED: Decal, LEVEL 3, [...] paniagua-pink. The skin margin is inked and electronics parts sales representative sections CONTINUED ON NEXT PAGE DEPARTMENT OF PATHOLOGY, [address] [place] [address] Ajti Lamb M.D. Director [facility] ANN # [id number] RUN DATE: 01/22/19 [facility] LAB LIVE PAGE 2 Patient: AYANNA MOHAMUD [id number] (Continued) GROSS DESCRIPTION (Continued) are submitted in cassettes A and B to include bone following decalcification in cassette A. 2. The specimen is received in formalin labeled, Right Knee Ganglion Cyst, and consists of a 5.0 x 3.4 x 1.0 cm paniagua-pink shaggy focally disrupted rubbery unilocular cyst containing paniagua-pink mucus. The specimen is serially sectioned and electronics parts sales representative sections are submitted in one cassette. Signed by and Reported on: Briseyda Conley MD 01/16/19 1341 END OF REPORT DEPARTMENT OF PATHOLOGY, [address] [place] [address] Ajit Lamb M.D. Director [facility] # [id number] 2 Social Science Professor: [id number] Standard intensity warfarin therapeutic range: 2.0-3.0 High intensity warfarin therapeutic range: 2.5-3.5 4 Social Science Professor: [id number] Procedures Date Code Description Status 03/09/2019 Aspiration &/Or Inj Of Ganglion Cyst(S) Any Location Completed 02/27/2019 Aspiration &/Or Inj Of Ganglion Cyst(S) Any Location Completed 01/15/2019 61248 Amputation,Toe;Interphalangeal Joint Completed 01/15/2019 10795 Excision Lesion Meniscus/Capsule Knee Completed 01/15/2019 71190 Excision Lesion Meniscus/Capsule Knee Completed 01/06/2019 17077 EKG Tracing & Interpretation Completed 12/18/2018 00905 Icd Eval Sing,Dual,Multi Lead Remote Recpt Transm Tech Rev Completed Tech S 12/18/2018 85170 Icd Eval Sing,Dual,Multi Lead Remote Recpt Transm Tech Rev Completed Tech S 12/18/2018 80045 Pacemaker Check Remote Up To 90Days Single,Dual,Multiple Completed Lead 12/18/2018 22939 Pacemaker Check Remote Up To 90Days Single,Dual,Multiple Completed Lead Medical Devices Description No Information Available Encounters Type Date Location Provider Dx Diagnosis Office Visit 04/17/2019 Linda Condon, Z89.411 Acquired absence 2:15p Services Of Brayden REDMOND of right great toe M67.461 Ganglion, right knee Office Visit 01/06/2019 9:00a [facility] Tawny S. I48.2 Chronic atrial Of Instrumentation And Controls Technician Marlon, N.P. fibrillation I49.5 Sick sinus syndrome Z95.0 Presence of cardiac pacemaker Office Visit 12/30/2018 10:15a Linda Condon Z79.4 skilled nursing Services Of (current) use of Brayden insulin E11.40 Type 2 diabetes mellitus with diabetic neuropathy, unsp S91.111D [place] w/o fb of right great toe w/o damage to nail, subs M67.461 Ganglion, right knee Office Visit 12/16/2018 9:00a Orthopedic Jemal Roseanna, S91.111D [place] w/o fb of Services Of right great C.M.A. toe w/o damage to nail, subs S91.112D Laceration w/o fb of left great toe w/o damage to nail, subs Z79.4 skilled nursing (current) use of insulin E11.40 Type 2 diabetes mellitus with diabetic neuropathy, unsp M67.461 Ganglion, right knee Office Visit 12/09/2018 10:00a Orthopedic Jemal Condon, Z79.4 skilled nursing Services Of (current) use of C.M.A. insulin E11.42 Type 2 diabetes mellitus with diabetic polyneuropathy S91.111S [place] w/o fb of right great toe w/o damage to nail, sequela S92.422D Disp fx of dist phalanx of l great toe, 7thD Office Visit 12/04/2018 [facility] S92.401G Displaced unsp 12:52p Assoc,pc Ericka, DIRECTOR TELEVISION NEWS fx right great Hospitalists toe, subs for fx w delay heal Office Visit 12/03/2018 [facility] S92.401G Displaced unsp 12:52p Assoc,pc Ericka, DIRECTOR TELEVISION NEWS fx right great Hospitalists toe, subs for fx w delay heal I48.91 Unspecified atrial fibrillation I50.30 Unspecified diastolic (congestive) heart failure E11.49 Type 2 diabetes w oth diabetic neurological complication 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 diabetic neuropathy, unsp L03.032 Cellulitis of left toe Office Visit 12/02/2018 1:03p Orthopedic Mya Constantino S92.421D Disp fx of Services Of Brayden Alejandre dist phalanx of r great toe, 7thD L03.031 Cellulitis of right toe Office Visit 12/02/2018 12:51p [facility] S92.401G Displaced unsp Assoc,sarah Armstrong M.D. 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 right great toe w/o damage to nail, init Office Visit 12/01/2018 12:51p [facility] S92.401G Displaced [facility] Assoc,sarah Armstrong M.D. 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 Z79.4 skilled nursing (current) use of insulin Office Visit 11/30/2018 1:34p Orthopedic Mya Constantino S92.421A Disp fx of Services Of Brayden Alejandre distal phalanx of right great toe, init E11.42 Type 2 diabetes mellitus with diabetic polyneuropathy S91.111S Lac w/o fb of right great toe w/o damage to nail, sequela A49.9 Bacterial infection, unspecified Office Visit 11/29/2018 [facility] S92.401G Displaced unsp 12:50p Assoc,sarah Nguyen M.D.,FACP fx right great Hospitalists toe, subs for fx w delay heal Z79.4 skilled nursing (current) use of insulin E11.49 Type 2 [...] great toe, 7thD Office Visit 10/20/2018 1:15p Linda Condon S92.422A Disp fx of Services Of distal C.M.A. phalanx of left great toe, init Assessments Date Code Description Provider 04/17/2019 Z89.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 great toe Jemal Condon MD 04/17/2019 M67.461 Ganglion, right knee Jemal Condon MD 04/03/2019 Z47.81 Encounter for orthopedic aftercare Jemal Condon MD following surgical amputation 04/03/2019 Z89.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 great toe Jemal Condon MD 04/03/2019 M67.461 Ganglion, right knee Jemal Condon MD 03/24/2019 Z89.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 great toe SAVAGE Izquierdo 03/24/2019 Z47.81 Encounter for orthopedic aftercare SAVAGE Izquierdo following surgical amputa 03/24/2019 M67.461 Ganglion, right knee SAVAGE Izquierdo 03/09/2019 Z47.81 Encounter for orthopedic aftercare Jemal Condon MD following surgical amp 03/09/2019 Z89.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 great toe Jemal Condon MD 03/09/2019 M67.461 Ganglion, right knee Jemal Condon MD 03/04/2019 Z47.81 Encounter for orthopedic aftercare Jemal Condon MD following surgical amp 03/04/2019 Z89.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 great toe Jemal Condon MD 03/04/2019 M67.461 Ganglion, right knee Jemal Condon MD 02/27/2019 M67.461 Ganglion, right knee Lupe Krissy, RPA-C 02/27/2019 Z89.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 great toe Lupe Krissy, RPA-C 02/27/2019 Z47.81 Encounter for orthopedic aftercare Lupe Denver, RPA-C following surgical amputa 02/18/2019 M67.461 Ganglion, right knee Jemal Condon MD 02/18/2019 Z89.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 great toe Jemal Condon MD 02/18/2019 Z47.81 Encounter for orthopedic aftercare Jemal Condon MD following surgical amputa 02/13/2019 M67.461 Ganglion, right knee Lupe Krissy, RPA-C 02/13/2019 Z89.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 great toe Lupe Denver, RPA-C 02/13/2019 Z47.81 Encounter for orthopedic aftercare Lupe Krissy, RPA-C following surgical amputa 02/06/2019 M67.461 Gely, right knee Jemal Condon MD 02/06/2019 Z89.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 great espinoza Condon MD 02/06/2019 Z47.81 Encounter for orthopedic aftercare Jemal Condon MD following surgical amp 01/28/2019 M67.461 Gely, right knee Jemal Condon MD 01/28/2019 Z89.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 great toe eJmal Condon MD 01/28/2019 Z47.81 Encounter for orthopedic aftercare Jemal Condon MD following surgical amp 01/23/2019 M67.Dheeraj1 Ganglion, right knee Jemal Condon MD 01/23/2019 M20.5x1 Other deformities of toe(s) Jemal Condon MD (acquired), right foot 01/20/2019 M6Dana.Dheeraj1 Gely, right knee Jemal Condon MD 01/20/2019 [...] Condon MD diabetic neuropathy, unspecifi 01/05/2019 Z79.4 parts counterman (current) use of insulin Jemal Condon MD 01/05/2019 S91.111D Laceration without foreign body of Jemal Condon MD right great toe without d 01/05/2019 M67.461 Gely, right knee Jemal Condon MD 12/30/2018 Z79.4 skilled nursing (current) use of insulin Jemal Condon MD 12/30/2018 E11.40 Type 2 diabetes mellitus with Jemal Condon MD diabetic neuropathy, unspecifi 12/30/2018 S91.111D Laceration without foreign body of Jemal Condon MD right great toe without d 12/30/2018 M67.461 Gely, right knee Jemal Condon MD 12/18/2018 I48.2 [...] w/o damage to nail, subs 12/16/2018 Z79.4 parts counterman (current) use of insulin Jemal Condon MD 12/16/2018 E11.40 Type 2 diabetes mellitus with Jemal Condon MD diabetic neuropathy, unsp 12/16/2018 M67.461 Ganglion, right knee Jemal Condon MD 12/09/2018 Z79.4 skilled nursing (current) use of insulin Jemal Condon MD 12/09/2018 E11.42 Type 2 diabetes mellitus with Jemal Condon MD diabetic polyneuropathy 12/09/2018 S91.111S Laceration without foreign body of Jemal Condon MD right great toe without d 12/09/2018 S92.422D Displaced fracture of distal phalanx Jemal Condon MD of left great toe, subs 12/04/2018 S92.401G Displaced unsp fx right great toe, Olive Barnett, DIRECTOR TELEVISION NEWS subs for fx w delay heal 12/03/2018 E11.40 Type 2 diabetes mellitus with JOSÉ Guerra diabetic neuropathy, unspecifi 12/03/2018 L03.032 Cellulitis of left toe JOSÉ Guerra 12/03/2018 S92.401G Displaced unsp fx right great toe, Olive Barnett, DIRECTOR TELEVISION NEWS subs for fx w delay heal 12/03/2018 I48.91 Unspecified atrial fibrillation Olive Barnett NP 12/03/2018 I50.30 Unspecified diastolic (congestive) Olive Barnett NP heart failure 12/03/2018 E11.49 Type 2 diabetes w oth diabetic Olive Barnett NP neurological complication 12/03/2018 M31.30 Erickson's granulomatosis without Olive Barnett NP renal involvement 12/03/2018 Z79.4 parts counterman (current) use of insulin Olive Barnett NP 12/02/2018 S92.421D Disp fx of dist phalanx [...] Maegan Armstrong M.D. renal involvement 12/02/2018 Z79.4 skilled nursing (current) use of insulin Maegan Armstrong M.D. [...] atrial fibrillation Maegan Armstrong M.D. 12/01/2018 Z79.52 parts counterman (current) use of systemic Juan David Mondragon M.D. steroids 12/01/2018 I50.30 Unspecified diastolic (congestive) Maegan Armstrong M.D. heart failure 12/01/2018 M31.30 Erickson's granulomatosis without Maegan Armstrong M.D. renal involvement 12/01/2018 Z79.4 skilled nursing (current) use of insulin Maegan Armstrong M.D. [...] Maegan Armstrong M.D. renal involvement 11/30/2018 Z79.4 parts counterman (current) use of insulin Maegan Armstrong M.D. 11/30/2018 S91.111S Laceration without foreign body of Mya Constantino M.D. right great toe without d 11/30/2018 A49.9 to nail, sequela Mya Constantino M.D. 11/29/2018 S92.401G Displaced unsp fx right great toe, Lewis Nguyen M.D.,FACP subs for fx w delay heal 11/29/2018 Z79.4 parts counterman (current) use of insulin Lewis Nguyen M.D., FACP 11/29/2018 E11.49 Type 2 diabetes w oth diabetic Lewis Nguyen M.D., FACP neurological complication 11/29/2018 M31.30 Erickson's granulomatosis without Lewis Nguyen M.D., FACP renal involvement 11/04/2018 S92.422D Displaced fracture of distal phalanx Jemal Condon MD of left great toe, subs 10/27/2018 S92.422D Displaced fracture of distal phalanx Jemal Condon MD of left great toe, subs 10/20/2018 S92.422A Displaced fracture of distal phalanx Jemal Condon MD of left great toe, init Plan of Treatment Future Appointment(s):07/14/2019 9:45 am - Gin Alvarado M.D. at [facility]04/17/2019 - Jemal Condon MDZ89.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 great toeFollow up:Follow Up: 2 moomdE07.461 Ganglion, right knee Functional Status Description No Information Available Mental Status Description No Information Available Referrals Description No Information Available
[2019-05-09 17:24] LABS: ABS Basophils 0.1 10^3/ul (0-0.2); ABS Monocytes 0.9 10^3/ul (0-0.8); Eosinophil % 0.3 %; Hematocrit 46 % (35-47); Hemoglobin 15.5 g/dL (12.0-16.0); Lymphocyte % 27.2 %; Mean Corpuscular HGB Conc 34 g/dL (31-36); Mean Corpuscular Hemoglobin 28 pg (27-31); Mean Corpuscular Volume 84 fL (80-97); Mean Platelet Volume 7.7 fL (7.4-10.4); Platelet Count 334 10^3/uL (150-450); Red Blood Count 5.46 10^6 /uL (3.70-4.87); Red Cell Distribution Width 15 % (10-15); White Blood Count 10.9 10^3/uL (3.5-10.8)
[2019-05-09 17:29] LABS: INR 3.38 (0.82-1.09)
[2019-05-09 17:41] LABS: Albumin 4.3 g/dL (3.2-5.2); Albumin/Globulin Ratio 0.9 (1-3); BUN/Creatinine Ratio 33.8 (8-20); EGFR Non-African American 36.4 (>60); Globulin 4.6 g/dL (2-4); Potassium 3.7 mmol/L (3.5-5.0); Total Bilirubin 0.9 mg/dL (0.2-1.0); Total Protein 8.9 g/dL (6.4-8.9)
--- NOTE | 2019-05-09 17:50 | ED ---
HPI Cardiac - HPI Summary HPI Summary: Patient is a 64 y/o F presenting to ED with complaints of left anterior chest heaviness and SOB that have been present for the past couple of weeks. PMHx of pacemaker, the patient notes that she had her pacemaker reduced from 60 to 50. However, she felt dizzy this past week, and as a result she had her rate increased back to 60. Patient states that she had a recent cardioechogram. She states that she was informed that she had a "leaky valve". Patient had her atenolol reduced and was taken off of her lisinopril and furosemide. She was started on torsemide yesterday, 05/08/19. Patient is on spironolactone as well. Patient had CXR and bloodwork done at [facility] [place], [place]/08/19. Patient is currently scheduled for a GARETH. PMHx of diabetes is noted. BG was 180 before coming to ED. She states that Sx are worse with exertion. Nothing is noted to alleviate Sx. Fever, cough, abdominal pain, vomiting, and diarrhea are denied. No radiation of pain is reported. She notes occasional diaphoresis and endorses nausea. Hx of neuropathy, kenzie's granulomatosis noted. Patient notes that she has had partial amputations of toes of right foot. She has an ulcer at the right hawk. Patient denies tobacco, alcohol, and substance usage. Home medications and allergies are reviewed. - History of Current Complaint Chief Complaint: EDChestPainROMI Stated Complaint: CHEST PAIN PER DAUGHTER Hx Obtained From: Patient Onset/Duration: Started Weeks Ago, Still Present Timing: Constant, Lasting Weeks Pain Intensity: 8 Pain Scale Used: 0-10 Numeric Chest Pain Location: Left Anterior Chest Pain Radiates: No Character: Heaviness Aggravating Factor(s): Exertion Alleviating Factor(s): Nothing Associated Signs and Symptoms: Positive: Chest Pain, Shortness of Breath, Diaphoresis, Nausea, Other: - negative - diarrhea. Negative: Fever, Cough, Productive Cough, Nonproductive Cough, Abdominal Pain, Vomiting - Additional Pertinent History Primary Care Physician: [id number] - Allergy/Home Medications Allergies/Adverse Reactions: Allergies Allergy/AdvReac Type Severity Reaction Status Date / Time albuterol Allergy Difficulty Verified 02/20/19 15:49 Swallowing latex Allergy Unknown Verified 02/20/19 15:49 Reaction Details pregabalin [From Lyrica] Allergy Altered Verified 02/20/19 15:49 Mental Status codeine AdvReac Intermediate GI Upset Verified 02/20/19 15:49 hydrocodone AdvReac Intermediate GI Upset Verified 02/20/19 15:49 metformin AdvReac Intermediate Nausea Verified 02/20/19 15:49 Sulfa (Sulfonamide AdvReac Intermediate Nausea Verified 02/20/19 15:49 Antibiotics) sulfamethoxazole AdvReac Intermediate Nausea Verified 02/20/19 15:49 [From Bactrim] trimethoprim [From Bactrim] AdvReac Intermediate Nausea Verified 02/20/19 15:49 Home Medications: Home Medications Torsemide 1 dose PO DAILY 05/09/19 [History Confirmed 05/09/19] PMH/Surg Hx/FS Hx/Imm Hx Endocrine/Hematology History: Reports: Hx Anticoagulant Therapy, Hx Diabetes - Tr WITH INSULIN Denies: Hx Thyroid Disease Comment Only: Hx Anemia - PT DOES TAKE COUMADIN DAILY, INSTRUCTED TO TAKE PRE -OP Cardiovascular History: Reports: Hx Angina - PACEMAKER, A-FIB, Hx Congestive Heart Failure - Hx OF, Hx Embolism, Hx Hypercholesterolemia, Hx Hypertension - ON DAILY MEDS, Hx Pacemaker/ICD - put in 2010, new battery 2016, Other Cardiovascular Problems/Disorders - FOLLOWED BY DR PARKER Denies: Hx Coronary Artery Disease, Hx Myocardial Infarction, Hx Valvular Heart Disease Respiratory History: Reports: Hx Pulmonary Embolism - EARLY , Hx Sleep Apnea - DOES NOT USE CPAP, Other Respiratory Problems/Disorders - wegeners granulomatosis Denies: Hx Asthma, Hx Chronic Obstructive Pulmonary Disease (COPD) GI History: Reports: Hx Gall Bladder Disease, Hx Gastroesophageal Reflux Disease - ON DAILY MEDS Musculoskeletal History: Reports: Hx Arthritis - FEET, HANDS, Hx Back Problems, Other Musculoskeletal History - SPINAL STENOSIS Sensory History: Reports: Hx Contacts or Glasses Denies: Hx Cataracts, Hx Hearing Aid, Hx Hearing Problem, Other Sensory Impairments Opthamlomology History: Reports: Hx Contacts or Glasses Denies: Hx Cataracts, Other Sensory Impairments Neurological History: Reports: Hx Nerve Disease, Other Neuro Impairments/ Disorders - neuropathy - hands and feet, spinal stenosis Psychiatric History: Reports: Hx Anxiety - ON DAILY MEDS, Hx Depression - Cancer History Cancer Type, 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 - Surgical History Surgery Procedure, Year, and Place: CHOLECYSTECTOMY, - 1972. SCAR TISSUE REMOVAL - gallbladder - 3 times, most recent ~1998. tubal ligation - 1978. hysterectomy -1994. pacemaker - 2010,. new battery 2017, [facility]. ankle surgery rt foot - [facility] - ~1974. toe amputated - ~2013, outpt [facility] Hx Anesthesia Reactions: No - Immunization History Date of Tetanus Vaccine: 2017 Date of Influenza Vaccine: 07/04/2017 Infectious Disease History: No Infectious Disease History: Reports: Hx Shingles Denies: Hx Clostridium Difficile, Hx Hepatitis, Hx Human Immunodeficiency Virus (HIV), Hx of Known/Suspected MRSA, Hx Tuberculosis, Hx Known/Suspected VRE , Hx Known/Suspected VRSA, History Other Infectious Disease, Traveled Outside the [place] in Last 30 Days - Family History Known Family History: Positive: Diabetes - Social History Alcohol Use: None Hx Substance Use: No Substance Use Type: Reports: None Hx Tobacco Use: No Smoking Status (MU): Never Smoked Tobacco Have You Smoked in the Last Year: No Review of Systems Positive: Skin Diaphoresis. Negative: Fever Positive: Chest Pain Positive: Shortness Of Breath. Negative: Cough Positive: Nausea. Negative: Abdominal Pain, Vomiting, Diarrhea All Other Systems Reviewed And Are Negative: Yes Physical Exam - Summary Physical Exam Summary: General: Well-developed, morbidly obese female. No acute distress. HEENT: Normocephalic, Atraumatic. Eyes: conjuctiva normal, PERRL. Ears: TMs within normal limits. Nares: (-) discharge, (-) erythema. Oropharynx: clear, mucous membranes moist, (-) exudates. Neck: soft, FROM, (-) lymphadenopathy, (-) thyromegaly, (-) JVD. Cardiovascular: normal sinus rhythm, (-) murmur. Respiratory: clear to auscultation bilaterally (-) wheezes, (-) rales, (-) rhonchi. Abdomen: soft, non-tender, non-distended, (-) organomegaly, normal bowel sounds. Neuro: Alert and oriented x3, no focal deficits. Extremities: No edema. There is a 3 cm healing ulcer of the right hawk. Patient has partial toe amputations of right foot. Skin: warm, dry, (-) rash. Psychiatric: mood normal, affect normal. Triage Information Reviewed: Yes Vital Signs On Initial Exam: Initial Vitals Temp Pulse Resp BP Pulse Ox 97.9 F 84 20 99/70 99 05/09/19 17:09 05/09/19 17:09 05/09/19 17:09 05/09/19 17:09 05/09/19 17:09 Vital Signs Reviewed: Yes Diagnostics - Vital Signs Vital Signs Temp Pulse Resp BP Pulse Ox 05/09/19 17:09 97.9 F 84 20 99/70 99 - Laboratory Lab Results: Lab Results 05/09/19 05/09/19 05/09/19 Range/Units 17:17 17:17 17:17 WBC 10.9 H (3.5-10.8) 10^3/uL RBC 5.46 H (3.70-4.87) 10^6 /uL Hgb 15.5 (12.0-16.0) g/dL Hct 46 (35-47) % MCV 84 (80-97) fL MCH 28 (27-31) pg MCHC 34 (31-36) g/dL RDW 15 (10-15) % Plt Count 334 (150-450) 10^3/uL MPV 7.7 (7.4-10.4) fL Neut % (Auto) 64.0 % Lymph % (Auto) 27.2 % Sharp % (Auto) 7.9 % Eos % (Auto) 0.3 % Baso % (Auto) 0.6 % Absolute Neuts (auto) 7.0 (1.5-7.7) 10^3/ul Absolute Lymphs (auto) 3.0 (1.0-4.8) 10^3/ul Absolute Monos (auto) 0.9 H (0-0.8) 10^3/ul Absolute Eos (auto) 0.0 (0-0.6) 10^3/ul Absolute Basos (auto) 0.1 (0-0.2) 10^3/ul Absolute Nucleated RBC 0.0 10^3/ul Nucleated RBC % 0.0 INR (Anticoag Therapy) 3.38 H (0.82-1.09) Sodium 132 L (135-145) mmol/L Potassium 3.7 (3.5-5.0) mmol/L Chloride 90 L (101-111) mmol/L Carbon Dioxide 30 (22-32) mmol/L Anion Gap 12 H (2-11) mmol/L BUN 49 H (6-24) mg/dL Creatinine 1.45 H (0.51-0.95) mg/dL Est GFR ( Amer) 44.0 (>60) Est GFR (Non-Af Amer) 36.4 (>60) BUN/Creatinine Ratio 33.8 H (8-20) Glucose 187 H (70-100) mg/dL Calcium 10.0 (8.6-10.3) mg/dL Total Bilirubin 0.90 (0.2-1.0) mg/dL AST 31 (13-39) U/L ALT 21 (7-52) U/L Alkaline Phosphatase 67 (34-104) U/L Troponin I Pending Total Protein 8.9 (6.4-8.9) g/dL Albumin 4.3 (3.2-5.2) g/dL Globulin 4.6 H (2-4) g/dL Albumin/Globulin Ratio 0.9 L (1-3) Result Diagrams: 05/09/19 17:17 05/09/19 17:17 Lab Statement: Any lab studies that have been ordered have been reviewed, and results considered in the medical decision making process. - Radiology CXR Radiology Interpretation Completed By: ED Physician Summary of Radiographic Findings: Enlarged heart, no change from CXR done on , no pneumonia or pneumothorax, pending official report. - EKG 1708 Cardiac Rate: Other Rate - paced rhythm with rate of 77 BPM Summary of EKG Findings: EKG showed paced rhythm with rate of 77 BPM, no ishcemic changes. Re-Evaluation - Re-Evaluation First Eval Re-Evaluation Time: 18:40 Comment: Patient informed of decision to admit for further workup. Disposition - Course Course Of Treatment: Patient is a 64 y/o F presenting to ED with complaints of left anterior chest heaviness and SOB that have been present for the past couple of weeks. She has a pacemaker. Patient states that she had a recent cardioechogram. She states that she was informed that she had a "leaky valve" and had recent medication changes as a result. She states that Sx are worse with exertion. Fever, cough, abdominal pain, vomiting, and diarrhea are denied. No radiation of pain is reported. She notes occasional diaphoresis and endorses nausea. Heart and lungs exam is unremarkable. Bloodwork was obtained. Trop was negative, BNP 90. Abnormal values include WBC 10.9, RBC 5.46, absolute monos 0.9 , INR 3.38, sodium 132, chloride 90, anion gap 12, BUN 49, creatinine 1.45, BUN/ creatinine ratio 33.8, glucose 187, lactic acid 2.5, globulin 4.6, albumin/ globulin ratio 0.9. CXR showed enlarged heart, no change from CXR done at [facility] on 05/08/19, no pneumonia or pneumothorax. EKG showed paced rhythm with rate of 77 BPM, no ishcemic changes. Patient's case was discussed with Dr. Nguyen, Dr. Nguyen accepts for admission. Patient is agreeable with admission. - Diagnoses Provider Diagnoses: Acute kidney injury - Physician Notifications Discussed Care Of Patient With: Lewis Nguyen Time Discussed With Above Provider: 18:34 Instructed by Provider To: Other - Patient's case was discussed with Dr. Nguyen, Dr. Nguyen accepts the patient for admission. Discharge ED - Sign-Out/Discharge Documenting (check all that apply): Patient Departure - admit Patient Received Moderate/Deep Sedation with Procedure: No - Discharge Plan Condition: Fair Disposition: ADMITTED TO [facility] Referrals: Long Calderón MD [Primary Care Provider] - - Attestation Statements Document Initiated by Scribe: Yes Documenting Scribe: ELIER PINEDA Provider For Whom Libby is Documenting (Include Credential): ARIEL COVARRUBIAS MD Scribe Attestation: ELIER Durham, scribed for ARIEL COVARRUBIAS MD on 05/09/19 at 2023. Status of Scribe Document: Ready
[2019-05-09] MEDS ORDERED: Warfarin TAB(*) 4 MG PO SCH (20:00)
[2019-05-09] MEDS ORDERED: NS 0.9% 500 ML* 500 ML IV SCH (21:00)
[2019-05-09] MEDS ORDERED: Dextrose 50% VIAL 50 ml IV PUSH PRN (21:30)
[2019-05-09] MEDS: busPIRone TAB* 10 MG PO SCH (22:54)
[2019-05-09] MEDS: Pantoprazole TAB * 40 MG TAB PO SCH (22:55)
[2019-05-09] MEDS: Gabapentin CAP(*) 300 MG PO SCH (22:55)
[2019-05-09] MEDS ORDERED: Melatonin 3 MG TAB PO PRN (23:28)
--- NOTE | 2019-05-09 23:31 | HP ---
CC: Dr. Calderón; Dr. Alvarado* HISTORY AND PHYSICAL: DATE OF ADMISSION: 05/09/19 PROVIDER: Leah Lui NP PRIMARY CARE PROVIDER: Dr. Calderón. ATTENDING PHYSICIAN WHILE IN THE HOSPITAL: Dr. Laura Castillo* (dictated by Leah Lui NP). CHIEF COMPLAINT: Chest pain, shortness of breath. HISTORY OF PRESENT ILLNESS: Ms. Leon is a 64-year-old female with a past medical history significant for atrial fibrillation, hyperlipidemia, Erickson's granulomatosis, diabetes, obesity, sleep apnea, cardiac pacemaker, mitral valve regurgitation, who presented to the emergency room with complaints of chest pressure/heaviness and shortness of breath x2 weeks that was progressively worsening. The patient describes the pain in her chest as a heaviness and pressure that radiates to her back. She does report that the heaviness and pressure is worse with exertion, it improves with rest, but is there constantly and never totally resolves. The patient reports that she has recently had some med changes and she followed up with Cardiology on Saturday and at that time, she was told that she had "a leaky valve." The patient reports that at that time, her atenolol was decreased from 50 mg to 25 mg p.o. daily. Her lisinopril was stopped, her potassium was stopped, and her furosemide was also stopped and she was started on torsemide 40 mg p.o. daily. Due to the patient's continued shortness of breath and chest pain and heaviness, she presented to the emergency room for further evaluation. While in the emergency room, the patient had a routine lab work drawn. She had an EKG. Her initial troponin was negative. Due to the patient's continued chest pain, heaviness, and shortness of breath, Hospital Medicine was asked to see and evaluate for admission. PAST MEDICAL HISTORY: Significant for: 1. Atrial fibrillation, status post ablation. 2. Atrial flutter, status post ablation. 3. Hyperlipidemia. 4. Erickson's granulomatosis. 5. Diabetes. 6. Obesity. 7. Sleep apnea. 8. Neuropathy. 9. Spinal stenosis. 10. Varicose veins. PAST SURGICAL HISTORY: 1. Cholecystectomy. 2. Hysterectomy. 3. Amputation of the left 4th toe. 4. Pacemaker insertion. 5. Ankle surgery. 6. Right great toe amputation in January of 2019. HOME MEDICATIONS: 1. Torsemide 40 mg p.o. daily. 2. Spironolactone 25 mg 1 tablet p.o. daily. 3. Prednisone 5 mg p.o. daily. 4. Atenolol 1 tablet p.o. daily. 5. Buspirone 15 mg 2 tablets at bedtime. 6. Warfarin 4 mg alternating with 2 mg. 7. Gabapentin 300 mg 1 cap p.o. b.i.d. 8. Humalog 20 to 25 units with meals. 9. Invokana 300 mg 1 tablet p.o. daily. 10. Tylenol 325 mg 1 to 2 tablets every 4 hours as needed for pain. 11. Victoza 18 mg/3 mL, inject 1.2 mg daily. 12. Flonase Allergy Relief 2 puffs to each naris each morning as needed. 13. Omeprazole 20 mg 1 tablet twice daily. ALLERGIES: CODEINE, ALBUTEROL, HYDROCODONE, SULFA, METFORMIN, LYRICA. FAMILY HISTORY: Brother with a history of coronary artery disease from an [place] at the age of 45. Mother with coronary artery disease and diabetes. Father with COPD, due to COPD. SOCIAL HISTORY: The patient denies any alcohol, illicit drugs, or smoking. She has never been a smoker. Surrogate decision maker in the event she is unable to make her own decisions is her daughter. She is a full code. REVIEW OF SYSTEMS: The patient denies any fever, chills, unintended weight loss. She does complain of chest pain, heaviness. This is in the center of her chest, radiates to her back. She does report swelling in her abdomen. Denies any cough, hemoptysis. She does report shortness of breath that is worse with exertion. She does report some nausea and denies any vomiting. She does deny diarrhea or abdominal pain. Denies any hematuria, dysuria, focal weakness, or sensory loss. Denies any visual complaints, dysphagia, arthralgias, or myalgias. She does complain of a scabbed area to her right hawk and a scabbed area to her right toe. Denies any psychosis or anxiety. PHYSICAL EXAMINATION GENERAL: At this time, Ms. Leon is a 64-year-old female, she is alert and oriented, resting on the stretcher in the emergency room, she is in no acute distress. VITAL SIGNS: Blood pressure is 101/64, heart rate is 60, respirations are 15, O2 saturation 95% on room air, temperature was 97.9. HEENT: Head is atraumatic, normocephalic. Eyes: EOMs are intact. Sclerae anicteric and not pale. Oral mucosa appeared to be moist. NECK: Supple. She has no JVD. LUNGS: Clear to auscultation bilaterally. No wheezes, rales, or rhonchi. CARDIAC: S1, S2. Regular rate and rhythm. No rubs or gallops. ABDOMEN: Obese, soft, nontender. Bowel sounds are present x4. MUSCULOSKELETAL: She is able to move all 4 extremities. There is no clubbing or cyanosis. She has no peripheral edema. NEUROLOGIC: She is awake, alert, and oriented x3. Speech is clear. Thought process is intact. There are no gross focal deficits. SKIN: She does have a scabbed lesion noted to her right hawk and right great toe without surrounding erythema. DIAGNOSTIC STUDIES/LAB DATA: WBCs are 10.9, RBCs 5.46, hemoglobin 15.5, hematocrit is 46, platelet count is 334. INR is 3.38. Sodium 132, potassium 3.7, chloride 90, carbon dioxide is 30, anion gap of 12, BUN is 49, creatinine 1.45, glucose is 187, lactic acid 2.5, calcium is 10.0. ASTs are 31, ALTs are 21, alkaline phosphatase 67. Troponin is 0.00, repeat was 0.01. BNP was 90. Chest x-ray: Radiologist's impression is pending, appears to be no acute cardiac process is evident. She had an electrocardiogram, which showed paced rhythm at a rate of 77. ASSESSMENT AND PLAN: Ms. Leon is a 64-year-old female with past medical history significant for atrial fibrillation, hyperlipidemia, Erickson's granulomatosis, diabetes, obesity, sleep apnea, neuropathy, spinal stenosis, who presented to the emergency room with complaints of chest pain and shortness of breath. She will be admitted inpatient for: 1. Shortness of breath. At this time, the patient does not look to be in acute congestive heart failure. The patient did have a recent echocardiogram with Cardiology, which showed an ejection fraction of 55% to 60%. It did show worsening mitral valve regurgitation that went from [id number] grade 2 regurgitation. The patient is scheduled to have a transesophageal echocardiogram as an outpatient with Dr. Alvarado on of this coming week. At this time, I am going to decrease her torsemide to 20 mg p.o. daily. I am going to give her a trial of 500 cc of normal saline as the patient does appear to be dry. I suspect that the mitral valve regurgitation could be contributing to her progressively worsening exertional shortness of breath that is worse with exertion, but within the differential is coronary artery disease. We will repeat a CBC and BMP in the a.m. I will continue to trend her troponins. Will need to discuss with cardiology further recommendation. 2. Chest pain. The patient does complain of chest pressure that radiates to her back. Her initial 2 troponins have been negative. She does have an EKG that shows a paced rhythm. We will continue to monitor EKG, monitor on telemetry. I will get a third troponin. The patient is currently on a beta johnson. We will continue her atenolol. We will trend her troponins, monitor on telemetry. I would recommend consultation to Cardiology as the patient is scheduled for an outpatient transesophageal echocardiogram on , and is having chest pain. May be appropriate to get a stress test to rule out CAD as a cause of her shortness or breath and chest pain. Patients last stress test was in 2017 which at that time was low risk. 3. History of atrial fibrillation. The patient will continue on atenolol and warfarin. Her INR is supratherapeutic at this time. I will hold her Coumadin this evening and resume tomorrow at 2 mg. She will need between 2 mg and 4 mg daily. 4. Diabetes type II. The patient will be placed on fingersticks a.c. and h.s. She will continue lispro sliding scale. The patient reports that she takes Invokana, given her history of toe ambulations and Right great toe fracture Invokana is contraindicated givn her history of toe amputations. I will hold Invokana and Victoza at this time. 5. Acid reflux. She will continue on omeprazole b.i.d. 6. Elevated lactic acid. I suspect that her elevated lactic acid could be related to hypoperfusion. Her blood pressure is in the low 100s. The patient does not have an acute source of infection at this time. She is afebrile. She is not tachycardic. She has no cough or congestion. No fever or chills. I suspect that her elevated lactic acid is not related to acute infection. 7. FEN. She can have heart healthy, decaf-okay diet. 8. Code status. She is a full code. 9. DVT prophylaxis. We will continue her on Coumadin. TIME SPENT: Time spent on this admission was approximately 60 minutes, greater than half that time was spent at the bedside reviewing events leading thus far to her hospitalization, performing physical exam, and reviewing my plan of care. I have discussed this with my attending, Dr. Laura Castillo; she is in agreement with my plan. LEAH LUI, JOSHUA [id number]/CPS #: [id number]
[2019-05-10 00:51] LABS: Urine Appearance Clear; Urine Bilirubin Negative (Negative); Urine Blood Negative (Negative); Urine Color Yellow; Urine Glucose 3+(>=500 mg/dL) (Negative); Urine Ketones Negative (Negative); Urine Nitrite Negative (Negative); Urine Protein Negative (Negative); Urine Specific Gravity 1.012 (1.010-1.030); Urine Urobilinogen Negative (Negative)
[2019-05-10 06:21] LABS: ABS Eosinophils 0.1 10^3/ul (0-0.6); ABS Lymphocytes 2.9 10^3/ul (1.0-4.8); ABS Monocytes 0.9 10^3/ul (0-0.8); ABS Neutrophils 3.2 10^3/ul (1.5-7.7); Eosinophil % 1.3 %; Hematocrit 42 % (35-47); Lymphocyte % 40.9 %; Mean Corpuscular HGB Conc 34 g/dL (31-36); Mean Corpuscular Hemoglobin 28 pg (27-31); Mean Corpuscular Volume 83 fL (80-97); Mean Platelet Volume 7.7 fL (7.4-10.4); Nucleated Red Blood Cells % 0.2; Platelet Count 264 10^3/uL (150-450); Red Blood Count 4.99 10^6 /uL (3.70-4.87); Red Cell Distribution Width 15 % (10-15)
[2019-05-10 06:32] LABS: INR 3.11 (0.82-1.09)
[2019-05-10 06:39] LABS: BUN/Creatinine Ratio 39.2 (8-20); Calcium 9.5 mg/dL (8.6-10.3); EGFR African American 54.7 (>60); EGFR Non-African American 45.2 (>60); HDL Cholesterol 51.1 mg/dL
[2019-05-10] MEDS: Gabapentin CAP(*) 300 MG PO SCH ×2 (09:22→20:55)
[2019-05-10] MEDS: Atenolol TAB* 25 MG PO SCH (09:23)
[2019-05-10] MEDS: Torsemide TAB 10 MG PO SCH (09:23)
[2019-05-10] MEDS: Pantoprazole TAB * 40 MG TAB PO SCH ×2 (09:23→20:54)
[2019-05-10] MEDS: predniSONE TAB* 5 MG PO SCH (09:23)
[2019-05-10] MEDS: Insulin LISPRO* 1 UNITS UNIT SUBCUT SCH ×4 (09:24→20:55)
--- NOTE | 2019-05-10 11:28 | PN ---
Subjective Date of Service: 05/10/19 Interval History: Pt with SOB, CP/heaviness that has been constant for approximately 2 weeks. She notes she had "leaky valve" on TTE recently and has f/u scheduled with Hand for G[facility] . Pt notes that CP is worse with walking. She denies cough, fever, abd pain, v/d. She does c/o nausea. She denies changes in urination. Objective Active Medications: Acetaminophen (Tylenol Tab*) 650 mg PO Q4H PRN Atenolol (Tenormin Tab*) 25 mg PO DAILY [facility] Buspirone HCl (Buspar Tab*) 30 mg PO BEDTIME [facility] Dextrose (Dextrose 50% Vial 50 Ml*) 25 ml IV PUSH .FOR FS < 60 - SS PRN Gabapentin (Neurontin Cap(*)) 300 mg PO BID [facility] Insulin Human Lispro (Humalog*) 0 units SUBCUT ACHS [facility]; Protocol Melatonin (Melatonin) 3 mg PO BEDTIME PRN Pantoprazole Sodium (Protonix Tab*) 40 mg PO BID [facility] Prednisone (Deltasone Tab*) 5 mg PO QAM [facility] Torsemide (Torsemide) 20 mg PO DAILY [facility] Warfarin Sodium (Coumadin Tab(*)) 2 mg PO EVERY OTHER DAY@2100 [facility]; Protocol Warfarin Sodium (Coumadin Tab(*)) 4 mg PO EVERY OTHER DAY@2100 [facility]; Protocol Vital Signs: Temp Pulse Resp BP Pulse Ox 97.3 F 60 14 118/70 98 05/10/19 07:31 05/10/19 07:31 05/10/19 09:22 05/10/19 07:31 05/10/19 07:31 Oxygen Devices in Use Now: None Appearance: Pt is sitting up in bed with HOB elevated. She appears tired, but no acute distress. She is cooperative and appropriate. Eyes: No Scleral Icterus, PERRLA Ears/Nose/Mouth/Throat: NL Teeth, Lips, Gums, Clear Oropharnyx, - - Mildly dry oral mucosa Neck: NL Appearance and Movements; NL JVP, Trachea Midline Respiratory: Symmetrical Chest Expansion and Respiratory Effort, Clear to Auscultation Cardiovascular: NL Sounds; No Murmurs; No JVD, RRR, No Edema Abdominal: NL Sounds; No Tenderness; No Distention, No Hepatosplenomegaly Extremities: No Edema, No Clubbing, Cyanosis, - - L 4th digit amputation; R great toe partial amputation Skin: - - R hawk wound that is healing, without discharge, surrounding erythema Neurological: Alert and Oriented x 3 Result Diagrams: 05/10/19 06:12 05/10/19 06:12 Additional Lab and Data: Lab Results 05/09/19 05/09/19 05/09/19 Range/Units 17:17 17:17 17:17 WBC 10.9 H (3.5-10.8) 10^3/uL RBC 5.46 H (3.70-4.87) 10^6 /uL Hgb 15.5 (12.0-16.0) g/dL Hct 46 (35-47) % MCV 84 (80-97) fL MCH 28 (27-31) pg MCHC 34 (31-36) g/dL RDW 15 (10-15) % Plt Count 334 (150-450) 10^3/uL MPV 7.7 (7.4-10.4) fL Neut % (Auto) 64.0 % Lymph % (Auto) 27.2 % [place] % (Auto) 7.9 % Eos % (Auto) 0.3 % Baso % (Auto) 0.6 % Absolute Neuts (auto) 7.0 (1.5-7.7) 10^3/ul Absolute Lymphs (auto) 3.0 (1.0-4.8) 10^3/ul Absolute Monos (auto) 0.9 H (0-0.8) 10^3/ul Absolute Eos (auto) 0.0 (0-0.6) 10^3/ul Absolute Basos (auto) 0.1 (0-0.2) 10^3/ul Absolute Nucleated RBC 0.0 10^3/ul Nucleated RBC % 0.0 INR (Anticoag Therapy) 3.38 H (0.82-1.09) Sodium 132 L (135-145) mmol/L Potassium 3.7 (3.5-5.0) mmol/L Chloride 90 L (101-111) mmol/L Carbon Dioxide 30 (22-32) mmol/L Anion Gap 12 H (2-11) mmol/L BUN 49 H (6-24) mg/dL Creatinine 1.45 H (0.51-0.95) mg/dL Est GFR ( Amer) 44.0 (>60) Est GFR (Non-Af Amer) 36.4 (>60) BUN/Creatinine Ratio 33.8 H (8-20) Glucose 187 H (70-100) mg/dL Calcium 10.0 (8.6-10.3) mg/dL Total Bilirubin 0.90 (0.2-1.0) mg/dL AST 31 (13-39) U/L ALT 21 (7-52) U/L Alkaline Phosphatase 67 (34-104) U/L Troponin I Pending Total Protein 8.9 (6.4-8.9) g/dL Albumin 4.3 (3.2-5.2) g/dL Globulin 4.6 H (2-4) g/dL Albumin/Globulin Ratio 0.9 L (1-3) Assess/Plan/Problems-Billing Assessment: 64 yof PMHx A fib/flutter s/p ablation, HLD, Erickson's, DM, obesity, worsening MV regurge presents with CP, SOB, fatigue. - Patient Problems (1) Chest pain Comment: -Continues to have CP, SOB, fatigue -No s/s fluid overload, BNP WNL -EKG without ST changes; Trop negative x3 -TTE shows moderate MV regurge; pt is scheduled for GARETH -Cardiology consulted and recommends stress test; orderd for Saturday (2) Lactic acidosis Comment: -Increased initially, but improving with IV fluids; suspect this is due to hypoperfusion -Limiting IVF out of concern for fluid overload in setting of diastolic HF -No cough, fever, abd pain, n/v/d, changes in urination; low suspicion for infection -No current medications that lead to risk of lactic acidosis (3) NATASHA (acute kidney injury) Comment: -Improving with light IVF -Suspect this is d/t hypovolemia (4) Diabetes mellitus Comment: -Holding invokana; should consider alternative rx d/t h/o toe amputations -Holding victoza while inpatient -FS ACHS with lispro ss coverage (5) Afib Comment: - Continue Atenolol - Hold warfarin x1 dose, d/t supratherapeutic INR - Recheck INR in a.m. (6) GERD (gastroesophageal reflux disease) Comment: -Pantoprazole (7) Wegeners granulomatosis Comment: - Continue prednisone (8) DVT prophylaxis Comment: - Warfarin (9) Full code status Status and Disposition: Observation. Discharge when stable.
[2019-05-10] MEDS: Acetaminophen TAB* 325 MG PO PRN ×2 (11:53→23:36)
--- NOTE | 2019-05-10 13:27 | CONS ---
CC: Dr. Long Calderón; Dr. Gin Alvarado CARDIOLOGY CONSULTATION: DATE OF CONSULT: 05/10/19 INDICATION FOR CONSULTATION: Shortness of breath. HISTORY OF PRESENT ILLNESS: The patient is a 64-year-old female with a history of sick sinus syndrom e, history of atrial fibrillation, history of pacemaker implantation who [facility] pain and shortness of breath. The patient has been seen recently by Dr. Alvarado for the s will complaints. An echocardiogram done at our office demonstrated normal LV size and systolic functio n. She had moderate mitral regurgitation and moderate tricuspid regurgitation with moderate pulmonar y hypertension. This was different from her echocardiogram in 2017, which showed only mild mitral re gurgitation. The patient states that she was at home yesterday and just felt short of breath with an y kind of activity. She denied any palpitations. She denied any lightheadedness, dizziness, or sync ope. She did have some degree of chest pain. She was very vague on its presentation, she just sort of felt it in her chest, she was unable to quantify how much discomfort it was causing her, she was u nable to tell how long it was lasting. The patient was admitted to the hospital and laboratory studi es ruled out myocardial infarction. Her EKG demonstrates normal sinus rhythm, ventricularly paced, d ifficult to interpret as far as ischemia. PAST MEDICAL HISTORY: Significant for diabetes, shortness of breath, pacemaker, paroxysmal atrial fi brillation, chronic pain syndrome. PAST SURGICAL HISTORY: Cholecystectomy in 1974, hysterectomy in 1994, pacemaker implantation. OUTPATIENT MEDICATIONS: 1. Prednisone as directed. 2. Lisinopril 5 mg a day. 3. Lasix 40 mg a day. 4. Atenolol 25 mg a day. 5. Buspirone 30 mg a day. 6. Coumadin as directed. 7. Potassium 20 mEq a day. 8. Gabapentin 300 mg b.i.d. 9. Insulin as directed. 10. Victoza 18 mg a day. 11. Invokana 300 mg a day. 12. Flonase inhaler. 13. Omeprazole 20 mg a day. ALLERGIES: She is intolerant of CODEINE, ALBUTEROL, HYDROCODONE, SULFA MEDICATIONS, and METFORMIN. FAMILY HISTORY: She had a brother who at 45 years old of a myocardial infarction. Mother had a history of coronary artery disease. Father had history of COPD. SOCIAL HISTORY: She denies tobacco or alcohol use. She is retired. She tries to exercise regularly in her chair. REVIEW OF SYSTEMS: Negative for fevers and chills. Negative for changes in bowel or bladder habits. Negative for changes in weight. PHYSICAL EXAM: Height is 5 feet 7 inches, weight 218 pounds, temperature 96.9, heart rate is 63, blo od pressure 108/62, respiratory rate is 20, oxygen saturation 99% on room air. Sclerae anicteric. O ropharynx is pink without erythema. Carotids are 2+ without bruits. JVD is normal. Thyroid is claritza l. Cardiac Exam: S1, S2 without any murmurs, rubs, or gallops. PMI is normal. Lungs are clear to a uscultation bilaterally. There is no dullness to percussion. Abdomen is soft, nontender, nondistend ed with normoactive bowel sounds. Extremities show no edema. She has 2+ pulses throughout. The joselito ent is awake, alert, and oriented. She moves all 4 extremities equally. DIAGNOSTIC STUDIES/LAB DATA: Chemistries within normal limits. BUN 47, creatinine 1.2. AST and ALT are normal. Total cholesterol 211, LDL cholesterol 110, HDL cholesterol of 51. CBC within normal l imits. IMPRESSION AND PLAN: This is a 64-year-old female who is admitted to the hospital with shortness of breath. The patient has been experiencing increasing shortness of breath for a while. She did see Radha Alvarado recently and echocardiogram showed that her LV systolic function had remained the same, bu t her mitral regurgitation had been getting worse. The patient was scheduled for a transesophageal e chocardiogram later this week. For now, my recommendation is the patient undergo chemical nuclear stress test. The patient did have a stress test here at [facility] in 2017 which demonstrated normal perfusion. I think it is reasonable to rule out coronary artery disease as a cause for her shortness of breath. If her str ess test is normal, I think the patient can be discharged home and follow up with Dr. Alvarado later i n the week for her transesophageal echocardiogram. At this point, I do not think any medication granados ges are necessary. [id number]/[facility] #: [id number]
[2019-05-10 13:49] LABS: Magnesium 2.4 mg/dL (1.9-2.7)
[2019-05-10] MEDS ORDERED: NS 0.9% 500 ML* 500 ML IV ONE (13:52)
[2019-05-10] MEDS ORDERED: Warfarin TAB(*) 2 MG PO SCH ×2 (20:00→21:00)
[2019-05-10] MEDS: busPIRone TAB* 10 MG PO SCH (20:54)
[2019-05-11 06:34] LABS: INR 3.04 (0.82-1.09)
[2019-05-11 06:39] LABS: BUN/Creatinine Ratio 38.4 (8-20); Calcium 9.5 mg/dL (8.6-10.3); EGFR African American 52.2 (>60); EGFR Non-African American 43.1 (>60); Potassium 4.2 mmol/L (3.5-5.0)
[2019-05-11] MEDS: Torsemide TAB 10 MG PO SCH (09:03)
[2019-05-11] MEDS: Gabapentin CAP(*) 300 MG PO SCH ×2 (09:03→21:38)
[2019-05-11] MEDS: predniSONE TAB* 5 MG PO SCH (09:04)
[2019-05-11] MEDS: Atenolol TAB* 25 MG PO SCH (09:05)
[2019-05-11] MEDS: Insulin LISPRO* 1 UNITS UNIT SUBCUT SCH ×4 (09:05→21:45)
[2019-05-11] MEDS: Pantoprazole TAB * 40 MG TAB PO SCH ×2 (09:05→21:39)
[2019-05-11] MEDS: Acetaminophen TAB* 325 MG PO PRN ×3 (09:08→23:48)
[2019-05-11] MEDS ORDERED: Docusate CAP* 100 MG PO PRN (15:44)
--- NOTE | 2019-05-11 16:49 | PN ---
Subjective Date of Service: 05/11/19 Interval History: Patient seen and examined. BP slightly low today. No chest pain, SOB with any minimal exertion. No diaphoresis, no n/v. No further complaints. Concerned about her pending workup and stress test tomorrow which we discussed at length. Objective Active Medications: Acetaminophen (Tylenol Tab*) 650 mg PO Q4H PRN PRN Reason: MILD PAIN or TEMP > 100.4 Last Admin: 05/11/19 16:09 Dose: 650 mg Atenolol (Tenormin Tab*) 25 mg PO DAILY [facility] Last Admin: 05/11/19 09:05 Dose: 25 mg Buspirone HCl (Buspar Tab*) 30 mg PO BEDTIME [facility] Last Admin: 05/10/19 20:54 Dose: 30 mg Dextrose (Dextrose 50% Vial 50 Ml*) 25 ml IV PUSH .FOR FS < 60 - SS PRN PRN Reason: FS < 60 Docusate Sodium (Colace Cap*) 100 mg PO BID PRN PRN Reason: CONSTIPATION Last Admin: 05/11/19 16:09 Dose: 100 mg Gabapentin (Neurontin Cap(*)) 300 mg PO BID [facility] Last Admin: 05/11/19 09:03 Dose: 300 mg Insulin Glargine (Lantus(*)) 18 units SUBCUT Q24H [facility] Insulin Human Lispro (Humalog*) 0 units SUBCUT ACHS [facility]; Protocol Last Admin: 05/11/19 13:21 Dose: 12 units Melatonin (Melatonin) 3 mg PO BEDTIME PRN PRN Reason: SLEEP Last Admin: 05/10/19 23:36 Dose: 3 mg Pantoprazole Sodium (Protonix Tab*) 40 mg PO BID [facility] Last Admin: 05/11/19 09:05 Dose: 40 mg Prednisone (Deltasone Tab*) 5 mg PO QAM [facility] Last Admin: 05/11/19 09:04 Dose: 5 mg Torsemide (Torsemide) 20 mg PO DAILY [facility] Last Admin: 05/11/19 09:03 Dose: 20 mg Warfarin Sodium (Coumadin Tab(*)) 4 mg PO EVERY OTHER DAY@2100 [facility]; Protocol Warfarin Sodium (Coumadin Tab(*)) 2 mg PO EVERY OTHER DAY@2100 [facility]; Protocol Vital Signs - 8 hr 09/02/19 09/02/19 09/02/19 09:03 10:45 15:25 Temperature 97.5 F 98.6 F Pulse Rate 66 75 Respiratory 18 20 16 Rate Blood Pressure 100/60 123/69 (mmHg) O2 Sat by Pulse 100 97 Oximetry Oxygen Devices in Use Now: None Appearance: alert, NAD Eyes: No Scleral Icterus, PERRLA Ears/Nose/Mouth/Throat: NL Teeth, Lips, Gums, Mucous Membranes Moist Neck: NL Appearance and Movements; NL JVP, Trachea Midline Respiratory: Symmetrical Chest Expansion and Respiratory Effort, Clear to Auscultation Cardiovascular: NL Sounds; No Murmurs; No JVD, RRR, No Edema Abdominal: NL Sounds; No Tenderness; No Distention Extremities: No Edema, No Clubbing, Cyanosis Skin: No Rash or Ulcers Neurological: Alert and Oriented x 3, NL Gait Nutrition: Taking PO's Result Diagrams: 05/10/19 06:12 05/11/19 05:53 Additional Lab and Data: Lab Results 05/09/19 05/09/19 05/09/19 Range/Units 17:17 17:17 17:17 WBC 10.9 H (3.5-10.8) 10^3/uL RBC 5.46 H (3.70-4.87) 10^6 /uL Hgb 15.5 (12.0-16.0) g/dL Hct 46 (35-47) % MCV 84 (80-97) fL MCH 28 (27-31) pg MCHC 34 (31-36) g/dL RDW 15 (10-15) % Plt Count 334 (150-450) 10^3/uL MPV 7.7 (7.4-10.4) fL Neut % (Auto) 64.0 % Lymph % (Auto) 27.2 % Ross % (Auto) 7.9 % Eos % (Auto) 0.3 % Baso % (Auto) 0.6 % Absolute Neuts (auto) 7.0 (1.5-7.7) 10^3/ul Absolute Lymphs (auto) 3.0 (1.0-4.8) 10^3/ul Absolute Monos (auto) 0.9 H (0-0.8) 10^3/ul Absolute Eos (auto) 0.0 (0-0.6) 10^3/ul Absolute Basos (auto) 0.1 (0-0.2) 10^3/ul Absolute Nucleated RBC 0.0 10^3/ul Nucleated RBC % 0.0 INR (Anticoag Therapy) 3.38 H (0.82-1.09) Sodium 132 L (135-145) mmol/L Potassium 3.7 (3.5-5.0) mmol/L Chloride 90 L (101-111) mmol/L Carbon Dioxide 30 (22-32) mmol/L Anion Gap 12 H (2-11) mmol/L BUN 49 H (6-24) mg/dL Creatinine 1.45 H (0.51-0.95) mg/dL Est GFR ( Amer) 44.0 (>60) Est GFR (Non-Af Amer) 36.4 (>60) BUN/Creatinine Ratio 33.8 H (8-20) Glucose 187 H (70-100) mg/dL Calcium 10.0 (8.6-10.3) mg/dL Total Bilirubin 0.90 (0.2-1.0) mg/dL AST 31 (13-39) U/L ALT 21 (7-52) U/L Alkaline Phosphatase 67 (34-104) U/L Troponin I Pending Total Protein 8.9 (6.4-8.9) g/dL Albumin 4.3 (3.2-5.2) g/dL Globulin 4.6 H (2-4) g/dL Albumin/Globulin Ratio 0.9 L (1-3) Assess/Plan/Problems-Billing Assessment: 64 yof PMHx A fib/flutter s/p ablation, HLD, Erickson's, DM, obesity, worsening MV regurge presents with CP, SOB, fatigue. - Patient Problems (1) Chest pain Code(s): R07.9 - CHEST PAIN, UNSPECIFIED SNOMED Code(s): 81929019 Comment: - Continues to have SOB and fatigue - No s/s fluid overload, BNP WNL - EKG without ST changes; Trop negative x3 - TTE shows moderate MV regurge; pt is scheduled for GARETH - Cardiology consulted and recommends stress test which is scheduled for tomorrow AM - NPO after midnight (2) Ulcer of right lower extremity Code(s): L97.919 - NON-PRS CHRONIC ULC UNSP PRT OF R LOW LEG W UNSP SEVERITY SNOMED Code(s): 23183146 Comment: - Noted on right hawk, does not appear infected but is open and chronic - Being managed as outpatient by Dr. Condon - Will consult wound care NOVELTY DIPPER (3) Afib Code(s): I48.91 - UNSPECIFIED ATRIAL FIBRILLATION SNOMED Code(s): 77693173 Comment: - Continue Atenolol - Hold warfarin, INR remains slightly supratherapeutic today - Recheck INR in a.m. (4) History of pulmonary embolism Code(s): Z86.711 - PERSONAL HISTORY OF PULMONARY EMBOLISM SNOMED Code(s): 121877345 Comment: -On warfarin (5) DVT prophylaxis Code(s): QNY0455 - SNOMED Code(s): 630236417 Comment: - Warfarin (6) Full code status Code(s): Z78.9 - OTHER SPECIFIED HEALTH STATUS SNOMED Code(s): 124864265 Status and Disposition: Observation. Discharge when stable.
[2019-05-11] MEDS ORDERED: Insulin LISPRO* 1 UNITS UNIT SUBCUT ONE (16:56)
[2019-05-11] MEDS: Insulin GLARGINE(*) 1 UNITS UNIT SUBCUT SCH (17:25)
[2019-05-11] MEDS: busPIRone TAB* 10 MG PO SCH (21:37)
[2019-05-12] MEDS: Acetaminophen TAB* 325 MG PO PRN ×2 (05:45→14:38)
[2019-05-12] MEDS ORDERED: Dextrose 50% VIAL 50 ml IV PUSH PRN (05:59)
[2019-05-12] MEDS ORDERED: Insulin LISPRO* 1 UNITS UNIT SUBCUT ONE (05:59)
[2019-05-12 06:43] LABS: INR 2.49 (0.82-1.09)
[2019-05-12] MEDS: Gabapentin CAP(*) 300 MG PO SCH (08:30)
[2019-05-12] MEDS: Torsemide TAB 10 MG PO SCH (08:30)
[2019-05-12] MEDS: predniSONE TAB* 5 MG PO SCH (08:30)
[2019-05-12] MEDS: Pantoprazole TAB * 40 MG TAB PO SCH (08:30)
[2019-05-12] MEDS: Atenolol TAB* 25 MG PO SCH (08:30)
[2019-05-12] MEDS: Insulin LISPRO* 1 UNITS UNIT SUBCUT SCH ×3 (08:32→15:53)
[2019-05-12 09:24] VITALS: BP 106/62
[2019-05-12] MEDS ORDERED: Regadenoson* 0.4 MG/5 ML SYRINGE ONE (12:04)
[2019-05-12] MEDS ORDERED: Aminophylline IV* 25 MG/ML 10 ML VIAL ONE (12:04)
--- NOTE | 2019-05-12 15:34 | CONSULT ---
Subjective Date of Service: 05/12/19 Interval History: Ms. Leon is a 64 yo female with PMH significant for A fib/A flutter s/p ablation , HLD, kenzie's granulomatosis, DM2, obesity, sleep apnea, neuropathy, and spinal stenosis; who presented to the emergency room with complaints of chest pain and shortness of breath. Ms. Leon reports that she has had a wound to her right hawk for several months after hitting it while getting into a vehicle. She has been following with Dr. Lyons who has recommended that she apply ABX ointment at bedtime, and keep open to air during the day. Patient seen and examined at bedside. Family History: Unchanged from Admission Social History: Unchanged from Admission Past Medical History: Unchanged from Admission Review of Systems - Measurements Intake and Output: Intake and Output Last 24 Hours 05/10/19 05/11/19 05/12/19 05/13/19 06:59 06:59 06:59 06:59 Intake Total 580 1580 1860 240 Output Total 400 1000 3700 Balance 180 580 -1840 240 Weight 218 lb 3.2 oz 216 lb 6.4 oz 216 lb 6.4 oz Intake: IV Fluids 480 500 Oral 100 1080 1860 240 Output: Urine 400 1000 3700 Other: Estimated Void Small # Voids 1 - Review of Systems Constitutional Symptoms: Negative: Fever, Other - Chills Dermatology: Positive: Other - Chronic wound to right hawk Endocrinology: Positive: Obesity, Diabetes Mellitus Objective Active Medications: Acetaminophen (Tylenol Tab*) 650 mg PO Q4H PRN Reason: MILD PAIN or TEMP > 100.4 Atenolol (Tenormin Tab*) 25 mg PO DAILY [facility] Buspirone HCl (Buspar Tab*) 30 mg PO BEDTIME [facility] Dextrose (Dextrose 50% Vial 50 Ml*) 25 ml IV PUSH .FOR FS < 60 - SS PRN Reason : FS < 60 Docusate Sodium (Colace Cap*) 100 mg PO BID PRN Reason: CONSTIPATION Gabapentin (Neurontin Cap(*)) 300 mg PO BID [facility] Insulin Glargine (Lantus(*)) 18 units SUBCUT Q24H [facility] Insulin Human Lispro (Humalog*) 0 units SUBCUT ACHS [facility]; Protocol Melatonin (Melatonin) 3 mg PO BEDTIME PRN Reason: SLEEP Pantoprazole Sodium (Protonix Tab*) 40 mg PO BID [facility] Prednisone (Deltasone Tab*) 5 mg PO QAM [facility] Torsemide (Torsemide) 20 mg PO DAILY [facility] Warfarin Sodium (Coumadin Tab(*)) 4 mg PO EVERY OTHER DAY@2100 [facility]; Protocol Warfarin Sodium (Coumadin Tab(*)) 2 mg PO EVERY OTHER DAY@2100 [facility]; Protocol Vital Signs - 8 hr 05/12/19 05/12/19 08:25 08:30 Temperature 97.9 F Pulse Rate 59 Respiratory 19 18 Rate Blood Pressure 106/62 (mmHg) O2 Sat by Pulse 98 Oximetry Oxygen Devices in Use Now: None Appearance: NAD, sitting up in bed Ears/Nose/Mouth/Throat: Mucous Membranes Moist Respiratory: Symmetrical Chest Expansion and Respiratory Effort Extremities: - - 2+ DP on the right Skin: - - See skin note below Neurological: Alert and Oriented x 3 Nutrition: Taking PO's Result Diagrams: 05/10/19 06:12 05/11/19 05:53 Diagnostic Imaging: Exam Date: 12/26/18 - VL ANK/BRACHIAL INDICES REPORT: Ankle-brachial indices: Right: Value (SBP) Index Brachial: 106 Posterior tibialis: Noncompressible Dorsalis pedis: Noncompressible Digit: 151 1.42 Left: Value (SBP) Index Brachial: 96 Posterior tibialis: Noncompressible Dorsalis pedis: Noncompressible Digit: 227 2.14 Doppler waveforms (acquired at rest): In the interrogated lower extremity arteries, Doppler waveforms are triphasic in all distributions. Volume pulse recordings (acquired at rest): Volume pulse recordings, measured at the bilateral ankles, are symmetric. IMPRESSION: Sonographic findings are most indicative of advanced calcified atherosclerosis preventing compression of the lower extremity arteries and therefore reliable acquisition of SASHA values. If the patient is potentially experiencing pain or wound exacerbation due to arterial insufficiency, superior characterization of the arteries can be made with catheter arteriography. Skin Deviation Note - Skin Deviation Findings Right anterior hawk - The wound measures 3 cm x 1.7 cm x 0.1 cm. The wound base is yellow dry eschar. The surrounding skin with mild erythema. There is no drainage. Wound Problem/Plan Assessment: Ms. Leon is a 64 yo female with PMH significant for A fib/A flutter s/p ablation , HLD, kenzie's granulomatosis, DM2, obesity, sleep apnea, neuropathy, and spinal stenosis; who presented to the emergency room with complaints of chest pain and shortness of breath. She presented with a wound to her right hawk. 1. Chronic right skin wound. Wound is secondary to trauma a few months ago. She had ABIs in 12/2018 (see above). Recommend applying ABX ointment, followed by a nonstick dressing daily (may leave open during the day and only cover at night per Pt request). Consider referral to the wound clinic at discharge. 2. DM2. HgA1C 9.9 in 11/2018. Maintain good glycemic control to allow for wound healing. 3. Obesity. BMI 33.9. 4. Diet. Consistent Carbohydrate diet. 5. Code Status. Full Code Status. 6. Disposition. Inpatient, disposition per primary medicine team. Is Patient a Wound Clinic Patient: No Counseling and/or Coordination of Care Minutes: 25 Points of Discussion: TIME SPENT: Time spent for this wound consultation was 25 minutes and 15 minutes was spent with the patient discussing past medical history; assessing, measuring, and photographing the wounds. Attending: Marjorie Mason
[2019-05-12] MEDS: Insulin GLARGINE(*) 1 UNITS UNIT SUBCUT SCH (15:54)
[2019-05-12] MEDS ORDERED: Warfarin TAB(*) 2 MG PO SCH (21:00)
--- NOTE | 2019-05-12 22:50 | DS ---
CC: Jesus Toscano MD; Gin Alvarado MD* DISCHARGE SUMMARY: DATE OF ADMISSION: 05/09/19 DATE OF DISCHARGE: 05/12/19 PROVIDER: JOSÉ Guzman ATTENDING PHYSICIAN WHILE IN THE HOSPITAL: Walter Degroot MD* (dictated by JOSÉ Guzman). CONSULTING ADMINISTRATIVE SERVICES SPECIALIST INPATIENT: Jesus Toscano MD OUTPATIENT ADMINISTRATIVE SERVICES SPECIALIST: Gin Alvarado MD PRIMARY DIAGNOSIS: Chest pain, noncardiac. SECONDARY DIAGNOSES: 1. Atrial fibrillation, status post ablation, status post pacemaker placement. 2. Atrial flutter, status post ablation. 3. Hyperlipidemia. 4. Erickson's granulomatosis. 5. Diabetes mellitus type 2. 6. Obesity. 7. Sleep apnea. 8. Neuropathy. 9. Spinal stenosis. 10. Varicose veins. 11. Mitral valve regurgitation. STUDIES WHILE IN THE HOSPITAL: Nuclear medicine stress test on 05/12/19 demonstrating small area of reversible hypoperfusion along the inferior wall suggestive of an area of ischemia. Assessment: Low risk. LABORATORY DATA: Pertinent labs: Fasting LDL 110. Troponin 0.00 x3. HISTORY OF PRESENT ILLNESS/HOSPITAL COURSE: Ayanna Leon is a 64-year-old white female with past medical history significant for atrial fibrillation, status post ablation and pacemaker; Erickson's granulomatosis; hyperlipidemia; obesity; spinal stenosis, who presents to the emergency department on 05/09/19 complaining of chest pain and shortness of breath. Please see the admitting history and physical dictated by Leah Lui, nurse practitioner, for further information. The patient has been having ongoing shortness of breath with exertion. She has been having outpatient workup by the cardiology services. She already had an TTE demonstrating worsening mitral valve regurgitation and is scheduled for outpatient GARETH on 05/14/[address] Alvarado's orders. The patient was evaluated by Dr. Toscano in the hospital who recommended a stress test. The patient's EKG was overall without ischemic changes, though she does have a paced rhythm and her troponins were negative. Her stress test demonstrated the findings as above. These findings were discussed with Dr. Toscano on the day of discharge, who believed that the patient was safe for discharge and no need for further intervention at this time. The patient on the day of discharge was asymptomatic. She was still having shortness of breath with exertion, which was unchanged from how she felt leading up to her hospitalization, but is not short of breath at rest and denies fevers, chills, abdominal pain, or shoulder pain. Additionally, the patient had supratherapeutic INR during her hospital stay and her Coumadin was held during hospital stay because of this. PHYSICAL EXAM: General: White female who appears older than stated age, lying upright in hospital bed, appearing comfortable, in no acute distress. Eyes: PERRL. Sclerae anicteric. ENT: Mucous membranes moist. Neck: Supple without JVD. Cardio: Regular rate and rhythm without murmur appreciated. Lungs: Clear to auscultation throughout. Abdomen: Soft, nontender, nondistended. Extremities: No clubbing, cyanosis, or edema. Neuro: The patient is alert and oriented x3. Psych: The patient is pleasant and cooperative. DISCHARGE PLAN: Diet: Carbohydrate consistent diet. Activity: The patient may return to normal activity as tolerated. The patient should follow up with her primary care provider regarding this hospitalization in 1 week. She is advised to call her primary care provider's office tomorrow for this appointment and to have her INR checked. Additionally , the patient is advised to continue recording her blood sugars and additionally recording what she is eating so that primary care provider can assist her in controlling her diabetes. The patient is to follow up with Dr. Alvarado and to present for her previously scheduled GARETH on 05/14/19. The patient is advised to return to the emergency department if she experiences any worsening shortness of breath, chest pain, difficulty breathing, loss of consciousness, racing heart rate. DISCHARGE MEDICATIONS: New medications: None. Continued home medications: 1. Humulin 25 units subcu daily. 2. Invokana 300 mg p.o. daily. 3. Torsemide 20 mg p.o. daily. 4. Atenolol 25 mg p.o. daily. 5. Coumadin 2 mg p.o. every other day. 6. Coumadin 4 mg p.o. every other day. 7. Victoza 1.8 units subcu q.a.m. 8. Omeprazole 20 mg p.o. b.i.d. 9. Gabapentin 300 mg p.o. b.i.d. 10. BuSpar 30 mg p.o. b.i.d. 11. Prednisone 5 mg p.o. daily. CONDITION ON DISCHARGE: Stable. DISPOSITION: Home. TIME SPENT: Approximately 40 minutes was spent on this discharge, approximately half of this time was spent at bedside evaluating the patient and discussing the plan of discharge. JOSÉ GUZMAN [id number]/[facility] #: [id number] EDG[place]
[2019-05-13] MEDS ORDERED: Warfarin TAB(*) 4 MG PO SCH (21:00)
== END 2019-05-12 16:05 | disposition home or self-care (01) | DRG 313 ==
LOC: ED 17:06 → MEDTELE 19:44 → OBSVTOIN 05-11 11:32
PROVIDERS: ADMIT Internal Medicine; ATTEND Internal Medicine
DX: R07.89 Other chest pain (principal); M31.30 Wegener's granulomatosis without renal involvement; N17.9 Acute kidney failure, unspecified; E87.2 Acidosis; I48.92 Unspecified atrial flutter; L97.919 Non-pressure chronic ulcer of unspecified part of right lower leg with unspecified severity; L97.819 Non-pressure chronic ulcer of other part of right lower leg with unspecified severity; E11.40 Type 2 diabetes mellitus with diabetic neuropathy, unspecified; E11.622 Type 2 diabetes mellitus with other skin ulcer; I49.5 Sick sinus syndrome; I27.20 Pulmonary hypertension, unspecified; I08.1 Rheumatic disorders of both mitral and tricuspid valves; G47.30 Sleep apnea, unspecified; I48.91 Unspecified atrial fibrillation; E78.5 Hyperlipidemia, unspecified; M48.00 Spinal stenosis, site unspecified; I83.90 Asymptomatic varicose veins of unspecified lower extremity; E66.9 Obesity, unspecified; R79.1 Abnormal coagulation profile; Z68.33 Body mass index [BMI] 33.0-33.9, adult; Z95.0 Presence of cardiac pacemaker; Z79.01 Long term (current) use of anticoagulants; Z79.1 Long term (current) use of non-steroidal anti-inflammatories (NSAID); Z79.4 Long term (current) use of insulin; Z79.52 Long term (current) use of systemic steroids; Z79.899 Other long term (current) drug therapy; Z88.5 Allergy status to narcotic agent; Z88.2 Allergy status to sulfonamides; Z88.8 Allergy status to other drugs, medicaments and biological substances; Z82.49 Family history of ischemic heart disease and other diseases of the circulatory system; Z83.3 Family history of diabetes mellitus; Z82.5 Family history of asthma and other chronic lower respiratory diseases; Z86.711 Personal history of pulmonary embolism
CPT/HCPCS: 36415; 71046; 78452; 80048; 80053; 80061; 81003; 82947; 83605; 83735; 83880; 84484; 85025; 85610; 93005; 93017; 99283; A9270-GY; A9502; G0378; J0280; J2785; J7512

== ENCOUNTER 2019-06-04 01:17 | Inpatient (IN) | payer MEDICARE, OTHER ==
[2019-06-04] MEDS ORDERED: Ondansetron INJ* 2 MG/ML VIAL IV ONE (01:20)
[2019-06-04] MEDS ORDERED: Aspirin 81 mg CHEW TAB* 81 MG TAB.CHEW PO ONE (01:20)
[2019-06-04] MEDS ORDERED: NS 0.9% 1000 ML** 1,000 ML IV ONE (01:20)
[2019-06-04] MEDS ORDERED: Ticagrelor* 90 MG TAB PO ONE ×2 (01:20→01:24)
[2019-06-04] MEDS ORDERED: Heparin for STEMI(*) 5,000 UNITS/ML 1 ML VIAL IV ONE ×2 (01:20→01:23)
--- NOTE | 2019-06-04 01:21 | ED ---
HPI Chest Pain - HPI Summary HPI Summary: Patient is a 64 y/o F presenting to [facility] via EMS for evaluation of STEMI. EMS reported [address] elevation in leads 2,3 and aVF. EMS arrived 0117, , provider in room to evaluate immediately upon arrival. STEMI code called at 0117. Patient denies Hx of CO. Patient reports chest pain onset 06/03/19 at around 2100 while she was at rest. She states that she had a stress test that was done within the past month. Results were reported to have been unconcerning. EMS administered 3 tabs of nitro, last BP done by EMS just before entering [facility] was 118/66. EMS states they did not administer ASA. She has Hx of Afib, status post ablation and pacemaker, HLD. Patient is on Warfarin. Pain is characterized as intermittent, sharp, and is noted to radiate to left arm and neck. She endorses N/V, SOB but denies diaphoresis. Pain was initially 10/ 10 but she currently rates pain 8/10 after nitro. Home medications and allergies are reviewed. - History of Current Complaint Hx Obtained From: Patient Onset/Duration: Started Hours Ago, Still Present Timing: Intermittent, Lasting Hours Initial Severity: Severe Current Severity: Severe Pain Intensity: 8 Pain Scale Used: 0-10 Numeric Chest Pain Radiates: Yes Chest Pain Radiates To:: Arm - left, Neck - left Character: Sharp/Stabbing Alleviating Factor(s): NTG 123 Associated Signs and Symptoms: Positive: Chest Pain, Shortness of Breath, Nausea , Vomiting. Negative: Diaphoresis - Additional Pertinent History Primary Care Physician: [id number] - Allergy/Home Medications Allergies/Adverse Reactions: Allergies Allergy/AdvReac Type Severity Reaction Status Date / Time albuterol Allergy Difficulty Verified 02/20/19 15:49 Swallowing latex Allergy Unknown Verified 02/20/19 15:49 Reaction Details pregabalin [From Lyrica] Allergy Altered Verified 02/20/19 15:49 Mental Status codeine AdvReac Intermediate GI Upset Verified 02/20/19 15:49 hydrocodone AdvReac Intermediate GI Upset Verified 02/20/19 15:49 metformin AdvReac Intermediate Nausea Verified 02/20/19 15:49 Sulfa (Sulfonamide AdvReac Intermediate Nausea Verified 02/20/19 15:49 Antibiotics) sulfamethoxazole AdvReac Intermediate Nausea Verified 02/20/19 15:49 [From Bactrim] trimethoprim [From Bactrim] AdvReac Intermediate Nausea Verified 02/20/19 15:49 PMH/Surg Hx/FS Hx/Imm Hx Endocrine/Hematology History: Reports: Hx Anticoagulant Therapy, Hx Diabetes Denies: Hx Thyroid Disease Comment Only: Hx Anemia - PT DOES TAKE COUMADIN DAILY, INSTRUCTED TO TAKE PRE -OP Cardiovascular History: Reports: Hx Angina - PACEMAKER, A-FIB, Hx Auto Implanted Cardiovert Defib, Hx Congestive Heart Failure - Hx OF, Hx Embolism, Hx Hypercholesterolemia, Hx Hypertension - ON DAILY MEDS, Hx Pacemaker/ICD - put in 2010, new battery 2016, Other Cardiovascular Problems/Disorders - FOLLOWED BY DR PARKER Denies: Hx Coronary Artery Disease, Hx Myocardial Infarction, Hx Valvular Heart Disease Respiratory History: Reports: Hx Pulmonary Embolism - EARLY , Hx Sleep Apnea - DOES NOT USE CPAP, Other Respiratory Problems/Disorders - wegeners granulomatosis Denies: Hx Asthma, Hx Chronic Obstructive Pulmonary Disease (COPD) GI History: Reports: Hx Gall Bladder Disease, Hx Gastroesophageal Reflux Disease - ON DAILY MEDS Musculoskeletal History: Reports: Hx Arthritis - FEET, HANDS, Hx Back Problems, Other Musculoskeletal History - SPINAL STENOSIS Sensory History: Reports: Hx Contacts or Glasses Denies: Hx Cataracts, Hx Hearing Aid, Hx Hearing Problem, Other Sensory Impairments Opthamlomology History: Reports: Hx Contacts or Glasses Denies: Hx Cataracts, Other Sensory Impairments Neurological History: Reports: Hx Nerve Disease, Other Neuro Impairments/ Disorders - neuropathy - hands and feet, spinal stenosis Psychiatric History: Reports: Hx Anxiety - ON DAILY MEDS, Hx Depression - Cancer History Cancer Type, 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 - Surgical History Surgery Procedure, Year, and Place: CHOLECYSTECTOMY, - 1972. SCAR TISSUE REMOVAL - gallbladder - 3 times, most recent ~1998. tubal ligation - 1978. hysterectomy -1994. pacemaker - 2010,. new battery 2016, [facility] [place]. ankle surgery rt foot - [facility] - ~1974. toe amputated - ~2013, outpt [facility] Hx Anesthesia Reactions: No - Immunization History Date of Tetanus Vaccine: 2018 Date of Influenza Vaccine: 07/04/2017 Infectious Disease History: Reports: Hx Shingles Denies: Hx Clostridium Difficile, Hx Hepatitis, Hx Human Immunodeficiency Virus (HIV), Hx of Known/Suspected MRSA, Hx Tuberculosis, Hx Known/Suspected VRE , Hx Known/Suspected VRSA, History Other Infectious Disease - Family History Known Family History: Positive: Diabetes - Social History Alcohol Use: None Hx Substance Use: No Substance Use Type: Reports: None Hx Tobacco Use: No Smoking Status (MU): Never Smoked Tobacco Have You Smoked in the Last Year: No Review of Systems Negative: Skin Diaphoresis Positive: Chest Pain Positive: Shortness Of Breath Positive: Vomiting, Nausea All Other Systems Reviewed And Are Negative: Yes Physical Exam - Summary Physical Exam Summary: General: Well-developed, Morbidly Obese Female. Patient is in moderate distress and is anxious-appearing. HEENT: Normocephalic, Atraumatic. Eyes: Conjuctiva normal, PERRL. Ears: TMs within normal limits. Nares: (-) discharge, (-) erythema. Oropharynx: Clear, mucous membranes moist, (-) exudates. Neck: Soft, FROM, (-) lymphadenopathy, (-) thyromegaly, (-) JVD. Cardiovascular: Normal sinus rhythm, (-) murmur. Lungs: Clear to auscultation bilaterally (-) wheezes, (-) rales, (-) rhonchi. Abdomen: Soft, non-tender, non-distended, (-) organomegaly, normal bowel sounds. Back: (-) CVA tenderness Extremities: No edema. Skin: Warm, dry, (-) rash. Neuro: Alert and oriented x3, no focal deficits. Psychiatric: Mood normal, affect normal. Triage Information Reviewed: Yes Vital Signs On Initial Exam: Initial Vitals Temp Pulse Resp BP Pulse Ox 96.9 F 83 24 92/50 98 06/04/19 01:19 06/04/19 01:19 06/04/19 01:19 06/04/19 01:19 06/04/19 01:19 Vital Signs Reviewed: Yes Diagnostics - Laboratory Result Diagrams: 06/04/19 01:06/04/19 01:26 Lab Statement: Any lab studies that have been ordered have been reviewed, and results considered in the medical decision making process. - Radiology CXR Radiology Interpretation Completed By: ED Physician Summary of Radiographic Findings: CXR showed increased interstitial markings and no pleural effusion, pending official report. - EKG 0120 Cardiac Rate: Other Rate - rate of [address] Segment: Other Summary of EKG Findings: EKG showed rate of 79 BPM, ST elevation in leads III, aVF, V2, V3, V4, V5. ED physician has reviewed and interpreted this EKG. Chest Pain Course/Dx - Course Course Of Treatment: Patient is a 64 y/o F presenting to [facility] via EMS for evaluation of STEMI. EMS reported [address] elevation in leads 2,3 and aVF. EMS arrived 0117, 06/04/19, provider in room to evaluate immediately upon arrival. STEMI code called at 0117. Patient denies Hx of CO. Patient reports chest pain onset 06/03/19 at around 2100 while she was at rest. She states that she had a stress test that was done within the past month. Results were reported to have been unconcerning. EMS administered 3 tabs of nitro, last BP done by EMS just before entering [facility] was 118/66. EMS states they did not administer ASA. She has Hx of Afib, status post ablation and pacemaker, HLD. Patient is on Warfarin. Pain is characterized as intermittent, sharp, and is noted to radiate to left arm and neck. She endorses N/V, SOB but denies diaphoresis. Pain was initially 10/10 but she currently rates pain 8/10 after nitro. Patient is noted to be morbidly obese. She is in moderate acute distress and is moderately anxious-appearing. EKG showed rate of 79 BPM, ST elevation in leads III, aVF, V2, V3, V4, V5. CXR showed increased interstitial markings and no pleural effusion. Bloodwork was obtained. Trop was 0.01, CK-MB was 3.6. Abnormal values include Hgb 11.9, RDW 16, MPV 6.6, INR 4.63, APTT 56.8 , potassium 3.3, BUN/creatinine ratio 23.1, glucose 143, lactic acid 3.7, BNP 159, globulin 4.1, albumin/globulin ratio 0.9. During ED course, patient received Brillinta 180 mg PO, 4 mg Zofran IV, morphine 4 mg IV, Heparin 5000 units IV, ASA 324 mg PO, and 1 L NS. 0122 - Patient's case was discussed with Dr. Dumont, Dr. Dumotn to come to ED to evaluate the patient. 0202 - Dr. Dumont in ED, case discussed. Dr. Dumont evaluated the patient, patient to be admitted by Dr. Dumont to chemical laboratory scientist. - Diagnoses Provider Diagnoses: STEMI (ST elevation myocardial infarction) During the Visit The Following Alert/Code Occurred: STEMI - 0117 - Provider Notifications Discussed Care Of Patient With: Sunny Dumont Time Discussed With Above Provider: 01:22 Instructed by Provider To: Other - 0122 - Patient's case was discussed with Dr. Dumont, Dr. Dumont to come to ED to evaluate the patient. 0202 - Dr. Dumont in ED, case discussed. Dr. Dumont evaluated the patient, patient to be admitted by Dr. Dumont to chemical laboratory scientist. - Critical Care Time Critical Care Time: 30-74 min Discharge ED - Sign-Out/Discharge Documenting (check all that apply): Patient Departure - admit All imaging exams completed and their final reports reviewed: Yes Patient Received Moderate/Deep Sedation with Procedure: No - Discharge Plan Condition: Fair Disposition: ADMITTED TO [facility] - Billing Disposition and Condition Condition: FAIR Disposition: Admitted to [facility] - Attestation Statements Document Initiated by Belloe: Yes Documenting Scribe: ELIER PINEDA Provider For Whom Renuibkelly is Documenting (Include Credential): ARIEL COVARRUBIAS MD Scribe Attestation: IELIER, scribed for ARIEL COVARRUBIAS MD on 06/04/19 at 0356. Scribe Documentation Reviewed: Yes Provider Attestation: The documentation as recorded by the ELIER villatoro accurately reflects the service I personally performed and the decisions made by me, ARIEL COVARRUBIAS MD Status of Scribe Document: Viewed
[2019-06-04] MEDS ORDERED: Aspirin 81 mg CHEW TAB* 81 MG TAB.CHEW ONE (01:23)
[2019-06-04] MEDS ORDERED: Ondansetron INJ* 2 MG/ML VIAL ONE (01:23)
--- OUTSIDE RECORDS SUMMARY | 2019-06-04 01:24 | XMS REPORT | Continuity of Care Document ---
:1955 External Reference #:[id number] Author Name Tawny Mason N.P. (transmitted by agent of provider Angela Leigh) Address [address] [place] [address] Care Team Providers Name Role Phone Long Calderón MD - Family Medicine Care Team Information Final Assembly Inspector [phone] Problems Active Problems Provider Date Granulomatosis with [...] lower extremity Jemal Condon MD Onset: 05/01/2019 Sprain of ankle Jemal Condon MD Onset: 05/22/2019 Social History Type Date Description Comments Sex Unknown Tobacco Use Start: Unknown Never Smoked Cigarettes Smoking Status Reviewed: 06/02/19 Never Smoked Cigarettes ETOH Use Denies alcohol [...] Diarrhea 06/19/2013 Lyrica "spacey" per patient 07/22/2015 Cipro hallucinating Severe 06/02/2019 Medications Active Medications SIG Qnty Indications Ordering Date Provider Torsemide 2 by mouth every 180tabs Gin Alvarado, 05/05/2019 20mg Tablets day M.D. Spironolactone 1 tab by mouth 90tabs Gin Alvarado, 04/29/2019 25mg every day M.D. Tablets [facility] Wound/Burn use daily on 1.5ounces Jemal Condon, 02/27/2019 Dressing wound Gel Prednisone take 5 mg daily 1000tabs M31.30 Lennox Babcock, 02/25/2018 1mg Tablets or as directed M.D. Compression Stockings please use daily 2units Lennox Babcock, 02/25/2018 as needed for M.D. Misc leg/foot swelling Humalin Kwik Pen 30 in the Unknown morning 30 at night Omeprazole 1 by mouth every Unknown 20mg day Capsules DR Mao Allergy 2 puffs each Unknown Relief nare every in 50mcg/Act the morning Suspension Victoza inject 1.8 mg Unknown 18mg/3ML daily in the Solution Pen-Inject morning Tylenol take 1-2 as Unknown 325mg Tablets needed every 4 hours Invokana 1 by mouth every Unknown 300mg Tablets day Humalog before meals on , 100Unit/ML sliding scale Geno Perrin Solution has needed N.P. Gabapentin 1 cap po bid Pesesky, 300mg Geno Perrin Capsules N.P. Warfarin Sodium 1 tablet Shallish, Long, 4mg alternate days Tablets 1/2 tablet as directed Buspirone HCL 2 tabs po hs 60tabs Unknown 15mg Tablets Atenolol 1/2 tab by mouth 180tabs Gin Alvarado, 25mg Tablets once a day . M.DAlyssa [...] Available Vital Signs Date Vital Result Comment 06/02/2019 11:21am Height 67 inches 5'7" Weight 219.00 lb BP Systolic Sitting 106 mmHg Rue reg cuff BP Diastolic Sitting 62 mmHg Rue reg cuff Respiratory Rate 14 /min BMI (Body Mass Index) 34.3 kg/m2 Ejection Fraction 55-60% ECHO 04/28/2019 05/22/2019 10:17am Height 67 inches 5'7" Weight 219.00 lb Heart Rate 90 /min BP Systolic 124 mmHg BP Diastolic 78 mmHg Body Temperature 99.0 F Pain Level 0 BMI (Body Mass Index) 34.3 kg/m2 Results Test Date Facility Test Result H/L Range Note Laboratory test [facility] B-Type 71 pg/mL <=100 finding [address] [place] [address] Peptide BNP [phone] Basic Metabolic [facility] Sodium 136 mmol/L Normal 135-145 Panel [address] [place] [address] [phone] Potassium 4.6 mmol/L Normal 3.5-5.0 Chloride 95 mmol/L Low 101-111 Co2 Carbon Dioxide 29 mmol/L Normal 22-32 Anion Gap 12 mmol/L High 2-11 Glucose 328 mg/dL High 70-100 Blood Urea Nitrogen 43 mg/dL High 6-24 Creatinine 1.20 mg/dL High 0.51-0.95 BUN/Creatinine Ratio 35.8 High 8-20 Calcium 9.8 mg/dL Normal 8.6-10.3 Egfr Non- 45.2 >60 Egfr 54.7 >60 1 CBC Auto 05/08/2019 [facility] White Blood 8.6 10^3/uL Normal 3.5-10.[address] [place] [address] [phone] Red Blood Count 5.19 10^6/uL High 3.70-4.87 Hemoglobin 14.6 g/dL Normal 12.0-16.0 Hematocrit 44 % Normal 35-47 Mean Corpuscular Volume 85 fL Normal 80-97 Mean Corpuscular Hemoglobin 28 pg Normal 27-31 Mean Corpuscular HGB Conc 33 g/dL Normal 31-36 Red Cell Distribution Width 15 % Normal 10-15 Platelet Count 311 10^3/uL Normal 150-450 Mean Platelet Volume 7.7 fL Normal 7.4-10.4 Abs Neutrophils 5.2 10^3/uL Normal 1.5-7.7 Abs Lymphocytes 2.5 10^3/uL Normal 1.0-4.8 Abs Monocytes 0.8 10^3/uL Normal 0-0.8 Abs Eosinophils 0.1 10^3/uL Normal 0-0.6 Abs Basophils 0.0 10^3/uL Normal 0-0.2 Abs Nucleated RBC 0.0 10^3/uL Granulocyte % 60.1 % Lymphocyte % 29.4 % Monocyte % 9.2 % Eosinophil % 0.8 % Basophil % 0.5 % Nucleated Red Blood Cells % 0.1 Laboratory test 01/15/2019 [facility] Surgical SEE RESULT [address] [place] [address] [phone] Laboratory test 01/15/2019 [facility] Point of Care 162 mg/dL High 70-10 [address] Glucose 0 [place] [address] [phone] Inr/Protime 01/15/2019 [facility] Inr 2.61 High 0.82- [address] 1.09 [place] [address] [phone] Laboratory test 01/15/2019 [facility] Point of Care 139 mg/dL High 70-10 [address] Glucose 0 [place] [address] [phone] 1 Because ethnic data is not always readily [...] 15-29 5 Kidney failure <15 (or dialysis) 2 SEE RESULT BELOW Name: AYANNA MOHAMUD : [address]: Jemal Condon MD Acct: [id number] Unit: [id number] AGE: 64 Location: OR Re01/15/19 SEX: F Status: [facility] SPEC: [id number] CHELESA: 01/15/19- SUBM DR: Jemal Condon MD REQ: [id number] RECD: 01/15/19 STATUS: SOUT _ ORDERED: Artemio, [...] skin margin is inked and sales representative consultant sections CONTINUED ON NEXT PAGE DEPARTMENT OF PATHOLOGY, [address] [place] [address] Ajit Lamb M.D. Director [facility] # [id number] RUN DATE: 01/22/19 [facility] LAB LIVE PAGE 2 Patient: AYANNA MOHAMUD [id number] (Continued) GROSS DESCRIPTION (Continued) are submitted in cassettes A and B to include bone following decalcification in cassette A. 2. The specimen is received in formalin labeled, Right Knee Ganglion Cyst, and consists of a 5.0 x 3.4 x 1.0 cm paniagua-pink shaggy focally disrupted rubbery unilocular cyst containing paniagua-pink mucus. The specimen is serially sectioned and sales representative consultant sections are submitted in one cassette. Signed by and Reported on: Briseyda Conley MD 01/16/19 1341 END OF REPORT DEPARTMENT OF PATHOLOGY, [address] [place] [address] Ajit Lamb M.D. Director [facility] # [id number] 3 Coil Machine Supervisor: [id number] Standard intensity warfarin therapeutic range: 2.0-3.0 High intensity warfarin therapeutic range: 2.5-3.5 5 Coil Machine Supervisor: [id number] Procedures Date Code Description Status 05/14/2019 70498 Moderate Sedation Services; Same Phys Intl 15 Mins; PT >= Completed 5 Years 05/14/2019 06152 Color Flow Doppler/Interp & Reprt Completed 05/14/2019 32199 Pulse Wave/Continuous-Interp.RPT Completed 05/14/2019 83091 Echocardiography, Transesophageal, Real Time W/Image 2D Completed W/W/O M-M 05/12/2019 78280 Treadmill Interp/Report Only Completed 05/12/2019 34761 Stress Test Supervsn W/Out I/R Completed 04/28/2019 00848 ECHO Transthoracic, Real-Time 2D With Doppler And Color Completed Flow 04/28/2019 19154 ECHO Transthoracic, Real-Time 2D With Doppler And Color Completed Flow 04/28/2019 48610 Interrogation Device Eval In Person W/ Completed Analysis,Single,Dual,Mul 04/28/2019 50457 Interrogation Device Eval In Person W/DR Completed Analysis,Single,Dual,Mul 03/09/201967509 Aspiration &/Or Inj Of Ganglion Cyst(S) Any Location Completed 02/27/201953649 Aspiration &/Or Inj Of Ganglion Cyst(S) Any Location Completed 01/15/2019 68620 Amputation,Toe;Interphalangeal Joint Completed 01/15/2019 03740 Excision Lesion Meniscus/Capsule Knee Completed 01/15/2019 31665 Excision Lesion Meniscus/Capsule Knee Completed 01/06/2019 30994 EKG Tracing & Interpretation Completed 12/18/2018 17293 Icd Eval Sing,Dual,Multi Lead Remote Recpt Transm Tech Rev Completed Tech S 12/18/2018 02584 Icd Eval Sing,Dual,Multi Lead Remote Recpt Transm Tech Rev Completed Tech S 12/18/2018 75372 Pacemaker Check Remote Up To 90Days Single,Dual,Multiple Completed Lead 12/18/2018 12075 Pacemaker Check Remote Up To 90Days Single,Dual,Multiple Completed Lead Medical Devices Description No Information Available Encounters Type Date Location Provider Dx Diagnosis Office Visit 05/22/2019 [facility] Roseanna, S93.492A Sprain of other 10:15a Services Of [facility] REDMODN ligament of left ankle, initial encounter Office Visit 05/15/2019 [facility] Tawny Mason, Z95.0 Presence of 10:30a Of Cut Pressman N.P. cardiac pacemaker R06.02 Shortness of breath I34.0 Nonrheumatic mitral (valve) insufficiency I48.2 Chronic atrial fibrillation I95.89 Other hypotension Office Visit 05/12/2019 9:10a [facility] Fior R07.9 Chest pain, Assoc,pc Ben, VASYL unspecified Hospitalists I48.91 Unspecified atrial fibrillation Office Visit 05/12/2019 8:15a W[facility] Care Aster Zhu E11.622 Type 2 diabetes Center AT [facility] J[place]UA [place] mellitus with other skin ulcer L97.818 Non-prs chronic ulcer oth prt r low leg with oth severity Office Visit 05/11/2019 9:09a [facility] Keiry L97.919 Non-prs Assoc,pc Ree Rivera, janeen c Hospitalists GM[employer] unsp prt of r low leg w unsp severity I48.91 Unspecified atrial fibrillation R06.02 Shortness of breath R07.9 Chest pain, unspecified Office Visit 05/10/2019 2:25p [facility] Jesus Landis R06.02 Shortness of Of Cut Pressman Pili Toscano breath I34.0 Nonrheumatic mitral (valve) insufficiency Office Visit 05/09/2019 9:08a [facility] R06.02 Shortness of Assoc,sarah Lui, GM[employer] breath Hospitalists R07.9 Chest pain, unspecified Office Visit 05/08/2019 10:00a [facility] Tawny S. R06.02 Shortness of Of Cut Pressman Foster, N.P. breath Z95.0 Presence of cardiac pacemaker I34.0 Nonrheumatic mitral (valve) insufficiency I48.2 Chronic atrial fibrillation Office Visit 05/05/2019 10:00a [facility] Nurse Visit R06.02 Shortness of Of Cut Pressman IC breath Office Visit 05/01/2019 10:30a Orthopedic Jemal L97.811 Non-prs chr [facility] Condon MD ulcer oth prt r low leg limited to brkdwn skin M67.461 Ganglion, right knee Z89.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 great toe Office Visit 04/24/2019 1:30p [facility] Gin Alvarado, I48.2 Chronic atrial Of Jerry M.DAlyssa fibrillation Z95.0 Presence of cardiac pacemaker R06.02 Shortness of breath Office Visit 04/17/2019 2:15p Orthopedic Jemal Condon, Z47.81 Encounter for Services Of orthopedic [facility] aftercare following surgical amp 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 I48.2 Chronic atrial Of Cut Pressman Foster, N.P. 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 insulin E11.42 Type 2 diabetes mellitus with diabetic polyneuropathy S91.111S Lac w/o fb of right great toe w/o damage to nail, sequela S92.422D Disp fx of dist phalanx of l great toe, 7thD Office Visit 12/04/2018 [facility] S92.401G Displaced unsp 12:52p Assoc,sarah Barnett, [employer] fx right great Hospitalists toe, subs for fx w delay heal Office Visit 12/03/2018 [facility] Nicolette Domingo, E11.40 Type 2 diabetes 11:57a [facility] PA mellitus with diabetic neuropathy, unsp L03.032 Cellulitis of left toe Office Visit 12/03/2018 [facility] S92.401G Displaced unsp 12:52p Asssarah vidal NP fx right great Hospitalists toe, subs for fx w delay heal I48.91 Unspecified atrial fibrillation I50.30 Unspecified diastolic (congestive) heart failure E11.49 Type 2 diabetes w oth diabetic neurological complication 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 (current) use of insulin Office Visit 12/02/2018 1:03p Orthopedic Mya Constantino S92.421D Disp fx of [facility] Alejandre dist phalanx of r great toe, 7thD L03.031 Cellulitis of right toe Office Visit 12/02/2018 12:51p [facility] S92.401G Displaced unsp Assoc,Arsalan Roberts.D. 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 Z79.4 USP (current) use of insulin Office Visit 12/01/2018 8:55a [facility] Juan David Landis S92.911B Unsp fracture Infectious Pili Mondragon of right Diseases toe(s), init encntr for open fracture L03.031 Cellulitis of right toe E11.40 Type 2 diabetes mellitus with diabetic neuropathy, unsp 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 Z79.52 exterminator helper termite (current) use of systemic steroids Office Visit 12/01/2018 12:57p Orthopedic Walter S91.111A Lac w/o fb of [facility] Farooq M.D. right great toe w/o damage to nail, init Office Visit 12/01/2018 12:51p [facility] S92.401G Displaced unsp Assocsarah M.D. 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 Z79.4 USP (current) use of insulin Assessments Date Code Description Provider 06/02/2019 Z95.0 Presence of cardiac pacemaker Tawny Mason, N.P. 06/02/2019 R06.02 Shortness of breath Tawny Mason, N.P. 06/02/2019 I34.0 Nonrheumatic mitral (valve) Tawny Mason N.P. insufficiency 06/02/2019 I48.2 Chronic atrial fibrillation Tawny Mason, N.P. 05/22/2019 S93.492A Sprain of other ligament of left Jemal MD Roseanna ankle, initial encounter 05/15/2019 Z95.0 Presence of cardiac pacemaker Tawny Mason, N.P. 05/15/2019 R06.02 Shortness of breath Tawny Mason, N.P. 05/15/2019 I34.0 Nonrheumatic mitral (valve) Tawny Mason, N.P. insufficiency 05/15/2019 I48.2 Chronic atrial fibrillation Tawny Mason, N.P. 05/15/2019 I95.89 Other hypotension Tawnydaniel Mason, N.P. 05/14/2019 I34.0 Nonrheumatic mitral (valve) Gin Alvarado M.D. insufficiency 05/12/2019 E11.622 Type 2 diabetes mellitus with Astermaryana [place] NP other skin ulcer 05/12/2019 L97.818 Non-pressure chronic ulcer of Aster Audra [place] NP other part of right lower leg with other specified severity 05/12/2019 R06.02 Shortness of breath Devin Ram MD, [facility] 05/12/2019 R07.9 Chest pain, unspecified Fior Contreras PA-C 05/12/2019 I48.91 Unspecified atrial fibrillation Fior Contreras PA-C 05/11/2019 L97.919 Non-pressure chronic ulcer of Keiry HuddlestonJOSHUA clark unspecified part of right lower leg with unspecified severity 05/11/2019 I48.91 Unspecified atrial fibrillation Keiry Keenan Doto, [employer] 05/11/2019 R06.02 Shortness of breath Keiry Huddlestono, [employer] 05/11/2019 R07.9 Chest pain, unspecified Keiry Keenan Doto, [employer] 05/10/2019 R06.02 Shortness of breath Jesus Toscano M.D. 05/10/2019 I34.0 Nonrheumatic mitral (valve) Jesus Toscano M.D. insufficiency 05/10/2019 R06.02 Shortness of breath Lois Recio, PA 05/10/2019 R07.9 Chest pain, unspecified Lois Recio, PA 05/09/2019 R06.02 Shortness of breath Leah Lui, [employer] 05/09/2019 R07.9 Chest pain, unspecified Leah Lui, [employer] 05/08/2019 R06.02 Shortness of breath Tawny Mason, N.P. 05/08/2019 Z95.0 Presence of cardiac pacemaker Tawny Mason N.P. 05/08/2019 I34.0 Nonrheumatic mitral (valve) Tawny Mason, N.P. insufficiency 05/08/2019 I48.2 Chronic atrial fibrillation Tawny Mason, N.P. 05/05/2019 R06.02 Shortness of breath Nurse Visit IC 05/01/2019 L97.811 Non-pressure chronic ulcer of Jemal Condon MD other part of right lower leg limited to breakdown of skin 05/01/2019 M67.461 Ganglion, right knee Jemal Condon MD 05/01/2019 Z89.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 debra Condon MD toe 04/28/2019 R06.02 Shortness of breath Gin Alvarado M.D. 04/28/2019 Z95.0 Presence of cardiac pacemaker Gin Alvarado M.D. 04/28/2019 Z95.0 Presence of cardiac pacemaker Ica Pacer Schedule 04/28/2019 R06.02 Shortness of breath Ica ECHO Schedule 04/24/2019 I48.2 Chronic atrial fibrillation Gin Alvarado M.D. 04/24/2019 Z95.0 Presence of cardiac pacemaker Gin Alvarado M.D. 04/24/2019 R06.02 Shortness of breath Gin Alvarado M.D. 04/17/2019 Z47.81 Encounter for orthopedic aftercare Jemal Condon MD following surgical amputation 04/17/2019 Z89.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 debra Condon MD toe 04/17/2019 M67.461 Gely, right anusha Condon MD 04/03/2019 Z47.81 Encounter for orthopedic aftercare Jemal Condon MD following surgical amputation 04/03/2019 Z89.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 debra Condon MD toe 04/03/2019 M67.461 Gely, right knee Jemal Condon MD 03/24/2019 Z89.411 Acquired absence of SAVAGE Mcduffie toe 03/24/2019 Z47.81 Encounter for orthopedic aftercare Lupe Krissy, RPA-C following surgical amputa 03/24/2019 M67.461 Ganglion, right knee Lupe Krissy, RPA-C 03/09/2019 Z47.81 Encounter for orthopedic aftercare Jemal Condon MD following surgical amp 03/09/2019 Z89.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 debra Condon MD toe 03/09/2019 M6Juan Carlos461 Ganglion, right knee Jemal Condon MD 03/04/2019 Z47.81 Encounter for orthopedic aftercare Jemal Condon MD following surgical amp 03/04/2019 Z89.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 debra Condon MD toe 03/04/2019 M67.461 Ganglion, right knee Jemal Condon MD 02/27/2019 M67.461 Ganglion, right knee Lupe Dumfries, RPA-C 02/27/2019 Z89.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 great Lupe Dumfries, RPA-C toe 02/27/2019 Z47.81 Encounter for orthopedic aftercare Lupe Dumfries, RPA-C following surgical amputa 02/18/2019 M67.461 Ganglion, right knee Jemal Condon MD 02/18/2019 Z89.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 debra Condon MD toe 02/18/2019 Z47.81 Encounter for orthopedic aftercare Jemal Condon MD following surgical amputa 02/13/2019 M67.461 Ganglion, right knee Lupe Krissy, RPA-C 02/13/2019 Z89.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 great Lupe Dumfries, RPA-C toe 02/13/2019 Z47.81 Encounter for orthopedic aftercare Lupe Dumfries, RPA-C following surgical amputa 02/06/2019 M67.461 Ganglion, right knee Jemal Condon MD 02/06/2019 Z89.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 debra Condon MD toe 02/06/2019 Z47.81 Encounter for orthopedic aftercare Jemal Condon MD following surgical amp 01/28/2019 M67.461 Ganglion, right knee Jemal Condon MD 01/28/2019 Z89.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 debra Condon MD toe 01/28/2019 Z47.81 Encounter for orthopedic aftercare Jemal [...] Condon MD diabetic neuropathy, unspecifi 01/05/2019 Z79.4 USP (current) use of insulin Jemal Condon MD 01/05/2019 S91.111D Laceration without foreign body of Jemal Condon MD right great toe without d 01/05/2019 M67.461 Gely, right knee Jemal Condon MD 12/30/2018 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 (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) use of insulin Jemal Condon MD [...] S91.112D Laceration w/o fb of left great Jemal Condon MD toe w/o damage to nail, subs 12/16/2018 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 (current) use of insulin Jemal Condon MD 12/16/2018 E11.40 Type 2 diabetes mellitus with Jemal Condon MD diabetic neuropathy, unsp 12/16/2018 M67.461 Ganglion, right knee Jemal Condon MD 12/09/2018 Z79.4 USP (current) use of insulin Jemal Condon MD 12/09/2018 E11.42 Type 2 diabetes mellitus with Jemal Condon MD diabetic polyneuropathy 12/09/2018 S91.111S Laceration without foreign body of Jemal Condon MD right great toe without d 12/09/2018 S92.422D Displaced fracture of distal Jemal Condon MD phalanx of left great toe, subs 12/04/2018 S92.401G Displaced unsp fx right great toe, Olive Barnett, JOSHUA subs for fx w delay heal 12/03/2018 E11.40 Type 2 diabetes mellitus with JOSÉ Guerra diabetic neuropathy, unspecifi 12/03/2018 L03.032 Cellulitis of left toe JOSÉ Guerra 12/03/2018 S92.401G Displaced unsp fx right great toe, Olive Barnett, JOSHUA subs for fx w delay heal 12/03/2018 I48.91 Unspecified atrial fibrillation Olive Barnett, GM[employer] 12/03/2018 I50.30 Unspecified diastolic (congestive) Olive Barnett, [employer] heart failure 12/03/2018 E11.49 Type 2 diabetes w oth diabetic Olive Barnett, [employer] neurological complication 12/03/2018 M31.30 Erickson's granulomatosis without Olive Barnett, [employer] renal involvement 12/03/2018 Z79.4 USP (current) use of insulin Olive Barnett, [employer] 12/02/2018 S92.421D Disp fx of dist phalanx [...] Maegan Armstrong M.D. renal involvement 12/02/2018 Z79.4 USP (current) use of insulin Maegan Armstrong M.D. 12/01/2018 S92.911B Unsp fracture of right toe(s), Juan David Mondragon M.D. init encntr for open fracture 12/01/2018 S91.111A Lac [...] atrial fibrillation Maegan Armstrong M.D. 12/01/2018 Z79.52 USP (current) use of Juan David Mondragon M.D. systemic steroids 12/01/2018 I50.30 Unspecified diastolic (congestive) Maegan Armstrong M.D. heart failure 12/01/2018 M31.30 Erickson's granulomatosis without Maegan Armstrong M.D. renal involvement 12/01/2018 Z79.4 USP (current) use of insulin Maegan Armstrong M.D. Plan of Treatment Future Appointment(s):07/14/2019 9:45 am - Gin Alvarado M.D. at [facility]06/02/2019 - Tawny Mason, N.P.Z95.0 Presence of cardiac cwqbfiruzT17.02 Shortness of breathRecommendations:Ok to decrease torsemide to 1 tab MWF only; 2 tabs the remaining days.I34.0 Nonrheumatic mitral (valve) insufficiencyFollow up:OV 07/2019 LBS as scheduled.Recommendations:only mild leakage of your mitral valve. Unlikely this was making you short of breath.I48.2 Chronic atrial fibrillation Functional Status Description No Information Available Mental Status Description No Information Available Referrals Description No Information Available
--- OUTSIDE RECORDS SUMMARY | 2019-06-04 01:24 | XMS REPORT | Continuity of Care Document ---
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 Onset: 04/14/2012 Benign essential hypertension Long Calderón M.D. Onset: 07/28/2012 Long-term current use of anticoagulant Long Calderón M.D. Onset: 2016 Persistent atrial fibrillation Long Calderón M.D. Onset: 09/20/2016 Granulomatosis with polyangiitis Long Calderón M.D. Onset: 04/04/2017 Cellulitis of toe Long Calderón M.D. Onset: 12/06/2018 Paroxysmal atrial fibrillation Long Calderón M.D. Onset: 12/06/2018 Generalized anxiety disorder Long Calderón M.D. Onset: 11/11/2018 Acute sinusitis Long Calderón M.D. Onset: 11/11/2018 Type II diabetes mellitus uncontrolled Long Calderón M.D. Onset: 2018 Nervous system symptoms Long Calderón M.D. Onset: 08/28/2018 Social History Type Date Description Comments Sex Unknown Tobacco Use Start: Unknown Never Smoked Cigarettes ETOH Use Never used alcohol Tobacco Use Start: Unknown Patient has never smoked Smoking Status Reviewed: 05/30/19 Patient has never smoked Allergies, Adverse Reactions, Alerts Active Allergies Reaction Severity Comments Date Junol 01/30/2008 Bactrim 01/30/2008 Codeine 01/30/2008 Hydrocodone/Apap Nausea and Vomiting, HEADACHE,RAPID 11/23/2008 HEART BEAT Lyrica 02/05/2014 Metformin excessive diarrhea 02/05/2014 Ciprofloxacin Hallucinations Severe 05/30/2019 Medications Active Medications SIG Qnty Indications Ordering Date Provider Buspirone HCL Take 1 Tablet By 60tabs Long FAlyssa 11/11/2018 15mg Mouth Twice Pili Calderón Tablets Daily Diflucan 1 by mouth times 2tabs Long FAlyssa 11/11/2018 150mg Tablets 1 day, january Pili Calderón repeat in 5-7d Prednisone 1 po qd 135tabs J44.0 Long FAlyssa 2018 5mg Tablets Pili Calderón Flonase Allergy Relief 1 spray to each 1Mdi J44.0 Lennox T. 2018 nostril every MD Erendira 50mcg/Act day Invokana Take 1 Tablet By 90tabs Long FAlyssa 10/17/2017 300mg Tablets Mouth Once Daily Pili Calderón For Type II Diabetes Ipratropium [place] 1 unit dose four 62.500ml Long FAlyssa 04/12/2016 0.02% times a day as Pili Calderón Solution directed dx.r06.02 last seen 04/10/16 Mometasone Furoate apply three 45gm Long F. 04/10/2016 0.1% times a day as Pili Calderón Cream needed Humalog inject 20 units 30ml Long FAlyssa 10/16/2014 100Unit/ML before each meal Pili Calderón Solution and at bedtime. take an extra 4 units for readings over 300. (max 90 unts daily) Lisinopril Take 1 Tablet By 180tabs I10 Long FAlyssa 10/26/2013 5mg Tablets Mouth Twice Pili Calderón Daily Warfarin Sodium 1 po qod, 1/2 po 30tabs Long FAlyssa 11/06/2012 4mg qod Pili Calderón Tablets Xopenex use qd - qid in 1box 461.9 Long FAlyssa 07/28/2012 1.25mg/3ML nebulizer for Pili Calderón Nebulizer sob/cough/ wheeze Omeprazole Take 1 Capsule 180caps Long FAlyssa 04/25/2011 20mg Capsules By Mouth Twice Pili Calderón DR Daily Furosemide 1 by mouth every Unknown 20mg Tablets day Spironolactone 1 by mouth every Unknown 25mg day Tablets Toujeo Solostar 40 units q hs Unknown 300Unit/ML Solution Pen-Inject Relion Insulin before meals & 120units Long F. Syringe/U-100/0.3ML/31 every night at Pili Calderón G X 5/16" bedtime as 31G X 516" 0.3 directed w/ ML [facility] [place]alog - dx: e11.65 - last seen 01/09/18 Victoza 1.8 mg under the samples Long FAlyssa 18mg/3ML Solution skin daily as Pili Calderón Pen-Inject directed Klor-Con M20 take two tablets 180tabs I10 Long FAlyssa 20Meq by mouth once Pili Calderón Tablets ER daily Gabapentin 1 po bid 270caps Long Jonas 300mg Capsules Pili Calderón Atenolol 1 po bid 90tabs I48.0 Unknown 25mg Tablets Oxygen Therapy 2 L prn Long Jonas Pili Calderón History Medications Tumersaid Joleen Stern, 05/28/2019 - Tablets SAUSAGE COOKER 05/28/2019 Cipro take one by 14tabs N39.0 Joleen Stern, 05/28/2019 - 500mg Tablets mouth twice SAUSAGE COOKER 05/30/2019 daily for 7 days Augmentin 1 by mouth 14tabs Long Calderón, 12/06/2018 - 875-125mg twice a day x 7 M.DAlyssa 12/15/2018 Tablets days Immunizations CPT Code Status Date Vaccine Lot # [id number] Given 08/28/2018 High-Dose, Influenza Virus Vacccine-fluzone 65 and [id number] older [id number] Given 07/04/2017 High-Dose, Influenza Virus Vacccine-fluzone 65 and [id number] older 86911 Given 07/16/2016 Pneumococcal Immunization [id number] Given 07/16/2016 Influenza Vac, Quadrivalent, Slit Virus, Im [id number] Given 06/01/2010 DO Not Use Split Influenza Virus Vaccine Vital Signs Date Vital Result Comment 05/30/2019 11:18am BP Systolic 112 mmHg BP Diastolic 72 mmHg Heart Rate 92 /min Body Temperature 98.2 F Weight 215.00 lb 05/28/2019 11:23am BP Systolic 118 mmHg BP Diastolic 66 mmHg Heart Rate 72 /min Body Temperature 98.4 F Respiratory Rate 16 /min Weight 220.00 lb Results Test Date Facility Test Result H/L Range Note CBC Electronic (Fma New) 05/30/2019 [facility] WBC 8.98 4.0-10.0 (607)- - RBC 4.95 3.93-6.0 Hemoglobin (Fma/CMC/CTX) 13.6 g/dL 12.0-17.0 Hematocrit (Fma/CMC/CTX) 42.9 % 35.0-50.0 Mean Corpuscular Vol 86.7 fL 80-95 Mean Corpuscular Hemoglobin 27.5 pg 25.6-32.2 Mean Corpuscular Hemo Concen 31.7 g/dL Low 32.2-36.0 Platelets 220 10^3/ul 163-400 RDW-CV 15.1 High 11.6-14.4 Mean Platelet Volume 9.7 fL 8.0-12.4 Absolute Neutrophils BLD 4.56 1.56-6.13 Absolute Lymphocytes 2.78 1.18-3.74 Absolute Monocytes BLD Auto 1.53 High 0.24-0.82 Absolute Eos Blood 0.03 Low 0.04-0.54 Absolute Basophils 0.03 0.01-0.08 Neutrophil % 50.8 % 34.0-70.0 Lymph% 31.0 % 20.0-52.0 Monocytes % 17.0 % High 5.0-12.0 Eos % 0.3 % Low 0.7-7.0 Basophil% 0.3 % 0-1.2 Laboratory test 05/30/2019 [facility] Inr (a) 3.0 2.0-3.0 finding (607)- - Laboratory test 05/30/2019 Diehl Chaparro([facility]) TSH <pending> 0.5-5.0 finding Laboratory test 05/28/2019 [facility] Hemoglobin A1c 8.2 % % High 4.1-5.7 finding (607)- - (a) Ua - Non Micro 05/28/2019 [facility] Medicine Appearance CLEAR ([facility]) (607)- - Color DK.YELLOW Glucose, Urine (Fma/[facility]/CTX) 500 MG/dL High Known DM Bilirubin NEG Ketones NEG SP Grav 1.020 Blood TRACE-LYSED PH 6.5 Protein 3+ Urobil 4.0 Nitrite NEG Leukocytes (a/[facility]) TRACE Laboratory test 05/28/2019 [facility] Inr (a) 3.9 High 2.0-3.0 finding (607)- - Laboratory test 05/13/2019 [facility] Inr (a) 2.0 2.0-3.0 finding (607)- - Laboratory test 05/09/2019 [facility] Troponin I 0.00 ng/mL <0.04 1 finding Lactic Acid 2.5 mmol/L Critical high 0.5-2.0 2 B-Type Natriuretic Peptide BNP 90 pg/mL <=100 Laboratory test finding 05/09/2019 [facility] Troponin I 0.01 ng/mL <0.04 3 CBC Auto Diff 05/09/2019 [facility] White Blood Count 10.9 10^3/uL High 3.5- 10.8 Red Blood Count 5.46 10^6/uL High 3.70-4.87 Hemoglobin 15.5 g/dL Normal 12.0-16.0 Hematocrit 46 % Normal 35-47 Mean Corpuscular Volume 84 fL Normal 80-97 Mean Corpuscular Hemoglobin 28 pg Normal 27-31 Mean Corpuscular HGB Conc 34 g/dL Normal 31-36 Red Cell Distribution Width 15 % Normal 10-15 Platelet Count 334 10^3/uL Normal 150-450 Mean Platelet Volume 7.7 fL Normal 7.4-10.4 Abs Neutrophils 7.0 10^3/uL Normal 1.5-7.7 Abs Lymphocytes 3.0 10^3/uL Normal 1.0-4.8 Abs Monocytes 0.9 10^3/uL High 0-0.8 Abs Eosinophils 0.0 10^3/uL Normal 0-0.6 Abs Basophils 0.1 10^3/uL Normal 0-0.2 Abs Nucleated RBC 0.0 10^3/uL Granulocyte % 64.0 % Lymphocyte % 27.2 % Monocyte % 7.9 % Eosinophil % 0.3 % Basophil % 0.6 % Nucleated Red Blood Cells % 0.0 Comp Metabolic Panel 05/09/2019 [facility] Sodium 132 mmol/L Low 135-145 Potassium 3.7 mmol/L Normal 3.5-5.0 Chloride 90 mmol/L Low 101-111 Co2 Carbon Dioxide 30 mmol/L Normal 22-32 Anion Gap 12 mmol/L High 2-11 Glucose 187 mg/dL High 70-100 Blood Urea Nitrogen 49 mg/dL High 6-24 Creatinine 1.45 mg/dL High 0.51-0.95 BUN/Creatinine Ratio 33.8 High 8-20 Calcium 10.0 mg/dL Normal 8.6-10.3 Total Protein 8.9 g/dL Normal 6.4-8.9 Albumin 4.3 g/dL Normal 3.2-5.2 Globulin 4.6 g/dL High 2-4 Albumin/Globulin Ratio 0.9 Low 1-3 Total Bilirubin 0.90 mg/dL Normal 0.2-1.0 Alkaline Phosphatase 67 U/L Normal 34-104 Alt 21 U/L Normal 7-52 Ast 31 U/L Normal 13-39 Egfr Non- 36.4 >60 Egfr 44.0 >60 4 Inr/Protime 05/09/2019 [facility] Inr 3.38 High 0.82-1.09 5 CBC Auto Diff 05/08/2019 [facility] White Blood Count 8.6 10^3/uL Normal 3.5- 10.8 Red Blood Count 5.19 10^6/uL High 3.70-4.87 [...] % Nucleated Red Blood Cells % 0.1 Basic Metabolic Panel 05/08/2019 [facility] Sodium 136 mmol/L Normal 135-145 Potassium 4.6 mmol/L Normal 3.5-5.0 Chloride 95 mmol/L Low 101-111 Co2 Carbon Dioxide 29 mmol/L Normal 22-32 Anion Gap 12 mmol/L High 2-11 Glucose 328 mg/dL High 70-100 Blood Urea Nitrogen 43 mg/dL High 6-24 Creatinine 1.20 mg/dL High 0.51-0.95 BUN/Creatinine Ratio 35.8 High 8-20 Calcium 9.8 mg/dL Normal 8.6-10.3 Egfr Non- 45.2 >60 Egfr 54.7 >60 6 Laboratory test 05/08/2019 [facility] B-Type Natriuretic 71 pg/mL <=100 finding Peptide BNP CBC Auto Diff 02/20/2019 [facility] White Blood Count 10.4 10^3/uL Normal 3.5- 10.8 Red Blood Count 5.25 10^6/uL High 3.70-4.87 Hemoglobin 14.9 g/dL Normal 12.0-16.0 Hematocrit 44 % Normal 35-47 Mean Corpuscular Volume 85 fL Normal 80-97 Mean Corpuscular Hemoglobin 28 pg Normal 27-31 Mean Corpuscular HGB Conc 34 g/dL Normal 31-36 Red Cell Distribution Width 15 % Normal 10-15 Platelet Count 344 10^3/uL Normal 150-450 Mean Platelet Volume 7.8 fL Normal 7.4-10.4 Abs Neutrophils 6.1 10^3/uL Normal 1.5-7.7 Abs Lymphocytes 3.3 10^3/uL Normal 1.0-4.8 Abs Monocytes 0.7 10^3/uL Normal 0-0.8 Abs Eosinophils 0.1 10^3/uL Normal 0-0.6 Abs Basophils 0.1 10^3/uL Normal 0-0.2 Abs Nucleated RBC 0.0 10^3/uL Granulocyte % 59.4 % Lymphocyte % 32.2 % Monocyte % 6.9 % Eosinophil % 0.5 % Basophil % 1.0 % Nucleated Red Blood Cells % 0.1 Laboratory test 02/20/2019 [facility] MRSA/S. aureus Ssti SEE RESULT BELOW 7 finding PCR Wound Culture/Sensi 02/20/2019 [facility] Wound/Misc SEE RESULT BELOW 8 Culture-Gram Stain Laboratory test 02/20/2019 [facility] C Reactive Protein 9.30 mg/L High <8.01 finding Lactic Acid 3.0 mmol/L Critical high 0.5-2.0 9 Comp Metabolic Panel 02/20/2019 [facility] Sodium 138 mmol/L Normal 135-145 Potassium 4.6 mmol/L Normal 3.5-5.0 Chloride 98 mmol/L Low 101-111 Co2 Carbon Dioxide 31 mmol/L Normal 22-32 Anion Gap 9 mmol/L Normal 2-11 Glucose 150 mg/dL High 70-100 Blood Urea Nitrogen 24 mg/dL Normal 6-24 Creatinine 0.91 mg/dL Normal 0.51-0.95 BUN/Creatinine Ratio 26.4 High 8-20 Calcium 10.6 mg/dL High 8.6-10.3 Total Protein 8.9 g/dL Normal 6.4-8.9 Albumin 4.3 g/dL Normal 3.2-5.2 Globulin 4.6 g/dL High 2-4 Albumin/Globulin Ratio 0.9 Low 1-3 Total Bilirubin 0.60 mg/dL Normal 0.2-1.0 Alkaline Phosphatase 60 U/L Normal 34-104 Alt 18 U/L Normal 7-52 Ast 29 U/L Normal 13-39 Egfr Non- 62.2 >60 Egfr 75.3 >60 10 Laboratory test 01/15/2019 [facility] Point of Care 162 mg/dL High 70-100 11 finding Glucose Inr/Protime 01/15/2019 [facility] Inr 2.61 High 0.82-1.09 12 Laboratory test 01/15/2019 [facility] Point of Care 139 mg/dL High 70-100 13 finding Glucose Laboratory test 12/19/2018 [facility] Medicine Inr (Fma) 2.4 2.0-3.0 finding (607)- - Wound 12/06/2018 [facility] Wound/Misc SEE RESULT 14 Culture/Sensi Culture-Gram BELOW Stain Laboratory test 12/06/2018 Family Medicine Inr (Fma) 2.1 2.0-3.0 finding (607)- - Laboratory test 11/29/2018 [facility] Point of Care 176 mg/dL High 70-100 15 finding Glucose Comp Metabolic 11/29/2018 [facility] Sodium 137 mmol/L Normal 135-145 Panel Potassium 3.8 mmol/L Normal 3.5-5.0 Chloride 101 mmol/L Normal 101-111 Co2 Carbon Dioxide 26 mmol/L Normal 22-32 Anion Gap 10 mmol/L Normal 2-11 Glucose 213 mg/dL High 70-100 Blood Urea Nitrogen 18 mg/dL Normal 6-24 Creatinine 0.81 mg/dL Normal 0.51-0.95 BUN/Creatinine Ratio 22.2 High 8-20 Calcium 9.7 mg/dL Normal 8.6-10.3 Total Protein 8.2 g/dL Normal 6.4-8.9 Albumin 4.0 g/dL Normal 3.2-5.2 Globulin 4.2 g/dL High 2-4 Albumin/Globulin Ratio 1.0 Normal 1-3 Total Bilirubin 0.50 mg/dL Normal 0.2-1.0 Alkaline Phosphatase 55 U/L Normal 34-104 Alt 17 U/L Normal 7-52 Ast 25 U/L Normal 13-39 Egfr Non- 71.4 >60 Egfr 86.4 >60 16 Laboratory test finding 11/29/2018 [facility] C Reactive Protein 13.04 mg/L High <8.01 Lactic Acid 1.9 mmol/L Normal 0.5-2.0 17 CBC Auto Diff 11/29/2018 [facility] White Blood Count 9.1 10^3/uL Normal 3.5- 10.8 Red Blood Count 5.04 10^6/uL High 3.70-4.87 Hemoglobin 14.1 g/dL Normal 12.0-16.0 Hematocrit 43 % High 33-41 Mean Corpuscular Volume 85 fL Normal 80-97 Mean Corpuscular Hemoglobin 28 pg Normal 27-31 Mean Corpuscular HGB Conc 33 g/dL Normal 31-36 Red Cell Distribution Width 15 % Normal 10.5-15 Platelet Count 301 10^3/uL Normal 150-450 Mean Platelet Volume 7.6 fL Normal 7.4-10.4 Abs Neutrophils 4.7 10^3/uL Normal 1.5-7.7 Abs Lymphocytes 3.5 10^3/uL Normal 1.0-4.8 Abs Monocytes 0.7 10^3/uL Normal 0-0.8 Abs Eosinophils 0.1 10^3/uL Normal 0-0.6 Abs Basophils 0.1 10^3/uL Normal 0-0.2 Abs Nucleated RBC 0 10^3/uL Granulocyte % 51.9 % Lymphocyte % 38.4 % Monocyte % 7.8 % Eosinophil % 1.3 % Basophil % 0.6 % Nucleated Red Blood Cells % 0.1 Urinalysis Profile 11/29/2018 [facility] Urine Color Straw Urine Appearance Clear Urine Specific [place] 1.008 Low 1.010-1.030 Urine pH 5.0 Normal 5-9 Urine Urobilinogen Negative Negative Urine Ketones Negative Negative Urine Protein Negative Negative Urine Leukocytes Negative Negative Urine Blood 1+ Abnormal Negative Urine Nitrite Negative Negative Urine Bilirubin Negative Negative Urine Glucose 3+(>=500 mg/dL) Abnormal Negative Urine White Blood Cell Absent Absent Urine Red Blood Cell Trace(0-2/hpf) Absent Urine Bacteria Absent Absent Urine Hyaline Casts Present Abnormal Absent 1 Troponin-I testing on Plasma Separator Tubes (PST) has a known false positive rate of 0.20-0.40%. All positive troponins reflex immediately to secondary confirmatory testing. Using the [employer] DxI 800 Access Immunoassay systems, the 99th percentile upper reference limit was demonstrated to be < 0.03 ng/mL. 2 Critical Result LACT:2.5 Called to CHANDU at: 18:18:25 by:[id number] Read back by:CHANDU [facility] Severe Sepsis and Septic Shock Management Bundle Measure requires all lactic acids initially measuring >2.0 mmol/L be repeated. 3 Troponin-I testing on Plasma Separator Tubes (PST) has a known false positive rate of 0.20-0.40%. All positive troponins reflex immediately to secondary confirmatory testing. Using the [employer] DxI 800 Access Immunoassay systems, the 99th percentile upper reference limit was demonstrated to be < 0.03 ng/mL. 4 Because ethnic data is not always readily [...] 15-29 5 Kidney failure <15 (or dialysis) 5 Standard intensity warfarin therapeutic range: 2.0-3.0 High intensity warfarin therapeutic range: 2.5-3.5 6 Because ethnic data is not always [...] (or dialysis) 7 SEE RESULT BELOW Name: CADEAYANNA : [address]: Leonardo Portillo MD Acct: [id number] Unit: [id number] AGE: 64 Location: Re02/20/19 SEX: F Status: DEP ER SPEC: [id number] CHELSEA: 02/20/[address]: Briseyda KUMAR REQ: [id number] RECD: 02/20/19 STATUS: MATTHEW SINGH DR: Long Portillo MD _ SOURCE: FOOT,RIGHT SPDESC: ORDERED: MRSA/SA SSTI, Culture Stain Procedure Result Reported Site MRSA/S. aureus SSTI PCR Final 02/20/19- 1853 ML Organism 1 MRSA NEGATIVE Organism 2 S.AUREUS NEGATIVE Wound/Misc Gram Stain Final 02/20/19- 1741 ML 1+ Epithelial Cells No Neutrophils Observed 1+ Gram Positive Cocci Wound/Misc Culture Final 02/22/19- 4 ML Organism 1 NORMAL CHAPARRO Quantity 1+ * ML - Main Lab . END OF REPORT DEPARTMENT OF PATHOLOGY, [address] [place] [address] Ajit Lamb M.D. Director [facility] # [id number] 8 SEE RESULT BELOW Name: AYANNA MOHAMUD : [address]: Leonardo Portillo MD Acct: [id number] Unit: [id number] AGE: 64 Location: ED Re02/20/19 SEX: F Status: REG ER SPEC: [id number] CHELSEA: 02/20/[address]: Briseyda KUMAR REQ: [id number] RECD: 02/20/19 STATUS: RES FRANCISCO DR: Long Portilol MD _ SOURCE: FOOT,RIGHT SPDESC: ORDERED: Culture Stain Procedure Result Reported Site Wound/Misc Gram Stain Final 02/20/19- 1742 ML 1+ Epithelial Cells No Neutrophils Observed 1+ Gram Positive Cocci Wound/Misc Culture PENDING * ML - Main Lab . END OF REPORT DEPARTMENT OF PATHOLOGY, [address] [place] [address] Ajit Lamb M.D. Director [facility] # [id number] 9 Critical Result LACT:3.0 Called to [id number] at: 18:11:12 by:[id number] Read back by:[id number] [facility] Severe Sepsis and Septic Shock Management Bundle Measure requires all lactic acids initially measuring >2.0 mmol/L be repeated. 10 Because ethnic data is not always readily [...] 15-29 5 Kidney failure <15 (or dialysis) 11 [employer] Expert Fore[employer]: [id number] Standard intensity warfarin therapeutic range: 2.0-3.0 High intensity warfarin therapeutic range: 2.5-3.5 13 Ballistics Expert Forensic: [id number] SEE RESULT BELOW Name: CADEOCA : [address]: Long Calderón MD Acct: [id number] Unit: [id number] AGE: 63 Location: [facility] Re12/06/18 SEX: F Status: REG REF SPEC: [id number] CHEL[place]: 12/06/18-[address] [facility] [address]: Long Calderón MD REQ: [id number] RECD: 12/08/18 STATUS: COMP _ SOURCE: TOE SPDESC: ORDERED: Culture Stain COMMENTS: [id number] copan swab Specimen Description right great toe Procedure Result Reported Site Wound/Misc Gram Stain Final 12/09/18- 0840 ML No Neutrophils Observed 2+ Epithelial Cells No Organisms Seen Wound/Misc Culture Final 12/10/18- 49 ML No Growth Day 2 * ML - Main Lab . END OF REPORT DEPARTMENT OF PATHOLOGY, [address] [place] [address] Ajit Lamb M.D. Director [facility] # [id number] 15 Ballistics Expert Forensic: [id number] 16 Because ethnic data is not always readily [...] 15-29 5 Kidney failure <15 (or dialysis) 17 [facility] Severe Sepsis and Septic Shock Management Bundle Measure requires all lactic acids initially measuring >2.0 mmol/L be repeated. Procedures Date Code Description Status 05/13/2019 49518 Finger Or Heel Stick Completed 12/19/2018 00601 Finger Or Heel Stick Completed 12/06/2018 15660 Finger Or Heel Stick Completed 10/03/2018 [id number] Mammogram Completed 08/14/2016 [id number] Mammogram Completed 10/09/2012 [id number] Mammogram Completed 09/25/2011 [id number] Mammogram Completed 08/17/2009 [id number] Mammogram Completed Medical Devices Description No Information Available Encounters Type Date Location Provider Dx Diagnosis Office Visit 12/06/2018 [facility] Office Long Jonas I48.0 Paroxysmal atrial 9:20a Pili Calderón fibrillation L03.031 Cellulitis of right toe Z79.01 penitentiary (current) use of anticoagulants Assessments Date Code Description Provider 05/30/2019 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 05/13/2019 I48.1 Persistent atrial fibrillation Long Calderón M.D. 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 12/19/2018 I48.1 Persistent atrial fibrillation Long Calderón M.D. 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 12/06/2018 I48.0 Paroxysmal atrial fibrillation Long Calderón M.D. 12/06/2018 L03.031 Cellulitis of right toe Long Calderón M.D. 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 Plan of Treatment Future Appointment(s):06/05/2019 11:30 am - Long Calderón M.D. at Main Deftmq0305/30/2019 - Lyndsay Chester, NPZ79.01 penitentiary (current) use of anticoagulantsNew Labs:Inr (Fma), Ordered: 05/30/19Comments:was 3.9, today down to 3.0 see tracking [id number] Type 2 diabetes mellitus with hyperglycemiaNew Labs:CBC Electronic (Fma New), Ordered: 05/30/19Comments:Recommend yearly diabetic eye and foot exams, and check on blood pressure periodically. Goal blood sugar is less than 140 in the morning or A1c less than 7. will recheck some labs, last urine had some glucose and protein in whzgqS78.30 Lower abdominal pain, unspecifiedNew Labs:CBC Electronic (Fma New), Ordered: Comments:will recheck urine for infection the last UA was not convincing for a UTI since she had a reaction to the Cipro we will discontinue that use tylenol and hot packs over the weekend if pain improving - GREAT! if pain the same on Saturday - we will get a CT of your abdomen if the pain is worsening over theeke - ER to have everything done at a much quicker pace and get you feeling better soonerAllComments:Medication Management Patient Understands medications he 's taking? Yes No Are there Barriers to Adherence? Yes No Has the patient been asked about herbal supplements and therapies, andOT meds? Yes No Care Plan1. Patient has been queried about patient's goals/preferences and functional/lifestyle goals at relevant visits. If relevant, describe: na2. Treatment goals as explained to the patient: above3. Are there barriers to meeting treatment goals? Yes No If Yes, please describe: comorbid conditions, polypharmacy, disease process, drug intolerance 4. Self-Management goals as described to the patient: Yes NoAs always, we strongly encourage a healthy diet and making physical activity a part of your every day life. If you have questions about how or where to start , please contact the office. Functional Status Description No Information Available Mental Status Description No Information Available Referrals Refer to Reason for Referral Status Appt Date Lennox Babcock MD follow up on [place], ? osteoporosis jw Scheduled [address], [place] [address] [phone]
--- OUTSIDE RECORDS SUMMARY | 2019-06-04 01:24 | XMS REPORT | Continuity of Care Document ---
:1955 External Reference #:[id number] Author Name Tawny Mason N.P. (transmitted by agent of provider Angela Leigh) Address [address] [place] [address] Care Team Providers Name Role Phone Long Calderón MD - Family Medicine Care Team Information [employer] Advanced Operator Maintainer [phone] Problems Active Problems Provider Date Granulomatosis with [...] Unknown Never Smoked Cigarettes Smoking Status Reviewed: 05/15/19 Never Smoked Cigarettes ETOH Use Denies alcohol [...] Alvarado, 05/05/2019 20mg Tablets day M.D. Spironolactone 1/2 tab by mouth 90tabs Gin Alvarado, 04/29/2019 25mg every day M.D. Tablets Medihoney Wound/Burn use daily on 1.5ounces Jemal Condon, 02/27/2019 Dressing wound Gel Prednisone take 5 mg daily 1000tabs M31.30 Lennox Babcock, 02/25/2018 1mg Tablets or as directed M.D. Compression Stockings please use daily 2units Lennox Babcock, 02/25/2018 as needed for M.D. Misc leg/foot swelling Omeprazole 1 by mouth every Unknown 20mg [...] Perrin, Capsules N.P. Warfarin Sodium 1 tablet ShallLong rogers, 4mg alternate days Tablets 1/2 tablet as [...] Available Vital Signs Date Vital Result Comment 05/15/2019 10:10am Height 67 inches 5'7" Weight 219.00 lb with shoes Heart Rate 50 /min BP Systolic Sitting 94 mmHg Rue reg cuff BP Diastolic Sitting 60 mmHg Rue reg cuff BP Systolic Standing 90 mmHg Rue reg cuff BP Diastolic Standing 60 mmHg Rue reg cuff BMI (Body Mass Index) 34.3 kg/m2 Ejection Fraction 55-60% date 04/28/19 echo 05/08/2019 9:47am Height 67 inches 5'7" Weight 221.00 lb with shoes Heart Rate 64 /min BP Systolic Sitting 114 mmHg lue reg cuff BP Diastolic Sitting 70 mmHg lue reg cuff BP Systolic Standing 110 mmHg lue reg cuff BP Diastolic Standing 68 mmHg lue reg cuff Respiratory Rate 16 /min BMI (Body Mass Index) 34.6 kg/m2 Ejection Fraction 55-60% echo. 04/28/19 Results Test Date Facility Test Result H/L Range Note Laboratory test [facility] B-Type 71 pg/mL <=100 finding [address] [place] [address] Peptide BNP [phone] Basic Metabolic [facility] Sodium 136 mmol/L Normal 135-145 Panel [address] [place] [address] [phone] Potassium 4.6 mmol/L Normal 3.5-5.0 Chloride 95 mmol/L Low 101-111 Co2 Carbon Dioxide 29 mmol/L Normal 22-32 Anion Gap 12 mmol/L High 2-11 Glucose 328 mg/dL High 70-100 Blood Urea Nitrogen 43 mg/dL High 6-24 Creatinine 1.20 mg/dL High 0.51-0.95 BUN/Creatinine Ratio 35.8 High 8-20 Calcium 9.8 mg/dL Normal 8.6-10.3 Egfr Non- 45.2 >60 Egfr 54.7 >60 1 CBC Auto 05/08/2019 [facility] White Blood 8.6 10^3/uL Normal 3.5-10.[address] [place] [address] [phone] Red Blood Count 5.19 10^6/uL High 3.70-4.87 [...] Blood Cells % 0.1 Laboratory test 01/15/2019 [facility] Surgical SEE RESULT [address] [place] [address] [phone] Laboratory test 01/15/2019 [facility] Point of Care 162 mg/dL High 70-10 [address] Glucose 0 [place] [address] [phone] Inr/Protime 01/15/2019 [facility] Inr 2.61 High 0.82- [address] 1.09 [place] [address] [phone] Laboratory test 01/15/2019 [facility] Point of Care 139 mg/dL High 70-10 [address] Glucose 0 [place] [address] [phone] 1 Because ethnic data is not always [...] (or dialysis) 2 SEE RESULT BELOW Name: CADEAYANNA : [address]: Jemal Condon MD Acct: [id number] Unit: [id number] AGE: 64 Location: OR Re01/15/19 SEX: F Status: JE LEY SPEC: [id number] CHELSEA: 01/15/19- SUBM DR: Jemal Condon MD REQ: [id number] RECD: 01/15/190895 STATUS: SOUT _ ORDERED: Aramal, LEVEL 3, LEVEL 4 ADDENDUM Addendum: Sections [...] paniagua-pink. The skin margin is inked and regional sales representative sections CONTINUED ON NEXT PAGE DEPARTMENT OF PATHOLOGY, [address] [place] [address] Ajit Lamb M.D. Director [facility] # [id number] RUN DATE: 01/22/19 [facility] LAB LIVE PAGE 2 Patient: AYANNA MOHAMUD [id number] (Continued) GROSS DESCRIPTION (Continued) are submitted in cassettes A and B to include bone following decalcification in cassette A. 2. The specimen is received in formalin labeled, Right Knee Ganglion Cyst, and consists of a 5.0 x 3.4 x 1.0 cm paniagua-pink shaggy focally disrupted rubbery unilocular cyst containing paniagua-pink mucus. The specimen is serially sectioned and regional sales representative sections are submitted in one cassette. Signed by and Reported on: Briseyda Conley MD 01/16/19 1341 END OF REPORT DEPARTMENT OF PATHOLOGY, [address] [place] [address] Ajit Lamb M.D. Director [facility] # [id number] 3 Assistant Spa Director: [id number] Standard intensity warfarin therapeutic range: 2.0-3.0 High intensity warfarin therapeutic range: 2.5-3.5 5 Assistant Spa Director: [id number] Procedures Date Code Description Status 05/14/2019 12003 Color Flow Doppler/Interp & Reprt Completed 05/14/2019 13625 Pulse Wave/Continuous-Interp.RPT Completed 05/14/2019 81124 Echocardiography, Transesophageal, Real Time W/Image 2D Completed W/W/O M-M 04/28/2019 58856 ECHO Transthoracic, Real-Time 2D With Doppler And Color Completed Flow 04/28/2019 18832 ECHO Transthoracic, Real-Time 2D With Doppler And Color Completed Flow 04/28/2019 74271 Interrogation Device Eval In Person W/DR Completed Analysis,Single,Dual,Mul 04/28/2019 02561 Interrogation Device Eval In Person W/ Completed Analysis,Single,Dual,Mul 03/09/201963896 Aspiration &/Or Inj Of Ganglion Cyst(S) Any Location Completed 02/27/201947519 Aspiration &/Or Inj Of Ganglion Cyst(S) Any Location Completed 01/15/2019 80498 Amputation,Toe;Interphalangeal Joint Completed 01/15/2019 25063 Excision Lesion Meniscus/Capsule Knee Completed 01/15/2019 56555 Excision Lesion Meniscus/Capsule Knee Completed 01/06/2019 10011 EKG Tracing & Interpretation Completed 12/18/2018 59262 Icd Eval Sing,Dual,Multi Lead Remote Recpt Transm Tech Rev Completed Tech S 12/18/2018 59845 Icd Eval Sing,Dual,Multi Lead Remote Recpt Transm Tech Rev Completed Tech S 12/18/2018 59199 Pacemaker Check Remote Up To 90Days Single,Dual,Multiple Completed Lead 12/18/2018 76790 Pacemaker Check Remote Up To 90Days Single,Dual,Multiple Completed Lead Medical Devices Description No Information Available Encounters Type Date Location Provider Dx Diagnosis Office Visit 05/15/2019 [facility] Tawny Mason, Z95.0 Presence of 10:30a Of Core Worker N.P. cardiac pacemaker R06.02 Shortness of breath I34.0 Nonrheumatic mitral (valve) insufficiency I48.2 Chronic atrial fibrillation I95.89 Other hypotension Office Visit 05/08/2019 10:00a [facility] Tawny Cazares R06.02 Shortness of Of Core Worker Marlon, N.P. breath Z95.0 Presence of cardiac pacemaker I34.0 Nonrheumatic mitral (valve) insufficiency I48.2 Chronic atrial fibrillation Office Visit 05/05/2019 10:00a [facility] Nurse Visit R06.02 Shortness of breath Of Core Worker IC Office Visit 04/24/2019 1:30p [facility] Gin I48.2 Chronic atrial Of Core Worker cailin Alvarado M.D. 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 I48.2 Chronic atrial Of Core Worker Foster, N.P. fibrillation I49.5 Sick sinus syndrome Z95.0 Presence of cardiac pacemaker Office Visit 12/30/2018 10:15a Orthopedic Jemal Condon, Z79.4 predatory animal exterminator Services Of (current) use of C.M.A. insulin [...] Visit 12/09/2018 10:00a Orthopedic Jemal Condon, Z79.4 predatory animal exterminator Services Of (current) use of C.M.A. insulin E11.42 Type 2 diabetes mellitus with diabetic polyneuropathy S91.111S Lac w/o fb of right great toe w/o damage to nail, sequela S92.422D Disp fx of dist phalanx of l great toe, 7thD Office Visit 12/04/2018 [facility] S92.401G Displaced unsp 12:52p Assoc,pc Shortle, BISTRO SERVER fx right great Hospitalists toe, subs for fx w delay heal Office Visit 12/03/2018 [facility] S92.401G Displaced unsp 12:52p Assoc,pc Shortle, BISTRO SERVER fx right great Hospitalists toe, subs for fx w delay heal I48.91 Unspecified atrial fibrillation I50.30 Unspecified diastolic (congestive) heart failure E11.49 Type 2 diabetes w oth diabetic neurological complication 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 fx right [...] to nail, init Office Visit 12/01/2018 12:51p [facility] S92.401G Displaced [facility] Asssarah vidal M.D. 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 Z79.4 residential (current) use of insulin Office Visit 11/30/2018 1:34p Orthopedic Mya Constantino, S92.421A Disp fx of Services Of CAlexandriaAAlyssa Alejandre distal phalanx of right great toe, init E11.42 Type 2 diabetes mellitus with diabetic polyneuropathy S91.111S Lac w/o fb of right great toe w/o damage to nail, sequela A49.9 Bacterial infection, unspecified Office Visit 11/29/2018 [facility] Lewis D. 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 05/15/2019 R06.02 Shortness of breath Tawny Mason, N.P. 05/15/2019 I34.0 Nonrheumatic mitral (valve) Tawny Mason, N.P. insufficiency 05/15/2019 I48.2 Chronic atrial fibrillation Tawny Mason, N.P. 05/15/2019 I95.89 Other hypotension Tawny SAlyssa Mason, N.P. 05/12/2019 S81.801A Unspecified open wound, right lower Aster Hermosillo NP leg, initial encounter 05/12/2019 E11.40 Type 2 diabetes mellitus with Aster Hermosillo NP diabetic neuropathy, unspecifi 05/12/2019 E66.9 Obesity, unspecified Aster Hermosillo NP 05/08/2019 R06.02 Shortness of breath Tawny Mason, N.P. 05/08/2019 Z95.0 Presence of cardiac pacemaker Tawny SAlyssa aMson, N.P. 05/08/2019 I34.0 Nonrheumatic mitral (valve) Tawny Mason N.P. insufficiency 05/08/2019 I48.2 Chronic atrial fibrillation Naty Madsen.Rosales. 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 SAVAGE Izquierdo 03/24/2019 Z47.81 Encounter for orthopedic aftercare SAVAGE Izquierdo following surgical amputa 03/24/2019 M67.461 Ganglion, right knee SAVAGE Izquierdo 03/09/2019 Z47.81 Encounter for orthopedic aftercare Jemal Condon MD following surgical amp 03/09/2019 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 Jemal Condon MD 03/09/2019 M6Dana.461 Gely, right knee Jemal Condon MD 03/04/2019 Z47.81 Encounter for orthopedic aftercare Jemal Conodn MD following surgical amp 03/04/2019 Z89.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 great espinoza Condon MD 03/04/2019 M67.461 Ganglion, right knee Jemal Condon MD 02/27/2019 M67.461 Ganglion, right knee Lupe [place], RPA-C 02/27/2019 Z89.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 great toe Lupe Krissy, RPA-C 02/27/2019 Z47.81 Encounter for orthopedic aftercare Lupe Krissy, RPA-C following surgical amputa 02/18/2019 M67.461 Ganglion, [...] Krissy, RPA-C following surgical amputa 02/06/2019 M67.461 Ganglion, right knee Jemal Condon MD 02/06/2019 Z89.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 great espinoza Condon MD 02/06/2019 Z47.81 Encounter for orthopedic aftercare Jemal Condon MD following surgical amp 01/28/2019 M6Dana.461 Gely, right knee Jemal Condon MD 01/28/2019 Z89.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 debra Condon MD 01/28/2019 Z47.81 Encounter for orthopedic aftercare Jemal Condon MD following surgical amp 01/23/2019 M6Dana.461 Gely, right knee Jemal Condon MD 01/23/2019 [...] Condon MD diabetic neuropathy, unspecifi 01/05/2019 Z79.4 residential (current) use of insulin Jemal Condon MD 01/05/2019 S91.111D Laceration without foreign body of Jemal Condon MD right great toe without d 01/05/2019 M67.461 Gely, right knee Jemal Condon MD 12/30/2018 Z79.4 predatory animal exterminator (current) use of insulin Jemal Condon MD [...] w/o damage to nail, subs 12/16/2018 Z79.4 predatory animal exterminator (current) use of insulin Jemal Condon MD 12/16/2018 E11.40 Type 2 diabetes mellitus with Jemal Condon MD diabetic neuropathy, unsp 12/16/2018 M67.461 Ganglion, right knee Jemal Condon MD 12/09/2018 Z79.4 predatory animal exterminator (current) use of insulin Jemal Condon MD [...] 2 diabetes w oth diabetic Olive Escotochan, BISTRO SERVER neurological complication 12/03/2018 M31.30 Erickson's granulomatosis without Olive Ericka, BISTRO SERVER renal involvement 12/03/2018 Z79.4 residential (current) use of insulin Olive Ericka, BISTRO SERVER 12/02/2018 S92.421D Disp fx of dist phalanx [...] Maegan Armstrong M.D. renal involvement 12/02/2018 Z79.4 predatory animal exterminator (current) use of insulin Maegan Armstrong M.D. [...] E11.40 Type 2 diabetes mellitus with Juan Daivd Mondragon M.D. diabetic neuropathy, unsp 12/01/2018 E11.49 Type 2 diabetes w oth diabetic Maegan Armstrong M.D. neurological complication 12/01/2018 M31.30 Erickson's granulomatosis without Juan David Mondragon M.D. renal involvement 12/01/2018 I48.91 Unspecified atrial fibrillation Maegan Armstrong M.D. 12/01/2018 Z79.52 predatory animal exterminator (current) use of systemic Juan David Mondragon M.D. steroids 12/01/2018 I50.30 Unspecified diastolic (congestive) Maegan Armstrong M.D. heart failure 12/01/2018 M31.30 Erickson's granulomatosis without Maegan Armstrong M.D. renal involvement 12/01/2018 Z79.4 residential (current) use of insulin Maegan Armstrong M.D. [...] Maegan Armstrong M.D. renal involvement 11/30/2018 Z79.4 residential (current) use of insulin Maegan Armstrong M.D. 11/30/2018 S91.111S Laceration without foreign body of Mya Constantino M.D. right great toe without d 11/30/2018 A49.9 to nail, sequela Mya Constantino M.D. 11/29/2018 S92.401G Displaced unsp fx right great toe, Lewis Nguyen M.D.,FACP subs for fx w delay heal 11/29/2018 Z79.4 residential (current) use of insulin Lewis Nguyen M.D., FACP 11/29/2018 E11.49 Type 2 diabetes w oth diabetic Lewis Nguyen M.D., FACP neurological complication 11/29/2018 M31.30 Erickson's granulomatosis without Lewis Nguyen M.D., FACP renal involvement Plan of Treatment Future Appointment(s):06/02/2019 11:30 am - Tawny Mason, N.P. at [facility]05/22/2019 10:15 am - Jemal Condon MD at [facility]07/14/2019 9:45 am - Gin Alvarado M.D. at [facility]02/2019 - Tawny Mason, N.P.Z95.0 Presence of cardiac ctckzcoyyO11.02 Shortness of vpkjtmR57.0 Nonrheumatic mitral (valve) xsfxhgdzlddimF24.2 Chronic atrial yhgdquapizdsH75.89 Other hypotensionFollow up:OV Tawny 2-3 weeks OV 2018Recommendations:HOLD Torsemide today Decrease Atenolol to 1/2 (25mg) tab daily Decrease Spironolactone to 1/2 (25mg)tab daily Check BP at home and call if BP still < 100. Functional Status Description No Information Available Mental Status Description No Information Available Referrals Description No Information Available
--- OUTSIDE RECORDS SUMMARY | 2019-06-04 01:24 | XMS REPORT | Continuity of Care Document ---
:1955 External Reference #:[id number] Author Name Jemal Condon MD (transmitted by agent of provider Fransisca Navarro) Address [address] [place] [address] Care Team Providers Name Role Phone Long Calderón MD - Family Medicine Care Team Information Head Shipper [phone] Problems Active Problems Provider Date Granulomatosis with [...] Unknown Never Smoked Cigarettes Smoking Status Reviewed: 05/22/19 Never Smoked Cigarettes ETOH Use Denies alcohol [...] Perrin, Capsules N.P. Warfarin Sodium 1 tablet Long Calderón, 4mg alternate days MD Tablets 1/2 tablet as directed Buspirone HCL 2 tabs po hs 60tabs Unknown 15mg Tablets Atenolol 1/2 tab by mouth 180tabs Gin Alvarado, 25mg Tablets once a day . M.D. History Medications Keflex 1 tab by mouth [...] Available Vital Signs Date Vital Result Comment 05/22/2019 10:17am Height 67 inches 5'7" Weight 219.00 lb Heart Rate 90 /min BP Systolic 124 mmHg BP Diastolic 78 mmHg Body Temperature 99.0 F Pain Level 0 BMI (Body Mass Index) 34.3 kg/m2 05/15/2019 10:10am Height 67 inches 5'7" Weight 219.00 lb with shoes Heart Rate 50 /min BP Systolic Sitting 94 mmHg Rue reg cuff BP Diastolic Sitting 60 mmHg Rue reg cuff BP Systolic Standing 90 mmHg Rue reg cuff BP Diastolic Standing 60 mmHg Rue reg cuff BMI (Body Mass Index) 34.3 kg/m2 Ejection Fraction 55-60% date 04/28/19 echo Results Test Date Facility Test Result H/L Range Note Laboratory test [facility] B-Type 71 pg/mL <=100 finding [address] [place] [address] Peptide BNP [phone] Basic Metabolic [facility] Sodium 136 mmol/L Normal 135-145 Panel [address] [place] [address] [phone] Potassium 4.6 mmol/L Normal 3.5-5.0 Chloride 95 mmol/L Low 101-111 Co2 Carbon Dioxide 29 mmol/L Normal 22-32 Anion Gap 12 mmol/L High 2-11 Glucose 328 mg/dL High 70-100 Blood Urea Nitrogen 43 mg/dL High 6-24 Creatinine 1.20 mg/dL High 0.51-0.95 BUN/Creatinine Ratio 35.8 High 8-20 Calcium 9.8 mg/dL Normal 8.6-10.3 Egfr Non- 45.2 >60 Egfr 54.7 >60 1 CBC Auto 05/08/2019 [facility] White Blood 8.6 10^3/uL Normal 3.5-10.[address] [place] [address] [phone] Red Blood Count 5.19 10^6/uL High 3.70-4.87 [...] Blood Cells % 0.1 Laboratory test 01/15/2019 [facility] Surgical SEE RESULT [address] [place] [address] [phone] Laboratory test 01/15/2019 [facility] Point of Care 162 mg/dL High 70-10 [address] Glucose 0 [place] [address] [phone] Inr/Protime 01/15/2019 [facility] Inr 2.61 High 0.82- [address] 1.09 [place] [address] [phone] Laboratory test 01/15/2019 [facility] Point of Care 139 mg/dL High 70-10 [address] Glucose 0 [place] [address] [phone] 1 Because ethnic data is not always [...] [address]: Jemal Condon MD Acct: [id number] Unit: [id number] AGE: 64 Location: OR Re01/15/19 SEX: F Status: [facility] SPEC: [id number] CHELSEA: 01/15/19- SUBM DR: Jemal Condon MD REQ: [id number] RECD: 01/15/19 STATUS: SOUT _ ORDERED: Decal, [...] paniagua-pink. The skin margin is inked and desk representative sections CONTINUED ON NEXT PAGE DEPARTMENT OF PATHOLOGY, [address] [place] [address] Ajit Lamb M.D. Director [facility] # [id number] RUN DATE: 01/22/19 [facility] LAB LIVE PAGE 2 Patient: CADEAYANNA [id number] (Continued) GROSS DESCRIPTION (Continued) are submitted in cassettes A and B to include bone following decalcification in cassette A. 2. The specimen is received in formalin labeled, Right Knee Ganglion Cyst, and consists of a 5.0 x 3.4 x 1.0 cm paniagua-pink shaggy focally disrupted rubbery unilocular cyst containing paniagua-pink mucus. The specimen is serially sectioned and desk representative sections are submitted in one cassette. Signed by and Reported on: Briseyda Conley MD 01/16/19 1341 END OF REPORT DEPARTMENT OF PATHOLOGY, [address] [place] [address] Ajit Lamb M.D. Director [facility] # [id number] 3 Battery Container Inspector: [id number] Standard intensity warfarin therapeutic range: 2.0-3.0 High intensity warfarin therapeutic range: 2.5-3.5 5 Battery Container Inspector: [id number] Procedures Date Code Description Status 05/14/2019 70043 Color Flow Doppler/Interp & Reprt Completed 05/14/2019 37462 Pulse Wave/Continuous-Interp.RPT Completed 05/14/2019 32666 Echocardiography, Transesophageal, Real Time W/Image 2D Completed W/W/O M-M 05/12/2019 73591 Treadmill Interp/Report Only Completed 05/12/2019 20281 Stress Test Supervsn W/Out I/R Completed 04/28/2019 72112 ECHO Transthoracic, Real-Time 2D With Doppler And Color Completed Flow 04/28/2019 32269 ECHO Transthoracic, Real-Time 2D With Doppler And Color Completed Flow 04/28/2019 12910 Interrogation Device Eval In Person W/DR Completed Analysis,Single,Dual,Mul 04/28/2019 00611 Interrogation Device Eval In Person W/DR Completed Analysis,Single,Dual,Mul 03/09/201929011 Aspiration &/Or Inj Of Ganglion Cyst(S) Any Location Completed 02/27/2019 16096 Aspiration &/Or Inj Of Ganglion Cyst(S) Any Location Completed 01/15/2019 90830 Amputation,Toe;Interphalangeal Joint Completed 01/15/2019 43455 Excision Lesion Meniscus/Capsule Knee Completed 01/15/2019 60377 Excision Lesion Meniscus/Capsule Knee Completed 01/06/2019 01208 EKG Tracing & Interpretation Completed 12/18/2018 20258 Icd Eval Sing,Dual,Multi Lead Remote Recpt Transm Tech Rev Completed Tech S 12/18/2018 35356 Icd Eval Sing,Dual,Multi Lead Remote Recpt Transm Tech Rev Completed Tech S 12/18/2018 57732 Pacemaker Check Remote Up To 90Days Single,Dual,Multiple Completed Lead 12/18/2018 54628 Pacemaker Check Remote Up To 90Days Single,Dual,Multiple Completed Lead Medical Devices Description No Information Available Encounters Type Date Location Provider Dx Diagnosis Office Visit 05/15/2019 [facility] Tawny Mason, Z95.0 Presence of 10:30a Of International Sales Manager N.P. cardiac pacemaker R06.02 Shortness of breath I34.0 Nonrheumatic mitral (valve) insufficiency I48.2 Chronic atrial fibrillation I95.89 Other hypotension Office Visit 05/12/2019 8:15a Wound Care Aster Zhu E11.622 Type 2 diabetes Center AT [facility] [place] mellitus with other skin ulcer L97.818 Non-prs chronic ulcer oth prt r low leg with oth severity Office Visit 05/10/2019 2:25p [facility] Jesus Landis R06.02 Shortness of Of Jerry Toscano M.D. breath I34.0 Nonrheumatic mitral (valve) insufficiency Office Visit 05/08/2019 10:00a [facility] Tawny Cazares R06.02 Shortness of Of International Sales Manager Marlon, N.P. breath Z95.0 Presence of cardiac pacemaker I34.0 Nonrheumatic mitral (valve) insufficiency I48.2 Chronic atrial fibrillation Office Visit 05/05/2019 10:00a [facility] Nurse Visit R06.02 Shortness of Of International Sales Manager IC breath Office Visit 05/01/2019 10:30a Orthopedic Jemal L97.811 Non-prs chr Services Of Brayden Condon MD ulcer oth prt r low leg limited to brkdwn skin M67.461 Ganglion, right knee Z89.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 great toe Office Visit 04/24/2019 1:30p [facility] Gin Alvarado, I48.2 Chronic atrial Of International Sales Manager M.D. fibrillation Z95.0 Presence of cardiac pacemaker R06.02 Shortness of breath Office Visit 04/17/2019 2:15p Orthopedic Jemal Condon, Z47.81 Encounter for Services Of MD kalyani Owen aftercare following surgical amp Z89.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 great toe M67.461 Ganglion, right knee Office Visit 01/06/2019 9:00a [facility] Tawny S. I48.2 Chronic atrial Of International Sales Manager Foster, N.P. fibrillation I49.5 Sick sinus syndrome Z95.0 Presence of cardiac pacemaker Office Visit 12/30/2018 10:15a Kalyani Condon, Z79.4 exterminator termite Services Of (current) use of C.M.A. insulin E11.40 Type 2 diabetes mellitus with diabetic neuropathy, unsp S91.111D Lac w/o fb of right great toe w/o damage to nail, subs M67.461 Ganglion, right knee Office Visit 12/16/2018 9:00a Kalyani Condon S91.111D Lac w/o fb of Services Of right great C.M.A. toe w/o damage to nail, subs S91.112D Laceration w/o fb of left great toe w/o damage to nail, subs Z79.4 longterm (current) use of insulin E11.40 Type 2 diabetes mellitus with diabetic neuropathy, unsp M67.461 Ganglion, right knee Office Visit 12/09/2018 10:00a Kalyani Condon, Z79.4 longterm Services Of (current) use of C.M.A. insulin E11.42 Type 2 diabetes mellitus with diabetic polyneuropathy S91.111S Lac w/o fb of right great toe w/o damage to nail, sequela S92.422D Disp fx of dist phalanx of l great toe, 7thD Office Visit 12/04/2018 [facility] S92.401G Displaced unsp 12:52p sarah Tim NP fx right great Hospitalists toe, subs for fx w delay heal Office Visit 12/03/2018 Orthopedic Nicolette Domingo, E11.40 Type 2 diabetes 11:57a Services Of Brayden PA mellitus with diabetic neuropathy, unsp L03.032 Cellulitis of left toe Office Visit 12/03/2018 [facility] S92.401G Displaced unsp 12:52p Asssarah vidal NP fx right great Hospitalists toe, subs for fx w delay heal I48.91 Unspecified atrial fibrillation I50.30 Unspecified diastolic (congestive) heart failure E11.49 Type 2 diabetes w oth diabetic neurological complication 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 Z79.4 exterminator termite (current) use of insulin Office Visit 12/01/2018 12:51p [facility] S92.401G Displaced uns Asssarah vidal M.D. 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 Juan David Landis S92.911B Unsp fracture Infectious Pili Mondragon of right Diseases toe(s), init encntr for open fracture L03.031 Cellulitis of right toe E11.40 Type 2 diabetes mellitus with diabetic neuropathy, unsp 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 Z79.52 longterm (current) use of systemic steroids Office Visit 11/30/2018 12:51p [facility] Maegan S92.401G Displaced unsp Assoc,sarah Armstrong M.D. 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 Z79.4 longterm (current) use of insulin Office Visit 11/30/2018 1:34p Orthopedic Mya Constantino, S92.421A Disp fx of Services Of Brayden Alejandre distal phalanx of right great toe, init E11.42 Type 2 diabetes mellitus with diabetic polyneuropathy S91.111S Lac w/o fb of right great toe w/o damage to nail, sequela A49.9 Bacterial infection, unspecified Office Visit 11/29/2018 [facility] Lewis Landis S92.401G Displaced unsp 12:50p Assoc,sarah Nguyen M.D.,FACP fx right great Hospitalists toe, subs for fx w delay heal Z79.4 exterminator termite (current) use of insulin E11.49 Type 2 diabetes w oth diabetic neurological complication 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 Assessments Date Code Description Provider 05/22/2019 S93.492A Sprain of other ligament of left Jemal Condon MD ankle, initial encounter 05/15/2019 Z95.0 Presence of cardiac pacemaker Tawny Mason, N.P. 05/15/2019 R06.02 Shortness of breath Tawny Mason, N.P. 05/15/2019 I34.0 Nonrheumatic mitral (valve) Tawny Mason, N.P. insufficiency 05/15/2019 I48.2 Chronic atrial fibrillation aTwny Mason, N.P. 05/15/2019 I95.89 Other hypotension Tawny Mason, N.P. 05/12/2019 E11.622 Type 2 diabetes mellitus with Aster [place], VISUAL ASSOCIATE other skin ulcer 05/12/2019 L97.818 Non-pressure chronic ulcer of Aster [place], VISUAL ASSOCIATE other part of right lower leg with other specified severity 05/12/2019 R06.02 Shortness of breath Devin Ram MD, [facility] 05/12/2019 R07.9 Chest pain, unspecified Fior Contreras PA-C 05/12/2019 I48.91 Unspecified atrial fibrillation Fior Contreras PA-C 05/11/2019 L97.919 Non-pressure chronic ulcer of Keiry Rivera, VISUAL ASSOCIATE unspecified part of right lower leg with unspecified severity 05/11/2019 I48.91 Unspecified atrial fibrillation Keiry Keenan Doto, VISUAL ASSOCIATE 05/11/2019 R06.02 Shortness of breath Keiry Kenean Doto, VISUAL ASSOCIATE 05/11/2019 R07.9 Chest pain, unspecified Keiry Keenan Doto, VISUAL ASSOCIATE 05/10/2019 R06.02 Shortness of breath Jesus Toscano M.D. 05/10/2019 I34.0 Nonrheumatic mitral (valve) Jesus Toscano M.D. insufficiency 05/10/2019 R06.02 Shortness of breath Lois Recio, PA 05/10/2019 R07.9 Chest pain, unspecified Lois Recio, PA 05/09/2019 R06.02 Shortness of breath Leah Lui, VISUAL ASSOCIATE 05/09/2019 R07.9 Chest pain, unspecified Leah Lui, VISUAL ASSOCIATE 05/08/2019 R06.02 Shortness of breath Tawny Mason, N.P. 05/08/2019 Z95.0 Presence of cardiac pacemaker Tawny Mason N.P. 05/08/2019 I34.0 Nonrheumatic mitral (valve) Tawny Mason N.P. insufficiency 05/08/2019 I48.2 Chronic atrial fibrillation Tawny Mason N.P. 05/05/2019 R06.02 Shortness of breath Nurse Visit IC 05/01/2019 L97.811 Non-pressure chronic ulcer of Jemal Condon MD other part of right lower leg limited to breakdown of skin 05/01/2019 M67.461 Gely, right knee Jemal Condon MD 05/01/2019 Z89.411 [...] right debra Condon MD toe 04/03/2019 M67.461 Gely right anusha Condon MD 03/24/2019 Z89.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 SAVAGE Nielsen toe 03/24/2019 Z47.81 Encounter for orthopedic aftercare SAVAGE Izquierdo following surgical amputa 03/24/2019 M67.461 Gely, right knee Lupe [place]ory, RPA-C 03/09/2019 Z47.81 Encounter for orthopedic aftercare Jemal Condon MD following surgical amp 03/09/2019 Z89.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 debra Condon MD toe 03/09/2019 M67.461 Ganglion, right knee Jemal Condon MD 03/04/2019 Z47.81 Encounter for orthopedic aftercare Jemal Condon MD following surgical amp 03/04/2019 Z89.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 debra Condon MD toe 03/04/2019 M67.461 Ganglion, right knee Jemal Condon MD 02/27/2019 M67.461 Ganglion, right knee Lupe Krissy, RPA-C 02/27/2019 Z89.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 great Lupe [place], RPA-C toe 02/27/2019 Z47.81 Encounter for orthopedic aftercare Lupe Krissy, RPA-C following surgical amputa 02/18/2019 M67.Dheeraj1 Ganglion, right knee Jemal Condon MD 02/18/2019 Z89.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 debra Condon MD toe 02/18/2019 Z47.81 Encounter for orthopedic aftercare Jemal Condon MD following surgical amputa 02/13/2019 M67.461 Ganglion, right knee Lupe Krissy, RPA-C 02/13/2019 Z89.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 great Lupe Krissy, RPA-C toe 02/13/2019 Z47.81 Encounter for orthopedic aftercare Lupe Krissy, RPA-C following surgical amputa 02/06/2019 M67.Dheeraj1 Ganglion, right knee Jemal Condon MD 02/06/2019 Z89.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 debra Condon MD toe 02/06/2019 Z47.81 Encounter for orthopedic aftercare Jemal Condon MD following surgical amp 01/28/2019 M6Dana.Dheeraj1 Ganglion, right knee Jemal Condon MD 01/28/2019 Z89.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 debra Condon MD toe 01/28/2019 Z47.81 Encounter for orthopedic aftercare Jemal Condon MD following surgical amp 01/23/2019 M67.Dheeraj1 Ganglion, right anusha Condon MD 01/23/2019 M20.5x1 Other deformities of [...] Condon MD diabetic neuropathy, unspecifi 01/05/2019 Z79.4 longterm (current) use of insulin Jemal Condon MD 01/05/2019 S91.111D Laceration without foreign body of Jemal Condon MD right great toe without d 01/05/2019 M67.461 Gely, right anusha Condon MD 12/30/2018 Z79.4 exterminator termite (current) use of insulin Jemal Condon [...] damage to nail, subs 12/16/2018 Z79.4 exterminator termite (current) use of insulin Jemal Condon MD 12/16/2018 E11.40 Type 2 diabetes mellitus with Jemal Condon MD diabetic neuropathy, unsp 12/16/2018 M67.461 Ganglion, right knee Jemal Condon MD 12/09/2018 Z79.4 exterminator termite (current) use of insulin Jemal Condon MD 12/09/2018 E11.42 Type 2 diabetes mellitus with Jemal Condon MD diabetic polyneuropathy 12/09/2018 S91.111S Laceration without foreign body of Jemal Condon MD right great toe without d 12/09/2018 S92.422D Displaced fracture of distal Jemal Condon MD phalanx of left great toe, subs 12/04/2018 S92.401G Displaced unsp fx right great toe, Olive Barnett, VISUAL ASSOCIATE subs for fx w delay heal 12/03/2018 E11.40 Type 2 diabetes mellitus with JOSÉ Guerra diabetic neuropathy, unspecifi 12/03/2018 L03.032 Cellulitis of left toe JOSÉ Guerra 12/03/2018 S92.401G Displaced unsp fx right great toe, Olive Barnett, VISUAL ASSOCIATE subs for fx w delay heal 12/03/2018 I48.91 Unspecified atrial fibrillation Olive Barnett VISUAL ASSOCIATE 12/03/2018 I50.30 Unspecified diastolic (congestive) Olive Barnett, VISUAL ASSOCIATE heart failure 12/03/2018 E11.49 Type 2 diabetes w oth diabetic Olive Ericka, VISUAL ASSOCIATE neurological complication 12/03/2018 M31.30 Erickson's granulomatosis without Olive Escotochan, VISUAL ASSOCIATE renal involvement 12/03/2018 Z79.4 longterm (current) use of insulin Olive Ericka, VISUAL ASSOCIATE 12/02/2018 S92.421D Disp fx of dist phalanx of r great Mya Constantino M.D. toe, 7thD 12/02/2018 S92.401G Displaced unsp fx right great toe, Maegan Armstrong M.D. subs for fx w delay heal 12/02/2018 L03.031 Cellulitis of right toe Mya Constantino M.D. 12/02/2018 E11.49 Type 2 diabetes w ot diabetic Maegan Armstrong M.D. neurological complication 12/02/2018 I48.91 Unspecified atrial fibrillation Maegan Armstrong M.D. 12/02/2018 I50.30 Unspecified diastolic (congestive) Maegan Armstrong M.D. heart failure 12/02/2018 M31.30 Erickson's granulomatosis without Maegan Armstrong M.D. renal involvement 12/02/2018 Z79.4 longterm (current) use of insulin Maegan Armstrong M.D. [...] atrial fibrillation Maegan Armstrong M.D. 12/01/2018 Z79.52 longterm (current) use of Juan David Mondragon M.D. systemic steroids 12/01/2018 I50.30 Unspecified diastolic (congestive) Maegan Armstrong M.D. heart failure 12/01/2018 M31.30 Erickson's granulomatosis without Maegan Armstrong M.D. renal involvement 12/01/2018 Z79.4 longterm (current) use of insulin Maegan Armstrong M.D. [...] Maegan Armstrong M.D. renal involvement 11/30/2018 Z79.4 longterm (current) use of insulin Maegan Armstrong M.D. 11/30/2018 S91.111S Laceration without foreign body of Mya Constantino M.D. right great toe without d 11/30/2018 A49.9 to nail, sequela Mya Constantino M.D. 11/29/2018 S92.401G Displaced unsp fx right great toe, Lewis Nguyen M.D.,FACP subs for fx w delay heal 11/29/2018 Z79.4 exterminator termite (current) use of insulin [facility] M.[facility]., [facility] 11/29/2018 E11.49 Type 2 diabetes w oth diabetic Lewis Nguyen M.D., [facility] neurological complication 11/29/2018 M31.30 Erickson's granulomatosis without Lewis Nguyen M.D., [facility] renal involvement Plan of Treatment Future Appointment(s):06/02/2019 11:30 am - Tawny Mason NClarita at [facility]07/14/2019 9:45 am - Gin Alvarado M.D. at [facility]05/22/2019 - Jemal Condon, JOSÉ93.492A Sprain of other ligament of left ankle, initial encounterFollow up:Follow Up: As needed Functional Status Description No Information Available Mental Status Description No Information Available Referrals Description No Information Available
--- OUTSIDE RECORDS SUMMARY | 2019-06-04 01:24 | XMS REPORT | Continuity of Care Document ---
:1955 External Reference #:[id number] Author Name Tawny Mason N.P. (transmitted by agent of provider Mallory Cagle) Address [address] 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 Spironolactone 1 by mouth every 90tabs Gin Alvarado, 04/29/2019 25mg day M.D. Tablets Medihoney Wound/Burn use daily [...] Available Vital Signs Date Vital Result Comment 05/08/2019 9:47am Height 67 inches 5'7" Weight 221.00 lb with shoes Heart Rate 64 /min BP Systolic Sitting 114 mmHg lue reg cuff BP Diastolic Sitting 70 mmHg lue reg cuff BP Systolic Standing 110 mmHg lue reg cuff BP Diastolic Standing 68 mmHg lue reg cuff Respiratory Rate 16 /min BMI (Body Mass Index) 34.6 kg/m2 Ejection Fraction 55-60% echo. 04/28/19 05/05/2019 10:11am Height 67 inches 5'7" Weight 226.00 lb with shoes Heart Rate 64 /min BP Systolic Sitting 108 mmHg R arm reg cuff BP Diastolic Sitting 60 mmHg R arm reg cuff BP Systolic Standing 102 mmHg BP Diastolic Standing 68 mmHg Respiratory Rate 20 /min O2 % BldC Oximetry 94 % rest R/A BMI (Body Mass Index) 35.4 kg/m2 Results Test Date Facility Test Result H/L Range Note Laboratory test [facility] B-Type 71 pg/mL <=100 finding [address] [place] [address] Peptide BNP [phone] Basic Metabolic [facility] Sodium 136 mmol/L Normal 135-145 Panel [address] [place] [address] [phone] Potassium 4.6 mmol/L Normal 3.5-5.0 Chloride 95 mmol/L Low 101-111 Co2 Carbon Dioxide 29 mmol/L Normal 22-32 Anion Gap 12 mmol/L High 2-11 Glucose 328 mg/dL High 70-100 Blood Urea Nitrogen 43 mg/dL High 6-24 Creatinine 1.20 mg/dL High 0.51-0.95 BUN/Creatinine Ratio 35.8 High 8-20 Calcium 9.8 mg/dL Normal 8.6-10.3 Egfr Non- 45.2 >60 Egfr 54.7 >60 1 CBC Auto 05/08/2019 [facility] White Blood 8.6 10^3/uL Normal 3.5-10.[address] [place] [address] [phone] Red Blood Count 5.19 10^6/uL High 3.70-4.87 [...] Blood Cells % 0.1 Laboratory test 01/15/2019 [facility] Surgical SEE RESULT [address] [place] [address] [phone] Laboratory test 01/15/2019 [facility] Point of Care 162 mg/dL High 70-10 [address] Glucose 0 [place] [address] [phone] Inr/Protime 01/15/2019 [facility] Inr 2.61 High 0.82- [address] 1.09 [place] [address] [phone] Laboratory test 01/15/2019 [facility] Point of Care 139 mg/dL High 70-10 [address] Glucose 0 [place] [address] [phone] 1 Because ethnic data is not always [...] [address]: Jemal Condon MD Acct: [id number] Unit: [id number] AGE: 64 Location: OR Re01/15/19 SEX: F Status: DEP [facility] [place] SPEC: [id number] CHELSEA: 01/15/19- SUBM DR: Jemal Condon MD REQ: [id number] RECD: 01/15/197 STATUS: SOUT _ ORDERED: Aramal, LEVEL 3, [...] paniagua-pink. The skin margin is inked and group sales representative sections CONTINUED ON NEXT PAGE DEPARTMENT OF PATHOLOGY, [address] [place] [address] Ajit Lamb M.D. Director [facility] # [id number] RUN DATE: 01/22/19 [facility] LAB LIVE PAGE 2 Patient: AYANNA MOHAMUD [id number] (Continued) GROSS DESCRIPTION (Continued) are submitted in cassettes A and B to include bone following decalcification in cassette A. 2. The specimen is received in formalin labeled, Right Knee Ganglion Cyst, and consists of a 5.0 x 3.4 x 1.0 cm paniagua-pink shaggy focally disrupted rubbery unilocular cyst containing paniagua-pink mucus. The specimen is serially sectioned and group sales representative sections are submitted in one cassette. Signed by and Reported on: Briseyda Conley MD 01/16/19 1341 END OF REPORT DEPARTMENT OF PATHOLOGY, [address] [place] [address] Ajit Lamb M.D. Director [facility] # [id number] 3 Watch Inspector: [id number] Standard intensity warfarin therapeutic range: 2.0-3.0 High intensity warfarin therapeutic range: 2.5-3.5 5 Watch Inspector: [id number] Procedures Date Code Description Status 04/28/2019 77913 ECHO Transthoracic, Real-Time 2D With Doppler And Color Completed Flow 04/28/2019 24030 ECHO Transthoracic, Real-Time 2D With Doppler And Color Completed Flow 04/28/2019 44029 Interrogation Device Eval In Person W/ Completed Analysis,Single,Dual,Mul 04/28/2019 17032 Interrogation Device Eval In Person W/ Completed Analysis,Single,Dual,Mul 03/09/201911780 Aspiration &/Or Inj Of Ganglion Cyst(S) Any Location Completed 02/27/201962436 Aspiration &/Or Inj Of Ganglion Cyst(S) Any Location Completed 01/15/2019 32900 Amputation,Toe;Interphalangeal Joint Completed 01/15/2019 21384 Excision Lesion Meniscus/Capsule Knee Completed 01/15/2019 82899 Excision Lesion Meniscus/Capsule Knee Completed 01/06/2019 22932 EKG Tracing & Interpretation Completed 12/18/2018 65517 Icd Eval Sing,Dual,Multi Lead Remote Recpt Transm Tech Rev Completed Tech S 12/18/2018 12126 Icd Eval Sing,Dual,Multi Lead Remote Recpt Transm Tech Rev Completed Tech S 12/18/2018 83673 Pacemaker Check Remote Up To 90Days Single,Dual,Multiple Completed Lead 12/18/2018 73779 Pacemaker Check Remote Up To 90Days Single,Dual,Multiple Completed Lead Medical Devices Description No Information Available Encounters Type Date Location Provider Dx Diagnosis Office Visit 05/08/2019 [facility] Tawny Mason, R06.02 Shortness of 10:00a Of Salmon Gillnet Vessel Operator N.P. breath Z95.0 Presence of cardiac pacemaker I34.0 Nonrheumatic mitral (valve) insufficiency I48.2 Chronic atrial fibrillation Office Visit 05/05/2019 10:00a [facility] Nurse Visit R06.02 Shortness of breath Of Salmon Gillnet Vessel Operator IC Office Visit 04/24/2019 1:30p [facility] Gin I48.2 Chronic atrial Of Salmon Gillnet Vessel Operator cailin Alvarado M.D. Z95.0 Presence of cardiac pacemaker R06.02 Shortness of breath Office Visit 04/17/2019 2:15p Orthopedic Jemal Condon, Z47.81 Encounter for Services Of orthopedic C.M.A. 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 fibrillation I49.5 Sick sinus syndrome Z95.0 Presence of cardiac pacemaker Office Visit 12/30/2018 10:15a Orthopedic Jemal Condon Z79.4 cubing machine tender Services Of (current) use of C.M.A. insulin [...] toe w/o damage to nail, subs Z79.4 cubing machine tender (current) use of insulin E11.40 Type 2 diabetes mellitus with diabetic neuropathy, unsp M67.461 Ganglion, right knee Office Visit 12/09/2018 10:00a Orthopedic Jemal Condon, Z79.4 cubing machine tender Services Of (current) use of C.M.A. insulin E11.42 Type 2 diabetes mellitus with diabetic polyneuropathy S91.111S Lac w/o fb of right great toe w/o damage to nail, sequela S92.422D Disp fx of dist phalanx of l great toe, 7thD Office Visit 12/04/2018 [facility] S92.401G Displaced unsp 12:52p Assoc,pc Ericka, ARCADE ATTENDANT fx right great Hospitalists toe, subs for fx w delay heal Office Visit 12/03/2018 [facility] S92.401G Displaced unsp 12:52p Assoc,sarah Barnett, ARCADE ATTENDANT fx right great Hospitalists toe, subs for fx w delay heal I48.91 Unspecified atrial fibrillation I50.30 Unspecified diastolic (congestive) heart failure E11.49 Type 2 diabetes w oth diabetic neurological complication 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 diabetic neuropathy, unsp L03.032 Cellulitis of left toe Office Visit 12/02/2018 1:03p Orthopedic Mya Constantino S92.421D Disp fx of Services Of Brayden Alejnadre dist phalanx of r great toe, 7thD L03.031 Cellulitis of right toe Office Visit 12/02/2018 12:51p [facility] S92.401G Displaced unsp Assoc,sarah Armstrong M.D. 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 right great toe w/o damage to nail, init Office Visit 12/01/2018 12:51p [facility] S92.401G [facility],sarah Armstrong M.D. 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 Assocsarah M.D. 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 Lupe Cle Elum, RPA-C 03/24/2019 Z47.81 Encounter for orthopedic aftercare Lupe Rey RPA-C following surgical amputa 03/24/2019 M6Dana.461 Ganglion, right knee Lupe Krissy RPA-C 03/09/2019 Z47.81 Encounter for orthopedic aftercare Jemal Condon MD following surgical amp 03/09/2019 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 Jemal Condon MD 03/09/2019 M6Dana.461 Gely, right knee Jemal Condon MD 03/04/2019 Z47.81 Encounter for orthopedic aftercare Jemal Condon MD following surgical amp 03/04/2019 Z89.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 great espinoza Condon MD 03/04/2019 M6Dana.461 Ganglion, right knee Jemal Condon MD 02/27/2019 M6Dana.461 Ganglion, right knee Lupe Krissy, RPA-C 02/27/2019 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 Lupe Cle Elum, RPA-C 02/27/2019 Z47.81 Encounter for orthopedic aftercare MIRELLA IzquierdoC following surgical amputa 02/18/2019 M6Juan Carlos461 Gely, right knee Jemal Condon MD 02/18/2019 Z89.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 great espinoza Condon MD 02/18/2019 Z47.81 Encounter for orthopedic aftercare Jemal Condon MD following surgical amputa 02/13/2019 M67.461 Ganglion, right knee SAVAGE Izquierdo 02/13/2019 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 SAVAGE Izquierdo 02/13/2019 Z47.81 Encounter for orthopedic aftercare SAVAGE Izquierdo following surgical amputa 02/06/2019 M67.461 Gely, right [...] (acquired), right foot 01/20/2019 M67.461 Gely, right anusha Condon MD 01/20/2019 M20.5x1 Other deformities of toe(s) Jemal Condon MD (acquired), right foot 01/15/2019 M20.5x1 Other deformities of toe(s) SAVAGE Izquierdo (acquired), right foot 01/15/2019 M20.5x1 Other deformities of toe(s) Jemal Condon MD (acquired), right foot 01/15/2019 M67.461 Gely, right anusha Condon MD 01/15/2019 M86.671 Other chronic osteomyelitis, [...] Condon MD diabetic neuropathy, unspecifi 01/05/2019 Z79.4 cubing machine tender (current) use of insulin Jemal Condon MD 01/05/2019 S91.111D Laceration without foreign body of Jemal Condon MD right great toe without d 01/05/2019 M67.461 Ganglion, right knee Jemal Condon MD 12/30/2018 Z79.4 cubing machine tender (current) use of insulin Jemal Condon MD [...] w/o damage to nail, subs 12/16/2018 Z79.4 long-term (current) use of insulin Jemal Condon MD 12/16/2018 E11.40 Type 2 diabetes mellitus with Jemal Codnon MD diabetic neuropathy, unsp 12/16/2018 M67.461 Ganglion, right knee Jemal Condon MD 12/09/2018 Z79.4 long-term (current) use of insulin Jemal Condon MD 12/09/2018 E11.42 Type 2 diabetes mellitus with Jemal Condon MD diabetic polyneuropathy 12/09/2018 S91.111S Laceration without foreign body of Jemal Condon MD right great toe without d 12/09/2018 S92.422D Displaced fracture of distal phalanx Jemal Condon MD of left great toe, subs 12/04/2018 S92.401G Displaced unsp fx right great toe, Olive Shortchan, ARCADE ATTENDANT subs for fx w delay heal 12/03/2018 E11.40 Type 2 diabetes mellitus with JOSÉ Guerra diabetic neuropathy, unspecifi 12/03/2018 L03.032 Cellulitis of left toe JOSÉ Guerra 12/03/2018 S92.401G Displaced unsp fx right great toe, Olive Shortle, ARCADE ATTENDANT subs for fx w delay heal 12/03/2018 I48.91 Unspecified atrial fibrillation Olive Ericka, ARCADE ATTENDANT 12/03/2018 I50.30 Unspecified diastolic (congestive) Olive Barnett, ARCADE ATTENDANT heart failure 12/03/2018 E11.49 Type 2 diabetes w oth diabetic Olive Barnett, ARCADE ATTENDANT neurological complication 12/03/2018 M31.30 Erickson's granulomatosis without Olive Barnett, ARCADE ATTENDANT renal involvement 12/03/2018 Z79.4 long-term (current) use of insulin Olive Ericka, ARCADE ATTENDANT 12/02/2018 S92.421D Disp fx of dist phalanx [...] Maegan Armstrong M.D. renal involvement 12/02/2018 Z79.4 long-term (current) use of insulin Maegan Armstrong M.D. [...] atrial fibrillation Maegan Armstrong M.D. 12/01/2018 Z79.52 long-term (current) use of systemic Juan David Mondragon M.D. steroids 12/01/2018 I50.30 Unspecified diastolic (congestive) Maegan Armstrong M.D. heart failure 12/01/2018 M31.30 Erickson's granulomatosis without Maegan Armstrong M.D. renal involvement 12/01/2018 Z79.4 cubing machine tender (current) use of insulin Maegan Armstrong M.D. [...] Maegan Armstrong M.D. renal involvement 11/30/2018 Z79.4 long-term (current) use of insulin Maegan Armstrong M.D. 11/30/2018 S91.111S Laceration without foreign body of Mya Constantino M.D. right great toe without d 11/30/2018 A49.9 to nail, sequela Mya Constantino M.D. 11/29/2018 S92.401G Displaced unsp fx right great toe, Lewis Nguyen M.D.,FACP subs for fx w delay heal 11/29/2018 Z79.4 long-term (current) use of insulin Lewis Nguyen M.D., FACP 11/29/2018 E11.49 Type 2 diabetes w oth diabetic Lewis Nguyen M.D., FACP neurological complication 11/29/2018 M31.30 Erickson's granulomatosis without Lewis Nguyen M.D., FACP renal involvement Plan of Treatment Future Appointment(s):05/22/2019 10:15 am [facility] 9:45 am - Gin Alvarado M.D. at [facility]05/08/2019 - Tawny Mason, N.P.R06.02 Shortness of breathNew Xrays: Chest PA & Lat 2 VWS, Ordered: 05/08/19Follow up:OV Tawny 1 weeks reassess fluid/bp OV LS 1 month after TEERecommendations:May be from your valve. Take 3 tabs of torsemide today Hold spironolactone. Tomorrow resume 2 tabs torsemide; 1 tab vnxtqgmhvebmzwA01.0 Presence of cardiac tunvnulcvQ44.0 Nonrheumatic mitral (valve) insufficiencyNew Orders:Transesophageal Echocardiogram, Ordered: 05/08/19Recommendations:Leakage in valve has increased. We will check GARETH to twexjyY79.2 Chronic atrial fibrillation Functional Status Description No Information Available Mental Status Description No Information Available Referrals Description No Information Available
--- OUTSIDE RECORDS SUMMARY | 2019-06-04 01:24 | XMS REPORT | Continuity of Care Document ---
:1955 External Reference #:[id number] Author Name Joleen Stern NP Address [address] [place] [address] Care Team Providers Name Role Phone [facility] - Endocrinology, Care Team Information Attending Anesthesiologist Diabetes & Metabolism [facility] Physical Care Team Information Attending Anesthesiologist Therapy - Physical Therapy Problems Active Problems [...] Patient has never smoked Smoking Status Reviewed: 08/28/18 Patient has never smoked Allergies, Adverse Reactions, Alerts Active Allergies Reaction Severity Comments Date Albuterol 01/30/2008 Bactrim 01/30/2008 Codeine 01/30/2008 Hydrocodone/Apap Nausea and Vomiting, HEADACHE,RAPID 11/23/2008 HEART BEAT Lyrica 02/05/2014 Metformin excessive diarrhea 02/05/2014 Medications Active Medications SIG Qnty Indications Ordering Date Provider Cipro take one by 14tabs N39.0 Joleen C. 05/28/2019 500mg Tablets mouth twice Jarred REGULATORY SERVICES CONSULTANT daily for 7 days Buspirone HCL Take 1 Tablet By 60tabs Long F. 11/11/2018 15mg Mouth Twice Pili Calderón Tablets Daily Diflucan 1 by mouth times 2tabs Long F. 11/11/2018 150mg Tablets 1 day, january Pili Calderón repeat in 5-7d Prednisone 1 po qd 135tabs J44.0 Long F. 2018 5mg Tablets Pili Calderón Flonase Allergy Relief 1 spray to each 1Mdi J44.0 Lennox Maier 2018 nostril every MD Erendira 50mcg/Act Suspension day Invokana Take 1 Tablet By 90tabs Long F. 10/17/2017 300mg Tablets Mouth Once Daily Pili Calderón For Type II Diabetes Ipratropium [place] 1 unit dose four 62.500ml Long FAlyssa 04/12/2016 0.02% times a day as Pili Calderón Solution directed dx.r06.02 last seen 04/10/16 Mometasone Furoate apply three 45gm Long FAlyssa 04/10/2016 0.1% times a day as Pili Calderón Cream needed Humalog inject 20 units 30ml Long F. 10/16/2014 100Unit/ML before each meal Pili Calderón Solution and at bedtime. take an extra 4 units for readings over 300. (max 90 unts daily) Lisinopril Take 1 Tablet By 180tabs I10 Long FAlyssa 10/26/2013 5mg Tablets Mouth Twice Pili Calderón Daily Warfarin Sodium 1 po qod, 1/2 po 30tabs Long FAlyssa 11/06/2012 4mg qod Shallish, M.D. Tablets Xopenex use qd - qid in 1box 461.9 Long F. 07/28/2012 1.25mg/3ML nebulizer for Pili Calderón Nebulizer sob/cough/ wheeze Omeprazole Take 1 Capsule 180caps Long FAlyssa 04/25/2011 20mg Capsules By Mouth Twice Pili Calderón DR Daily Oxygen Therapy 2 L prn Long Jonas Pili Calderón Atenolol 1 po bid 90tabs I48.0 Unknown 25mg Tablets Gabapentin 1 po bid 270caps Long F. 300mg Capsules Pili Calderón Klor-Con M20 take two tablets 180tabs I10 Long FAlyssa 20Meq by mouth once Pili Calderón Tablets ER daily Victoza 1.8 mg under the samples Long FAlyssa 18mg/3ML Solution skin daily as Pili Calderón Pen-Inject directed Relion Insulin before meals & 120units Long FAlyssa Syringe/U-100/0.3ML/31 every night at Pili Calderón G X 5/16" bedtime as 31G X 516" 0.3 directed w/ ML [facility] [place]og - dx: e11.65 - last seen 01/09/18 Toujeo Solostar 40 units q hs Unknown 300Unit/ML Solution Pen-Inject Spironolactone 1 by mouth every Unknown 25mg day Tablets Furosemide 1 by mouth every Unknown 20mg Tablets day History Medications [facility] Joleen Stern, 05/28/2019 - Tablets REGULATORY SERVICES CONSULTANT 05/28/2019 Augmentin 1 by mouth twice 14tabs Long FAlyssa Calderón, 12/06/2018 - 875-125mg a day x 7 days M.DAlyssa 12/15/2018 Tablets Immunizations CPT Code Status Date Vaccine Lot # [id number] Given 08/28/2018 High-Dose, Influenza Virus Vacccine-fluzone 65 and [id number] older 02873 Given 07/04/2017 High-Dose, Influenza Virus Vacccine-fluzone 65 and [id number] older 09526 Given 07/16/2016 Pneumococcal Immunization [id number] Given 07/16/2016 Influenza Vac, Quadrivalent, Slit Virus, Im [id number] Given 06/01/2010 DO Not Use Split Influenza Virus Vaccine Vital Signs Date Vital Result Comment 05/28/2019 11:23am BP Systolic 118 mmHg BP Diastolic 66 mmHg Heart Rate 72 /min Body Temperature 98.4 F Respiratory Rate 16 /min Weight 220.00 lb 12/06/2018 9:09am BP Systolic 102 mmHg BP Diastolic 64 mmHg Heart Rate 80 /min Body Temperature 97.3 F Respiratory Rate 16 /min Weight 221.00 lb Results Test Date Facility Test Result H/L Range Note Laboratory test 05/13/2019 [facility] (Fma) 2.0 2.0-3.0 finding (607)- - Laboratory test 05/09/2019 [facility] Troponin I 0.01 ng/mL <0.04 1 finding CBC Auto Diff 05/09/2019 [facility] White Blood 10.9 10^3/uL High 3.5-10.8 Count Red Blood Count 5.46 10^6/uL High 3.70-4.87 [...] % Nucleated Red Blood Cells % 0.0 Inr/Protime 05/09/2019 [facility] Inr 3.38 High 0.82-1.09 2 Comp Metabolic Panel 05/09/2019 [facility] Sodium 132 mmol/L Low 135-145 Potassium 3.7 [...] Egfr Non- 36.4 >60 Egfr 44.0 >60 3 Laboratory test finding 05/09/2019 [facility] Troponin I 0.00 ng/mL <0.04 4 Lactic Acid 2.5 mmol/L Critical high 0.5-2.0 5 B-Type Natriuretic Peptide BNP 90 pg/mL <=100 CBC Auto Diff 05/08/2019 [facility] White Blood Count 8.6 10^3/uL Normal 3.5- [...] Cells % 0.1 Basic Metabolic Panel 05/08/2019 [facility] Sodium 136 mmol/L Normal 135-145 Potassium 4.6 [...] Egfr 54.7 >60 6 Laboratory test 05/08/2019 [facility] B-Type Natriuretic 71 pg/mL <=100 finding Peptide BNP Laboratory test 02/20/2019 [facility] MRSA/S. aureus Ssti SEE RESULT BELOW 7 finding PCR Wound Culture/Sensi 02/20/2019 [facility] Wound/Misc SEE RESULT BELOW 8 Culture-Gram Stain Laboratory test 02/20/2019 [facility] C Reactive Protein 9.30 mg/L High <8.01 finding Lactic Acid 3.0 mmol/L Critical high 0.5-2.0 9 Comp Metabolic Panel 02/20/2019 [facility] Sodium 138 mmol/L Normal 135-145 Potassium 4.6 [...] Non- 62.2 >60 Egfr 75.3 >60 10 CBC Auto Diff 02/20/2019 [facility] White Blood Count 10.4 10^3/uL Normal 3.5- [...] Blood Cells % 0.1 Laboratory test 01/15/2019 [facility] Point of Care 162 mg/dL High 70-100 11 finding Glucose Inr/Protime 01/15/2019 [facility] Inr 2.61 High 0.82-1.09 12 Laboratory test 01/15/2019 [facility] Point of Care 139 mg/dL High 70-100 13 finding Glucose Laboratory test 12/19/2018 [facility] (Fma) 2.4 2.0-3.0 finding (607)- - Wound 12/06/2018 [facility] Wound/Misc SEE RESULT 14 Culture/Sensi Culture-Gram BELOW Stain Laboratory test 12/06/2018 [facility] (Fma) 2.1 2.0-3.0 finding (607)- - Laboratory test 11/29/2018 [facility] Point of Care 176 mg/dL High 70-100 15 finding Glucose Comp Metabolic 11/29/2018 [facility] Sodium 137 mmol/L Normal 135-145 Panel Potassium [...] 86.4 >60 16 Laboratory test finding 11/29/2018 [facility] C Reactive Protein 13.04 mg/L High <8.01 Lactic Acid 1.9 mmol/L Normal 0.5-2.0 17 CBC Auto Diff 11/29/2018 [facility] White Blood Count 9.1 10^3/uL Normal 3.5- [...] Color Straw Urine Appearance Clear Urine Specific [place] 1.008 Low 1.010-1.030 Urine pH 5.0 Normal [...] immediately to secondary confirmatory testing. Using the Bioapter Access Immunoassay systems, the 99th percentile upper reference limit was demonstrated to be < 0.03 ng/mL. 2 Standard intensity warfarin therapeutic range: 2.0-3.0 High intensity warfarin therapeutic range: 2.5-3.5 3 Because ethnic data is not always readily [...] 15-29 5 Kidney failure <15 (or dialysis) 4 Troponin-I testing on Plasma Separator Tubes (PST) has a known false positive rate of 0.20-0.40%. All positive troponins reflex immediately to secondary confirmatory testing. Using the fl3ur DxI 800 Access Immunoassay systems, the 99th percentile upper reference limit was demonstrated to be < 0.03 ng/mL. 5 Critical Result LACT:2.5 Called to [id number] at: 18:18:25 by:[id number] Read back by:[id number] [facility] Severe Sepsis and Septic Shock Management Bundle Measure requires all lactic acids initially measuring >2.0 mmol/L be repeated. 6 Because ethnic data is not always [...] [address]: Leonardo Portillo MD Acct: [id number] Unit: [id number] AGE: 64 Location: ED Re02/20/19 SEX: F Status: DEP ER SPEC: [id number] [place]: 02/20/[address]: Briseyda KUMAR REQ: [id number] RECD: 02/20/19 STATUS: MATTHEW SINGH DR: Long Portillo MD _ SOURCE: FOOT,RIGHT SPDES: ORDERED: MRSA/SA SSTI, Culture Stain Procedure Result Reported Site MRSA/S. aureus SSTI PCR Final 02/20/19- 1854 ML Organism 1 MRSA NEGATIVE Organism 2 S.AUREUS NEGATIVE Wound/Misc Gram Stain Final 02/20/19- 1741 ML 1+ Epithelial Cells No Neutrophils Observed 1+ Gram Positive Cocci Wound/Misc Culture Final 02/22/19- 1144 ML Organism 1 NORMAL CHAPARRO Quantity 1+ * ML - Main Lab . END OF REPORT DEPARTMENT OF PATHOLOGY, [address] [place] [address] Ajit Lamb M.D. Director [facility] # [id number] 8 SEE RESULT BELOW Name: AYANNA MOHAMUD : [address]: Leonardo Portillo MD Acct: [id number] Unit: [id number] AGE: 64 Location: ED Re02/20/19 SEX: F Status: REG ER SPEC: [id number] CHELSEA: 02/20/[address]: Briseyda KUMAR REQ: [id number] RECD: 02/20/19 STATUS: RES FRANCISCO DR: Long Portillo MD _ SOURCE: FOOT,RIGHT SPDESC: ORDERED: Culture Stain Procedure Result Reported Site Wound/Misc Gram Stain Final 02/20/19- 1742 ML 1+ Epithelial Cells No Neutrophils Observed 1+ Gram Positive Cocci Wound/Misc Culture PENDING * ML - Main Lab . END OF REPORT DEPARTMENT OF PATHOLOGY, [address] [place] [address] Ajit Lamb M.D. Director [facility] # [id number] 9 Critical Result LACT:3.0 Called to [id number] at: 18:11:12 by:[id number] Read back by:[id number] [facility] Severe Sepsis and Septic Shock Management Bundle [...] 5 Kidney failure <15 (or dialysis) 11 Hydraulic Punch Press Operator: [id number] 12 Standard intensity warfarin therapeutic range: 2.0-3.0 High intensity warfarin therapeutic range: 2.5-3.5 13 Hydraulic Punch Press Operator: [id number] 14 SEE RESULT BELOW Name: AYANNA MOHAMUD : [address]: Long Calderón MD Acct: [id number] Unit: [id number] AGE: 63 Location: [facility] Re12/06/18 SEX: F Status: REG REF SPEC: [id number] [place]: 12/06/18-[address] [facility] [address]: Long Calderón MD REQ: [id number] RECD: 12/08/18 STATUS: COMP _ SOURCE: TOE SPDESC: ORDERED: Culture Stain COMMENTS: [id number] copan swab Specimen Description right great toe Procedure Result Reported Site Wound/Misc Gram Stain Final 12/09/18- 0840 ML No Neutrophils Observed 2+ Epithelial Cells No Organisms Seen Wound/Misc Culture Final 12/10/18- 0849 ML No Growth Day 2 * ML - Main Lab . END OF REPORT DEPARTMENT OF PATHOLOGY, [address] [place] [address] Ajit Lamb M.D. Director [facility] # [id number] 15 Hydraulic Punch Press Operator: [id number] 16 Because ethnic data is not always [...] 5 Kidney failure <15 (or dialysis) 17 [facility] Severe Sepsis and Septic Shock Management Bundle Measure requires all lactic acids initially measuring >2.0 mmol/L be repeated. Procedures Date Code Description Status 05/13/2019 25333 Finger Or Heel Stick Completed 12/19/2018 00041 Finger Or Heel Stick Completed 12/06/2018 68994 Finger Or Heel Stick Completed 10/03/2018 [id number] Mammogram Completed 08/14/2016 52215295 Mammogram Completed 10/09/2012 70029495 Mammogram Completed 09/25/2011 94952472 Mammogram Completed 08/17/2009 [id number] Mammogram Completed Medical Devices Description No Information Available Encounters Type Date Location Provider Dx Diagnosis Office Visit 12/06/2018 [facility] Long Jonas I48.0 Paroxysmal atrial 9:20a Pili Calderón fibrillation L03.031 Cellulitis of right toe Z79.01 emt intermediate (current) use of anticoagulants Assessments Date Code Description Provider 05/28/2019 N39.0 Urinary tract infection, site not specified Joleen Stern, JOSHUA 05/28/2019 E11.65 Type 2 diabetes mellitus with hyperglycemia Joleen Stern NP 05/28/2019 Z79.01 emt intermediate (current) use of anticoagulants Joleen Stern NP 05/13/2019 Z79.01 alf (current) use of anticoagulants Long Calderón M.D. 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 05/13/2019 I48.1 Persistent atrial fibrillation Long Calderón M.D. 12/19/2018 Z79.01 emt intermediate (current) use of anticoagulants Long Calderón M.D. 12/19/2018 I48.1 Persistent atrial fibrillation Long Calderón M.D. 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 12/06/2018 I48.0 Paroxysmal atrial fibrillation Long Calderón M.D. 12/06/2018 L03.031 Cellulitis of right toe Long Calderón M.D. 12/06/2018 Z79.01 alf (current) use of anticoagulants Long Calderón M.D. Plan of Treatment 05/28/2019 - Joleen Stern, JOSHUAN39.0 Urinary tract infection, site not specifiedNew Medication:Cipro 500 mg - take one by mouth twice daily for 7 daysNew Labs:Ua - Non Micro (Fma), Ordered: 05/28/19Inr (Fma), Ordered: Comments:If you are not improved within 48 hours please call or write to let me know.E11.65 Type 2 diabetes mellitus with hyperglycemiaNew Labs:Hemoglobin A1c (Fma), Ordered: 05/28/19Z79.01 emt intermediate (current) use of anticoagulantsAllComments:1. Patient has been queried about patient's goals/ preferences and functional/lifestyle goals at relevant visits. If relevant, describe: Has been discussed, noted above2. Treatment goals as explainedto the patient: see above3. Are there barriers to meeting treatment goals? Yes If Yes, please describe: Barriers include possible insurance limits, disease process, and difficulty with lifestyle changes4. Self-Management goals as described to the patient: Yes, see above As always, we strongly encourage a healthy diet and making physical activity a part of your every day life. If you have questions about how or where to start, please contact the office. Functional Status Description No Information Available Mental Status Description No Information Available Referrals Refer to Reason for Referral Status Appt Date Lennox Babcock MD follow up on [place], ? osteoporosis jw Scheduled [address], [place] [address] [phone]
[2019-06-04] MEDS: Heparin VIAL(*) 5000 UNITS/ML VIAL (FIVE THOUSAND) IV ONE ×2 (01:25→02:01)
--- OUTSIDE RECORDS SUMMARY | 2019-06-04 01:25 | XMS REPORT | Summary of Care ---
:1955 Author Organization [facility] Address [address] [facility] [place] [address] Care Team Providers Name Role Phone Long Calderón MD Primary Care Provider Reason for Visit Reason Comments Diabetes Mellitus Pt reports checking blood sugar 6x daily. No logs Follow Up Encounter Details Date Type Department Care Team Description 05/13/2019 Office Visit [facility] [place], Uncontrolled type [address] [facility] [place] [address] [address] [facility] complication, with [phone] [place] [address] long-term current use [phone] of insulin ([facility]) (Primary Dx) Allergies Active Allergy Reactions Severity Noted Date Comments Albuterol 11/11/2008 Bactrim 11/11/2008 Lantus Swelling 03/31/2019 Codeine 11/11/2008 Hydrocodone Other 11/11/2008 Nausea vs. Low blood pressure Lyrica Other 12/01/2013 [place] funny Metformin GI Reaction 08/18/2012 documented as of this encounter (statuses as of 05/13/2019) Medications Medication Sig Dispensed Refills Start Date End Date Status lisinopril Take 1 Tab by 0 Active (PRINIVIL, ZESTRIL) mouth DAILY. 5 MG Oral Tab potassium chloride Take 1 Tab by 0 Active (MICRO-K) 20 MEQ mouth DAILY. Oral Tab CR atenolol (TENORMIN) Take 1 Tab by 0 Active 25 MG Oral Tab mouth TWICE DAILY. warfarin (COUMADIN) Take 4 mg by 0 Active 5 MG Oral Tab mouth DAILY. Alternates 4 mg and 2 mg every other day predniSONE Take 5 mg by 0 Active (DELTASONE) 1 MG mouth DAILY. Oral Tab Omeprazole Take by mouth. 0 Active (PRILOSEC PO) Insulin 1 Each by Does 500 Each 3 06/02/2015 Active Syringe-Needle not apply route U-100 (BD INSULIN FIVE TIMES SYRINGE ULTRAFINE) DAILY. 31G X 5/16" 1 ML Does not apply MiscIndications: Type 2 diabetes mellitus with complication ([facility]) Insulin Pen Needle 1 Each by Does 100 Each 3 06/02/2015 Active 32G X 4 MM Does not not apply route apply DIRECTED. MiscIndications: Type 2 diabetes mellitus with complication (HCC) Glucose Blood (TRUE 1 Each by In 0 Active METRIX BLOOD Vitro route SIX GLUCOSE TEST) In TIMES DAILY. Vitro Strip E11.9 test 6 times daily True Metrix test strips Insulin Lispro Inject 20 Units 0 Active (HUMALOG) 100 beneath the skin UNIT/ML THREE TIMES Subcutaneous DAILY. Sliding Solution Cartridge scale Canagliflozin Take 300 mg by 0 Active (INVOKANA) 100 MG mouth DAILY. Oral Tab clotrimazole-betame Apply to area as 45 g 3 06/12/2017 Active thasone (LOTRISONE) needed 1-0.05 % Apply externally CreamIndications: Type 2 diabetes mellitus with complication, unspecified [facility] insulin use status gabapentin Take 2 Caps by 720 Cap 3 12/11/2017 Active (NEURONTIN) 300 MG mouth FOUR TIMES Oral DAILY. CapIndications: Type 2 diabetes mellitus with complication, with long-term current use of insulin ([facility]) clotrimazole-betame APPLY CREAM 45 Each 3 05/19/2018 Active thasone (LOTRISONE) TOPICALLY TO 1-0.05 % Apply AFFECTED AREA externally NEEDED CreamIndications: Type 2 diabetes mellitus with complication (HCC) diclofenac 4 g by Topical 1 Tube 3 11/25/2018 Active (VOLTAREN) 1 % route FOUR TIMES Transdermal Gel DAILY. VICTOZA 18 MG/3ML INJECT 1.8 MG 9 Each 4 01/07/2019 Active Subcutaneous BENEATH THE SKIN Solution DAILY Pen-injector torsemide (DEMADEX) Take 20 mg by 0 Active 20 MG Oral Tab mouth DAILY. LASIX 40 MG Oral Take 1 Tab by 0 Discontinued Tab mouth DAILY. 9 Insulin NPH, Inject 15 Units 15 mL 3 03/31/2019 Discontinued Human,, Isophane, beneath the skin 9 100 UNIT/ML TWICE DAILY. 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 Atrial fibrillation 07/20/2008 Palpitations 07/20/2008 Shortness of breath 07/20/2008 DM (diabetes mellitus) Overview: dx 1994, insulin since documented as of this encounter (statuses as of 05/13/2019) Social History Tobacco Use Types Packs/Day Years [...] Sign Reading Time Taken Comments Blood Pressure 130/70 05/13/2019 11:28 AM EDT Pulse 86 05/13/2019 11:28 AM EDT Temperature - - Respiratory Rate - - Oxygen Saturation - - Inhaled Oxygen Concentration - - Weight - - Height - - Body Mass Index - - documented in this encounter Patient Instructions Patient InstructionsGeno Kang FNP - 05/13/2019 11:20 AM EDTNPH 20 units twice daily Call blood sugars weekly [phone] signed by Geno Kang FNP at 05/13/2019 11:43 AM EDT documented in this encounter Progress Notes Geno Kang FNP - 05/13/2019 11:20 AM EDT NAME: Ayanna Leon : 1955 DATE: 05/13/2019 SUBJECTIVE: Ayanna Leon is a 64-y.o. female is here for a follow-up for her Diabetes Mellitus type 2 uncontrolled for >10 years. Seen today at her request. A1C remains elevated at 9.2. She has tried multipleinsulins and had "intolerance" Toujeo, levemir, NPH and lantus cause distal edema. She was recently hospitalized with CHF. Diuretics adjusted. She feels, with the diuresis going well, she will re-try basal insulin. She adheres to diet. Activity limited by chronic pain. Denies any episode of hypoglycemia requiring assistance. Is current on opthalmologic exam. History of retinopathy. Has distal neuropathy. Currently left foot booted due to fractured toe. Normal GFR despite erickson's on steroids. Current medications, allergies, and all history have been reviewed. [...] skin THREE TIMES DAILY. Sliding scale Insulin Pen Needle 32G X 4 MM Does not apply Misc 1 Each by Does not apply route DIRECTED. Insulin Syringe-Needle U-100 (BD INSULIN SYRINGE ULTRAFINE) 31G X 5/16" 1 ML Does not apply Misc 1 Each by Does not apply route FIVE TIMES DAILY. lisinopril (PRINIVIL, ZESTRIL) 5 MG Oral Tab Take 1 Tab by mouth DAILY. Omeprazole (PRILOSEC PO) Take by mouth. potassium chloride (MICRO-K) 20 MEQ Oral Tab CR Take 1 Tab by mouth DAILY. predniSONE (DELTASONE) 1 MG Oral Tab Take 5 mg by mouth DAILY. torsemide (DEMADEX) 20 MG Oral Tab Take 20 mg by mouth DAILY. VICTOZA 18 MG/3ML [...] Nausea vs. Low blood pressure Lyrica Other [place] funny Metformin GI Reaction Past Medical History: [...] file Gets together: Not on file Attends moravian service: Not on file Active member of [...] Problem Relation Age of Onset Heart Mother CT at age 69 Diabetes Mother Heart Disease Mother Heart Brother CT at age 45 Diabetes Brother Heart Disease Brother Emphysema Father at age 78 OBJECTIVE: Blood pressure 130/70, pulse 86. BP 130/70 | Pulse 86 General: no distress. Eyes: conjunctiva pink Neck: [...] retinopathy and neuropathy controlling her blood sugars. Restart NPH Continue Regular insulin Call me blood sugars weekly 2. Hypertension Acceptable control 3. Neuropathy stable 5. Retinopathy Per ophthalmology No follow-ups on file. J[facility] Section of Endocrinology 05/13/2019 12:10 12: 12 PM EDTdocumented in this encounter Plan of Treatment Date Type Specialty Care Team Description 08/12/2019 [facility] [address] [facility] [address] [facility] Maintenance Due Date Last Done Comments Diabetic Eye Exam 1955 MEDICARE ANNUAL WELLNESS 1955 VISIT PAP SMEAR 1955 PNEUMOCOCCAL 0-64 YRS (1 of 1961 1 - PPSV23) DEPRESSION SCREENING 1967 HIV SCREENING 1970 HEPATITIS C SCREENING 1995 MAMMOGRAM (SCREENING) 1995 COLONOSCOPY SCREENING 2005 ZOSTER IMMUNIZATION SERIES 2005 (1 of 2) INFLUENZA VACCINE (#1) 2019 HEMOGLOBIN A1C 07/15/2019 04/14/2019, 11/25/2018, 12/11/2017, Additional history exists LIPID DISORDER SCREENING 11/26/2019 11/25/2018, 10/06/2015, 03/24/2014, Additional history exists FOOT EXAM 04/14/2020 04/14/2019, 04/14/2019, 11/25/2018, Additional history exists HPV IMMUNIZATION SERIES Aged Out No longer eligible based on patient's age to complete this topic MENINGOCOCCAL VACCINE IMM Aged Out No longer eligible based on patient's age to complete this topic documented as of this encounter Results Not on filedocumented in this encounter Visit Diagnoses Diagnosis Uncontrolled type 2 diabetes mellitus with complication, with long-term current use of insulin (HCC) - Primary documented in this encounter Insurance Payer Benefit Plan / Subscriber ID Effective Dates Phone Address Type Group MEDICARE MEDICARE PART A xxxxxxxxxxx 1997-Present Medicare & B CIGNA COMMERCIAL CIGNA MV xxxxxxxxxxx 2016-Present [employer] Guarantor Name Account Type Relation to Date of Phone Billing Patient Address Ayanna Leon Personal/Family 1955 [address] [phone] [place] [id number] documented as of this encounter
[2019-06-04 01:37] LABS: Hematocrit 36 % (35-47); Hemoglobin 11.9 g/dL (12.0-16.0); Mean Corpuscular HGB Conc 33 g/dL (31-36); Mean Corpuscular Hemoglobin 28 pg (27-31); Mean Corpuscular Volume 84 fL (80-97); Mean Platelet Volume 6.6 fL (7.4-10.4); Platelet Count 387 10^3/uL (150-450); Red Blood Count 4.29 10^6 /uL (3.70-4.87); Red Cell Distribution Width 16 % (10-15); White Blood Count 9.7 10^3/uL (3.5-10.8)
[2019-06-04] MEDS ORDERED: Morphine 4 MG/ML VIAL (1 ml) 4 MG/ML VIAL IV ONE (01:41)
[2019-06-04] MEDS ORDERED: Morphine 4 MG/ML VIAL (1 ml) 4 MG/ML VIAL ONE (01:43)
[2019-06-04] MEDS ORDERED: VERAPAMIL 2.5 MG/ML 2 ML VIAL ** 5 mg/2 ml ONE (01:49)
[2019-06-04] MEDS ORDERED: Lidocaine 1% INJ* 10 MG/ML 30 ML SDV ONE (01:50)
[2019-06-04] MEDS ORDERED: Heparin 2 UNITS/ML IVPREMIX* 2,000 ML IV ONE (01:50)
[2019-06-04] MEDS ORDERED: nitroGLYCERIN DRIP* 25,000 MCG/250 ML BTL ONE (01:50)
[2019-06-04] MEDS ORDERED: Iohexol 350 (CONTRAST) 200 ML MDV IV ONE (01:51)
[2019-06-04] MEDS ORDERED: Heparin(*) 1000 UNIT/ML 10 ML VIAL CATH LAB IV ONE (01:52)
[2019-06-04 01:56] LABS: Albumin 3.5 g/dL (3.2-5.2); Albumin/Globulin Ratio 0.9 (1-3); BUN/Creatinine Ratio 23.1 (8-20); Calcium 9.1 mg/dL (8.6-10.3); EGFR African American 75.3 (>60); EGFR Non-African American 62.2 (>60); Globulin 4.1 g/dL (2-4); Potassium 3.3 mmol/L (3.5-5.0); Total Bilirubin 0.7 mg/dL (0.2-1.0); Total Protein 7.6 g/dL (6.4-8.9)
[2019-06-04 01:59] LABS: Troponin I 0.01 ng/mL (<0.04)
[2019-06-04 02:01] LABS: CKMB ng/mL 3.6 ng/mL (0.6-6.3)
[2019-06-04 02:03] LABS: Activated Partial Thrombo Time 56.8 seconds (26.0-38.0); INR 4.63 (0.82-1.09)
[2019-06-04] MEDS ORDERED: Adenosine* 3 MG/ML VIAL ONE (03:07)
[2019-06-04 03:12] LABS: ABS Eosinophils 0.1 10^3/ul (0-0.6); ABS Lymphocytes 5.2 10^3/ul (1.0-4.8); ABS Monocytes 1.2 10^3/ul (0-0.8); ABS Neutrophils 3.4 10^3/ul (1.5-7.7); Eosinophil % 0.6 %; Lymphocyte % 52.5 %; Nucleated Red Blood Cells % 0.1
[2019-06-04] MEDS ORDERED: NS 0.9% 1000 ML** 1,000 ML IV SCH (03:30)
[2019-06-04] MEDS ORDERED: Atorvastatin* 80 MG TAB PO ONE (03:55)
[2019-06-04] MEDS ORDERED: Atorvastatin* 80 MG TAB ONE (03:59)
[2019-06-04] MEDS ORDERED: Potassium Chlor TAB* 20 MEQ TAB.ER PO ONE ×2 (04:19→06:24)
[2019-06-04 06:17] LABS: Anion Gap 8 mmol/L (2-11); BUN/Creatinine Ratio 23.7 (8-20); Blood Urea Nitrogen 18 mg/dL (6-24); CO2 Carbon Dioxide 22 mmol/L (22-32); Calcium 8.4 mg/dL (8.6-10.3); Chloride 107 mmol/L (101-111); Cholesterol 138 mg/dL; Creatine Kinase 46 U/L (10-223); EGFR African American 92.7 (>60); EGFR Non-African American 76.6 (>60); Glucose 134 mg/dL (70-100); HDL Cholesterol 25.8 mg/dL; Potassium 3.4 mmol/L (3.5-5.0); Sodium 137 mmol/L (135-145); Triglycerides 413 mg/dL
[2019-06-04] MEDS ORDERED: Dextrose 50% VIAL 50 ml IV PUSH PRN (06:17)
[2019-06-04 06:24] LABS: CKMB ng/mL 4.9 ng/mL (0.6-6.3)
[2019-06-04 06:26] LABS: Troponin I 0.26 ng/mL (<0.04)
[2019-06-04 06:31] LABS: LDL Cholesterol Direct 88 mg/dL
[2019-06-04 06:50] LABS: INR 5.26 (0.82-1.09)
[2019-06-04] MEDS ORDERED: Insulin LISPRO* 1 UNITS UNIT SUBCUT SCH (07:30)
[2019-06-04] MEDS: Gabapentin CAP(*) 300 MG PO SCH ×2 (08:28→21:09)
[2019-06-04] MEDS: predniSONE TAB* 5 MG PO SCH (08:28)
[2019-06-04] MEDS: Pantoprazole TAB * 40 MG TAB PO SCH ×2 (08:29→21:08)
[2019-06-04] MEDS ORDERED: Phytonadione Oral Solution* 5 MG/25 ML UDC PO ONE (09:00)
[2019-06-04] MEDS ORDERED: Metoprolol Succinate XL TAB* 25 MG PO SCH (09:00)
--- NOTE | 2019-06-04 09:13 | CONSULT ---
Consultation - Reason for Consultation Reason for Consultation: elevated INR, fresh cardiac stent Ordering Provider: Sunny Dumont Chief Complaint: chest pain History of Present Illness: 64 yo F w multiple medical problems, currently on coumadin for afib, who presented with new onset chest pain radiating to left arm and was taken to the [facility] overnight and found to have 90% stenosis of her LAD. Her INR on admission was elevated at 4.63. She does report that they have had a difficult time regulating her INR and she is frequently elevated. She thinks the reason she is not on a NOAC is related to concern for cost, though she does not personally feel this will be an issue with her insurance now. She was given several antiplatelet agents in the [facility] and her current INR is 5.26. She has no signs of bleeding. Hematology is being consulted regarding the elevated INR and suggestions on managing this. She is currently chest pain free. Notably she was admitted in late April with SOB and chest pressure, though she states that it was clearly very different that the episode that she had last night. She has no history of GI bleeding. She has just received 2.5 mg po vitamin K. Allergies/Medications Medication: Aspirin (Aspirin 81 Mg Chew Tab*) 81 mg PO DAILY [facility] Atorvastatin Calcium (Lipitor*) 80 mg PO 1700 [facility] Dextrose (Dextrose 50% Vial 50 Ml*) 25 ml IV PUSH .FOR FS < 60 - SS PRN PRN Reason: FS < 60 Gabapentin (Neurontin Cap(*)) 300 mg PO BID [facility] Last Admin: 06/04/19 08:28 Dose: 300 mg Insulin Human Lispro (Humalog*) 10 units SUBCUT AC [facility] Insulin Human NPH (Insulin Nph(*)) 30 units SUBCUT 0700,1500 [facility] Metoprolol Succinate (Toprol Xl Tab*) 25 mg PO DAILY [facility] Last Admin: 06/04/19 08:30 Dose: Not Given Nitroglycerin (Nitroglycerin Tab 0.4 Mg*) 0.4 mg SL Q5M PRN PRN Reason: ANGINA Pantoprazole Sodium (Protonix Tab*) 40 mg PO BID [facility] Last Admin: 06/04/19 08:29 Dose: 40 mg Prednisone (Deltasone Tab*) 5 mg PO DAILY [facility] Last Admin: 06/04/19 08:28 Dose: 5 mg Ticagrelor (Brilinta*) 90 mg PO BID [facility] Allergies/Adverse Reactions: Allergies Allergy/AdvReac Type Severity Reaction Status Date / Time albuterol Allergy Difficulty Verified 02/20/19 15:49 Swallowing latex Allergy Unknown Verified 02/20/19 15:49 Reaction Details pregabalin [From Lyrica] Allergy Altered Verified 02/20/19 15:49 Mental Status codeine AdvReac Intermediate GI Upset Verified 02/20/19 15:49 hydrocodone AdvReac Intermediate GI Upset Verified 02/20/19 15:49 metformin AdvReac Intermediate Nausea Verified 02/20/19 15:49 Sulfa (Sulfonamide AdvReac Intermediate Nausea Verified 02/20/19 15:49 Antibiotics) sulfamethoxazole AdvReac Intermediate Nausea Verified 02/20/19 15:49 [From Bactrim] trimethoprim [From Bactrim] AdvReac Intermediate Nausea Verified 02/20/19 15:49 History - Past Medical History Other History: poorly controlled DM (per pt last A1c>9). afib/flutter sp ablation. hyperlip. kenzie's granulomatosis. TRISTAN. diabetic neuropathy. toe amputation x 2. chronic LE ulcer. spinal stenosis. cholecystectomy. hyesterectomy. PPM. ankle surgery. obesity - Family History Hx Family Cancer: No - Social History Hx Alcohol Use: No Hx Tobacco Use: No Review of Systems - Review of Systems General Comments: current ROS: chest pain markedly improved, has not ambulated so not sure of SOB but had on admission, chronic leg ulcer (not healing), diabetic neuropathy significant in feet. otherwise neg ROS Physical Exam - Physical Exam Physical Examination: Vital Signs Temp Pulse Resp BP Pulse Ox 98 F 60 18 92/48 96 06/04/19 08:00 06/04/19 08:00 06/04/19 08:00 06/04/19 08:00 06/04/19 08:00 obese f lying in bed in nad perr eomi op moist adentulous cta bl s1 s2 nl soft obese nt no le edema ulcer on right hawk, no surrounding erythema bilateral toe amputation warm right hand Results - Lab Results Lab Results: 06/04/19 06/04/19 06/04/19 01:26 01:26 01:26 WBC 9.7 RBC 4.29 Hgb 11.9 L Hct 36 MCV 84 MCH 28 MCHC 33 RDW 16 H Plt Count 387 MPV 6.6 L Neut % (Auto) 34.7 Lymph % (Auto) 52.5 [place] % (Auto) 11.8 Eos % (Auto) 0.6 Baso % (Auto) 0.4 Absolute Neuts (auto) 3.4 Absolute Lymphs (auto) 5.2 H Absolute Monos (auto) 1.2 H Absolute Eos (auto) 0.1 Absolute Basos (auto) 0.0 Absolute Nucleated RBC 0.0 Nucleated RBC % 0.1 INR (Anticoag Therapy) 4.63 H APTT 56.8 H POC Activ Clotting Time Sodium 140 Potassium 3.3 L Chloride 105 Carbon Dioxide 27 Anion Gap 8 BUN 21 Creatinine 0.91 Est GFR ( Amer) 75.3 Est GFR (Non-Af Amer) 62.2 BUN/Creatinine Ratio 23.1 H Glucose 143 H POC Glucose (mg/dL) Lactic Acid Calcium 9.1 Total Bilirubin 0.70 AST 20 ALT 14 Alkaline Phosphatase 72 Total Creatine Kinase 44 CK-MB (CK-2) 3.6 Troponin I 0.01 B-Natriuretic Peptide Total Protein 7.6 Albumin 3.5 Globulin 4.1 H Albumin/Globulin Ratio 0.9 L Triglycerides Cholesterol LDL Cholesterol LDL Cholesterol Direct 101 HDL Cholesterol 06/04/19 06/04/19 06/04/19 05:42 05:42 05:42 WBC RBC Hgb Hct MCV MCH MCHC RDW Plt Count MPV Neut % (Auto) Lymph % (Auto) [place] % (Auto) Eos % (Auto) Baso % (Auto) Absolute Neuts (auto) Absolute Lymphs (auto) Absolute Monos (auto) Absolute Eos (auto) Absolute Basos (auto) Absolute Nucleated RBC Nucleated RBC % INR (Anticoag Therapy) 5.26 H* APTT POC Activ Clotting Time Sodium 137 Potassium 3.4 L Chloride 107 Carbon Dioxide 22 Anion Gap 8 BUN 18 Creatinine 0.76 Est GFR ( Amer) 92.7 Est GFR (Non-Af Amer) 76.6 BUN/Creatinine Ratio 23.7 H Glucose 134 H POC Glucose (mg/dL) Lactic Acid 2.6 H* Calcium 8.4 L Total Bilirubin AST ALT Alkaline Phosphatase Total Creatine Kinase 46 CK-MB (CK-2) 4.9 Troponin I 0.26 H* B-Natriuretic Peptide Total Protein Albumin Globulin Albumin/Globulin Ratio Triglycerides 413 Cholesterol 138 LDL Cholesterol LDL Cholesterol Direct 88 HDL Cholesterol 25.8 Assessment and Plan Impression: 64 yo F w multiple medical problems with chronic afib on coumadin with reported difficult to control INR, now with chest pain sp stent in mid LAD for 95% stenosis, with rising INR. She has no signs of bleeding and so I would let her drift down after this 2.5 mg of PO vitamin K so as to not reverse too quickly and risk clotting off stent (though should be protected with antiplatelet agents ). If she does bleed we will need to reconsider and reverse more aggressively. The bigger question is to whether or not she would do better on a NOAC. Her impression of why they were not used in the past is cost related, which she does not feel is a current concern. Dr. Dumont does not feel that they are contraindicated from an afib perspective and so this may be a better option in terms of maintaining a therapeutic level in a difficult to control patient. If a NOAC is chosen I would recommend starting with INR as close to 2 as possible. thank you for this consultation and we will follow as needed
[2019-06-04] MEDS: Insulin NPH(*) 1 UNITS UNIT SUBCUT SCH ×2 (09:16→17:15)
--- NOTE | 2019-06-04 09:20 | PN ---
Subjective Date of Service: 06/04/19 Interval History: Pt states she is feeling better this morning. States she began to have CP at 2100, which resided, then recurred at midnight. CP radiated to L arm. She has no h/o pain similar, no h/o WI. Underwent cath with LAD stent placement. She now has very mild CP that lasts 2-3 sec and occurs q2h. She c/o n/v, but none since cath. She has no other complaints today. Objective Active Medications: Aspirin (Aspirin 81 Mg Chew Tab*) 81 mg PO DAILY [facility] Atorvastatin Calcium (Lipitor*) 80 mg PO 1700 [facility] Dextrose (Dextrose 50% Vial 50 Ml*) 25 ml IV PUSH .FOR FS < 60 - SS PRN Gabapentin (Neurontin Cap(*)) 300 mg PO BID [facility] Insulin Human Lispro (Humalog*) 10 units SUBCUT AC [facility] Insulin Human NPH (Insulin Nph(*)) 30 units SUBCUT 0700,1500 [facility] Metoprolol Succinate (Toprol Xl Tab*) 25 mg PO DAILY [facility] Nitroglycerin (Nitroglycerin Tab 0.4 Mg*) 0.4 mg SL Q5M PRN Pantoprazole Sodium (Protonix Tab*) 40 mg PO BID [facility] Prednisone (Deltasone Tab*) 5 mg PO DAILY [facility] Ticagrelor (Brilinta*) 90 mg PO BID [facility] Vital Signs: Temp Pulse Resp BP Pulse Ox 97.1 F 60 17 107/60 96 06/04/19 16:00 06/04/19 18:00 06/04/19 18:00 06/04/19 18:00 06/04/19 18:00 Oxygen Devices in Use Now: None Appearance: Pt is sitting in bed with HOB elevated. She appears to be in no acute distress. Eyes: No Scleral Icterus, PERRLA Ears/Nose/Mouth/Throat: NL Teeth, Lips, Gums, Clear Oropharnyx, Mucous Membranes Moist Neck: NL Appearance and Movements; NL JVP, Trachea Midline Respiratory: Symmetrical Chest Expansion and Respiratory Effort, Clear to Auscultation Cardiovascular: NL Sounds; No Murmurs; No JVD, RRR, No Edema Abdominal: NL Sounds; No Tenderness; No Distention, No Hepatosplenomegaly Extremities: No Edema, No Clubbing, Cyanosis Neurological: Alert and Oriented x 3 Result Diagrams: 06/05/19 05:38 06/05/19 05:38 Microbiology and Other Data: Microbiology 06/04/19 03:30 Nasal Screen MRSA (PCR) - Final Nasal Mrsa Not Detected Assess/Plan/Problems-Billing Assessment: 64yof PMHx DM, angina, AF, CHS, HLD, HTN presents with CP found to have STEMI on EKG, elevated troponins, and underwent heart cath with LAD stent placement. - Patient Problems (1) S/P cardiac cath Comment: -Cardiac cath with LAD stent placement -Management per cardiology (2) Afib Comment: - Continue Atenolol - Hold warfarin due to supratherapeutic INR - Monitor INR (3) Diabetes mellitus Comment: -NPH at home dose 30 BID with meals -FS ACHS with lispro ss coverage -Holding invokana, liraglutide (4) Diabetic neuropathy Comment: -Gabapentin (5) Wegeners granulomatosis Comment: - Continue prednisone (6) DVT prophylaxis Comment: -INR supratherapeutic; continue to hold Coumadin -Recheck INR daily (7) Full code status Status and Disposition: Inpatient. Discharge per cardiology.
--- NOTE | 2019-06-04 10:48 | HP ---
HISTORY AND PHYSICAL: ADDENDUM: PHYSICAL EXAMINATION LUNGS: Clear to A and P. HEART: Was distant in nature, regular rate and rhythm with question of soft systolic murmur. No significant murmur appreciated. ABDOMEN: Obese, nontender. EXTREMITIES: Without edema. Pulses in femoral were present without significant bruits. Radial artery pulse was present. MUSCULOSKELETAL: The patient moves all extremities appropriately. NEURO: The patient is alert, oriented with normal mentation. PSYCHOLOGICAL: The patient with normal affect. DIAGNOSTIC STUDIES/LAB DATA: Laboratory results in the emergency room, hemoglobin/hematocrit 11.9/36 with white count 9700, platelet count 387,000. Sodium 140, potassium 3.3, chloride 105, bicarb 27, BUN and creatinine 21 and 0.9, lactic acid 3.7, CPK 44, MB 3.6, troponin 0.01, LDL 101. Electrocardiogram revealed ventricularly paced rhythm, but interestingly there appeared to be ST segment elevation inferiorly and anteriorly compared to last EKG. Limited echocardiogram in the emergency room revealed distal anterior apical wall hypokinesis. OVERALL ASSESSMENT: The patient with a very good story for ischemic symptomatology. I cannot explain normal troponin in the setting of 5 hours of on and off symptoms unless there is a critically stenosed artery that is transiently occluding at times, but not enough to spill cardiac enzymes. At this point in time, limited echocardiogram does show the wall motion abnormality which is new compared to less than a month ago and as such clearly I would proceed to cardiovascular laboratory at an increased risk of bleeding given her INR. 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 She understands the risks and benefits, accepts them, and wishes to proceed. [id number]/[facility] #: [id number] [facility]
[2019-06-04] MEDS ORDERED: Ticagrelor* 90 MG TAB PO SCH (11:00)
--- NOTE | 2019-06-04 11:06 | HP ---
CONTINUATION ADDENDUM NOW INCLUDED ON THIS REPORT CC: Dr. Greenfield "John", [facility]; Dr. Long Calderón; Dr. Kely Morrison of H[facility] * ADMISSION HISTORY AND PHYSICAL: DATE OF ADMISSION: 06/04/19 CHIEF COMPLAINT: The patient presents now with significant chest discomfort and abnormal EKG interpreted by the emergency room physician as an ST-segment elevation myocardial infarction. HISTORY OF PRESENT ILLNESS: The patient is a 64-year-old female who is known to our group through Dr. Gin Alvarado, who watches the patient for chronic atrial fibrillation with a history of multiple ablation in the past. She has had a pacemaker placement following AV yayo ablation. She was recently hospitalized at [facility] for evaluation of chest discomfort and shortness of breath. During that time, she underwent a nuclear study that reportedly raised a question of very small area of the inferior wall reversible ischemia. She had normal LV function according to that study at that time. She was seen in followup by Dr. Alvarado for a transesophageal echocardiogram on 05/14/19 and the report stated that the patient had normal left ventricular systolic function with an EF of 55% to 60%. At that point, mitral valve was assessed and found to have mild mitral regurgitation, trace to mild tricuspid regurgitation. She subsequently was discharged home. She had been doing okay with the exception of the chronic shortness of breath and was seen in followup on 06/02/19 by Tawny Mason NP for the [facility]. At that time, she stated that the patient was doing somewhat better with occasional shortness of breath, but feeling basically washed out at times. The game plan at that point was to cut her torsemide 1 tablet 3 days a week and she will increase her activity. On day of admission at 9 p.m., she started having severe chest heaviness and tightness. She had it on and off. She notified her daughter, who eventually came over and because of the symptoms, convinced her mom to call the paramedics and she was sent to the emergency room. In the emergency room, EKG was interpreted by the emergency room physician as being an acute ST segment elevation, inferior wall DC, although with a paced rhythm. STEMI alert was called and I came in. When I came in, she was still symptomatic complaining of chest discomfort, but appeared to be in no profound distress. The EKG did show the paced rhythm, but interestingly the ST segments were elevated in II, III, AVF in the anterior leads compared to the most recent one done in the hospital at the same heart rate. I reviewed the nuclear images and was concerned about the distal anterior apical region. As such, I brought an echo machine down to the emergency room and found that she had significant hypokinesis to the distal anterior apical wall. I discussed with her going to the cardiovascular laboratory. Unfortunately, she was on Coumadin. Her INR came back at 4.6. I explained that she was at clear increased risk for significant bleeding complications, but given the fact that she was still having ongoing symptoms, I thought it made sense that we would need to take her and hopefully go from a radial artery approach. Interestingly, the troponin, CPK and MB came back from initial draw and they were all negative. Despite there were ongoing symptoms, I did explain the risks and benefits, she agreed and wished to proceed. PAST MEDICAL HISTORY: As mentioned above, atrial fibrillation with chronic ablations with AV node ablation and pacemaker placed, hyperlipidemia, Erickson's granulomatosis, insulin requiring diabetes, obesity, reportedly sleep apnea, neuropathy, and spinal stenosis. SOCIAL HISTORY: Not obtained at that time due to urgent need to proceed to cardiovascular laboratory. FAMILY HISTORY: Brother with history of coronary artery disease, of an DC at 45. Mother with coronary artery disease and diabetes. REVIEW OF SYSTEMS: No history of significant hematochezia, hematemesis, or hematuria. No allergy to contrast and no known history of TIA or stroke. PHYSICAL EXAMINATION VITAL SIGNS: When I saw her in the emergency room, blood pressure anywhere from 90 to 110, pulse 60 to 80, respirations 18, O2 saturation 95%. NECK: Supple. Short nature, I cannot assess for increased JVP. CONTINUATION ADDENDUM: LUNGS: Clear to A and P. HEART: Was distant in nature, regular rate and rhythm with question of soft systolic murmur. No significant murmur appreciated. ABDOMEN: Obese, nontender. EXTREMITIES: Without edema. Pulses in femoral were present without significant bruits. Radial artery pulse was present. MUSCULOSKELETAL: The patient moves all extremities appropriately. NEURO: The patient is alert, oriented with normal mentation. PSYCHOLOGICAL: The patient with normal affect. DIAGNOSTIC STUDIES/LAB DATA: Laboratory results in the emergency room, hemoglobin/hematocrit 11.9/36 with white count 9700, platelet count 387,000. Sodium 140, potassium 3.3, chloride 105, bicarb 27, BUN and creatinine 21 and 0.9, lactic acid 3.7, CPK 44, MB 3.6, troponin 0.01, LDL 101. Electrocardiogram revealed ventricularly paced rhythm, but interestingly there appeared to be ST segment elevation inferiorly and anteriorly compared to last EKG. Limited echocardiogram in the emergency room revealed distal anterior apical wall hypokinesis. OVERALL ASSESSMENT: The patient with a very good story for ischemic symptomatology. I cannot explain normal troponin in the setting of 5 hours of on and off symptoms unless there is a critically stenosed artery that is transiently occluding at times, but not enough to spill cardiac enzymes. At this point in time, limited echocardiogram does show the wall motion abnormality which is new compared to less than a month ago and as such clearly I would proceed to cardiovascular laboratory at an increased risk of bleeding given her INR. 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 She understands the risks and benefits, accepts them, and wishes to proceed. /[id number]/[facility] #: [id number]/[facility] #: [id number]
--- NOTE | 2019-06-04 11:06 | CONS ---
CC: Dr. Long Calderón [facility] MEDICINE CONSULTATION: DATE OF CONSULT: 06/04/19 PRIMARY CARE PHYSICIAN: Dr. Long Calderón. REQUESTING PHYSICIAN ON CONSULT: Dr. Sunny Dumont. ATTENDING PHYSICIAN: Dr. Jina Kidd. HISTORY OF PRESENT ILLNESS: Ms. Leon is a 64-year-old female with past medical history of atrial fibrillation and flutter, status post ablation and pacer, Erickson's granulomatosis, diabetes, and hyperlipidemia, who presented to the emergency room on 06/04/19 with complaints of chest pain. The patient reports that the pain began around 9 p.m. while at rest. The pain initially went away, though returned. Nothing was making the pain better or worse. So, she called EMS. EMS did a 12-lead, which showed ST elevation in II, III, and aVF, and so a STEMI was called. The patient was taken to the analytical laboratory technician by Dr. Dumont where he placed 1 stent to the LAD. At this time, the patient is resting in bed in the intensive care unit. She reports feeling significantly improved. Chest pain has completely resolved. She denies any shortness of breath, dizziness, headache, neurological deficits, diaphoresis or nausea. Daughter is at the bedside. The patient does note that she was surprised that her INR was supratherapeutic on admission as she has been well maintained on warfarin for quite some time, taking alternating doses of 2 mg and 4 mg daily. She does note that her diabetes has been difficult to control and there has been many medication changes recently. Additionally, she believes that her diabetes medications are causing edema and this was distressing to her. The edema is under control as long as she takes her spironolactone and torsemide. Granulomatosis has been in remission according to what Dr. Babcock has told her, although she has recently seen some rashes on her lower extremities that are concerning for vasculitis. In the past she had respiratory complications from her granulomatosis. Due to her complex medical history, the hospitalist service was asked to consult for co-medical management. PAST MEDICAL HISTORY: 1. Atrial fibrillation/flutter, status post ablation x2. 2. Hyperlipidemia. 3. Erickson's granulomatosis. 4. Diabetes mellitus type 2. 5. Obesity. 6. Sleep apnea. 7. Diabetic neuropathy. 8. Spinal stenosis. PAST SURGICAL HISTORY: 1. Cholecystectomy. 2. Hysterectomy. 3. Left fourth toe amputation. 4. Pacemaker insertion in 2011 with battery replacement in 2017. 5. Right great toe amputation. HOME MEDICATIONS: 1. Acetaminophen 650 mg p.o. q.4 hours p.r.n. pain. 2. Atenolol 25 mg p.o. daily. 3. Buspirone 30 mg p.o. daily. 4. Invokana 300 mg p.o. daily. 5. Gabapentin 300 mg p.o. b.i.d. 6. Humulin N 30 units subcu b.i.d. 7. Humulin R 20 units subcu a.c. 8. Victoza 1.8 mg subcu daily. 9. Omeprazole 20 mg p.o. b.i.d. 10. Prednisone 5 mg p.o. daily. 11. Spironolactone 25 mg p.o. daily. 12. Torsemide 20 mg p.o. daily. 13. Warfarin, alternating 2 mg and 4 mg, p.o. daily. ALLERGIES: ALBUTEROL, LATEX, LYRICA, CODEINE, HYDROCODONE, METFORMIN, and SULFA. FAMILY HISTORY: The patient's brother had a history of coronary artery disease and from an MT at the age of 45. Mother had coronary artery disease and diabetes. Father had COPD. SOCIAL HISTORY: The patient denies any tobacco, alcohol or recreational drug use. She lives at home, alone. The patient's daughter, Lindsay, will be her surrogate decision in the event she is unable to make her own decisions. REVIEW OF SYSTEMS: An 11-point review of systems was performed and all the pertinent positive and negative findings are in the HPI. All other systems are negative. PHYSICAL EXAMINATION: General: Ms. Leon is a well-developed, well-nourished, obese white woman, lying in bed, in no acute distress. She appears her stated age. Vitals Signs: Temp 98.0, heart rate 60, respiratory rate 16, oxygen saturation 94% on room air, blood pressure 96/45. HEENT: Head is atraumatic, normocephalic. Visual nobles are grossly intact. Extraocular movements are intact. Oral mucous membranes are moist. Neck: Thyroid not palpable. Trachea midline. No lymphadenopathy. Respiratory: Symmetrical chest expansion. No chest wall deformities. Lungs: Clear to auscultation throughout , without rhonchi, wheezes, or rales. Cardiovascular: Regular rate and rhythm. S1 and S2 present. No murmurs, rubs or gallops. No JVD. Abdomen: Soft, nontender to palpation. Bowel sounds normoactive throughout. Extremities : Skin warm and smooth bilaterally. No edema. Pedal pulses 2+ bilaterally. Neuro: Awake, alert, and oriented x4. Cranial nerves II through XII are grossly intact. Skin: There is quarter-sized ulcer to the right lower leg. DIAGNOSTIC STUDIES/LAB DATA: WBC 9.7, RBC 4.29, hemoglobin 11.9, hematocrit 36. INR 4.63. Sodium 137, potassium 3.4, chloride 107, carbon dioxide 22, BUN 18, creatinine 0.76. Glucose 134. Lactic acid 2.6. CK 46. Triglycerides 413 , total cholesterol 138, LDL 101, HDL 75. EKG shows normal sinus rhythm with a rate of 79. Diffuse ST elevation. Second EKG shows normal sinus rhythm with a rate of 60. ST elevation resolved. Chest x-ray to my read shows mild interstitial edema. ASSESSMENT AND PLAN: Ms. Leon is a 64-year-old female with past medical history of atrial fibrillation and flutter, hyperlipidemia, Erickson's granulomatosis, and diabetes, who presented to the emergency room today with chest pain and was found to have ST elevation. She was subsequently taken to the analytical laboratory technician where a single stent was placed to the LAD. She has been admitted by Dr. Dumont and the hospitalist service was asked to consult for co-medical management. 1. STEMI, status post cardiac catheterization: Management per Dr. Dumont. 2. Diabetes: The patient reports blood sugars have been difficult to control historically. Recent A1c in November of this year was 9.1%. I will note that the patient reports taking 20 units of regular insulin a.c. at home, though it appears as though she has been filling prescriptions for Humalog. At this point , I will continue her usual dosing of NPH at 30 units b.i.d. I will decrease her Humalog to 10 units a.c. to avoid any hypoglycemia. Invokana and Victoza will be held at this time, but the patient's daughter reports that she will bring the insulin from home. I will monitor blood glucose a.c. 3. Atrial fibrillation/flutter: Status post ablation and pacemaker. The patient is currently paced and reports always being in 100% paced rhythm. Dr. Dumont has placed the patient on metoprolol. So, I will hold her atenolol at this point. The patient's INR was supratherapeutic on admission at 4.63 and she states that Dr[address] Dumont did mention to her that she may need to switch to a different anticoagulant. At this point we will hold anticoagulation obviously because of the elevated INR and we will work with Cardiology to determine a plan for further anticoagulation going forward. 4. Erickson's granulomatosis: There is no acute concern. Continue prednisone. 5. Diabetic neuropathy: Continue gabapentin. 6. History of lower extremity edema: It sounds as though the patient is taking spironolactone and torsemide due to her lower extremity, of which she has none at this time. Blood pressure has been soft. So, I will hold diuretics at this point and we will monitor for worsening edema. 7. FEN: Fluids have been ordered by Dr. Dumont. The patient had some mild hypokalemia at admission, with a potassium of 3.3. She was given 20 mEq of potassium though repeat potassium this morning was 3.4. So, I will give the patient another 20 mEq now. Consistent carb diet has already been ordered by Dr. Dumont. 8. Code status: The patient is a full code. 9. DVT prophylaxis: Given the patient's INR is supratherapeutic, so anticoagulation will be held at this time and plans for further anticoagulation will need to be discussed with Cardiology. TIME SPENT: Approximately 45 minutes were spent on this consultation, greater than half of that time was spent [id number] with the patient and her daughter obtaining my history, performing my physical exam, and reviewing the plan of care. This case has been reviewed with my attending, Dr. Kidd, who is in agreement with the plan of care. JAMISON ALCANTARA, [employer] [id number]/CPS #: [id number] EDGAR
[2019-06-04] MEDS ORDERED: Perflutren Lipid Microsphere* 3 ML VIAL ONE (12:04)
--- NOTE | 2019-06-04 12:14 | CATH ---
CC: Dr. Gin Alvarado, [facility]; Dr. Long Calderón * CORONARY CATHETERIZATION AND INTERVENTIONAL REPORT: DATE OF PROCEDURE: 06/04/19 - ROOM #ICU-10 INDICATION FOR PROCEDURE: This patient presents with acute coronary syndrome with severe chest discomfort on and off for the past 5 hours with abnormal paced EKG with ST segment elevation, noted differently compared to recent hospitalization, EKG paced rhythm with bedside limited echo demonstrating distal anterior apical hypokinesis, new compared to recent hospitalization. PROCEDURE: Coronary arteriography, primary stenting of the mid left anterior descending artery utilizing a 3.5 x 12 mm long Synergy drug-eluting stent postdilated 3.6 to 3.65 mm. CONSENT: The patient was interviewed and examined in the emergency room, where the risks and benefits were explained. Of note, in light of her significantly abnormal INR, the additional high risk of bleeding than normal was presented to the patient. It was explained that an attempt would be made to do a radial approach if the artery was acceptable for it or having to do the femoral artery approach with continued ongoing chest discomfort. She understood the risks and benefits including the increased risk and was willing to proceed. EQUIPMENT UTILIZED: 1. Right radial artery sheath, a 6-Marshallese glide slender sheath. 2. The diagnostic guidewire was a Wholey regular length guidewire as well as to exchange catheters once in the ascending aorta, a Bashir 260 length curved guidewire. 3. Diagnostic catheter was a TIG4 5-Marshallese catheter. 4. The guiding catheter was a 5-Marshallese IL3.5 curved guide catheter. 5. The interventional wire was a 190 cm length All Star wire. 6. The stent utilized was a 3.5 x 12 mm long Synergy drug-eluting stent. 7. The post stent deployment balloon catheter - a 3.5 x 8 mm long NC Emerge balloon. 8. The closure device was a regular length Vasc Band by vascular solutions. MEDICATIONS GIVEN IN THE AUXILIARY EQUIPMENT TENDER: Of note, in the emergency room, the patient had received 324 mg of aspirin in addition to 4000 units of heparin and 180 mg of Brilinta. In the ear mold laboratory technician, she received 1% lidocaine locally for local anesthesia and she had a radial artery cocktail including 300 mcg of nitroglycerin and 3 mg of verapamil. For transient slow flow, she received 72 mcg of intracoronary adenosine. PRE-CARDIAC CATHETERIZATION LABORATORY RESULTS: Hemoglobin and hematocrit of 11.9 and 36, platelet count of 387,000. Sodium 140, potassium 3.3, chloride 105 , bicarb 27. BUN and creatinine of 21 and 0.9. Troponin was 0.01. DESCRIPTION OF PROCEDURE: The patient was brought to the cardiovascular laboratory where a formal time-out was performed. She was prepped and draped in the sterile fashion and under ultrasound guidance, the right radial artery was cannulated and sheath was placed. The cocktail was given. ACT was checked. Coronary arteriography was performed. The ACT was found to be in therapeutic range and as such, the guiding catheter was advanced with no difficulty over the exchange wire. Guiding views were obtained and the All Star wire was advanced down the LAD and primary stenting was performed with post- stent deployment balloon inflation. Following that, the artery was assessed in multiple views. The total contrast used was 100 cc of Omnipaque dye. The radiation exposure included 8.2 minutes of fluoro time. The air kerma radiation was 2218 milligray. The DAP radiation was 11,926 microgray per meter squared. RESULTS: CORONARY ARTERIOGRAPHY: A. Right coronary artery - a dominant vessel supplying the PDA and posterior left ventricular branch. There were minimal luminal irregularities noted throughout the course of the vessel. No significant obstruction was seen. Of note, the PDA bifurcated and one posterior left ventricular branch short in nature was noted. B. Left coronary artery. 1. Left main - widely patent. 2. Left anterior descending artery - the left anterior descending artery had mild 30% narrowing in the proximal portion followed by another 25% obstruction before the first septal radio recorder. In the mid portion of the vessel after the takeoff of a mid diagonal branch, there was a critical 95% lesion. Past this point, the left anterior descending artery supplied the apical region and slightly on to the distal inferior wall. There was MAU-2 to 3 flow noted in the vessel. 3. Circumflex artery - a nondominant vessel supplying 2 obtuse marginal branches, the second of which was large in caliber extending to the apical region and bifurcating. No significant disease was seen throughout the vessel. INTERVENTION INTO MID LAD: Successful reduction of critical 95% mid LAD lesion with primary stenting utilizing a 3.5 x 12 mm long Synergy drug-eluting stent postdilated to 3.6 to 3.65 mm with MAU-3 flow, no dissection seen, and 0% residual stenosis. Of note , transient MUA-2 flow was noted immediately after stent placement, but MAU-3 flow was established quickly with utilizing intracoronary adenosine. OVERALL ASSESSMENT: Successful intervention into critically stenosed mid LAD with primary stenting with a 3.5 x 12 mm long Synergy drug-eluting stent postdilated 3.6 to 3.65 mm. Dual-antiplatelet therapy at this point in time will be maintained. The Vasc Band was placed and we will keep it on for a more prolonged period of time in order to let the INR drift down toward a therapeutic range at which point the Vasc Band will be completely removed. Consideration for switching the patient from Brilinta to clopidogrel at some point in time will be made in order to avoid triple therapy with Brilinta. We will discuss with Dr. Alvarado the issue about Coumadin versus a NOAC agent in her and see what the reasoning was for not using a NOAC. In the meantime, aggressive risk factor management with statin therapy will be pursued in addition to beta-johnson and potentially JOANNE inhibitor depending on LV function. An echocardiogram will be obtained tomorrow morning. [id number]/[facility] #: [id number] [facility] PSYCHIATRIC CENTERRadha
[2019-06-04] MEDS: Insulin LISPRO* 1 UNITS UNIT SUBCUT SCH ×2 (12:29→17:15)
[2019-06-04] MEDS: Ticagrelor* 90 MG TAB PO SCH ×2 (12:33→21:08)
[2019-06-04 13:59] LABS: Creatine Kinase 58 U/L (10-223)
[2019-06-04 14:04] LABS: CKMB ng/mL 7.2 ng/mL (0.6-6.3); Troponin I 0.72 ng/mL (<0.04)
[2019-06-04] MEDS: Atorvastatin* 80 MG TAB PO SCH (17:16)
--- NOTE | 2019-06-04 19:02 | ECHO ---
*[facility]* [place] [address] Fax #: [phone] Transthoracic Echocardiogram Patient: Ayanna Leon : 1955 Study Date: 06/04/2019 Age: 64 Gender: F HR: 61 bpm Height: 67 in /170.2 cm BSA: 2.1 m^2 Weight: 218.5 lb /99.3 kg BMI: 34.3 kg/m^2 *Tread Booker: * Aster P[facility]rez [facility] *Referring Physician: * Sunny Dumont MD *Reading Physician: * Zaynab Lindsay MD Indications: Myocardial Infarction (new). History: Atrial flutter. Atrial fibrillation. Mitral valve disease. Risk factors: Hypertension. Obese. Dyslipidemia. Labs, prior tests, procedures, and surgery: Catheterization with coronary intervention (06/04/2019). Performed during the current admission. Permanent pacemaker system implantation. Conclusions Summary: - Left ventricle: The cavity size is normal. There is mild concentric hypertrophy. Systolic function is at the lower limits of normal. The estimated ejection fraction is 50-55%. Hypokinesis of the mid-apicalinferolateral, inferior, and inferoseptal myocardium. Hypokinesis of the midanteroseptal myocardium. - Left atrium: The atrium is moderately dilated. - Right atrium: The atrium is mildly dilated. - Mitral valve: There is mild regurgitation. - Tricuspid valve: There is mild regurgitation. - C/t transesophageal echocardiogram done 05/14/2019, the wall motion abnormality are new. Left ventricle ejection fraction is borderline less now from 55-60%. Study data: Transthoracic echocardiogram. Procedure: Transthoracic echocardiography was performed. Image quality was poor. Intravenous Definity , 3 mlswas administered. Complete 2D, spectral Doppler, and color flow Doppler. Location: ICU Patient status: Inpatient. Patient room number: ICU-10. Rhythm: Paced rhythm. Findings Left ventricle: The cavity size is normal. There is mild concentric hypertrophy. Systolic function is at the lower limits of normal. The estimated ejection fraction is 50-55%. Regional wall motion abnormalities: Hypokinesis of the mid-apicalinferolateral, inferior, and inferoseptal myocardium. Hypokinesis of the midanteroseptal myocardium. Left ventricular diastolic function parameters are indeterminate. Right ventricle: The cavity size is mildly dilated. Systolic function is mildly reduced. Systolic pressure is at the upper limits of normal. Ventricular septum: There is septal flattening of the interventricular septum consistent with RV volume or pressure overload. Left atrium: The atrium is moderately dilated. Right atrium: The atrium is mildly dilated. Mitral valve: The leaflets are mildly thickened. There is no evidence of stenosis. There is mild regurgitation. Aortic valve: The valve is trileaflet. The leaflets are mildly thickened. There is no evidence of stenosis. There is trace regurgitation. Tricuspid valve: The leaflets are normal thickness. There is no evidence of stenosis. There is mild regurgitation. Pulmonic valve: The leaflets are normal thickness. There is no evidence of stenosis. There is trace regurgitation. Aorta: Aortic root: The aortic root is appears normal. Ascending aorta: The ascending aorta is appears normal. Aortic arch: The aortic arch is appears normal. Pericardium: A prominent pericardial fat pad is present. There is no significant pericardial effusion. Pulmonary arteries: The main pulmonary artery is normal-sized. Systolic pressure is at the upper limits of normal. Systemic veins: Inferior vena cava: The vessel is dilated. There is (>= 50%) respiratory change in the IVC dimension. Measurements Left ventricle Value Ref Aortic valve Value Ref LIZ, LAX 5.1 cm 3.8 - 5.2 Yenny diam, ED 1.8 cm ----- ESD, LAX (H) 3.9 cm 2.2 - 3.5 Peak v, S 1.45 m/sec ----- FS, LAX (L) 24 % 27 - 45 VTI, S 30.5 cm ----- PW, ED, LAX (H) 1.2 cm 0.6 - 0.9 Mean grad, S 4.0 mm Hg ----- FS (L) 24 % 27 - 45 Peak grad, S 8.0 mm Hg ----- PW, ED (H) 1.2 cm 0.6 - 0.9 LVOT/AV, VTI ratio 0.49 ----- E', lat yenny, TDI 10.6 cm/sec >=10.0 ROLDAN, VTI 1.54 cm^2 --- -- E/e', lat yenny, 9 ROLDAN, Vmax 1.87 cm^2 ----- TDI E', med yenny, TDI 7.8 cm/sec >=7.0 Mitral valve Value Ref E/e', med yenny, 12 Peak E 0.94 m/sec ----- TDI Peak A 0.01 m/sec ----- E', avg, TDI 9.2 cm/sec Decel time 211 ms ----- E/e', avg, TDI 10 <=14 Peak grad, D 3.5 mm Hg --- -- Peak E/A ratio 187.2 ----- LVOT Value Ref Diam, S 2.00 cm Pulmonic valve Value Ref Area 3.1 cm^2 Peak v, S 1.11 m/sec ----- Peak indigo, S 0.87 m/sec Peak grad, S 5.0 mm Hg ----- VTI, S 15.0 cm Mean grad, S 1 mm Hg Tricuspid valve Value Ref SV 46 ml TR peak v 2.4 m/sec <=2.8 SV/bsa 22 ml/m^2 Peak RV-RA grad, S 23 mm Hg ----- Ventricular septum Value Ref Aortic root Value Ref IVS, ED (H) 1.2 cm 0.6 - 0.9 Root diam 2.8 cm <4.2 Right ventricle Value Ref Ascending aorta Value Ref LIZ, LAX 3.1 cm AAo AP diam, S 2.9 cm ----- LIZ minor ax, A4C (H) 4.5 cm 1.9 - 3.5 mid Aortic arch Value Ref Pressure, S 31 mm Hg Arch diam 2.4 cm ----- Left atrium Value Ref Decending aorta Value Ref AP dim, ES (H) 4.30 cm 2.70 - Valentin peak indigo 0.85 m/sec ----- 3.80 ML dim, A4C 4.7 cm Pulmonary artery Value Ref SI dim, A4C 5.7 cm Pressure, S 26.0 mm Hg ----- Vol/bsa, ES, 1-p 31 ml/m^2 11 - 40 A4C Inferior vena cava Value Ref Vol/bsa, ES, A/L (H) 42 ml/m^2 16 - 34 Diam 2.4 cm ----- Right atrium Value Ref SI dim, ES 5.3 cm 3.4 - 5.3 ML dim, ES, A4C (H) 4.6 cm 2.6 - 4.4 SI dim, ES, A4C 5.3 cm 3.4 - 5.3 Estimated RAP 8 mm Hg Legend: (L) and (H) raudel values outside specified reference range. Prepared and electronically signed by Zaynab Lindsay MD 06/04/2019 19:02
[2019-06-04 20:40] LABS: Creatine Kinase 55 U/L (10-223)
[2019-06-04 20:46] LABS: CKMB ng/mL 5.9 ng/mL (0.6-6.3); Troponin I 0.47 ng/mL (<0.04)
[2019-06-04] MEDS: Nitroglycerin TAB 0.4 MG* 0.4 MG TAB SL PRN ×2 (21:08→21:37)
[2019-06-05] MEDS ORDERED: Acetaminophen TAB* 325 MG ONE (00:09)
[2019-06-05] MEDS: Acetaminophen TAB* 325 MG PO PRN ×3 (00:11→17:49)
[2019-06-05 05:57] LABS: ABS Basophils 0.1 10^3/ul (0-0.2); ABS Eosinophils 0.1 10^3/ul (0-0.6); ABS Lymphocytes 2.3 10^3/ul (1.0-4.8); ABS Monocytes 0.8 10^3/ul (0-0.8); Hematocrit 32 % (35-47); Hemoglobin 10.8 g/dL (12.0-16.0); Lymphocyte % 31.8 %; Mean Corpuscular HGB Conc 34 g/dL (31-36); Mean Corpuscular Hemoglobin 28 pg (27-31); Mean Corpuscular Volume 83 fL (80-97); Mean Platelet Volume 6.8 fL (7.4-10.4); Nucleated Red Blood Cells % 0.2; Platelet Count 329 10^3/uL (150-450); Red Blood Count 3.83 10^6 /uL (3.70-4.87); Red Cell Distribution Width 16 % (10-15); White Blood Count 7.3 10^3/uL (3.5-10.8)
[2019-06-05 06:05] LABS: INR 4.45 (0.82-1.09)
[2019-06-05 06:16] LABS: BUN/Creatinine Ratio 19.4 (8-20); EGFR African American 98.7 (>60); EGFR Non-African American 81.6 (>60); Potassium 4.2 mmol/L (3.5-5.0)
[2019-06-05] MEDS: Pantoprazole TAB * 40 MG TAB PO SCH (08:11)
[2019-06-05] MEDS: Insulin LISPRO* 1 UNITS UNIT SUBCUT SCH ×3 (08:11→17:49)
[2019-06-05] MEDS: Aspirin 81 mg CHEW TAB* 81 MG TAB.CHEW PO SCH (08:11)
[2019-06-05] MEDS: Gabapentin CAP(*) 300 MG PO SCH ×2 (08:11→20:19)
[2019-06-05] MEDS: Insulin NPH(*) 1 UNITS UNIT SUBCUT SCH ×2 (08:11→17:50)
[2019-06-05] MEDS: predniSONE TAB* 5 MG PO SCH (08:11)
[2019-06-05] MEDS ORDERED: Clopidogrel TAB* 300 MG PO ONE (08:55)
[2019-06-05] MEDS: Metoprolol Succinate XL TAB* 25 MG PO SCH (09:05)
--- NOTE | 2019-06-05 09:15 | PN ---
Subjective Date of Service: 06/05/19 Interval History: Pt states she had SOB last night with ambulation. She attributes this to brillinta; she will d/c this and start clopidogrel. She states that nitro relieved SOB. Pt denies CP. Pt has a chronic wound to RLE anteriorly; she followed with [facility] in the past and was discharged approximately 2 weeks ago. Pt reports slow wound healing over last 4 months, which is expected. She c/o back pain, relieved with Tylenol; thinks this is due to hospital bed. No BM in 2 days. She has no other complaints. Objective Active Medications: Acetaminophen (Tylenol Tab*) 650 mg PO Q4H PRN Aspirin (Aspirin 81 Mg Chew Tab*) 81 mg PO DAILY CLAUDIA Atorvastatin Calcium (Lipitor*) 80 mg PO 1700 CLAUDIA Clopidogrel Bisulfate (Plavix Tab*) 75 mg PO DAILY CLAUDIA Dextrose (Dextrose 50% Vial 50 Ml*) 25 ml IV PUSH .FOR FS < 60 - SS PRN Gabapentin (Neurontin Cap(*)) 300 mg PO BID CLAUDIA Insulin Human Lispro (Humalog*) 0 units SUBCUT AC CLAUDIA; Protocol Insulin Human NPH (Insulin Nph(*)) 30 units SUBCUT 0700,1500 CLAUDIA Metoprolol Succinate (Toprol Xl Tab*) 12.5 mg PO DAILY CLAUDIA Nitroglycerin (Nitroglycerin Tab 0.4 Mg*) 0.4 mg SL Q5M PRN Pantoprazole Sodium (Protonix Tab*) 40 mg PO DAILY CLAUDIA Prednisone (Deltasone Tab*) 5 mg PO DAILY [facility] Vital Signs: Temp Pulse Resp BP Pulse Ox 98 F 62 18 115/59 95 06/05/19 07:28 06/05/19 09:00 06/05/19 09:00 06/05/19 08:30 06/05/19 09:00 Oxygen Devices in Use Now: None Appearance: Pt is sitting up in bed with HOB elevated. She is in no acute distress, resting comfortably. Eyes: No Scleral Icterus, PERRLA Ears/Nose/Mouth/Throat: NL Teeth, Lips, Gums, Clear Oropharnyx, Mucous Membranes Moist Neck: NL Appearance and Movements; NL JVP, Trachea Midline Respiratory: Symmetrical Chest Expansion and Respiratory Effort, Clear to Auscultation Cardiovascular: NL Sounds; No Murmurs; No JVD, RRR, No Edema Abdominal: NL Sounds; No Tenderness; No Distention, No Hepatosplenomegaly Extremities: No Edema, No Clubbing, Cyanosis, - - R anterior hawk with healing wound- no erythema, drainage, edema. R great toe partial amputation. Neurological: Alert and Oriented x 3 Result Diagrams: 06/05/19 05:38 06/05/19 05:38 Microbiology and Other Data: Microbiology 06/04/19 03:30 Nasal Screen MRSA (PCR) - Final Nasal Mrsa Not Detected Assess/Plan/Problems-Billing Assessment: 64yof PMHx DM, angina, AF, CHF, HLD, HTN presents with CP found to have STEMI on EKG, underwent heart cath with LAD stent placement. - Patient Problems (1) S/P cardiac cath Comment: -Cardiac cath with LAD stent placement 06/04 -Management per cardiology -Repeat echo shows EF 50-55% (previously 55-60%); wall motion abnormalities -Brilinta to clopidogrel (2) Afib Comment: - Continue metoprolol - Hold warfarin due to supratherapeutic INR - Monitor INR daily - Cardiology considering change to Eliquis at discharge (3) Diabetes mellitus Comment: -HA1c today -NPH at home dose 30 BID with meals -FS ACHS with lispro ss coverage -Holding invokana, liraglutide (4) Diabetic neuropathy Comment: -Gabapentin (5) Wegeners granulomatosis Comment: - Continue prednisone (6) DVT prophylaxis Comment: -INR supratherapeutic; continue to hold Coumadin -Recheck INR daily (7) Full code status Status and Disposition: Inpatient. Discharge per cardiology.
[2019-06-05] MEDS: Nitroglycerin TAB 0.4 MG* 0.4 MG TAB SL PRN (12:50)
[2019-06-05] MEDS: Atorvastatin* 80 MG TAB PO SCH (17:49)
[2019-06-06 06:26] LABS: INR 3.14 (0.82-1.09)
[2019-06-06] MEDS: Pantoprazole TAB * 40 MG TAB PO SCH (08:10)
[2019-06-06] MEDS: Aspirin 81 mg CHEW TAB* 81 MG TAB.CHEW PO SCH (08:10)
[2019-06-06] MEDS: Gabapentin CAP(*) 300 MG PO SCH ×2 (08:11→21:46)
[2019-06-06] MEDS: Clopidogrel TAB* 75 MG PO SCH (08:11)
[2019-06-06] MEDS: Metoprolol Succinate XL TAB* 25 MG PO SCH (08:11)
[2019-06-06] MEDS: predniSONE TAB* 5 MG PO SCH (08:11)
[2019-06-06] MEDS: Insulin NPH(*) 1 UNITS UNIT SUBCUT SCH ×2 (09:23→14:54)
[2019-06-06] MEDS: Insulin LISPRO* 1 UNITS UNIT SUBCUT SCH ×3 (09:23→16:47)
--- NOTE | 2019-06-06 10:15 | PN ---
Subjective Date of Service: 06/06/19 Interval History: Pt c/o SOB with ambulation and getting up to go to BR; denies pleuritic chest pain, but notes chest heaviness at times. She had mild nausea this a.m., relieved with dewey oliva. She c/o headache, constipation and notes she has not had a BM in 3 days. She feels her abd is distended and feels she is "full of fluid." She also c/o headache and difficulty sleeping; she typically takes Buspirone at home, which she has not had during this admission. She denies dizziness, lightheadedness, LE edema; no other complaints today. Objective Active Medications: Acetaminophen (Tylenol Tab*) 650 mg PO Q4H PRN Aspirin (Aspirin 81 Mg Chew Tab*) 81 mg PO DAILY [facility] Atorvastatin Calcium (Lipitor*) 80 mg PO 1700 [facility] Clopidogrel Bisulfate (Plavix Tab*) 75 mg PO DAILY CLAUDIA Dextrose (Dextrose 50% Vial 50 Ml*) 25 ml IV PUSH .FOR FS < 60 - SS PRN Docusate Sodium (Colace Cap*) 100 mg PO BID PRN Gabapentin (Neurontin Cap(*)) 300 mg PO BID CLAUDIA Insulin Human Lispro (Humalog*) 0 units SUBCUT AC CLAUDIA; Protocol Insulin Human NPH (Insulin Nph(*)) 30 units SUBCUT 0730,1500 [facility] Isosorbide Mononitrate (Imdur Er Tab*) 15 mg PO DAILY [facility] Metoprolol Succinate (Toprol Xl Tab*) 12.5 mg PO DAILY [facility] Nitroglycerin (Nitroglycerin Tab 0.4 Mg*) 0.4 mg SL Q5M PRN Pantoprazole Sodium (Protonix Tab*) 40 mg PO DAILY [facility] Prednisone (Deltasone Tab*) 5 mg PO DAILY [facility] Vital Signs: Temp Pulse Resp BP Pulse Ox 96.9 F 64 16 102/67 96 06/06/19 07:44 06/06/19 07:30 06/06/19 07:30 06/06/19 07:30 06/06/19 07:30 Oxygen Devices in Use Now: None Appearance: Pt is sitting in chair with LE at floor. She is breathing comfortably, resting, in no acute distress. Eyes: No Scleral Icterus, PERRLA Ears/Nose/Mouth/Throat: NL Teeth, Lips, Gums, Clear Oropharnyx, Mucous Membranes Moist Neck: NL Appearance and Movements; NL JVP, Trachea Midline Respiratory: Symmetrical Chest Expansion and Respiratory Effort, Clear to Auscultation - No rhonchi, wheeze, rales. Cardiovascular: NL Sounds; No Murmurs; No JVD - Distant, RRR, No Edema Abdominal: NL Sounds; No Tenderness; No Distention, No Hepatosplenomegaly Extremities: No Edema, No Clubbing, Cyanosis Neurological: Alert and Oriented x 3, - - CN II-XII grossly intact Result Diagrams: 06/05/19 05:38 06/05/19 05:38 Microbiology and Other Data: Microbiology 06/04/19 03:30 Nasal Screen MRSA (PCR) - Final Nasal Mrsa Not Detected Assess/Plan/Problems-Billing Assessment: 64yof PMHx DM, angina, AF, CHF, HLD, HTN presents with CP found to have STEMI on EKG, underwent heart cath with LAD stent placement. - Patient Problems (1) Shortness of breath Comment: -SOB with ambulation -CXR ordered (2) S/P cardiac cath Comment: -Cardiac cath with LAD stent placement 06/04 -Management per cardiology -Repeat echo shows EF 50-55% (previously 55-60%); wall motion abnormalities -Brilinta (3) Afib Comment: - Continue metoprolol - Hold warfarin due to supratherapeutic INR - Monitor INR daily - Cardiology considering change to Eliquis at discharge (4) Diabetes mellitus Comment: -HA1c 8.2 -NPH at home dose 30 BID with meals -FS ACHS with lispro ss coverage -Holding invokana, liraglutide (5) Diabetic neuropathy Comment: -Gabapentin (6) Wegeners granulomatosis Comment: - Continue prednisone (7) DVT prophylaxis Comment: -INR supratherapeutic; continue to hold Coumadin -Recheck INR daily (8) Full code status Status and Disposition: Inpatient. Discharge per cardiology.
[2019-06-06] MEDS ORDERED: Polyethylene Glycol 3350* 17 GM PACKET PO PRN (10:17)
[2019-06-06] MEDS ORDERED: Senna TAB 8.6 mg* TAB PO PRN (10:17)
[2019-06-06] MEDS: Isosorbide Mononitrate ER TAB* 30 MG PO SCH (11:47)
[2019-06-06] MEDS: Acetaminophen TAB* 325 MG PO PRN ×2 (14:53→21:54)
[2019-06-06] MEDS: Docusate CAP* 100 MG PO PRN (16:13)
[2019-06-06] MEDS: Atorvastatin* 80 MG TAB PO SCH (16:51)
[2019-06-06] MEDS: busPIRone TAB* 30 MG PO SCH (21:46)
[2019-06-07] MEDS: Insulin LISPRO* 1 UNITS UNIT SUBCUT SCH ×3 (08:11→15:25)
[2019-06-07] MEDS: Insulin NPH(*) 1 UNITS UNIT SUBCUT SCH ×2 (08:12→15:30)
[2019-06-07] MEDS: Metoprolol Succinate XL TAB* 25 MG PO SCH (08:13)
[2019-06-07] MEDS: Clopidogrel TAB* 75 MG PO SCH (08:13)
[2019-06-07] MEDS: Isosorbide Mononitrate ER TAB* 30 MG PO SCH (08:14)
[2019-06-07] MEDS: Gabapentin CAP(*) 300 MG PO SCH ×2 (08:16→20:43)
[2019-06-07] MEDS: Aspirin 81 mg CHEW TAB* 81 MG TAB.CHEW PO SCH (08:16)
[2019-06-07] MEDS: Pantoprazole TAB * 40 MG TAB PO SCH (08:17)
[2019-06-07] MEDS: predniSONE TAB* 5 MG PO SCH (08:17)
[2019-06-07] MEDS: Docusate CAP* 100 MG PO PRN ×2 (08:47→20:42)
[2019-06-07 08:48] LABS: INR 2.12 (0.82-1.09)
[2019-06-07] MEDS ORDERED: Influenza VAC *QUAD* 2019-20* 0.5 ML SYRINGE IM ONE (09:00)
[2019-06-07] MEDS: Magnesium Hydroxide LIQ* 30 ML UDC PO PRN ×2 (12:22→20:42)
--- NOTE | 2019-06-07 13:15 | DS ---
TRANSFER OF CARE SUMMARY: Transfer of care summary of the hospitalization to date. DATE OF ADMISSION: 06/04/19 DATE OF TRANSFER OF PATIENT CARE TO HOSPITALIST SERVICE: 06/07/19 CURRENT CARDIAC DIAGNOSES: 1. Acute coronary syndrome. 2. Stenotic coronary artery disease. 3. Chronic atrial fibrillation. 4. Hyperlipidemia. 5. Sleep apnea. 6. Diabetes type 2. 7. Obesity. 8. Erickson's granulomatosis. 9. Diabetic neuropathy. 10. Spinal stenosis. PROCEDURES DONE DURING THE HOSPITALIZATION: Cardiac catheterization with intervention into mid LAD with placement of a 3.5 x 12 mm long Synergy drug- eluting stent in the mid LAD. Also during the hospitalization a transthoracic echocardiogram on 06/04/19 showing hypokinesis of the distal anterior apical inferior, distal inferior, inferior septal area with EF of 50% to 55% mild mitral regurgitation, mild tricuspid regurgitation. HOSPITAL COURSE: The patient is a 64-year-old female who presented with significant chest discomfort and abnormal EKG, which was initially called as an acute ST segment elevation myocardial infarction to the inferior wall by the emergency room physician. She was seen and taken to the cardiovascular lab emergently despite the fact that her INR was significantly elevated at greater than 4. Radial artery approach was able to be used and she was found to have a critical 95% mid LAD lesion and underwent successful stenting. Echocardiogram demonstrated low normal left ventricular systolic function, but with focal wall motion abnormality. Interestingly, during the hospitalization her cardiac enzyme, which was normal on admission peaked to a troponin of 0.72. Her CPKs were totally normal and these were minimally elevated. During the course of the hospitalization, she was seen in consultation by the hospitalist for diabetic management and by Dr. Kely Morrison, Hematology/Oncology for markedly elevated INR, which had increased higher to 5 range the day after cardiac catheterization. Decision was made to let it drift down and consider starting a NOAC once she was at 2 or under. During the hospital course, she did well from a cardiac stand point, but in general was very slow to be up and about. Rehab worked with her and felt she was a poor candidate for returning immediately home. Her INR eventually decreased and at the day of transfer of care to the hospitalist on 06/07/19, her INR was found to be 2.12. Physician assistant business manager, Lois Recio was kind enough to take over management of the patient with us secondary providing on the case from a cardiac standpoint and from cardiac standpoint is stable. I explained to her that I would consider starting Eliquis 5 mg twice a day and stopping her aspirin therapy and using a combination of the Eliquis with the 75 mg of clopidogrel a day to give the lowest risk of bleeding yet stable cardiac management in light of the Rolando trial. In the meantime, her other medications should be continued as they are. MEDICATIONS ON THE DAY OF TRANSFER OF SERVICE: Included: 1. Aspirin 81 mg a day which will be stopped. 2. Atorvastatin 80 mg a day. 3. Clopidogrel 75 mg a day. 4. She is on BuSpar 30 mg p.o. at bedtime. 5. She is on gabapentin 300 mg twice a day. 6. Insulin NPH 30 units subcu at 7:30 a.m. and 1500. 7. Isosorbide mononitrate 15 mg a day. 8. Toprol-XL 12.5 mg a day. 9. Nitroglycerin as needed. 10. Pantoprazole 40 mg a day. 11. Prednisone 5 mg a day. We will continue watching along with the hospitalist service from a cardiac standpoint as needed. PHYSICAL EXAMINATION: On the day of transfer of service to the hospitalist showed a vital signs anywhere from 90 to 100 systolic over 56, pulse was in the 60s, respirations 18, O2 saturation 98%. She was resting comfortably in no obvious acute distress. Lungs were clear. Heart had a somewhat regular rate, although was distant in nature. No significant murmur. Abdomen was morbidly obese. Extremities were without significant pitting edema, although they are heavy in nature. There was ecchymosis noted from IV and blood drawing sticks. The right radial artery area had minimal ecchymosis. There was no hematoma and there was good antegrade flow on reverse Satish sign. Neuro: The patient alert and oriented. Musculoskeletal: Moves all extremities appropriately. Psychiatric: Normal affect. DIAGNOSTIC STUDIES: EKG was paced rhythm and showed T wave inversion in precordial leads. At this point in time, she will be followed by the hospitalist with our assistance as needed. [id number]/[facility] #: [id number] MTDD
[2019-06-07] MEDS: Atorvastatin* 80 MG TAB PO SCH (16:53)
--- NOTE | 2019-06-07 17:08 | PN ---
Subjective Date of Service: 06/07/19 Interval History: Pt feeling well today. She does continue to have SOB with ambulations, although she notes a slight improvement in that she is able to tolerate slightly longer distances. She is agreeable to [facility] and would prefer PMRU; referral in. She notes she has had no BM since Saturday. She has no other complaints today. Objective Active Medications: Acetaminophen (Tylenol Tab*) 650 mg PO Q4H PRN Apixaban (Eliquis*) 5 mg PO BID [facility] Atorvastatin Calcium (Lipitor*) 80 mg PO 1700 [facility] Buspirone HCl (Buspar Tab*) 30 mg PO BEDTIME [facility] Clopidogrel Bisulfate (Plavix Tab*) 75 mg PO DAILY [facility] Dextrose (Dextrose 50% Vial 50 Ml*) 25 ml IV PUSH .FOR FS < 60 - SS PRN Docusate Sodium (Colace Cap*) 100 mg PO BID PRN Gabapentin (Neurontin Cap(*)) 300 mg PO BID [facility] Insulin Human Lispro (Humalog*) 0 units SUBCUT AC CLAUDIA; Protocol Insulin Human NPH (Insulin Nph(*)) 30 units SUBCUT 0730,1500 [facility] Isosorbide Mononitrate (Imdur Er Tab*) 15 mg PO DAILY [facility] Magnesium Hydroxide (Milk Of Magnesia Liq*) 30 ml PO BID PRN Metoprolol Succinate (Toprol Xl Tab*) 12.5 mg PO DAILY [facility] Nitroglycerin (Nitroglycerin Tab 0.4 Mg*) 0.4 mg SL Q5M PRN Pantoprazole Sodium (Protonix Tab*) 40 mg PO DAILY [facility] Polyethylene Glycol/Electrolytes (Miralax*) 17 gm PO DAILY PRN Prednisone (Deltasone Tab*) 5 mg PO DAILY [facility] Senna (Senokot 8.6 Mg Tab*) 1 tab PO BEDTIME PRN Vital Signs: Temp Pulse Resp BP Pulse Ox 98.8 F 59 18 109/55 98 06/07/19 15:36 06/07/19 15:36 06/07/19 15:36 06/07/19 15:36 06/07/19 15:36 Oxygen Devices in Use Now: None Appearance: Pt is sitting up in bed, HOB elevated. She is resting, breathing comfortably, in no acute distress. Eyes: No Scleral Icterus, PERRLA Ears/Nose/Mouth/Throat: NL Teeth, Lips, Gums, Clear Oropharnyx, Mucous Membranes Moist Neck: NL Appearance and Movements; NL JVP, Trachea Midline Respiratory: Symmetrical Chest Expansion and Respiratory Effort, Clear to Auscultation Cardiovascular: NL Sounds; No Murmurs; No JVD, RRR, - - Trace LE edema. Abdominal: NL Sounds; No Tenderness; No Distention Extremities: No Clubbing, Cyanosis Neurological: Alert and Oriented x 3 Result Diagrams: 06/05/19 05:38 06/05/19 05:38 Microbiology and Other Data: Microbiology 06/04/19 03:30 Nasal Screen MRSA (PCR) - Final Nasal Mrsa Not Detected Assess/Plan/Problems-Billing Assessment: 64yof PMHx DM, angina, AF, CHF, HLD, HTN presents with CP found to have STEMI on EKG, underwent heart cath with LAD stent placement. - Patient Problems (1) Shortness of breath Comment: -SOB with ambulation -CXR 2V ordered, shows no active cardiopulm disease -Continue to work with PT -Awaiting ERIC placement (2) S/P cardiac cath Comment: -Cardiac cath with LAD stent placement 06/04 -Management per cardiology -Repeat echo shows EF 50-55% (previously 55-60%); wall motion abnormalities -Brilinta; hold aspirin and start Eliquis tomorrow (3) Afib Comment: - Continue metoprolol - Warfarin d/c due to supratherapeutic INR; now within range for INR on coumadin - Start Eliquis in a.m. (4) Diabetes mellitus Comment: -Controlled -HA1c 8.2 -NPH at home dose 30 BID with meals -FS ACHS with lispro ss coverage -Holding invokana, liraglutide (5) Diabetic neuropathy Comment: -Gabapentin (6) Wegeners granulomatosis Comment: - Continue prednisone (7) DVT prophylaxis Comment: -Start Eliquis in a.m. (8) Full code status Status and Disposition: Inpatient. Awaiting ERIC placement.
[2019-06-07] MEDS: Acetaminophen TAB* 325 MG PO PRN (18:46)
[2019-06-07] MEDS: busPIRone TAB* 30 MG PO SCH (20:42)
[2019-06-08 05:49] LABS: ABS Basophils 0.1 10^3/ul (0-0.2); ABS Eosinophils 0.1 10^3/ul (0-0.6); ABS Lymphocytes 2.1 10^3/ul (1.0-4.8); ABS Monocytes 0.9 10^3/ul (0-0.8); ABS Neutrophils 4.3 10^3/ul (1.5-7.7); Eosinophil % 1.3 %; Hematocrit 33 % (35-47); Hemoglobin 10.8 g/dL (12.0-16.0); Lymphocyte % 28.6 %; Mean Corpuscular HGB Conc 33 g/dL (31-36); Mean Corpuscular Hemoglobin 28 pg (27-31); Mean Corpuscular Volume 84 fL (80-97); Mean Platelet Volume 6.9 fL (7.4-10.4); Platelet Count 312 10^3/uL (150-450); Red Blood Count 3.88 10^6 /uL (3.70-4.87); Red Cell Distribution Width 16 % (10-15); White Blood Count 7.4 10^3/uL (3.5-10.8)
[2019-06-08 06:00] LABS: Anion Gap 4 mmol/L (2-11); BUN/Creatinine Ratio 23.9 (8-20); Blood Urea Nitrogen 21 mg/dL (6-24); CO2 Carbon Dioxide 31 mmol/L (22-32); Calcium 9.2 mg/dL (8.6-10.3); Chloride 106 mmol/L (101-111); EGFR African American 78.3 (>60); EGFR Non-African American 64.7 (>60); Glucose 98 mg/dL (70-100); Potassium 4.1 mmol/L (3.5-5.0); Sodium 141 mmol/L (135-145)
[2019-06-08 08:06] LABS: % Iron Saturation 11 % (15-55); Iron 41 ug/dL (50-212); Total Iron Binding Capacity 363 mcg/dL (250-450); Transferrin 259 mg/dL (203-362)
[2019-06-08 08:28] LABS: Ferritin 150.9 ng/mL (11-307)
[2019-06-08 08:31] LABS: Folate > 20.00 ng/mL (>3.99)
[2019-06-08] MEDS ORDERED: Apixaban* 5 MG TAB PO SCH (09:00)
[2019-06-08] MEDS: Pantoprazole TAB * 40 MG TAB PO SCH (09:39)
[2019-06-08] MEDS: Clopidogrel TAB* 75 MG PO SCH (09:39)
[2019-06-08] MEDS: predniSONE TAB* 5 MG PO SCH (09:39)
[2019-06-08] MEDS: Isosorbide Mononitrate ER TAB* 30 MG PO SCH (09:40)
[2019-06-08] MEDS: Gabapentin CAP(*) 300 MG PO SCH (09:40)
[2019-06-08] MEDS: Metoprolol Succinate XL TAB* 25 MG PO SCH (09:41)
[2019-06-08] MEDS: Insulin LISPRO* 1 UNITS UNIT SUBCUT SCH ×2 (09:45→13:02)
[2019-06-08] MEDS: Insulin NPH(*) 1 UNITS UNIT SUBCUT SCH (09:45)
[2019-06-08 13:35] VITALS: BP 119/68
--- NOTE | 2019-06-08 14:20 | DS ---
CC: Long Calderón MD; Kely Morrison MD; Gin Alvarado MD; Dr. Ram.* DISCHARGE SUMMARY: DATE OF ADMISSION: 06/04/19 DATE OF DISCHARGE: 06/08/19 PRIMARY CARE PROVIDER: Long Calderón MD. OTHER PROVIDERS: Kely Morrison MD; Gin Alvarado MD, Dr. Ram. ATTENDING PHYSICIAN: Walter Degroot MD * (dictated by JOSÉ Rodriguez) PRIMARY DIAGNOSES: 1. ST segment elevation myocardial infarction with LAD stent placement. 2. Hyperlipidemia. SECONDARY DIAGNOSES: 1. Atrial fibrillation with AV yayo ablation, permanent pacemaker placement. 2. Hyperlipidemia. 3. Diabetes mellitus, insulin-dependent. 4. Erickson's granulomatosis. 5. Obstructive sleep apnea. 6. Obesity. 7. Neuropathy. 8. Spinal stenosis. STUDIES WHILE IN THE HOSPITAL: 1. Transthoracic echocardiogram. In summary, LV normal cavity size, mild concentric hypertrophy, systolic function lower limits abnormal, EF 50% to 55% . Hypokinesis of mid apical inferolateral, inferior and inferoseptal myocardium. Hypokinesis of the mid anteroseptal myocardium. Left atrium moderately dilated. Right atrium mildly dilated. Mild mitral valve regurgitation, mild tricuspid valve regurgitation. 2. Cardiac catheterization. Overall assessment: Successful intervention into critically stenosed mid LAD with primary stenting with a 3.5 x 12 mm long Synergy drug eluting stent post dilated 3.6 to 3.65 mm. Dual antiplatelet therapy maintained. Let INR drift down toward therapeutic range, at which point Vasc Band will be completely removed. Consider switching from Brilinta to clopidogrel to avoid triple therapy with Brilinta. Discussed with Dr. Alvarado about Coumadin versus NOAC. In the meantime, aggressive risk management with statin therapy, beta- johnson, potentially JOANNE inhibitor depending on LV function. Obtain echocardiogram. DISCHARGE MEDICATIONS: Home medications: 1. Acetaminophen 1 to 2 tabs p.o. q.4 hours p.r.n. pain. 2. Buspirone 30 mg p.o. at bed time. 3. Canagliflozin 300 mg p.o. daily. 4. Gabapentin 300 mg p.o. b.i.d. 5. Insulin Lispro 20 units subcu a.c. 6. Insulin NPH 30 units subcu b.i.d. with meals. 7. Liraglutide 1.8 mg subcu. 8. Prednisone 5 mg p.o. daily. Potwin Medication: 1. Apixaban 5 mg p.o. b.i.d. 2. Atorvastatin 80 mg p.o. at bedtime. 3. Clopidogrel 75 mg p.o. daily. 4. Isosorbide mononitrate ER 15 mg p.o. daily. 5. Metoprolol succinate 12.5 mg p.o. daily. 6. Pantoprazole 40 mg p.o. daily. Discontinued Home Medications: 1. Warfarin. 2. Atenolol. 3. Omeprazole. HISTORY OF PRESENT ILLNESS/HOSPITAL COURSE: Ms. Leon is a 64-year-old female with a past medical history of hyperlipidemia, atrial fibrillation on Coumadin, obesity, insulin- dependent diabetes mellitus, who presented to the ER on with complaints of chest discomfort and shortness of breath. For full and complete details, please see the history and physical dictated by Dr. Dumont, but in short, the patient presents with these symptoms. She states pain was intermittent. An EKG was obtained in the ER and revealed ST-segment elevation inferior wall. A bedside echo was performed and found significant hypokinesis to distal anterior apical wall. Her initial troponin was negative, but then began to rise. She was taken to the cardiac fence laborer despite a supratherapeutic INR. She was given 2.5 mg p.o. vitamin K prior to the procedure. In the fence laborer, the LAD was stented with a drug- eluting stent to the mid LAD due to 95% stenosis. This was successfully completed. Her INR was checked daily. Once this came into therapeutic range at 2.2, it was recommended to start apixaban the following day. Laboratory data was obtained. She had an LDL of 88. Her hemoglobin A1c was 8.2. The patient recovered from her stent placement and chest pain, but continued to have shortness of breath with exertion. She worked with PT throughout her stay. There were recommendations that she go to a subacute rehab which she was agreeable to. On the day of her discharge, the patient worked with Physical Therapy and she was found to have improvement. Recommendations were made for home physical therapy evaluation. At this time, the patient is very eager to be discharged home. She states she will be staying with her daughter and does not feel the need or desire to go to a subacute rehab at this point. She will be discharged to home with her daughter. At the time of discharge, the patient denies headache, dizziness, lightheadedness, chest pain. She has no shortness of breath at rest, but has some shortness of breath with activity. Her chest x- ray from 1 day ago was within normal limits. She denies abdominal pain, nausea , vomiting, diarrhea, or constipation. Last bowel movement was today. She denies calf pain or tenderness. She denies myalgias or arthralgias. Please note that Dr. Dumont had dictated a transfer of care summary on 06/07/19 , describing the details of her cardiac interventions throughout the stay. Ms. Leon is stable for discharge to home. PHYSICAL EXAMINATION: Vital Signs: Temperature 98.8 temporal , heart rate 63, respiratory rate 20, oxygen saturation 100% on room air, blood pressure 102/63. General: Ms. Leon is a well-developed, well-nourished, middle-aged white woman who is sitting up in bed. She appears to be in no acute distress. She is pleasant and cooperative. HEENT: PERRL. EOMI, nonicteric sclerae. Hearing is grossly intact. Oral mucous membranes are moist. There are no lesions. The tongue is at midline. The pharynx is clear. Symmetrical elevation of the palate. Cardiovascular: Regular rate and rhythm without murmurs, rubs, clicks or gallops. S1, S2 present, but distant sounding. No JVD. No peripheral edema. Pulmonary: Symmetrical chest expansion without use of accessory muscles. Lungs clear to auscultation bilaterally without rhonchi, wheezes, or rubs. There are no rales. No digital clubbing or cyanosis. Abdomen: Obese, bowel sounds in all quadrants. The abdomen is soft. There is no tenderness to palpation. No fluid wave. Musculoskeletal: Full range of motion without pain or deformity. There is a healing wound on the right anterior hawk that is nonerythematous and nonedematous without drainage. Neuro: The patient is awake , she is alert and oriented x3 with cranial nerves grossly intact. Muscle strength is 5/5 bilaterally in upper and lower extremities. Muscle strength is equal. DISCHARGE PLAN: Ms. Leon will be discharged to home. CONDITION: Good. DIET: 1. Heart healthy. 2. ADA. MEDICATIONS: 1. Discontinue warfarin, atenolol, omeprazole. 2. Continue Lipitor, Plavix, Eliquis, metoprolol, Imdur. 3. Discontinue omeprazole and replace with pantoprazole. EDUCATION: 1. Follow up with primary care provider in 4 to 7 days. 2. Follow up with Dr. Ram as scheduled on 06/10/19. 3. Followup with [facility] as scheduled. 4. Outpatient/home physical therapy. 5. Follow cardiac catheterization discharge instructions per Dr. Dumont. 6. Return to the ER or nearest hospital if she experienced any worsening of symptoms, chest pain or discomfort, jaw pain, arm pain, shortness of breath, dizziness, lightheadedness, loss of consciousness, high fevers, chills, night sweats, or any other worrisome signs or symptoms. This is a summarized report of a complex medical history and hospital stay. For further details, please see the entire medical record. TIME SPENT: Approximately 40 minutes was spent on this discharge; greater than half that time was spent faai-ga-resy with patient discussing discharge plans and instructions. JOSÉ FRANCO [id number]/[facility] #: [id number] EDGAR
== END 2019-06-08 15:40 | disposition home health service (06) | DRG 247 ==
LOC: ED 01:17 → CHICATH 01:44 → ICU 03:36 → MEDTELE 06-06 09:49
PROVIDERS: ADMIT Internal Medicine Cardiovascular Disease; ATTEND Internal Medicine
PROC: B2111ZZ Fluoroscopy of Multiple Coronary Arteries using Low Osmolar Contrast (ICD-10-PCS; 2019-06-04)
PROC: 027034Z Dilation of Coronary Artery, One Artery with Drug-eluting Intraluminal Device, Percutaneous Approach (ICD-10-PCS; principal; 2019-06-04 02:15)
DX: I21.19 ST elevation (STEMI) myocardial infarction involving other coronary artery of inferior wall (principal); M31.30 Wegener's granulomatosis without renal involvement; L97.819 Non-pressure chronic ulcer of other part of right lower leg with unspecified severity; E78.5 Hyperlipidemia, unspecified; G47.33 Obstructive sleep apnea (adult) (pediatric); E11.40 Type 2 diabetes mellitus with diabetic neuropathy, unspecified; M48.00 Spinal stenosis, site unspecified; I08.1 Rheumatic disorders of both mitral and tricuspid valves; I25.10 Atherosclerotic heart disease of native coronary artery without angina pectoris; I48.2 Chronic atrial fibrillation; I50.9 Heart failure, unspecified; E78.00 Pure hypercholesterolemia, unspecified; M19.072 Primary osteoarthritis, left ankle and foot; M19.071 Primary osteoarthritis, right ankle and foot; E11.65 Type 2 diabetes mellitus with hyperglycemia; M19.042 Primary osteoarthritis, left hand; M19.041 Primary osteoarthritis, right hand; F41.9 Anxiety disorder, unspecified; F32.9 Major depressive disorder, single episode, unspecified; E66.01 Morbid (severe) obesity due to excess calories; K59.00 Constipation, unspecified; R51 Headache; M54.9 Dorsalgia, unspecified; R79.1 Abnormal coagulation profile; Z95.0 Presence of cardiac pacemaker; Z68.35 Body mass index [BMI] 35.0-35.9, adult; Z79.4 Long term (current) use of insulin; Z79.52 Long term (current) use of systemic steroids; Z79.01 Long term (current) use of anticoagulants; Z79.02 Long term (current) use of antithrombotics/antiplatelets; Z88.8 Allergy status to other drugs, medicaments and biological substances; Z88.2 Allergy status to sulfonamides; Z88.1 Allergy status to other antibiotic agents; Z91.040 Latex allergy status; Z88.5 Allergy status to narcotic agent; Z86.711 Personal history of pulmonary embolism; Z90.49 Acquired absence of other specified parts of digestive tract; Z90.710 Acquired absence of both cervix and uterus; Z98.51 Tubal ligation status; Z89.422 Acquired absence of other left toe(s); Z89.411 Acquired absence of right great toe; Z82.5 Family history of asthma and other chronic lower respiratory diseases
CPT/HCPCS: 36415; 71045; 71046; 76937; 80048; 80053; 80061; 82550; 82553; 82607; 82728; 82746; 83036; 83540; 83550; 83605; 83721; 83880; 84484; 85025; 85060; 85347; 85610; 85730; 87641; 90686; 93005; 93306; 96372; 96374; 96375; 99223; 99285; A9270-GY; C1725; C1769; C1876; C8929; C9606-LD; G8978-GP-CK; G8979-GP-CI; G8987-GO-CI; G8988-GO-CI; G8989-GO-CI; J0153; J1644; J2270; J2405; J7512

== ENCOUNTER 2019-07-31 00:02 | Emergency (ER) | payer MEDICARE, OTHER ==
--- OUTSIDE RECORDS SUMMARY | 2019-07-31 01:14 | XMS REPORT ---
:1955 Author Organization [facility] Care Team Providers Name Role Phone Unavailable Unavailable Unavailable Problems Condition Condition Condition Status Onset Resolution Last Treating Comments Name Details Category Date Date Treatment Clinician Date Pain frequent Pain Mgmt Active 2018-09 Jacqueline pain 0 [place] 09:15: [id number] Respiratory dyspnea Respirator Active 2018-09 Jacqueline present y 0 [place] 09:15: [id number] Endo/George anti-coagul Endo/George Active 2018-09 Jacqueline ation 0- [place] therapy 09:15: [id number] Integument skin Integument Active 2018-09 Jacqueline integrity 0- [place] risk 09:15: [id number] Nutrition nutritional Nutrition Active 2018-09 Jacqueline restriction 0- [place] s 09:15: [id number] Elimination urinary Eliminatio Active 2018- Jacqueline incontinenc n 0-07 [place] e 09:15: [id number] Neuro anxiety Neuro/Emot Active 2018-09 Jacqueline present ion 007 [place] 09:15: [id number] Neuro depressive Neuro/Emot Active 2018- Jacqueline feelings ion 0-07 [place] present 09:15: [id number] Neuro knowledge/s Neuro/Emot Active 2018-09 Jacqueline kill ion 0-07 [place] deficit: pt 09:15: [id number] 00 Activity ADL Activity Active 2018-09 Jacqueline assistance 0-07 [place] required 09:15: [id number] Activity self-care Activity Active 2018- Jacqueline deficit 0-07 [place] 09:15: [id number] Safety fall risk Safety Active 2018- Jacqueline factor 0-07 [place] present 09:15: [id number] Safety risk for Safety Active 2018- Jacqueline hospitaliza 0- [place] tion 09:15: [id number] Safety can be left Safety Active 2018-09 Jacqueline alone for 0-07 [place] only short 09:15: [id number] periods 00 Medication oral med Meds Active 2018-09 Jacqueline assistance 0-07 [place] required 09:15: [id number] 00 Medication injectable Meds Active 2018-09 Jacqueline med 0-07 [place] assistance 09:15: [id number] required 00 Musculoskel transfer Musculoske Active 2018-09 Jacqueline etal assistance letal 0-07 [place] required 09:15: [id number] Musculoskel requires Musculoske Active 2018-09 Jacqueline etal human letal 0-07 [place] assist to 09:15: [id number] leave home 00 Balance/End balance/after school program coordinator PT/OT: Active 2018-09 Steve urance rdination Balance/En 0-07 [place], deficit durance 13:30: PT 00 [id number] Gait/Locomo gait PT/OT: Active 2018-09 Steve tion deficit Gait/Locom 0-07 [place], problems otion 13:30: PT 00 [id number] Allergies, Adverse Reactions, Alerts Allergy Name Allergy Status Severity Reaction(s) Onset Inactive Treating Comments Type Date Date Clinician albuterol Base Active Unknown Reaction 2018-09 Interface Ingredient Unknown 0-01 latex Base Active Unknown Reaction 2018-09 Unknown Ingredient Unknown 0-01 pregabalin Base Active Unknown Reaction 2018-09 Interface Ingredient Unknown 0-01 codeine Base Active Unknown Reaction 2018-09 Interface Ingredient Unknown 0-01 hydrocodone Base Active Unknown Reaction 2018-09 Interface Ingredient Unknown 0-01 metformin Base Active Unknown Reaction 2018-09 Interface Ingredient Unknown 0-01 Sulfa Unknown Active Unknown Reaction 2018-09 Interface (Sulfonamide Unknown 0-01 Antibiotics) sulfamethoxa Base Active Unknown Reaction 2018-09 Interface zole Ingredient Unknown 0-01 trimethoprim Base Active Unknown Reaction 2018-09 Interface Ingredient Unknown 0-01 Medications Ordered Filled Start Stop Current Ordering Indication Dosage Frequency Signature Comments Components Medication Medication Date Date Medication? Clinician (SIG) Name Name Greg 5 Eliangelis 5 2018-09 2019- Yes Shallish Unknown Unknown mg tablet mg tablet 006-30 Long REDMOND atorvastati atorvastati 2018-09 2019- Yes Shallish Unknown Unknown n 80 mg n 80 mg 06-30 MD,Long tablet tablet clopidogrel clopidogrel 2018-09- Yes Shallish Unknown Unknown 75 mg 75 mg 006-30 MD,Long tablet tablet isosorbide isosorbide 2018-09- Yes Shallish Unknown Unknown mononitrate mononitrate 006-30 MD,Long ER 30 mg ER 30 mg tablet,exte tablet,exte nded nded release 24 release 24 hr hr metoprolol metoprolol 2018-09- Yes Shallish Unknown Unknown succinate succinate 06-30 MD,Long ER 25 mg ER 25 mg tablet,exte tablet,exte nded nded release 24 release 24 hr hr pantoprazol pantoprazol 2018-09- Yes Shallish Unknown Unknown e 40 mg e 40 mg 06-30 MD,Long tablet,viral tablet,viral yed release yed release spironolact spironolact 2018-09- Yes Shallish Unknown Unknown one 100 mg one 100 mg 006-30 MD,Long tablet tablet gabapentin gabapentin 2018-09- Yes Shallish Unknown Unknown 300 mg 300 mg 06-30 MD,Long capsule capsule canaglifloz canaglifloz 2018-09- Yes Shallish Unknown Unknown in 300 mg in 300 mg 06-30 MD,Long tablet tablet predniSONE predniSONE 2018-09- Yes Shallish Unknown Unknown 5 mg tablet 5 mg tablet 06-30 MD,Long busPIRone busPIRone 2018-09- Yes Shallish Unknown Unknown 30 mg 30 mg 06-30 MD,Long tablet tablet liraglutide liraglutide 2018-09- Yes Shallish Unknown Unknown 0.6 mg/0.1 0.6 mg/0.1 006-30 MD,Long mL (18 mg/3 mL (18 mg/3 mL) mL) subcutaneou subcutaneou s pen s pen injector injector HumaLOG HumaLOG 2018-09- Yes Shallish Unknown Unknown KwikPen KwikPen 006-30 MD,Long (U-100) (U-100) Insulin 100 Insulin 100 unit/mL unit/mL subcutaneou subcutaneou s s acetaminoph acetaminoph 2018-09- Yes Shallish Unknown Unknown en 325 mg en 325 mg 06-30 MD,Long tablet tablet HumuLIN HumuLIN 2018-09- Yes Shallish Unknown Unknown 70/30 U-100 70/30 U-100 06-30 MD,Long Insulin 100 Insulin 100 unit/mL unit/mL subcutaneou subcutaneou s s suspension suspension torsemide torsemide 2018-09- Yes Shallish Unknown Unknown 20 mg 20 mg 06-30 MD,Long tablet tablet Vital Signs Vital Name Observation Time Observation Value Comments SYSTOLIC mm[Hg] 2019-06-30 18:08:28 106 mm[Hg] mm[Hg] Method: Sit SYSTOLIC mm[Hg] 2019-06-15 18:08:13 118 mm[Hg] mm[Hg] Method: Stand DIASTOLIC mm[Hg] 2019-06-30 18:08:28 62 mm[Hg] mm[Hg] Method: Sit DIASTOLIC mm[Hg] 2019-06-15 18:08:13 78 mm[Hg] mm[Hg] Method: Stand PULSE 2019-06-30 18:08:28 62 /min /min RESP RATE 2019-06-30 18:08:28 16 /min /min TEMP 2019-06-30 18:08:28 97.2 [degF] Procedures This patient has no known procedures. Results This patient has no known results.
--- OUTSIDE RECORDS SUMMARY | 2019-07-31 01:14 | XMS REPORT | Summary of Care ---
:1955 Author Organization [facility] Address [address] [facility] [place] [address] Care Team Providers Name Role Phone Long Calderón MD Primary Care Provider Reason for Visit Reason Comments Diabetes Mellitus Pt reports checking blood sugar 5-6x daily. Follow Up Encounter Details Date Type Department Care Team Description 07/15/2019 Office Visit [facility], Type 2 diabetes mellitus without complication, without long-term current use of insulin ([facility]) (Primary Dx); [address] [facility], [facility] Type 2 diabetes mellitus with complication, with long-term current use of insulin ([facility]) [place] [address] [place] [address] [place] [address] Allergies Active Allergy Reactions Severity Noted Date Comments Albuterol 11/11/2008 Bactrim 11/11/2008 Lantus Swelling 03/31/2019 Codeine 11/11/2008 Hydrocodone Other 11/11/2008 Nausea vs. Low blood pressure Lyrica Other 12/01/2013 Molina funny Metformin GI Reaction 08/18/2012 documented as of this encounter (statuses as of 07/15/2019) Medications Medication Sig Dispensed Refills Start End Date Status Date predniSONE Take 5 mg by 0 Active (DELTASONE) 1 MG mouth DAILY. Oral Tab Insulin 1 Each by Does 500 Each 3 Active Syringe-Needle not apply route 5 U-100 (BD INSULIN FIVE TIMES SYRINGE ULTRAFINE) DAILY. 31G X 5/16" 1 ML Does not apply MiscIndications: Type 2 diabetes mellitus with complication (HCC) Insulin Pen Needle 1 Each by Does 100 Each 3 Active 32G X 4 MM Does not not apply route 5 apply DIRECTED. MiscIndications: Type 2 diabetes mellitus with complication (HCC) Glucose Blood (TRUE 1 Each by In 0 Active METRIX BLOOD Vitro route SIX GLUCOSE TEST) In TIMES DAILY. Vitro Strip E11.9 test 6 times daily True Metrix test strips Canagliflozin Take 300 mg by 0 Active (INVOKANA) 100 MG mouth DAILY. Oral Tab clotrimazole-betame Apply to area 45 g 3 Active thasone (LOTRISONE) as needed 7 1-0.05 % Apply externally CreamIndications: Type 2 diabetes mellitus with complication, unspecified fci insulin use status diclofenac 4 g by Topical 1 Tube 3 Active (VOLTAREN) 1 % route FOUR 9 Transdermal Gel TIMES DAILY. torsemide (DEMADEX) Take 20 mg by 0 Active 20 MG Oral Tab mouth DAILY. Insulin Lispro Inject 20-90 30 mL 5 Active (HUMALOG KWIKPEN) Units beneath 9 100 UNIT/ML the skin THREE Subcutaneous TIMES DAILY Solution BEFORE MEALS. Pen-injector 20 units base plus sliding scale MDD 90 units. busPIRone (BUSPAR) Take 15 mg by 0 Active 15 MG Oral Tab mouth. 7.5mg qam 30 mg qpm apixaban (ELIQUIS) Take 5 mg by 0 Active 5 MG Oral Tab mouth TWICE DAILY. isosorbide Take 15 mg by 0 Active MONOnitrate (IMDUR) mouth DAILY. 30 MG Oral TABLET SR 24 HR pantoprazole Take 40 mg by 0 Active (PROTONIX) 40 MG mouth DAILY. Oral Tab EC Metoprolol Take 1 Tab by 0 Active Succinate 25 MG mouth DAILY. Oral Capsule ER 24 Hour Sprinkle atorvastatin Take 80 mg by 0 Active (LIPITOR) 80 MG mouth DAILY. Oral Tab spironolactone Take 25 mg by 0 Active (ALDACTONE) 25 MG mouth DAILY. Oral Tab NPH insulin, Inject 30 Units 0 Active INTERMEDIATE - beneath the Acting, (HUMULIN N) skin TWICE 100 UNIT/ML DAILY. Subcutaneous Suspension gabapentin Take 2 Caps by 720 Cap 3 Active (NEURONTIN) 300 MG mouth FOUR 9 Oral TIMES DAILY. CapIndications: Type 2 diabetes mellitus with complication, with long-term current use of insulin (HCC) Liraglutide Inject 1.8 mg 9 Each 4 Active (VICTOZA) 18 MG/3ML beneath the 9 Subcutaneous skin DAILY. Solution Pen-injector lisinopril Take 1 Tab by 0 07/15/20 Discontinued (PRINIVIL, ZESTRIL) mouth DAILY. 19 5 MG Oral Tab potassium chloride Take 1 Tab by 0 07/15/20 Discontinued (MICRO-K) 20 MEQ mouth DAILY. 19 Oral Tab CR atenolol (TENORMIN) Take 1 Tab by 0 07/15/20 Discontinued 25 MG Oral Tab mouth TWICE 19 DAILY. warfarin (COUMADIN) Take 4 mg by 0 07/15/20 Discontinued 5 MG Oral Tab mouth DAILY. 19 Alternates 4 mg and 2 mg every other day Omeprazole Take by mouth. 0 07/15/20 Discontinued (PRILOSEC PO) 19 gabapentin Take 2 Caps by 720 Cap 3 07/15/20 Discontinued (NEURONTIN) 300 MG mouth FOUR 8 19 (Reorder) Oral TIMES DAILY. CapIndications: Type 2 diabetes mellitus with complication, with long-term current use of insulin (HCC) clotrimazole-betame APPLY CREAM 45 Each 3 07/15/20 Discontinued thasone (LOTRISONE) TOPICALLY TO 8 19 1-0.05 % Apply AFFECTED AREA externally NEEDED CreamIndications: Type 2 diabetes mellitus with complication (HCC) VICTOZA 18 MG/3ML INJECT 1.8 MG 9 Each 4 07/15/20 Discontinued Subcutaneous BENEATH THE 9 19 (Reorder) Solution SKIN DAILY Pen-injector documented as of this encounter (statuses as of 07/15/2019) Active Problems Problem Noted Date Pulmonary embolism 11/11/2008 Sarcoidosis 11/11/2008 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 Atrial fibrillation 07/20/2008 Palpitations 07/20/2008 Shortness of breath 07/20/2008 DM (diabetes mellitus) Overview: dx 1994, insulin since documented as of this encounter (statuses as of 07/15/2019) Social History Tobacco Use Types Packs/Day Years [...] Sign Reading Time Taken Comments Blood Pressure 120/78 07/15/2019 12:47 PM EST Pulse 88 07/15/2019 12:47 PM EST Temperature - - Respiratory Rate - - Oxygen Saturation - - Inhaled Oxygen Concentration - - Weight 99.7 kg (219 lb 14.4 oz) 07/15/2019 12:47 PM EST Height 170.2 cm (5' 7") 07/15/2019 12:47 PM EST Body Mass Index 34.44 07/15/2019 12:47 PM EST documented in this encounter Progress Notes Geno Kang FNP - 07/15/2019 1:00 PM EST NAME: Ayanna Leon : 1955 DATE: 07/15/2019 SUBJECTIVE: Ayanna Leon is a 64-y.o. female is here for a follow-up for her Diabetes Mellitus type 2 uncontrolled for >10 years. Seen today at her request post hospitalization for AMI a1C during hospitalization reportedly 7.0. She did not bring in blood sugars for review. She is on new diuretics. Coumadinswitched to eliquis. She is concerned about change in her personality. She changes from "happy" to "mean" Not sure why Current medications, allergies, and all history have been reviewed. Current Outpatient Medications Medication Sig apixaban (ELIQUIS) 5 MG Oral Tab Take 5 mg by mouth TWICE DAILY. atorvastatin (LIPITOR) 80 MG Oral Tab Take 80 mg by mouth DAILY. busPIRone (BUSPAR) 15 MG Oral Tab Take 15 mg by mouth. 7.5mg qam 30 mg qpm Canagliflozin (INVOKANA) 100 MG Oral Tab Take 300 mg by mouth DAILY. clotrimazole-betamethasone (LOTRISONE) 1-0.05 % Apply externally Cream Apply to area as needed diclofenac (VOLTAREN) 1 % Transdermal Gel 4 g by Topical route FOUR TIMES DAILY. gabapentin (NEURONTIN) 300 MG Oral Cap Take 2 Caps by mouth FOUR TIMES DAILY. Glucose Blood (TRUE METRIX BLOOD GLUCOSE TEST) In Vitro Strip 1 Each by In Vitro route SIX TIMES DAILY. E11.9 test 6 times daily True Metrix test strips Insulin Lispro (HUMALOG KWIKPEN) 100 UNIT/ML Subcutaneous Solution Pen- injector Inject 20-90 Units beneath the skin THREE TIMES DAILY BEFORE MEALS. 20 units base plus sliding scale MDD 90 units. Insulin Pen Needle 32G X 4 MM Does not apply Misc 1 Each by Does not apply route DIRECTED. Insulin Syringe-Needle U-100 (BD INSULIN SYRINGE ULTRAFINE) 31G X 5/16" 1 ML Does not apply Misc 1 Each by Does not apply route FIVE TIMES DAILY. isosorbide MONOnitrate (IMDUR) 30 MG Oral TABLET SR 24 HR Take 15 mg by mouth DAILY. Liraglutide (VICTOZA) 18 MG/3ML Subcutaneous Solution Pen-injector Inject 1.8 mg beneath the skin DAILY. Metoprolol Succinate 25 MG Oral Capsule ER 24 Hour Sprinkle Take 1 Tab by mouth DAILY. NPH insulin, INTERMEDIATE - Acting, (HUMULIN N) 100 UNIT/ML Subcutaneous Suspension Inject 30Units beneath the skin TWICE DAILY. pantoprazole (PROTONIX) 40 MG Oral Tab EC Take 40 mg by mouth DAILY. predniSONE (DELTASONE) 1 MG Oral Tab Take 5 mg by mouth DAILY. spironolactone (ALDACTONE) 25 MG Oral Tab Take 25 mg by mouth DAILY. torsemide (DEMADEX) 20 MG Oral Tab Take 20 mg by mouth DAILY. No current facility-administered medications for this visit. Allergies Allergen Reactions Albuterol Bactrim Basaglar Kwikpen [Lantus] Swelling Codeine Hydrocodone Other Nausea vs. Low blood pressure Lyrica Other Molina funny Metformin GI Reaction Past Medical History: [...] file Gets together: Not on file Attends voodoo service: Not on file Active member of [...] Problem Relation Age of Onset Heart Mother NE at age 69 Diabetes Mother Heart Disease Mother Heart Brother NE at age 45 Diabetes Brother Heart Disease Brother Emphysema Father at age 78 OBJECTIVE: Blood pressure 120/78, pulse 88, height 5' 7" (1.702 m), weight 219 lb 14.4 oz (99.7 kg).BP 120/78 | Pulse 88 | Ht 5' 7" (1.702 m) | Wt 219 lb 14.4 oz (99.7 kg) | BMI 34.44 kg/m General: no distress. 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 Mood change Is it related to improved perfusion vs complication of procedure vs thyroid Will do labs 3. Hypertension Acceptable control No follow-ups on file. [facility] 07/15/2019 13:19 1 :23 PM ESTdocumented in this encounter Plan of Treatment Date Type Specialty Care Team Description 01/13/2020 Office [facility] [address] [facility] [address] Name Type Priority Associated Diagnoses Date/Time BASIC METABOLIC PANEL Lab Routine Type 2 diabetes mellitus 07/15/2019 1: 17 PM with complication, with EST long-term current use of insulin (HCC) THYROID STIMULATING Lab Routine Type 2 diabetes mellitus 07/15/2019 1:17 PM HORMONE with complication, with EST long-term current use of insulin (HCC) FREE T4 Lab Routine Type 2 diabetes mellitus 07/15/2019 1:17 PM with complication, with EST long-term current use of insulin (HCC) Name Type Priority Associated Diagnoses Order Schedule BASIC METABOLIC PANEL Lab Routine Type 2 diabetes mellitus Expected: 2018 with complication, with (Approximate), long-term current use of Expires: 07/15/2020 insulin (HCC) THYROID STIMULATING Lab Routine Type 2 diabetes mellitus Expected: 2018 HORMONE with complication, with (Approximate), long-term current use of Expires: 01/11/2020 insulin (HCC) FREE T4 Lab Routine Type 2 diabetes mellitus Expected: 07/15/2019 with complication, with (Approximate), long-term current use of Expires: 01/11/2020 insulin (HCC) Health Maintenance Due Date Last Done Comments Diabetic Eye Exam 1955 MEDICARE ANNUAL WELLNESS 1955 VISIT PAP SMEAR 1955 PNEUMOCOCCAL 0-64 YRS (1 of 1961 1 - PPSV23) DEPRESSION SCREENING 1967 HIV SCREENING 1970 HEPATITIS C SCREENING 1995 MAMMOGRAM (SCREENING) 1995 COLONOSCOPY SCREENING 2005 ZOSTER IMMUNIZATION SERIES 2005 (1 of 2) URINE MICROALBUMIN 12/01/2014 12/01/2013, 08/18/2012 INFLUENZA VACCINE (#1) 2019 HEMOGLOBIN A1C 07/15/2019 04/14/2019, 11/25/2018, 12/11/2017, Additional history exists FOOT EXAM 05/13/2020 05/13/2019, 05/13/2019, 04/14/2019, Additional history exists LIPID DISORDER SCREENING 07/15/2020 07/15/2019, 11/25/2018, 10/06/2015, Additional history exists HPV IMMUNIZATION SERIES Aged Out No longer eligible based on patient's age to complete this topic MENINGOCOCCAL VACCINE IMM Aged Out No longer eligible based on patient's age to complete this topic documented as of this encounter Results Not on filedocumented in this encounter Visit Diagnoses Diagnosis Type 2 diabetes mellitus without complication, without long-term current use of insulin (HCC) - Primary Type 2 diabetes mellitus with complication, with long-term current use of insulin (HCC) documented in this encounter Insurance Payer Benefit Plan / Subscriber ID Effective Dates Phone Address Type Group MEDICARE MEDICARE PART A xxxxxxxxxxx 1997-Present Medicare & B CIGNA COMMERCIAL CIGNA [facility] xxxxxxxxxxx 2015-Present [employer] Guarantor Name Account Type Relation to Date of Phone Billing Patient Address Ayanna Leon Personal/Family 1955 [id number] ([address]) [address] [phone] [place] (Work) [id number] documented as of this encounter
--- OUTSIDE RECORDS SUMMARY | 2019-07-31 01:14 | XMS REPORT ---
:1955 Author Organization [facility] Care Team Providers Name Role Phone Unavailable Unavailable Unavailable Problems Condition Condition Condition Status Onset Resolution Last Treating Comments Name Details Category Date Date Treatment Clinician Date Pain frequent Pain Mgmt Resolve 2018-092019-06-30 Jacqueline pain d 0-07 09:00:00 [place] 09:15: [id number] Respiratory dyspnea Respirator Resolve 2018-092019-06-30 Jacqueline present y d 0-07 09:00:00 [place] 09:15: [id number] Endo/George anti-coagul Endo/George Resolve 2018-092019-06-30 Jacqueline ation d 0-07 09:00:00 [place] therapy 09:15: [id number] Integument skin Integument Resolve 2018-092019-06-30 Jacqueline integrity d 0-07 09:00:00 [place] risk 09:15: [id number] Nutrition nutritional Nutrition Resolve 2018-092019-06-30 Jacqueline restriction d 0-07 09:00:00 [place] s 09:15: [id number] 00 Elimination urinary Eliminatio Resolve 2018-092019-06-30 Jacqueline incontinenc n d 0-07 09:00:00 [place] e 09:15: [id number] 00 Neuro anxiety Neuro/Emot Resolve 2018-092019-06-30 Jacqueline present ion d 0-07 09:00:00 [place] 09:15: [id number] 00 Neuro depressive Neuro/Emot Resolve 2018-092019-06-30 Jacqueline feelings ion d 0-07 09:00:00 [place] present 09:15: [id number] Neuro knowledge/s Neuro/Emot Resolve 2018-092019-06-30 Jacqueline kill ion d 0-07 09:00:00 [place] deficit: pt 09:15: [id number] 00 Activity ADL Activity Resolve 2018-092019-06-30 Jacqueline assistance d 0-07 09:00:00 [place] required 09:15: [id number] 00 Activity self-care Activity Resolve 2018-092019-06-30 Jacqueline deficit d 0-07 09:00:00 [place] 09:15: [id number] Safety fall risk Safety Resolve 2018-092019-06-30 Jacqueline factor d 0-07 09:00:00 [place] present 09:15: [id number] 00 Safety risk for Safety Resolve 2018-092019-06-30 Jacqueline hospitaliza d 0-07 09:00:00 [place] tion 09:15: [id number] 00 Safety can be left Safety Resolve 2018-092019-06-30 Jacqueline alone for d 0-07 09:00:00 [place] only short 09:15: [id number] periods 00 Medication oral med Meds Resolve 2018-092019-06-30 Jacqueline assistance d 0-07 09:00:00 [place] required 09:15: [id number] 00 Medication injectable Meds Resolve 2018-092019-06-30 Jacqueline med d 0-07 09:00:00 [place] assistance 09:15: [id number] required 00 Musculoskel transfer Musculoske Resolve 2018-092019-06-30 Jacqueline etal assistance letal d 0-07 09:00:00 [place] required 09:15: [id number] 00 Musculoskel requires Musculoske Resolve 2018-092019-06-30 Jacqueline etal human letal d 0-07 09:00:00 [place] assist to 09:15: [id number] leave home 00 Balance/End balance/correspondence coordinator PT/OT: Resolve 2018-092019-06-30 Steve urance rdination Balance/En d 0-07 09:00:00 aguilar Do durance 13:30: PT [id number] Gait/Locomo gait PT/OT: Resolve 2018-092019-06-30 Steve tion deficit Gait/Locom d 0-07 09:00:00 Hi problems otion 13:30: PT [id number] Allergies, Adverse Reactions, Alerts Allergy Name Allergy Status Severity Reaction(s) Onset Inactive Treating Comments Type Date Date Clinician albuterol Base Active Unknown Reaction 2018-09 Interface Ingredient Unknown 0- latex Base Active Unknown Reaction 2018-09 Unknown Ingredient Unknown 0- pregabalin Base Active Unknown Reaction 2018-09 Interface Ingredient Unknown 0- codeine Base Active Unknown Reaction 2018-09 Interface Ingredient Unknown 0- hydrocodone Base Active Unknown Reaction 2018-09 Interface Ingredient Unknown 0- metformin Base Active Unknown Reaction 2018-09 Interface Ingredient Unknown 0- Sulfa Unknown Active Unknown Reaction 2018-09 Interface (Sulfonamide Unknown 0- Antibiotics) sulfamethoxa Base Active Unknown Reaction 2018-09 Interface zole Ingredient Unknown 0- trimethoprim Base Active Unknown Reaction 2018-09 Interface Ingredient Unknown 0-01 Medications Ordered Filled Start Stop Current Ordering Indication Dosage Frequency Signature Comments Components Medication Medication Date Date Medication? Clinician (SIG) Name Name Eliangelis 5 Eliquis 5 2018-09- Yes Shallish Unknown Unknown mg tablet mg tablet 006-30 MD,Long atorvastati atorvastati 2018-09- Yes Shallish Unknown Unknown n 80 mg n 80 mg 006-30 MD,Long tablet tablet clopidogrel clopidogrel 2018-09- Yes Shallish Unknown Unknown 75 mg 75 mg 006-30 MD,Long tablet tablet isosorbide isosorbide 2018-09- Yes Shallish Unknown Unknown mononitrate mononitrate 006-30 MD,Long ER 30 mg ER 30 mg tablet,exte tablet,exte nded nded release 24 release 24 hr hr metoprolol metoprolol 2018-09- Yes Shallish Unknown Unknown succinate succinate 006-30 MD,Long ER 25 mg ER 25 mg [...] Shallish Unknown Unknown 300 mg 300 mg 006-30 MD,Long capsule capsule canaglifloz canaglifloz 2018-09- Yes Shallish Unknown Unknown in 300 mg in 300 mg 006-30 MD,Long tablet tablet predniSONE predniSONE 2018-09- Yes Shallish Unknown Unknown 5 mg tablet 5 mg tablet 06-30 MD,Long busPIRone busPIRone 2018-09- Yes Shallish Unknown Unknown 30 mg 30 mg 06-30 MD,Long tablet tablet liraglutide liraglutide 2018-09- Yes Shallish Unknown Unknown 0.6 mg/0.1 0.6 mg/0.1 06-30 MD,Long mL (18 mg/3 mL (18 mg/3 mL) mL) subcutaneou subcutaneou s pen s pen injector injector HumaLOG HumaLOG 2018-09- Yes Shallish Unknown Unknown KwikPen KwikPen 06-30 ,Long (U-100) (U-100) Insulin 100 Insulin 100 unit/mL [...]
--- OUTSIDE RECORDS SUMMARY | 2019-07-31 01:15 | XMS REPORT | Continuity of Care Document ---
:1955 External Reference #:[id number] Author Name Zaynab Lindsay M.D. 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 Warfarin Sodium 1 tablet Kaitlynn, Long, 4mg alternate days Tablets 1/2 tablet [...] <=100 finding [address] [place] [place] [address] Peptide BNP [phone] Basic Metabolic [facility] Sodium 136 mmol/L Normal 135-145 Panel [address] [place] [address] [phone] Potassium 4.6 mmol/L Normal 3.5-5.0 Chloride 95 [...] Normal 3.5-10.[address] [place] [address] [phone] Red Blood Count 5.19 10^6/uL High 3.70-4.87 [...] [address] [address] [phone] Laboratory test 01/15/2019 [facility] Point of Care 162 mg/dL High 70-10 [address] Glucose 0 [place] [address] [phone] Inr/Protime 01/15/2019 [facility] Inr 2.61 High 0.82- [address] 1.09 [place] [address] [phone] Laboratory test 01/15/2019 [facility] Point of Care 139 mg/dL High 70-10 [address] Glucose 0 [place] [address] [phone] 1 Because ethnic data is not always [...] [address]: Jemal Condon MD Acct: [id number] Unit: [id number] AGE: 64 Location: [place] Re01/15/19 SEX: F Status: JE LEY SPEC: [id number] CHELSEA: 01/15/19- SUBM DR: Jemal Condon MD REQ: [id number] RECD: 01/15/19 STATUS: SOUT _ ORDERED: Artemio, [...] skin margin is inked and sales representative metals sections CONTINUED ON NEXT PAGE DEPARTMENT OF PATHOLOGY, [address] [place] [address] Ajit Lamb M.D. Director [facility] # [id number] RUN DATE: 01/22/19 [facility] LAB LIVE PAGE 2 Patient: AYANNA MOHAMUD [id number] (Continued) GROSS DESCRIPTION (Continued) are submitted in cassettes A and B to include bone following decalcification in cassette A. 2. The specimen is received in formalin labeled, Right Knee Ganglion Cyst, and consists of a 5.0 x 3.4 x 1.0 cm paniagua-pink shaggy focally disrupted rubbery unilocular cyst containing paniagua-pink mucus. The specimen is serially sectioned and sales representative metals sections are submitted in one cassette. Signed by and Reported on: Briseyda Conley MD 01/16/19 1341 END OF REPORT DEPARTMENT OF PATHOLOGY, [address] [place] [address] Ajit Lamb M.D. Director [facility] # [id number] 3 Filter Pulp Washer: [id number] Standard intensity warfarin therapeutic range: 2.0-3.0 High intensity warfarin therapeutic range: 2.5-3.5 5 Filter Pulp Washer: [id number] Procedures Date Code Description Status 05/14/2019 51232 Moderate Sedation Services; Same Phys Intl 15 Mins; PT >= Completed 5 Years 05/14/2019 62655 Color Flow Doppler/Interp & Reprt Completed 05/14/2019 69667 Pulse Wave/Continuous-Interp.RPT Completed 05/14/2019 76595 Echocardiography, Transesophageal, Real Time W/Image 2D Completed W/W/O M-M 05/12/2019 35509 Treadmill Interp/Report Only Completed 05/12/2019 37190 Stress Test Supervsn W/Out I/R Completed 04/28/2019 80510 ECHO Transthoracic, Real-Time 2D With Doppler And Color Completed Flow 04/28/2019 34576 ECHO Transthoracic, Real-Time 2D With Doppler And Color Completed Flow 04/28/2019 71383 Interrogation Device Eval In Person W/DR Completed Analysis,Single,Dual,Mul 04/28/2019 95344 Interrogation Device Eval In Person W/ Completed Analysis,Single,Dual,Mul 03/09/201999268 Aspiration &/Or Inj Of Ganglion Cyst(S) Any Location Completed 02/27/2019 94021 Aspiration &/Or Inj Of Ganglion Cyst(S) Any Location Completed 01/15/2019 47320 Amputation,Toe;Interphalangeal Joint Completed 01/15/2019 59178 Excision Lesion Meniscus/Capsule Knee Completed 01/15/2019 83815 Excision Lesion Meniscus/Capsule Knee Completed 01/06/2019 27900 EKG Tracing & Interpretation Completed 12/18/2018 24266 Icd Eval Sing,Dual,Multi Lead Remote Recpt Transm Tech Rev Completed Tech S 12/18/2018 65298 Icd Eval Sing,Dual,Multi Lead Remote Recpt Transm Tech Rev Completed Tech S 12/18/2018 81522 Pacemaker Check Remote Up To 90Days Single,Dual,Multiple Completed Lead 12/18/2018 53674 Pacemaker Check Remote Up To 90Days Single,Dual,Multiple Completed Lead Medical Devices Description No Information Available Encounters Type Date Location Provider Dx Diagnosis Office Visit 06/02/2019 [facility] Tawny Mason, Z95.0 Presence of 11:30a Of Auto Brake Technician N.P. cardiac pacemaker R06.02 Shortness of breath I34.0 Nonrheumatic mitral (valve) insufficiency I48.2 Chronic atrial fibrillation Office Visit 05/22/2019 [facility] Roseanna, S93.492A Sprain of other 10:15a Orthopedics at [facility] [place] left ankle, initial encounter Office Visit 05/15/2019 [facility] Tawny Mason, Z95.0 Presence of 10:30a Of Auto Brake Technician N.P. cardiac pacemaker R06.02 Shortness of breath I34.0 Nonrheumatic mitral (valve) insufficiency I48.2 Chronic atrial fibrillation I95.89 Other hypotension Office Visit 05/12/2019 8:15a [facility] Aster Zhu E11.622 Type 2 diabetes Center AT [facility] JOSHUA [place] mellitus with other skin ulcer L97.818 Non-prs chronic ulcer oth prt r low leg with oth severity Office Visit 05/12/2019 9:10a [facility] Fior R07.9 Chest pain, Assoc,pc O'meet, PA-C unspecified Hospitalists I48.91 Unspecified atrial fibrillation Office Visit 05/12/2019 2:42p [facility] Jesus Landis R06.02 Shortness of Of Jerry Toscano M.D. breath Office Visit 05/11/2019 9:09a [facility] L97.919 Non-prs chronic Assoc,pc Ree Rivera, [facility] unsp prt of Hospitalists MURAL ARTIST r low leg w unsp severity I48.91 Unspecified atrial fibrillation R06.02 Shortness of breath R07.9 Chest pain, unspecified Office Visit 05/10/2019 2:25p [facility] Jesus Landis R06.02 Shortness of Of Jerry Toscano M.D. breath I34.0 Nonrheumatic mitral (valve) insufficiency Office Visit 05/09/2019 9:08a [facility] R06.02 Shortness of Assoc,sarah Lui NP breath Hospitalists R07.9 Chest pain, unspecified Office Visit 05/08/2019 10:00a [facility] Tawny S. R06.02 Shortness of Of Auto Brake Technician Foster, N.P. breath Z95.0 Presence of cardiac pacemaker I34.0 Nonrheumatic mitral (valve) insufficiency I48.2 Chronic atrial fibrillation Office Visit 05/05/2019 10:00a [facility] Nurse Visit R06.02 Shortness of Of Auto Brake Technician IC breath Office Visit 05/01/2019 10:30a [facility] L97.811 [place]-prs [place] ulcer oth prt r low leg limited to brkdwn skin M67.461 Ganglion, right knee Z89.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 great toe Office Visit 04/24/2019 1:30p [facility] Gin Alvarado, I48.2 Chronic atrial Of Auto Brake Technician M.DAlyssa fibrillation Z95.0 Presence of cardiac pacemaker R06.02 Shortness of breath Office Visit 04/17/2019 2:15p [facility] Roseanna Z47.81 Encounter for Orthopedics at orthopedic [place] aftercare following surgical amp Z89.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 great toe M67.461 Ganglion, right knee Office Visit 01/06/2019 9:00a [facility] Tawny S. I48.2 Chronic atrial Of Jerry Mason, N.P. fibrillation I49.5 Sick sinus syndrome Z95.0 Presence of cardiac pacemaker Office Visit 12/30/2018 10:15a [facility] [place], Z79.4 half-way at [place] (current) use of insulin E11.40 Type 2 diabetes mellitus with diabetic neuropathy, unsp S91.111D [place] w/o fb of right great toe w/o damage to nail, subs M67.461 Ganglion, right knee Office Visit 12/16/2018 9:00a [facility] [place] S91.111D [place] w/o fb at [place] of right great toe w/o damage to nail, subs S91.112D Laceration w/o fb of left great toe w/o damage to nail, subs Z79.4 half-way (current) use of insulin E11.40 Type 2 diabetes mellitus with diabetic neuropathy, unsp M67.461 Ganglion, right knee Office Visit 12/09/2018 10:00a [facility] [place] Z79.4 half-way at [place] MD (current) use of insulin E11.42 Type 2 diabetes mellitus with diabetic polyneuropathy S91.111S [place] w/o fb of right great toe w/o damage to nail, sequela S92.422D Disp fx of dist phalanx of l great toe, 7thD Assessments Date Code Description Provider 06/02/2019 Z95.0 Presence of cardiac pacemaker Tawny Mason N.P. 06/02/2019 R06.02 Shortness of breath Tawny Mason N.P. 06/02/2019 I34.0 Nonrheumatic mitral (valve) Tawny Mason, N.P. insufficiency 06/02/2019 I48.2 Chronic atrial fibrillation [...] 05/15/2019 I95.89 Other hypotension Tawny Mason, N.P. 05/14/2019 I34.0 Nonrheumatic mitral (valve) Gin Alvarado M.D. insufficiency 05/12/2019 R06.02 Shortness of breath Jesus Toscano M.D. 05/12/2019 E11.622 Type 2 diabetes mellitus with Aster Santosparis [place] NP other skin ulcer 05/12/2019 L97.818 Non-pressure chronic ulcer of Aster [place], MURAL ARTIST other part of right lower leg with other specified severity 05/12/2019 R06.02 Shortness of breath Devin Ram MD, [facility] 05/12/2019 R07.9 Chest pain, unspecified Fior Contreras PA-C 05/12/2019 I48.91 Unspecified atrial fibrillation Fior Contreras PA-C 05/11/2019 L97.919 Non-pressure chronic ulcer of Keiry Huddl[place]amber, MURAL ARTIST unspecified part of right lower leg with unspecified severity 05/11/2019 I48.91 Unspecified atrial fibrillation Keirymariela Keenan Doto, MURAL ARTIST 05/11/2019 R06.02 Shortness of breath Keiry Keenan Doto, MURAL ARTIST 05/11/2019 R07.9 Chest pain, unspecified Keiry Ree Doto, MURAL ARTIST 05/10/2019 R06.02 Shortness of breath Jesus Toscano M.D. 05/10/2019 I34.0 Nonrheumatic mitral (valve) Jesus Toscano M.D. insufficiency 05/10/2019 R06.02 Shortness of breath Lois Recio, PA 05/10/2019 R07.9 Chest pain, unspecified Lois Recio, PA 05/09/2019 R06.02 Shortness of breath Leah Lui, MURAL ARTIST 05/09/2019 R07.9 Chest pain, unspecified Leah Lui, MURAL ARTIST 05/08/2019 R06.02 Shortness of breath Tawny Mason [...] Condon MD toe 04/17/2019 M67.461 Gely, right knee Jemal Condon MD 04/03/2019 Z47.81 Encounter for orthopedic aftercare Jemal Condon MD following surgical amputation 04/03/2019 Z89.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 debra Condon MD toe 04/03/2019 M67.461 Gely, right knee Jemal Condon MD 03/24/2019 Z89.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 SAVAGE Nielsen toe 03/24/2019 Z47.81 Encounter for orthopedic aftercare Lupe [place], RPA-C following surgical amputa 03/24/2019 M67.461 Ganglion, right knee Lupe [place]iss[place], RPA-C 03/09/2019 Z47.81 Encounter for orthopedic aftercare Jemal Condon MD following surgical amp 03/09/2019 Z89.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 debra Condon MD toe 03/09/2019 M6Dana.461 Ganglion, right knee Jemal Condon MD 03/04/2019 Z47.81 Encounter for orthopedic aftercare Jemal Condon MD following surgical amp 03/04/2019 Z89.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 debra Condon MD toe 03/04/2019 M67.461 Ganglion, right knee Jemal Condon MD 02/27/2019 M67.461 Ganglion, right knee Lupe [place], RPA-C 02/27/2019 Z89.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 great Lupe [place]iss[place], RPA-C toe 02/27/2019 Z47.81 Encounter for orthopedic aftercare Lupe [place], RPA-C following surgical amputa 02/18/2019 M67.461 Ganglion, right knee Jemal Condon MD 02/18/2019 Z89.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 debra Condon MD toe 02/18/2019 Z47.81 Encounter for orthopedic aftercare Jemal Condon MD following surgical amputa 02/13/2019 M67.461 Ganglion, right knee Lupe [place], RPA-C 02/13/2019 Z89.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 [...] amp 01/23/2019 M67.461 Gely, right knee Jemal Cnodon MD 01/23/2019 M20.5x1 Other deformities of toe(s) Jemal Condon MD (acquired), right foot 01/20/2019 M67.461 Gely, right knee Jemal Condon MD 01/20/2019 M20.5x1 Other deformities of toe(s) Jemal Condon MD (acquired), right foot 01/15/2019 M20.5x1 Other deformities of toe(s) SAVAGE Izquierdo (acquired), right foot 01/15/2019 M20.5x1 Other deformities of toe(s) Jemal Condon MD (acquired), right foot 01/15/2019 M67.461 Gely, right knee Jemal Condon MD 01/15/2019 M86.671 [...] Condon MD diabetic neuropathy, unspecifi 01/05/2019 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 at [facility] AT [facility]06/02/2019 - Tawny Mason N.P.Z95.0 Presence of cardiac fizwsxblhD21.02 Shortness of breathRecommendations:Ok to decrease torsemide to [...]
--- OUTSIDE RECORDS SUMMARY | 2019-07-31 01:15 | XMS REPORT | Continuity of Care Document ---
:1955 External Reference #:[id number] Author Name Lyndsay Chester, JOSHUA Address [address] [place] [address] Care Team Providers Name Role Phone [facility] - Endocrinology, Care Team Information Insurance Representative Diabetes & Metabolism [facility] Physical Care Team Information Insurance Representative Therapy - Physical Therapy Problems Active Problems Provider Date Type 2 diabetes mellitus JOS Moura Onset: 01/30/2008 Idiopathic peripheral neuropathy Long Calderón M.D. Onset: 04/14/2012 Benign essential hypertension Long Calderón M.D. Onset: 07/28/2012 Long-term current use of anticoagulant Long Calderón M.D. Onset: 2016 Persistent atrial fibrillation Long Calderón M.D. Onset: 09/20/2016 Granulomatosis with polyangiitis Long Calderón M.D. Onset: 04/04/2017 Type II diabetes mellitus uncontrolled Long Calderón M.D. Onset: 2018 Generalized anxiety disorder Long Calderón M.D. Onset: 11/11/2018 Coronary arteriosclerosis Long Calderón M.D. Onset: 06/11/2019 Abnormal weight gain Long Calderón M.D. Onset: 06/11/2019 Ulcer of lower extremity Long Calderón M.D. Onset: 06/11/2019 Longstanding persistent atrial fibrillation Long Calderón M.D. Onset: 11/2018 Other hyperlipidemia Long Calderón M.D. Onset: 06/11/2019 Social History Type Date Description Comments Sex Unknown Tobacco Use Start: Unknown Never Smoked Cigarettes ETOH Use Never used alcohol Tobacco Use Start: Unknown Patient has never smoked Smoking Status Reviewed: 07/07/19 Patient has never smoked Allergies, Adverse Reactions, Alerts Active Allergies Reaction Severity Comments Date Albuterol 01/30/2008 Bactrim 01/30/2008 Codeine 01/30/2008 Hydrocodone/Apap Nausea and Vomiting, HEADACHE,RAPID 11/23/2008 HEART BEAT Lyrica 02/05/2014 Metformin excessive diarrhea 02/05/2014 Ciprofloxacin Hallucinations Severe 05/30/2019 Doxycycline Hallucinations 07/07/2019 Medications Active Medications SIG Qnty Indications Ordering Date Provider Keflex 1 by mouth three 30caps J20.9 Lyndsay Yenny 07/07/2019 500mg Capsules times a day JOSHUA Chester Buspirone HCL 1/2 po qam, 2 po 90tabs Long FAlyssa 11/11/2018 15mg qpm Pili Calderón Tablets Diflucan 1 by mouth times 2tabs Long FAlyssa 11/11/2018 150mg 1 day, january repeat Pili Calderón Tablets in 5-7d Prednisone 1 po qd 135tabs J44.0 Long FAlyssa 2018 5mg Pili Calderón Tablets Flonase Allergy 1 spray to each 1Mdi J44.0 Lennox T. 2018 Relief nostril every day MD Erendira 50mcg/Act Suspension Invokana Take 1 Tablet By 90tabs Long FAlyssa 10/17/2017 300mg Mouth Once Daily Pili Calderón Tablets For Type II Diabetes Ipratropium [place] 1 unit dose four 62.500ml J44.0 Lyndsay Ramon 04/12/2016 times a day as JOSHUA Chestre 0.02% Solution directed last seen 07/07/19 J20.9 Mometasone Furoate apply three times 45gm Long FAlyssa Calderón, 04/10/2016 0.1% a day as needed M.D. Cream Humalog inject 20 units 30ml Long F. Kaitlynn, 10/16/2014 100Unit/ML Solution before each meal M.D. and at bedtime. take an extra 4 units for readings over 300. (max 90 unts daily) Xopenex use every day - 1box J01.91 Lyndsay Ann 07/28/2012 1.25mg/3ML four times a day Chester, WEATHERIZATION DIRECTOR Nebulizer in nebulizer for sob/cough/ wheeze Omeprazole Take 1 Capsule By 180caps Long EvangelistAlyssa Calderón, 04/25/[address] Mouth Twice Daily M.D. Clopidogrel Bisulfate 1 by mouth every Unknown 75mg day Tablets Eliquis take one tablet by Unknown 5mg Tablets mouth twice a day Isosorbide Dinitrate 1/2 tab by mouth Unknown 30mg daily Tablets Atorvastatin Calcium 1 by mouth every Unknown 80mg day Tablets Metoprolol Succinate ER 1/2 tab by mouth Unknown every day 25mg Tablets ER 24HR Pantoprazole Sodium 1 by mouth every Unknown 40mg day Tablets Spironolactone 1 by mouth every Unknown 25mg Tablets day Relion Insulin before meals & 120units Long Calderón, Syringe/U-100/0.3ML/31G every night at M.D. X 5/16" bedtime as 31G X /16" 0.3 ML [place] [facility] [place] dx: e11.65 - last seen 01/09/18 Victoza 1.8 mg under the samples Long Calderón, 18mg/3ML Solution skin daily as M.D. Pen-Inject directed Gabapentin 1 po bid 270caps Long EvangelistAlyssa Calderón, 300mg Capsules M.D. Oxygen Therapy 2 L prn Long Calderón, M.D. History Medications Tumersaid Joleen Stern, 05/28/2019 - Tablets WEATHERIZATION DIRECTOR 05/28/2019 Cipro take one by 14tabs N39.0 Joleen Stern, 05/28/2019 - 500mg Tablets mouth twice WEATHERIZATION DIRECTOR 05/30/2019 daily for 7 days Immunizations CPT Code Status Date Vaccine Lot # [id number] Given 08/28/2018 High-Dose, Influenza Virus Vacccine-fluzone 65 and [id number] older 15020 Given 07/04/2017 High-Dose, Influenza Virus Vacccine-fluzone 65 and [id number] older 39899 Given 07/16/2016 Pneumococcal Immunization [id number] Given 07/16/2016 Influenza Vac, Quadrivalent, Slit Virus, Im [id number] Given 06/01/2010 DO Not Use Split Influenza Virus Vaccine Vital Signs Date Vital Result Comment 07/07/2019 10:14am BP Systolic 102 mmHg BP Diastolic 70 mmHg Heart Rate 88 /min Body Temperature 97.9 F Respiratory Rate 16 /min O2 % BldC Oximetry 99 % Height 67 inches 5'7" Weight 224.00 lb BMI (Body Mass Index) 35.1 kg/m2 06/11/2019 5:15pm BP Systolic 108 mmHg BP Diastolic 60 mmHg Heart Rate 66 /min Body Temperature 97.9 F Respiratory Rate 16 /min Height 67 inches 5'7" Weight 223.00 lb BMI (Body Mass Index) 34.9 kg/m2 Results Test Date Facility Test Result H/L Range Note Basic Metabolic Panel 06/16/2019 [facility] Sodium 138 mmol/L Normal 135-145 Potassium 4.7 mmol/L Normal 3.5-5.0 Chloride 98 mmol/L Low 101-111 Co2 Carbon Dioxide 32 mmol/L Normal 22-32 Anion Gap 8 mmol/L Normal 2-11 Glucose 172 mg/dL High 70-100 Blood Urea Nitrogen 37 mg/dL High 6-24 Creatinine 1.03 mg/dL High 0.51-0.95 BUN/Creatinine Ratio 35.9 High 8-20 Calcium 9.8 mg/dL Normal 8.6-10.3 Egfr Non- 53.9 >60 Egfr 65.3 >60 1 Laboratory test 06/11/2019 [facility] Hemoglobin A1c 7.0 % High 4.1- 5.7 finding (607)- - (Fma) CBC Manual 06/11/2019 [facility] WBC 6.64 4.0-10.0 Diff-Fma (607)- - RBC 3.85 Low 3.93-6.0 Hemoglobin (Fma/[facility]/CTX) 10.6 g/dL Low 12.0-17.0 Hematocrit (Fma/CMC/CTX) 33.6 % Low 35.0-50.0 Mean Corpuscular Vol 87.3 fL 80-95 Mean Corpuscular Hemoglobin 27.5 pg 25.6-32.2 Mean Corpuscular Hemo Concen 31.5 g/dL Low 32.2-36.0 Platelets 282 10^3/ul 163-400 RDW 16.5 High 11.6-13.7 Mean Platelet Volume 8.8 fL 8.0-12.4 Neutrophil % 68 % 34.0-70.0 Band Neutrophil 5 % 1-7 Lymph% 17 % Low 20.0-52.0 Monocytes % 10 % 5.0-12.0 Hypochrom slight Anisocytosis (Fma/[facility]Centrex) slight Comment slt poik Comprehensive Metabolic 06/11/2019 [facility](a) Sodium 136 mEq/L 134-149 Prof Potassium 4.3 mEq/L 3.6-5.5 Chloride 107 mEq/L 94-112 Carbon Dioxide 25 mEq/L 21-32 Glucose 84 mg/dL 70-105 BUN 20 mg/dL 6-26 Creatinine 0.8 mg/dL 0.6-1.4 BUN/Creat Ratio 25.0 CALC 8.0-36.0 Calcium 8.9 mg/dL 8.6-10.2 Total Protein 7.4 g/dL 6.4-8.3 Albumin 4.0 g/dL 3.8-5.5 Globulin 3.4 g/dL 2.0-4.8 A/G Ratio 1.2 CALC 0.6-2.3 Alk. Phosphatase 65 U/L 30-110 Alt (SGPT) 11 U/L 7-35 Ast (Sgot) 20 U/L 5-34 Total Bilirubin 1.2 mg/dL 0.2-1.3 GFR Non- >60 ml/min/1.73m^ >=60 GFR >60 ml/min/1.73m^ >=60 Lipid Profile 06/11/2019 [facility](a) Cholesterol 117 mg/dL Low 120-200 2 Triglycerides 126 mg/dL 30-200 HDL Cholesterol 34 mg/dL 30-85 LDL (Calculated) 58 CALC 0-129 VLDL Cholesterol 25 mg/dL 0-50 HDL Risk Factor 3.4 CALC 0.0-4.4 Laboratory test 06/11/2019 [facility](a) CK 49 U/L 26-140 finding Laboratory test 06/04/2019 [facility] Pathologist (SEE 3 finding Review NOTE) CBC Auto Diff 06/04/2019 [facility] White Blood 9.7 Normal 3.5-10.8 Count 10^3/uL Red Blood Count 4.29 10^6/uL Normal 3.70-4.87 Hemoglobin 11.9 g/dL Low 12.0-16.0 Hematocrit 36 % Normal 35-47 Mean Corpuscular Volume 84 fL Normal 80-97 Mean Corpuscular Hemoglobin 28 pg Normal 27-31 Mean Corpuscular HGB Conc 33 g/dL Normal 31-36 Red Cell Distribution Width 16 % High 10-15 Platelet Count 387 10^3/uL Normal 150-450 Mean Platelet Volume 6.6 fL Low 7.4-10.4 Abs Neutrophils 3.4 10^3/uL Normal 1.5-7.7 Abs Lymphocytes 5.2 10^3/uL High 1.0-4.8 Abs Monocytes 1.2 10^3/uL High 0-0.8 Abs Eosinophils 0.1 10^3/uL Normal 0-0.6 Abs Basophils 0.0 10^3/uL Normal 0-0.2 Abs Nucleated RBC 0.0 10^3/uL Granulocyte % 34.7 % Lymphocyte % 52.5 % Monocyte % 11.8 % Eosinophil % 0.6 % Basophil % 0.4 % Nucleated Red Blood Cells % 0.1 Laboratory test 06/04/2019 [facility] Partial Thrombo 56.8 seconds High 26.0- 38.0 finding Time PTT Inr/Protime 06/04/2019 [facility] Inr 4.63 High 0.82-1.09 4 CKMB 06/04/2019 [facility] CKMB ng/mL 3.6 ng/mL Normal 0.6-6.3 Laboratory test 06/04/2019 [facility] LDL Cholesterol 101 mg/dL 5 finding Direct Creatine Kinase(CK) 44 U/L Normal 10-223 Troponin I 0.01 ng/mL <0.04 6 Comp Metabolic Panel 06/04/2019 [facility] Sodium 140 mmol/L Normal 135-145 Potassium 3.3 mmol/L Low 3.5-5.0 Chloride 105 mmol/L Normal 101-111 Co2 Carbon Dioxide 27 mmol/L Normal 22-32 Anion Gap 8 mmol/L Normal 2-11 Glucose 143 mg/dL High 70-100 Blood Urea Nitrogen 21 mg/dL Normal 6-24 Creatinine 0.91 mg/dL Normal 0.51-0.95 BUN/Creatinine Ratio 23.1 High 8-20 Calcium 9.1 mg/dL Normal 8.6-10.3 Total Protein 7.6 g/dL Normal 6.4-8.9 Albumin 3.5 g/dL Normal 3.2-5.2 Globulin 4.1 g/dL High 2-4 Albumin/Globulin Ratio 0.9 Low 1-3 Total Bilirubin 0.70 mg/dL Normal 0.2-1.0 Alkaline Phosphatase 72 U/L Normal 34-104 Alt 14 U/L Normal 7-52 Ast 20 U/L Normal 13-39 Egfr Non- 62.2 >60 Egfr 75.3 >60 7 Laboratory test finding 06/04/2019 [facility] Lactic Acid 3.7 mmol/L Critical high 0.5-2.0 8 B-Type Natriuretic Peptide BNP 159 pg/mL High <=100 Laboratory test finding 05/30/2019 [facility] Inr ([facility]) 3.0 2.0- 3.0 (607)- - CBC Electronic (a New) 05/30/2019 [facility] WBC 8.98 4.0-10.0 (607)- - RBC 4.95 [...] % Low 0.7-7.0 Basophil% 0.3 % 0-1.2 Ua - Non Micro (a) 05/30/2019 [facility] Appearance orange (607)- - Color clear Glucose, Urine (Fma/[facility]/CTX) 500mg/dl High known diabetic Bilirubin neg Ketones neg SP Grav 1.015 Blood neg PH 5.0 Protein neg Urobil 0.2 Nitrite neg Leukocytes (Fma/[facility]) neg Comprehensive Metabolic 05/30/2019 [facility](a) Sodium 136 mEq/L 134-149 Prof Potassium 4.4 mEq/L 3.6-5.5 Chloride 96 mEq/L 94-112 Carbon Dioxide 31 mEq/L 21-32 Glucose 253 mg/dL High 70-105 9 BUN 28 mg/dL High 6-26 Creatinine 1.4 mg/dL 0.6-1.4 BUN/Creat Ratio 20.0 CALC 8.0-36.0 Calcium 9.6 mg/dL 8.6-10.2 Total Protein 8.5 g/dL High 6.4-8.3 10 Albumin 4.3 g/dL 3.8-5.5 Globulin 4.2 g/dL 2.0-4.8 A/G Ratio 1.0 CALC 0.6-2.3 Alk. Phosphatase 90 U/L 30-110 Alt (SGPT) 11 U/L 7-35 Ast (Sgot) 26 U/L 5-34 Total Bilirubin 1.6 mg/dL High 0.2-1.3 11 GFR Non- 40 ml/min/1.73m^ Low >=60 GFR 49 ml/min/1.73m^ Low >=60 Laboratory test 05/30/2019 [facility]) TSH 0.95 mIU/L 0.50-6.00 finding Laboratory test 05/28/2019 [facility] Inr (a) 3.9 High 2.0-3.0 finding (607)- - Ua - Non Micro 05/28/2019 [facility] Appearance CLEAR ([facility]) (607)- - Color DK.YELLOW Glucose, Urine (Fma/[facility]/CTX) 500 MG/dL High Known DM Bilirubin NEG Ketones NEG SP Grav 1.020 Blood TRACE-LYSED PH 6.5 Protein 3+ Urobil 4.0 Nitrite NEG Leukocytes (Fma/[facility]) TRACE Laboratory test 05/28/2019 [facility] Hemoglobin A1c 8.2 % % High 4.1-5.7 finding (607)- - (a) Laboratory test 05/13/2019 [facility] Inr (Fma) 2.0 2.0-3.0 finding (607)- - Laboratory test 05/09/2019 [facility] Troponin I 0.01 <0.04 12 finding ng/mL CBC Auto Diff 05/09/2019 [facility] White Blood 10.9 High 3.5-10.8 Count 10^3/uL Red Blood Count 5.46 10^6/uL High 3.70-4.87 [...] Red Blood Cells % 0.0 Inr/Protime 05/09/2019 [facility] Inr 3.38 High 0.82-1.09 13 Comp Metabolic Panel 05/09/2019 [facility] Sodium 132 mmol/L Low 135-145 Potassium 3.7 [...] Egfr Non- 36.4 >60 Egfr 44.0 >60 14 Laboratory test finding 05/09/2019 [facility] Troponin I 0.00 ng/mL <0.04 15 Lactic Acid 2.5 mmol/L Critical high 0.5-2.0 16 B-Type Natriuretic Peptide BNP 90 pg/mL <=100 Laboratory test 05/08/2019 [facility] B-Type Natriuretic 71 pg/mL <=100 finding Peptide BNP Basic Metabolic Panel 05/08/2019 [facility] Sodium 136 mmol/L Normal 135-145 Potassium 4.6 mmol/L Normal 3.5-5.0 Chloride 95 mmol/L Low 101-111 Co2 Carbon Dioxide 29 mmol/L Normal 22-32 Anion Gap 12 mmol/L High 2-11 Glucose 328 mg/dL High 70-100 Blood Urea Nitrogen 43 mg/dL High 6-24 Creatinine 1.20 mg/dL High 0.51-0.95 BUN/Creatinine Ratio 35.8 High 8-20 Calcium 9.8 mg/dL Normal 8.6-10.3 Egfr Non- 45.2 >60 Egfr 54.7 >60 17 CBC Auto Diff 05/08/2019 [facility] White Blood Count 8.6 10^3/uL Normal 3.5- [...] % Nucleated Red Blood Cells % 0.1 CBC Auto Diff 02/20/2019 [facility] White Blood Count 10.4 10^3/uL Normal 3.5- [...] % Nucleated Red Blood Cells % 0.1 Comp Metabolic Panel 02/20/2019 [facility] Sodium 138 mmol/L Normal 135-145 Potassium 4.6 [...] Egfr Non- 62.2 >60 Egfr 75.3 >60 18 Laboratory test finding 02/20/2019 [facility] C Reactive Protein 9.30 mg/L High <8.01 Lactic Acid 3.0 mmol/L Critical high 0.5-2.0 19 Wound Culture/Sensi 02/20/2019 [facility] Wound/Misc SEE RESULT 20 Culture-Gram Stain BELOW Laboratory test 02/20/2019 [facility] MRSA/S. aureus Ssti SEE RESULT 21 finding PCR BELOW Laboratory test 01/15/2019 [facility] Point of Care 162 mg/dL High 70-100 22 finding Glucose Inr/Protime 01/15/2019 [facility] Inr 2.61 High 0.82-1. 23 09 Laboratory test 01/15/2019 [facility] Point of Care 139 mg/dL High 70-100 24 finding Glucose 1 Because ethnic data is not always [...] 5 Kidney failure <15 (or dialysis) 2 RESULTS VERIFIED BY REPEAT ANALYSIS 3 Normocytic anemia. Absolute lymphocytosis and monocytosis, favor reactive. Reviewed by Briseyda Conley MD 4 Standard intensity warfarin therapeutic range: 2.0-3.0 High intensity warfarin therapeutic range: 2.5-3.5 5 Desirable: <100 Near Optimal: 100-129 Borderline High: 130-159 High: 160-189 Very High: >189 6 Troponin-I testing on Plasma Separator Tubes (PST) has a known false positive rate of 0.20-0.40%. All positive troponins reflex immediately to secondary confirmatory testing. Using the [employer] DxI 800 Access Immunoassay systems, the 99th percentile upper reference limit was demonstrated to be < 0.03 ng/mL. 7 Because ethnic data is not always [...] 5 Kidney failure <15 (or dialysis) 8 Critical Result LACT:3.7 Called to [id number] at: 01:57:32 by:[id number] Read back by:[id number] [facility] Severe Sepsis and Septic Shock Management Bundle Measure requires all lactic acids initially measuring >2.0 mmol/L be repeated. 9 RESULTS VERIFIED BY REPEAT ANALYSIS 10 RESULTS VERIFIED BY REPEAT ANALYSIS 11 RESULTS VERIFIED BY REPEAT ANALYSIS 12 Troponin-I testing on Plasma Separator Tubes (PST) has a known false positive rate of 0.20-0.40%. All positive troponins reflex immediately to secondary confirmatory testing. Using the [employer] DxI 800 Access Immunoassay systems, the 99th percentile upper reference limit was demonstrated to be < 0.03 ng/mL. 13 Standard intensity warfarin therapeutic range: 2.0-3.0 High intensity warfarin therapeutic range: 2.5-3.5 14 Because ethnic data is not always readily [...] 15-29 5 Kidney failure <15 (or dialysis) 15 Troponin-I testing on Plasma Separator Tubes (PST) has a known false positive rate of 0.20-0.40%. All positive troponins reflex immediately to secondary confirmatory testing. Using the [employer] DxI 800 Access Immunoassay systems, the 99th percentile upper reference limit was demonstrated to be < 0.03 ng/mL. 16 Critical Result LACT:2.5 Called to [id number] at: 18:18:25 by:[id number] Read back by:[id number] [facility] Severe Sepsis and Septic Shock Management Bundle Measure requires all lactic acids initially measuring >2.0 mmol/L be repeated. 17 Because ethnic data is not always [...] 5 Kidney failure <15 (or dialysis) 18 Because ethnic data is not always readily [...] 15-29 5 Kidney failure <15 (or dialysis) 19 Critical Result LACT:3.0 Called to [id number] at: 18:11:12 by:[id number] Read back by:[id number] [facility] Severe Sepsis and Septic Shock Management Bundle Measure requires all lactic acids initially measuring >2.0 mmol/L be repeated. 20 SEE RESULT BELOW Name: AYANNA MOHAMUD : [address]: Leonardo Portillo MD Acct: [id number] Unit: [id number] AGE: 64 Location: ED Re02/20/19 SEX: F Status: REG ER SPEC: [id number] CHELSEA: 02/20/[address]: Briseyda KUMAR REQ: [id number] RECD: 02/20/19 STATUS: RES OTHR DR: Long Portillo MD _ SOURCE: FOOT,RIGHT SPDESC: ORDERED: Culture Stain Procedure Result Reported Site Wound/Misc Gram Stain Final 02/20/19- 1741 ML 1+ Epithelial Cells No Neutrophils Observed 1+ Gram Positive Cocci Wound/Misc Culture PENDING * ML - Main Lab . END OF REPORT DEPARTMENT OF PATHOLOGY, [address] [place] [address] Ajit Lamb M.D. Director [facility] # [id number] 21 SEE RESULT BELOW Name: AYANNA MOHAMUD : [address]: Leonardo Portillo MD Acct: [id number] Unit: [id number] AGE: 64 Location: ED Re02/20/19 SEX: F Status: DEP ER SPEC: [id number] [place]: 02/20/[address] [facility] [address]: Briseyda KUMAR REQ: [id number] RECD: 02/20/19 STATUS: MATTHEW SINGH DR: Long Portillo MD _ SOURCE: FOOT,RIGHT SPDESC: ORDERED: MRSA/SA SSTI, Culture Stain Procedure Result Reported Site MRSA/S. aureus SSTI PCR Final 02/20/19- 1854 ML Organism 1 MRSA NEGATIVE Organism 2 S.AUREUS NEGATIVE Wound/Misc Gram Stain Final 02/20/19- 1742 ML 1+ Epithelial Cells No Neutrophils Observed 1+ Gram Positive Cocci Wound/Misc Culture Final 02/22/19- 1144 ML Organism 1 NORMAL CHAPARRO Quantity 1+ * ML - Main Lab . END OF REPORT DEPARTMENT OF PATHOLOGY, [address] [place] [address] Ajit Lamb M.D. Director [facility] # [id number] 22 Structural Steel Worker Helper: [id number] Standard intensity warfarin therapeutic range: 2.0-3.0 High intensity warfarin therapeutic range: 2.5-3.5 24 Structural Steel Worker Helper: [id number] Procedures Date Code Description Status 05/28/2019 41257 Finger Or Heel Stick Completed 05/13/2019 65275 Finger Or Heel Stick Completed 10/03/2018 [id number] Mammogram Completed 08/14/2016 [id number] Mammogram Completed 10/09/2012 [id number] Mammogram Completed 09/25/2011 [id number] Mammogram Completed 08/17/2009 [id number] Mammogram Completed Medical Devices Description No Information Available Encounters Type Date Location Provider Dx Diagnosis Office Visit 06/11/2019 Main Office Long Calderón, E11.65 Type 2 diabetes 3:40p M.D. 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 06/11/2019 I25.10 Atherosclerotic heart disease of [place] Long Calderón M.D. coronary artery without angina pectoris 06/11/2019 E78.49 Other hyperlipidemia Long Calderón M.D. 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 involvement 06/11/2019 I48.11 Longstanding persistent atrial fibrillation Long Calderón M.D. 06/11/2019 L97.812 Non-pressure chronic ulcer of other part of Long Calderón M.D. right lower leg with fat layer exposed 06/11/2019 R63.5 Abnormal weight gain Long Calderón M.D. 06/11/2019 D72.810 Lymphocytopenia Long Calderón M.D. 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 05/13/2019 I48.1 Persistent atrial fibrillation Long Calderón M.D. Plan of Treatment Future Appointment(s):10/12/2019 10:00 am - Lyndsay Chester NP at Main [id number]/07/2019 - Lyndsay Chester NPE11.65 Type 2 diabetes mellitus with hyperglycemiaComments:Recommend yearly diabetic eye and foot exams, and check on blood pressure periodically. Goal blood sugar is less than 140 in the morning or A1c less than 7.I25.10 Atherosclerotic heart disease of [place] coronary artery without angina pectorisComments:continue present medication, will call if there is any increase in the frequency or severity of azyhsiC52.11 Longstanding persistent atrial fibrillationComments:with pacemaker, MD Jenny appointment scheduledecho [id number] Non-pressure chronic ulcer of other part of right lower leg with fat layer exposedComments:improving, scabbed over, nontender on right shinZ79.01 termite exterminator (current) use of anticoagulantsComments: Eliquis for Atrial Fibrillation Plavix for CAD with stenting no longer on kbyybrboL84.0 Chronic obstructive pulmonary disease with acute lower respiratory infectionComments:neb tx twaswmzsH99.9 Acute bronchitis, unspecifiedNew Medication:Keflex 500 mg - 1 by mouth three times a dayComments: Upper respiratory infections are rough on your system. Not only do they make you really tired but they dehydrate you really quickly! Supportive care: 1) Make sure you are resting. This is the only way the body can take the energy it needs to heal itself. 2) Fluids, fluids, fluids! - Drink a lot of water or other caffeine free, clear liquids - Use a humidifier in your room at night - If tolerated, use a saline nasal spray to help clear out your sinuses 3) Cough and blow it out, the more you can getout of your system the better4) Make sure you are washing your hands well so you are not spreading your illness to the community. We expect you to feel better in 48-72 hours with the use of antibiotic,if you are not improving or begin to get worse, please contact the office to be seen again.AllComments:Medication Management Patient Understands medications he 's taking? Yes No Are there Barriers to Adherence? Yes No Has the patient been asked about herbal supplements and therapies, andOTC meds? Yes No Care Plan1. Patient has been queried about patient's goals/preferences and functional/lifestyle goals at relevant visits. If relevant, describe: na2. Treatment goals as explained to the patient: above3. Are there barriers to meeting treatment goals? Yes No If Yes, please describe: comorbid conditions, polypharmacy, drug allergies, polypharmacy , disease process 4. Self-Management goals as described to the patient: Yes NoAs always, we strongly encourage a healthy diet and making physical activity a part of your every day life. If you have questions about how or where to start, please contact the office. Functional Status Description No Information Available Mental Status Description No Information Available Referrals Refer to Reason for Referral Status Appt Date [facility] [place] [facility] nonhealing wound right leg jw Sent 2nd Floor AT [address] [address] [phone]
--- OUTSIDE RECORDS SUMMARY | 2019-07-31 01:15 | XMS REPORT | Continuity of Care Document ---
:1955 External Reference #:[id number] Author Name Long Calderón M.D. Address [address] [place] [address] Care Team Providers Name Role Phone [facility] - Endocrinology, Care Team Information [employer] [phone] Diabetes & Metabolism [facility] Physical Care Team Information [employer] Supervisor [phone] Therapy - Physical Therapy Problems Active Problems [...] Coronary arteriosclerosis Long Calderón M.D. Onset: 06/11/2019 Longstanding persistent [...] Qnty Indications Ordering Date Provider Buspirone HCL 1/2 po qam, 2 po 90tabs Long F. 11/11/2018 15mg qpm Pili Calderón Tablets Diflucan 1 by mouth times 2tabs Long F. 11/11/2018 150mg Tablets 1 day, january Pili Calderón repeat in 5-7d Prednisone 1 po qd 135tabs J44.0 Long F. 2018 5mg Tablets Pili Calderón Flonase Allergy Relief 1 spray to each 1Mdi J44.0 Lennox T. 2018 nostril every MD Erendira 50mcg/Act Suspension day Invokana Take 1 Tablet By 90tabs Long FAlyssa 10/17/2017 300mg Tablets Mouth Once Daily iPli Calderón For Type II Diabetes Ipratropium [place] 1 unit dose four 62.500ml Long F. 04/12/2016 0.02% times a day as Pili [...] 300. (max 90 unts daily) Xopenex use qd - qid in 1box 461.9 Long F. 07/28/2012 1.25mg/3ML nebulizer for Pili Calderón Nebulizer sob/cough/ wheeze Omeprazole Take 1 Capsule 180caps Long F. 04/25/2011 20mg Capsules By Mouth Twice Pili Calderón DR Daily Clopidogrel Bisulfate 1 by mouth every Unknown day 75mg Tablets Eliquis take one tablet Unknown 5mg Tablets by mouth twice a day Isosorbide Dinitrate 1/2 tab by mouth Unknown 30mg daily Tablets Atorvastatin Calcium 1 by mouth every Unknown 80mg day Tablets Metoprolol Succinate 1/2 tab by mouth Unknown ER every day 25mg Tablets ER 24HR Pantoprazole Sodium 1 by mouth every Unknown 40mg day Tablets DR Spironolactone 1 by mouth every Unknown 25mg day Tablets Relion Insulin before meals & 120units Long F. Syringe/U-100/0.3ML/31 every night at Pili Calderón G X 5/16" bedtime as 31G X 516" 0.3 directed w/ [place] [facility] [place] dx: e11.65 - last seen 01/09/18 Victoza 1.8 mg under the samples Long F. 18mg/3ML Solution skin daily as Pili Calderón Pen-Inject directed Gabapentin 1 po bid 270caps Long F. 300mg Capsules Pili Calderón Oxygen Therapy 2 L prn Long F. Pili Calderón History Medications Tumersaid Joleen Stern, 05/28/2019 - Tablets [employer] 05/28/2019 Cipro take one by 14tabs N39.0 Joleen Stern, 05/28/2019 - 500mg Tablets mouth twice [employer] 05/30/2019 daily for 7 days Immunizations CPT Code Status Date Vaccine Lot # [id number] Given 08/28/2018 High-Dose, Influenza Virus Vacccine-fluzone 65 and [id number] older [id number] Given 07/04/2017 High-Dose, Influenza Virus Vacccine-fluzone 65 and [id number] older 53512 Given 07/16/2016 Pneumococcal Immunization [id number] Given 07/16/2016 Influenza Vac, Quadrivalent, Slit Virus, Im [id number] Given 06/01/2010 DO Not Use Split Influenza Virus Vaccine Vital Signs Date Vital Result Comment 06/11/2019 5:15pm BP Systolic 108 mmHg BP Diastolic 60 mmHg Heart Rate 66 /min Body Temperature 97.9 F Respiratory Rate 16 /min Height 67 inches 5'7" Weight 223.00 lb BMI (Body Mass Index) 34.9 kg/m2 05/30/2019 11:18am BP Systolic 112 mmHg BP Diastolic 72 mmHg Heart Rate 92 /min Body Temperature 98.2 F Weight 215.00 lb Results Test Date Facility Test Result H/L Range Note Laboratory test 06/11/2019 [facility] Hemoglobin A1c 7.0 % High 4.1- 5.7 finding (607)- - (Fma) CBC Manual 06/11/2019 [facility] WBC 6.64 4.0-10.0 Diff-Fma (607)- - RBC [...] % 10 % 5.0-12.0 Hypochrom slight Anisocytosis (Fma/CMC/Centrex) slight Comment slt [facility] Comprehensive Metabolic 06/11/2019 [facility](a) Sodium 136 mEq/L 134-149 Prof Potassium 4.3 [...] GFR >60 ml/min/1.73m^ >=60 Lipid Profile 06/11/2019 Diehl Chaparro(fma) Cholesterol 117 mg/dL Low 120-200 1 Triglycerides 126 mg/dL 30-200 HDL Cholesterol 34 mg/dL 30-85 LDL (Calculated) 58 CALC 0-129 VLDL Cholesterol 25 mg/dL 0-50 HDL Risk Factor 3.4 CALC 0.0-4.4 Laboratory test 06/11/2019 Fazal Mac(fma) CK 49 U/L 26-140 finding Laboratory test 06/04/2019 [facility] (SEE 2 finding Review NOTE) CBC Auto Diff 06/04/2019 [facility] White Blood 9.7 Normal 3.5-10.8 Count 10^3/uL [...] Blood Cells % 0.1 Laboratory test 06/04/2019 [facility] Partial Thrombo 56.8 seconds High 26.0- 38.0 finding Time PTT Inr/Protime 06/04/2019 [facility] Inr 4.63 High 0.82-1.09 3 CKMB 06/04/2019 [facility] CKMB ng/mL 3.6 ng/mL Normal 0.6-6.3 Laboratory test 06/04/2019 [facility] LDL Cholesterol 101 mg/dL 4 finding Direct Creatine Kinase(CK) 44 U/L Normal 10-223 Troponin I 0.01 ng/mL <0.04 5 Comp Metabolic Panel 06/04/2019 [facility] Sodium 140 mmol/L Normal 135-145 Potassium 3.3 [...] Egfr Non- 62.2 >60 Egfr 75.3 >60 6 Laboratory test finding 06/04/2019 [facility] Lactic Acid 3.7 mmol/L Critical high 0.5-2.0 7 B-Type Natriuretic Peptide BNP 159 pg/mL High <=100 Laboratory test finding 05/30/2019 [facility] Medicine Inr (a) 3.0 2.0- 3.0 (607)- - CBC Electronic (Fma New) 05/30/2019 [facility] Medicine WBC 8.98 4.0-10.0 (607)- - RBC 4.95 [...] 0.3 % 0-1.2 Ua - Non Micro (Fma) 05/30/2019 [facility] Appearance orange (607)- - Color clear Glucose, Urine (Fma/CMC/CTX) 500mg/dl High known diabetic Bilirubin neg Ketones neg SP Grav 1.015 Blood neg PH 5.0 Protein neg Urobil 0.2 Nitrite neg Leukocytes (Fma/CMC/Centrex) neg Comprehensive Metabolic 05/30/2019 Diehl Chaparro([facility]) Sodium 136 mEq/L 134-149 Prof Potassium 4.4 mEq/L 3.6-5.5 Chloride 96 mEq/L 94-112 Carbon Dioxide 31 mEq/L 21-32 Glucose 253 mg/dL High 70-105 8 BUN 28 mg/dL High 6-26 Creatinine 1.4 mg/dL 0.6-1.4 BUN/Creat Ratio 20.0 CALC 8.0-36.0 Calcium 9.6 mg/dL 8.6-10.2 Total Protein 8.5 g/dL High 6.4-8.3 9 Albumin 4.3 g/dL 3.8-5.5 Globulin 4.2 g/dL 2.0-4.8 A/G Ratio 1.0 CALC 0.6-2.3 Alk. Phosphatase 90 U/L 30-110 Alt (SGPT) 11 U/L 7-35 Ast (Sgot) 26 U/L 5-34 Total Bilirubin 1.6 mg/dL High 0.2-1.3 10 GFR Non- 40 ml/min/1.73m^ Low >=60 GFR 49 ml/min/1.73m^ Low >=60 Laboratory test 05/30/2019 [facility](a) TSH 0.95 mIU/L 0.50-6.00 finding Laboratory test 05/28/2019 [facility] Inr (Fma) 3.9 High 2.0-3.0 finding (607)- - Ua - Non Micro 05/28/2019 [facility] Appearance CLEAR (a) (607)- - Color DK.YELLOW Glucose, Urine (Fma/CMC/CTX) 500 MG/dL High Known DM Bilirubin NEG Ketones NEG SP Grav 1.020 Blood TRACE-LYSED PH 6.5 Protein 3+ Urobil 4.0 Nitrite NEG Leukocytes (a/CMC/Centrex) TRACE Laboratory test 05/28/2019 [facility] Hemoglobin A1c 8.2 % % High 4.1-5.7 finding (607)- - (Fma) Laboratory test 05/13/2019 [facility] Inr (Fma) 2.0 2.0-3.0 finding (607)- - Laboratory test 05/09/2019 [facility] Troponin I 0.01 <0.04 11 finding ng/mL CBC Auto Diff 05/09/2019 [facility] White Blood 10.9 High 3.5-10.8 Count 10^3/uL [...] Red Blood Cells % 0.0 Inr/Protime 05/09/2019 [facility] Inr 3.38 High 0.82-1.09 12 Comp Metabolic Panel 05/09/2019 [facility] Sodium 132 mmol/L Low 135-145 Potassium 3.7 [...] Egfr Non- 36.4 >60 Egfr 44.0 >60 13 Laboratory test finding 05/09/2019 [facility] Troponin I 0.00 ng/mL <0.04 14 Lactic Acid 2.5 mmol/L Critical high 0.5-2.0 15 B-Type Natriuretic Peptide BNP 90 pg/mL <=100 Laboratory test 05/08/2019 [facility] B-Type Natriuretic 71 pg/mL <=100 finding Peptide BNP Basic Metabolic Panel 05/08/2019 [facility] Sodium 136 mmol/L Normal 135-145 Potassium 4.6 mmol/L Normal 3.5-5.0 Chloride 95 mmol/L Low 101-111 Co2 Carbon Dioxide 29 mmol/L Normal 22-32 Anion Gap 12 mmol/L High 2-11 Glucose 328 mg/dL High 70-100 Blood Urea Nitrogen 43 mg/dL High 6-24 Creatinine 1.20 mg/dL High 0.51-0.95 BUN/Creatinine Ratio 35.8 High 8-20 Calcium 9.8 mg/dL Normal 8.6-10.3 Egfr Non- 45.2 >60 Egfr 54.7 >60 16 CBC Auto Diff 05/08/2019 [facility] White Blood Count 8.6 10^3/uL Normal 3.5- [...] Cells % 0.1 CBC Auto Diff 02/20/2019 [facility] White Blood Count 10.4 10^3/uL Normal 3.5- [...] Cells % 0.1 Comp Metabolic Panel 02/20/2019 [facility] Sodium 138 mmol/L Normal 135-145 Potassium 4.6 [...] Egfr Non- 62.2 >60 Egfr 75.3 >60 17 Laboratory test finding 02/20/2019 [facility] C Reactive Protein 9.30 mg/L High <8.01 Lactic Acid 3.0 mmol/L Critical high 0.5-2.0 18 Wound Culture/Sensi 02/20/2019 [facility] Wound/Misc SEE RESULT 19 Culture-Gram BELOW Stain Laboratory test 02/20/2019 [facility] MRSA/S. aureus SEE RESULT 20 finding Ssti PCR BELOW Laboratory test 01/15/2019 [facility] Point of Care 162 mg/dL High 70-10 21 finding Glucose 0 Inr/Protime 01/15/2019 [facility] Inr 2.61 High 0.82- 22 1.09 Laboratory test 01/15/2019 [facility] Point of Care 139 mg/dL High 70-10 23 finding Glucose 0 Laboratory test 12/19/2018 [facility] Inr (Fma) 2.4 2.0-3 finding (607)- - .0 1 RESULTS VERIFIED BY REPEAT ANALYSIS 2 Normocytic anemia. Absolute lymphocytosis and monocytosis, favor reactive. Reviewed by Briseyda Conley MD 3 Standard intensity warfarin therapeutic range: 2.0-3.0 High intensity warfarin therapeutic range: 2.5-3.5 4 Desirable: <100 Near Optimal: 100-129 Borderline High: 130-159 High: 160-189 Very High: >189 5 Troponin-I testing on Plasma Separator Tubes (PST) has a known false positive rate of 0.20-0.40%. All positive troponins reflex immediately to secondary confirmatory testing. Using the [employer] 800 Access Immunoassay systems, the 99th percentile upper reference limit was demonstrated to be < 0.03 ng/mL. 6 Because ethnic data is not always [...] 5 Kidney failure <15 (or dialysis) 7 Critical Result LACT:3.7 Called to TONIA at: 01:57:32 by:[id number] Read back by:TONIA NMTrue Severe Sepsis and Septic Shock Management Bundle Measure requires all lactic acids initially measuring >2.0 mmol/L be repeated. 8 RESULTS VERIFIED BY REPEAT ANALYSIS 9 RESULTS VERIFIED BY REPEAT ANALYSIS 10 RESULTS VERIFIED BY REPEAT ANALYSIS 11 Troponin-I testing on Plasma Separator Tubes (PST) has a known false positive rate of 0.20-0.40%. All positive troponins reflex immediately to secondary confirmatory testing. Using the [employer] DxI 800 Access Immunoassay systems, the 99th percentile upper reference limit was demonstrated to be < 0.03 ng/mL. 12 Standard intensity warfarin therapeutic range: 2.0-3.0 High intensity warfarin therapeutic range: 2.5-3.5 13 Because ethnic data is not always [...] 5 Kidney failure <15 (or dialysis) 14 Troponin-I testing on Plasma Separator Tubes (PST) has a known false positive rate of 0.20-0.40%. All positive troponins reflex immediately to secondary confirmatory testing. Using the [employer] DxI 800 Access Immunoassay systems, the 99th percentile upper reference limit was demonstrated to be < 0.03 ng/mL. 15 Critical Result LACT:2.5 Called to [id number] at: 18:18:25 by:[id number] Read back by:[id number] [facility] Severe Sepsis and Septic Shock Management Bundle Measure requires all lactic acids initially measuring >2.0 mmol/L be repeated. 16 Because ethnic data is not always [...] 5 Kidney failure <15 (or dialysis) 17 Because ethnic data is not always [...] 5 Kidney failure <15 (or dialysis) 18 Critical Result LACT:3.0 Called to [id number] at: 18:11:12 by:[id number] Read back by:[id number] KERRI Severe Sepsis and Septic Shock Management Bundle Measure requires all lactic acids initially measuring >2.0 mmol/L be repeated. 19 SEE RESULT BELOW Name: CADEAYANNA : [address]: Leonardo Portillo MD Acct: [id number] Unit: [id number] AGE: 64 Location: ED Re02/20/19 SEX: F Status: REG ER SPEC: [id number] CHELSEA: 02/20/[address]: Briseyda KUMAR REQ: [id number] RECD: 02/20/19 STATUS: RES [facility] DR: Long Portillo MD _ SOURCE: FOOT,RIGHT SPDESC: ORDERED: Culture Stain Procedure Result Reported Site Wound/Misc Gram Stain Final 02/20/191741 ML 1+ Epithelial Cells No Neutrophils Observed 1+ Gram Positive Cocci Wound/Misc Culture PENDING * ML - Main Lab . END OF REPORT DEPARTMENT OF PATHOLOGY, [address] [place] [address] Ajit Lamb M.D. Director [facility] # [id number] 20 SEE RESULT BELOW Name: AYANNA MOHAMUD : [address]: Leonardo Portillo MD Acct: [id number] Unit: [id number] AGE: 64 Location: ED Re02/20/19 SEX: F Status: DEP ER SPEC: [id number] CHELSEA: 02/20/[address]: Briseyda KUMAR REQ: [id number] RECD: 02/20/19 STATUS: MATTHEW SINGH DR: Long [...] . END OF REPORT DEPARTMENT OF PATHOLOGY, [address] [place] [address] Ajit Lamb M.D. Director [facility] # [id number] 21 [employer]: [id number] 22 Standard intensity warfarin therapeutic range: 2.0-3.0 High intensity warfarin therapeutic range: 2.5-3.5 23 [employer]: [id number] Procedures Date Code Description Status 05/28/2019 40697 Finger Or Heel Stick Completed 05/13/2019 51652 Finger Or Heel Stick Completed 12/19/2018 13030 Finger Or Heel Stick Completed 10/03/2018 35645690 Mammogram Completed 08/14/2016 [id number] Mammogram Completed 10/09/2012 75079127 Mammogram Completed 09/25/2011 31202450 Mammogram Completed 08/17/2009 05156414 Mammogram Completed Medical Devices Description No Information Available Encounters Type Date Location Provider Dx Diagnosis Office Visit 05/30/2019 Main Office Lyndsay Ramon 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 involvement 06/11/2019 I48.11 Longstanding persistent atrial fibrillation Long Calderón M.D. 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 05/13/2019 I48.1 Persistent atrial fibrillation Long Calderón M.D. 12/19/2018 Z79.01 rodent exterminator (current) use of anticoagulants Long Calderón M.D. 12/19/2018 I48.1 Persistent atrial fibrillation Long Calderón M.D. 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 Plan of Treatment Future Appointment(s):07/07/2019 10:15 am - Lyndsay Chester NP at Main [id number]/11/2019 - Long Calderón M.D.E11.65 Type 2 diabetes mellitus with hyperglycemiaComments:The patient was reminded to have regular Opthalmology exams , and check on blood pressure periodically.I25.10 Atherosclerotic heart disease of viejas coronary artery without angina pectorisComments:continue present medication,will call if there is any increase in the frequency or severity of xdlljwF56.49 Other qqnvgwbxhshpcdY56.30 Erickson's granulomatosis without renal jjtabdioaejV35.11 Longstanding persistent atrial fibrillationAllComments:Patient is stable now after her anterior wall myocardial infarction treated with a stent placed in the mid LAD by Dr. Dumont. She is concerned about weight gain and she has been taken off her torsemideand is concerned about fluid retention within the abdomen. She is waiting to hear from Cardiology about whether she can restart Torsemide. She has no shortness of breath at rest but feels somewhat short of breath with exercise. She's had no recurrence of chest discomfort. She has some right otalgia and ear irrigation was done. Pulse oximetry was 97% on room air. She is waiting to hear from cardiologyregarding resumption of torsemide. She will continue to monitor her weights. She's had a flu shot. She will return in one month and she will see Dr. Alvarado in 2 weeks Functional Status Description No Information Available Mental Status Description No Information Available Referrals Refer to Reason for Referral Status Appt Date [facility] [place] nonhealing wound right leg jw Sent 2nd Floor AT [address] [address] [phone]
--- OUTSIDE RECORDS SUMMARY | 2019-07-31 01:15 | XMS REPORT | Continuity of Care Document ---
:1955 External Reference #:[id number] Author Name Lyndsay Chester NP Address [address] [place] [address] Care Team Providers Name Role Phone [facility] - Endocrinology, Care Team Information Education Teacher [phone] Diabetes & Metabolism [facility] Physical Care Team Information Education Teacher [phone] Therapy - Physical Therapy Problems Active Problems [...] Patient has never smoked Smoking Status Reviewed: 07/14/19 Patient has never smoked Allergies, Adverse Reactions, Alerts Active Allergies Reaction Severity Comments Date Albuterol 01/30/2008 Bactrim 01/30/2008 Codeine 01/30/2008 Hydrocodone/Apap Nausea and Vomiting, HEADACHE,RAPID 11/23/2008 HEART BEAT Lyrica 02/05/2014 Metformin excessive diarrhea 02/05/2014 Ciprofloxacin Hallucinations Severe 05/30/2019 Doxycycline Hallucinations 07/07/2019 Medications Active Medications SIG Qnty Indications Ordering Date Provider Amoxicillin/Clavulan 1 by mouth twice 20tabs J01.90 Lyndsay Ramon 07/14/2019 ate Potassium a day x 10 days JOSHUA Chester 875-125mg Tablets Zoloft 1 by mouth every 30tabs F43.23 Lyndsay Ramon 07/14/2019 25mg Tablets day JOSHUA Chester Buspirone HCL 1/2 po qam, 2 po 90tabs Long FAlyssa 11/11/2018 15mg qpm Pili Calderón Tablets Diflucan 1 by mouth times 2tabs Long FAlyssa 11/11/2018 150mg 1 day, may repeat Pili Calderón Tablets in 5-7d Prednisone 1 by mouth every 90tabs J44.0 Lyndsay Ramon 2018 5mg day Chester, NP Tablets Flonase Allergy 1 spray to each 1Mdi J44.0 Lennox TAlyssa 2018 Relief nostril every day MD Erendira 50mcg/Act Suspension Invokana Take 1 Tablet By 90tabs Long FAlyssa 10/17/2017 300mg Mouth Once Daily Pili Calderón Tablets For Type II Diabetes Ipratropium [place] 1 unit dose four 62.500ml J44.0 Lyndsay Ramon 04/12/2016 times a day as JOSHUA Chester 0.02% Solution directed last seen 07/07/19 J20.9 Mometasone Furoate apply three times 45gm Long FAlyssa Calderón, 04/10/2016 0.1% a day as needed M.D. Cream Humalog inject 20 units 30ml Long FAlyssa Calderón, 10/16/2014 100Unit/ML Solution before each meal M.D. and at bedtime. take an extra 4 units for readings over 300. (max 90 unts daily) Xopenex use every day - 1box J01.91 Lyndsay Yenny 07/28/2012 1.25mg/3ML four times a day JOSHUA Chester Nebulizer in nebulizer for sob/cough/ wheeze Omeprazole Take 1 Capsule By 180caps Long EvangelistAlyssa Caldreón, 04/25/[address] Mouth Twice Daily [...] Relion Insulin before meals & 120units Long EvangelistAlyssa Calderón, Syringe/U-100/0.3ML/31G every night at M.D. X 5/16" bedtime as 31G X 5/16" 0.3 ML directed w/ [facility] humalog - dx: e11.65 - last seen 01/09/18 Victoza 1.8 mg under the samples Long FAlyssa Calderón, 18mg/3ML Solution skin daily as M.D. Pen-Inject directed Gabapentin 1 po bid 270caps Long EvangelistAlyssa Calderón, 300mg Capsules M.D. Oxygen Therapy 2 L prn Long EvangelistAlyssa Calderón, M.D. History Medications Keflex 1 by mouth 30caps J01.90 Lyndsay Yenny 07/07/2019 - 500mg three times a JOSHUA Chester 07/14/2019 Capsules day Tumersaid Joleen Stern, 05/28/2019 - Tablets [employer]OM[employer] 05/28/2019 Cipro take one by 14tabs N39.0 Joleen Stern, 05/28/2019 - 500mg Tablets mouth twice [employer] 05/30/2019 daily for 7 days Immunizations CPT Code Status Date Vaccine Lot # [id number] Given 08/28/2018 High-Dose, Influenza Virus Vacccine-fluzone 65 and [id number] older 16667 Given 07/04/2017 High-Dose, Influenza Virus Vacccine-fluzone 65 and [id number] older [id number] Given 07/16/2016 Pneumococcal Immunization [id number] Given 07/16/2016 Influenza Vac, Quadrivalent, Slit Virus, Im [id number] Given 06/01/2010 DO Not Use Split Influenza Virus Vaccine Vital Signs Date Vital Result Comment 07/14/2019 12:53pm BP Systolic 106 mmHg BP Diastolic 70 mmHg Heart Rate 72 /min Body Temperature 98.1 F Respiratory Rate 16 /min Height 67 inches 5'7" 07/07/2019 10:14am BP Systolic 102 mmHg BP Diastolic 70 mmHg Heart Rate 88 /min Body Temperature 97.9 F Respiratory Rate 16 /min O2 % BldC Oximetry 99 % Height 67 inches 5'7" Weight 224.00 lb BMI (Body Mass Index) 35.1 kg/m2 Results Test Date Facility Test Result [...] Egfr 65.3 >60 1 Laboratory test 06/11/2019 [facility] Hemoglobin A1c 7.0 % High 4.1- 5.7 finding (607)- - (Fma) CBC Manual 06/11/2019 [facility] Medicine WBC 6.64 4.0-10.0 Diff-Fma (607)- - RBC [...] Hypochrom slight Anisocytosis (Fma/[facility]) slight Comment slt poik Comprehensive Metabolic 06/11/2019 [facility](a) Sodium 136 mEq/L 134-149 Prof Potassium [...] >60 ml/min/1.73m^ >=60 Lipid Profile 06/11/2019 [facility](fma) Cholesterol 117 mg/dL Low 120-200 2 Triglycerides 126 mg/dL 30-200 HDL Cholesterol 34 mg/dL 30-85 LDL (Calculated) 58 CALC 0-129 VLDL Cholesterol 25 mg/dL 0-50 HDL Risk Factor 3.4 CALC 0.0-4.4 Laboratory test 06/11/2019 [facility](fma) CK 49 U/L 26-140 finding Laboratory test 06/04/2019 [facility] [place] (SEE 3 finding Review NOTE) CBC Auto Diff 06/04/2019 [facility] White Blood 9.7 Normal 3.5-10.8 Count 10^3/uL [...] 0.1 Laboratory test 06/04/2019 [facility] Partial Thrombo 56.8 seconds High 26.0- 38.0 finding Time PTT Inr/Protime 06/04/2019 [facility] Inr 4.63 High 0.82-1.09 4 CKMB 06/04/2019 [facility] CKMB ng/mL 3.6 ng/mL Normal 0.6-6.3 Laboratory test 06/04/2019 [facility] LDL Cholesterol 101 mg/dL 5 finding Direct Creatine Kinase(CK) 44 U/L Normal 10-223 Troponin I 0.01 ng/mL <0.04 6 Comp Metabolic Panel 06/04/2019 [facility] Sodium 140 mmol/L Normal 135-145 Potassium 3.3 [...] 75.3 >60 7 Laboratory test finding 06/04/2019 [facility] Lactic Acid 3.7 mmol/L Critical high 0.5-2.0 8 B-Type Natriuretic Peptide BNP 159 pg/mL High <=100 Laboratory test finding 05/30/2019 [facility] Inr ([facility]) 3.0 2.0- 3.0 (607)- - CBC Electronic (a New) 05/30/2019 [facility] WBC 8.98 4.0-10.0 (607)- - RBC 4.95 [...] 0-1.2 Ua - Non Micro (Fma) 05/30/2019 [facility] Medicine Appearance orange (607)- - Color clear Glucose, Urine (Fma/CMC/CTX) 500mg/dl High known diabetic Bilirubin neg Ketones neg SP Grav 1.015 Blood neg PH 5.0 Protein neg Urobil 0.2 Nitrite neg Leukocytes (Fma/[facility]) neg Comprehensive Metabolic 05/30/2019 [facility](a) Sodium [...] ml/min/1.73m^ Low >=60 Laboratory test 05/30/2019 [facility]) TSH 0.95 mIU/L 0.50-6.00 finding Laboratory test 05/28/2019 [facility] (a) 3.9 High 2.0-3.0 finding (607)- - Ua - Non Micro 05/28/2019 [facility] Medicine Appearance CLEAR (a) (607)- - Color DK.YELLOW Glucose, Urine (Fma/CMC/CTX) 500 MG/dL High Known DM Bilirubin NEG Ketones NEG SP Grav 1.020 Blood TRACE-LYSED PH 6.5 Protein 3+ Urobil 4.0 Nitrite NEG Leukocytes (Fma/[facility]) TRACE Laboratory test 05/28/2019 [facility] Hemoglobin A1c 8.2 % % High 4.1-5.7 finding (607)- - (a) Laboratory test 05/13/2019 [facility] (a) 2.0 2.0-3.0 finding (607)- - Laboratory test 05/09/2019 [facility] Troponin I 0.01 <0.04 12 finding ng/mL CBC Auto Diff 05/09/2019 [facility] White Blood 10.9 High 3.5-10.8 Count 10^3/uL [...] % 0.0 Inr/Protime 05/09/2019 [facility] Inr 3.38 High 0.82-1.09 13 Comp Metabolic Panel 05/09/2019 [facility] Sodium 132 mmol/L Low 135-145 Potassium 3.7 [...] 44.0 >60 14 Laboratory test finding 05/09/2019 [facility] Troponin I 0.00 ng/mL <0.04 15 Lactic Acid 2.5 mmol/L Critical high 0.5-2.0 16 B-Type Natriuretic Peptide BNP 90 pg/mL <=100 Laboratory test 05/08/2019 [facility] B-Type Natriuretic 71 pg/mL <=100 finding Peptide BNP Basic Metabolic Panel 05/08/2019 [facility] Sodium 136 mmol/L Normal 135-145 Potassium 4.6 [...] 54.7 >60 17 CBC Auto Diff 05/08/2019 [facility] White Blood Count 8.6 10^3/uL Normal 3.5- [...] CBC Auto Diff 02/20/2019 [facility] White Blood Count 10.4 10^3/uL Normal 3.5- [...] Comp Metabolic Panel 02/20/2019 [facility] Sodium 138 mmol/L Normal 135-145 Potassium 4.6 [...] 75.3 >60 18 Laboratory test finding 02/20/2019 [facility] C Reactive Protein 9.30 mg/L High <8.01 Lactic Acid 3.0 mmol/L Critical high 0.5-2.0 19 Wound Culture/Sensi 02/20/2019 [facility] Wound/Misc SEE RESULT 20 Culture-Gram Stain BELOW Laboratory test 02/20/2019 [facility] MRSA/S. aureus Ssti SEE RESULT 21 finding PCR BELOW Laboratory test 01/15/2019 [facility] Point of Care 162 mg/dL High 70-100 22 finding Glucose Inr/Protime 01/15/2019 [facility] Inr 2.61 High 0.82-1. 23 09 Laboratory test 01/15/2019 [facility] Point of Care 139 mg/dL High 70-100 [...] immediately to secondary confirmatory testing. Using the Humansized DxI 800 Access Immunoassay systems, the 99th [...] dialysis) 8 Critical Result LACT:3.7 Called to [id number] at: 01:57:32 by:[id number] Read back by:[id number] [facility] Severe Sepsis and Septic Shock Management [...] immediately to secondary confirmatory testing. Using the Humansized DxI 800 Access Immunoassay systems, the 99th percentile upper reference limit was demonstrated to be < 0.03 ng/mL. 16 Critical Result LACT:2.5 Called to [id number] at: 18:18:25 by:[id number] Read back by:[id number] [facility] Severe Sepsis and Septic Shock Management [...] dialysis) 19 Critical Result LACT:3.0 Called to [id number] at: 18:11:12 by:[id number] Read back by:[id number] [facility] Severe Sepsis and Septic Shock Management Bundle Measure requires all lactic acids initially measuring >2.0 mmol/L be repeated. 20 SEE RESULT BELOW Name: AYANNA MOHAMUD : [address]: Leonardo Portillo MD Acct: [id number] Unit: [id number] AGE: 64 Location: ED Re02/20/19 SEX: F Status: REG ER SPEC: [id number] CHELSEA: 02/20/[address]: Briseyda KUMAR REQ: [id number] RECD: 02/20/19 STATUS: RES OTHR DR: Long Portillo MD _ SOURCE: FOOT,RIGHT SPDESC: ORDERED: Culture Stain Procedure Result Reported Site Wound/Misc Gram Stain Final 02/20/191741 ML 1+ Epithelial Cells No Neutrophils Observed 1+ Gram Positive Cocci Wound/Misc Culture PENDING * ML - Main Lab . END OF REPORT DEPARTMENT OF PATHOLOGY, [address] [place] [address] Ajit Lamb M.D. Director [facility] # [id number] 21 SEE RESULT BELOW Name: AYANNA MOHAMUD : [address]: Leonardo Portillo MD Acct: [id number] Unit: [id number] AGE: 64 Location: ED Re02/20/19 SEX: F Status: DEP ER SPEC: [id number] CHELSEA: 02/20/[address]: Briseyda KUMAR REQ: [id number] RECD: 02/20/19 STATUS: MATTHEW SINGH DR: Long Portillo MD _ SOURCE: FOOT,RIGHT SPDESC: ORDERED: MRSA/SA SSTI, Culture Stain Procedure Result Reported Site MRSA/S. aureus SSTI PCR Final 06/14/19- 1854 ML Organism 1 MRSA NEGATIVE Organism 2 S.AUREUS NEGATIVE Wound/Misc Gram Stain Final 02/20/19- 1742 ML 1+ Epithelial Cells No Neutrophils Observed 1+ Gram Positive Cocci Wound/Misc Culture Final 02/22/19- 1144 ML Organism 1 NORMAL CHAPARRO Quantity 1+ * ML - Main Lab . END OF REPORT DEPARTMENT OF PATHOLOGY, [address] [place] [address] Ajit Lamb M.D. Director [facility] # [id number] 22 Carpet Layer: [id number] Standard intensity warfarin therapeutic range: 2.0-3.0 High intensity warfarin therapeutic range: 2.5-3.5 24 Carpet Layer: [id number] Procedures Date Code Description Status 05/28/2019 42720 Finger Or Heel Stick Completed 05/13/2019 59232 Finger Or Heel Stick Completed 10/03/2018 99455001 Mammogram Completed 08/14/2016 98553442 Mammogram Completed 10/09/2012 18114358 Mammogram Completed 09/25/2011 44395001 Mammogram Completed 08/17/2009 81467128 Mammogram Completed Medical Devices Description No Information Available Encounters Type Date Location Provider Dx Diagnosis Office Visit 07/07/2019 Main Office Lyndsay Ramon E11.65 Type 2 diabetes 10:15a JOSHUA Chester mellitus with hyperglycemia I25.10 Athscl heart disease of [place] coronary artery w/o ang pctrs I48.11 Longstanding persistent atrial fibrillation L97.812 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.01 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 anticoagulants J44.0 Chr obstructive pulmon disease with (acute) lower resp infct J20.9 Acute bronchitis, unspecified Office Visit 06/11/2019 3:40p Main Office Long Jonas E11.65 Type 2 diabetes Pili Calderón mellitus with hyperglycemia I25.10 Athscl heart disease of [place] coronary artery w/o ang pctrs E78.49 Other hyperlipidemia 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 I48.11 Longstanding persistent atrial fibrillation L97.812 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 R63.5 Abnormal weight gain D72.810 Lymphocytopenia Office Visit 05/30/2019 11:15a Main Office Lyndsay Ramon Z79.01 long term care phlebotomist ( current) JOSHUA Chseter use of anticoagulants E11.65 Type 2 diabetes mellitus with hyperglycemia R10.30 Lower abdominal pain, unspecified I48.1 Persistent atrial fibrillation Office Visit 05/28/2019 11:15a Main Office Joleen Stern, N39.0 Urinary tract [employer] PROMOS infection, site not specified E11.65 Type 2 diabetes mellitus with hyperglycemia Z79.01 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 anticoagulants I48.1 Persistent atrial fibrillation Assessments Date Code Description Provider 07/14/2019 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 07/14/2019 F43.23 Adjustment disorder with mixed anxiety and Lyndsay Chester NP depressed mood 07/14/2019 I48.0 Paroxysmal atrial fibrillation Lyndsay Chester NP 07/14/2019 J01.90 Acute sinusitis, unspecified Lyndsay Chester NP 07/14/2019 Z63.79 Other stressful life events affecting Lyndsay Chester NP family and household 07/07/2019 E11.65 Type 2 diabetes mellitus with hyperglycemia Lyndsay Chester NP 07/07/2019 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 06/11/2019 I25.10 Atherosclerotic heart disease of [place] Long Calderón M.D. coronary artery without angina [...] D72.810 Lymphocytopenia Long Calderón M.D. 05/30/2019 Z79.01 longterm (current) use of anticoagulants Lyndsay Chester, JOSHUA 05/30/2019 E11.65 Type 2 diabetes mellitus with hyperglycemia Lyndsay Chester, JOSHUA 05/30/2019 R10.30 Lower abdominal pain, unspecified Lyndsay Chester, [employer] 05/30/2019 I48.1 Persistent atrial fibrillation Lyndsay Chester, JOSHUA 05/28/2019 N39.0 Urinary tract infection, site not specified Joleen Stern, JOSHUA 05/28/2019 E11.65 Type 2 diabetes mellitus with hyperglycemia Joleen Stern, JOSHUA 05/28/2019 Z79.01 longterm (current) use of anticoagulants Joleen Stern, JOSHUA 05/28/2019 I48.1 Persistent atrial fibrillation Joleen Stern, JOSHUA 05/13/2019 Z79.01 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 anticoagulants Long Calderón M.D. 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 05/13/2019 I48.1 Persistent atrial fibrillation Long Calderón M.D. Plan of Treatment Future Appointment(s):08/11/2019 10:00 am - Lyndsay Chester NP at Main Tkizdg4710/12/2019 10:00 am - Lyndsay Chester NP at Main Pttcir6707/14/2019 - Lyndsay Chester, JOSHUAI25.10 Atherosclerotic heart disease of [place] coronary artery without angina pectorisComments:continue present medication,will call if there is any increase in the frequency or severity of angina checking with cardiology regarding the metoprolol and possibility of increasing depressive sx , discussed the importance of metoprolol to reduce workload on the heart s/p [place] , therefore hesitant to stop it if not critical toF43.23 Adjustment disorder with mixed anxiety and depressed moodNew Medication:Zoloft 25 mg - 1 by mouth every dayComments:lets start the zoloft low dose back up again since you have tolerated it in the past I know you wantto stop the PT in home, I think that is an ok plan IF you supplement it with something like Cardiac Rehab - I think this will help you be around people who have had similar experiences with the heart attack around providers who are well versed in the care [place] what I am concerned about is with the depression if you stop both getting into a darker place and not having any social interactions and not making progress physically Taking medicine and going to talk therapy can get you started on the road to feeling better. It can also help you take care of your body and relationships.To help improve your condition:Get enough sleep.Eat healthy foods.Keep a regular daily schedule.Get out of the house every day.Exercise every day. Even a little bit of exercise, such as a 15-minute walk, can help.Stay away from alcohol and street drugs.Talk with family or friends when you feel nervous or frightened.Findout about different types of group activities you can join.Follow up:2-4 weeks, sooner for wjpxagdrF70.0 Paroxysmal atrial fibrillationComments:try to contact pharmacy to see if they have a way of estimating cost of medication, try searching for coupon card online, I will also reach out to my resources to see if I can find a savings cardJ01.90 Acute sinusitis, unspecifiedNew Medication:Amoxicillin/Clavulanate Potassium 875-125 mg - 1 by mouth twice a day x 10 daysComments:worsening sinus pressure, will change Abx as hasn't shown great improvement on dwxyxzZ48.79 Other stressful life events affecting family and householdComments:now is not the time to push Lindsay away - being depressed, we need social stimulation or we tend to stay in bed and have worsening symptoms. We are here for youAllComments:Medication Management Patient Understands medications he 's taking? Yes No Are there Barriers to Adherence? Yes No Has the patient been asked about herbal supplements and therapies, andOTC meds? Yes No Care Plan1. Patient has been queried about patient's goals/ preferences and functional/lifestyle goals at relevant visits. If relevant, describe: na2. Treatment goals as explained to the patient: above3. Are there barriers to meeting treatment goals? Yes No If Yes, please describe: comorbid conditions, disease process, polypharmacy, stressful life event4. Self -Management goals as described to the patient: Yes [...] Referral Status Appt Date [facility] nonhealing wound right leg jw Sent [address] Floor AT [address] [address] [phone]
--- OUTSIDE RECORDS SUMMARY | 2019-07-31 01:15 | XMS REPORT | Continuity of Care Document ---
:1955 External Reference #:[id number] Author Name Tawny Mason N.P. (transmitted by agent of provider Joslyn Mckeon) Address [address] [place] [address] Care Team Providers Name Role Phone Long Calderón MD - Family Medicine Care Team Information [employer] Problems Active Problems Provider Date Granulomatosis with [...] Medications SIG Qnty Indications Ordering Date Provider Clopidogrel Bisulfate 1 by mouth 90tabs Tawny Mason, 06/17/2019 every day N.P. 75mg Tablets Atorvastatin Calcium 1 by mouth 90tabs Tawny Mason, 06/17/2019 every day N.P. 80mg Tablets Eliquis 1 by mouth Unknown 06/17/2019 5mg Tablets twice a day Torsemide 2 by mouth 180tabs Gin Alvarado, 05/05/2019 20mg Tablets every day M.D. Spironolactone 1 tab by mouth 90tabs Gin Alvarado, 04/29/2019 25mg every day M.D. Tablets Medihoney Wound/Burn use daily on 1.5ounces Jemal Condon, 02/27/2019 Dressing wound Gel Prednisone take 5 mg daily 1000tabs M31.30 Lennox Babcock, 02/25/2018 1mg Tablets or as directed M.D. Compression Stockings please use 2units Lennox Babcock, 02/25/2018 daily as needed M.DAlyssa Misc for leg/foot swelling Metoprolol Succinate 1/2 by mouth Unknown ER every day 25mg Tablets ER 24HR Isosorbide Dinitrate 1/2 by mouth Unknown every day 30mg Tablets Humalin Kwik Pen 30 in the Unknown morning 30 at night Flonase Allergy 2 puffs each Unknown Relief nare every in 50mcg/Act the morning Suspension Victoza inject 1.8 mg Unknown 18mg/3ML daily in the Solution Pen-Inject morning Tylenol take 1-2 as Unknown 325mg Tablets needed every 4 hours Invokana 1 by mouth Unknown 300mg Tablets every day Humalog before meals on , 100Unit/ML sliding scale Geno Perrin Solution has needed N.P. Gabapentin 1 cap po bid Pesesky, 300mg Geno Perrin Capsules N.P. Buspirone HCL 2 tabs po hs 60tabs Unknown 15mg Tablets History Medications Keflex 1 tab by [...] Available Vital Signs Date Vital Result Comment 06/18/2019 11:42am Height 67 inches 5'7" Weight 217.38 lb w/ shoes Heart Rate 66 /min R. radial, regular BP Systolic Sitting 100 mmHg LA, lg cuff BP Diastolic Sitting 72 mmHg LA, lg cuff BP Systolic Standing 100 mmHg LA, lg cuff BP Diastolic Standing 80 mmHg LA, lg cuff BMI (Body Mass Index) 34.0 kg/m2 Ejection Fraction 50-55% 06/04/19 06/02/2019 11:21am Height 67 inches 5'7" Weight 219.00 lb BP Systolic Sitting 106 mmHg Rue reg cuff BP Diastolic Sitting 62 mmHg Rue reg cuff Respiratory Rate 14 /min BMI (Body Mass Index) 34.3 kg/m2 Ejection Fraction 55-60% ECHO 04/28/2019 Results Test Date Facility Test Result H/L Range Note Basic Metabolic 06/16/2019 [facility] Sodium 138 mmol/L Normal 135-[address] [place] [address] [phone] Potassium 4.7 mmol/L Normal 3.5-5.0 Chloride 98 mmol/L Low 101-111 Co2 Carbon Dioxide 32 mmol/L Normal 22-32 Anion Gap 8 mmol/L Normal 2-11 Glucose 172 mg/dL High 70-100 Blood Urea Nitrogen 37 mg/dL High 6-24 Creatinine 1.03 mg/dL High 0.51-0.95 BUN/Creatinine Ratio 35.9 High 8-20 Calcium 9.8 mg/dL Normal 8.6-10.3 Egfr Non- 53.9 >60 Egfr 65.3 >60 1 Laboratory test 05/08/2019 [facility] B-Type 71 pg/mL <=[address] [place] [address] Peptide BNP [phone] Basic Metabolic 05/08/2019 [facility] Sodium 136 Normal 135- [address] mmol/[place] [address] [phone] Potassium 4.6 mmol/L Normal 3.5-5.0 Chloride 95 mmol/L Low 101-111 Co2 Carbon Dioxide 29 mmol/L Normal 22-32 Anion Gap 12 mmol/L High 2-11 Glucose 328 mg/dL High 70-100 Blood Urea Nitrogen 43 mg/dL High 6-24 Creatinine 1.20 mg/dL High 0.51-0.95 BUN/Creatinine Ratio 35.8 High 8-20 Calcium 9.8 mg/dL Normal 8.6-10.3 Egfr Non- 45.2 >60 Egfr 54.7 >60 2 CBC Auto 05/08/2019 [facility] White Blood 8.6 10^3/uL Normal 3.5-10.[address] [place] [address] [phone] Red Blood Count 5.19 10^6/uL High 3.70-4.87 [...] Blood Cells % 0.1 Laboratory test 01/15/2019 [facility] Surgical SEE RESULT [address] [place] [address] [phone] Laboratory test 01/15/2019 [facility] Point of Care 162 mg/dL High 70-10 [address] Glucose 0 [place] [address] [phone] Inr/Protime 01/15/2019 [facility] Inr 2.61 High 0.82- [address] 1.09 [place] [address] [phone] Laboratory test 01/15/2019 [facility] Point of Care 139 mg/dL High 70-10 [address] Glucose 0 [place] [address] [phone] 1 Because ethnic data is not always [...] 5 Kidney failure <15 (or dialysis) 2 Because ethnic data is not always readily [...] 15-29 5 Kidney failure <15 (or dialysis) 3 SEE RESULT BELOW Name: AYANNA MOHAMUD : [address]: Jemal Condon MD Acct: [id number] Unit: [id number] AGE: 64 Location: OR Re01/15/19 SEX: F Status: DEP SDC SPEC: [id number] CHELSEA: 01/15/19- SUBM DR: Jemal Condon MD REQ: [id number] RECD: 01/15/19 STATUS: SOUT _ ORDERED: Artemio, [...] paniagua-pink. The skin margin is inked and service center representative sections CONTINUED ON NEXT PAGE DEPARTMENT OF PATHOLOGY, [address] [place] [address] Ajit Lamb M.D. Director [facility] # [id number] RUN DATE: 01/22/19 [facility] LAB LIVE PAGE 2 Patient: AYANNA MOHAMUD [id number] (Continued) GROSS DESCRIPTION (Continued) are submitted in cassettes A and B to include bone following decalcification in cassette A. 2. The specimen is received in formalin labeled, Right Knee Ganglion Cyst, and consists of a 5.0 x 3.4 x 1.0 cm paniagua-pink shaggy focally disrupted rubbery unilocular cyst containing paniagua-pink mucus. The specimen is serially sectioned and service center representative sections are submitted in one cassette. Signed by and Reported on: Briseyda Conley MD 01/16/19 1341 END OF REPORT DEPARTMENT OF PATHOLOGY, [address] [place] [address] Ajit Lamb M.D. Director [facility] # [id number] 4 Interactive Multimedia Designer: [id number] Standard intensity warfarin therapeutic range: 2.0-3.0 High intensity warfarin therapeutic range: 2.5-3.5 6 Interactive Multimedia Designer: [id number] Procedures Date Code Description Status 06/18/2019 68304 EKG Tracing & Interpretation Completed 06/04/2019 25112 Cath PLMT&NJX L Ventriculog Img S&I Completed 06/04/2019 78941 ECHO Transthorasic Realtime 2D W Doppler & Color Flow Hosp Completed 06/04/2019 78504 Percutaneous Transcatheter Placement Of Intracoronary Completed Stent 05/14/2019 30038 Moderate Sedation Services; Same Phys Intl 15 Mins; PT >= Completed 5 Years 05/14/2019 49340 Color Flow Doppler/Interp & Reprt Completed 05/14/2019 08529 Pulse Wave/Continuous-Interp.RPT Completed 05/14/2019 27361 Echocardiography, Transesophageal, Real Time W/Image 2D Completed W/W/O M-M 05/12/2019 62286 Treadmill Interp/Report Only Completed 05/12/2019 41072 Stress Test Supervsn W/Out I/R Completed 04/28/2019 00519 Interrogation Device Eval In Person W/ Completed Analysis,Single,Dual,Mul 04/28/2019 09608 Interrogation Device Eval In Person W/ Completed Analysis,Single,Dual,Mul 04/28/2019 05000 ECHO Transthoracic, Real-Time 2D With Doppler And Color Completed Flow 04/28/2019 49992 ECHO Transthoracic, Real-Time 2D With Doppler And Color Completed Flow 03/09/201947627 Aspiration &/Or Inj Of Ganglion Cyst(S) Any Location Completed 02/27/201904956 Aspiration &/Or Inj Of Ganglion Cyst(S) Any Location Completed 01/15/2019 03469 Amputation,Toe;Interphalangeal Joint Completed 01/15/2019 74319 Excision Lesion Meniscus/Capsule Knee Completed 01/15/2019 47318 Excision Lesion Meniscus/Capsule Knee Completed 01/06/2019 32827 EKG Tracing & Interpretation Completed 12/18/2018 80661 Icd Eval Sing,Dual,Multi Lead Remote Recpt Transm Tech Rev Completed Tech S 12/18/2018 81896 Icd Eval Sing,Dual,Multi Lead Remote Recpt Transm Tech Rev Completed Tech S 12/18/2018 88402 Pacemaker Check Remote Up To 90Days Single,Dual,Multiple Completed Lead 12/18/2018 40842 Pacemaker Check Remote Up To 90Days Single,Dual,Multiple Completed Lead Medical Devices Description No Information Available Encounters Type Date Location Provider Dx Diagnosis Office Visit 06/07/2019 [facility] Sunny Dumont, I25.10 Athscl heart 4:15p Of Prism Inspector AT [facility] M.Sabiha, [facility], disease of mcgrath [facility] coronary artery w/o ang pctrs Z98.61 Coronary angioplasty status R53.1 Weakness Office Visit 06/07/2019 [facility] R06.02 Shortness of 10:21a sarah Tim PA breath Hospitalists E11.40 Type 2 diabetes mellitus with diabetic neuropathy, unsp I48.91 Unspecified atrial fibrillation Office Visit 06/06/2019 4:14p [facility] Sunny Dumont, I25.10 Athscl heart Of Prism Inspector AT [facility] Pili, [facility], disease of [facility] mcgrath coronary artery w/o ang pctrs Z98.61 Coronary angioplasty status R07.9 Chest pain, unspecified R06.02 Shortness of breath Office Visit 06/06/2019 [facility] R06.02 Shortness of 10:21a sarah Tim PA breath Hospitalists E11.40 Type 2 diabetes mellitus with diabetic neuropathy, unsp I48.91 Unspecified atrial fibrillation Office Visit 06/05/2019 4:12p [facility] Sunny Dumont, I25.10 Athscl heart Of Prism Inspector AT [facility] Arsalan.Sabiha, [facility], disease of [facility] mcgrath coronary artery w/o ang pctrs Z98.61 Coronary angioplasty status Office Visit 06/05/2019 [facility] Lois E11.40 Type 2 diabetes 10:20a Assoc,JOSÉ Dailey mellitus with Hospitalists diabetic neuropathy, unsp I48.91 Unspecified atrial fibrillation Office Visit 06/04/2019 [facility] Shreya Darrell, E11.9 Type 2 diabetes 10:20a Assoc,pc [employer] mellitus without Hospitalists complications Office Visit 06/04/2019 [facility] Sunny Dumont, R07.9 Chest pain, 4:34p Of Prism Inspector AT [facility] Arsalan.Sabiha, [facility], unspecified FSCAI R94.31 Abnormal electrocardiogram [ECG] [EKG] 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 cardiac pacemaker R06.02 Shortness of breath I34.0 Nonrheumatic mitral (valve) insufficiency I48.2 Chronic atrial fibrillation [facility], S93.492A Sprain of other 10:15a Orthopedics at [facility] [place] left ankle, initial encounter Office Visit 05/15/2019 [facility] Tawny Mason, Z95.0 Presence of 10:30a Of Prism Inspector N.P. cardiac pacemaker R06.02 Shortness of breath I34.0 Nonrheumatic mitral (valve) insufficiency I48.2 Chronic atrial fibrillation I95.89 Other hypotension Office Visit 05/12/2019 2:42p [facility] Jesus Landis R06.02 Shortness of Of Jerry Toscano M.D. breath Office Visit 05/12/2019 9:10a [facility] Fior R07.9 Chest pain, Assoc,pc VASYL Contreras unspecified Hospitalists I48.91 Unspecified atrial fibrillation Office Visit 05/12/2019 8:15a Wound Care Aster Zhu E11.622 Type 2 diabetes Center AT [facility] Hermosillo, [employer] mellitus with other skin ulcer L97.818 Non-prs chronic ulcer oth prt r low leg with oth severity Office Visit 05/11/2019 9:09a [facility] Keiry L97.919 Non-prs Assoc,sarah Rivera, janeen ulc Hospitalists [employer] unsp prt of r low leg w unsp severity I48.91 Unspecified atrial fibrillation R06.02 Shortness of breath R07.9 Chest pain, unspecified Office Visit 05/10/2019 2:25p [facility] Jesus Landis R06.02 Shortness of Of Jerry Toscano M.D. breath I34.0 Nonrheumatic mitral (valve) insufficiency Office Visit 05/09/2019 9:08a [facility] Leah R06.02 Shortness of Assoc,sarah Lui, [employer] breath Hospitalists R07.9 Chest pain, unspecified Office Visit 05/08/2019 10:00a [facility] Tawny S. R06.02 Shortness of Of Prism Inspector Marlon, N.P. breath Z95.0 Presence of cardiac pacemaker I34.0 Nonrheumatic mitral (valve) insufficiency I48.2 Chronic atrial fibrillation Office Visit 05/05/2019 10:00a [facility] Nurse Visit R06.02 Shortness of Of Prism Inspector IC breath Office Visit 05/01/2019 10:30a [facility] L97.811 [place]s [place] MD ulcer oth prt r low leg limited to brkdwn skin M67.461 Ganglion, right knee Z89.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 great toe Office Visit 04/24/2019 1:30p [facility] Gin Alvarado I48.2 Chronic atrial Of Jerry M.DAlyssa fibrillation Z95.0 Presence of cardiac pacemaker R06.02 Shortness of breath Office Visit 04/17/2019 2:15p [facility] Roseanna Z47.81 Encounter for Orthopedics at orthopedic [place] aftercare following surgical amp Z89.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 great toe M67.461 Ganglion, right knee Office Visit 01/06/2019 9:00a [facility] Tawny S. I48.2 Chronic atrial Of Prism Inspector Marlon, N.P. fibrillation I49.5 Sick sinus syndrome Z95.0 Presence of cardiac pacemaker Office Visit 12/30/2018 10:15a [facility] Roseanna, Z79.4 jail at [place] (current) use of insulin E11.40 Type 2 diabetes mellitus with diabetic neuropathy, unsp S91.111D Lac w/o fb of right great toe w/o damage to nail, subs M67.461 Ganglion, right knee Assessments Date Code Description Provider 06/18/[address] elevation (Stemi) myocardial Tawny Mason, N.P. 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 06/18/2019 Z98.61 Coronary angioplasty status Tawny Mason N.P. 06/18/2019 E11.40 Type 2 diabetes mellitus with Tawny Mason, N.P. diabetic neuropathy, unspecified 06/08/[address] elevation (Stemi) myocardial JOSÉ Rodriguez infarction of unspecified site 06/08/2019 Z79.4 jail (current) use of insulin JOSÉ Rodriguez 06/08/2019 E11.9 Type 2 diabetes mellitus without JOSÉ Rodriguez complications 06/08/2019 I48.91 Unspecified atrial fibrillation JOSÉ Rodriguez 06/07/2019 I25.10 Atherosclerotic heart disease of Sunny Dumont M.D., [facility], mcgrath coronary artery without [facility] angina pectoris 06/07/2019 R06.02 Shortness of breath JOSÉ Rodriguez 06/07/2019 Z98.61 Coronary angioplasty status Sunny Dumont M.D., [facility], [facility] 06/07/2019 E11.40 Type 2 diabetes mellitus with JOSÉ Rodriguez diabetic neuropathy, unspecified 06/07/2019 R53.1 Weakness Sunny Dumont M.D., [facility], [facility] 06/07/2019 I48.91 Unspecified atrial fibrillation JOSÉ Rodriguez 06/06/2019 I25.10 Atherosclerotic heart disease of Sunny Dumont M.D., [facility], mcgrath coronary artery without FSCAI angina pectoris 06/06/2019 Z98.61 Coronary angioplasty status Sunny Dumont M.D., [facility], [facility] 06/06/2019 R07.9 Chest pain, unspecified Sunny Dumont M.D., [facility], [facility] 06/06/2019 R06.02 Shortness of breath JOSÉ Rodriguez 06/06/2019 R06.02 Shortness of breath Sunny Dumont M.D., [facility], [facility] 06/06/2019 E11.40 Type 2 diabetes mellitus with JOSÉ Rodriguez diabetic neuropathy, unspecified 06/06/2019 I48.91 Unspecified atrial fibrillation JOSÉ Rodriguez 06/05/2019 I25.10 Atherosclerotic heart disease of Sunny Dumont M.D., [facility], mcgrath coronary artery without [facility] angina pectoris 06/05/2019 Z98.61 Coronary angioplasty status Sunny Dumont M.D., [facility], [facility] 06/05/2019 E11.40 Type 2 diabetes mellitus with JOSÉ Rodriguez diabetic neuropathy, unspecified 06/05/2019 I48.91 Unspecified atrial fibrillation JOSÉ Rodriguez 06/04/2019 I21.9 Acute myocardial infarction, Zaynab Lindsay M.D. unspecified 06/04/2019 R07.9 Chest pain, unspecified Sunny Dumont M.D., [facility], [facility] 06/04/2019 R94.31 Abnormal electrocardiogram [ECG] Sunny Dumont M.D., [facility], [EKG] [facility] 06/04/2019 I25.10 Atherosclerotic heart disease of Sunny Dumont M.D., [facility], mcgrath coronary artery without [facility] angina pectoris 06/04/2019 E11.9 Type 2 diabetes mellitus without Shreya Darrell, [employer] complications 06/02/2019 Z95.0 Presence of cardiac pacemaker Tawny [...] Mason, N.P. 05/15/2019 I34.0 Nonrheumatic mitral (valve) Tawnydaniel Mason, N.P. insufficiency 05/15/2019 I48.2 Chronic atrial fibrillation Tawnydaniel Mason, N.P. 05/15/2019 I95.89 Other hypotension Tawnydaniel Mason, N.P. 05/14/2019 I34.0 Nonrheumatic mitral (valve) Gin Alvarado M.D. insufficiency 05/12/2019 R06.02 Shortness of breath Jesus Toscano M.D. 05/12/2019 E11.622 Type 2 diabetes mellitus with other Aster Audra Hermosillo NP skin ulcer 05/12/2019 L97.818 Non-pressure chronic ulcer of other Aster Dsouzahomar Herm[place], JOSHUA part of right lower leg with other specified severity 05/12/2019 R06.02 Shortness of breath Devin Ram MD, [facility], [facility] 05/12/2019 R07.9 Chest pain, unspecified Fior Contreras PA-C 05/12/2019 I48.91 Unspecified atrial fibrillation Fior Contreras PA-C 05/11/2019 L97.919 Non-pressure chronic ulcer of Keiry Rivera [employer] unspecified part of right lower leg with unspecified severity 05/11/2019 I48.91 Unspecified atrial fibrillation Keiry Turnerfield Doto, [employer] 05/11/2019 R06.02 Shortness of breath Keiry Turnerfield Huddlestono, [employer] 05/11/2019 R07.9 Chest pain, unspecified Keiry Huddlestono, [employer] 05/10/2019 R06.02 Shortness of breath Jesus Toscano M.D. 05/10/2019 I34.0 Nonrheumatic mitral (valve) Jesus Toscano M.D. insufficiency 05/10/2019 R06.02 Shortness of breath Lois Recio, PA 05/10/2019 R07.9 Chest pain, unspecified Lois Recio, PA 05/09/2019 R06.02 Shortness of breath Leah Vegackney, [employer] 05/09/2019 R07.9 Chest pain, unspecified Leahruchi Lui, [employer] 05/08/2019 R06.02 Shortness of breath Tawny Mason, N.P. 05/08/2019 Z95.0 Presence of cardiac pacemaker Tawny Mason, N.P. 05/08/2019 I34.0 Nonrheumatic mitral (valve) Tawny Mason, N.P. insufficiency 05/08/2019 I48.2 Chronic atrial fibrillation Tawny Mason, N.P. 05/05/2019 R06.02 Shortness of breath Nurse Visit IC 05/01/2019 L97.811 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 to breakdown of skin 05/01/2019 M67.461 Ganglion, right knee Jemal Condon MD 05/01/2019 Z89.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 great toe Jemal Condon MD 04/28/2019 R06.02 Shortness of breath Gin Alvarado [...] 03/24/2019 Z47.81 Encounter for orthopedic aftercare Lupe Berkeley, RPA-C following surgical amputa 03/24/2019 M67.461 Ganglion, right knee Lupe [place], RPA-C 03/09/2019 Z47.81 Encounter for orthopedic aftercare Jemal Condon MD following surgical amp 03/09/2019 Z89.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 great toe Jemal Condon MD 03/09/2019 M67.461 Ganglion, right knee Jemal Condon MD 03/04/2019 Z47.81 Encounter for orthopedic aftercare Jemal Condon MD following surgical amp 03/04/2019 Z89.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 great toe Jemal Condon MD 03/04/2019 M6Dana.461 Ganglion, right knee Jemal Condon MD 02/27/2019 M67.461 Ganglion, right knee Lupe Krissy, RPA-C 02/27/2019 Z89.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 great toe Lupe Krissy, RPA-C 02/27/2019 Z47.81 Encounter for orthopedic aftercare Lupe Berkeley, RPA-C following surgical amputa 02/18/2019 M67.461 Ganglion, right knee Jemal Condon MD 02/18/2019 Z89.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 great toe Jemal Condon MD 02/18/2019 Z47.81 Encounter for orthopedic aftercare Jemal Condon MD following surgical amputa 02/13/2019 M67.461 Ganglion, right knee Lupe Krissy, RPA-C 02/13/2019 Z89.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 great toe Lupe Krissy, RPA-C 02/13/2019 Z47.81 Encounter for orthopedic aftercare Lupe [place], RPA-C following surgical amputa 02/06/2019 M67.461 Ganglion, [...] Condon MD ankle and foot 01/15/2019 M67.461 Gely, right knee SAVAGE Izquierdo 01/06/2019 I48.2 Chronic atrial fibrillation Gin Alvarado M.D. 01/06/2019 I48.2 Chronic atrial fibrillation Tawny Mason, N.P. 01/06/2019 I49.5 Sick sinus syndrome Tawny Mason, N.P. 01/06/2019 Z95.0 Presence of cardiac pacemaker Tawny Mason, N.P. 01/05/2019 E11.40 Type 2 diabetes mellitus with Jemal Condon MD diabetic neuropathy, unspecifi 01/05/2019 Z79.4 jail (current) use of insulin Jemal Condon MD 01/05/2019 S91.111D Laceration without foreign body of Jemal Condon MD right great toe without d 01/05/2019 M67.461 Ganglion, right knee Jemal Condon MD 12/30/2018 Z79.4 long term (current) use of insulin Jemal Condon MD [...] Presence of cardiac pacemaker Remote Device Checks Plan of Treatment Future Appointment(s):07/20/2019 11:00 am - [facility] ECHO Schedule at [place] [facility]06/18/2019 - Tawny Mason, N.P.I21.3 St elevation (Stemi) myocardial infarction of unspecified siteNew Orders:Echocardiogram, Scheduled: 07/20/19New Therapy:Cardiac RehabFollow up:MOve out OV w/ LS to 1month after echoI25.10 Atherosclerotic heart disease of mcgrath coronary artery without angina ecuflcrqZ47.02 Shortness of zkdjhoY19.61 Coronary angioplasty nyulvaN98.40 Type 2 diabetes mellitus with diabetic neuropathy, unspecified Functional Status Description No Information Available Mental Status Description No Information Available Referrals Description No Information Available
--- OUTSIDE RECORDS SUMMARY | 2019-07-31 01:15 | XMS REPORT | Continuity of Care Document ---
:1955 External Reference #:[id number] Author Name Zaynab Lindsay M.D. 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 Problems Active Problems Provider Date Granulomatosis with [...] Test Result H/L Range Note Laboratory test [facility] B-Type 71 pg/mL <=100 finding [address] [place] [address] Peptide BNP [phone] Basic Metabolic [facility] Sodium 136 mmol/L Normal 135-145 Panel [address] [place] [address] [phone] Potassium 4.6 mmol/L Normal 3.5-5.0 Chloride 95 mmol/L Low 101-111 Co2 Carbon Dioxide 29 mmol/L Normal 22-32 Anion Gap 12 mmol/L High 2-11 Glucose 328 mg/dL High 70-100 Blood Urea Nitrogen 43 mg/dL High 6-24 Creatinine 1.20 mg/dL High 0.51-0.95 BUN/Creatinine Ratio 35.8 High 8-20 Calcium 9.8 mg/dL Normal 8.6-10.3 Egfr Non- 45.2 >60 Egfr 54.7 >60 1 CBC Auto 05/08/2019 [facility] White Blood 8.6 10^3/uL Normal 3.5-10.[address] [place] [address] [phone] Red Blood Count 5.19 10^6/uL High 3.70-4.87 [...] Blood Cells % 0.1 Laboratory test 01/15/2019 [facility] Surgical SEE RESULT [address] [place] [address] [phone] Laboratory test 01/15/2019 [facility] Point of Care 162 mg/dL High 70-10 [address] Glucose 0 [place] [address] [phone] Inr/Protime 01/15/2019 [facility] Inr 2.61 High 0.82- [address] 1.09 [place] [address] [phone] Laboratory test 01/15/2019 [facility] Point of Care 139 mg/dL High 70-10 [address] Glucose 0 [place] [address] [phone] 1 Because ethnic data is not always [...] [address]: Jemal Condon MD Acct: [id number] Unit: [id number] AGE: 64 Location: OR Re01/15/19 SEX: F Status: JE LEY SPEC: [id number] CHELSEA: 01/15/19- SUBM DR: Jemal Condon MD REQ: [id number] RECD: 01/15/19 STATUS: SOUT _ ORDERED: Artemio, [...] paniagua-pink. The skin margin is inked and automobile sales representative sections CONTINUED ON NEXT PAGE DEPARTMENT OF PATHOLOGY, [address] [place] [address] Ajit Lamb M.D. Director [facility] # [id number] RUN DATE: 01/22/19 [facility] LAB LIVE PAGE 2 Patient: AYANNA MOHAMUD [id number] (Continued) GROSS DESCRIPTION (Continued) are submitted in cassettes A and B to include bone following decalcification in cassette A. 2. The specimen is received in formalin labeled, Right Knee Ganglion Cyst, and consists of a 5.0 x 3.4 x 1.0 cm paniagua-pink shaggy focally disrupted rubbery unilocular cyst containing paniagua-pink mucus. The specimen is serially sectioned and automobile sales representative sections are submitted in one cassette. Signed by and Reported on: Briseyda Conley MD 01/16/19 1341 END OF REPORT DEPARTMENT OF PATHOLOGY, [address] [place] [address] Ajit Lamb M.D. Director [facility] # [id number] 3 Staff Sonographer: [id number] Standard intensity warfarin therapeutic range: 2.0-3.0 High intensity warfarin therapeutic range: 2.5-3.5 5 Staff Sonographer: [id number] Procedures Date Code Description Status 05/14/2019 35058 Moderate Sedation Services; Same Phys Intl 15 Mins; PT >= Completed 5 Years 05/14/2019 37062 Color Flow Doppler/Interp & Reprt Completed 05/14/2019 80982 Pulse Wave/Continuous-Interp.RPT Completed 05/14/2019 67587 Echocardiography, Transesophageal, Real Time W/Image 2D Completed W/W/O M-M 05/12/2019 75399 Treadmill Interp/Report Only Completed 05/12/2019 19592 Stress Test Supervsn W/Out I/R Completed 04/28/2019 32522 ECHO Transthoracic, Real-Time 2D With Doppler And Color Completed Flow 04/28/2019 06316 ECHO Transthoracic, Real-Time 2D With Doppler And Color Completed Flow 04/28/2019 70766 Interrogation Device Eval In Person W/DR Completed Analysis,Single,Dual,Mul 04/28/2019 65712 Interrogation Device Eval In Person W/ Completed Analysis,Single,Dual,Mul 03/09/201935143 Aspiration &/Or Inj Of Ganglion Cyst(S) Any Location Completed 02/27/2019 27492 Aspiration &/Or Inj Of Ganglion Cyst(S) Any Location Completed 01/15/2019 82792 Amputation,Toe;Interphalangeal Joint Completed 01/15/2019 25108 Excision Lesion Meniscus/Capsule Knee Completed 01/15/2019 67134 Excision Lesion Meniscus/Capsule Knee Completed 01/06/2019 84200 EKG Tracing & Interpretation Completed 12/18/2018 46301 Icd Eval Sing,Dual,Multi Lead Remote Recpt Transm Tech Rev Completed Tech S 12/18/2018 26533 Icd Eval Sing,Dual,Multi Lead Remote Recpt Transm Tech Rev Completed Tech S 12/18/2018 77957 Pacemaker Check Remote Up To 90Days Single,Dual,Multiple Completed Lead 12/18/2018 83471 Pacemaker Check Remote Up To 90Days Single,Dual,Multiple Completed Lead Medical Devices Description No Information Available Encounters Type Date Location Provider Dx Diagnosis Office Visit 06/02/2019 [facility] Tawny Mason, Z95.0 Presence of 11:30a Of Career Services Representative N.P. cardiac pacemaker R06.02 Shortness of breath I34.0 Nonrheumatic mitral (valve) insufficiency I48.2 Chronic atrial fibrillation Office Visit 05/22/2019 [facility] Roseanna, S93.492A Sprain of other 10:15a Orthopedics at [facility] left ankle, initial encounter Office Visit 05/15/2019 [facility] Tawny Mason, Z95.0 Presence of 10:30a Of Career Services Representative N.P. cardiac pacemaker R06.02 Shortness of breath I34.0 Nonrheumatic mitral (valve) insufficiency I48.2 Chronic atrial fibrillation I95.89 Other hypotension Office Visit 05/12/2019 8:15a [facility] Aster Zhu E11.622 Type 2 diabetes Center [facility] [place] mellitus with other skin ulcer L97.818 Non-prs chronic ulcer oth prt r low leg with oth severity Office Visit 05/12/2019 9:10a [facility] Fior R07.9 Chest pain, Assoc,pc O'meet, PA-C unspecified Hospitalists I48.91 Unspecified atrial fibrillation Office Visit 05/12/2019 2:42p [facility] Jesus Landis R06.02 Shortness of Of Jerry Toscano M.D. breath Office Visit 05/11/2019 9:09a [facility] L97.919 Non-prs chronic Assoc,pc Ree Rivera, [facility] unsp prt of Hospitalists SERICULTURIST r low leg w unsp severity I48.91 Unspecified atrial fibrillation R06.02 Shortness of breath R07.9 Chest pain, unspecified Office Visit 05/10/2019 2:25p [facility] Jesus Landis R06.02 Shortness of Of Jerry Toscano M.D. breath I34.0 Nonrheumatic mitral (valve) insufficiency Office Visit 05/09/2019 9:08a [facility] R06.02 Shortness of Assoc,sarah Lui NP breath Hospitalists R07.9 Chest pain, unspecified Office Visit 05/08/2019 10:00a [facility] Tawny S. R06.02 Shortness of Of Career Services Representative Foster, N.P. breath Z95.0 Presence of cardiac pacemaker I34.0 Nonrheumatic mitral (valve) insufficiency I48.2 Chronic atrial fibrillation Office Visit 05/05/2019 10:00a [facility] Nurse Visit R06.02 Shortness of Of Career Services Representative IC breath Office Visit 05/01/2019 10:30a [facility] L97.811 Non-prs chr at [facility] MD ulcer oth prt r low leg limited to brkdwn skin M67.461 Ganglion, right knee Z89.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 great toe Office Visit 04/24/2019 1:30p [facility] Gin Alvarado, I48.2 Chronic atrial Of Career Services Representative M.DAlyssa fibrillation Z95.0 Presence of cardiac pacemaker R06.02 Shortness of breath Office Visit 04/17/2019 2:15p [facility] [place]anna Z47.81 Encounter for Orthopedics at orthopedic [facility] following surgical amp 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 I48.2 Chronic atrial Of Jerry Mason, N.P. fibrillation I49.5 Sick sinus syndrome Z95.0 Presence of cardiac pacemaker Office Visit 12/30/2018 10:15a [facility] [place], Z79.4 assisted at [facility] (current) use of insulin E11.40 Type 2 diabetes mellitus with diabetic neuropathy, unsp S91.111D Lac w/o fb of right great toe w/o damage to nail, subs M67.461 Ganglion, right knee Office Visit 12/16/2018 9:00a [facility] [place] S91.111D Lac w/o fb at [facility] of right great toe w/o damage to nail, subs S91.112D Laceration w/o fb of left great toe w/o damage to nail, subs Z79.4 assisted (current) use of insulin E11.40 Type 2 diabetes mellitus with diabetic neuropathy, unsp M67.461 Ganglion, right knee Office Visit 12/09/2018 10:00a [facility] [place] Z79.4 assisted at [facility] MD (current) use of insulin E11.42 Type [...] L97.818 Non-pressure chronic ulcer of Aster [place], SERICULTURIST other part of right lower leg with other specified severity 05/12/2019 R06.02 Shortness of breath Devin Ram MD, [facility] 05/12/2019 R07.9 Chest pain, unspecified Fior Contreras PA-C 05/12/2019 I48.91 Unspecified atrial fibrillation Fior Contreras PA-C 05/11/2019 L97.919 Non-pressure chronic ulcer of Keiry Huddlestonamber, SERICULTURIST unspecified part of right lower leg with unspecified severity 05/11/2019 I48.91 Unspecified atrial fibrillation Keirymariela Keenan Doto, SERICULTURIST 05/11/2019 R06.02 Shortness of breath Keiry Keenan Doto, SERICULTURIST 05/11/2019 R07.9 Chest pain, unspecified Keiry Ree Doto, SERICULTURIST 05/10/2019 R06.02 Shortness of breath Jesus Toscano M.D. 05/10/2019 I34.0 Nonrheumatic mitral (valve) Jesus Toscano M.D. insufficiency 05/10/2019 R06.02 Shortness of breath Lois Recio, PA 05/10/2019 R07.9 Chest pain, unspecified Lois Recio, PA 05/09/2019 R06.02 Shortness of breath Leah Lui, SERICULTURIST 05/09/2019 R07.9 Chest pain, unspecified Leah Lui, SERICULTURIST 05/08/2019 R06.02 Shortness of breath Tawny Mason [...] 03/24/2019 Z47.81 Encounter for orthopedic aftercare Lupe [place], RPA-C following surgical amputa 03/24/2019 M67.461 Ganglion, [...] MD 02/27/2019 M67.461 Ganglion, right knee Lupe [place], RPA-C 02/27/2019 Z89.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 great Lupe Krissy, RPA-C toe 02/27/2019 Z47.81 Encounter for orthopedic aftercare Lupe [place], RPA-C following surgical amputa 02/18/2019 M67.461 Ganglion, right knee Jemal Condon MD 02/18/2019 Z89.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 debra Condon MD toe 02/18/2019 Z47.81 Encounter for orthopedic aftercare Jemal Condon MD following surgical amputa 02/13/2019 M67.461 Ganglion, right knee Lupe [place], RPA-C 02/13/2019 Z89.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 [...] Condon MD diabetic neuropathy, unspecifi 01/05/2019 Z79.4 rn long term care (current) use of insulin Jemal Condon MD 01/05/2019 S91.111D Laceration without foreign body of Jemal Condon MD right great toe without d 01/05/2019 M67.461 Gely, right knee Jemal Condon MD 12/30/2018 Z79.4 rn long term care (current) use of insulin [...] w/o damage to nail, subs 12/16/2018 Z79.4 rn long term care (current) use of insulin Jemal Condon MD 12/16/2018 E11.40 Type 2 diabetes mellitus with Jemal Condon MD diabetic neuropathy, unsp 12/16/2018 M67.461 Ganglion, right knee Jemal Condon MD 12/09/2018 Z79.4 rn long term care (current) use of insulin [...] 9:00 am - Gin Alvarado M.D. at [facility] - Tawny Mason N.P.Z95.0 Presence of cardiac wuhjffwdiF96.02 Shortness of breathRecommendations:Ok to decrease torsemide to [...]
--- NOTE | 2019-07-31 01:54 | ED ---
Lower Extremity - HPI Summary HPI Summary: 64-year-old female with history of diabetic neuropathy presents with left great toe injury. States she was walking in her house without shoes when she actually caught her left great toe on the carpet causing a hyperflexion injury. Denies any pain as she states that she has no feeling secondary to her neuropathy. She reports a laceration to the dorsal aspect of the left great toe immediately proximal to the toenail. Bleeding was controlled prior to arrival. States tetanus is up-to-date. - History of Current Complaint Chief Complaint: EDExtremityLower Stated Complaint: TOE LAC PER PT Time Seen by Provider: 07/31/19 01:01 Hx Obtained From: Patient Pain Intensity: 0 - Allergies/Home Medications Allergies/Adverse Reactions: Allergies Allergy/AdvReac Type Severity Reaction Status Date / Time albuterol Allergy Difficulty Verified 07/31/19 00:14 Swallowing latex Allergy Unknown Verified 07/31/19 00:14 Reaction Details pregabalin [From Lyrica] Allergy Altered Verified 07/31/19 00:14 Mental Status codeine AdvReac Intermediate GI Upset Verified 07/31/19 00:14 hydrocodone AdvReac Intermediate GI Upset Verified 07/31/19 00:14 metformin AdvReac Intermediate Nausea Verified 07/31/19 00:14 Sulfa (Sulfonamide AdvReac Intermediate Nausea Verified 07/31/19 00:14 Antibiotics) sulfamethoxazole AdvReac Intermediate Nausea Verified 07/31/19 00:14 [From Bactrim] trimethoprim [From Bactrim] AdvReac Intermediate Nausea Verified 07/31/19 00:14 PMH/Surg Hx/FS Hx/Imm Hx Endocrine/Hematology History: Reports: Hx Anticoagulant Therapy, Hx Diabetes Denies: Hx Thyroid Disease Comment Only: Hx Anemia - PT DOES TAKE COUMADIN DAILY, INSTRUCTED TO TAKE PRE -OP Cardiovascular History: Reports: Hx Angina - PACEMAKER, A-FIB, Hx Auto Implanted Cardiovert Defib, Hx Congestive Heart Failure - Hx OF, Hx Embolism, Hx Hypercholesterolemia, Hx Hypertension - ON DAILY MEDS, Hx Pacemaker/ICD - put in 2010, new battery 2016, Hx Peripheral Vascular Disease, Other Cardiovascular Problems/Disorders - FOLLOWED BY DR PARKER Denies: Hx Coronary Artery Disease, Hx Myocardial Infarction, Hx Valvular Heart Disease Respiratory History: Reports: Hx Pulmonary Embolism - EARLY , Hx Sleep Apnea - DOES NOT USE CPAP, Other Respiratory Problems/Disorders - wegeners granulomatosis Denies: Hx Asthma, Hx Chronic Obstructive Pulmonary Disease (COPD) GI History: Reports: Hx Gall Bladder Disease, Hx Gastroesophageal Reflux Disease - ON DAILY MEDS Musculoskeletal History: Reports: Hx Arthritis - FEET, HANDS, Hx Back Problems, Other Musculoskeletal History - SPINAL STENOSIS Sensory History: Reports: Hx Contacts or Glasses Denies: Hx Cataracts, Hx Hearing Aid, Hx Hearing Problem, Other Sensory Impairments Opthamlomology History: Reports: Hx Contacts or Glasses Denies: Hx Cataracts, Other Sensory Impairments Neurological History: Reports: Hx Nerve Disease, Other Neuro Impairments/ Disorders - neuropathy - hands and feet, spinal stenosis Psychiatric History: Reports: Hx Anxiety - ON DAILY MEDS, Hx Depression - Cancer History Cancer Type, 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 - Surgical History Surgery Procedure, Year, and Place: CHOLECYSTECTOMY, - 1972. SCAR TISSUE REMOVAL - gallbladder - 3 times, most recent ~1998. tubal ligation - 1978. hysterectomy -1994. pacemaker - 2010,. new battery 2016, [facility]. [facility] [place] [facility] [place]. toe amputated - ~2013, outpt surgical [facility] Hx Anesthesia Reactions: No - Immunization History Date of Tetanus Vaccine: 2017 Date of Influenza Vaccine: 07/04/2017 Infectious Disease History: No Infectious Disease History: Reports: Hx Shingles Denies: Hx Clostridium Difficile, Hx Hepatitis, Hx Human Immunodeficiency Virus (HIV), Hx of Known/Suspected MRSA, Hx Tuberculosis, Hx Known/Suspected VRE , Hx Known/Suspected VRSA, History Other Infectious Disease, Traveled Outside the [place] in Last 30 Days - Family History Known Family History: Positive: Diabetes, Non-Contributory - Social History Alcohol Use: None Hx Substance Use: No Substance Use Type: Reports: None Hx Tobacco Use: No Smoking Status (MU): Never Smoked Tobacco Have You Smoked in the Last Year: No Physical Exam Vital Signs On Initial Exam: Initial Vitals Temp Pulse Resp BP Pulse Ox 98.7 F 78 16 121/66 100 07/31/19 00:09 07/31/19 00:09 07/31/19 00:09 07/31/19 00:09 07/31/19 00:09 Procedures - Procedure Summary Procedure Summary: Procedure note: Laceration repair left great toe Informed consent was obtained before procedure started and the appropriate timeout was taken. The area was prepped and draped in the usual sterile fashion. Local anesthesia was achieved using 3 ml of lidocaine 1% without epinephrine. The wound was copiously irrigated and cleansed with a sterile saline and chlorhexadine solution. The wound margins were brought into good alignment and the laceration closed using a continuous running suture with 10 throws using 5-0 Prolene. Total length of wound after repair was 3 cm. Estimated blood loss was minimal. A dressing was applied to the area. Anticipatory guidance, as well as standard post-procedure care was discussed with patient. Return precautions were given. The patient tolerated the procedure well without complications. Patient is to follow up in 14 days for suture removal and evaluation of the laceration. - Sedation Patient Received Moderate/Deep Sedation with Procedure: No Diagnostics - Vital Signs Vital Signs Temp Pulse Resp BP Pulse Ox 07/31/19 00:09 98.7 F 78 16 121/66 100 - Laboratory Lab Statement: Any lab studies that have been ordered have been reviewed, and results considered in the medical decision making process. - Radiology No standard instances Radiology Interpretation Completed By: ED Physician - Open, non-diplaced fracture of the distal phalanx of the left great toe Lower Extremity Course/Dx - Course Course Of Treatment: 64-year-old female with history of diabetic neuropathy presents with left great toe injury. States she was walking in her house without shoes when she actually caught her left great toe on the carpet causing a hyperflexion injury. Denies any pain as she states that she has no feeling secondary to her neuropathy. She reports a laceration to the dorsal aspect of the left great toe immediately proximal to the toenail. Bleeding was controlled prior to arrival. States tetanus is up-to-date. - Diagnoses Differential Diagnosis/HQI/PQRI: Positive: Dislocation, Fracture (Open), Sprain , Other - Laceration Provider Diagnoses: Open fracture of distal phalanx of left great toe Discharge ED - Sign-Out/Discharge Documenting (check all that apply): Patient Departure - Discharge Plan Condition: Stable Disposition: HOME Patient Education Materials: Toe Fracture (ED) Referrals: Long Calderón MD [Primary Care Provider] - Jemal Condon MD [Medical Doctor] - 3 Days (Follow up in 3-5 days for further evaluation and treatment. Call for appointment.) Additional Instructions: The x-ray performed in the clinic today showed evidence of a possible open fracture of the distal phalanx of the left great toe. Start cephalexin 500 mg three times a day for 5 days to prevent infection. Rest the foot as much as possible. Wear the post-op shoe provided to you in the emergency room for support and protection. Apply ice to the affected area for 15-20 minutes at least 4 times a day to help with the pain and swelling. Elevate the foot to help reduce swelling. Take acetaminophen (Tylenol) according to directions as needed for pain. Follow up with orthopedic surgery in 3-5 days for further evaluation and treatment. Seek immediate medical attention if you have severe pain not managed with pain medication, you are unable to walk or bear any weight, or have any worsening of symptoms. Leave the dressing that was applied in the emergency room in place for the next 24 hours. Be sure to keep it clean and dry. After 24 hours, you may remove the dressing and shower and wash hands as normal. Do not submerge the foot under water to prevent infection. Clean the wound with a mild soap and water at least once a day. Apply some antibiotic ointment and cover with a bandage. This should be changed at least once a day or any time the dressing becomes wet or soiled. Sutures will need to be removed in 14 days. Watch for signs of infection including fever greater than 100.5 F, redness that spreads, red streaking up the leg, swelling of the foot/toe, or pus draining from the wound. Seek immediate medical attention should any of these occur. - Billing Disposition and Condition Condition: STABLE Disposition: Home
[2019-07-31] MEDS: Cephalexin CAP* 500 MG PO ONE (02:36)
[2019-07-31] MEDS: Bacitracin OINTMENT* 0.5% 0.5 oz TUBE TOPICAL ONE (02:41)
[2019-07-31 03:03] VITALS: BP 104/52
== END 2019-07-31 02:58 | disposition home or self-care (01) ==
LOC: ED 00:02
DX: S92.422B Displaced fracture of distal phalanx of left great toe, initial encounter for open fracture (principal); W22.8XXA Striking against or struck by other objects, initial encounter; Y92.009 Unspecified place in unspecified non-institutional (private) residence as the place of occurrence of the external cause; I48.91 Unspecified atrial fibrillation; I11.0 Hypertensive heart disease with heart failure; I50.9 Heart failure, unspecified; E78.00 Pure hypercholesterolemia, unspecified; I73.9 Peripheral vascular disease, unspecified; F41.9 Anxiety disorder, unspecified; Z90.49 Acquired absence of other specified parts of digestive tract; Z90.710 Acquired absence of both cervix and uterus; Z95.0 Presence of cardiac pacemaker; Z79.01 Long term (current) use of anticoagulants; Z79.899 Other long term (current) drug therapy; Z88.5 Allergy status to narcotic agent; Z88.2 Allergy status to sulfonamides; Z88.8 Allergy status to other drugs, medicaments and biological substances; Z88.1 Allergy status to other antibiotic agents; Z91.040 Latex allergy status
CPT/HCPCS: 99282; A9270-GY

== ENCOUNTER 2019-08-25 07:43 | Day surgery (SDC) | payer MEDICARE, OTHER ==
[~2019-08-25 07:43] MED LIST changes: +Lactated Ringers 1000 ML Bag* 1,000 ML IV SCH; -ceFAZolin 2 GM PREMIX in ORs 2 GM/50 ML BAG IVPB ONE; +ceFAZolin 2 GM PREMIX in ORs 2 GM/50 ML BAG ONE
[2019-08-25] MEDS ORDERED: fentaNYL* 50 MCG/ML 2 ML VIAL (100 MCG VIAL) ONE (10:13)
[2019-08-25] MEDS ORDERED: Midazolam* 1 MG/ML 2 ML VIAL (2 MG) ONE (10:13)
[2019-08-25] MEDS ORDERED: Famotidine IV* 10 MG/ML 2 ML (20 mg) ONE (10:17)
[2019-08-25] MEDS ORDERED: Lidocaine 2% PF * 5 ML VIAL ONE (10:25)
[2019-08-25] MEDS ORDERED: Ondansetron INJ* 2 MG/ML VIAL ONE (10:25)
[2019-08-25] MEDS ORDERED: Propofol* 10 MG/ML 20 ML BTL ONE (10:25)
[2019-08-25] MEDS ORDERED: Bupivacaine 0.5%* 50 ML MDV VIAL ONE (10:33)
[2019-08-25] MEDS ORDERED: Lidocaine 2% PF* 10 ML AMP ONE (10:34)
[2019-08-25] MEDS ORDERED: Naloxone* 0.4 MG/ML 1 ML VIAL IV PRN (10:47)
[2019-08-25] MEDS ORDERED: DiMENhydriNATE IV* 50 MG/ML VIAL IV PUSH PRN (10:47)
[2019-08-25] MEDS ORDERED: Acetaminophen IV 1GM/100ML * 1,000 MG/100 ML VIAL IVPB ONE (10:47)
[2019-08-25] MEDS ORDERED: Metoclopramide IV* 5 MG/ML 2 ML VIAL IV PRN (10:47)
[2019-08-25] MEDS ORDERED: Ondansetron INJ* 2 MG/ML VIAL IV PRN (10:47)
--- NOTE | 2019-08-25 11:13 | OP ---
Operative Report - Blank - Operative Report Date of Operation: 08/25/19 Note: PATIENT: Ayanna Leon DATE OF : 1955 DATE OF SURGERY: 08/25/2019 SURGEON: Jemal Condon MD GEOSCIENCE PROFESSOR: JOSÉ Izquierdo, whos assistance was necessary for positioning, retraction, help with instrumentation, and closure. ANESTHESIOLOGIST: Dr. 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 INDICATIONS FOR PROCEDURE: Ayanna continues to get injuries to her left great toe from her neuropathy and flexion contracture at the IP joint. She previously underwent a partial right great toe amputation and has done very well with that. She has decided to have the same procedure done on the left. Both operative and non operative treatment alternatives were reviewed. Further, the nature and risks of surgery were reviewed in careful detail. Our discussions regarding the risks of surgery included, but were not limited to, wound infection, wound problems, nerve injury , neuroma, RSD, persistent symptoms, bleeding, blood clot, infection, failure of the surgery, need for further amputation, and even the remote chance of catastrophic complication. DESCRIPTION OF PROCEDURE: The patient was seen in the preoperative holding unit and informed written consent was obtained. The appropriate extremity was marked. The patient was then brought to the operating room and carefully positioned on the operating room table. Anesthesia was induced. All bony prominences were padded with great care. A chlorhexidine based pre-scrub was performed followed by a chloraprep prep and drape in standard sterile fashion. A surgical safety pause was then conducted in which we confirmed the appropriate patient, extremity, planned procedure, availability of equipment, indication and administration of antibiotics. I made an incision to remove the distal aspect of the toe. I maintained as much healthy soft-tissue length as was possible. The phalanges were dissected out and the toe was amputated at the level of the IP joint. The toe was then sent to pathology. The remaining soft tissues were healthy appearing. We then irrigated copiously. The skin edges were pink. We closed with 3-0 vicryl and then 3-0 nylon and then placed a sterile dressing. The patient was then awakened from anesthesia and transferred to the recovery room in stable condition. There were no complications. All needle and sponge counts were correct at the end of the case. ATTESTATION: I attest I was present and scrubbed and performed the critical portions of the procedure myself. POSTOPERATIVE PLAN: The patient may be heel weight-bearing in a post-operative shoe and will follow up will be in two weeks for a wound check, but we will likely leave the sutures in for 3 weeks.
[2019-08-25 11:51] VITALS: BP 106/54
== END 2019-08-25 12:26 | disposition home or self-care (01) ==
LOC: OR 07:43
PROVIDERS: ATTEND Orthopaedic Surgery
DX: M20.5X2 Other deformities of toe(s) (acquired), left foot (principal); Z86.711 Personal history of pulmonary embolism; Z79.01 Long term (current) use of anticoagulants; E11.40 Type 2 diabetes mellitus with diabetic neuropathy, unspecified; Z79.4 Long term (current) use of insulin; Z79.84 Long term (current) use of oral hypoglycemic drugs; I48.91 Unspecified atrial fibrillation; I25.2 Old myocardial infarction; G47.33 Obstructive sleep apnea (adult) (pediatric); I25.10 Atherosclerotic heart disease of native coronary artery without angina pectoris; I10 Essential (primary) hypertension; Z95.0 Presence of cardiac pacemaker; F41.8 Other specified anxiety disorders
CPT/HCPCS: J0690; J2001; J2250; J2405; J2704; J3010; J3490

== ENCOUNTER 2019-09-16 11:11 | Emergency (ER) | payer MEDICARE, OTHER ==
--- OUTSIDE RECORDS SUMMARY | 2019-09-16 11:44 | XMS REPORT | Continuity of Care Document ---
:1955 External Reference #:[id number] Author Name Gin Alvarado M.D. 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 Onset: 08/17/2019 Coronary arteriosclerosis in patient with Gin Alvarado M.D. Onset: 2018 history of previous myocardial infarction Permanent atrial fibrillation Gin Alvarado M.D. Onset: 08/17/2019 Social History Type Date Description Comments Sex Unknown Tobacco Use Start: Unknown Never Smoked Cigarettes Smoking Status Reviewed: 08/17/19 Never Smoked Cigarettes ETOH Use Denies alcohol [...] per patient 07/22/2015 Cipro hallucinating Severe 06/02/2019 Doxycycline hallucinations 08/17/2019 Medications Active Medications SIG Qnty Indications Ordering Date Provider Pantoprazole Sodium 1 by mouth 90tabs Tawny Mason, 07/10/2019 every day N.P. 40mg Tablets Clopidogrel Bisulfate 1 by mouth 90tabs Gin Alvarado, 06/17/2019 every day M.DAlyssa 75mg Tablets Atorvastatin Calcium 1 by mouth 90tabs Tawny Mason, 06/17/2019 every day N.P. 80mg Tablets Torsemide 2 by mouth 180tabs Gin Alvarado, [...] 2units Lennox Babcock, 02/25/2018 daily as needed M.D. Misc for leg/foot swelling Keflex 1 tab by mouth Unknown 500mg Capsules three times a day x 5 days Eliquis 1 by mouth 90tabs Gin Alvarado, 5mg Tablets twice a day M.D. Metoprolol Succinate 1/2 by mouth 45tabs Gin Alvarado, ER every day M.D. 25mg Tablets ER 24HR Isosorbide Dinitrate 1/2 by mouth 45tabs Gin Alvarado, every day M.D. 30mg Tablets Humalin Kwik Pen 30 in the Unknown morning 30 at night Flonase Allergy 2 puffs each Unknown Relief nare every in 50mcg/Act the morning Suspension Victoza inject 1.8 mg Unknown 18mg/3ML daily in the Solution Pen-Inject morning Tylenol take 1-2 as Unknown 325mg Tablets needed every 4 hours Invokana 1 by mouth Unknown 300mg Tablets every day Humalog 20 units before Pesesky, 100Unit/ML meals on Geno M., Solution sliding scale N.P. has needed Gabapentin 1 cap po bid Pesesky, 300mg Geno M., Capsules N.P. Buspirone HCL 2 tabs po hs 60tabs Unknown 15mg Tablets History Medications Keflex 1 tab by mouth 28caps Jemal Condon MD 04/03/2019 - 500mg Capsules four times a day 04/23/2019 Keflex 1 tab by mouth 28caps Jemal Condon MD 02/19/2019 - 500mg Capsules four times a day 03/03/2019 Immunizations Description No Information Available Vital Signs Date Vital Result Comment 08/17/2019 1:42pm Height 67 inches 5'7" Weight 216.00 lb with shoes Heart Rate 80 /min BP Systolic Sitting 110 mmHg Lue lg cuff BP Diastolic Sitting 70 mmHg Lue lg cuff BP Systolic Standing 102 mmHg Lue lg cuff BP Diastolic Standing 70 mmHg Lue lg cuff Respiratory Rate 16 /min BMI (Body Mass Index) 33.8 kg/m2 Ejection Fraction 50% date07/20/2019 ECHO 08/03/2019 1:36pm Height 67 inches 5'7" Weight 215.00 lb Heart Rate 72 /min BP Systolic 100 mmHg BP Diastolic 72 mmHg Respiratory Rate 18 /min Body Temperature 98.1 F Pain Level 1 BMI (Body Mass Index) 33.7 kg/m2 Results Test Acquired Date Facility Test Result H/L Range Note Lipid Panel - 08/03/2019 [facility] Creatine 59 U/L Normal 10- 223 1, [address] Kinase(CK) [place] [address] [phone] Comp Metabolic 08/03/2019 [facility] Sodium 141 mmol/L Normal 135-[address] [place] [address] [phone] Potassium 4.8 mmol/L Normal 3.5-5.0 Chloride 106 mmol/L Normal 101-111 Co2 Carbon Dioxide 26 mmol/L Normal 22-32 Anion Gap 9 mmol/L Normal 2-11 Glucose 153 mg/dL High 70-100 Blood Urea Nitrogen 22 mg/dL Normal 6-24 Creatinine 0.94 mg/dL Normal 0.51-0.95 BUN/Creatinine Ratio 23.4 High 8-20 Calcium 9.8 mg/dL Normal 8.6-10.3 Total Protein 7.4 g/dL Normal 6.4-8.9 Albumin 3.7 g/dL Normal 3.2-5.2 Globulin 3.7 g/dL Normal 2-4 Albumin/Globulin Ratio 1.0 Normal 1-3 Total Bilirubin 0.80 mg/dL Normal 0.2-1.0 Alkaline Phosphatase 68 U/L Normal 34-104 Alt 16 U/L Normal 7-52 Ast 24 U/L Normal 13-39 Egfr Non- 60.0 >60 Egfr 72.5 >60 3 Lipid Profile 08/03/2019 [facility] Triglycerides 95 mg/dL 4 (Trig/Chol/HDL) [address] [place] [address] [phone] Cholesterol 137 mg/dL 5 HDL Cholesterol 68.2 mg/dL 6 LDL Cholesterol 50 mg/dL 7 Basic Metabolic 06/16/2019 [facility] Sodium 138 mmol/L Normal 135-[address] [place] [address] [phone] Potassium 4.7 mmol/L Normal 3.5-5.0 Chloride 98 mmol/L Low 101-111 Co2 Carbon Dioxide 32 mmol/L Normal 22-32 Anion Gap 8 mmol/L Normal 2-11 Glucose 172 mg/dL High 70-100 Blood Urea Nitrogen 37 mg/dL High 6-24 Creatinine 1.03 mg/dL High 0.51-0.95 BUN/Creatinine Ratio 35.9 High 8-20 Calcium 9.8 mg/dL Normal 8.6-10.3 Egfr Non- 53.9 >60 Egfr 65.3 >60 8 Laboratory test 05/08/2019 [facility] B-Type 71 pg/mL <=[address] [place] [address] Peptide BNP [phone] Basic Metabolic 05/08/2019 [facility] Sodium 136 Normal 135- [address] mmol/[place] [address] [phone] Potassium 4.6 mmol/L Normal 3.5-5.0 Chloride 95 mmol/L Low 101-111 Co2 Carbon Dioxide 29 mmol/L Normal 22-32 Anion Gap 12 mmol/L High 2-11 Glucose 328 mg/dL High 70-100 Blood Urea Nitrogen 43 mg/dL High 6-24 Creatinine 1.20 mg/dL High 0.51-0.95 BUN/Creatinine Ratio 35.8 High 8-20 Calcium 9.8 mg/dL Normal 8.6-10.3 Egfr Non- 45.2 >60 Egfr 54.7 >60 9 CBC Auto 05/08/2019 [facility] White Blood 8.6 10^3/uL Normal 3.5-10.[address] [place] [address] [phone] Red Blood Count 5.19 10^6/uL High 3.70-4.87 [...] % Nucleated Red Blood Cells % 0.1 1 FASTING 6 weeks Copy Result to: IVÁN CALDERÓN ([id number]) 2 FASTING 6 weeks Copy Result to: IVÁN CALDERÓN ([id number]) 3 Because ethnic data is not always [...] 5 Kidney failure <15 (or dialysis) 4 Desirable: <150 Borderline High: 150-199 High: 200-499 Very High: >500 5 Desirable: <200 Borderline High: 200-239 High: >239 6 Low: <40 Desirable: 40-60 High: >60 7 Desirable: <100 Near Optimal: 100-129 Borderline High: 130-159 High: 160-189 Very High: >189 8 Because ethnic data is not always [...] 5 Kidney failure <15 (or dialysis) 9 Because ethnic data is not always [...] (or dialysis) Procedures Date Code Description Status 08/17/2019 09389 EKG Tracing & Interpretation Completed 07/20/2019 17191 ECHO Transthoracic, Real-Time 2D With Doppler And Color Completed Flow 07/20/2019 22443 ECHO Transthoracic, Real-Time 2D With Doppler And Color Completed Flow 06/18/2019 49454 EKG Tracing & Interpretation Completed 06/07/2019 46108 EKG, Interpretation Only Completed 06/06/2019 41930 EKG, Interpretation Only Completed 06/04/2019 40209 Cath PLMT&NJX L Ventriculog Img S&I Completed 06/04/2019 76774 ECHO Transthorasic Realtime 2D W Doppler & Color Flow Hosp Completed 06/04/2019 17348 Percutaneous Transcatheter Placement Of Intracoronary Completed Stent 05/14/2019 77647 Echocardiography, Transesophageal, Real Time W/Image 2D Completed W/W/O M-M 05/14/2019 98611 Pulse Wave/Continuous-Interp.RPT Completed 05/14/2019 19307 Color Flow Doppler/Interp & Reprt Completed 05/14/2019 79738 Moderate Sedation Services; Same Phys Intl 15 Mins; PT >= Completed 5 Years 05/12/2019 03579 Treadmill Interp/Report Only Completed 05/12/2019 93261 Stress Test Supervsn W/Out I/R Completed 05/10/2019 71802 EKG, Interpretation Only Completed 04/28/2019 40037 ECHO Transthoracic, Real-Time 2D With Doppler And Color Completed Flow 04/28/2019 92491 ECHO Transthoracic, Real-Time 2D With Doppler And Color Completed Flow 04/28/2019 15579 Interrogation Device Eval In Person W/DR Completed Analysis,Single,Dual,Mul 04/28/2019 23600 Interrogation Device Eval In Person W/ Completed Analysis,Single,Dual,Mul 03/09/2019 70987 Aspiration &/Or Inj Of Ganglion Cyst(S) Any Location Completed 02/27/2019 43609 Aspiration &/Or Inj Of Ganglion Cyst(S) Any Location Completed Medical Devices Description No Information Available Encounters Type Date Location Provider Dx Diagnosis Office Visit 06/18/2019 [facility] Tawny Mason, I21.3 St elevation 12:00p N.P. (Stemi) myocardial infarction of [facility] I25.10 Athscl heart disease of [place] coronary artery w/o ang pctrs R06.02 Shortness of breath Z98.61 Coronary angioplasty status E11.40 Type 2 diabetes mellitus with diabetic neuropathy, [facility] I48.20 Chronic atrial fibrillation, unspecified Office Visit 06/08/2019 [facility] [address]21[address]3 St elevation 10:21a sarah Tim PA (Stemi) Hospitalists myocardial infarction of [facility] Z79.4 residential (current) use of insulin E11.9 Type 2 diabetes mellitus without complications I48.91 Unspecified atrial fibrillation Office Visit 06/07/2019 4:15p [facility] Sunny Dumont, I25.10 Athscl heart Of [facility] AT [facility], disease of [facility] [place] coronary artery w/o ang pctrs Z98.61 Coronary angioplasty status R53.1 Weakness Office Visit 06/07/2019 [facility] R06.02 Shortness of 10:21a sarah Tim PA breath Hospitalists E11.40 Type 2 diabetes mellitus with diabetic neuropathy, [facility] I48.91 Unspecified atrial fibrillation Office Visit 06/06/2019 4:14p [facility] Sunny Dumont, I25.10 Athscl heart Of [facility] AT [facility], [facility], disease of [facility] [place] coronary artery w/o ang pctrs Z98.61 Coronary angioplasty status R07.9 Chest pain, unspecified R06.02 Shortness of breath Office Visit 06/06/2019 [facility] R06.02 Shortness of 10:21a ,JOSÉ Dailey breath Hospitalists E11.40 Type 2 diabetes mellitus with diabetic neuropathy, [facility] I48.91 Unspecified atrial fibrillation Office Visit 06/05/2019 4:12p [facility] Sunny Dumont, I25.10 Athscl heart Of [facility] AT [facility], FAC, disease of [facility] [place] coronary artery w/o ang pctrs Z98.61 Coronary angioplasty status Office Visit 06/05/2019 [facility] E11.40 Type 2 diabetes 10:20a sarah Tim PA mellitus with Hospitalists diabetic neuropathy, [facility] I48.91 Unspecified atrial fibrillation Office Visit 06/04/2019 [facility] Shreya Darrell, E11.9 Type 2 diabetes 10:20a Assocsarah NP mellitus without Hospitalists complications Office Visit 06/04/2019 [facility] Sunny Dumont, R07.9 Chest pain, 4:34p Of Rn Intensive Care Unit AT [facility], FACC, unspecified FSCAI R94.31 Abnormal electrocardiogram [ECG] [EKG] I25.10 Athscl heart disease of [place] coronary artery w/o ang pctrs Office Visit 06/02/2019 11:30a [facility] Tawny Cazares Z95.0 Presence of Of Jerry Mason, N.PAlyssa cardiac pacemaker R06.02 Shortness of breath I34.0 Nonrheumatic mitral (valve) insufficiency I48.2 Chronic atrial fibrillation Office Visit 05/22/2019 [facility] Roseanna, S93.492A Sprain of other 10:15a Orthopedics at [facility] [place] left ankle, initial encounter Office Visit 05/15/2019 [facility] Tawny Mason, Z95.0 Presence of 10:30a Of Jerry N.P. cardiac pacemaker R06.02 Shortness of breath I34.0 Nonrheumatic mitral (valve) insufficiency I48.2 Chronic atrial fibrillation I95.89 Other hypotension Office Visit 05/12/2019 8:15a Wound Care Aster Zhu E11.622 Type 2 diabetes Center AT [facility] JOSHUA [place] mellitus with other skin ulcer L97.818 Non-prs chronic ulcer oth prt r low leg with oth severity Office Visit 05/12/2019 9:10a [facility] Fior R07.9 Chest pain, Assoc,pc VASYL Contreras unspecified Hospitalists I48.91 Unspecified atrial fibrillation Office Visit 05/12/2019 2:42p [facility] Jesus Landis R06.02 Shortness of Of Jerry Toscano M.D. breath Office Visit 05/11/2019 9:09a [facility] Keiry L97.919 Non-prs chronic Assoc,pc Ree Rivera [facility] unsp prt of Hospitalists PROGRAM CLINICIAN r low leg w unsp severity I48.91 Unspecified atrial fibrillation R06.02 Shortness of breath R07.9 Chest pain, unspecified Office Visit 05/10/2019 2:25p [facility] Jesus Landis R06.02 Shortness of Of Jerry Toscano M.D. breath I34.0 Nonrheumatic mitral (valve) insufficiency Office Visit 05/09/2019 9:08a [facility] Leah R06.02 Shortness of Assoc,sarah Lui NP breath Hospitalists R07.9 Chest pain, unspecified Office Visit 05/08/2019 10:00a [facility] Tawny S. R06.02 Shortness of Of Rn Intensive Care Unit Foster, N.P. breath Z95.0 Presence of cardiac pacemaker I34.0 Nonrheumatic mitral (valve) insufficiency I48.2 Chronic atrial fibrillation Office Visit 05/05/2019 10:00a [facility] Nurse Visit R06.02 Shortness of Of [facility] IC breath Office Visit 05/01/2019 10:30a [facility] L97.811 Non-prs chr at [facility] Condon MD ulcer oth prt r low leg limited to brkdwn skin M67.461 Ganglion, right knee Z89.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 great toe Office Visit 04/24/2019 1:30p [facility] Gin Alvarado, I48.2 Chronic atrial Of [facility] M.D. fibrillation Z95.0 Presence of cardiac pacemaker R06.02 Shortness of breath Office Visit 04/17/2019 2:15p [facility] Roseanna Z47.81 Encounter for Orthopedics at orthopedic [place] aftercare following surgical amp Z89.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 great toe M67.461 Ganglion, right knee Assessments Date Code Description Provider 08/17/2019 I25.10 Atherosclerotic heart disease of Gin Alvarado M.D. [place] coronary artery without angina pectoris 08/17/2019 Z01.810 Encounter for preprocedural Gin Alvarado M.D. cardiovascular examination 08/17/2019 I48.21 Permanent atrial fibrillation iGn Alvarado M.D. 08/17/2019 Z95.0 Presence of cardiac pacemaker Gin Alvarado M.D. 08/17/2019 I25.5 Ischemic cardiomyopathy Gin Alvarado M.D. 08/17/2019 I10 Essential (primary) hypertension Gin Alvarado M.D. 08/17/2019 I44.2 Atrioventricular block, complete Gin Alvarado M.D. 08/17/2019 E11.8 Type 2 diabetes mellitus with Gin Alvarado M.D. unspecified complications 08/17/2019 E78.5 Hyperlipidemia, unspecified Gin Alvarado M.D. 08/03/2019 M20.42 Other hammer toe(s) (acquired), left Jemal Condon MD foot 08/03/2019 S92.425A Nondisplaced fracture of distal Jemal Condon MD phalanx of left great toe, initial encounter for closed fracture 08/03/2019 E11.40 Type 2 diabetes mellitus with Jemal Condon MD diabetic neuropathy, unspecified 07/20/[address] elevation (Stemi) myocardial Gin Alvarado M.D. infarction of unspecified site 07/20/[address] elevation (Stemi) myocardial Ica ECHO Schedule infarction of unspecified site 06/18/2019 I48.91 Unspecified atrial fibrillation Zaynab Lindsay M.D. 06/18/[address] elevation (Stemi) myocardial Tawny Mason, N.P. 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 [place] coronary artery without angina pectoris 06/18/2019 R06.02 Shortness of breath Tawny Mason, N.P. 06/18/2019 Z98.61 Coronary angioplasty status Tawny Mason, N.P. 06/18/2019 E11.40 Type 2 diabetes mellitus with Tawny Mason, N.P. diabetic neuropathy, unspecified 06/18/2019 I48.20 Chronic atrial fibrillation, Tawny Mason, N.P. unspecified 06/08/[address] elevation (Stemi) myocardial JOSÉ Rodriguez infarction of unspecified site 06/08/2019 Z79.4 residential (current) use of insulin JOSÉ Rodriguez 06/08/2019 E11.9 Type 2 diabetes mellitus without JOSÉ Rodriguez complications 06/08/2019 I48.91 Unspecified atrial fibrillation JOSÉ Rodriguez 06/07/2019 R94.31 Abnormal electrocardiogram [ECG] Zaynab Lindsay M.D. [EKG] 06/07/2019 I25.10 Atherosclerotic heart disease of Sunny Dumont M.D., [facility], [place] coronary artery without FSCAI angina pectoris 06/07/2019 R06.02 Shortness of breath JOSÉ Rodriguez 06/07/2019 Z98.61 Coronary angioplasty status Sunny Dumont M.D., [facility], [facility] 06/07/2019 E11.40 Type 2 diabetes mellitus with JOSÉ Rodriguez diabetic neuropathy, unspecified 06/07/2019 R53.1 Weakness Sunny Dumont M.D., [facility], [facility] 06/07/2019 I48.91 Unspecified atrial fibrillation JOSÉ Rodriguez 06/06/2019 R94.31 Abnormal electrocardiogram [ECG] Zaynab Lindsay M.D. [EKG] 06/06/2019 I25.10 Atherosclerotic heart disease of Sunny Dumont M.D., [facility], [place] coronary artery without [facility] angina pectoris 06/06/2019 Z98.61 Coronary angioplasty status Sunny Dumont M.D., [facility], [facility] 06/06/2019 R07.9 Chest pain, unspecified Sunny Dumont M.D., [facility], [facility] 06/06/2019 R06.02 Shortness of breath JOSÉ Rodriguez 06/06/2019 R06.02 Shortness of breath Sunny Dumont M.D., [facility], [facility] 06/06/2019 E11.40 Type 2 diabetes mellitus with JOSÉ Rodriguez diabetic neuropathy, unspecified 06/06/2019 I48.91 Unspecified atrial fibrillation JOSÉ Rodriguez 06/05/2019 I25.10 Atherosclerotic heart disease of Sunny Dumont M.D., [facility], [place] coronary artery without [facility] angina pectoris 06/05/2019 Z98.61 Coronary angioplasty status Sunny Dumont M.D., [facility], [facility] 06/05/2019 E11.40 Type 2 diabetes mellitus with JOSÉ Rodriguez diabetic neuropathy, unspecified 06/05/2019 I48.91 Unspecified atrial fibrillation JOSÉ Rodriguez 06/04/2019 I21.9 Acute myocardial infarction, Zaynab Lindsay M.D. unspecified 06/04/2019 R07.9 Chest pain, unspecified Sunny Dumont M.D., [facility], [facility] 06/04/2019 R94.31 Abnormal electrocardiogram [ECG] Sunny Dumont M.D., [facility], [EKG] [facility] 06/04/2019 I25.10 Atherosclerotic heart disease of Sunny Dumont M.D., [facility], [place] coronary artery without [facility] angina pectoris 06/04/2019 E11.9 Type 2 diabetes mellitus without Srheya Darrell, PROGRAM CLINICIAN complications 06/02/2019 Z95.0 Presence of cardiac pacemaker Tawny S. Foster, N.P. 06/02/2019 R06.02 Shortness of breath Tawny S. Foster, N.P. 06/02/2019 I34.0 Nonrheumatic mitral (valve) Tawny S. Foster, N.P. insufficiency 06/02/2019 I48.2 Chronic atrial fibrillation Tawny S. Foster, N.P. 05/22/2019 S93.492A Sprain of other ligament of left Jemal MD [place] ankle, initial encounter 05/15/2019 Z95.0 Presence of cardiac pacemaker Tawny S. Foster, N.P. 05/15/2019 R06.02 Shortness of breath Tawny S. Foster, N.P. 05/15/2019 I34.0 Nonrheumatic mitral (valve) Tawny S. Foster, N.P. insufficiency 05/15/2019 I48.2 Chronic atrial fibrillation Tawny S. Foster, N.P. 05/15/2019 I95.89 Other hypotension Tawny S. Foster, N.P. 05/14/2019 I34.0 Nonrheumatic mitral (valve) Gin Alvarado M.D. insufficiency 05/12/2019 R06.02 Shortness of breath Jesus Toscano M.D. 05/12/2019 E11.622 Type 2 diabetes mellitus with other Aster [place] NP skin ulcer 05/12/2019 L97.818 Non-pressure chronic ulcer of other Aster [place] NP part of right lower leg with other specified severity 05/12/2019 R06.02 Shortness of breath Devin Ram MD, [facility], FSCAI 05/12/2019 R07.9 Chest pain, unspecified JOSÉ Segundo-C 05/12/2019 I48.91 Unspecified atrial fibrillation Fior Contreras PA-C 05/11/2019 L97.919 Non-pressure chronic ulcer of Keiry Rivera, PROGRAM CLINICIAN unspecified part of right lower leg with unspecified severity 05/11/2019 I48.91 Unspecified atrial fibrillation Keiry Rivera, PROGRAM CLINICIAN 05/11/2019 R06.02 Shortness of breath Keiry Rivera, PROGRAM CLINICIAN 05/11/2019 R07.9 Chest pain, unspecified Keiry Rivera, PROGRAM CLINICIAN 05/10/2019 R94.31 Abnormal electrocardiogram [ECG] Jesus Toscano M.D. [EKG] 05/10/2019 R06.02 Shortness of breath Jesus Toscano M.D. 05/10/2019 I34.0 Nonrheumatic mitral (valve) Jesus Toscano M.D. insufficiency 05/10/2019 R06.02 Shortness of breath Lois Recio, PA 05/10/2019 R07.9 Chest pain, unspecified Lois Recio, PA 05/09/2019 R06.02 Shortness of breath Leah Lui, PROGRAM CLINICIAN 05/09/2019 R07.9 Chest pain, unspecified Leah Sania, PROGRAM CLINICIAN 05/08/2019 R06.02 Shortness of breath Tawny Mason [...] right great toe Jemal Condon MD 04/17/2019 Ji Hong, right knee Jemal Condon MD 04/03/2019 Z47.81 Encounter for orthopedic aftercare Jemal Condon MD following surgical amputation 04/03/2019 Z89.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 great espinoza Condon MD 04/03/2019 M6Juan Carlos461 Gely, right knee Jemal Condon MD 03/24/2019 Z89.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 great toe Lupe Rey RPA-C 03/24/2019 Z47.81 Encounter for orthopedic aftercare SAVAGE Izquierdo following surgical amputa 03/24/2019 M6Juan Carlos461 Ganglion, right knee Lupe Rey RPA-C 03/09/2019 Z47.81 Encounter for orthopedic aftercare Jemal Condon MD following surgical amp 03/09/2019 Z89.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 great espinoza Condon MD 03/09/2019 M6Dana.461 Gely, right knee Jemal Condon MD 03/04/2019 Z47.81 Encounter for orthopedic aftercare Jemal Condon MD following surgical amp 03/04/2019 Z89.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 great espinoza Condon MD 03/04/2019 M6Dana.461 Ganglion, right knee Jemal Condon MD 02/27/2019 M67.461 Ganglion, right knee Lupe Rey RPA-C 02/27/2019 Z89.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 great toe Lupe Rey RPAFern 02/27/2019 Z47.81 Encounter for orthopedic aftercare SAVAGE Izquierdo following surgical amputa 02/18/2019 M67.461 Ganglion, right knee Jemal Condon MD 02/18/2019 Z89.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 great toe Jemal Condon MD 02/18/2019 Z47.81 Encounter for orthopedic aftercare Jemal Condon MD following surgical amputa Plan of Treatment Future Appointment(s):08/25/2019 11:30 am - SAVAGE Izquierdo at [facility] at Eeatfh9908/25/2019 11:30 am - Jemal Condon MD at [facility] at [place]7209/07/2019 11:15 am - Jemal Condon MD at [facility] at [place]6608/17/2019 - Gin Alvarado M.D.I25.10 Atherosclerotic heart disease of [place] coronary artery without angina pectorisComments:You have to stay on the Plavix (Clopidogrel) at least 6 months to take off for surgery, ideally for a year (to prevent clot building up in the stent).Z01.810 Encounter for preprocedural cardiovascular examinationComments:If surgery can be done on Plavix, OK to proceed w/o additional cardiac testing.OK to hold Eliquis 2-3 days prior, resume after surgery.I48.21 Permanent atrial fibrillationFollow up:Pacer check 3-4 months, OV to follow, thanks,Z95.0 Presence of cardiac pacemakerComments:Your pacemaker is working well. You use it all the time.I25.5 Ischemic cardiomyopathyComments:Small area of damage from the heart attack on echo.I10 Essential (primary) hypertensionComments:Well controlled on Metoprolol, isosorbide, diuretics.I44.2 Atrioventricular block, pudthktcX52.8 Type 2 diabetes mellitus with unspecified vpqxrqncskmxgV85.5 Hyperlipidemia, unspecifiedComments:Well controlled on Atorvastatin 80 mg Functional Status Description No Information Available Mental Status Description No Information Available Referrals Description No Information Available
--- OUTSIDE RECORDS SUMMARY | 2019-09-16 11:44 | XMS REPORT | Continuity of Care Document ---
:1955 External Reference #:[id number] Author Name Jemal Condon MD (transmitted by agent of provider Cheyanne Ren) Address [address] [place] [address] Care Team Providers Name Role Phone Long Calderón MD - Family Medicine Care Team Information Cardiac Nurse Practitioner [phone] Problems Active Problems Provider Date Granulomatosis with [...] of foot Jemal Condon MD Onset: 08/03/2019 Social History Type Date Description Comments Sex Unknown Tobacco Use Start: Unknown Never Smoked Cigarettes Smoking Status Reviewed: 08/03/19 Never Smoked Cigarettes ETOH Use Denies alcohol [...] mouth 90tabs Gin Alvarado, 06/17/2019 every day M.D. 75mg Tablets Atorvastatin Calcium 1 by mouth 90tabs Tawny Mason, 06/17/2019 every day N.P. 80mg Tablets Torsemide 2 by mouth 180tabs Gin Alvarado, 05/05/2019 20mg Tablets every day M.D. Spironolactone 1 tab by mouth 90tabs Gin Alvarado, 04/29/2019 25mg every day M.D. Tablets Medihoney Wound/Burn use daily on 1.5ounces Jemal Condon, 02/27/2019 Dressing wound Gel Prednisone take 5 mg daily 1000tabs M31.30 Lennox Roblerodor, 02/25/2018 1mg Tablets or as directed M.D. Compression Stockings please use 2units Lennox Roblerodor, 02/25/2018 daily as needed M.D. Misc for leg/foot swelling Keflex 1 tab by mouth Unknown 500mg Capsules three times a day x 5 days Eliquis 1 by mouth 90tabs Gin Jenny, 5mg Tablets twice a day M.D. Metoprolol Succinate 1/2 by mouth 45tabs Gin Jenny, ER every day M.D. 25mg Tablets ER 24HR Isosorbide Dinitrate 1/2 by mouth 45tabs Gin Jenny, every day M.D. 30mg Tablets Humalin Kwik [...] day 04/23/2019 Keflex 1 tab by mouth kenny Condon MD 02/19/2019 - 500mg Capsules four times a day 03/03/2019 Immunizations Description No Information Available Vital Signs Date Vital Result Comment 08/03/2019 1:36pm Height 67 inches 5'7" Weight 215.00 lb Heart Rate 72 /min BP Systolic 100 mmHg BP Diastolic 72 mmHg Respiratory Rate 18 /min Body Temperature 98.1 F Pain Level 1 BMI (Body Mass Index) 33.7 kg/m2 06/18/2019 11:42am Height 67 inches 5'7" Weight 217.38 lb w/ shoes Heart Rate 66 /min R. radial, regular BP Systolic Sitting 100 mmHg LA, lg cuff BP Diastolic Sitting 72 mmHg LA, lg cuff BP Systolic Standing 100 mmHg LA, lg cuff BP Diastolic Standing 80 mmHg LA, lg cuff BMI (Body Mass Index) 34.0 kg/m2 Ejection Fraction 50-55% 06/04/19 Results Test Acquired Date Facility Test Result H/L Range Note Basic Metabolic 06/16/2019 [facility] Sodium 138 mmol/L Normal 135-[address] [place] [address] [phone] Potassium 4.7 mmol/L Normal 3.5-5.0 Chloride 98 mmol/L Low 101-111 Co2 Carbon Dioxide 32 mmol/L Normal 22-32 Anion Gap 8 mmol/L Normal 2-11 Glucose 172 mg/dL High 70-100 Blood Urea Nitrogen 37 mg/dL High 6-24 Creatinine 1.03 mg/dL High 0.51-0.95 BUN/Creatinine Ratio 35.9 High 8-20 Calcium 9.8 mg/dL Normal 8.6-10.3 Egfr Non- 53.9 >60 Egfr 65.3 >60 1 Laboratory test 05/08/2019 [facility] B-Type 71 pg/mL <=[address] [place] [address] Peptide BNP [phone] Basic Metabolic 05/08/2019 [facility] Sodium 136 Normal 135- [address] mmol/[place] [address] [phone] Potassium 4.6 mmol/L Normal 3.5-5.0 Chloride 95 mmol/L Low 101-111 Co2 Carbon Dioxide 29 mmol/L Normal 22-32 Anion Gap 12 mmol/L High 2-11 Glucose 328 mg/dL High 70-100 Blood Urea Nitrogen 43 mg/dL High 6-24 Creatinine 1.20 mg/dL High 0.51-0.95 BUN/Creatinine Ratio 35.8 High 8-20 Calcium 9.8 mg/dL Normal 8.6-10.3 Egfr Non- 45.2 >60 Egfr 54.7 >60 2 CBC Auto 05/08/2019 [facility] White Blood 8.6 10^3/uL Normal 3.5-10.[address] [place] [address] [phone] Red Blood Count 5.19 10^6/uL High 3.70-4.87 [...] Nucleated Red Blood Cells % 0.1 1 Because ethnic data is not always [...] (or dialysis) Procedures Date Code Description Status 07/20/2019 26675 ECHO Transthoracic, Real-Time 2D With Doppler And Color Completed Flow 06/18/2019 80306 EKG Tracing & Interpretation Completed 06/07/2019 30369 EKG, Interpretation Only Completed 06/06/2019 18337 EKG, Interpretation Only Completed 06/04/2019 30444 Cath PLMT&NJX L Ventriculog Img S&I Completed 06/04/2019 98711 ECHO Transthorasic Realtime 2D W Doppler & Color Flow Hosp Completed 06/04/2019 77791 Percutaneous Transcatheter Placement Of Intracoronary Completed Stent 05/14/2019 55516 Echocardiography, Transesophageal, Real Time W/Image 2D Completed W/W/O M-M 05/14/2019 70531 Pulse Wave/Continuous-Interp.RPT Completed 05/14/2019 33141 Color Flow Doppler/Interp & Reprt Completed 05/14/2019 29974 Moderate Sedation Services; Same Phys Intl 15 Mins; PT >= Completed 5 Years 05/12/2019 55889 Treadmill Interp/Report Only Completed 05/12/2019 48241 Stress Test Supervsn W/Out I/R Completed 05/10/2019 26504 EKG, Interpretation Only Completed 04/28/2019 40038 ECHO Transthoracic, Real-Time 2D With Doppler And Color Completed Flow 04/28/2019 86768 ECHO Transthoracic, Real-Time 2D With Doppler And Color Completed Flow 04/28/2019 50881 Interrogation Device Eval In Person W/DR Completed Analysis,Single,Dual,Mul 04/28/2019 63177 Interrogation Device Eval In Person W/DR Completed Analysis,Single,Dual,Mul 03/09/201946628 Aspiration &/Or Inj Of Ganglion Cyst(S) Any Location Completed 02/27/201989012 Aspiration &/Or Inj Of Ganglion Cyst(S) Any Location Completed Medical Devices Description No Information Available Encounters Type Date Location Provider Dx Diagnosis Office Visit 06/18/2019 [facility] Tawny Mason, I21.3 St elevation 12:00p N.P. 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 I21.3 St elevation 10:21a sarah Tim PA (Stemi) Hospitalists myocardial infarction of [facility] site Z79.4 care home (current) use of insulin E11.9 Type 2 diabetes mellitus without complications I48.91 Unspecified atrial fibrillation Office Visit 06/07/2019 4:15p [facility] Sunny Dumont, I25.10 Athscl heart Of [facility], disease of [facility] [place] coronary artery w/o ang pctrs Z98.61 Coronary angioplasty status R53.1 Weakness Office Visit 06/07/2019 [facility] R06.02 Shortness of 10:21a Asssarah vidal PA breath Hospitalists E11.40 Type 2 diabetes mellitus with diabetic neuropathy, [facility] I48.91 Unspecified atrial fibrillation Office Visit 06/06/2019 4:14p [facility] Sunny Dumont, I25.10 Athscl heart Of [facility], disease of [facility] [place] coronary artery w/o ang pctrs Z98.61 Coronary angioplasty status R07.9 Chest pain, unspecified R06.02 Shortness of breath Office Visit 06/06/2019 [facility] R06.02 Shortness of 10:21a Assocsarah PA breath Hospitalists E11.40 Type 2 diabetes mellitus with diabetic neuropathy, unsp I48.91 Unspecified atrial fibrillation Office Visit 06/05/2019 4:12p [facility] Sunny Dumont, I25.10 Athscl heart Of [facility] AT [facility], [facility], disease of [facility] [place] coronary artery w/o ang pctrs Z98.61 Coronary angioplasty status Office Visit 06/05/2019 [facility] Lois E11.40 Type 2 diabetes 10:20a Assoc,pc JOSÉ Recio mellitus with Hospitalists diabetic neuropathy, unsp I48.91 Unspecified atrial fibrillation Office Visit 06/04/2019 [facility] Shreya Darrell, E11.9 Type 2 diabetes 10:20a Assoc,sarah TECHNICAL SERVICES ANALYST mellitus without Hospitalists complications Office Visit 06/04/2019 [facility] Sunny Dumont, R07.9 Chest pain, 4:34p Of Construction Helper AT [facility], [facility], unspecified FSCAI R94.31 Abnormal electrocardiogram [ECG] [EKG] I25.10 Athscl heart disease [place] coronary artery w/o ang pctrs Office Visit 06/02/2019 11:30a [facility] Tawny Cazares Z95.0 Presence of Of Jerry Mason N.Stan cardiac pacemaker R06.02 Shortness of breath I34.0 Nonrheumatic mitral (valve) insufficiency I48.2 Chronic atrial fibrillation Office Visit 05/22/2019 [facility] Roseanna, S93.492A Sprain of other 10:15a Orthopedics at MD farrar of [facility] left ankle, initial encounter Office Visit 05/15/2019 [facility] Tawny Mason, Z95.0 Presence of 10:30a Of [facility] N.P. cardiac pacemaker R06.02 Shortness of breath I34.0 Nonrheumatic mitral (valve) insufficiency I48.2 Chronic atrial fibrillation I95.89 Other hypotension Office Visit 05/12/2019 8:15a Wound Care Aster Zhu E11.622 Type 2 diabetes Center AT [facility] JOSHUA [place] mellitus with other skin ulcer L97.818 Non-prs chronic ulcer oth prt r low leg with oth severity Office Visit 05/12/2019 9:10a [facility] Fior R07.9 Chest pain, Assoc,pc VASYL Contreras unspecified Hospitalists I48.91 Unspecified atrial fibrillation Office Visit 05/12/2019 2:42p [facility] Jesus Landis R06.02 Shortness of Of Jerry Toscano M.D. breath Office Visit 05/11/2019 9:09a [facility] Keiry L97.919 Non-prs chronic Assoc,pc Ree Rivera, [facility] unsp prt of Hospitalists TECHNICAL SERVICES ANALYST r low leg w unsp severity I48.91 Unspecified atrial fibrillation R06.02 Shortness of breath R07.9 Chest pain, unspecified Office Visit 05/10/2019 2:25p [facility] Jesus Landis R06.02 Shortness of Of Jerry Toscano M.D. breath I34.0 Nonrheumatic mitral (valve) insufficiency Office Visit 05/09/2019 9:08a [facility] Leah R06.02 Shortness of Assoc,sarah Lui, TECHNICAL SERVICES ANALYST breath Hospitalists R07.9 Chest pain, unspecified Office Visit 05/08/2019 10:00a [facility] Tawny SAlyssa R06.02 Shortness of Of Construction Helper Foster, N.P. breath Z95.0 Presence of cardiac pacemaker I34.0 Nonrheumatic mitral (valve) insufficiency I48.2 Chronic atrial fibrillation Office Visit 05/05/2019 10:00a [facility] Nurse Visit R06.02 Shortness of Of Construction Helper IC breath Office Visit 05/01/2019 10:30a [facility] [place] L97.811 Non-prs chr at [facility] MD Roseanna ulcer oth prt r low leg limited to brkdwn skin M67.461 Ganglion, right knee Z89.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 great toe Office Visit 04/24/2019 1:30p [facility] Gin Alvarado, I48.2 Chronic atrial Of Construction Helper M.DAlyssa fibrillation Z95.0 Presence of cardiac pacemaker R06.02 Shortness of breath Office Visit 04/17/2019 2:15p [facility] Roseanna Z47.81 Encounter for Orthopedics at orthopedic [facility] aftercare following surgical amp Z89.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 great toe M67.461 Ganglion, right knee Assessments Date Code Description Provider 08/03/2019 M20.42 Other hammer toe(s) (acquired), left Jemal Condon MD foot 08/03/2019 S92.425A Nondisplaced fracture of distal Jemal Condon MD phalanx of left great toe, initial encounter for closed fracture 08/03/2019 E11.40 Type 2 diabetes mellitus with Jemal Condon MD diabetic neuropathy, unspecified 07/20/[address] elevation (Stemi) myocardial Ica ECHO Schedule infarction of unspecified site 06/18/2019 I48.91 Unspecified atrial fibrillation Zaynab Lindsay M.D. 06/18/[address] elevation (Stemi) myocardial Tawny SAlyssa Mason, N.P. 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 06/18/2019 Z98.61 Coronary angioplasty status Tawny Mason, N.P. 06/18/2019 E11.40 Type 2 diabetes mellitus with Tawny Msaon, N.P. diabetic neuropathy, unspecified 06/18/2019 I48.20 Chronic atrial fibrillation, Tawny Mason, N.P. unspecified 06/08/[address] elevation (Stemi) myocardial JOSÉ Rodriguez infarction of unspecified site 06/08/2019 Z79.4 care home (current) use of insulin JOSÉ Rodriguez 06/08/2019 E11.9 Type 2 diabetes mellitus without JOSÉ Rodriguez complications 06/08/2019 I48.91 Unspecified atrial fibrillation JOSÉ Rodriguez 06/07/2019 R94.31 Abnormal electrocardiogram [ECG] Zaynab Lindsay M.D. [EKG] 06/07/2019 I25.10 Atherosclerotic heart disease of Sunny Dumont M.D., [facility], [place] coronary artery without [facility] angina pectoris 06/07/2019 R06.02 Shortness of breath JOSÉ Rodriguez 06/07/2019 Z98.61 Coronary angioplasty status Sunny Dumont M.D., [facility], [facility] 06/07/2019 E11.40 Type 2 diabetes mellitus with JOSÉ Rodriguez diabetic neuropathy, unspecified 06/07/2019 R53.1 Weakness Sunny Dumont M.D., [facility], [facility] 06/07/2019 I48.91 Unspecified atrial fibrillation JOSÉ Rodriguez 06/06/2019 R94.31 Abnormal electrocardiogram [ECG] Zaynab Lindsay M.D. [EKG] 06/06/2019 I25.10 Atherosclerotic heart disease of Sunny Dumont M.D., [facility], [place] coronary artery without [facility] angina pectoris 06/06/2019 Z98.61 Coronary angioplasty status Sunny Dumont M.D., [facility], [facility] 06/06/2019 R07.9 Chest pain, unspecified Sunny Dumont M.D., [facility], [facility] 06/06/2019 R06.02 Shortness of breath JOSÉ Rodriguez 06/06/2019 R06.02 Shortness of breath Sunny Dumont M.D., [facility], [facility] 06/06/2019 E11.40 Type 2 diabetes mellitus with JOSÉ Rodriguez diabetic neuropathy, unspecified 06/06/2019 I48.91 Unspecified atrial fibrillation JOSÉ Rodriguez 06/05/2019 I25.10 Atherosclerotic heart disease of Sunny Dumont M.D., [facility], [place] coronary artery without [facility] angina pectoris 06/05/2019 Z98.61 Coronary angioplasty status Sunny Dumont M.D., [facility], [facility] 06/05/2019 E11.40 Type 2 diabetes mellitus with JOSÉ Rodriguez diabetic neuropathy, unspecified 06/05/2019 I48.91 Unspecified atrial fibrillation JOSÉ Rodriguez 06/04/2019 I21.9 Acute myocardial infarction, Zaynab Lindsay M.D. unspecified 06/04/2019 R07.9 Chest pain, unspecified Sunny Dumont M.D., [facility], [facility] 06/04/2019 R94.31 Abnormal electrocardiogram [ECG] Sunny Dumont M.D., [facility], [EKG] [facility] 06/04/2019 I25.10 Atherosclerotic heart disease of Sunny Dumont M.D., [facility], [place] coronary artery without [facility] angina pectoris 06/04/2019 E11.9 Type 2 diabetes mellitus without Shreya Darrell, TECHNICAL SERVICES ANALYST complications 06/02/2019 Z95.0 Presence of cardiac pacemaker [...] R06.02 Shortness of breath Devin Ram MD, [facility], FSCAI 05/12/2019 R07.9 Chest pain, unspecified Fior Contreras PA-C 05/12/2019 I48.91 Unspecified atrial fibrillation Fior Contreras PA-C 05/11/2019 L97.919 Non-pressure chronic ulcer of [place] Ree Rivera, TECHNICAL SERVICES ANALYST unspecified part of right lower leg with unspecified severity 05/11/2019 I48.91 Unspecified atrial fibrillation Keiry Rivera, TECHNICAL SERVICES ANALYST 05/11/2019 R06.02 Shortness of breath Keiry Rivera, TECHNICAL SERVICES ANALYST 05/11/2019 R07.9 Chest pain, unspecified Keiry Rivera, TECHNICAL SERVICES ANALYST 05/10/2019 R94.31 Abnormal electrocardiogram [ECG] Jesus Toscano M.D. [EKG] 05/10/2019 R06.02 Shortness of breath Jesus Toscano M.D. 05/10/2019 I34.0 Nonrheumatic mitral (valve) Jesus Toscano M.D. insufficiency 05/10/2019 R06.02 Shortness of breath Lois Recio, PA 05/10/2019 R07.9 Chest pain, unspecified Lois Recio, PA 05/09/2019 R06.02 Shortness of breath Leah Lui, TECHNICAL SERVICES ANALYST 05/09/2019 R07.9 Chest pain, unspecified Leah Sania, TECHNICAL SERVICES ANALYST 05/08/2019 R06.02 Shortness of breath Tawny Mason, [...] right great toe Jemal Condon MD 04/17/2019 [place]46Suzanne Hong, right knee Jemal Condon MD 04/03/2019 Z47.81 Encounter for orthopedic aftercare Jemal Condon MD following surgical amputation 04/03/2019 Z89.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 great espinoza Condon MD 04/03/2019 Ji Hong, right anusha Condon MD 03/24/2019 Z89.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 great toe Lupe Krissy RPA-C 03/24/2019 Z47.81 Encounter for orthopedic aftercare Lupe Rey RPA-C following surgical amputa 03/24/2019 M6Juan Carlos461 Ganglion, right knee Lupe Krissy, RPA-C 03/09/2019 Z47.81 Encounter for orthopedic aftercare Jemal Condon MD following surgical amp 03/09/2019 Z89.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 great espinoza Condon MD 03/09/2019 Ji Hong, right anusha Condon MD 03/04/2019 Z47.81 Encounter for orthopedic aftercare Jemal Condon MD following surgical amp 03/04/2019 Z89.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 great espinoza Condon MD 03/04/2019 M6Juan Carlos461 Gely, right knee Jemal Condon MD 02/27/2019 Rachna.461 Ganglion, right knee Lupe Krissy RPA-C 02/27/2019 Z89.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 great toe Lupe Krissy, RPA-C 02/27/2019 Z47.81 Encounter for orthopedic aftercare Lupe Rey RPA-C following surgical amputa 02/18/2019 M6Juan Carlos46Suzanne Ganglion, right knee Jemal Condon MD 02/18/2019 Z89.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 great toe Jemal Condon MD 02/18/2019 Z47.81 Encounter for orthopedic aftercare Jemal Condon MD following surgical amputa 02/13/2019 M67.461 Ganglion, right knee Lupe Janefred RPA-C 02/13/2019 Z89.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 great toe Lupe Rey RPA-C 02/13/2019 Z47.81 Encounter for orthopedic aftercare Lupe Rey RPA-C following surgical amputa 02/06/2019 M67.461 Ganglion, right knee Jemal Condon MD 02/06/2019 Z89.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 great toe Jemal Condon MD 02/06/2019 Z47.81 Encounter for orthopedic aftercare Jemal Condon MD following surgical amp Plan of Treatment Future Appointment(s):09/07/2019 11:15 am - Jemal Condon MD at [facility] at [facility]2008/17/2019 1:00 pm - Ica Pacer Schedule at [facility]08/17/2019 2:10 pm - Gin Alvarado M.D. at [facility]08/03/2019 - Jemal Condon MDM20.42 Other hammer toe(s) (acquired), left footFollow up:Follow Up: 1 week jshwrcV41.425A Nondisplaced fracture of distal phalanx of left great toe, initial encounter for closed imdhqpkzO93.40 Type 2 diabetes mellitus with diabetic neuropathy, unspecified Functional Status Description No Information Available Mental Status Description No Information Available Referrals Description No Information Available
--- OUTSIDE RECORDS SUMMARY | 2019-09-16 11:44 | XMS REPORT | Continuity of Care Document ---
:1955 External Reference #:[id number] Author Name JOSÉ Tanner (transmitted by agent of provider Corrie Miller) Address [address] [facility] [place] [address] Care Team Providers Name Role Phone Iván Calderón MD - Family Medicine Care Team Information Paid Internship [phone] Problems Active Problems Provider Date Granulomatosis with [...] Unknown Never Smoked Cigarettes Smoking Status Reviewed: 09/07/19 Never Smoked Cigarettes ETOH Use Denies alcohol [...] leg/foot swelling Keflex 1 tab by mouth 15caps Jemal Condon, 500mg Capsules three times a MD day x 5 days Eliquis 1 by [...] 500mg Capsules four times a day 04/23/2019 Immunizations Description No Information Available Vital Signs Date Vital Result Comment 09/07/2019 2:05pm Height 67 inches 5'7" Weight 215.00 lb Heart Rate 88 /min BP Systolic 110 mmHg BP Diastolic 66 mmHg Respiratory Rate 16 /min Body Temperature 98.0 F Pain Level 0 BMI (Body Mass Index) 33.7 kg/m2 08/17/2019 1:42pm Height 67 inches 5'7" Weight 216.00 lb with shoes Heart Rate 80 /min BP Systolic Sitting 110 mmHg Lue lg cuff BP Diastolic Sitting 70 mmHg Lue lg cuff BP Systolic Standing 102 mmHg Lue lg cuff BP Diastolic Standing 70 mmHg Lue lg cuff Respiratory Rate 16 /min BMI (Body Mass Index) 33.8 kg/m2 Ejection Fraction 50% date07/20/2019 ECHO Results Test Acquired Date Facility Test Result H/L Range Note Surgical 08/25/2019 [facility] Surgical SEE RESULT [address] [place] [address] [phone] PDFReport SEE IMAGE Laboratory test 08/25/2019 [facility] Point of 186 mg/dL High 70-100 [address] [place] [address] [phone] Lipid Panel - 08/03/2019 [facility] Creatine 59 U/L Normal 10- 223 3, [address] Kinase(CK) [place] [address] [phone] Comp Metabolic 08/03/2019 [facility] Sodium 141 Normal 135- [address] mmol/L [place], [place] [id number] [phone] Potassium 4.8 mmol/L Normal 3.5-5.0 Chloride 106 [...] Egfr Non- 60.0 >60 Egfr 72.5 >60 5 Lipid Profile 08/03/2019 [facility] Triglycerides 95 mg/dL 6 (Trig/Chol/HDL) [address] [place] [address] [phone] Cholesterol 137 mg/dL 7 HDL Cholesterol 68.2 mg/dL 8 LDL Cholesterol 50 mg/dL 9 Basic Metabolic 06/16/2019 [facility] Sodium 138 mmol/L Normal 135-[address] [place] [address] [phone] Potassium 4.7 mmol/L Normal 3.5-5.0 Chloride 98 mmol/L Low 101-111 Co2 Carbon Dioxide 32 mmol/L Normal 22-32 Anion Gap 8 mmol/L Normal 2-11 Glucose 172 mg/dL High 70-100 Blood Urea Nitrogen 37 mg/dL High 6-24 Creatinine 1.03 mg/dL High 0.51-0.95 BUN/Creatinine Ratio 35.9 High 8-20 Calcium 9.8 mg/dL Normal 8.6-10.3 Egfr Non- 53.9 >60 Egfr 65.3 >60 10 Laboratory test 05/08/2019 [facility] B-Type 71 pg/mL <=[address] [place] [address] Peptide BNP [phone] Basic Metabolic 05/08/2019 [facility] Sodium 136 Normal 135- [address] mmol/[place] [address] [phone] Potassium 4.6 mmol/L Normal 3.5-5.0 Chloride 95 mmol/L Low 101-111 Co2 Carbon Dioxide 29 mmol/L Normal 22-32 Anion Gap 12 mmol/L High 2-11 Glucose 328 mg/dL High 70-100 Blood Urea Nitrogen 43 mg/dL High 6-24 Creatinine 1.20 mg/dL High 0.51-0.95 BUN/Creatinine Ratio 35.8 High 8-20 Calcium 9.8 mg/dL Normal 8.6-10.3 Egfr Non- 45.2 >60 Egfr 54.7 >60 11 CBC Auto 05/08/2019 [facility] White Blood 8.6 10^3/uL Normal 3.5-10.[address] [place] [address] [phone] Red Blood Count 5.19 10^6/uL High 3.70-4.87 [...] Nucleated Red Blood Cells % 0.1 1 SEE RESULT BELOW Name: AYANNA MOHAMUD : [address]: Jemal Condon MD Acct: [id number] Unit: [id number] AGE: 64 Location: OR Re08/25/19 SEX: F Status: JE LEY SPEC: [id number] [place]: 08/25/19- [facility] DR: Jemal Condon MD REQ: [id number] RECD: 08/25/19 STATUS: SOUT _ ORDERED: Decal, LEVEL 4 FINAL DIAGNOSIS Left great toe, amputation: -- Cutaneous margins of resection viable. -- Bone with degenerative change. PRE-OPERATIVE DIAGNOSIS Nondisplaced fracture of distal phalanx great toe GROSS DESCRIPTION The specimen is received in formalin labeled, Left Great Toe, and consists of a 2.8 x 2.5 x 1.4 cm amputated digit partially surfaced by a paniagua-yellow irregular jagged unguis. The bone margin is jagged and irregular pink. The dorsal margin is focally crusted paniagua-yellow. The remaining skin is smooth paniagua-white. Received separately in the same container is a 2.4 x 1.3 by up to 0.8 cm paniagua-white to pink irregular bone fragment and a 3.7 by up to 1.2 x 0.3 cm paniagua-white wrinkled focally crusted skin fragment. Chief Minister sections are submitted in cassettes A and B as follows: A-bone following decalcification and B-skin to include inked digit margin. Signed by and Reported on: Briseyda Conley MD 09/01/19 1208 END OF REPORT DEPARTMENT OF PATHOLOGY, [address] [place] [address] Ajit Lamb M.D. Director [facility] # [id number] 2 Adult Ministries Director: [id number] 3 FASTING 6 weeks Copy Result to: IVÁN CALDERÓN ([id number]) 4 FASTING 6 weeks Copy Result to: IVÁN CALDERÓN ([id number]) 5 Because ethnic data is not always [...] 5 Kidney failure <15 (or dialysis) 6 Desirable: <150 Borderline High: 150-199 High: 200-499 Very High: >500 7 Desirable: <200 Borderline High: 200-239 High: >239 8 Low: <40 Desirable: 40-60 High: >60 9 Desirable: <100 Near Optimal: 100-129 Borderline High: 130-159 High: 160-189 Very High: >189 10 Because ethnic data is not always [...] 5 Kidney failure <15 (or dialysis) 11 Because ethnic data is not always [...] (or dialysis) Procedures Date Code Description Status 08/25/2019 95849 Amputation,Toe;Interphalangeal Joint Completed 08/25/2019 02588 Amputation,Toe;Interphalangeal Joint Completed 08/17/2019 00172 Pace Maker Eval W/Iterative Adjment Dual Lead Completed 08/17/2019 72762 Pace Maker Eval W/Iterative Adjment Dual Lead Completed 07/20/2019 56061 ECHO Transthoracic, Real-Time 2D With Doppler And Color Completed Flow 07/20/2019 40530 ECHO Transthoracic, Real-Time 2D With Doppler And Color Completed Flow 06/18/2019 14553 EKG Tracing & Interpretation Completed 06/07/2019 88032 EKG, Interpretation Only Completed 06/06/2019 29473 EKG, Interpretation Only Completed 06/04/2019 02229 Cath PLMT&NJX L Ventriculog Img S&I Completed 06/04/2019 47338 ECHO Transthorasic Realtime 2D W Doppler & Color Flow Hosp Completed 06/04/2019 86224 Percutaneous Transcatheter Placement Of Intracoronary Completed Stent 05/14/2019 45037 Echocardiography, Transesophageal, Real Time W/Image 2D Completed W/W/O M-M 05/14/2019 87633 Pulse Wave/Continuous-Interp.RPT Completed 05/14/2019 99769 Color Flow Doppler/Interp & Reprt Completed 05/14/2019 06574 Moderate Sedation Services; Same Phys Intl 15 Mins; PT >= Completed 5 Years 05/12/2019 04156 Treadmill Interp/Report Only Completed 05/12/2019 23781 Stress Test Supervsn W/Out I/R Completed 05/10/2019 64019 EKG, Interpretation Only Completed 04/28/2019 50882 ECHO Transthoracic, Real-Time 2D With Doppler And Color Completed Flow 04/28/2019 49958 ECHO Transthoracic, Real-Time 2D With Doppler And Color Completed Flow 04/28/2019 49729 Interrogation Device Eval In Person W/DR Completed Analysis,Single,Dual,Mul 04/28/2019 80753 Interrogation Device Eval In Person W/ Completed Analysis,Single,Dual,Mul 03/09/2019 53668 Aspiration &/Or Inj Of Ganglion Cyst(S) Any Location Completed Medical Devices Description No Information Available Encounters Type Date Location Provider Dx Diagnosis Office Visit 08/17/2019 [facility] Gin Alvarado, I25.10 Ath[facility] heart 2:10p Of Jerry Alejandre disease of [place] coronary artery w/o ang pctrs Z01.810 Encounter for preprocedural cardiovascular examination I48.21 Permanent atrial fibrillation Z95.0 Presence of cardiac pacemaker I25.5 Ischemic cardiomyopathy I10 Essential (primary) hypertension I44.2 Atrioventricular block, complete E11.8 Type 2 diabetes mellitus with unspecified complications E78.5 Hyperlipidemia, unspecified M20.42 Other hammer toe(s) (acquired), left foot Office Visit 08/03/2019 [facility] Roseanna, M20.42 Other hammer 1:30p Orthopedics at [place] toe(s) [place] (acquired), left foot S92.425A Nondisp fx of distal phalanx of left great toe, init E11.40 Type 2 diabetes mellitus with diabetic neuropathy, [facility] Office Visit 06/18/2019 12:00p [facility] Tawny Cazares I21.3 St elevation Marlon, N.P. 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, disease of [facility] [place] coronary artery w/o ang pctrs Z98.61 Coronary angioplasty status R53.1 Weakness Office Visit 06/07/2019 [facility] R06.02 Shortness of 10:21a sarah Tim PA breath Hospitalists E11.40 Type 2 diabetes mellitus with diabetic neuropathy, [facility] I48.91 Unspecified atrial fibrillation Office Visit 06/06/2019 4:14p [facility] Sunny Dumont, I25.10 Athscl heart Of [facility], disease of [facility] [place] coronary artery w/o ang pctrs Z98.61 Coronary angioplasty status R07.9 Chest pain, unspecified R06.02 Shortness of breath Office Visit 06/06/2019 [facility] R06.02 Shortness of 10:21a ,JOSÉ Dailey breath Hospitalists E11.40 Type 2 diabetes mellitus with diabetic neuropathy, [facility] I48.91 Unspecified atrial fibrillation Office Visit 06/05/2019 4:12p [facility] Sunny Dumont, I25.10 Athscl heart Of [facility], disease of [facility] [place] coronary artery w/o ang pctrs Z98.61 Coronary angioplasty status Office Visit 06/05/2019 [facility] E11.40 Type 2 diabetes 10:20a sarah Tim PA mellitus with Hospitalists diabetic neuropathy, [facility] I48.91 Unspecified atrial fibrillation Office Visit 06/04/2019 [facility] Shreya Darrell, E11.9 Type 2 diabetes 10:20a Assocsarah NP mellitus without Hospitalists complications Office Visit 06/04/2019 [facility] Sunny Dumont, R07.9 Chest pain, 4:34p Of [facility], FACC, unspecified FSCAI R94.31 Abnormal electrocardiogram [ECG] [EKG] I25.10 Athscl heart disease of [place] coronary artery w/o ang pctrs Office Visit 06/02/2019 11:30a [facility] Tawny Cazares Z95.0 Presence of Of Jerry Mason, N.P. cardiac pacemaker R06.02 Shortness of breath I34.0 Nonrheumatic mitral (valve) insufficiency I48.2 Chronic atrial fibrillation Office Visit 05/22/2019 [facility] Rose[place], S93.492A Sprain of other 10:15a Orthopedics at [facility] farrar of [place] left ankle, initial encounter Office Visit 05/15/2019 [facility] Tawny Mason, Z95.0 Presence of 10:30a Of Greenhouse Grower N.P. cardiac pacemaker R06.02 Shortness of breath I34.0 Nonrheumatic mitral (valve) insufficiency I48.2 Chronic atrial fibrillation I95.89 Other hypotension Office Visit 05/12/2019 2:42p [facility] Jesus Landis R06.02 Shortness of Of Jerry Toscano M.D. breath Office Visit 05/12/2019 9:10a [facility] Fior R07.9 Chest pain, Assoc,pc VASYL Contreras unspecified Hospitalists I48.91 Unspecified atrial fibrillation Office Visit 05/12/2019 8:15a Wound Care Aster Zhu E11.622 Type 2 diabetes [facility] [place]OSHUA [place] mellitus with other skin ulcer L97.818 Non-prs chronic ulcer oth prt r low leg with oth severity Office Visit 05/11/2019 9:09a [facility] Keiry L97.919 Non-prs Assoc,pc Ree Rivera, [facility] Hospitalists [employer] unsp prt of r low leg w unsp severity I48.91 Unspecified atrial fibrillation R06.02 Shortness of breath R07.9 Chest pain, unspecified Office Visit 05/10/2019 2:25p [facility] Jesus Landis R06.02 Shortness of Of Jerry Toscano M.D. breath I34.0 Nonrheumatic mitral (valve) insufficiency Office Visit 05/09/2019 9:08a [facility] Leah R06.02 Shortness of Assoc,sarah Lui NP breath Hospitalists R07.9 Chest pain, unspecified Office Visit 05/08/2019 10:00a [facility] Tawny S. R06.02 Shortness of Of Greenhouse Grower Foster, N.P. breath Z95.0 Presence of cardiac pacemaker I34.0 Nonrheumatic mitral (valve) insufficiency I48.2 Chronic atrial fibrillation Office Visit 05/05/2019 10:00a [facility] Nurse Visit R06.02 Shortness of Of Greenhouse Grower IC breath Office Visit 05/01/2019 10:30a [facility] L97.811 Non-prs chr at Wescologan Condon MD ulcer oth prt r low leg limited to brkdwn skin M67.461 Ganglion, right knee Z89.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 great toe Office Visit 04/24/2019 1:30p [facility] Gin Alvarado I48.2 Chronic atrial Of [facility] M.D. fibrillation Z95.0 Presence of cardiac pacemaker R06.02 Shortness of breath Office Visit 04/17/2019 2:15p [facility] Roseanna, Z47.81 Encounter for Orthopedics at orthopedic [place] aftercare following surgical amp Z89.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 great toe M67.461 Ganglion, right knee Assessments Date Code Description Provider 09/07/2019 S92.425A Nondisplaced fracture of distal Sean Jayla, PA phalanx of left great toe, initial encounter for closed fracture 09/07/2019 M20.42 Other hammer toe(s) (acquired), left Sean Jayla, PA foot 08/25/2019 S92.425A Nondisplaced fracture of distal Lupe Rey RPA-C phalanx of left great toe, initial encounter for closed fracture 08/25/2019 S92.425A Nondisplaced fracture of distal Jemal Condon MD phalanx of left great toe, initial encounter for closed fracture 08/25/2019 M20.42 Other hammer toe(s) (acquired), left Lupe Rey RPA-C foot 08/25/2019 M20.42 Other hammer toe(s) (acquired), left Jemal Condon MD foot 08/17/2019 Z95.0 Presence of cardiac pacemaker Gin Alvarado M.D. 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 cardiovascular examination 08/17/2019 I48.21 Permanent atrial fibrillation Gin Alvarado M.D. 08/17/2019 Z95.0 Presence of cardiac pacemaker Gin Alvarado M.D. 08/17/2019 I25.5 Ischemic cardiomyopathy Gin Alvarado M.D. 08/17/2019 I10 Essential (primary) hypertension Gin Alvarado M.D. 08/17/2019 I44.2 Atrioventricular block, complete Gin Alvarado M.D. 08/17/2019 E11.8 Type 2 diabetes mellitus with Gin Alvarado M.D. unspecified complications 08/17/2019 E78.5 Hyperlipidemia, unspecified Gin Alvarado M.D. 08/17/2019 M20.42 Other hammer toe(s) (acquired), left Gin Alvarado M.D. foot 08/03/2019 M20.42 Other hammer toe(s) (acquired), left [...] 06/18/[address] elevation (Stemi) myocardial Tawny Mason N.PAlyssa infarction of unspecified site 06/18/2019 I25.10 Atherosclerotic heart disease of Tawny Mason N.PAlyssa [place] coronary artery without angina pectoris 06/18/2019 R06.02 Shortness of breath Tawny Mason N.P. 06/18/2019 Z98.61 Coronary angioplasty status Tawny Mason N.P. 06/18/2019 E11.40 Type 2 diabetes mellitus with Tawny Mason, N.P. diabetic neuropathy, unspecified 06/18/2019 I48.20 Chronic atrial fibrillation, Tawny Mason N.P. unspecified 06/08/[address] elevation (Stemi) myocardial JOSÉ Rodriguez infarction of unspecified site 06/08/2019 Z79.4 alf (current) use of insulin JOSÉ Rodriguez 06/08/2019 E11.9 Type 2 diabetes mellitus without JOSÉ Rodriguez complications 06/08/2019 I48.91 Unspecified atrial fibrillation JOSÉ Rodriguez 06/07/2019 R94.31 Abnormal electrocardiogram [ECG] Zaynab Lindsay M.D. [EKG] 06/07/2019 I25.10 Atherosclerotic heart disease of Sunny Dumont M.D., [facility], [place] coronary artery without [facility] angina pectoris 06/07/2019 R06.02 Shortness of breath JOSÉ Rodriguez 06/07/2019 Z98.61 Coronary angioplasty status Sunny Dumont M.D., [facility], [facility] 06/07/2019 E11.40 Type 2 diabetes mellitus with JOSÉ Rodriguez diabetic neuropathy, unspecified 06/07/2019 R53.1 Weakness Sunny Dumont M.D., [facility], [facility] 06/07/2019 I48.91 Unspecified atrial fibrillation JOSÉ Rodriguez 06/06/2019 R94.31 Abnormal electrocardiogram [ECG] Zaynab Lindsay M.D. [EKG] 06/06/2019 I25.10 Atherosclerotic heart disease of Sunny Dumont M.D., [facility], [place] coronary artery [facility] angina pectoris 06/06/2019 Z98.61 Coronary angioplasty status Sunny Dumont M.D., [facility], [facility] 06/06/2019 R07.9 Chest pain, unspecified Sunny Dumont M.D., [facility], [facility] 06/06/2019 R06.02 Shortness of breath JOSÉ Rodriguez 06/06/2019 R06.02 Shortness of breath Sunny Dumont M.D., [facility], [facility] 06/06/2019 E11.40 Type 2 diabetes mellitus with JOSÉ Rodriguez diabetic neuropathy, unspecified 06/06/2019 I48.91 Unspecified atrial fibrillation JOSÉ Rodriguez 06/05/2019 I25.10 Atherosclerotic heart disease of Sunny Dumont M.D., [facility], [place] coronary artery without [facility] angina pectoris 06/05/2019 Z98.61 Coronary angioplasty status Sunny Dumont M.D., [facility], [facility] 06/05/2019 E11.40 Type 2 diabetes mellitus with JOSÉ Rodriguez diabetic neuropathy, unspecified 06/05/2019 I48.91 Unspecified atrial fibrillation JOSÉ Rodriguez 06/04/2019 I21.9 Acute myocardial infarction, Zaynab Lindsay M.D. unspecified 06/04/2019 R07.9 Chest pain, unspecified Sunny Dumont M.D., [facility], [facility] 06/04/2019 R94.31 Abnormal electrocardiogram [ECG] Sunny Dumont M.D., [facility], [EKG] [facility] 06/04/2019 I25.10 Atherosclerotic heart disease of Sunny Dumont M.D., [facility], [place] coronary artery without [facility] angina pectoris 06/04/2019 E11.9 Type 2 diabetes mellitus without Shreya Darrell, [employer] complications 06/02/2019 Z95.0 Presence of cardiac pacemaker [...] E11.622 Type 2 diabetes mellitus with other Astre Santosarlynrenettakwadwoemma [place], [employer] skin ulcer 05/12/2019 L97.818 Non-pressure chronic ulcer of other Aster HermosilloJOSHUA part of right lower leg with other specified severity 05/12/2019 R06.02 Shortness of breath Devin Ram MD, [facility], [facility] 05/12/2019 R07.9 Chest pain, unspecified Fior Contreras PA-C 05/12/2019 I48.91 Unspecified atrial fibrillation Fior Contreras PA-C 05/11/2019 L97.919 Non-pressure chronic ulcer of Keiry Rivera, [employer] unspecified part of right lower leg with unspecified severity 05/11/2019 I48.91 Unspecified atrial fibrillation Keiry Keenan Doto, [employer] 05/11/2019 R06.02 Shortness of breath Keiry Keenan Doto, [employer] 05/11/2019 R07.9 Chest pain, unspecified Keiry Keenan Doto, [employer] 05/10/2019 R94.31 Abnormal electrocardiogram [ECG] Jesus Toscano M.D. [EKG] 05/10/2019 R06.02 Shortness of breath Jesus Toscano M.D. 05/10/2019 I34.0 Nonrheumatic mitral (valve) Jesus Toscano M.D. insufficiency 05/10/2019 R06.02 Shortness of breath JOSÉ Rodriguez 05/10/2019 R07.9 Chest pain, unspecified JOSÉ Rodriguez 05/09/2019 R06.02 Shortness of breath Leah Lui, [employer] 05/09/2019 R07.9 Chest pain, unspecified Leah Lui, [employer] 05/08/2019 R06.02 Shortness of breath Tawny Mason, [...] M67.461 Ganglion, right knee Jemal Condon MD Plan of Treatment Future Appointment(s):09/14/2019 10:30 am - Jemal Condon MD at [facility] at [id number]/07/2019 - Sean Dickerson, PAS92.425A Nondisplaced fracture of distal phalanx of left great toe, initial encounter for closed fractureFollow up:Follow up: [address] Finley20.42 Other hammer toe(s ) (acquired), left foot Functional Status Description No Information Available Mental Status Description No Information Available Referrals Description No Information Available
[2019-09-16 12:38] LABS: ABS Basophils 0.1 10^3/ul (0-0.2); ABS Eosinophils 0.2 10^3/ul (0-0.6); ABS Lymphocytes 3.7 10^3/ul (1.0-4.8); ABS Monocytes 0.9 10^3/ul (0-0.8); ABS Neutrophils 5.3 10^3/ul (1.5-7.7); Eosinophil % 1.8 %; Hematocrit 41 % (35-47); Hemoglobin 13.7 g/dL (12.0-16.0); Mean Corpuscular HGB Conc 33 g/dL (31-36); Mean Corpuscular Hemoglobin 27 pg (27-31); Mean Corpuscular Volume 79 fL (80-97); Mean Platelet Volume 7.5 fL (7.4-10.4); Platelet Count 404 10^3/uL (150-450); Red Blood Count 5.17 10^6 /uL (3.70-4.87); Red Cell Distribution Width 16 % (10-15); White Blood Count 10.1 10^3/uL (3.5-10.8)
[2019-09-16 12:56] LABS: ALT 16 U/L (7-52); AST 23 U/L (13-39); Albumin 3.9 g/dL (3.2-5.2); Alkaline Phosphatase 77 U/L (34-104); Anion Gap 10 mmol/L (2-11); BUN/Creatinine Ratio 17.9 (8-20); Blood Urea Nitrogen 19 mg/dL (6-24); C Reactive Protein 3.39 mg/L (<8.01); CO2 Carbon Dioxide 27 mmol/L (22-32); Chloride 100 mmol/L (101-111); EGFR African American 63.1 (>60); EGFR Non-African American 52.2 (>60); Globulin 4.1 g/dL (2-4); Glucose 159 mg/dL (70-100); Sodium 137 mmol/L (135-145)
[2019-09-16] MEDS ORDERED: Morphine 4 MG/ML VIAL (1 ml) 4 MG/ML VIAL IV ONE (13:05)
[2019-09-16] MEDS ORDERED: Ondansetron INJ* 2 MG/ML VIAL IV ONE (13:06)
[2019-09-16 13:32] LABS: Triglycerides 228 mg/dL
[2019-09-16] MEDS ORDERED: Lidocaine 2% VISCOUS* 15 ML UDC PO ONE (14:21)
[2019-09-16] MEDS ORDERED: Al Hydrox/Mg Hydrox/Simet LIQ* 30 ML UDC PO ONE (14:22)
--- NOTE | 2019-09-16 14:32 | ED ---
Abdominal Pain/Female - HPI Summary HPI Summary: 64-year-old female status post cholecystectomy recently evaluated by her primary care provider 2 days ago for chronic pancreatitis presents to the emergency department today complaining of 8 out of 10 burning right upper quadrant and epigastric pain. Patient states she had a CT scan 2 days ago which showed evidence of chronic pancreatitis as well as a cystic mass on the head of the pancreas. Patient was told to have lifestyle modification and take ibuprofen for pain however she was unable to do this any longer and her primary care physician told her to come to the emergency department for evaluation. Patient currently denies fever, nausea, vomiting, chest pain, blood per rectum, dark stools, recent trauma. Patient states she does not drink alcohol and has not done any recent recreational drugs. Family history and social history noncontributory. - History of Current Complaint Chief Complaint: EDAbdPain Stated Complaint: ABD PAIN Time Seen by Provider: 09/16/19 12:52 Hx Obtained From: Patient Onset/Duration: Gradual Onset Timing: Constant Severity Initially: Severe Severity Currently: Severe Pain Intensity: 8 Pain Scale Used: 0-10 Numeric Location: Discrete At: RUQ, Epigastric Radiates: Yes Radiates to: Back Character: Burning Aggravating Factor(s): Food Associated Signs and Symptoms: Negative: Diaphoresis, Fever, Cough, Chest Pain, Back Pain, Constipation, Blood in Stool, Nausea, Vomiting Allergies/Adverse Reactions: Allergies Allergy/AdvReac Type Severity Reaction Status Date / Time albuterol Allergy Severe Difficulty Verified 09/16/19 11:25 Swallowing latex Allergy Severe TEARS SKIN Verified 09/16/19 11:25 OFF metformin Allergy Severe Diarrhea Verified 09/16/19 11:25 pregabalin [From Lyrica] Allergy Severe Altered Verified 09/16/19 11:25 Mental Status codeine AdvReac Intermediate GI Upset Verified 09/16/19 11:25 hydrocodone AdvReac Intermediate GI Upset Verified 09/16/19 11:25 Sulfa (Sulfonamide AdvReac Intermediate Nausea Verified 09/16/19 11:25 Antibiotics) sulfamethoxazole AdvReac Intermediate Nausea Verified 09/16/19 11:25 [From Bactrim] trimethoprim [From Bactrim] AdvReac Intermediate Nausea Verified 09/16/19 11:25 Home Medications: Home Medications Atorvastatin* [Lipitor 80 MG*] 80 mg PO DAILY 09/16/19 [History Confirmed ] PMH/Surg Hx/FS Hx/Imm Hx Endocrine/Hematology History: Reports: Hx Anticoagulant Therapy, Hx Diabetes Denies: Hx Thyroid Disease Comment Only: Hx Anemia - PT DOES TAKE COUMADIN DAILY, INSTRUCTED TO TAKE PRE -OP Cardiovascular History: Reports: Hx Angina - PACEMAKER, A-FIB, Hx Auto Implanted Cardiovert Defib, Hx Cardiomegaly, Hx Congestive Heart Failure - Hx OF , Hx Coronary Artery Disease, Hx Embolism, Hx Hypercholesterolemia, Hx Hypertension - ON DAILY MEDS, Hx Pacemaker/ICD - put in 2010, new battery 2016 , Hx Peripheral Vascular Disease, Other Cardiovascular Problems/Disorders - FOLLOWED BY DR PARKER Denies: Hx Myocardial Infarction, Hx Valvular Heart Disease Respiratory History: Reports: Hx Pulmonary Edema, Hx Pulmonary Embolism - EARLY , Hx Sleep Apnea - DOES NOT USE CPAP, Other Respiratory Problems/ Disorders - wegeners granulomatosis Denies: Hx Asthma, Hx Chronic Obstructive Pulmonary Disease (COPD) GI History: Reports: Hx Gall Bladder Disease, Hx Gastroesophageal Reflux Disease - ON DAILY MEDS, Other GI Disorders - pantaprazole for protection from blood thinners History: Denies: Hx Renal Disease Musculoskeletal History: Reports: Hx Arthritis - FEET, HANDS, Hx Back Problems, Other Musculoskeletal History - SPINAL STENOSIS Sensory History: Reports: Hx Cataracts - very early signs, Hx Contacts or Glasses - glasses Denies: Hx Hearing Aid, Hx Hearing Problem, Other Sensory Impairments Opthamlomology History: Reports: Hx Cataracts - very early signs, Hx Contacts or Glasses - glasses Denies: Other Sensory Impairments Neurological History: Reports: Hx Nerve Disease - DM neuropathy, Other Neuro Impairments/Disorders - spinal stenosis Psychiatric History: Reports: Hx Anxiety - ON DAILY MEDS, Hx Depression - Cancer History Cancer Type, 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 Hx Chemotherapy: Yes - hx of when developed wegeners disease - Surgical History Surgery Procedure, Year, and Place: CHOLECYSTECTOMY, - 1972. SCAR TISSUE REMOVAL - gallbladder - 3 times, most recent ~1998. tubal ligation - 1978. hysterectomy -1994. pacemaker - 2010,new battery 2016. ankle surgery rt foot - [facility] - ~1974. toe amputated - ~2013, outpt [facility]. right great toe partial amputation and ganglion cyst removal 01/2018 Hx Anesthesia Reactions: No - Immunization History Date of Tetanus Vaccine: 2017 Date of Influenza Vaccine: 07/04/2017 Infectious Disease History: No Infectious Disease History: Reports: Hx Shingles Denies: Hx Clostridium Difficile, Hx Hepatitis, Hx Human Immunodeficiency Virus (HIV), Hx of Known/Suspected MRSA, Hx Tuberculosis, Hx Known/Suspected VRE , Hx Known/Suspected VRSA, History Other Infectious Disease, Traveled Outside the [place] in Last 30 Days - Family History Known Family History: Positive: Diabetes, Non-Contributory - Social History Alcohol Use: None Hx Substance Use: No Substance Use Type: Reports: None Hx Tobacco Use: No Smoking Status (MU): Never Smoked Tobacco Have You Smoked in the Last Year: No Review of Systems Constitutional: Negative Eyes: Negative ENT: Negative Cardiovascular: Negative Respiratory: Negative Positive: Abdominal Pain, Nausea. Negative: Vomiting, Diarrhea Genitourinary: Negative Musculoskeletal: Negative Skin: Negative Neurological: Negative Psychological: Normal All Other Systems Reviewed And Are Negative: Yes Physical Exam - Summary Physical Exam Summary: Patient is in no acute distress. There is no ecchymosis or masses on the abdomen. Negative cullens sign. Negative Ansari Joseph sign. Auscultation reveals normoactive bowel sounds. Palpation reveals mild epigastric tenderness. Negative Rovsing, psoas, McBurney's, Reyes's sign. Triage Information Reviewed: Yes Vital Signs On Initial Exam: Initial Vitals Temp Pulse Resp BP Pulse Ox 97.6 F 84 16 118/92 98 09/16/19 11:20 09/16/19 11:20 09/16/19 11:20 09/16/19 11:20 09/16/19 11:20 Vital Signs Reviewed: Yes Appearance: Positive: Well-Appearing, No Pain Distress, Well-Nourished Skin: Positive: Warm, Skin Color Reflects Adequate Perfusion Eyes: Positive: EOMI, ASIM ENT: Positive: Hearing grossly normal Respiratory/Lung Sounds: Positive: Clear to Auscultation, Breath Sounds Present Cardiovascular: Positive: RRR, S1, S2 Abdomen Description: Positive: Soft. Negative: Distended, Guarding, McBurney's Point Tenderness Bowel Sounds: Positive: Present Musculoskeletal: Positive: Strength/ROM Intact Neurological: Positive: Sensory/Motor Intact, Alert, Oriented to Person Place, Time, Normal Gait, Facial Symmetry, Speech Normal Psychiatric: Positive: Normal, Affect/Mood Appropriate AVPU Assessment: Alert Procedures - Sedation Patient Received Moderate/Deep Sedation with Procedure: No Diagnostics - Vital Signs Vital Signs Temp Pulse Resp BP Pulse Ox 09/16/19 13:29 18 09/16/19 11:20 97.6 F 84 16 118/92 98 - Laboratory Lab Results: Lab Results 09/16/19 09/16/19 Range/Units 12:25 12:25 WBC 10.1 (3.5-10.8) 10^3/uL RBC 5.17 H (3.70-4.87) 10^6 /uL Hgb 13.7 (12.0-16.0) g/dL Hct 41 (35-47) % MCV 79 L (80-97) fL MCH 27 (27-31) pg MCHC 33 (31-36) g/dL RDW 16 H (10-15) % Plt Count 404 (150-450) 10^3/uL MPV 7.5 (7.4-10.4) fL Neut % (Auto) 52.0 % Lymph % (Auto) 36.0 % [place] % (Auto) 9.3 % Eos % (Auto) 1.8 % Baso % (Auto) 0.9 % Absolute Neuts (auto) 5.3 (1.5-7.7) 10^3/ul Absolute Lymphs (auto) 3.7 (1.0-4.8) 10^3/ul Absolute Monos (auto) 0.9 H (0-0.8) 10^3/ul Absolute Eos (auto) 0.2 (0-0.6) 10^3/ul Absolute Basos (auto) 0.1 (0-0.2) 10^3/ul Absolute Nucleated RBC 0.0 10^3/ul Nucleated RBC % 0.0 Sodium 137 (135-145) mmol/L Potassium 4.0 (3.5-5.0) mmol/L Chloride 100 L (101-111) mmol/L Carbon Dioxide 27 (22-32) mmol/L Anion Gap 10 (2-11) mmol/L BUN 19 (6-24) mg/dL Creatinine 1.06 H (0.51-0.95) mg/dL Est GFR ( Amer) 63.1 (>60) Est GFR (Non-Af Amer) 52.2 (>60) BUN/Creatinine Ratio 17.9 (8-20) Glucose 159 H (70-100) mg/dL Calcium 10.0 (8.6-10.3) mg/dL Total Bilirubin 1.10 H (0.2-1.0) mg/dL AST 23 (13-39) U/L ALT 16 (7-52) U/L Alkaline Phosphatase 77 (34-104) U/L C-Reactive Protein 3.39 (<8.01) mg/L Total Protein 8.0 (6.4-8.9) g/dL Albumin 3.9 (3.2-5.2) g/dL Globulin 4.1 H (2-4) g/dL Albumin/Globulin Ratio 1.0 (1-3) Triglycerides 228 mg/dL Lipase < 10 L (11.0-82.0) U/L Result Diagrams: 09/16/19 12:25 09/16/19 12:25 Lab Statement: Any lab studies that have been ordered have been reviewed, and results considered in the medical decision making process. Abdominal Pain Fem Course/Dx - Course Course Of Treatment: Patient was evaluated in the emergency department today for abdominal pain. Patient seen and examined vitals are stable and she is afebrile. Patient was given an IV and 4 mg of morphine and 4 mg Zofran for pain as well as maaylox plus and viscous lidocaine. Labs returned showing no leukocytosis with a white blood cell count of 10.1. There is no evidence of anemia.there are no significant electrolyte abnormalities. lipase is less than 10, however this does not rule out chronic or acute on chronic pancreatitis. Abdominal ultrasound was done to investigate previously seen pancreatic cyst which shows cyst is noted in the pancreatic head. Patient is status post cholecystectomy. No biliary ductal dilation is noted. Doctor Fadia, gastroenterology, was consulted at 1443 for disposition of the patient. She states the cyst on the head of the pancreas is not concerning and does not require emergent care. She believes the patient may be treated on an outpatient basis if her pain can be adequately controlled in the emergency department for outpatient ultrasonic endoscopy otherwise admission should be considered for observation. Medicine was consulted for possible admission of the patient for pain control and suggested a cardiac workup given the patients history of ACS. Serial troponins negative and EKG negative for STEMI. Pt did state she struggles with opioid addication, thus a conversation was had in regards to outpatient treatment of her chronic pancreatitis. Pt decided she will use lifestyle modification and clear diet and take tylenol as needed for pain and follow up with GI as an outpatient. - Diagnoses Differential Diagnosis: Positive: Appendicitis, Hepatitis, Peptic Ulcer Disease Provider Diagnoses: Abdominal pain - Provider Notifications Discussed Care Of Patient With: Christina James - She believes the patient may be treated on an outpatient basis if her pain can be adequately controlled in the emergency department for outpatient ultrasonic endoscopy otherwise admission should be considered for observation. Time Discussed With Above Provider: 14:43 Discharge ED - Sign-Out/Discharge Documenting (check all that apply): Patient Departure - Discharge Plan Condition: Stable Disposition: HOME Patient Education Materials: Pancreatitis (ED), Clear Liquid Diet (ED) Referrals: Christina James MD [Medical Doctor] - Long Calderón MD [Primary Care Provider] - Additional Instructions: You were seen in the emergency department today for abdominal pain. There appears to be no acute process requiring intervention at this time. your pain is likely due to chronic pancreatitis which can be managed with Tylenol and lifestyle modification. Please have a clear liquid diet and follow up with gastroenterology in the next 2 days. I've given you the number for our senior physician Dr. James Please take Tylenol as needed for pain 650 mg every 6 hours. Please return to the emergency department immediately if you develop any new or worsening symptoms. The Attending Anesthesiologist I spoke to today does not find the cyst on your pancreas requiring intervention at this time. - Billing Disposition and Condition Condition: STABLE Disposition: Home - Attestation Statements Provider Attestation: I was available for consult. This patient was seen by the MARY. The patient was not presented to, seen by, or examined by me. Beni Balbuena MD
[2019-09-16] MEDS ORDERED: Acetaminophen TAB* 325 MG PO ONE (15:41)
[2019-09-16 16:58] LABS: Troponin I 0.01 ng/mL (<0.03)
[2019-09-16 17:55] VITALS: BP 109/71
--- NOTE | 2019-09-16 22:02 | CONS ---
CONSULTATION REPORT: DATE OF CONSULT: 09/16/19 - EMERGENCY DEPT PROVIDER: JOSÉ Guzman REQUESTING PROVIDER: JOSÉ Abraham ATTENDING PHYSICIAN WHILE IN THE HOSPITAL: Dr. Jina Kidd (dictated by JOSÉ Guzman). REASON FOR CONSULT: Right upper quadrant pain. HISTORY OF PRESENT ILLNESS: Ayanna Leon is a 64-year-old white female with past medical history significant for coronary artery disease with STEMI, status post drug-eluting stent placement in May 2019; AFib, status post pacemaker ; diabetes mellitus type 2; obesity; Erickson's; obstructive sleep apnea who presents to the emergency department due to worsening right upper quadrant pain. The patient has been having on and off right upper quadrant pain for the last 2 weeks. This caused her to report to her primary care provider, Dr. Calderón, about this. She had a CT abdomen and pelvis on 09/14/19 by his orders , and the CT abdomen and pelvis demonstrated chronic appendicitis, fatty infiltration of the liver, and 1.8 cm cystic lesion of the head of the pancreas , and he planned for her to have a gastroenterology evaluation on 09/29/19. This appointment has already been scheduled. The patient presents today because the right upper quadrant pain has been becoming increasingly worse in the last 2 days and always associated with nausea. She says the pain is particularly worse with positional changes. Since she arrived to the emergency department, she has received Zofran, morphine, and Maalox as well as Tylenol and she finds that her pain has only minimally improved, although her nausea has resolved. She denies vomiting, diarrhea, skin changes, chest pain, shortness of breath, fever, chills, hematochezia, melena. She mentions she has had chronic constipation for approximately 3 months. PAST MEDICAL HISTORY: 1. Coronary artery disease with STEMI, status post drug-eluting stent placement to the LAD in May 2019. 2. Atrial fibrillation, status post pacemaker. 3. Diabetes mellitus, type 2. 4. Erickson's. 5. TRISTAN. 6. Obesity. 7. Neuropathy. 8. Spinal stenosis. 9. Hyperlipidemia. 10. GERD. 11. Anxiety. PAST SURGICAL HISTORY: 1. Cholecystectomy. 2. Hysterectomy. 3. Left fourth toe amputation. 4. Right first toe amputation. 5. Pacemaker placement. 6. Ankle surgery. HOME MEDICATIONS: 1. Insulin NPH 30 units subcu b.i.d. 2. Insulin lispro 20 units subcu a.c. 3. Torsemide 20 mg p.o. b.i.d. 4. Spironolactone 25 mg p.o. daily. 5. Victoza 1.8 mg subcu daily. 6. Pantoprazole 40 mg p.o. daily. 7. Metoprolol succinate 12.5 mg p.o. daily. 8. Plavix 75 mg p.o. daily. 9. Lipitor 80 mg p.o. daily. 10. BuSpar 15 mg p.o. b.i.d. 11. Imdur 15 mg p.o. daily. 12. Eliquis 5 mg p.o. b.i.d. 13. Gabapentin 300 mg p.o. b.i.d. 14. Invokana 300 mg p.o. daily. 15. Prednisone 5 mg p.o. daily. ALLERGIES: 1. Difficulty swallowing with ALBUTEROL. 2. Skin reaction to LATEX. 3. Diarrhea to METFORMIN. 4. Altered mental status to LYRICA. 5. GI upset to CODEINE. 6. GI upset to HYDROCODONE. 7. Nausea to BACTRIM. 8. Nausea to SULFA drugs. FAMILY HISTORY: Her brother passed with an [place] at age 45. Her father had a history of COPD and he is now , and her mother had a history of coronary artery disease. SOCIAL HISTORY: The patient denies tobacco use, alcohol use, or illicit drug use. She has never been a heavy drinker. She lives alone. REVIEW OF SYSTEMS: An 11-point review of systems was completed and all pertinent positives and negatives are above in the HPI. All other systems are negative. PHYSICAL EXAM: Vital Signs: Temperature 97.6, pulse 84, respiratory rate 16, oxygen saturation 98% on room air, blood pressure 118/92. General: Obese elderly white female who appears older than stated age, lying upright in hospital bed, appearing comfortable, in no acute distress. Eyes: PERRLA. Sclerae anicteric. ENT: Mucous membranes moist. Lungs: Clear to auscultation throughout. Cardio: Regular rate and rhythm without murmurs, rubs, or gallops. Abdomen: Normoactive bowel sounds throughout. Abdomen is soft, nondistended. Tenderness to palpation in the right upper quadrant very close to the rib cage and in the epigastric region. No guarding. No referred tenderness. Extremities: No clubbing, cyanosis, or edema. Neuro: The patient is alert and oriented x3. No focal deficits. Able to move all extremities. DIAGNOSTIC STUDIES/LAB DATA: CT abdomen and pelvis on 09/14/19, impression: 1. Fatty infiltration of liver. 2. 1.8 cystic lesion of the head of the pancreas. The differential includes low- grade cystic neoplasm. 3. Pancreatic head calcification suggestive of sequela of chronic pancreatitis. Abdomen ultrasound on 09/16/19, a cyst is noted in the pancreatic head. The patient is status post cholecystectomy. No biliary ductal dilation is needed. EKG: Ventricularly paced rhythm, rate 60 beats per minute. T-wave inversions previously in V2 through V6 on prior EKG in May [address] are now resolved. No ST elevations, depressions, or T-wave changes in today's EKG. Hemoglobin 13.7, hematocrit , white blood cell count 10.1, platelet count 404. Sodium 137, potassium 4.0, chloride 100, carbon dioxide 27, anion gap 10, BUN 19, creatinine 1.06, glucose 159, calcium 10. Total bili 1.1, AST 23, ALT 16, alk phos 77. Troponin 0.01, 0.00. ASSESSMENT AND PLAN: Ayanna Leon is a 64-year-old white female with past medical history significant for recent ST-elevation myocardial infarction; atrial fibrillation, status post pacemaker; diabetes mellitus, type 2; obstructive sleep apnea; obesity; and Erickson's who presents to the emergency department due to right upper quadrant pain. Hospital Medicine has been consulted regarding this patient. 1. Right upper quadrant pain. Given the significant and recent coronary artery disease in the patient, I believe it is necessary to rule out atypical chest pain that could have possibly reflected acute coronary syndrome. Her EKG appears actually improved from her previous EKG from her previous hospital stay for her ST- elevation myocardial infarction. Additionally, her troponins are negative. This right upper quadrant pain has been ongoing for 2 days, so if this did represent acute coronary syndrome, she would have a positive troponin to this point. It is quite possible this pain is reflective of her chronic pancreatitis. Her lipase is negative, and therefore, she does not have acute on chronic pancreatitis. The etiology of her pain is unclear at this point. It is possibly musculoskeletal and the patient appears agreeable to conservative management of this pain and following up as directed with Gastroenterology on 09/29/19. 2. Coronary artery disease. Continue her home medications of metoprolol, Plavix, Lipitor as well as torsemide and spironolactone. Continue home Imdur. 3. Diabetes. She may continue her normal home insulin regimen, Victoza, and Invokana. 4. Neuropathy. She should continue her home gabapentin. 5. Erickson's. She can continue her home prednisone. 6. Gastroesophageal reflux disease. Continue home pantoprazole. 7. Atrial fibrillation. Continue home Eliquis. 8. Anxiety. Continue home BuSpar. 9. Disposition: Home to be discharged by the emergency department provider, JOSÉ Abraham. Thank you for involving us in the care of this patient. She should follow up with primary care provider as well as Gastroenterology. JOSÉ GUZMAN [id number]/[facility] #: [id number]
== END 2019-09-16 17:56 | disposition home or self-care (01) ==
LOC: ED 11:11
DX: R10.11 Right upper quadrant pain (principal); K86.2 Cyst of pancreas; E11.9 Type 2 diabetes mellitus without complications; I48.91 Unspecified atrial fibrillation; I11.0 Hypertensive heart disease with heart failure; I50.9 Heart failure, unspecified; I25.10 Atherosclerotic heart disease of native coronary artery without angina pectoris; E78.00 Pure hypercholesterolemia, unspecified; I73.9 Peripheral vascular disease, unspecified; K21.9 Gastro-esophageal reflux disease without esophagitis; F41.9 Anxiety disorder, unspecified; A50.02 Early congenital syphilitic osteochondropathy; I25.2 Old myocardial infarction; Z95.810 Presence of automatic (implantable) cardiac defibrillator; Z95.5 Presence of coronary angioplasty implant and graft; Z86.711 Personal history of pulmonary embolism; Z90.49 Acquired absence of other specified parts of digestive tract; Z98.51 Tubal ligation status; Z90.710 Acquired absence of both cervix and uterus; Z89.422 Acquired absence of other left toe(s); Z89.421 Acquired absence of other right toe(s); Z79.4 Long term (current) use of insulin; Z79.01 Long term (current) use of anticoagulants; Z79.899 Other long term (current) drug therapy; Z88.5 Allergy status to narcotic agent; Z88.2 Allergy status to sulfonamides; Z88.8 Allergy status to other drugs, medicaments and biological substances; Z88.1 Allergy status to other antibiotic agents; Z91.040 Latex allergy status
CPT/HCPCS: 36415; 76705; 80053; 83690; 84478; 84484; 85025; 86140; 93005; 96374; 96375; 99282; A9270-GY; J2270; J2405

== ENCOUNTER 2021-04-30 10:26 | Inpatient (IN) ==
[2021-04-30] MEDS ORDERED: Vancomycin 1,000 MG in NS 0.9% 250 ml 250 ML IVPB ONE (12:11)
[2021-04-30 13:06] LABS: ABS Lymphocytes 1.5 10^3/ul (1.0-4.8); ABS Monocytes 1.2 10^3/ul (0-0.8); ABS Neutrophils 12.1 10^3/ul (1.5-7.7); Hematocrit 31 % (35-47); Hemoglobin 9.7 g/dL (12.0-16.0); Lymphocyte % 10.1 %; Mean Corpuscular HGB Conc 31 g/dL (31-36); Mean Corpuscular Hemoglobin 21 pg (27-31); Mean Corpuscular Volume 68 fL (80-97); Mean Platelet Volume 7.3 fL (7.4-10.4); Nucleated Red Blood Cells % 0.2; Platelet Count 560 10^3/uL (150-450); Red Blood Count 4.59 10^6 /uL (3.70-4.87); Red Cell Distribution Width 20 % (10-15); White Blood Count 14.8 10^3/uL (3.5-10.8)
[2021-04-30 13:16] LABS: Albumin 3.4 g/dL (3.2-5.2); Albumin/Globulin Ratio 0.8 (1-3); C Reactive Protein 85.23 mg/L (<8.01); Calcium 9.5 mg/dL (8.6-10.3); EGFR African American 45.5 (>60); EGFR Non-African American 37.6 (>60); Globulin 4.4 g/dL (2-4); Potassium 3.5 mmol/L (3.5-5.0); Total Bilirubin 1.3 mg/dL (0.2-1.0); Total Protein 7.8 g/dL (6.4-8.9)
[2021-04-30] MEDS ORDERED: Cefepime 1 GM in NS 0.9% 50 ML 50 ML IVPB ONE (14:50)
[2021-04-30 15:51] LABS: Magnesium 2.3 mg/dL (1.9-2.7)
[2021-04-30] MEDS ORDERED: LEVALBUTEROL 1.25 MG/3 ML INH PRN (17:52)
[2021-04-30] MEDS ORDERED: Cefepime 1 GM in Dextrose 1 GM/50 ML BAG IV SCH (18:00)
[2021-04-30] MEDS ORDERED: Vancomycin per Pharmacy 1 EA NOTE FOLLOW UP SCH (18:00)
[2021-04-30] MEDS ORDERED: Dextrose 50% Syringe 50 ml 25 GM/50 ML SYRINGE IV PUSH PRN (18:04)
[2021-04-30] MEDS ORDERED: Vancomycin 500 MG in NS 0.9% 250 ML IVPB ONE (19:00)
[2021-05-01] MEDS: Cefepime 1 GM in NS 0.9% 50 ML 50 ML IVPB SCH ×2 (06:02→20:38)
[2021-05-01 07:19] LABS: ABS Lymphocytes 2.1 10^3/ul (1.0-4.8); ABS Monocytes 1.2 10^3/ul (0-0.8); ABS Neutrophils 8.3 10^3/ul (1.5-7.7); Eosinophil % 0.2 %; Hematocrit 29 % (35-47); Lymphocyte % 17.9 %; Mean Corpuscular HGB Conc 32 g/dL (31-36); Mean Corpuscular Hemoglobin 22 pg (27-31); Mean Corpuscular Volume 69 fL (80-97); Mean Platelet Volume 7.2 fL (7.4-10.4); Nucleated Red Blood Cells % 0.1; Platelet Count 475 10^3/uL (150-450); Red Blood Count 4.17 10^6 /uL (3.70-4.87); Red Cell Distribution Width 20 % (10-15); White Blood Count 11.6 10^3/uL (3.5-10.8)
[2021-05-01 07:25] LABS: Albumin 2.9 g/dL (3.2-5.2); Albumin/Globulin Ratio 0.8 (1-3); C Reactive Protein 64.88 mg/L (<8.01); Calcium 8.8 mg/dL (8.6-10.3); EGFR African American 58.3 (>60); EGFR Non-African American 48.2 (>60); Globulin 3.8 g/dL (2-4); Potassium 3.5 mmol/L (3.5-5.0); Total Protein 6.7 g/dL (6.4-8.9)
[2021-05-01] MEDS: Isosorbide Mononit ER 30mg TAB PO SCH (08:54)
[2021-05-01] MEDS: Insulin GLARGINE 100 un/ml 10 ml VIAL SUBCUT SCH (08:55)
[2021-05-01] MEDS ORDERED: AMYLASE PO SCH (09:00)
[2021-05-01] MEDS ORDERED: [UNRECOGNIZED DRUG - OTHER] PO SCH (09:00)
[2021-05-01] MEDS ORDERED: LIPASE PO SCH (09:00)
[2021-05-01] MEDS ORDERED: PROTEASE PO SCH (09:00)
[2021-05-01] MEDS: Collagenase 250 units/gm OINT 1 tube TOPICAL SCH (10:27)
[2021-05-01] MEDS: Vancomycin 1,500 MG in NS 0.9% 250 ml 250 ML IVPB SCH (16:56)
[2021-05-01] MEDS: PROTEASE PO SCH (18:12)
[2021-05-01] MEDS: LIPASE PO SCH (18:12)
[2021-05-01] MEDS: AMYLASE PO SCH (18:12)
[2021-05-01] MEDS: [UNRECOGNIZED DRUG - OTHER] PO SCH (18:12)
[2021-05-02] MEDS: Cefepime 1 GM in NS 0.9% 50 ML 50 ML IVPB SCH ×2 (05:32→21:27)
[2021-05-02 06:22] LABS: ABS Lymphocytes 2.1 10^3/ul (1.0-4.8); ABS Neutrophils 7.3 10^3/ul (1.5-7.7); Eosinophil % 0.3 %; Hematocrit 31 % (35-47); Hemoglobin 9.5 g/dL (12.0-16.0); Lymphocyte % 20.4 %; Mean Corpuscular HGB Conc 31 g/dL (31-36); Mean Corpuscular Hemoglobin 21 pg (27-31); Mean Corpuscular Volume 70 fL (80-97); Nucleated Red Blood Cells % 0.1; Platelet Count 488 10^3/uL (150-450); Red Blood Count 4.45 10^6 /uL (3.70-4.87); Red Cell Distribution Width 21 % (10-15); White Blood Count 10.5 10^3/uL (3.5-10.8)
[2021-05-02 06:34] LABS: Albumin 2.9 g/dL (3.2-5.2); Albumin/Globulin Ratio 0.8 (1-3); Calcium 8.8 mg/dL (8.6-10.3); EGFR African American 57.1 (>60); EGFR Non-African American 47.2 (>60); Globulin 3.8 g/dL (2-4); Potassium 3.3 mmol/L (3.5-5.0); Total Bilirubin 0.9 mg/dL (0.2-1.0); Total Protein 6.7 g/dL (6.4-8.9)
[2021-05-02 08:22] LABS: Magnesium 2.3 mg/dL (1.9-2.7)
[2021-05-02] MEDS: Isosorbide Mononit ER 30mg TAB PO SCH (09:10)
[2021-05-02] MEDS: KCL 20 MEQ/100 ML IVPREMIX 20 MEQ/100 ML BAG IV SCH ×2 (09:13→15:55)
[2021-05-02] MEDS: Insulin GLARGINE 100 un/ml 10 ml VIAL SUBCUT SCH (09:13)
[2021-05-02] MEDS: Collagenase 250 units/gm OINT 1 tube TOPICAL SCH (12:33)
[2021-05-02] MEDS ORDERED: Potassium Chlor 20 meq TAB.ER PO ONE (15:44)
[2021-05-02] MEDS: LIPASE PO SCH (16:50)
[2021-05-02] MEDS: AMYLASE PO SCH (16:50)
[2021-05-02] MEDS: [UNRECOGNIZED DRUG - OTHER] PO SCH (16:50)
[2021-05-02] MEDS: PROTEASE PO SCH (16:50)
[2021-05-02] MEDS: Vancomycin 1,500 MG in NS 0.9% 250 ml 250 ML IVPB SCH (16:51)
[2021-05-02] MEDS: Polyethylene Glycol 3350 17 GM PACKET PO SCH (17:16)
[2021-05-03] MEDS: Cefepime 1 GM in NS 0.9% 50 ML 50 ML IVPB SCH ×2 (05:03→18:20)
[2021-05-03 06:29] LABS: ABS Basophils 0.1 10^3/ul (0-0.2); ABS Lymphocytes 1.9 10^3/ul (1.0-4.8); ABS Monocytes 1.2 10^3/ul (0-0.8); ABS Neutrophils 6.7 10^3/ul (1.5-7.7); Eosinophil % 0.4 %; Hematocrit 31 % (35-47); Hemoglobin 9.6 g/dL (12.0-16.0); Lymphocyte % 19.3 %; Mean Corpuscular HGB Conc 31 g/dL (31-36); Mean Corpuscular Hemoglobin 22 pg (27-31); Mean Corpuscular Volume 70 fL (80-97); Mean Platelet Volume 6.8 fL (7.4-10.4); Nucleated Red Blood Cells % 0.1; Platelet Count 471 10^3/uL (150-450); Red Blood Count 4.45 10^6 /uL (3.70-4.87); Red Cell Distribution Width 21 % (10-15); White Blood Count 9.9 10^3/uL (3.5-10.8)
[2021-05-03 06:43] LABS: Albumin 2.9 g/dL (3.2-5.2); Albumin/Globulin Ratio 0.8 (1-3); C Reactive Protein 35.88 mg/L (<8.01); Calcium 8.9 mg/dL (8.6-10.3); EGFR African American 60.8 (>60); EGFR Non-African American 50.2 (>60); Globulin 3.8 g/dL (2-4); Potassium 3.6 mmol/L (3.5-5.0); Total Bilirubin 1.1 mg/dL (0.2-1.0); Total Protein 6.7 g/dL (6.4-8.9)
[2021-05-03] MEDS: Polyethylene Glycol 3350 17 GM PACKET PO SCH (09:05)
[2021-05-03] MEDS: Magnesium Hydroxide LIQ 30 ML UDC PO PRN (09:05)
[2021-05-03] MEDS: Collagenase 250 units/gm OINT 1 tube TOPICAL SCH (09:07)
[2021-05-03] MEDS: Isosorbide Mononit ER 30mg TAB PO SCH (09:07)
[2021-05-03] MEDS: Insulin GLARGINE 100 un/ml 10 ml VIAL SUBCUT SCH (09:07)
[2021-05-03] MEDS ORDERED: Vancomycin Trough Check NOTE FOLLOW UP ONE (16:30)
[2021-05-03] MEDS: PROTEASE PO SCH (17:37)
[2021-05-03] MEDS: [UNRECOGNIZED DRUG - OTHER] PO SCH (17:37)
[2021-05-03] MEDS: AMYLASE PO SCH (17:37)
[2021-05-03] MEDS: LIPASE PO SCH (17:37)
[2021-05-03] MEDS: Vancomycin 1,500 MG in NS 0.9% 250 ml 250 ML IVPB SCH (18:26)
[2021-05-04] MEDS: Cefepime 1 GM in NS 0.9% 50 ML 50 ML IVPB SCH ×2 (06:02→17:27)
[2021-05-04] MEDS: Vancomycin 1,250 MG in NS 0.9% 250 ml 250 ML IVPB SCH (07:03)
[2021-05-04] MEDS: Magnesium Hydroxide LIQ 30 ML UDC PO PRN (09:01)
[2021-05-04] MEDS: Polyethylene Glycol 3350 17 GM PACKET PO SCH (09:01)
[2021-05-04] MEDS: Isosorbide Mononit ER 30mg TAB PO SCH (09:04)
[2021-05-04] MEDS: Insulin GLARGINE 100 un/ml 10 ml VIAL SUBCUT SCH (09:08)
[2021-05-04] MEDS: Collagenase 250 units/gm OINT 1 tube TOPICAL SCH (13:16)
[2021-05-04] MEDS: [UNRECOGNIZED DRUG - OTHER] PO SCH (17:26)
[2021-05-04] MEDS: LIPASE PO SCH (17:26)
[2021-05-04] MEDS: AMYLASE PO SCH (17:26)
[2021-05-04] MEDS: PROTEASE PO SCH (17:26)
[2021-05-04] MEDS: Senna TAB 8.6 mg TAB PO PRN (21:24)
[2021-05-05 06:07] LABS: CO2 Carbon Dioxide 27 mmol/L (22-32); Calcium 8.6 mg/dL (8.6-10.3); Chloride 93 mmol/L (101-111); Sodium 131 mmol/L (135-145)
[2021-05-05 06:11] LABS: Anion Gap 11 mmol/L (2-11)
[2021-05-05 06:13] LABS: Blood Urea Nitrogen 45 mg/dL (6-24); EGFR African American 53.9 (>60); EGFR Non-African American 44.5 (>60); Glucose 88 mg/dL (70-100)
[2021-05-05] MEDS: Cefepime 1 GM in NS 0.9% 50 ML 50 ML IVPB SCH ×2 (06:15→17:39)
[2021-05-05] MEDS: Vancomycin 1,250 MG in NS 0.9% 250 ml 250 ML IVPB SCH (07:10)
[2021-05-05] MEDS ORDERED: Iohexol 350 (CONTRAST) 200 ML MDV IV ONE (07:42)
[2021-05-05] MEDS ORDERED: Iodixanol 320 (CONTRAST) 100 ML SDV ONE (07:42)
[2021-05-05] MEDS ORDERED: Heparin 2 UNITS/ML IVPREMIX 3,000 UNIT/1,500 ML BAG IV ONE (07:43)
[2021-05-05] MEDS ORDERED: Lidocaine 1% VIAL 10 MG/ML VIAL ONE (07:43)
[2021-05-05] MEDS ORDERED: Ondansetron 4 mg VIAL 2 MG/ML 2 ml VIAL ONE (08:08)
[2021-05-05] MEDS ORDERED: Midazolam 5 mg/5 ml VIAL 1 mg/ml 5 ml VIAL (5 mg) ONE (08:18)
[2021-05-05] MEDS ORDERED: fentaNYL 100 mcg/2 ml 50 MCG/ML VIAL ONE ×2 (08:18→09:11)
[2021-05-05] MEDS ORDERED: NS 0.9% 1000 ml BAG 1,000 ML IV SCH (09:15)
[2021-05-05] MEDS: Insulin GLARGINE 100 un/ml 10 ml VIAL SUBCUT SCH (10:24)
[2021-05-05 12:01] LABS: ABS Basophils 0.1 10^3/ul (0-0.2); ABS Eosinophils 0.1 10^3/ul (0-0.6); ABS Lymphocytes 2.7 10^3/ul (1.0-4.8); ABS Monocytes 1.3 10^3/ul (0-0.8); Eosinophil % 0.8 %; Hematocrit 36 % (35-47); Hemoglobin 11.1 g/dL (12.0-16.0); Lymphocyte % 26.6 %; Mean Corpuscular HGB Conc 31 g/dL (31-36); Mean Corpuscular Hemoglobin 22 pg (27-31); Mean Corpuscular Volume 72 fL (80-97); Mean Platelet Volume 7.1 fL (7.4-10.4); Nucleated Red Blood Cells % 0.1; Platelet Count 492 10^3/uL (150-450); Red Blood Count 5.08 10^6 /uL (3.70-4.87); Red Cell Distribution Width 21 % (10-15); White Blood Count 10.1 10^3/uL (3.5-10.8)
[2021-05-05] MEDS: Polyethylene Glycol 3350 17 GM PACKET PO SCH (13:39)
[2021-05-05] MEDS: Isosorbide Mononit ER 30mg TAB PO SCH (13:40)
[2021-05-05] MEDS: Collagenase 250 units/gm OINT 1 tube TOPICAL SCH (13:43)
[2021-05-05] MEDS: PROTEASE PO SCH (17:39)
[2021-05-05] MEDS: AMYLASE PO SCH (17:39)
[2021-05-05] MEDS: [UNRECOGNIZED DRUG - OTHER] PO SCH (17:39)
[2021-05-05] MEDS: LIPASE PO SCH (17:39)
[2021-05-05] MEDS: Senna TAB 8.6 mg TAB PO PRN (21:22)
[2021-05-06] MEDS: Cefepime 1 GM in NS 0.9% 50 ML 50 ML IVPB SCH (06:14)
[2021-05-06] MEDS: Isosorbide Mononit ER 30mg TAB PO SCH (08:16)
[2021-05-06] MEDS: Insulin GLARGINE 100 un/ml 10 ml VIAL SUBCUT SCH (08:16)
[2021-05-06] MEDS: Vancomycin 1,250 MG in NS 0.9% 250 ml 250 ML IVPB SCH (08:16)
[2021-05-06] MEDS: Polyethylene Glycol 3350 17 GM PACKET PO SCH (08:17)
[2021-05-06 09:45] LABS: Calcium 9.1 mg/dL (8.6-10.3); EGFR African American 53.4 (>60); EGFR Non-African American 44.1 (>60); Potassium 3.7 mmol/L (3.5-5.0)
[2021-05-06] MEDS: Collagenase 250 units/gm OINT 1 tube TOPICAL SCH (13:39)
[2021-05-06 14:09] VITALS: BP 135/58
[2021-05-07] MEDS ORDERED: Vancomycin Trough Check NOTE FOLLOW UP ONE (06:00)
== END 2021-05-06 16:49 | disposition home health service (06) | DRG 872 ==
LOC: ED 10:26 → SSU 10:26 → SUATTDRO 05-01 11:00 → SSU 05-02 08:38 → MED 05-03 10:18
PROVIDERS: ADMIT Nurse Practitioner Family; ATTEND Internal Medicine

== ENCOUNTER 2021-05-30 09:15 | Inpatient (IN) ==
[~2021-05-30 09:15] MED LIST changes: +Buffered Lidocaine 1% SYRIN 1 ml INTRADERM ONE; -Buffered Lidocaine 1% SYRIN* 1 ML/SYRINGE INTRADERM ONE; -Lactated Ringers 1000 ML Bag* 1,000 ML IV SCH; +Lactated Ringers 1000 ml BAG 1,000 ML IV SCH; -ceFAZolin 2 GM PREMIX in ORs 2 GM/50 ML BAG ONE
[2021-06-01] MEDS ORDERED: Buffered Lidocaine 1% SYRIN 1 ml INTRADERM ONE ×2 (06:00→11:32)
[2021-06-01] MEDS ORDERED: Lactated Ringers 1000 ml BAG 1,000 ML IV SCH (06:00)
[2021-06-01] MEDS ORDERED: ceFAZolin 2 GM in NS PREMIX 2 GM/100 ML BAG IVPB ONE (11:04)
[2021-06-01] MEDS ORDERED: Bupivacaine 0.5% SDV PF 30ML VIAL ONE (11:46)
[2021-06-01] MEDS ORDERED: Prochlorperazine 5 mg/ml 2 ml VIAL (10 mg) IV PRN (12:01)
[2021-06-01] MEDS ORDERED: Naloxone 0.4 mg VIAL 0.4 mg/ml 1 ml VIAL IV PRN (12:01)
[2021-06-01] MEDS ORDERED: diPHENhydraMINE IV 50 MG/ML 1 ml VIAL (BENADRYL) IV PRN ×2 (12:01→13:28)
[2021-06-01] MEDS ORDERED: Ondansetron 4 mg VIAL 2 MG/ML 2 ml VIAL ONE (12:04)
[2021-06-01] MEDS ORDERED: Lidocaine 1% VIAL 10 MG/ML VIAL ONE (12:39)
[2021-06-01] MEDS ORDERED: fentaNYL 100 mcg/2 ml 50 MCG/ML VIAL ONE (12:45)
[2021-06-01] MEDS ORDERED: Lactulose 30 ml UDC PO PRN (13:28)
[2021-06-01] MEDS ORDERED: Ondansetron 4 mg VIAL 2 MG/ML 2 ml VIAL IV PRN (13:28)
[2021-06-01] MEDS ORDERED: Magnesium Hydroxide LIQ 30 ML UDC PO PRN (13:28)
[2021-06-01] MEDS ORDERED: diPHENhydraMINE 25 mg TAB PO PRN (13:28)
[2021-06-01] MEDS ORDERED: Ondansetron ODT 4 mg TAB 4 MG TAB PO PRN (13:28)
[2021-06-01] MEDS ORDERED: Fluticasone NASAL SPRAY 50MCG 16 gm SPRAY BTL INTRANASAL PRN (13:40)
[2021-06-01] MEDS ORDERED: Dextrose 50% Syringe 50 ml 25 GM/50 ML SYRINGE IV PUSH PRN (13:56)
[2021-06-01] MEDS ORDERED: Vancomycin per Pharmacy 1 EA NOTE FOLLOW UP SCH (14:00)
[2021-06-01] MEDS: Lactated Ringers 1000 ml BAG 1,000 ML IV SCH (14:59)
[2021-06-01] MEDS ORDERED: Vancomycin 1,500 MG in NS 0.9% 250 ml 250 ML IVPB ONE (15:30)
[2021-06-01] MEDS: Cefepime 2 GM in Dextrose 2 GM/50 ML BAG IV SCH (16:18)
[2021-06-01] MEDS: Pancrelipase 5,000 units CAP PO SCH (17:47)
[2021-06-01 17:58] LABS: EGFR African American 53.9 (>60); EGFR Non-African American 44.5 (>60)
[2021-06-01] MEDS: Magnesium Hydroxide LIQ 30 ML UDC PO SCH (21:54)
[2021-06-01] MEDS: Triamcinolone 0.025% OINT 15 GM TUBE TOPICAL SCH (23:04)
[2021-06-02] MEDS: Lactated Ringers 1000 ml BAG 1,000 ML IV SCH (02:00)
[2021-06-02] MEDS: Cefepime 2 GM in Dextrose 2 GM/50 ML BAG IV SCH ×2 (03:31→16:06)
[2021-06-02] MEDS ORDERED: Ondansetron 4 mg VIAL 2 MG/ML 2 ml VIAL IV ONE (06:00)
[2021-06-02 06:03] LABS: Hematocrit 31 % (35-47); Hemoglobin 9.7 g/dL (12.0-16.0); Mean Platelet Volume 6.9 fL (7.4-10.4); Platelet Count 455 10^3/uL (150-450)
[2021-06-02 06:20] LABS: Calcium 8.7 mg/dL (8.6-10.3); EGFR African American 60.1 (>60); EGFR Non-African American 49.7 (>60); Potassium 3.8 mmol/L (3.5-5.0)
[2021-06-02] MEDS: Magnesium Hydroxide LIQ 30 ML UDC PO SCH ×2 (09:28→21:23)
[2021-06-02] MEDS: Isosorbide Mononit ER 30mg TAB PO SCH (09:28)
[2021-06-02] MEDS: Vitamin THERAPEUTIC TAB PO SCH (09:29)
[2021-06-02] MEDS: Insulin GLARGINE 100 un/ml 10 ml VIAL SUBCUT SCH (09:30)
[2021-06-02 09:45] LABS: C Reactive Protein 51.21 mg/L (<8.01)
[2021-06-02] MEDS: Triamcinolone 0.025% OINT 15 GM TUBE TOPICAL SCH ×2 (09:50→21:30)
[2021-06-02] MEDS ORDERED: Magnesium Hydroxide LIQ 30 ML UDC PO PRN (11:43)
[2021-06-02] MEDS ORDERED: Magnesium Hydroxide LIQ 30 ML UDC PO SCH (12:00)
[2021-06-02] MEDS: Vancomycin 1,500 MG in NS 0.9% 250 ml 250 ML IVPB SCH (12:07)
[2021-06-02 13:32] LABS: Mean Corpuscular HGB Conc 32 g/dL (31-36); Mean Corpuscular Hemoglobin 24 pg (27-31); Mean Corpuscular Volume 75 fL (80-97); Red Blood Count 4.09 10^6 /uL (3.70-4.87); Red Cell Distribution Width 30 % (10-15); White Blood Count 8.3 10^3/uL (3.5-10.8)
[2021-06-02] MEDS: Pancrelipase 5,000 units CAP PO SCH (17:56)
[2021-06-03] MEDS: Cefepime 2 GM in Dextrose 2 GM/50 ML BAG IV SCH ×2 (04:18→16:08)
[2021-06-03 06:10] LABS: Hematocrit 31 % (35-47); Hemoglobin 10.1 g/dL (12.0-16.0); Mean Platelet Volume 6.8 fL (7.4-10.4); Platelet Count 458 10^3/uL (150-450)
[2021-06-03] MEDS: Magnesium Hydroxide LIQ 30 ML UDC PO SCH ×2 (09:03→22:06)
[2021-06-03] MEDS: Isosorbide Mononit ER 30mg TAB PO SCH (09:04)
[2021-06-03] MEDS: Insulin GLARGINE 100 un/ml 10 ml VIAL SUBCUT SCH (09:05)
[2021-06-03] MEDS: Vitamin THERAPEUTIC TAB PO SCH (09:05)
[2021-06-03] MEDS: Triamcinolone 0.025% OINT 15 GM TUBE TOPICAL SCH ×2 (09:12→22:06)
[2021-06-03] MEDS: Vancomycin 1,500 MG in NS 0.9% 250 ml 250 ML IVPB SCH (12:04)
[2021-06-03] MEDS: Pancrelipase 5,000 units CAP PO SCH (17:49)
[2021-06-03] MEDS: Senna TAB 8.6 mg TAB PO PRN (22:03)
[2021-06-04] MEDS: Cefepime 2 GM in Dextrose 2 GM/50 ML BAG IV SCH ×2 (04:33→17:14)
[2021-06-04 07:14] LABS: Hematocrit 31 % (35-47); Hemoglobin 10.1 g/dL (12.0-16.0); Mean Platelet Volume 7.2 fL (7.4-10.4); Platelet Count 477 10^3/uL (150-450)
[2021-06-04] MEDS: Isosorbide Mononit ER 30mg TAB PO SCH (09:26)
[2021-06-04] MEDS: Vitamin THERAPEUTIC TAB PO SCH (09:28)
[2021-06-04] MEDS: Magnesium Hydroxide LIQ 30 ML UDC PO SCH ×2 (09:28→21:38)
[2021-06-04] MEDS: Insulin GLARGINE 100 un/ml 10 ml VIAL SUBCUT SCH (09:28)
[2021-06-04] MEDS: Triamcinolone 0.025% OINT 15 GM TUBE TOPICAL SCH ×2 (09:52→21:38)
[2021-06-04] MEDS ORDERED: Vancomycin Trough Check NOTE FOLLOW UP ONE (11:30)
[2021-06-04] MEDS: Vancomycin 1,500 MG in NS 0.9% 250 ml 250 ML IVPB SCH (12:55)
[2021-06-04] MEDS: Pancrelipase 5,000 units CAP PO SCH (17:39)
[2021-06-05] MEDS: Cefepime 2 GM in Dextrose 2 GM/50 ML BAG IV SCH ×2 (03:58→16:06)
[2021-06-05] MEDS ORDERED: Vancomycin 1000 MG in NS 0.9% 250 ML IVPB SCH (06:00)
[2021-06-05 06:26] LABS: Hematocrit 31 % (35-47); Hemoglobin 9.8 g/dL (12.0-16.0); Mean Platelet Volume 6.9 fL (7.4-10.4); Platelet Count 481 10^3/uL (150-450)
[2021-06-05 06:42] LABS: Calcium 8.7 mg/dL (8.6-10.3); EGFR African American 51.4 (>60); EGFR Non-African American 42.5 (>60); Potassium 3.3 mmol/L (3.5-5.0)
[2021-06-05] MEDS ORDERED: Potassium Chlor 20 meq TAB.ER PO ONE (07:45)
[2021-06-05] MEDS: Insulin GLARGINE 100 un/ml 10 ml VIAL SUBCUT SCH (09:41)
[2021-06-05] MEDS: Isosorbide Mononit ER 30mg TAB PO SCH (09:42)
[2021-06-05] MEDS: Vitamin THERAPEUTIC TAB PO SCH (09:43)
[2021-06-05] MEDS: Triamcinolone 0.025% OINT 15 GM TUBE TOPICAL SCH ×2 (09:44→21:35)
[2021-06-05] MEDS ORDERED: Magnesium Sulfate IV 1GM/100ML 1 GM/100 ML BAG IV ONE (14:27)
[2021-06-05 14:56] LABS: Magnesium 3.3 mg/dL (1.9-2.7)
[2021-06-05] MEDS: Pancrelipase 5,000 units CAP PO SCH (17:58)
[2021-06-06] MEDS: Cefepime 2 GM in Dextrose 2 GM/50 ML BAG IV SCH ×2 (04:02→18:12)
[2021-06-06 06:08] LABS: Hematocrit 33 % (35-47); Hemoglobin 10.1 g/dL (12.0-16.0); Platelet Count 470 10^3/uL (150-450)
[2021-06-06 06:41] LABS: Albumin 2.7 g/dL (3.2-5.2); Albumin/Globulin Ratio 0.7 (1-3); Calcium 8.7 mg/dL (8.6-10.3); EGFR African American 54.9 (>60); EGFR Non-African American 45.4 (>60); Globulin 4.1 g/dL (2-4); Magnesium 3.1 mg/dL (1.9-2.7); Potassium 4.3 mmol/L (3.5-5.0); Total Bilirubin 0.7 mg/dL (0.2-1.0); Total Protein 6.8 g/dL (6.4-8.9)
[2021-06-06] MEDS ORDERED: NS 0.9% 500 ml BAG 500 ML IV ONE (08:08)
[2021-06-06] MEDS: Isosorbide Mononit ER 30mg TAB PO SCH (08:26)
[2021-06-06] MEDS: Vitamin THERAPEUTIC TAB PO SCH (08:27)
[2021-06-06] MEDS: Insulin GLARGINE 100 un/ml 10 ml VIAL SUBCUT SCH (08:28)
[2021-06-06] MEDS: Triamcinolone 0.025% OINT 15 GM TUBE TOPICAL SCH ×2 (08:34→22:25)
[2021-06-06] MEDS ORDERED: Flu vaccine *QUAD* 2021-22* 0.5 ML SYRINGE IM ONE (16:30)
[2021-06-06] MEDS ORDERED: COVID-19 VACCINE, AD26(JANSSEN)/PF 0.5 ML IM ONE (17:00)
[2021-06-06] MEDS: Pancrelipase 5,000 units CAP PO SCH (20:59)
[2021-06-07] MEDS: Cefepime 2 GM in Dextrose 2 GM/50 ML BAG IV SCH ×2 (04:51→16:43)
[2021-06-07 06:31] LABS: Calcium 8.7 mg/dL (8.6-10.3); EGFR African American 65.6 (>60); EGFR Non-African American 54.2 (>60); Magnesium 2.5 mg/dL (1.9-2.7); Potassium 3.9 mmol/L (3.5-5.0)
[2021-06-07] MEDS ORDERED: Flu vaccine *QUAD* 2021-22* 0.5 ML SYRINGE IM ONE (09:00)
[2021-06-07] MEDS: Insulin GLARGINE 100 un/ml 10 ml VIAL SUBCUT SCH (09:26)
[2021-06-07] MEDS: Vitamin THERAPEUTIC TAB PO SCH (09:55)
[2021-06-07] MEDS: Isosorbide Mononit ER 30mg TAB PO SCH (09:55)
[2021-06-07] MEDS: Triamcinolone 0.025% OINT 15 GM TUBE TOPICAL SCH ×2 (10:44→22:18)
[2021-06-07] MEDS: Pancrelipase 5,000 units CAP PO SCH (17:07)
[2021-06-08] MEDS: Cefepime 2 GM in Dextrose 2 GM/50 ML BAG IV SCH (04:30)
[2021-06-08] MEDS ORDERED: Vancomycin Trough Check NOTE FOLLOW UP ONE (05:30)
[2021-06-08 06:06] LABS: Hematocrit 32 % (35-47); Mean Corpuscular HGB Conc 32 g/dL (31-36); Mean Corpuscular Hemoglobin 24 pg (27-31); Mean Corpuscular Volume 76 fL (80-97); Mean Platelet Volume 7.2 fL (7.4-10.4); Platelet Count 421 10^3/uL (150-450); Red Blood Count 4.16 10^6 /uL (3.70-4.87); Red Cell Distribution Width 30 % (10-15); White Blood Count 7.5 10^3/uL (3.5-10.8)
[2021-06-08 06:29] LABS: ABS Basophils 0.1 10^3/ul (0-0.2); ABS Eosinophils 0.1 10^3/ul (0-0.6); ABS Lymphocytes 2.1 10^3/ul (1.0-4.8); ABS Monocytes 0.9 10^3/ul (0-0.8); ABS Neutrophils 4.2 10^3/ul (1.5-7.7); Calcium 8.6 mg/dL (8.6-10.3); EGFR Non-African American 46.3 (>60); Eosinophil % 1.9 %; Lymphocyte % 28.5 %; Magnesium 1.9 mg/dL (1.9-2.7); Nucleated Red Blood Cells % 0.1; Potassium 3.6 mmol/L (3.5-5.0)
[2021-06-08] MEDS: Insulin GLARGINE 100 un/ml 10 ml VIAL SUBCUT SCH (08:38)
[2021-06-08] MEDS: Isosorbide Mononit ER 30mg TAB PO SCH (08:40)
[2021-06-08] MEDS: Vitamin THERAPEUTIC TAB PO SCH (08:41)
[2021-06-08] MEDS: Triamcinolone 0.025% OINT 15 GM TUBE TOPICAL SCH ×2 (08:45→21:29)
[2021-06-08 08:57] LABS: Microcytosis 1+
[2021-06-08 08:58] LABS: Anisocytosis 2+; Burr Cells 2+; Hypochromasia 1+; Polychromasia 1+; Spherocytes 1+; Stomatocytes 1+; Target Cells 1+
[2021-06-08] MEDS: Pancrelipase 5,000 units CAP PO SCH (17:59)
[2021-06-09 07:28] VITALS: BP 146/72
[2021-06-09] MEDS: Insulin GLARGINE 100 un/ml 10 ml VIAL SUBCUT SCH (08:13)
[2021-06-09] MEDS: Isosorbide Mononit ER 30mg TAB PO SCH (08:13)
[2021-06-09] MEDS: Senna TAB 8.6 mg TAB PO PRN (08:13)
[2021-06-09] MEDS: Vitamin THERAPEUTIC TAB PO SCH (08:14)
[2021-06-09] MEDS: Triamcinolone 0.025% OINT 15 GM TUBE TOPICAL SCH (10:05)
== END 2021-06-09 14:11 | disposition swing bed (61) | DRG 580 ==
LOC: EDSTATUS 11:15 → AA 06-01 10:25 → SSU 06-01 13:28
PROVIDERS: ADMIT Orthopaedic Surgery; ATTEND Orthopaedic Surgery

== ENCOUNTER 2021-06-09 14:12 | Inpatient (IN) ==
[2021-06-09] MEDS ORDERED: Fluticasone NASAL SPRAY 50MCG 16 gm SPRAY BTL INTRANASAL PRN (15:15)
[2021-06-09] MEDS ORDERED: diPHENhydraMINE 25 mg TAB PO PRN (15:29)
[2021-06-09] MEDS ORDERED: Lactulose 30 ml UDC PO PRN (15:31)
[2021-06-09] MEDS ORDERED: Senna TAB 8.6 mg TAB PO PRN (15:32)
[2021-06-09] MEDS ORDERED: Dextrose 50% Syringe 50 ml 25 GM/50 ML SYRINGE IV PUSH PRN (16:37)
[2021-06-09] MEDS: Pancrelipase 5,000 units CAP PO SCH (17:33)
[2021-06-09] MEDS ORDERED: MOMETASONE 0.1% TOPICAL SCH (21:00)
[2021-06-10] MEDS ORDERED: Empagliflozin (NF) 25 MG TABLET PO SCH (09:00)
[2021-06-10] MEDS: Insulin GLARGINE 100 un/ml 10 ml VIAL SUBCUT SCH (09:46)
[2021-06-10] MEDS: Isosorbide Mononit ER 30mg TAB PO SCH (09:46)
[2021-06-10] MEDS: Vitamin THERAPEUTIC TAB PO SCH (09:49)
[2021-06-10] MEDS: Collagenase 250 units/gm OINT 1 tube TOPICAL SCH (12:38)
[2021-06-10] MEDS: Pancrelipase 5,000 units CAP PO SCH (17:35)
[2021-06-11] MEDS: Insulin GLARGINE 100 un/ml 10 ml VIAL SUBCUT SCH (08:59)
[2021-06-11] MEDS: Isosorbide Mononit ER 30mg TAB PO SCH (09:00)
[2021-06-11] MEDS: Vitamin THERAPEUTIC TAB PO SCH (09:00)
[2021-06-11] MEDS: Collagenase 250 units/gm OINT 1 tube TOPICAL SCH (09:03)
[2021-06-11] MEDS: Pancrelipase 5,000 units CAP PO SCH (17:26)
[2021-06-12 06:34] LABS: Hematocrit 34 % (35-47); Hemoglobin 10.6 g/dL (12.0-16.0); Mean Corpuscular HGB Conc 31 g/dL (31-36); Mean Corpuscular Hemoglobin 24 pg (27-31); Mean Corpuscular Volume 77 fL (80-97); Mean Platelet Volume 7.6 fL (7.4-10.4); Platelet Count 422 10^3/uL (150-450); Red Blood Count 4.39 10^6 /uL (3.70-4.87); Red Cell Distribution Width 31 % (10-15); White Blood Count 9.2 10^3/uL (3.5-10.8)
[2021-06-12 06:51] LABS: EGFR Non-African American 41.3 (>60); Potassium 3.5 mmol/L (3.5-5.0)
[2021-06-12 07:18] LABS: ABS Eosinophils 0.1 10^3/ul (0-0.6); ABS Lymphocytes 2.5 10^3/ul (1.0-4.8); ABS Monocytes 0.9 10^3/ul (0-0.8); ABS Neutrophils 5.8 10^3/ul (1.5-7.7); Eosinophil % 0.8 %; Lymphocyte % 26.8 %; Nucleated Red Blood Cells % 0.1
[2021-06-12] MEDS: Insulin GLARGINE 100 un/ml 10 ml VIAL SUBCUT SCH (09:21)
[2021-06-12] MEDS: Collagenase 250 units/gm OINT 1 tube TOPICAL SCH (09:22)
[2021-06-12] MEDS: Isosorbide Mononit ER 30mg TAB PO SCH (09:23)
[2021-06-12] MEDS: Vitamin THERAPEUTIC TAB PO SCH (09:24)
[2021-06-12] MEDS: Pancrelipase 5,000 units CAP PO SCH (17:40)
[2021-06-13] MEDS: Isosorbide Mononit ER 30mg TAB PO SCH (07:49)
[2021-06-13] MEDS: Vitamin THERAPEUTIC TAB PO SCH (07:50)
[2021-06-13] MEDS: Insulin GLARGINE 100 un/ml 10 ml VIAL SUBCUT SCH (07:51)
[2021-06-13] MEDS: Collagenase 250 units/gm OINT 1 tube TOPICAL SCH (07:55)
[2021-06-13 12:13] VITALS: BP 139/58
== END 2021-06-13 17:30 | disposition home or self-care (01) | DRG 593 ==
LOC: SSU 14:12
PROVIDERS: ADMIT Orthopaedic Surgery; ATTEND Orthopaedic Surgery

== ENCOUNTER 2021-07-31 13:26 | Observation (INO) ==
[2021-07-31 14:12] LABS: ABS Basophils 0.1 10^3/ul (0-0.2); ABS Lymphocytes 1.4 10^3/ul (1.0-4.8); ABS Monocytes 1.1 10^3/ul (0-0.8); ABS Neutrophils 16.6 10^3/ul (1.5-7.7); Eosinophil % 0.1 %; Hematocrit 35 % (35-47); Lymphocyte % 7.2 %; Mean Corpuscular HGB Conc 32 g/dL (31-36); Mean Corpuscular Hemoglobin 25 pg (27-31); Mean Corpuscular Volume 78 fL (80-97); Mean Platelet Volume 7.6 fL (7.4-10.4); Platelet Count 359 10^3/uL (150-450); Red Blood Count 4.48 10^6 /uL (3.70-4.87); Red Cell Distribution Width 21 % (10-15); White Blood Count 19.1 10^3/uL (3.5-10.8)
[2021-07-31 14:23] LABS: INR 2.03 (0.86-1.15)
[2021-07-31 14:29] LABS: Albumin 3.4 g/dL (3.2-5.2); Albumin/Globulin Ratio 0.9 (1-3); Calcium 8.9 mg/dL (8.6-10.3); Globulin 3.7 g/dL (2-4); Potassium 4.2 mmol/L (3.5-5.0); Total Protein 7.1 g/dL (6.4-8.9); Troponin I 0.01 ng/mL (<0.03)
[2021-07-31 17:23] LABS: Troponin I 0.03 ng/mL (<0.03)
[2021-07-31 17:50] LABS: Magnesium 1.7 mg/dL (1.9-2.7)
[2021-07-31] MEDS ORDERED: Iodixanol (CONTRAST) 320 MG/ML 100 ML SDV IV ONE (18:26)
[2021-07-31] MEDS ORDERED: Al Hydrox/Mg Hydrox/Simet LIQ 30 ML UDC PO PRN (19:18)
[2021-07-31 19:29] LABS: Rapid COVID-19 Molecular Undetected (Undetected)
[2021-07-31] MEDS ORDERED: Acetaminophen IV 1 GM/100ML 100 ML IV ONE (19:50)
[2021-07-31] MEDS ORDERED: Fluticasone NASAL SPRAY 50MCG 16 gm SPRAY BTL INTRANASAL PRN (22:08)
[2021-07-31] MEDS ORDERED: Dextrose 50% Syringe 50 ml 25 GM/50 ML SYRINGE IV PUSH PRN (22:12)
[2021-07-31] MEDS: Pantoprazole VIAL 40 MG VIAL IV SCH (23:47)
[2021-08-01] MEDS: Ondansetron 4 mg VIAL 2 MG/ML 2 ml VIAL IV PRN ×2 (04:22→10:26)
[2021-08-01 05:56] LABS: Hematocrit 34 % (35-47); Hemoglobin 10.9 g/dL (12.0-16.0); Mean Corpuscular HGB Conc 32 g/dL (31-36); Mean Corpuscular Hemoglobin 25 pg (27-31); Mean Corpuscular Volume 77 fL (80-97); Mean Platelet Volume 7.6 fL (7.4-10.4); Platelet Count 340 10^3/uL (150-450); Red Blood Count 4.34 10^6 /uL (3.70-4.87); Red Cell Distribution Width 22 % (10-15); White Blood Count 15.3 10^3/uL (3.5-10.8)
[2021-08-01 06:24] LABS: Calcium 9.6 mg/dL (8.6-10.3); Potassium 4.7 mmol/L (3.5-5.0)
[2021-08-01] MEDS ORDERED: Aminophylline 25 MG/ML VIAL ONE (07:46)
[2021-08-01] MEDS ORDERED: Regadenoson 0.4 MG/5 ML SYRINGE ONE (07:46)
[2021-08-01 08:29] LABS: ABS Basophils 0.1 10^3/ul (0-0.2); ABS Lymphocytes 3.1 10^3/ul (1.0-4.8); ABS Monocytes 1.6 10^3/ul (0-0.8); ABS Neutrophils 10.5 10^3/ul (1.5-7.7); Eosinophil % 0.1 %; Lymphocyte % 20.4 %
[2021-08-01] MEDS ORDERED: Lactated Ringers 1000 ml BAG 500 ML IV ONE (08:38)
[2021-08-01] MEDS ORDERED: Amoxicillin/Clavul 875/125 TAB (Augmentin 875 tab) PO SCH (09:00)
[2021-08-01] MEDS ORDERED: Collagenase 250 units/gm OINT 1 tube TOPICAL SCH (09:00)
[2021-08-01] MEDS: Clindamycin 600 MG/D5W BAG 600 MG/50 ML BAG IV SCH ×2 (10:26→17:36)
[2021-08-01] MEDS: Insulin GLARGINE 100 un/ml 10 ml VIAL SUBCUT SCH (10:26)
[2021-08-01 12:34] LABS: C Reactive Protein 136.44 mg/L (<8.01)
[2021-08-01] MEDS: Isosorbide Mononit ER 30mg TAB PO SCH (13:52)
[2021-08-01] MEDS ORDERED: Pancrelipase 5,000 units CAP PO SCH (18:00)
[2021-08-01 19:11] LABS: Urine Appearance Clear; Urine Bilirubin Negative (Negative); Urine Blood Negative (Negative); Urine Color Yellow; Urine Glucose Negative (Negative); Urine Ketones Negative (Negative); Urine Nitrite Negative (Negative); Urine Protein Negative (Negative); Urine Specific Gravity 1.011 (1.002-1.030); Urine Urobilinogen Negative (Negative)
[2021-08-01] MEDS: Pantoprazole VIAL 40 MG VIAL IV SCH (23:23)
[2021-08-02] MEDS: Clindamycin 600 MG/D5W BAG 600 MG/50 ML BAG IV SCH ×2 (01:57→09:32)
[2021-08-02 06:19] LABS: ABS Eosinophils 0.1 10^3/ul (0-0.6); ABS Lymphocytes 2.4 10^3/ul (1.0-4.8); ABS Monocytes 1.1 10^3/ul (0-0.8); ABS Neutrophils 4.9 10^3/ul (1.5-7.7); Hematocrit 31 % (35-47); Lymphocyte % 28.3 %; Mean Corpuscular HGB Conc 32 g/dL (31-36); Mean Corpuscular Hemoglobin 25 pg (27-31); Mean Corpuscular Volume 78 fL (80-97); Mean Platelet Volume 7.9 fL (7.4-10.4); Platelet Count 329 10^3/uL (150-450); Red Cell Distribution Width 22 % (10-15); White Blood Count 8.5 10^3/uL (3.5-10.8)
[2021-08-02 06:40] LABS: Calcium 9.1 mg/dL (8.6-10.3); Potassium 3.3 mmol/L (3.5-5.0); eGFR CKD-EPI 57.3 (>60)
[2021-08-02] MEDS ORDERED: Potassium Chlor 20 meq TAB.ER PO SCH (09:00)
[2021-08-02] MEDS: Isosorbide Mononit ER 30mg TAB PO SCH (09:35)
[2021-08-02] MEDS: Insulin GLARGINE 100 un/ml 10 ml VIAL SUBCUT SCH (09:44)
[2021-08-02 14:20] VITALS: BP 113/60
== END 2021-08-02 15:15 | disposition home or self-care (01) ==
LOC: ED 13:26 → EDHOLD 13:26 → SUATTDRO 21:22 → MEDTELE 22:27
PROVIDERS: ADMIT Student in an Organized Health Care Education/Training Program; ATTEND Internal Medicine

== ENCOUNTER 2021-09-18 12:37 | Observation (INO) ==
[2021-09-18 14:37] LABS: ABS Lymphocytes 1.3 10^3/ul (1.0-4.8); ABS Monocytes 0.7 10^3/ul (0-0.8); ABS Neutrophils 8.4 10^3/ul (1.5-7.7); Eosinophil % 0.2 %; Hematocrit 29 % (35-47); Hemoglobin 9.4 g/dL (12.0-16.0); Lymphocyte % 12.2 %; Mean Corpuscular HGB Conc 32 g/dL (31-36); Mean Corpuscular Hemoglobin 24 pg (27-31); Mean Corpuscular Volume 74 fL (80-97); Platelet Count 626 10^3/uL (150-450); Red Blood Count 3.95 10^6 /uL (3.70-4.87); Red Cell Distribution Width 19 % (10-15); White Blood Count 10.4 10^3/uL (3.5-10.8)
[2021-09-18 14:47] LABS: Albumin 3.5 g/dL (3.2-5.2); Albumin/Globulin Ratio 0.9 (1-3); C Reactive Protein 11.83 mg/L (<8.01); Calcium 9.3 mg/dL (8.6-10.3); Globulin 4.1 g/dL (2-4); Magnesium 1.9 mg/dL (1.9-2.7); Potassium 4.3 mmol/L (3.5-5.0); Total Protein 7.6 g/dL (6.4-8.9); eGFR CKD-EPI 49.4 (>60)
[2021-09-18 14:48] LABS: Troponin I 0.01 ng/mL (<0.03)
[2021-09-18 15:19] LABS: Anisocytosis 1+; Microcytosis 2+
[2021-09-18 15:20] LABS: Polychromasia 1+
[2021-09-18] MEDS ORDERED: Vancomycin 1,000 MG in NS 0.9% 250 ml 250 ML IVPB ONE (15:48)
[2021-09-18] MEDS ORDERED: Dextrose 50% Syringe 50 ml 25 GM/50 ML SYRINGE IV PUSH PRN (16:41)
[2021-09-18 16:43] LABS: Urine Appearance Clear; Urine Bilirubin Negative (Negative); Urine Blood Negative (Negative); Urine Color Colorless; Urine Glucose Negative (Negative); Urine Ketones Negative (Negative); Urine Nitrite Negative (Negative); Urine Protein Negative (Negative); Urine Specific Gravity 1.005 (1.002-1.030); Urine Urobilinogen Negative (Negative)
[2021-09-18] MEDS ORDERED: Vancomycin per Pharmacy 1 EA NOTE FOLLOW UP SCH (17:00)
[2021-09-18] MEDS ORDERED: Cefepime 1 GM IV - ED ONCE IV ONE (18:00)
[2021-09-18] MEDS ORDERED: Vancomycin 1,000 MG - ED ONCE IVPB ONE (22:00)
[2021-09-18] MEDS ORDERED: Levalbuterol 1.25MG/0.5ML NEB.SOL INH PRN (22:22)
[2021-09-19 06:12] LABS: ABS Basophils 0.1 10^3/ul (0-0.2); ABS Eosinophils 0.1 10^3/ul (0-0.6); ABS Lymphocytes 2.1 10^3/ul (1.0-4.8); ABS Neutrophils 5.8 10^3/ul (1.5-7.7); Eosinophil % 0.7 %; Hematocrit 29 % (35-47); Hemoglobin 9.4 g/dL (12.0-16.0); Lymphocyte % 23.5 %; Mean Corpuscular HGB Conc 32 g/dL (31-36); Mean Corpuscular Hemoglobin 24 pg (27-31); Mean Corpuscular Volume 75 fL (80-97); Mean Platelet Volume 7.1 fL (7.4-10.4); Platelet Count 607 10^3/uL (150-450); Red Blood Count 3.92 10^6 /uL (3.70-4.87); Red Cell Distribution Width 19 % (10-15)
[2021-09-19 06:27] LABS: Calcium 9.1 mg/dL (8.6-10.3); Potassium 3.6 mmol/L (3.5-5.0); eGFR CKD-EPI 50.4 (>60)
[2021-09-19] MEDS ORDERED: Vancomycin 1,500 MG in NS 0.9% 250 ml 250 ML IVPB SCH (06:30)
[2021-09-19] MEDS: Fluticasone NASAL SPRAY 50MCG 16 gm SPRAY BTL INTRANASAL SCH (07:27)
[2021-09-19] MEDS: Cefepime 1 GM in Dextrose 1 GM/50 ML BAG IV SCH ×2 (09:45→21:49)
[2021-09-19] MEDS: Cholecalciferol (VIT D3) 1,000 unit TAB PO SCH (09:51)
[2021-09-19] MEDS: Insulin GLARGINE 100 un/ml 10 ml VIAL SUBCUT SCH (09:52)
[2021-09-19] MEDS ORDERED: PROTEASE PO SCH (17:00)
[2021-09-19] MEDS ORDERED: AMYLASE PO SCH (17:00)
[2021-09-19] MEDS ORDERED: LIPASE PO SCH (17:00)
[2021-09-19] MEDS: Collagenase 250 units/gm OINT 1 tube TOPICAL SCH (19:34)
[2021-09-20 08:01] VITALS: BP 116/52
[2021-09-20] MEDS: Cefepime 1 GM in Dextrose 1 GM/50 ML BAG IV SCH (08:30)
[2021-09-20] MEDS: Insulin GLARGINE 100 un/ml 10 ml VIAL SUBCUT SCH (08:44)
[2021-09-20] MEDS: Fluticasone NASAL SPRAY 50MCG 16 gm SPRAY BTL INTRANASAL SCH (08:46)
[2021-09-20] MEDS: Cholecalciferol (VIT D3) 1,000 unit TAB PO SCH (08:49)
[2021-09-20] MEDS: Collagenase 250 units/gm OINT 1 tube TOPICAL SCH (10:13)
[2021-09-21] MEDS ORDERED: Vancomycin Trough Check NOTE FOLLOW UP ONE (06:00)
== END 2021-09-20 12:11 | disposition home or self-care (01) ==
LOC: ED 12:37 → EDHOLD 12:37 → SSU 21:32
PROVIDERS: ADMIT Nurse Practitioner; ATTEND Hospitalist

== ENCOUNTER 2022-05-06 15:43 | Inpatient (IN) ==
[2022-05-06] MEDS ORDERED: NS 0.9% 1000 ml BAG 1,000 ML IV ONE (16:28)
[2022-05-06 17:11] LABS: ABS Neutrophils 16.8 10^3/ul (1.5-7.7); Hematocrit 39 % (35-47); Hemoglobin 12.8 g/dL (12.0-16.0); Mean Corpuscular HGB Conc 33 g/dL (31-36); Mean Corpuscular Hemoglobin 29 pg (27-31); Mean Corpuscular Volume 89 fL (80-97); Mean Platelet Volume 7.4 fL (7.4-10.4); Platelet Count 275 10^3/uL (150-450); Red Blood Count 4.44 10^6 /uL (3.70-4.87); Red Cell Distribution Width 16 % (10-15); White Blood Count 19.8 10^3/uL (3.5-10.8)
[2022-05-06 17:51] LABS: Albumin 3.5 g/dL (3.2-5.2); Albumin/Globulin Ratio 0.9 (1-3); Calcium 9.3 mg/dL (8.6-10.3); Potassium 4.3 mmol/L (3.5-5.0); Total Bilirubin 2.4 mg/dL (0.2-1.0); Total Protein 7.5 g/dL (6.4-8.9); eGFR CKD-EPI 30.1 (>60)
[2022-05-06 19:40] LABS: Urine Appearance Clear; Urine Bilirubin Negative (Negative); Urine Blood Negative (Negative); Urine Color Amber; Urine Glucose Negative (Negative); Urine Ketones Negative (Negative); Urine Nitrite Negative (Negative); Urine Protein Negative (Negative)
[2022-05-06] MEDS ORDERED: Piperacillin/Tazobac ADVAN 3.375 GM in NS 0.9% 100 ml BAG 100 ML IV ONE (19:59)
[2022-05-06 21:00] LABS: C Reactive Protein 214.9 mg/L (<8.01)
[2022-05-06] MEDS ORDERED: Levalbuterol 1.25MG/0.5ML NEB.SOL INH PRN (21:38)
[2022-05-06] MEDS ORDERED: Vancomycin 1,000 MG in NS 0.9% 250 ml 250 ML IVPB ONE (21:52)
[2022-05-06] MEDS ORDERED: Vancomycin per Pharmacy 1 EA NOTE FOLLOW UP SCH (22:00)
[2022-05-06] MEDS ORDERED: Cefepime 1 GM IV - ED ONCE IV ONE (22:30)
[2022-05-06] MEDS ORDERED: metroNIDAZOLE IV 500 MG/100ML - ED ONCE IVPB ONE (23:00)
[2022-05-07] MEDS ORDERED: Dextrose 50% Syringe 50 ml 25 GM/50 ML SYRINGE IV PUSH PRN (00:05)
[2022-05-07 06:16] LABS: Hematocrit 37 % (35-47); Hemoglobin 12.1 g/dL (12.0-16.0); Mean Corpuscular HGB Conc 32 g/dL (31-36); Mean Corpuscular Hemoglobin 29 pg (27-31); Mean Corpuscular Volume 90 fL (80-97); Mean Platelet Volume 7.6 fL (7.4-10.4); Platelet Count 256 10^3/uL (150-450); Red Blood Count 4.14 10^6 /uL (3.70-4.87); Red Cell Distribution Width 16 % (10-15); White Blood Count 20.4 10^3/uL (3.5-10.8)
[2022-05-07 06:33] LABS: ABS Basophils 0.1 10^3/ul (0-0.2); ABS Monocytes 1.3 10^3/ul (0-0.8); ABS Neutrophils 15.8 10^3/ul (1.5-7.7); Lymphocyte % 14.7 %
[2022-05-07 06:57] LABS: Albumin 3.1 g/dL (3.2-5.2); CO2 Carbon Dioxide 28 mmol/L (22-32); Calcium 8.7 mg/dL (8.6-10.3); Chloride 99 mmol/L (101-111); Sodium 138 mmol/L (135-145)
[2022-05-07 07:03] LABS: ALT 12 U/L (7-52); Albumin/Globulin Ratio 0.9 (1-3); Alkaline Phosphatase 92 U/L (35-149); Blood Urea Nitrogen 45 mg/dL (6-24); Globulin 3.5 g/dL (2-4); Glucose 94 mg/dL (70-100); Total Protein 6.6 g/dL (6.4-8.9); eGFR CKD-EPI 35.1 (>60)
[2022-05-07 07:17] LABS: Anion Gap 11 mmol/L (2-11)
[2022-05-07] MEDS ORDERED: [UNRECOGNIZED DRUG - OTHER] PO SCH (09:00)
[2022-05-07] MEDS ORDERED: LIPASE PO SCH (09:00)
[2022-05-07] MEDS ORDERED: PROTEASE PO SCH (09:00)
[2022-05-07] MEDS ORDERED: AMYLASE PO SCH (09:00)
[2022-05-07] MEDS: Fluticasone NASAL SPRAY 50MCG 16 gm SPRAY BTL INTRANASAL SCH (09:11)
[2022-05-07] MEDS ORDERED: Ondansetron 4 mg VIAL 2 MG/ML 2 ml VIAL IV PRN (09:27)
[2022-05-07] MEDS: Cefepime 1 GM in Dextrose 1 GM/50 ML BAG IV SCH (10:51)
[2022-05-07] MEDS: metroNIDAZOLE IV 500 MG/100ML 500 MG/100 ML BAG IVPB SCH (11:16)
[2022-05-07 13:17] LABS: Lipase < 10 U/L (11.0-82.0)
[2022-05-07] MEDS ORDERED: Metoclopramide 5 MG/ML VIAL (10 mg) IV ONE (19:58)
[2022-05-07] MEDS ORDERED: Prochlorperazine 5 mg/ml 2 ml VIAL (10 mg) IV ONE (20:08)
[2022-05-08] MEDS: Cefepime 1 GM in Dextrose 1 GM/50 ML BAG IV SCH ×2 (00:57→12:04)
[2022-05-08] MEDS: metroNIDAZOLE IV 500 MG/100ML 500 MG/100 ML BAG IVPB SCH ×2 (01:51→12:59)
[2022-05-08 05:49] LABS: Hematocrit 36 % (35-47); Mean Corpuscular HGB Conc 33 g/dL (31-36); Mean Corpuscular Hemoglobin 30 pg (27-31); Mean Corpuscular Volume 89 fL (80-97); Mean Platelet Volume 7.5 fL (7.4-10.4); Platelet Count 256 10^3/uL (150-450); Red Blood Count 4.05 10^6 /uL (3.70-4.87); Red Cell Distribution Width 15 % (10-15)
[2022-05-08] MEDS ORDERED: Prochlorperazine 5 mg/ml 2 ml VIAL (10 mg) IV ONE (05:50)
[2022-05-08] MEDS ORDERED: Vancomycin 1,250 MG in NS 0.9% 250 ml 250 ML IVPB SCH (06:00)
[2022-05-08 06:13] LABS: Albumin 2.8 g/dL (3.2-5.2); Albumin/Globulin Ratio 0.8 (1-3); Calcium 8.7 mg/dL (8.6-10.3); Globulin 3.5 g/dL (2-4); Magnesium 2.1 mg/dL (1.9-2.7); Potassium 3.8 mmol/L (3.5-5.0); Total Bilirubin 2.3 mg/dL (0.2-1.0); Total Protein 6.3 g/dL (6.4-8.9); eGFR CKD-EPI 49.6 (>60)
[2022-05-08] MEDS ORDERED: Potassium Chlor 20 meq TAB.ER PO ONE (07:05)
[2022-05-08] MEDS ORDERED: KCL 20 MEQ/100 ML IVPREMIX 20 MEQ/100 ML BAG IV ONE (07:48)
[2022-05-08 07:55] LABS: Direct Bilirubin 0.8 mg/dL (0.03-0.18); Indirect Bilirubin 1.5 mg/dL (0.3-1.0)
[2022-05-08] MEDS: Fluticasone NASAL SPRAY 50MCG 16 gm SPRAY BTL INTRANASAL SCH (08:55)
[2022-05-08] MEDS ORDERED: NS 0.9% 1000 ml BAG 1,000 ML IV SCH (09:15)
[2022-05-08] MEDS: Prochlorperazine 5 mg/ml 2 ml VIAL (10 mg) IV PRN ×2 (11:07→21:03)
[2022-05-08] MEDS: ceFAZolin 2 GM in NS PREMIX 2 GM/100 ML BAG IVPB SCH (21:06)
[2022-05-09] MEDS: ceFAZolin 2 GM in NS PREMIX 2 GM/100 ML BAG IVPB SCH ×3 (03:52→21:11)
[2022-05-09 05:06] LABS: Hematocrit 35 % (35-47); Hemoglobin 11.5 g/dL (12.0-16.0); Mean Corpuscular HGB Conc 33 g/dL (31-36); Mean Corpuscular Hemoglobin 30 pg (27-31); Mean Corpuscular Volume 90 fL (80-97); Mean Platelet Volume 7.9 fL (7.4-10.4); Platelet Count 263 10^3/uL (150-450); Red Blood Count 3.88 10^6 /uL (3.70-4.87); Red Cell Distribution Width 15 % (10-15); White Blood Count 10.6 10^3/uL (3.5-10.8)
[2022-05-09 05:50] LABS: Albumin 2.8 g/dL (3.2-5.2); Albumin/Globulin Ratio 0.8 (1-3); Calcium 8.5 mg/dL (8.6-10.3); Direct Bilirubin 0.7 mg/dL (0.03-0.18); Globulin 3.4 g/dL (2-4); Magnesium 2.2 mg/dL (1.9-2.7); Potassium 4.1 mmol/L (3.5-5.0); Total Bilirubin 1.7 mg/dL (0.2-1.0); Total Protein 6.2 g/dL (6.4-8.9); eGFR CKD-EPI 48.6 (>60)
[2022-05-09] MEDS: Prochlorperazine 5 mg/ml 2 ml VIAL (10 mg) IV PRN (08:51)
[2022-05-09] MEDS: Fluticasone NASAL SPRAY 50MCG 16 gm SPRAY BTL INTRANASAL SCH (11:00)
[2022-05-09 11:28] LABS: Rapid COVID-19 Molecular Undetected (Undetected)
[2022-05-09] MEDS: ceFAZolin 2 GM PREMIX 2 GM/50 ML BAG IVPB SCH (20:37)
[2022-05-10] MEDS: ceFAZolin 2 GM PREMIX 2 GM/50 ML BAG IVPB SCH ×3 (05:28→20:53)
[2022-05-10] MEDS ORDERED: Vancomycin Trough Check NOTE FOLLOW UP ONE (05:30)
[2022-05-10 05:41] LABS: Hematocrit 35 % (35-47); Hemoglobin 11.7 g/dL (12.0-16.0); Mean Corpuscular HGB Conc 34 g/dL (31-36); Mean Corpuscular Hemoglobin 30 pg (27-31); Mean Corpuscular Volume 89 fL (80-97); Mean Platelet Volume 7.8 fL (7.4-10.4); Platelet Count 317 10^3/uL (150-450); Red Blood Count 3.86 10^6 /uL (3.70-4.87); Red Cell Distribution Width 16 % (10-15); White Blood Count 11.6 10^3/uL (3.5-10.8)
[2022-05-10] MEDS: Prochlorperazine 5 mg/ml 2 ml VIAL (10 mg) IV PRN ×2 (06:17→16:15)
[2022-05-10 06:52] LABS: Calcium 8.6 mg/dL (8.6-10.3); Magnesium 1.8 mg/dL (1.9-2.7); Potassium 3.9 mmol/L (3.5-5.0); eGFR CKD-EPI 50.6 (>60)
[2022-05-10] MEDS: Magnesium Sulfate 2 gm BAG 2 GM/50 ML BAG IVPB ONE ×2 (09:00→10:30)
[2022-05-10] MEDS: Fluticasone NASAL SPRAY 50MCG 16 gm SPRAY BTL INTRANASAL SCH (09:00)
[2022-05-10 10:01] LABS: C Reactive Protein 161.66 mg/L (<8.01)
[2022-05-10] MEDS ORDERED: Iodixanol (CONTRAST) 320 MG/ML 100 ML SDV IV ONE (12:06)
[2022-05-10] MEDS: Neomycin/Polym/Bacit TOP OINT 15 GM TOPICAL SCH ×2 (17:48→20:57)
[2022-05-11] MEDS: ceFAZolin 2 GM PREMIX 2 GM/50 ML BAG IVPB SCH ×3 (04:15→21:13)
[2022-05-11 05:23] LABS: Hematocrit 33 % (35-47); Hemoglobin 11.1 g/dL (12.0-16.0); Mean Corpuscular HGB Conc 34 g/dL (31-36); Mean Corpuscular Hemoglobin 30 pg (27-31); Mean Corpuscular Volume 89 fL (80-97); Mean Platelet Volume 7.8 fL (7.4-10.4); Platelet Count 335 10^3/uL (150-450); Red Blood Count 3.73 10^6 /uL (3.70-4.87); Red Cell Distribution Width 15 % (10-15); White Blood Count 11.3 10^3/uL (3.5-10.8)
[2022-05-11 05:40] LABS: Calcium 8.5 mg/dL (8.6-10.3); Potassium 3.8 mmol/L (3.5-5.0); eGFR CKD-EPI 55.7 (>60)
[2022-05-11] MEDS: Prochlorperazine 5 mg/ml 2 ml VIAL (10 mg) IV PRN (08:59)
[2022-05-11] MEDS: Neomycin/Polym/Bacit TOP OINT 15 GM TOPICAL SCH ×2 (09:04→21:20)
[2022-05-11] MEDS: Fluticasone NASAL SPRAY 50MCG 16 gm SPRAY BTL INTRANASAL SCH (09:04)
[2022-05-12] MEDS: ceFAZolin 2 GM PREMIX 2 GM/50 ML BAG IVPB SCH ×3 (05:08→20:39)
[2022-05-12 06:26] LABS: Hematocrit 33 % (35-47); Hemoglobin 11.4 g/dL (12.0-16.0); Mean Corpuscular HGB Conc 34 g/dL (31-36); Mean Corpuscular Hemoglobin 31 pg (27-31); Mean Corpuscular Volume 89 fL (80-97); Mean Platelet Volume 7.7 fL (7.4-10.4); Platelet Count 369 10^3/uL (150-450); Red Blood Count 3.74 10^6 /uL (3.70-4.87); Red Cell Distribution Width 15 % (10-15); White Blood Count 9.5 10^3/uL (3.5-10.8)
[2022-05-12 06:42] LABS: Calcium 8.7 mg/dL (8.6-10.3); Magnesium 2.1 mg/dL (1.9-2.7); Potassium 4.3 mmol/L (3.5-5.0)
[2022-05-12] MEDS: Insulin GLARGINE 100 un/ml 10 ml VIAL SUBCUT SCH (09:03)
[2022-05-12] MEDS: Prochlorperazine 5 mg/ml 2 ml VIAL (10 mg) IV PRN (09:10)
[2022-05-12] MEDS: Fluticasone NASAL SPRAY 50MCG 16 gm SPRAY BTL INTRANASAL SCH (09:15)
[2022-05-12] MEDS: Neomycin/Polym/Bacit TOP OINT 15 GM TOPICAL SCH ×2 (09:18→20:40)
[2022-05-13] MEDS: ceFAZolin 2 GM PREMIX 2 GM/50 ML BAG IVPB SCH ×3 (05:32→21:37)
[2022-05-13] MEDS: Insulin GLARGINE 100 un/ml 10 ml VIAL SUBCUT SCH (08:57)
[2022-05-13] MEDS: Neomycin/Polym/Bacit TOP OINT 15 GM TOPICAL SCH ×2 (08:58→21:37)
[2022-05-13] MEDS: Fluticasone NASAL SPRAY 50MCG 16 gm SPRAY BTL INTRANASAL SCH (08:58)
[2022-05-13] MEDS ORDERED: Dextrose 50% Syringe 50 ml 25 GM/50 ML SYRINGE IV PUSH PRN (15:04)
[2022-05-14] MEDS: ceFAZolin 2 GM PREMIX 2 GM/50 ML BAG IVPB SCH ×3 (05:38→20:58)
[2022-05-14] MEDS: Prochlorperazine 5 mg/ml 2 ml VIAL (10 mg) IV PRN (07:56)
[2022-05-14] MEDS ORDERED: Insulin GLARGINE 100 un/ml 10 ml VIAL SUBCUT SCH (09:00)
[2022-05-14] MEDS: Insulin GLARGINE 100 un/ml 10 ml VIAL SUBCUT SCH (09:15)
[2022-05-14] MEDS: Fluticasone NASAL SPRAY 50MCG 16 gm SPRAY BTL INTRANASAL SCH (09:16)
[2022-05-14] MEDS: Neomycin/Polym/Bacit TOP OINT 15 GM TOPICAL SCH ×2 (09:17→20:59)
[2022-05-14 14:21] LABS: Hematocrit 35 % (35-47); Hemoglobin 11.3 g/dL (12.0-16.0); Mean Corpuscular HGB Conc 32 g/dL (31-36); Mean Corpuscular Hemoglobin 29 pg (27-31); Mean Corpuscular Volume 89 fL (80-97); Mean Platelet Volume 7.2 fL (7.4-10.4); Platelet Count 425 10^3/uL (150-450); Red Blood Count 3.92 10^6 /uL (3.70-4.87); Red Cell Distribution Width 15 % (10-15); White Blood Count 11.4 10^3/uL (3.5-10.8)
[2022-05-14 14:47] LABS: ABS Basophils 0.1 10^3/ul (0-0.2); ABS Eosinophils 0.1 10^3/ul (0-0.6); ABS Lymphocytes 1.4 10^3/ul (1.0-4.8); ABS Monocytes 0.6 10^3/ul (0-0.8); ABS Neutrophils 9.3 10^3/ul (1.5-7.7); Eosinophil % 0.6 %
[2022-05-14 15:11] LABS: Magnesium 1.9 mg/dL (1.9-2.7); eGFR CKD-EPI 56.3 (>60)
[2022-05-14 15:17] LABS: Potassium 5.3 mmol/L (3.5-5.0)
[2022-05-14] MEDS ORDERED: SODIUM ZIRCONIUM CYCLOSILICATE 5 GM PACKET PO ONE (16:16)
[2022-05-15 06:11] LABS: Hematocrit 33 % (35-47); Hemoglobin 11.1 g/dL (12.0-16.0); Mean Corpuscular HGB Conc 33 g/dL (31-36); Mean Corpuscular Hemoglobin 30 pg (27-31); Mean Corpuscular Volume 89 fL (80-97); Mean Platelet Volume 7.3 fL (7.4-10.4); Platelet Count 418 10^3/uL (150-450); Red Blood Count 3.75 10^6 /uL (3.70-4.87); Red Cell Distribution Width 15 % (10-15); White Blood Count 11.1 10^3/uL (3.5-10.8)
[2022-05-15 06:39] LABS: Calcium 8.7 mg/dL (8.6-10.3); Magnesium 1.9 mg/dL (1.9-2.7); Potassium 4.7 mmol/L (3.5-5.0); eGFR CKD-EPI 69.1 (>60)
[2022-05-15] MEDS ORDERED: Magnesium Sulfate 2 gm BAG 2 GM/50 ML BAG IVPB ONE (07:19)
[2022-05-15] MEDS: Insulin GLARGINE 100 un/ml 10 ml VIAL SUBCUT SCH (09:10)
[2022-05-15] MEDS: Fluticasone NASAL SPRAY 50MCG 16 gm SPRAY BTL INTRANASAL SCH (09:12)
[2022-05-15] MEDS: Neomycin/Polym/Bacit TOP OINT 15 GM TOPICAL SCH (09:12)
[2022-05-15] MEDS ORDERED: Magnesium Hydroxide LIQ 30 ML UDC PO ONE (09:50)
[2022-05-15 11:20] VITALS: BP 110/48
== END 2022-05-15 13:20 | disposition home or self-care (01) | DRG 872 ==
LOC: EDHOLD 15:43 → ED 15:43 → SUATTDRO 20:39 → MED 05-07 14:53 → SUATTDRO 05-08 12:16
PROVIDERS: ADMIT Internal Medicine; ATTEND Internal Medicine

== ENCOUNTER 2022-11-16 18:35 | Inpatient (IN) ==
[2022-11-16 20:26] LABS: Venous Bicarbonate HCO3 26.2 mmol/L (24-28)
[2022-11-16 20:27] LABS: ABS Basophils 0.1 10^3/ul (0-0.2); ABS Monocytes 1.1 10^3/ul (0-0.8); ABS Neutrophils 17.6 10^3/ul (1.5-7.7); Eosinophil % 0.1 %; Hematocrit 34 % (35-47); Hemoglobin 10.9 g/dL (12.0-16.0); Lymphocyte % 9.5 %; Mean Corpuscular HGB Conc 32 g/dL (31-36); Mean Corpuscular Hemoglobin 27 pg (27-31); Mean Corpuscular Volume 83 fL (80-97); Mean Platelet Volume 7.7 fL (7.4-10.4); Platelet Count 375 10^3/uL (150-450); Red Blood Count 4.06 10^6 /uL (3.70-4.87); Red Cell Distribution Width 17 % (10-15); White Blood Count 20.8 10^3/uL (3.5-10.8)
[2022-11-16 20:41] LABS: INR 2.37 (0.88-1.18)
[2022-11-16 20:57] LABS: Albumin 3.2 g/dL (3.2-5.2); Calcium 8.9 mg/dL (8.6-10.3); Creatinine, Serum 1.52 mg/dL (0.51-0.95); Potassium 4.2 mmol/L (3.5-5.0); Total Protein 6.5 g/dL (6.4-8.9); eGFR CKD-EPI 37.4 (>60)
[2022-11-16 20:58] LABS: C Reactive Protein 169.43 mg/L (<8.01); Globulin 3.3 g/dL (2-4); Total Bilirubin 1.7 mg/dL (0.2-1.0)
[2022-11-16] MEDS ORDERED: Cefepime 2 GM in Dextrose 2 GM/50 ML BAG IV ONE (21:12)
[2022-11-16] MEDS ORDERED: Iodixanol (CONTRAST) 320 MG/ML 100 ML SDV IV ONE (21:14)
[2022-11-16 21:47] LABS: High Sensitivity Troponin 1 Hr 13 pg/mL (<15)
[2022-11-16] MEDS ORDERED: Vancomycin 1,500 MG in NS 0.9% 250 ml 250 ML IVPB ONE (22:00)
[2022-11-16 22:38] LABS: Urine Appearance Clear; Urine Bilirubin Negative (Negative); Urine Blood Negative (Negative); Urine Color Amber; Urine Glucose Negative (Negative); Urine Ketones Negative (Negative); Urine Nitrite Negative (Negative); Urine Protein Negative (Negative); Urine Specific Gravity 1.031 (1.002-1.030); Urine Urobilinogen Negative (Negative)
[2022-11-16] MEDS ORDERED: Lactated Ringers 1000 ml BAG 1,000 ML IV SCH (23:00)
[2022-11-17] MEDS ORDERED: Ondansetron 4 mg VIAL 2 MG/ML 2 ml VIAL IV ONE (00:15)
[2022-11-17] MEDS: Senna TAB 8.6 mg TAB PO SCH ×2 (00:20→22:10)
[2022-11-17] MEDS ORDERED: Dextrose 50% Syringe 50 ml 25 GM/50 ML SYRINGE IV PUSH PRN (00:58)
[2022-11-17] MEDS ORDERED: Vancomycin per Pharmacy 1 EA NOTE FOLLOW UP SCH (01:00)
[2022-11-17] MEDS ORDERED: Ondansetron ODT 4 mg TAB 4 MG TAB PO PRN (01:24)
[2022-11-17] MEDS ORDERED: Polyethylene Glycol 3350 17 GM PACKET PO SCH (08:00)
[2022-11-17] MEDS: Polyethylene Glycol 3350 17 GM PACKET PO SCH ×2 (08:46→17:22)
[2022-11-17] MEDS: Cholecalciferol (VIT D3) 1,000 unit TAB PO SCH (08:46)
[2022-11-17] MEDS: Insulin GLARGINE 100 un/ml 10 ml VIAL SUBCUT SCH (08:46)
[2022-11-17] MEDS: Aspirin EC 81 mg TAB.EC (enteric coated) PO SCH (08:46)
[2022-11-17 08:58] LABS: ABS Lymphocytes 2.3 10^3/ul (1.0-4.8); ABS Monocytes 0.8 10^3/ul (0-0.8); ABS Neutrophils 11.4 10^3/ul (1.5-7.7); Eosinophil % 0.3 %; Hematocrit 34 % (35-47); Hemoglobin 10.8 g/dL (12.0-16.0); Lymphocyte % 15.5 %; Mean Corpuscular HGB Conc 31 g/dL (31-36); Mean Corpuscular Hemoglobin 26 pg (27-31); Mean Corpuscular Volume 83 fL (80-97); Mean Platelet Volume 7.6 fL (7.4-10.4); Platelet Count 398 10^3/uL (150-450); Red Blood Count 4.13 10^6 /uL (3.70-4.87); Red Cell Distribution Width 18 % (10-15); White Blood Count 14.5 10^3/uL (3.5-10.8)
[2022-11-17] MEDS ORDERED: Pancrelipase 5,000 units CAP PO SCH (09:00)
[2022-11-17] MEDS ORDERED: Insulin GLARGINE 100 un/ml 10 ml VIAL SUBCUT SCH (09:00)
[2022-11-17 09:07] LABS: INR 2.57 (0.88-1.18)
[2022-11-17 09:13] LABS: Calcium 9.5 mg/dL (8.6-10.3); Creatinine, Serum 1.42 mg/dL (0.51-0.95); Potassium 3.8 mmol/L (3.5-5.0); eGFR CKD-EPI 40.5 (>60)
[2022-11-17] MEDS: Fluticasone NASAL SPRAY 50MCG 16 gm SPRAY BTL INTRANASAL SCH (10:41)
[2022-11-17] MEDS: Phytonadione IV (Adult) 5 MG in NS 0.9% 50 ML 50 ML IV SCH (12:05)
[2022-11-17] MEDS: Cefepime 2 GM in Dextrose 2 GM/50 ML BAG IV SCH ×2 (12:27→22:07)
[2022-11-17] MEDS: Vancomycin 1,500 MG in NS 0.9% 250 ml 250 ML IVPB SCH (17:51)
[2022-11-17] MEDS: Pancrelipase 5,000 units CAP PO SCH (22:09)
[2022-11-18 06:52] LABS: Hematocrit 31 % (35-47); Hemoglobin 9.8 g/dL (12.0-16.0); Mean Corpuscular HGB Conc 32 g/dL (31-36); Mean Corpuscular Hemoglobin 27 pg (27-31); Mean Corpuscular Volume 84 fL (80-97); Mean Platelet Volume 7.4 fL (7.4-10.4); Platelet Count 328 10^3/uL (150-450); Red Blood Count 3.66 10^6 /uL (3.70-4.87); Red Cell Distribution Width 17 % (10-15); White Blood Count 9.3 10^3/uL (3.5-10.8)
[2022-11-18 07:01] LABS: Calcium 8.6 mg/dL (8.6-10.3); Magnesium 2.2 mg/dL (1.9-2.7); Potassium 4.1 mmol/L (3.5-5.0)
[2022-11-18 07:07] LABS: Creatinine, Serum 1.43 mg/dL (0.51-0.95); eGFR CKD-EPI 40.2 (>60)
[2022-11-18 08:29] LABS: ABS Basophils 0.1 10^3/ul (0-0.2); ABS Eosinophils 0.2 10^3/ul (0-0.6); ABS Lymphocytes 2.2 10^3/ul (1.0-4.8); ABS Neutrophils 5.8 10^3/ul (1.5-7.7); Eosinophil % 1.9 %; Lymphocyte % 24.2 %
[2022-11-18] MEDS: Polyethylene Glycol 3350 17 GM PACKET PO SCH ×2 (08:44→17:17)
[2022-11-18] MEDS: Cholecalciferol (VIT D3) 1,000 unit TAB PO SCH (08:44)
[2022-11-18] MEDS: Insulin GLARGINE 100 un/ml 10 ml VIAL SUBCUT SCH (08:45)
[2022-11-18] MEDS: Aspirin EC 81 mg TAB.EC (enteric coated) PO SCH (08:45)
[2022-11-18 08:47] LABS: Albumin 2.8 g/dL (3.2-5.2); Total Bilirubin 1.1 mg/dL (0.2-1.0)
[2022-11-18 08:53] LABS: Albumin/Globulin Ratio 0.9 (1-3); Globulin 3.2 g/dL (2-4)
[2022-11-18] MEDS: Cefepime 2 GM in Dextrose 2 GM/50 ML BAG IV SCH ×2 (09:01→22:22)
[2022-11-18 09:11] LABS: INR 2.04 (0.88-1.18)
[2022-11-18] MEDS: Fluticasone NASAL SPRAY 50MCG 16 gm SPRAY BTL INTRANASAL SCH (11:18)
[2022-11-18] MEDS: Phytonadione IV (Adult) 5 MG in NS 0.9% 50 ML 50 ML IV SCH (11:38)
[2022-11-18] MEDS ORDERED: Glycerin ADULT 2.4 gm SUPP PR ONE (12:05)
[2022-11-18] MEDS: guaiFENesin 100 mg/5 ml LIQ unit dose cup PO PRN (14:05)
[2022-11-18] MEDS: Vancomycin 1,500 MG in NS 0.9% 250 ml 250 ML IVPB SCH (14:16)
[2022-11-18] MEDS: Pancrelipase 5,000 units CAP PO SCH (22:27)
[2022-11-18] MEDS: Senna TAB 8.6 mg TAB PO SCH (22:29)
[2022-11-19 07:03] LABS: Albumin/Globulin Ratio 0.9 (1-3); Calcium 8.8 mg/dL (8.6-10.3); Creatinine, Serum 1.62 mg/dL (0.51-0.95); Globulin 3.3 g/dL (2-4); Total Bilirubin 0.9 mg/dL (0.2-1.0); Total Protein 6.3 g/dL (6.4-8.9); eGFR CKD-EPI 34.6 (>60)
[2022-11-19] MEDS: Polyethylene Glycol 3350 17 GM PACKET PO SCH ×2 (08:30→17:29)
[2022-11-19] MEDS: Fluticasone NASAL SPRAY 50MCG 16 gm SPRAY BTL INTRANASAL SCH (08:30)
[2022-11-19] MEDS: Aspirin EC 81 mg TAB.EC (enteric coated) PO SCH (08:31)
[2022-11-19] MEDS: Cholecalciferol (VIT D3) 1,000 unit TAB PO SCH (08:31)
[2022-11-19] MEDS: Insulin GLARGINE 100 un/ml 10 ml VIAL SUBCUT SCH (08:32)
[2022-11-19] MEDS: Cefepime 2 GM in Dextrose 2 GM/50 ML BAG IV SCH (08:35)
[2022-11-19] MEDS ORDERED: cefTRIAXone 1 gm/50 mL D5W 1 GM/50 ML BAG IV SCH ×2 (09:30→21:00)
[2022-11-19] MEDS: Phytonadione IV (Adult) 5 MG in NS 0.9% 50 ML 50 ML IV SCH (10:50)
[2022-11-19 12:26] LABS: Magnesium 2.1 mg/dL (1.9-2.7)
[2022-11-19] MEDS: guaiFENesin 100 mg/5 ml LIQ unit dose cup PO PRN (13:36)
[2022-11-19 14:05] LABS: High Sensitivity Troponin 1 Hr 11 pg/mL (<15)
[2022-11-19] MEDS ORDERED: Vancomycin Trough Check NOTE FOLLOW UP ONE (14:30)
[2022-11-19] MEDS: Levalbuterol 1.25MG/0.5ML NEB.SOL INH PRN (15:01)
[2022-11-19] MEDS: Senna TAB 8.6 mg TAB PO SCH (22:26)
[2022-11-19] MEDS: Pancrelipase 5,000 units CAP PO SCH (22:27)
[2022-11-20] MEDS: Levalbuterol 1.25MG/0.5ML NEB.SOL INH PRN (07:29)
[2022-11-20 07:31] LABS: ABS Basophils 0.1 10^3/ul (0-0.2); ABS Eosinophils 0.2 10^3/ul (0-0.6); ABS Lymphocytes 2.5 10^3/ul (1.0-4.8); ABS Neutrophils 4.1 10^3/ul (1.5-7.7); Eosinophil % 2.1 %; Hematocrit 33 % (35-47); Hemoglobin 11.1 g/dL (12.0-16.0); Lymphocyte % 32.4 %; Mean Corpuscular HGB Conc 33 g/dL (31-36); Mean Corpuscular Hemoglobin 27 pg (27-31); Mean Corpuscular Volume 81 fL (80-97); Mean Platelet Volume 7.1 fL (7.4-10.4); Platelet Count 396 10^3/uL (150-450); Red Blood Count 4.13 10^6 /uL (3.70-4.87); Red Cell Distribution Width 17 % (10-15); White Blood Count 7.8 10^3/uL (3.5-10.8)
[2022-11-20 07:39] LABS: INR 1.73 (0.88-1.18)
[2022-11-20 08:25] LABS: Calcium 9.1 mg/dL (8.6-10.3); Creatinine, Serum 1.56 mg/dL (0.51-0.95); Magnesium 2.2 mg/dL (1.9-2.7); eGFR CKD-EPI 36.2 (>60)
[2022-11-20] MEDS: Insulin GLARGINE 100 un/ml 10 ml VIAL SUBCUT SCH (08:38)
[2022-11-20] MEDS: Fluticasone NASAL SPRAY 50MCG 16 gm SPRAY BTL INTRANASAL SCH (08:38)
[2022-11-20] MEDS: Aspirin EC 81 mg TAB.EC (enteric coated) PO SCH (08:39)
[2022-11-20] MEDS: Cholecalciferol (VIT D3) 1,000 unit TAB PO SCH (08:39)
[2022-11-20] MEDS: Polyethylene Glycol 3350 17 GM PACKET PO SCH ×2 (09:14→17:33)
[2022-11-20] MEDS: Senna TAB 8.6 mg TAB PO SCH (22:18)
[2022-11-20] MEDS: Pancrelipase 5,000 units CAP PO SCH (22:19)
[2022-11-21 06:39] LABS: ABS Basophils 0.1 10^3/ul (0-0.2); ABS Eosinophils 0.2 10^3/ul (0-0.6); ABS Lymphocytes 2.5 10^3/ul (1.0-4.8); ABS Monocytes 1.1 10^3/ul (0-0.8); ABS Neutrophils 5.1 10^3/ul (1.5-7.7); Hematocrit 34 % (35-47); Hemoglobin 10.9 g/dL (12.0-16.0); Lymphocyte % 27.9 %; Mean Corpuscular HGB Conc 32 g/dL (31-36); Mean Corpuscular Hemoglobin 26 pg (27-31); Mean Corpuscular Volume 81 fL (80-97); Mean Platelet Volume 7.3 fL (7.4-10.4); Nucleated Red Blood Cells % 0.1; Platelet Count 392 10^3/uL (150-450); Red Blood Count 4.23 10^6 /uL (3.70-4.87); Red Cell Distribution Width 17 % (10-15)
[2022-11-21 07:00] LABS: Calcium 9.1 mg/dL (8.6-10.3); Creatinine, Serum 1.61 mg/dL (0.51-0.95); Magnesium 2.2 mg/dL (1.9-2.7); Potassium 4.1 mmol/L (3.5-5.0); eGFR CKD-EPI 34.9 (>60)
[2022-11-21] MEDS: Aspirin EC 81 mg TAB.EC (enteric coated) PO SCH (08:33)
[2022-11-21] MEDS: Polyethylene Glycol 3350 17 GM PACKET PO SCH ×2 (08:34→17:58)
[2022-11-21] MEDS: Cholecalciferol (VIT D3) 1,000 unit TAB PO SCH (08:34)
[2022-11-21] MEDS: Insulin GLARGINE 100 un/ml 10 ml VIAL SUBCUT SCH (08:35)
[2022-11-21] MEDS: Fluticasone NASAL SPRAY 50MCG 16 gm SPRAY BTL INTRANASAL SCH (08:35)
[2022-11-21] MEDS ORDERED: Sodium Phosphate ADULT ENEMA 133 ML BTL PR ONE (15:04)
[2022-11-21] MEDS: Pancrelipase 5,000 units CAP PO SCH (22:14)
[2022-11-21] MEDS: Senna TAB 8.6 mg TAB PO SCH (22:15)
[2022-11-21] MEDS: guaiFENesin 100 mg/5 ml LIQ unit dose cup PO PRN (22:26)
[2022-11-22 06:26] LABS: ABS Basophils 0.1 10^3/ul (0-0.2); ABS Eosinophils 0.2 10^3/ul (0-0.6); ABS Lymphocytes 2.5 10^3/ul (1.0-4.8); ABS Monocytes 1.2 10^3/ul (0-0.8); Eosinophil % 2.4 %; Hematocrit 34 % (35-47); Lymphocyte % 28.1 %; Mean Corpuscular HGB Conc 33 g/dL (31-36); Mean Corpuscular Hemoglobin 26 pg (27-31); Mean Corpuscular Volume 81 fL (80-97); Mean Platelet Volume 7.2 fL (7.4-10.4); Nucleated Red Blood Cells % 0.1; Platelet Count 408 10^3/uL (150-450); Red Blood Count 4.19 10^6 /uL (3.70-4.87); Red Cell Distribution Width 17 % (10-15); White Blood Count 8.9 10^3/uL (3.5-10.8)
[2022-11-22 06:36] LABS: INR 1.46 (0.88-1.18)
[2022-11-22 06:47] LABS: Calcium 9.3 mg/dL (8.6-10.3); Creatinine, Serum 1.55 mg/dL (0.51-0.95); eGFR CKD-EPI 36.5 (>60)
[2022-11-22] MEDS: Aspirin EC 81 mg TAB.EC (enteric coated) PO SCH (08:43)
[2022-11-22] MEDS: Cholecalciferol (VIT D3) 1,000 unit TAB PO SCH (08:43)
[2022-11-22] MEDS: Polyethylene Glycol 3350 17 GM PACKET PO SCH ×2 (08:45→17:36)
[2022-11-22] MEDS: Insulin GLARGINE 100 un/ml 10 ml VIAL SUBCUT SCH (08:45)
[2022-11-22] MEDS: Fluticasone NASAL SPRAY 50MCG 16 gm SPRAY BTL INTRANASAL SCH (08:49)
[2022-11-22] MEDS ORDERED: ISOSORBIDE DINITRATE 30 MG PO SCH (17:30)
[2022-11-22] MEDS: guaiFENesin 100 mg/5 ml LIQ unit dose cup PO PRN (21:57)
[2022-11-22] MEDS: Senna TAB 8.6 mg TAB PO SCH (21:58)
[2022-11-22] MEDS: Pancrelipase 5,000 units CAP PO SCH (21:58)
[2022-11-23 06:14] LABS: INR 1.71 (0.88-1.18)
[2022-11-23 06:37] LABS: Calcium 9.5 mg/dL (8.6-10.3); Creatinine, Serum 1.51 mg/dL (0.51-0.95); Potassium 4.3 mmol/L (3.5-5.0); eGFR CKD-EPI 37.7 (>60)
[2022-11-23] MEDS: Insulin GLARGINE 100 un/ml 10 ml VIAL SUBCUT SCH (08:29)
[2022-11-23] MEDS: Aspirin EC 81 mg TAB.EC (enteric coated) PO SCH (08:32)
[2022-11-23] MEDS: Cholecalciferol (VIT D3) 1,000 unit TAB PO SCH (08:32)
[2022-11-23] MEDS: Polyethylene Glycol 3350 17 GM PACKET PO SCH ×2 (08:32→17:07)
[2022-11-23] MEDS: Fluticasone NASAL SPRAY 50MCG 16 gm SPRAY BTL INTRANASAL SCH (08:44)
[2022-11-23] MEDS: Senna TAB 8.6 mg TAB PO SCH (21:28)
[2022-11-23] MEDS: Pancrelipase 5,000 units CAP PO SCH (21:28)
[2022-11-23] MEDS: guaiFENesin 100 mg/5 ml LIQ unit dose cup PO PRN (22:59)
[2022-11-24] MEDS: Polyethylene Glycol 3350 17 GM PACKET PO SCH ×2 (08:42→16:14)
[2022-11-24] MEDS: Insulin GLARGINE 100 un/ml 10 ml VIAL SUBCUT SCH (08:43)
[2022-11-24] MEDS: Cholecalciferol (VIT D3) 1,000 unit TAB PO SCH (08:51)
[2022-11-24] MEDS: Aspirin EC 81 mg TAB.EC (enteric coated) PO SCH (08:51)
[2022-11-24] MEDS: Fluticasone NASAL SPRAY 50MCG 16 gm SPRAY BTL INTRANASAL SCH (09:41)
[2022-11-24] MEDS: guaiFENesin 100 mg/5 ml LIQ unit dose cup PO PRN (22:27)
[2022-11-24] MEDS: Senna TAB 8.6 mg TAB PO SCH (22:28)
[2022-11-24] MEDS: Pancrelipase 5,000 units CAP PO SCH (22:29)
[2022-11-25] MEDS: Aspirin EC 81 mg TAB.EC (enteric coated) PO SCH (08:54)
[2022-11-25] MEDS: Cholecalciferol (VIT D3) 1,000 unit TAB PO SCH (08:55)
[2022-11-25] MEDS: Polyethylene Glycol 3350 17 GM PACKET PO SCH ×2 (08:59→17:07)
[2022-11-25] MEDS: Insulin GLARGINE 100 un/ml 10 ml VIAL SUBCUT SCH (08:59)
[2022-11-25] MEDS: guaiFENesin 100 mg/5 ml LIQ unit dose cup PO PRN (09:10)
[2022-11-25] MEDS: Fluticasone NASAL SPRAY 50MCG 16 gm SPRAY BTL INTRANASAL SCH (11:16)
[2022-11-25] MEDS: Pancrelipase 5,000 units CAP PO SCH (21:40)
[2022-11-25] MEDS: Senna TAB 8.6 mg TAB PO SCH (21:51)
[2022-11-26 06:26] LABS: INR 1.67 (0.88-1.18)
[2022-11-26 06:28] LABS: ABS Basophils 0.1 10^3/ul (0-0.2); ABS Eosinophils 0.1 10^3/ul (0-0.6); ABS Neutrophils 7.7 10^3/ul (1.5-7.7); Eosinophil % 0.9 %; Hematocrit 35 % (35-47); Hemoglobin 11.3 g/dL (12.0-16.0); Lymphocyte % 25.3 %; Mean Corpuscular HGB Conc 32 g/dL (31-36); Mean Corpuscular Hemoglobin 26 pg (27-31); Mean Corpuscular Volume 81 fL (80-97); Mean Platelet Volume 7.6 fL (7.4-10.4); Nucleated Red Blood Cells % 0.1; Platelet Count 436 10^3/uL (150-450); Red Blood Count 4.39 10^6 /uL (3.70-4.87); Red Cell Distribution Width 17 % (10-15); White Blood Count 11.8 10^3/uL (3.5-10.8)
[2022-11-26 06:52] LABS: Calcium 9.2 mg/dL (8.6-10.3); Creatinine, Serum 1.66 mg/dL (0.51-0.95); Magnesium 2.5 mg/dL (1.9-2.7); Potassium 4.3 mmol/L (3.5-5.0); eGFR CKD-EPI 33.6 (>60)
[2022-11-26] MEDS: Insulin GLARGINE 100 un/ml 10 ml VIAL SUBCUT SCH (08:28)
[2022-11-26] MEDS: Cholecalciferol (VIT D3) 1,000 unit TAB PO SCH (08:29)
[2022-11-26] MEDS: Aspirin EC 81 mg TAB.EC (enteric coated) PO SCH (08:29)
[2022-11-26] MEDS: Polyethylene Glycol 3350 17 GM PACKET PO SCH (08:30)
[2022-11-26 10:15] VITALS: BP 123/74
[2022-11-26] MEDS: Fluticasone NASAL SPRAY 50MCG 16 gm SPRAY BTL INTRANASAL SCH (12:06)
== END 2022-11-26 12:25 | disposition home or self-care (01) | DRG 871 ==
LOC: ED 18:35 → EDHOLD 11-17 00:59 → SUATTDRO 11-17 00:59 → MED 11-17 07:51
PROVIDERS: ADMIT Hospitalist; ATTEND Family Medicine